=== PATIENT | female | born 1945 | race Caucasian/White ===

== ENCOUNTER → 2020-05-22 10:37 | Outpatient (BNVA) | payer MEDICARE, BC, OTHER, SELFPAY | PROVIDERS: PCP Nurse Practitioner Family; Referring Provider Nurse Practitioner Family; Visit Provider Nurse Practitioner Gerontology | DX: E11.22 Type 2 diabetes mellitus with diabetic chronic kidney disease (principal); E11.40 Type 2 diabetes mellitus with diabetic neuropathy, unspecified; E11.29 Type 2 diabetes mellitus with other diabetic kidney complication; I12.9 Hypertensive chronic kidney disease with stage 1 through stage 4 chronic kidney disease, or unspecified chronic kidney disease; N18.30 Chronic kidney disease, stage 3 unspecified; R80.9 Proteinuria, unspecified; E78.5 Hyperlipidemia, unspecified; Z91.040 Latex allergy status; Z88.2 Allergy status to sulfonamides; Z88.8 Allergy status to other drugs, medicaments and biological substances; Z91.048 Other nonmedicinal substance allergy status; Z79.899 Other long term (current) drug therapy | CPT/HCPCS: 82947; 99212 ==

== ENCOUNTER → 2020-06-05 11:25 | Outpatient (REF) | payer MEDICARE, BC, OTHER, SELFPAY ==
--- NOTE | 2020-06-05 11:37 | CA_ITS ---
Transthoracic Echocardiogram Patient (Last, First, Middle): Wanda Blum M Gender: Female Date of : 1945 Age: 74 Procedure Date: 06/05/2020 Procedure Type: Transthoracic Echocardiogram Location: OP Height: 152.4 cm Weight: 89.81 kg BSA: 1.86 m2 Heart Rate: bpm BP: 128 / 81 mmHg Lapel Baster: LULU Referring MD: Mitul BERMAN Symptoms: systolic murmur Study Quality: Fair ECG Rhythm: Sinus Conclusions: - The left ventricular systolic function is normal. The visually estimated ejection fraction is between 65-70%. - There is mild calcification of the aortic valve. There is no aortic valve stenosis. - No obvious valvular pathology seen on this study. Findings Left Ventricle Normal left ventricular cavity size. There is normal left ventricular wall thickness. The left ventricular systolic function is normal. The visually estimated ejection fraction is between 65-70%. There is no evidence of regional wall motion abnormalities. Diastolic function is normal for age. Right Ventricle Normal right ventricular cavity size and systolic function. Atria The left atrium is normal in size. The right atrium is normal in size. Aortic Valve There is mild calcification of the aortic valve. There is no aortic valve stenosis. There is no aortic valve regurgitation. Mitral Valve There is mild mitral annular calcification. There is trace mitral valve regurgitation. There is no mitral valve stenosis. Pulmonic Valve The pulmonic valve was not well visualized. Tricuspid Valve There is trace tricuspid valve regurgitation. The pulmonary artery systolic pressure is normal. Great Vessels The aortic annulus, sinuses of valsalva, and asc aorta are normal in size. Venous The inferior vena cava is normal in size and collapses greater than 50% with inspiration. Pericardium/Pleural There is no evidence of pericardial effusion. Prior Study Comparison No significant change compared to prior study dated: 10/07/2016. Recommendations, Care & Conclusions No obvious valvular pathology seen on this study. Measurements 2D Linear Measurements IVSd: 0.92 0.6-0.9/0.6-1.0 cm LVIDd: 3.57 3.9-5.3/4.2-5.9 cm LVIDd Index: 1.92 2.4-3.2/2.2-3.1 cm/m2 LVIDs: 2.01 2.0-3.6 cm LVPWd: 0.79 0.7-1.1 cm LA Diam: 3.70 2.7-3.8/3.0-4.0 cm LAIDs Index: 1.99 1.5-2.3 cm/m2 LV Mass: 106.03 67-162/88-224 g LV Mass Index: 57.00 43-95/49-115 g/m2 LVOT Diam: 1.80 3.0+(-)1.3 cm 2D Systolic Function EF 4C: 72.90 >55% EF 2C: 74.40 >55% EF BiP: 75.30 >55% Mitral Valve MV Pk E: 0.71 MV PK A: 1.14 MV Decel Time: 144.00 E/A: 0.60 E'Lateral: 8.22 E'Medial: 9.09 E/E' Med: 7.80 E/E' Lat: 8.60 PHT: 42.00 MVA PHT: 5.24 Decel Atlantic: 4.91 Aortic Valve AoV Pk Felix: 1.79 AoV Pk Grad: 13.00 LVOT LVOT Pk Felix: 1.17 LVOT Mn Felix: 0.82 LVOT VTI: 0.20 LVOT Pk Grad: 5.00 LVOT Mn Grad: 3.00 LVOT Diam: 1.80 LVOT Area: 2.54 Diastolic Function MV Pk E: 0.71 MV Pk A: 1.14 E/A: 0.60 E'Medial: 9.09 E/E' Med: 7.80 E' Laterial: 8.22 E/E' Lat: 8.60 Tricuspid Valve RA Press: 3.00 Great Vessels Aorta Ao Asc: 3.10 2.1-3.4 cm Updated in Other Vendor System with Status of Final Behzad Albright MD electronically signed on 06/06/2020 11:20:37 AM with status of Final
== END ==
LOC: HO.CARD 11:25
PROVIDERS: PCP Nurse Practitioner Family; Visit Provider Nurse Practitioner Family
DX: I10 Essential (primary) hypertension (principal); R06.02 Shortness of breath
CPT/HCPCS: 93306

== ENCOUNTER → 2020-06-19 15:03 | Outpatient (BNVA) | payer MEDICARE, BC, SELFPAY | PROVIDERS: PCP Nurse Practitioner Family; Visit Provider Surgery Vascular Surgery | DX: I73.9 Peripheral vascular disease, unspecified (principal); M81.0 Age-related osteoporosis without current pathological fracture; N18.30 Chronic kidney disease, stage 3 unspecified; Z96.641 Presence of right artificial hip joint; Z96.612 Presence of left artificial shoulder joint | CPT/HCPCS: 99202 ==

== ENCOUNTER 2020-06-26 11:02 | Outpatient (REF) | payer MEDICARE, BC, OTHER, SELFPAY ==
--- NOTE | 2020-06-26 | US_ITS ---
EXAMINATION: US DIAGNOSTIC ULTRASOUND BREAST, LEFT CLINICAL INFORMATION: Left breast pain. COMPARISON: Mammography of same day as well as studies dating back to 06/05/2014. TECHNIQUE: Ultrasound of the breast is performed with real-time tucker scale imaging and color Doppler. FINDINGS: Targeted ultrasound examination in region of pain of the left breast did not demonstrate any abnormal cystic or solid masses. No region of abnormal distal sound shadowing appreciated. US/US breast LT limited IMPRESSION: No suspicious mammographic or ultrasound findings to suggest malignancy. ASSESSMENT: BI-RADS 1: Negative. RECOMMENDATION: Routine annual mammography screening due in 12 months.
--- NOTE | 2020-06-26 | MM_ITS ---
EXAMINATION: MM DIAGNOSTIC DIGITAL BREAST TOMOSYNTHESIS, BILATERAL US BREAST TARGETED, LEFT CLINICAL INFORMATION: Left-sided pain. The lifetime risk of breast cancer based on the Tyrer-Cuzick Model is 2.1%. COMPARISON: Mammography: 03/15/2019 and studies dating back to 06/05/2014. TECHNIQUE: Digital breast tomosynthesis is performed in both the craniocaudal and mediolateral oblique views along with computer-aided detection (CAD). Synthesized 2D images are generated from the tomosynthesis. Bilateral exaggerated craniocaudal views were also performed. FINDINGS: The breasts are almost entirely fatty (ACR BI-RADS breast composition Category a). There are no significant masses, abnormal calcifications, or other abnormalities. Diffuse bilateral secretory calcifications present. Targeted ultrasound examination in region of pain of the left breast did not demonstrate any abnormal cystic or solid masses. No region of abnormal distal sound shadowing appreciated. MM/MM tomosynthesis diagnostic BI IMPRESSION: No suspicious mammographic or ultrasound findings to suggest malignancy. ASSESSMENT: BI-RADS 1: Negative RECOMMENDATION: Routine annual mammography screening due in 12 months. This patient's information was entered into a reminder system with a target due date for their next mammogram.
== END 2020-06-26 11:03 | disposition home or self-care (01) ==
LOC: HO.MAMMO 11:02
PROVIDERS: PCP Nurse Practitioner Family; Visit Provider Nurse Practitioner Family
DX: N64.4 Mastodynia (principal)
CPT/HCPCS: 76642; 77062; 77066

== ENCOUNTER 2020-07-10 14:05 | Outpatient (REF) | payer MEDICARE, BC, OTHER, SELFPAY ==
--- NOTE | 2020-07-10 14:11 | US_ITS ---
EXAMINATION: NONINVASIVE ASSESSMENT OF THE ARTERIES OF BOTH LOWER EXTREMITIES WITH ANKLE PRESSURE MEASUREMENTS, ANKLE BRACHIAL INDICES AND BILATERAL LOWER EXTREMITY DUPLEX CLINICAL INFORMATION: Peripheral vascular disease. TECHNIQUE: Ankle pressure measurements and ankle brachial indices were obtained of the lower extremity arterial system bilaterally. In addition, duplex Doppler techniques with wave form analysis and measurement of velocities in the common femoral, profunda femoral, superficial femoral, popliteal and tibial arteries was performed. The study was performed only at rest. COMPARISON: None FINDINGS: NONINVASIVE ASSESSMENT OF THE ARTERIES OF BOTH LOWER EXTREMITIES WITH ABIs: RIGHT LEG: Right ankle-brachial index: Unable to calculate due to calcified vessels. Right ankle pressures: PT 200 PVR (ankle): Normal LEFT LEG: Ankle-brachial index: Unable to calculate due to calcified vessels. Pressures: PT 200 DP 200 PVR (ankle): Normal LYLE Reference: - >0.97-1.25 = normal - no significant arterial disease - 0.75-0.96 = mild peripheral arterial disease - 0.5-0.74 = moderate peripheral arterial disease - <0.50 = severe peripheral arterial disease BILATERAL LOWER EXTREMITY DUPLEX ULTRASOUND: Right Leg: Common femoral artery: 164 cm/s, Diastolic flow reversal: Yes Profunda femoris artery: 141 cm/s, Diastolic flow reversal: Yes Superficial femoral artery (proximal): 112 cm/s, Diastolic flow reversal: Yes Superficial femoral artery (mid): 140 cm/s, Diastolic flow reversal: Yes Superficial femoral artery (distal): 103 cm/s, Diastolic flow reversal: Yes Popliteal artery: 61.3 cm/s, Diastolic flow reversal: Yes Posterior tibial artery: 38.9 cm/s, Diastolic flow reversal: Yes Left Leg: Common femoral artery: 128 cm/s, Diastolic flow reversal: Yes Profunda femoris artery: 108 cm/s, Diastolic flow reversal: Yes Superficial femoral artery (proximal): 108 cm/s, Diastolic flow reversal: Yes Superficial femoral artery (mid): 145 cm/s, Diastolic flow reversal: Yes Superficial femoral artery (distal): 86.4 cm/s, Diastolic flow reversal: Yes Popliteal artery: 75.6 cm/s, Diastolic flow reversal: Yes Posterior tibial artery: 57.6 cm/s, Diastolic flow reversal: Yes US/US arterial duplex LE BI IMPRESSION: Right Leg: Unable to calculate LYLE due to vessel wall calcification. Duplex evaluation suggests mild common femoral, proximal profunda and mid superficial femoral artery stenosis. Left Leg: Unable to calculate LYLE due to vessel wall calcification. Duplex evaluation suggests mild common femoral and mid superficial femoral artery stenosis.
== END 2020-07-10 14:06 | disposition home or self-care (01) ==
LOC: HO.US 14:05
PROVIDERS: Visit Provider Surgery Vascular Surgery
DX: I70.213 Atherosclerosis of native arteries of extremities with intermittent claudication, bilateral legs (principal)
CPT/HCPCS: 93923; 93925

== ENCOUNTER → 2020-07-24 10:06 | Outpatient (BNVA) | payer MEDICARE, BC, OTHER, SELFPAY | PROVIDERS: PCP Nurse Practitioner Family; Visit Provider Surgery Vascular Surgery | DX: I73.9 Peripheral vascular disease, unspecified (principal) | CPT/HCPCS: 99212 ==

== ENCOUNTER 2020-08-01 06:04 | Day surgery (SDC) | payer MEDICARE, BC, OTHER, SELFPAY ==
[2020-08-01] VITALS (11 sets, daily range): BP systolic 97–148; BP diastolic 30–66; PULSE 62–71; RESP 16–20; TEMP 35.7–36.9; O2SAT 91–99; BMI 38.1
[2020-08-01 06:32] LABS: MANUAL DIFF FLAG NO
[2020-08-01 06:39] LABS: Basophils Percent Auto 0.4 % (0-2); Eosinophils Absolute Auto 0.3 X10*3/uL (0.0-0.4); Eosinophils Percent Auto 3.2 % (0-4); Hematocrit 30.3 % (37-47); Hemoglobin 9.9 g/dl (12.0-16.0); Imm Gran Abs Auto 0.08 X10*3/uL (0.00-0.03); Imm Gran Pct Auto 0.8 % (0.0-0.4); Lymphocytes Absolute Auto 1.4 X10*3/uL (1.2-4.9); Mean Corpuscular HGB Conc 32.7 g/dl (31.0-35.0); Mean Corpuscular Volume 82.8 fL (80-98); Monocytes Absolute Auto 0.7 X10*3/uL (0.1-1.2); Monocytes Percent Auto 6.7 % (2-11); Neutrophils Absolute Auto 8.1 X10*3/uL (2.0-8.3); Neutrophils Percent Auto 75.9 % (45-73); Platelet Count 407 X10*3/uL (160-400); Red Blood Count 3.66 X10*6/uL (4.20-5.50); Red Cell Distribution Width 14.2 % (11.0-16.0); White Blood Count 10.6 X10*3/uL (4.8-10.8)
[2020-08-01 06:43] LABS: Prothrombin Time 12.4 SEC (10.8-13.0)
[2020-08-01 06:46] LABS: Partial Thromboplastin Time 31.3 SEC (24.1-38.0)
[2020-08-01 06:48] LABS: Glucose, Whole Blood 138 mg/dL (60-115)
[2020-08-01 07:12] LABS: Anion Gap 17 (12-20); Blood Urea Nitrogen 32 mg/dL (9-16); Calcium 8.9 mg/dL (8.4-10.2); Carbon Dioxide 22 mmol/L (22-29); Chloride 99 mmol/L (96-108); Creatinine Clr Calc Pharmacy 24.9; Estimated Glomerular Filt Rate 25; Glucose Random 143 mg/dL (60-115); Potassium 4.2 mmol/l (3.3-5.1); Sodium 134 mmol/L (135-145)
[2020-08-01] MEDS: Lidocaine HCl 1 % MPF 5 ML VIAL 10 ML SUBCUT (09:22)
[2020-08-01] MEDS: iohexoL 300 MG/ML 100 ML INFUS..BTL IV (09:23)
--- NOTE | 2020-08-01 12:11 | OP_ITS ---
SURGEON: Troy Cazares MD INDICATIONS: Wanda is a 74-year-old diabetic female with lower extremity pain that has been progressing for sometime now. She underwent noninvasive arterial testing, which was concerning for SFA and common femoral disease. She now presents for endovascular intervention. Risks, benefits, and complications were discussed in detail with the patient. The patient understood and consented. PREOPERATIVE DIAGNOSIS: POSTOPERATIVE DIAGNOSIS: PROCEDURE PERFORMED: ESTIMATED BLOOD LOSS: Minimal. COMPLICATIONS: ANESTHESIA: Local with moderate conscious sedation for a total of 31 minutes. ASSISTANTS: SPECIMENS: None. PREPROCEDURE DIAGNOSIS: Atherosclerosis with activity limiting claudication. POSTPROCEDURE DIAGNOSIS: Atherosclerosis with activity limiting claudication. PROCEDURES PERFORMED: 1. Ultrasound-guided right common femoral access. 2. Aortogram with bilateral lower extremity runoff. DESCRIPTION OF PROCEDURE: The patient was brought to the angiography suite, prior to which a time-out was called for patient identification and site verification. Bilateral groins were prepped and draped in the standard surgical fashion. Under ultrasound guidance, right common femoral was accessed with micropuncture needle, wire, subsequently 4-Anguillan sheath. Flush catheter was brought up to the level of the aorta. Catheter was brought up to the level of the aorta. Aortogram was then undertaken. Catheter was brought up and over into the left SFA and parked in the SFA, through which runoff study was undertaken. No intervention was indicated. Catheter was removed. We subsequently through the 4-Anguillan sheath, did the right lower extremity runoff study. At this point, since no intervention was indicated, sheath was removed. Direct pressure was held for 10 minutes and the patient tolerated the procedure well, returned to Recovery with stable vitals. INTERPRETATION OF FILMS: 1. Aortogram demonstrated normal caliber aorta. Obvious spinal hardware noted. 2. Left lower extremity study demonstrated good flow all the way down to the common femoral, profunda all the way through the SFA, all the way down to 3-vessel runoff. 3. Right lower extremity study demonstrated good flow through the right side down to the common femoral all the way down through the SFA and good 3-vessel runoff, although the vasculature below-knee was somewhat tenuous, but the flow did go on down to the foot. Of note, there was significant hardware noted throughout the right hip and femur. CONCLUSION: Successful diagnostic angiogram. No intervention indicated. DRAINS: None. MD THADDEUS Keen/TRAVIS / [id number]
== END 2020-08-01 13:25 | disposition home or self-care (01) ==
PROVIDERS: PCP Nurse Practitioner Family; Visit Provider Surgery Vascular Surgery
PROC: (CPT 36247; principal; 2020-08-01 07:30)
DX: E11.51 Type 2 diabetes mellitus with diabetic peripheral angiopathy without gangrene (principal); I70.212 Atherosclerosis of native arteries of extremities with intermittent claudication, left leg; Z79.899 Other long term (current) drug therapy; Z96.641 Presence of right artificial hip joint
CPT/HCPCS: 36247; 36245; 36415; 75630; 76942; 80048; 82947; 85025; 85610; 85730; 99152; 99153; C1769; C1887; J2250; J3010; Q9967

== ENCOUNTER → 2020-08-16 11:17 | Outpatient (BNVA) | payer MEDICARE, BC, OTHER, SELFPAY | PROVIDERS: PCP Nurse Practitioner Family; Visit Provider Surgery Vascular Surgery | DX: Z13.89 Encounter for screening for other disorder (principal) | CPT/HCPCS: 99212 ==

== ENCOUNTER → 2020-08-17 10:35 | Outpatient (BNVA) | payer MEDICARE, BC, OTHER, SELFPAY | PROVIDERS: PCP Nurse Practitioner Family; Referring Provider Nurse Practitioner Family; Visit Provider Internal Medicine Endocrinology, Diabetes & Metabolism | DX: Z13.89 Encounter for screening for other disorder (principal) | CPT/HCPCS: Q3014 ==

== ENCOUNTER 2020-09-05 10:23 | Outpatient (REF) | payer MEDICARE, BC, OTHER, SELFPAY ==
[2020-09-05 11:34] LABS: Albumin Level 3.9 g/dL (3.5-5.0); Calcium 9.3 mg/dL (8.4-10.2); Cholesterol 151 mg/dL; HDL Cholesterol 33 mg/dL; LDL Cholesterol Calculated 67 mg/dl; Triglycerides 258 mg/dL
[2020-09-05 11:54] LABS: Vitamin B12 180 pg/mL (200-900)
[2020-09-05 12:08] LABS: Free T4 (Free Thyroxine) 1.12 ng/dL (0.71-1.85); Vitamin D 25-OH Total 49.7 ng/mL (>30)
[2020-09-05 12:18] LABS: Estimated Average Glucose 160 mg/dL; Hemoglobin A1c % 7.2 %
[2020-09-06 04:57] LABS: LDL Cholesterol Direct 94 mg/dL (<100)
== END 2020-09-05 10:24 | disposition home or self-care (01) ==
LOC: HO.LAB 10:23
PROVIDERS: PCP Nurse Practitioner Family; Visit Provider Internal Medicine Endocrinology, Diabetes & Metabolism
DX: E11.29 Type 2 diabetes mellitus with other diabetic kidney complication (principal); M81.0 Age-related osteoporosis without current pathological fracture
CPT/HCPCS: 36415; 80061; 82040; 82306; 82310; 82607; 83036; 83721; 84439; 84443

== ENCOUNTER → 2020-12-04 10:37 | Outpatient (BNVA) | payer MEDICARE, BC, OTHER, SELFPAY | PROVIDERS: PCP Nurse Practitioner Family; Referring Provider Nurse Practitioner Family; Visit Provider Nurse Practitioner Gerontology | DX: E11.29 Type 2 diabetes mellitus with other diabetic kidney complication (principal); E11.22 Type 2 diabetes mellitus with diabetic chronic kidney disease; I12.9 Hypertensive chronic kidney disease with stage 1 through stage 4 chronic kidney disease, or unspecified chronic kidney disease; N18.30 Chronic kidney disease, stage 3 unspecified; E78.5 Hyperlipidemia, unspecified; R80.9 Proteinuria, unspecified | CPT/HCPCS: 82947; 99212 ==

== ENCOUNTER → 2020-12-11 10:20 | Outpatient (BNVA) | payer MEDICARE, BC, OTHER, SELFPAY | PROVIDERS: PCP Nurse Practitioner Family; Visit Provider Internal Medicine | DX: R06.02 Shortness of breath (principal); D64.9 Anemia, unspecified; J44.9 Chronic obstructive pulmonary disease, unspecified; G47.33 Obstructive sleep apnea (adult) (pediatric); Z99.89 Dependence on other enabling machines and devices | CPT/HCPCS: 99202 ==

== ENCOUNTER → 2020-12-18 11:05 | Outpatient (BNVA) | payer MEDICARE, BC, OTHER, SELFPAY | PROVIDERS: PCP Nurse Practitioner Family; Visit Provider Nurse Practitioner Gerontology | DX: E11.22 Type 2 diabetes mellitus with diabetic chronic kidney disease (principal); I12.9 Hypertensive chronic kidney disease with stage 1 through stage 4 chronic kidney disease, or unspecified chronic kidney disease; N18.30 Chronic kidney disease, stage 3 unspecified; E11.29 Type 2 diabetes mellitus with other diabetic kidney complication; R80.9 Proteinuria, unspecified; E78.5 Hyperlipidemia, unspecified | CPT/HCPCS: 82947; 99212 ==

== ENCOUNTER 2020-12-27 12:32 | Outpatient (REF) | payer MEDICARE, BC, OTHER, SELFPAY ==
[2020-12-27 13:43] LABS: Hematocrit 31.1 % (37-47); Mean Corpuscular HGB Conc 32.2 g/dl (31.0-35.0); Mean Corpuscular Hemoglobin 26.8 pg (27.0-33.0); Mean Corpuscular Volume 83.4 fL (80-98); Mean Platelet Volume 11.1 fL (9.4-12.3); Platelet Count 452 X10*3/uL (160-400); Red Blood Count 3.73 X10*6/uL (4.20-5.50); Red Cell Distribution Width 15.1 % (11.0-16.0)
[2020-12-27 13:55] LABS: Estimated Average Glucose 169 mg/dL; Hemoglobin A1c % 7.5 %
[2020-12-27 14:08] LABS: Anion Gap 13 (12-20); Blood Urea Nitrogen 22 mg/dL (9-16); Calcium 8.9 mg/dL (8.4-10.2); Carbon Dioxide 24 mmol/L (22-29); Chloride 103 mmol/L (96-108); Cholesterol 151 mg/dL; Estimated Glomerular Filt Rate 29; Glucose Fasting 122 mg/dL (60-99); HDL Cholesterol 36 mg/dL; Iron 34 mcg/dL (30-160); LDL Cholesterol Calculated 74 mg/dl; Percent Iron Saturation 8 % (15-50); Potassium 4.3 mmol/L (3.3-5.1); Sodium 136 mmol/L (135-145); Total Iron Binding Capacity 405 mcg/dL (228-428); Triglycerides 206 mg/dL; Unsaturated Iron Binding 371 ug/dL
[2020-12-27 14:39] LABS: Folate 4.9 ng/mL (> or = 4.0); Vitamin B12 430 pg/mL (200-900)
[2020-12-28 11:01] LABS: LDL Cholesterol Direct 93 mg/dL (<100)
== END 2020-12-27 12:33 | disposition home or self-care (01) ==
LOC: HO.LAB 12:32
PROVIDERS: Nurse Practitioner Gerontology; PCP Nurse Practitioner Family; Visit Provider Internal Medicine
DX: D64.9 Anemia, unspecified (principal); E11.29 Type 2 diabetes mellitus with other diabetic kidney complication; E11.22 Type 2 diabetes mellitus with diabetic chronic kidney disease; M81.0 Age-related osteoporosis without current pathological fracture
CPT/HCPCS: 36415; 80048; 80061; 82607; 82746; 83036; 83540; 83721; 85027

== ENCOUNTER 2020-12-31 10:51 | Outpatient (REF) | payer MEDICARE, BC, OTHER, SELFPAY ==
--- NOTE | 2020-12-31 17:43 | PFT_ITS ---
INDICATION: Shortness of breath, COPD. SPIROMETRY: The FEV1 to FVC of 83% with an FEV1 of 1.65 L, which is 82% of predicted, and an FVC of 2.0 L, which is 75% predicted. No significant response to bronchodilators noted. Maximum voluntary ventilation 84% predicted. LUNG VOLUMES: Total lung capacity 65% predicted with expiratory reserve volume of 17% predicted. DIFFUSION CAPACITY: DLCO 44% predicted. It does correct to 65% when correcting for the alveolar volume. COMPARISONS: None. INTERPRETATION: No obstructive ventilatory defect. No significant response to bronchodilators noted and normal maximum voluntary ventilation. However, there is a moderate restrictive ventilatory defect of unclear etiology. Considering interstitial lung conditions and/or neuromuscular conditions. The patient also has a significantly decreased expiratory reserve volume secondary to an elevated BMI, which may be playing a role. In addition to that, there is a severe diffusion impairment. Clinical correlation warranted. MD SMITHA Johnson/[facility] / [id number]
== END 2020-12-31 10:52 | disposition home or self-care (01) ==
LOC: HO.RESP 10:51
PROVIDERS: PCP Nurse Practitioner Family; Visit Provider Internal Medicine
DX: J44.9 Chronic obstructive pulmonary disease, unspecified (principal); R06.02 Shortness of breath
CPT/HCPCS: 94060; 94727; 94729

== ENCOUNTER → 2021-01-17 11:03 | Outpatient (BNVA) | payer MEDICARE, BC, OTHER, SELFPAY | PROVIDERS: PCP Nurse Practitioner Family; Visit Provider Internal Medicine | DX: J98.4 Other disorders of lung (principal); R06.02 Shortness of breath; J44.9 Chronic obstructive pulmonary disease, unspecified; G47.33 Obstructive sleep apnea (adult) (pediatric); Z99.89 Dependence on other enabling machines and devices | CPT/HCPCS: 99212 ==

== ENCOUNTER 2021-01-31 11:06 | Outpatient (REF) | payer MEDICARE, BC, OTHER, SELFPAY ==
--- NOTE | ~2021-01-31 | US_ITS ---
EXAMINATION: COLOR-FLOW DUPLEX IMAGING OF THE BILATERAL LOWER EXTREMITY ARTERIAL SYSTEM. VELOCITY MEASUREMENTS THROUGHOUT THE FEMORAL ARTERIES WITH ANKLE-BRACHIAL PERIPHERAL ARTERIAL TESTING. Interventional Radiologist: César Triana M.D., F.S.I.R., F.A.C.R. CLINICAL INFORMATION: This is a 75-year-old female with diabetes. Occlusion and stenosis of unspecified arteries. Peripheral arterial disease. Technique color-flow duplex imaging with spectral waveform analysis was performed. Arterial velocities were measured. The ankle pressures were greater than 200 mmHg. RIGHT FEMORAL RUNOFF VELOCITIES: The right common femoral artery measures 195 cm/s and triphasic. The right profunda femoral artery is 97 cm/s and is triphasic. Right proximal superficial femoral artery measures 134 cm/s and triphasic. Mid superficial femoral artery is 131 cm/s and biphasic. Distal right superficial femoral artery measures 165 cm/s and is triphasic. Right popliteal velocity measures 76 cm/s and is triphasic. The posterior tibial artery velocity measures 75 cm/s and was triphasic. The right ankle-brachial index is 1.28. LEFT FEMORAL RUNOFF VELOCITIES: The left common femoral artery measures 168 cm/s and triphasic. The left profunda femoral artery is 199 cm/s and is triphasic. Left proximal superficial femoral artery measures 118 cm/s and triphasic. Mid superficial femoral artery is 157 cm/s and triphasic. Distal left superficial femoral artery measures 149 cm/s and is triphasic. Left popliteal velocity measures 91 cm/s and is triphasic. The posterior tibial artery velocity measures 118 cm/s and was triphasic. The left ankle brachial index is 1.27. US/US LYLE complete IMPRESSION: 1. Normal bilateral resting peripheral arterial testing without evidence of hemodynamically significant stenosis.
--- NOTE | ~2021-01-31 | US_ITS ---
EXAMINATION: COLOR-FLOW DUPLEX IMAGING OF THE BILATERAL LOWER EXTREMITY ARTERIAL SYSTEM. VELOCITY MEASUREMENTS THROUGHOUT THE FEMORAL ARTERIES WITH ANKLE-BRACHIAL PERIPHERAL ARTERIAL TESTING. Interventional Radiologist: César Triana M.D., F.S.I.R., F.A.C.R. CLINICAL INFORMATION: This is a 75-year-old female with diabetes. Occlusion and stenosis of unspecified arteries. Peripheral arterial disease. Technique color-flow duplex imaging with spectral waveform analysis was performed. Arterial velocities were measured. The ankle pressures were greater than 200 mmHg. RIGHT FEMORAL RUNOFF VELOCITIES: The right common femoral artery measures 195 cm/s and triphasic. The right profunda femoral artery is 97 cm/s and is triphasic. Right proximal superficial femoral artery measures 134 cm/s and triphasic. Mid superficial femoral artery is 131 cm/s and biphasic. Distal right superficial femoral artery measures 165 cm/s and is triphasic. Right popliteal velocity measures 76 cm/s and is triphasic. The posterior tibial artery velocity measures 75 cm/s and was triphasic. The right ankle-brachial index is 1.28. LEFT FEMORAL RUNOFF VELOCITIES: The left common femoral artery measures 168 cm/s and triphasic. The left profunda femoral artery is 199 cm/s and is triphasic. Left proximal superficial femoral artery measures 118 cm/s and triphasic. Mid superficial femoral artery is 157 cm/s and triphasic. Distal left superficial femoral artery measures 149 cm/s and is triphasic. Left popliteal velocity measures 91 cm/s and is triphasic. The posterior tibial artery velocity measures 118 cm/s and was triphasic. The left ankle brachial index is 1.27. US/US arterial duplex LE BI IMPRESSION: 1. Normal bilateral resting peripheral arterial testing without evidence of hemodynamically significant stenosis.
== END 2021-01-31 11:07 | disposition home or self-care (01) ==
LOC: HO.US 11:06
PROVIDERS: Visit Provider Surgery Vascular Surgery
DX: I65.29 Occlusion and stenosis of unspecified carotid artery (principal); I70.213 Atherosclerosis of native arteries of extremities with intermittent claudication, bilateral legs
CPT/HCPCS: 93923; 93925

== ENCOUNTER → 2021-02-14 09:55 | Outpatient (BNVA) | payer MEDICARE, BC, OTHER, SELFPAY | PROVIDERS: PCP Nurse Practitioner Family; Visit Provider Surgery Vascular Surgery | DX: I73.9 Peripheral vascular disease, unspecified (principal) | CPT/HCPCS: 99212 ==

== ENCOUNTER 2021-03-19 14:58 | Outpatient (REF) | payer MEDICARE, BC, OTHER, SELFPAY ==
--- NOTE | ~2021-03-19 | XR_ITS ---
EXAMINATION: XR CHEST CLINICAL INFORMATION: Bibasilar atelectasis. Moderate hiatal hernia. COMPARISON: Most recent chest radiograph dated 03/21/2020 TECHNIQUE: 2 views of the chest were obtained. FINDINGS: Redemonstration of a prominent hiatal hernia, increased when compared to the prior examination. No new airspace consolidation. No pleural effusion or pneumothorax. Stable cardiomediastinal silhouette. XR/XR chest 2V IMPRESSION: Large hiatal hernia, increased in prominence when compared to the prior chest radiographs. No acute cardiopulmonary findings.
== END 2021-03-19 14:59 | disposition home or self-care (01) ==
LOC: HO.XRAY 14:58
PROVIDERS: PCP Nurse Practitioner Family; Visit Provider Internal Medicine
DX: J98.4 Other disorders of lung (principal); R06.02 Shortness of breath
CPT/HCPCS: 71046

== ENCOUNTER → 2021-03-26 11:27 | Outpatient (BNVA) | payer MEDICARE, BC, OTHER, SELFPAY | PROVIDERS: PCP Nurse Practitioner Family; Visit Provider Nurse Practitioner Gerontology | DX: E11.29 Type 2 diabetes mellitus with other diabetic kidney complication (principal); E11.22 Type 2 diabetes mellitus with diabetic chronic kidney disease; I12.9 Hypertensive chronic kidney disease with stage 1 through stage 4 chronic kidney disease, or unspecified chronic kidney disease; N18.30 Chronic kidney disease, stage 3 unspecified; R80.9 Proteinuria, unspecified; E78.5 Hyperlipidemia, unspecified; E66.9 Obesity, unspecified; Z68.30 Body mass index [BMI] 30.0-30.9, adult | CPT/HCPCS: 82947; 99212 ==

== ENCOUNTER → 2021-03-27 11:07 | Outpatient (BNVA) | payer MEDICARE, BC, OTHER, SELFPAY | PROVIDERS: PCP Nurse Practitioner Family; Visit Provider Internal Medicine | DX: J98.4 Other disorders of lung (principal); G47.33 Obstructive sleep apnea (adult) (pediatric); E66.9 Obesity, unspecified; Z99.89 Dependence on other enabling machines and devices; R06.02 Shortness of breath | CPT/HCPCS: 99212 ==

== ENCOUNTER → 2021-04-25 12:30 | Outpatient (BNVA) | payer MEDICARE, BC, OTHER, SELFPAY | PROVIDERS: PCP Nurse Practitioner Family; Visit Provider Dietitian, Registered | DX: E11.22 Type 2 diabetes mellitus with diabetic chronic kidney disease (principal); N18.9 Chronic kidney disease, unspecified | CPT/HCPCS: 97802 ==

== ENCOUNTER → 2021-06-06 12:42 | Outpatient (BNVA) | payer MEDICARE, BC, OTHER, SELFPAY | PROVIDERS: PCP Nurse Practitioner Family; Visit Provider Dietitian, Registered | DX: E11.22 Type 2 diabetes mellitus with diabetic chronic kidney disease (principal); N18.9 Chronic kidney disease, unspecified | CPT/HCPCS: 97803 ==

== ENCOUNTER 2021-06-19 15:00 | Outpatient (RCR) | payer MEDICARE, BC, OTHER, SELFPAY ==
--- NOTE | 2021-05-29 17:08 | MHC.PT.EP ---
[facility] [place] [facility] [place] [facility] [place] [facility] [address] Amandeep Hall [address] [phone] F: [phone] F: [phone] F: [phone] F: [phone] Physical Therapy Plan of Care Date of Evaluation: Date of Surgery: Diagnosis: B LE weakness. Assessment: Pt is a 75 y/o female referred to Pt for eval and treat of B LE weakness who presents with R > L LE dysfunction resulting in decreased tolerance for standing and walking, performing HH chores, as well as getting in and out of vehicles secondary to decreased R hip ROM, decreased B LE strength, gait abnormality, increased body habitus, and sedentary lifestyle. Pt is deemed an appropriate candidate to receive skilled PT in order to address her physical limitations to improve her functional ability. Frequency and Duration: The patient will be seen 1 x/ wk x 6 wks. Short Term Goals: initiate HEP. improve R hip flexion to > 114 degrees; initial 90 degrees PROM. Intermediate Goals: In 6 weeks: I with HEP. Pt will be able to stand for an hour with at most a little bit of difficulty; initial: quite a bit of difficulty. Pt will be able to walk between rooms with at most moderate difficulty; initial: extreme difficulty. Treatment Plan: Modalities to reduce pain, spasms and effusion. Manual therapy to restore motion and function. Therapeutic exercise to improve strength and flexibility. Neuromuscular re-education for posture and balance. Therapeutic activities to return to functional activities of daily living. Electronically signed by: Branden Stokes PT. Please sign and return to therapist. Thank you for your referral.
--- NOTE | 2021-11-25 11:40 | MHC.PT.DC ---
[facility] [place] Office [place] Office [place] [facility] [address] Amandeep Hall [address] [phone] F: [phone] F: [phone] F: [phone] F: [phone] Physical Therapy Discharge Report Diagnosis: B LE weakness. Date of Surgery: Date of Evaluation: 05/29/21 Date of Discharge: 06/19/21 Treatments to Date: 3 Cancellations to Date: No Shows to Date: Discharge Status: Patient Elected to Stop Discharge Summary: Pt has poor ability for R ankle DF likely d/t her neuropathy; Reports she may have an AFO after discussing devices and will look for is as it has been a while since shes seen it. fair ravi for exercises, several rest breaks d/t fatigue; Pt requested early dismissal d/t fatigue. Electronically signed by: Amauri Arce PT Please sign and return to therapist. Thank you for your referral.
== END 2021-11-25 11:41 | disposition home or self-care (01) ==
LOC: HO.PTCHIC 15:00
PROVIDERS: PCP Nurse Practitioner Family; Visit Provider Nurse Practitioner Family
DX: R29.898 Other symptoms and signs involving the musculoskeletal system (principal)
CPT/HCPCS: 97110; 97116; 97140; 97162

== ENCOUNTER 2021-07-02 08:50 | Day surgery (SDC) | payer MEDICARE, BC, OTHER, SELFPAY ==
[2021-06-26 14:47] VITALS: BMI 35.7
--- NOTE | 2021-07-01 09:20 | HO.ANESPROP2 ---
Documented by User: Namita Beth NP 07/01/21 09:23 HPI - Anesthesia Eval Consult details Narrative: 75yo F for Upper Endoscopy PMF Active Problems Active Problems: All Active Problems (Updated 06/26/21 @ 15:06 by Karen Mcfarland RN) Hyperparathyroidism, unspecified (Acute) Acute sinusitis (Acute) SOB (shortness of breath) (Acute) Breast pain, left (Acute) PAD (peripheral artery disease) (Acute) Obesity (BMI 30-39.9) (Acute) Stress (Acute) SOB (shortness of breath) (Acute) COPD (chronic obstructive pulmonary disease) (Acute) Restrictive lung disease (Acute) Weakness of both lower extremities (Acute) Restrictive lung disease (Acute) Obesity (BMI 30-39.9) (Acute) GOPAL on CPAP (Acute) Anemia (Acute) B12 deficiency (Acute) Vitamin D deficiency (Acute) Type 2 diabetes mellitus with chronic kidney disease (Acute) Chronic kidney disease, stage 3 (Acute) Type 2 diabetes mellitus with other diabetic kidney complication (Acute) Proteinuria (Acute) Dyslipidemia (Acute) Essential hypertension (Acute) Adult BMI 30.0-30.9 kg/sq m (Acute) Decreased pedal pulses (Acute) Age-related osteoporosis without current pathological fracture (Acute) Past Medical History Medical History Adult BMI 30.0-30.9 kg/sq m Age-related osteoporosis without current pathological fracture Anemia B12 deficiency Breast pain, left Celiac disease Chronic kidney disease, stage 3 CKD (chronic kidney disease) Decreased pedal pulses Diabetes mellitus with complication Dyslipidemia Essential hypertension GERD (gastroesophageal reflux disease) Gitelman disease Gout Hiatal hernia IBS (irritable bowel syndrome) Neuropathy Obesity (BMI 30-39.9) On beta jody at home GOPAL on CPAP Osteoarthritis Proteinuria Restrictive lung disease Retinopathy Right rotator cuff tear Seizures 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 Mother Cancer Diabetes Surgical History Surgical History History of back surgery History of carpal tunnel surgery of right wrist History of left shoulder replacement History of revision of total replacement of right hip joint History of total left knee replacement Hx of colonoscopy Hx of fracture of fibula Social History Social History Household Members: Spouse Household Members Other:: 2 daughter and their children Housing: House Are you a primary career and technology education teacher to a significant other at home: No Do you presently have visiting nurse or other home services: No Alcohol intake: current Patient Tobacco Use Status: Former Tobacco user Tobacco use type: Cigarette Years Smoked: 1963 e-Cigarette/Vaping Use: Never Used Second Hand Smoke Exposure: Yes Use of substances other than those prescribed or required for medical reasons: No Have you been hit, kicked, punched, or otherwise hurt by someone within the past year? If so, by whom?: No Advance Directives: No Advance Directives Information Provided: No Advance Directives on File: No Recently lost weight without trying: No Eating poorly because of decreased appetite: No Nutrition Risks: No Nutritional Risk Patient : No Current occupational status: retired Meds Allergies Allergy/AdvReac Type Severity Reaction Status Date / Time sulfamethoxazole Allergy Unknown UNKNOWN Verified 07/02/21 09:27 [From BACTRIM] trimethoprim [From BACTRIM] Allergy Unknown UNKNOWN Verified 07/02/21 09:27 PLASTIC TAPE Allergy Intermediate RASH Uncoded 06/26/21 14:44 Adhesive Bandages Allergy Unknown bilsters Uncoded 06/26/21 14:44 From Dilantin Allergy Unknown Hives Uncoded 06/26/21 14:44 Home Medications Medication Instructions Recorded Confirmed Last Taken Type blood sugar diagnostic #10 ea 05/17/20 05/08/21 Unknown History lancets 33 gauge #100 ea 05/17/20 05/08/21 Unknown History magnesium oxide 400 mg (241.3 mg 400 mg PO BID 05/22/20 06/26/21 08/01/20 05:00 History magnesium) tablet tramadol 50 mg tablet 50 mg PO PRN tab 08/17/20 05/08/21 Unknown History mirabegron 50 mg tablet,extended 50 mg PO DAILY 03/26/21 06/26/21 Unknown History release 24 hr (Myrbetriq) duloxetine 20 mg capsule,delayed 20 mg PO DAILY 05/08/21 06/26/21 07/02/21 07:10 History release Exam Exam Date and Time: July 01, 2021 0920 Height,Weight and Vital Signs: Height 5 ft 3 in Weight 91.626 kg Pertinent Lab Results Pertinent Lab Results: Laboratory Tests 12/27/20 12/27/20 12:58 12:58 WBC 10.0 Hgb 10.0 L Hct 31.1 L Plt Count 452 H Sodium 136 Potassium 4.3 Chloride 103 Carbon Dioxide 24 BUN 22 H Creatinine 1.72 H Assessment and Plan Assessment Anesthesia Assessment: Chart Reviewed Documented by User: Tatiana Viramontes MD 07/02/21 10:42 [facility] Past Medical History Medical History Adult BMI 30.0-30.9 kg/sq m Age-related osteoporosis without current pathological fracture Anemia B12 deficiency Breast pain, left Celiac disease Chronic kidney disease, stage 3 CKD (chronic kidney disease) Decreased pedal pulses Diabetes mellitus with complication Dyslipidemia Essential hypertension GERD (gastroesophageal reflux disease) Gitelman disease Gout Hiatal hernia IBS (irritable bowel syndrome) Neuropathy Obesity (BMI 30-39.9) On beta jody at home GOPAL on CPAP Osteoarthritis Proteinuria Restrictive lung disease Retinopathy Right rotator cuff tear Seizures 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 Mother Cancer Diabetes Family history of problems with anesthesia: No Surgical History Surgical History History of back surgery History of carpal tunnel surgery of right wrist History of left shoulder replacement History of revision of total replacement of right hip joint History of total left knee replacement Hx of colonoscopy Hx of fracture of fibula History of Problems with Anesthesia: No Social History Social History Household Members: Spouse Household Members Other:: 2 daughter and their children Housing: House Are you a primary career and technology education teacher to a significant other at home: No Do you presently have visiting nurse or other home services: No Alcohol intake: current Patient Tobacco Use Status: Former Tobacco user Tobacco use type: Cigarette Years Smoked: 1963 e-Cigarette/Vaping Use: Never Used Second Hand Smoke Exposure: Yes Use of substances other than those prescribed or required for medical reasons: No Have you been hit, kicked, punched, or otherwise hurt by someone within the past year? If so, by whom?: No Advance Directives: No Advance Directives Information Provided: No Advance Directives on File: No Recently lost weight without trying: No Eating poorly because of decreased appetite: No Nutrition Risks: No Nutritional Risk Patient : No Current occupational status: retired Meds Allergies Allergy/AdvReac Type Severity Reaction Status Date / Time sulfamethoxazole Allergy Unknown UNKNOWN Verified 07/02/21 09:27 [From BACTRIM] trimethoprim [From BACTRIM] Allergy Unknown UNKNOWN Verified 07/02/21 09:27 PLASTIC TAPE Allergy Intermediate RASH Uncoded 06/26/21 14:44 Adhesive Bandages Allergy Unknown bilsters Uncoded 06/26/21 14:44 From Dilantin Allergy Unknown Hives Uncoded 06/26/21 14:44 Home Medications Medication Instructions Recorded Confirmed Last Taken Type blood sugar diagnostic #10 ea 05/17/20 05/08/21 Unknown History lancets 33 gauge #100 ea 05/17/20 05/08/21 Unknown History magnesium oxide 400 mg (241.3 mg 400 mg PO BID 05/22/20 06/26/21 08/01/20 05:00 History magnesium) tablet tramadol 50 mg tablet 50 mg PO PRN tab 08/17/20 05/08/21 Unknown History mirabegron 50 mg tablet,extended 50 mg PO DAILY 03/26/21 06/26/21 Unknown History release 24 hr (Myrbetriq) duloxetine 20 mg capsule,delayed 20 mg PO DAILY 05/08/21 06/26/21 07/02/21 07:10 History release Exam Height,Weight and Vital Signs: Height 5 ft 3 in Weight 91.626 kg Vital Signs Temp Pulse Resp BP Pulse Ox 07/02/21 09:33 96.9 F 74 20 132/50 L 91 L Pertinent Lab Results Pertinent Lab Results: Laboratory Tests 12/27/20 12/27/20 12:58 12:58 WBC 10.0 Hgb 10.0 L Hct 31.1 L Plt Count 452 H Sodium 136 Potassium 4.3 Chloride 103 Carbon Dioxide 24 BUN 22 H Creatinine 1.72 H Lab Results 07/02/21 Range/Units 09:24 POC Glucose 139 H (60-115) mg/dL Airway Mallampati Class: II TM Dist: >3cm Neck ROM: Full Loose/Missing/Broken Teeth: Yes (Some missing) Heart: RRR Lungs: CTAB Assessment and Plan Assessment Anesthesia Assessment: Anesthesia Plan Discussed Final Anesthetic Review Family History of Problems with Anesthesia: No History of Problems with Anesthesia: No NPO: Yes ASA Class: III Final Preanesthetic Review: No Changes in Pt Med Stat, Meds/Allgs Chart Reviewed and Anes Risks/Benef Reviewed Patient Risk: Intermediate Procedure Risk: Low Assessment/Block/Sedation in SS: Assess/Block/Sedation-SS Anesthetic Plan Anesthetic Plan: MAC: Disposition: Standard PACU
[2021-07-02 09:33] VITALS: BP 132/50; PULSE 74; RESP 20; TEMP 36.1; O2SAT 91
--- NOTE | 2021-07-02 10:03 | MHC.SHP ---
Pre-Procedural Eval Section A Date of Service: 07/02/21 The patient is an INPATIENT: No Changes since office visit: No Cold of Flu in the past 2 weeks, No New Medical Problems, No Changes in Medication and No Patient answered all questions The History & Physical has been completed within 30 days and I have reviewed it.: Yes Section B Chief Complaint: screening Allergies: Allergies Allergy/AdvReac Type Severity Reaction Status Date / Time sulfamethoxazole Allergy Unknown UNKNOWN Verified 07/02/21 09:27 [From BACTRIM] trimethoprim [From BACTRIM] Allergy Unknown UNKNOWN Verified 07/02/21 09:27 PLASTIC TAPE Allergy Intermediate RASH Uncoded 06/26/21 14:44 Adhesive Bandages Allergy Unknown bilsters Uncoded 06/26/21 14:44 From Dilantin Allergy Unknown Hives Uncoded 06/26/21 14:44 Plan I have reviewed the history and physical and performed a pertinent physical examination on my patient. No changes have occurred unless specified.
[2021-07-02] MEDS: Lactated Ringers 1,000 ML 50 ML IVCONT (10:25)
[2021-07-02 10:28] LABS: Glucose, Whole Blood 139 mg/dL (60-115)
[2021-07-02 11:27] VITALS: BP 81/32; PULSE 70; RESP 16; TEMP 36.8; O2SAT 92
--- NOTE | 2021-07-02 11:30 | PM.OP ---
Brief Operative Note Date of Service: 07/02/21 Pre-op diagnosis: gerd Post-op diagnosis: same Procedure: egd Surgeon: Rc Kathleen Anesthesia: MAC Was an Biostatistics Director used for this Procedure?: No Estimated blood loss (mL): 5 Pathology: other (bxs antrum, egj, duodenum) Condition: stable Disposition: PACU
[2021-07-02 11:42] VITALS: BP 128/48; PULSE 67; RESP 16; O2SAT 92
[2021-07-02 11:54] VITALS: BP 120/48; PULSE 66; RESP 16; TEMP 36.8; O2SAT 93
--- NOTE | 2021-07-02 12:16 | OP_ITS ---
SURGEON: Rc Kathleen MD INDICATIONS: Gastroesophageal reflux disease and abnormal celiac antibody panel. PREOPERATIVE DIAGNOSIS: POSTOPERATIVE DIAGNOSIS: PROCEDURE PERFORMED: Upper endoscopy with biopsy. ESTIMATED BLOOD LOSS: COMPLICATIONS: ANESTHESIA: ASSISTANTS: SPECIMENS: MEDICATIONS: Monitored anesthesia care. DESCRIPTION OF PROCEDURE: History and physical performed. The risks and benefits of the procedure were explained to the patient. Informed consent was obtained. The patient was placed in left lateral decubitus position. The Olympus video gastroscope was introduced into the esophagus, stomach, and duodenum. Examination was performed and the scope was removed. She tolerated the procedure well and was taken to recovery area in stable condition. FINDINGS: Esophagus: The esophagus was tortuous and had a sigmoid appearance. The EG junction was normal without any evidence of esophagitis. Biopsies were obtained at the EG junction. Stomach: The stomach showed an 8 cm hiatal hernia with some retained food. In the hiatal hernia, there were linear streaks of erythema in the body consistent with mild gastritis. Biopsies were obtained from the antrum. Duodenum: The bulb and second portion were normal. No evidence of scalloping of the duodenal folds. Biopsies were obtained from the second portion because of her abnormal celiac antibody panel. IMPRESSION: 1. Gastroesophageal reflux disease. 2. Hiatal hernia. 3. Abnormal celiac antibody panel. RECOMMENDATION: Follow up the biopsy results. MD BREN Ma/TRAVIS / [id number]
== END 2021-07-02 12:45 | disposition home or self-care (01) ==
PROVIDERS: PCP Nurse Practitioner Family; Visit Provider Internal Medicine Gastroenterology
PROC: 0DJ08ZZ Inspection of Upper Intestinal Tract, Via Natural or Artificial Opening Endoscopic (ICD-10-PCS; CPT 43235; principal; 2021-07-02 09:50)
DX: R89.4 Abnormal immunological findings in specimens from other organs, systems and tissues (principal); K29.60 Other gastritis without bleeding; K22.89 Other specified disease of esophagus; K21.9 Gastro-esophageal reflux disease without esophagitis; K44.9 Diaphragmatic hernia without obstruction or gangrene; K58.2 Mixed irritable bowel syndrome; E83.42 Hypomagnesemia; G40.909 Epilepsy, unspecified, not intractable, without status epilepticus; Z83.71 Family history of colonic polyps; Z79.899 Other long term (current) drug therapy; Z88.8 Allergy status to other drugs, medicaments and biological substances
CPT/HCPCS: 43239; 82947; 88305; 88342; J3010

== ENCOUNTER 2021-09-16 12:47 | Outpatient (REF) | payer MEDICARE, OTHER, BC, SELFPAY ==
--- NOTE | ~2021-09-16 | MM_ITS ---
EXAMINATION: MM SCREENING DIGITAL BREAST TOMOSYNTHESIS, BILATERAL CLINICAL INFORMATION: Screening. Asymptomatic. The lifetime risk of breast cancer based on the Tyrer-Cuzick Model is 2%. COMPARISON: Mammography: 06/26/2020, 03/15/2019, 02/22/2018 TECHNIQUE: Digital breast tomosynthesis is performed in both the craniocaudal and mediolateral oblique views along with computer-aided detection (CAD). Synthesized 2D images are generated from the tomosynthesis. Additional exaggerated left CC view is provided. FINDINGS: There are scattered areas of fibroglandular density (ACR BI-RADS breast composition Category b). Extensive bilateral scattered benign ductal secretory calcifications are again noted. There is no interval mass or architectural abnormality or developing density. The axilla and skin contours are unremarkable. No significant changes from prior studies. MM/MM tomosynthesis screening BI IMPRESSION: No mammographic evidence of malignancy. ASSESSMENT: BI-RADS 2: Benign RECOMMENDATION: Routine annual mammography screening. This patient's information was entered into a reminder system with a target due date for their next mammogram.
== END 2021-09-16 12:48 | disposition home or self-care (01) ==
LOC: HO.MAMMO 12:47
PROVIDERS: PCP Nurse Practitioner Family; Visit Provider Nurse Practitioner Family
DX: Z12.31 Encounter for screening mammogram for malignant neoplasm of breast (principal)
CPT/HCPCS: 77063; 77067

== ENCOUNTER 2021-09-16 13:30 | Outpatient (REF) | payer MEDICARE, OTHER, BC, SELFPAY ==
--- NOTE | ~2021-09-16 | XR_ITS ---
EXAMINATION: XR RIBS, BILATERAL CLINICAL INFORMATION: Rib pain COMPARISON: Previous chest x-ray February 2021 TECHNIQUE: 3 views of the bilateral ribs and chest were obtained. FINDINGS: The cardiac and mediastinal contours are stable. There is a large air-fluid level behind the heart suggestive of an esophageal hernia. The lungs are clear. There is slight blunting at the bilateral costophrenic angles questionable for small bilateral pleural effusions or pleural thickening. This appears unchanged. There is no pneumothorax. There is arthritis at the right shoulder joint. There is a left humeral prosthesis. There are old left anterior rib fractures. No acute fracture is seen. There are degenerative changes of the spine. Lower thoracic vertebral body compression fracture seen on previous chest x-ray is not well appreciated. XR/XR ribs BI min 4V w CXR1V IMPRESSION: No evidence for acute disease in the chest. Old left anterior rib fractures. No acute rib fracture.
== END 2021-09-16 13:31 | disposition home or self-care (01) ==
LOC: HO.XRAY 13:30
PROVIDERS: PCP Nurse Practitioner Family; Visit Provider Physician Assistant Surgical
DX: Z12.31 Encounter for screening mammogram for malignant neoplasm of breast (principal); R07.81 Pleurodynia
CPT/HCPCS: 71111; 77063; 77067

== ENCOUNTER → 2021-10-29 11:29 | Outpatient (BNVA) | payer MEDICARE, OTHER, BC, SELFPAY | PROVIDERS: PCP Nurse Practitioner Family; Visit Provider Nurse Practitioner Gerontology | DX: E11.22 Type 2 diabetes mellitus with diabetic chronic kidney disease (principal); E11.29 Type 2 diabetes mellitus with other diabetic kidney complication; E11.42 Type 2 diabetes mellitus with diabetic polyneuropathy; E11.319 Type 2 diabetes mellitus with unspecified diabetic retinopathy without macular edema; E11.65 Type 2 diabetes mellitus with hyperglycemia; I12.9 Hypertensive chronic kidney disease with stage 1 through stage 4 chronic kidney disease, or unspecified chronic kidney disease; R80.9 Proteinuria, unspecified; N18.30 Chronic kidney disease, stage 3 unspecified; M81.0 Age-related osteoporosis without current pathological fracture; E55.9 Vitamin D deficiency, unspecified; E53.8 Deficiency of other specified B group vitamins; Z88.2 Allergy status to sulfonamides; Z88.8 Allergy status to other drugs, medicaments and biological substances; Z79.4 Long term (current) use of insulin; Z79.899 Other long term (current) drug therapy | CPT/HCPCS: 82947; 83036; 99212 ==

== ENCOUNTER → 2021-12-05 10:47 | Outpatient (BNVA) | payer MEDICARE, BC, SELFPAY | PROVIDERS: PCP Nurse Practitioner Family; Visit Provider Nurse Practitioner Gerontology | DX: E11.22 Type 2 diabetes mellitus with diabetic chronic kidney disease (principal); E11.29 Type 2 diabetes mellitus with other diabetic kidney complication; E11.42 Type 2 diabetes mellitus with diabetic polyneuropathy; I12.9 Hypertensive chronic kidney disease with stage 1 through stage 4 chronic kidney disease, or unspecified chronic kidney disease; N18.30 Chronic kidney disease, stage 3 unspecified; R80.9 Proteinuria, unspecified; R78.5 Finding of other psychotropic drug in blood | CPT/HCPCS: 82947; 99212 ==

== ENCOUNTER → 2022-01-16 10:56 | Outpatient (BNVA) | payer MEDICARE, BC, OTHER, SELFPAY | PROVIDERS: PCP Nurse Practitioner Family; Visit Provider Internal Medicine Endocrinology, Diabetes & Metabolism | DX: M81.0 Age-related osteoporosis without current pathological fracture (principal) | CPT/HCPCS: 99212 ==

== ENCOUNTER 2022-01-21 10:52 | Outpatient (REF) | payer MEDICARE, OTHER, BC, SELFPAY ==
--- NOTE | ~2022-01-21 | US_ITS ---
EXAMINATION: Noninvasive assessment of the bilateral lower extremities with ARTERIAL DUPLEX and ANKLE BRACHIAL INDICES (ABIs). ? CLINICAL INFORMATION: Peripheral vascular disease ? TECHNIQUE: Duplex Doppler techniques with waveform analysis and measurement of velocities in the bilateral common femoral, profunda femoris, superficial femoral, popliteal and tibial arteries were performed. Additionally, ankle pulse volume recordings, ankle pressure measurements and ankle brachial indices were obtained of the lower extremity arterial system bilaterally. The study was performed only at rest. ? COMPARISON: Noninvasive evaluation from 01/31/2021 ? FINDINGS: ? DIRECT DUPLEX DOPPLER FINDINGS: ? RIGHT LEG: Common femoral artery:?130 cm/s, phasicity: Triphasic Profunda femoris artery:??70.4 cm/s, phasicity: Triphasic Superficial femoral artery (proximal):?109 cm/s, phasicity: Biphasic Superficial femoral artery (mid):?89.7 cm/s, phasicity: Biphasic Superficial femoral artery (distal):?108 cm/s, phasicity: Biphasic Popliteal artery:?80.3 cm/s, phasicity: Triphasic Posterior tibial artery:?87.4 cm/s, phasicity: Biphasic Peroneal artery:?46.8 cm/s, phasicity: Biphasic ? LEFT LEG: Common femoral artery:?116 cm/s, phasicity: Triphasic Profunda femoris artery:?68.6?cm/s, phasicity: Biphasic Superficial femoral artery (proximal):?90.3?cm/s, phasicity: Triphasic Superficial femoral artery (mid):?80.3 cm/s, phasicity: Biphasic Superficial femoral artery (distal):?103?cm/s, phasicity: Triphasic Popliteal artery:?89.7?cm/s, phasicity: Biphasic Posterior tibial artery:?86.2?cm/s, phasicity: Biphasic Peroneal artery:?79.2 cm/s, phasicity: Biphasic ANKLE-BRACHIAL INDEX: ? Right: 1.26? Left: 1.24 ? ANKLE PRESSURES: ? Right: PT 209, DP?201?? Left: PT?205, DP?206?? ? ANKLE PVR WAVEFORMS: ? Right: Normal Left: Normal? ? Right leg:???Normal ankle brachial index. Normal duplex Doppler velocities and waveforms. No significant change compared to the prior exam ? Left leg:??? Normal ankle brachial index. Normal duplex Doppler velocities and waveforms. No significant change compared to the prior exam ? ?? LYLE Reference: - >1.4 = calcified vessels - 0.9 - 1.4 = normal - no significant arterial disease - 0.7 - 0.89 = mild peripheral arterial disease - 0.51 - 0.69 = moderate peripheral arterial disease - ? 0.50 = severe peripheral arterial disease - < .30 = critical arterial disease US/US arterial duplex LE BI IMPRESSION: ?
--- NOTE | ~2022-01-21 | US_ITS ---
Please associate with accession number [id number]
== END 2022-01-21 10:53 | disposition home or self-care (01) ==
LOC: HO.US 10:52
PROVIDERS: PCP Nurse Practitioner Family; Visit Provider Surgery Vascular Surgery
DX: I73.9 Peripheral vascular disease, unspecified (principal)
CPT/HCPCS: 93923; 93925

== ENCOUNTER → 2022-01-28 11:48 | Outpatient (BNVA) | payer MEDICARE, BC, SELFPAY | PROVIDERS: PCP Nurse Practitioner Family; Visit Provider Surgery Vascular Surgery | DX: I73.9 Peripheral vascular disease, unspecified (principal) | CPT/HCPCS: 99212 ==

== ENCOUNTER 2022-03-05 14:23 | Outpatient (REF) | payer MEDICARE, OTHER, BC, SELFPAY ==
--- NOTE | ~2022-03-05 | MM_ITS ---
EXAMINATION: BONE DENSITOMETRY CLINICAL INDICATION: Osteoporosis. COMPARISON: Previous BD dated 01/27/2020 and baseline BD dated 05/11/2008. TECHNIQUE: Using a [employer] DXA System (software version: 13.1) manufactured by [employer], dual-energy x-ray absorptiometry was performed of the lumbar spine and left hip. The images are of good technical quality. Summary results are attached. FINDINGS: AP SPINE L1-L3 (excluding L4): The data of L1-L4 has been changed to exclude the L4 vertebral body, because degenerative at this level may cause overestimation of lumbar spine density. Current: BMD 1.305 g/cm2, Z-score 2.1, T-score 1.1, normal, 3.4% increase from previous, 8.2% increase from baseline (<5% change is not significant). Prior: BMD 1.262 g/cm2. Baseline: BMD 1.206 g/cm2. LEFT FEMUR, NECK: Current: BMD 0.775 g/cm2, Z-score -0.4, T-score -1.9, osteopenia. Prior: BMD 0.807 g/cm2. Baseline: BMD 0.824 g/cm2. LEFT FEMUR, TOTAL: Current: BMD 0.833 g/cm2, Z-score -0.1, T-score -1.4, osteopenia, 2.3% increase from previous, 13.0% decrease from baseline (<5% change is not significant). Prior: BMD 0.814 g/cm2. Baseline: BMD 0.957 g/cm2. IDENTIFIED RISK FACTORS: Menopause, hysterectomy, history of fracture (adult), height loss, glucocorticoids (chronic), osteoporosis, recurrent falls, renal. HISTORY OF FRACTURE: Femur, hip, humerus, pelvis, shoulder, wrist. MEDICATIONS: Calcium or multivitamin. Vitamin D. MM/XR DEXA axial skeleton IMPRESSION: 1. DIAGNOSIS: Osteopenia based on the lowest T-score value of -1.9 in the femoral neck applying World Health Organization criteria. 2. 10-YEAR FRACTURE RISK PREDICTION, FRAX: Major osteoporotic fracture (clinical spine, forearm, hip or shoulder) 18.6%. Hip fracture 4.3%. 3. Treatment Recommendations: NOF guidelines recommend consideration for treatment in postmenopausal women and men age 50 and older presenting with the following: -A hip or vertebral (clinical or morphometric) fracture. -T-score less than or equal to -2.5 at the femoral neck or spine after appropriate evaluation to exclude secondary causes. -Low bone mass at the hip or spine and a 10-year fracture probability by FRAX of greater than or equal to 3% for hip fracture or greater than or equal to 20% for major osteoporotic fracture based on the [place] adapted WHO algorithm. 4. Other Recommendations: All treatment decisions require clinical judgment and consideration of individual patient factors, including patient preferences, comorbidities, previous drug use, risk factors not captured in the FRAX model (e.g. frailty, falls, vitamin D deficiency, increased bone turnover, interval significant decline in bone density) and possible under or overestimation of fracture risk by FRAX. Additional medical evaluation for secondary cause of low bone mineral density may be appropriate. FUTURE SCAN RECOMMENDATION: People with diagnosed cases of osteoporosis or at high risk for fracture should have regular bone mineral density tests. For patients eligible for Medicare, routine testing is allowed once every 2 years. The testing frequency can be increased to one year for patients who have rapidly progressing disease, those who are receiving or discontinuing medical therapy to restore bone mass, or have additional risk factors.
== END 2022-03-05 14:24 | disposition home or self-care (01) ==
LOC: HO.MAMMO 14:23
PROVIDERS: PCP Nurse Practitioner Family; Visit Provider Internal Medicine Endocrinology, Diabetes & Metabolism
DX: M81.0 Age-related osteoporosis without current pathological fracture (principal)
CPT/HCPCS: 77080

== ENCOUNTER 2022-03-19 16:17 | Outpatient (REF) | payer MEDICARE, OTHER, BC, SELFPAY ==
[2022-03-19 16:50] LABS: MANUAL DIFF FLAG NO
[2022-03-19 17:48] LABS: Basophils Absolute Auto 0.1 X10*3/uL (0.0-0.2); Basophils Percent Auto 0.4 % (0-2); Eosinophils Absolute Auto 0.2 X10*3/uL (0.0-0.4); Eosinophils Percent Auto 1.8 % (0-4); Hematocrit 36.4 % (37.0-47.0); Hemoglobin 12.6 g/dl (12.0-16.0); Imm Gran Pct Auto 0.8 % (0.0-0.4); Lymphocytes Absolute Auto 1.1 X10*3/uL (1.2-4.9); Lymphocytes Percent Auto 9.2 % (20-40); Mean Corpuscular HGB Conc 34.6 g/dl (31.0-35.0); Mean Corpuscular Hemoglobin 29.4 pg (27.0-33.0); Mean Corpuscular Volume 84.8 fL (80.0-98.0); Mean Platelet Volume 11.5 fL (9.4-12.3); Monocytes Absolute Auto 0.8 X10*3/uL (0.1-1.2); Monocytes Percent Auto 6.8 % (2-11); Neutrophils Absolute Auto 9.8 x10*3/uL (2.0-8.3); Platelet Count 374 X10*3/uL (160-400); Red Blood Count 4.29 X10*6/uL (4.20-5.50); Red Cell Distribution Width 12.7 % (11.0-16.0); White Blood Count 12.1 X10*3/uL (4.8-10.8)
[2022-03-19 17:53] LABS: Alanine Aminotransferase 17 U/L (0-31); Albumin Level 3.8 g/dL (3.5-5.0); Alkaline Phosphatase 75 U/L (39-117); Anion Gap 18 (12-20); Aspartate Amino Transferase 29 U/L (5-31); Bilirubin Total 0.3 mg/dL (0.0-1.0); Blood Urea Nitrogen 23 mg/dL (9-16); Calcium 10.4 mg/dL (8.4-10.2); Carbon Dioxide 24 mmol/L (22-29); Chloride 94 mmol/L (96-108); Cholesterol 145 mg/dL; Estimated Glomerular Filt Rate 21; Glucose Random 115 mg/dL (60-115); HDL Cholesterol 35 mg/dL; Iron 66 mcg/dL (30-160); LDL Cholesterol Calculated 68 mg/dl; Magnesium 1.7 mg/dL (1.6-2.6); Percent Iron Saturation 17 % (15-50); Phosphorus 3.8 mg/dL (2.7-4.5); Potassium 4.4 mmol/L (3.3-5.1); Sodium 132 mmol/L (135-145); Total Iron Binding Capacity 384 mcg/dL (228-428); Total Protein 7.4 g/dL (6.5-8.0); Triglycerides 210 mg/dL; Unsaturated Iron Binding 318 ug/dL
[2022-03-19 18:15] LABS: Thyroid Stimulating Hormone 2.46 uIU/mL (0.32-4.0)
[2022-03-20 05:37] LABS: Estimated Average Glucose 151 mg/dL; Hemoglobin A1c % 6.9 %
[2022-03-20 12:26] LABS: Calcium (PTHI) 10.7 mg/dL (8.6-10.4); PTHI 7 pg/mL (16-77)
== END 2022-03-19 16:18 | disposition home or self-care (01) ==
LOC: HO.LAB 16:17
PROVIDERS: Internal Medicine Nephrology; Absent Provider Nurse Practitioner Family; PCP Nurse Practitioner Family; Visit Provider Internal Medicine Endocrinology, Diabetes & Metabolism
DX: N25.89 Other disorders resulting from impaired renal tubular function (principal); E83.41 Hypermagnesemia; I12.9 Hypertensive chronic kidney disease with stage 1 through stage 4 chronic kidney disease, or unspecified chronic kidney disease; N18.32 Chronic kidney disease, stage 3b
CPT/HCPCS: 36415; 80053; 80061; 83036; 83540; 83735; 83970; 84100; 84443; 85025

== ENCOUNTER 2022-04-17 15:38 | Outpatient (REF) | payer MEDICARE, OTHER, BC, SELFPAY | END 2022-04-17 15:39 | disposition home or self-care (01) | LOC: HO.LNP 15:38 | PROVIDERS: Visit Provider Internal Medicine Gastroenterology | DX: Z13.89 Encounter for screening for other disorder (principal) | CPT/HCPCS: 87507 ==

== ENCOUNTER 2022-04-18 13:26 | Outpatient (REF) | payer MEDICARE, OTHER, BC, SELFPAY ==
[2022-04-18 13:35] LABS: Appearance Urine Clear; Color Urine Yellow; Glucose Urine UA Negative (Negative); Leukocyte Esterase Urine Large (3+) (Negative); Nitrite Urine Negative (Negative); PH 6.5 (5.0-9.0); Specific Gravity - Urine <= 1.005 (1.005-1.025); UMIC TRIGGER UACC YES; Urine Blood Negative (Negative); Urine Ketones Negative (Negative); Urine Protein Negative (Neg-Trace)
[2022-04-18 13:42] LABS: Bacteria Urine 4+ (None Seen); Hyaline Casts Urine 0-2 /LPF (0-2); RBC Urine 0-2 /HPF (0-2); Squamous Epithelial Cell Urine 0-2 /HPF (0-2); UACC Culture Trigger YES; WBC Urine 21-50 /HPF (0-5)
[2022-04-18 14:13] LABS: Creatinine Urine 35.56 mg/dL; Microalbum/Creatinine Ratio Ur 25.3 ug/mg cr
== END 2022-04-18 13:27 | disposition home or self-care (01) ==
LOC: HO.LNP 13:26
PROVIDERS: Visit Provider Nurse Practitioner Family
DX: E11.42 Type 2 diabetes mellitus with diabetic polyneuropathy (principal)
CPT/HCPCS: 81001; 82043; 87086; 87088; 87186

== ENCOUNTER 2022-04-21 17:15 | Outpatient (REF) | payer MEDICARE, OTHER, BC, SELFPAY ==
[2022-04-22 10:23] LABS: Adenovirus F 40/41 Not Detected (Not Detect.); Astrovirus Not Detected (Not Detect.); Campylobacter Not Detected (Not Detect.); Cryptosporidium Not Detected (Not Detect.); Cyclospora cayetanensis Not Detected (Not Detect.); E. coli EAEC Not Detected (Not Detect.); E. coli EPEC Not Detected (Not Detect.); E. coli ETEC Not Detected (Not Detect.); E. coli STEC Not Detected (Not Detect.); Entamoeba histolytica Not Detected (Not Detect.); Giardia lamblia Not Detected (Not Detect.); Norovirus GI/GII Not Detected (Not Detect.); Plesiomonas shigelloides Not Detected (Not Detect.); Rotavirus A Not Detected (Not Detect.); Salmonella Not Detected (Not Detect.); Sapovirus Not Detected (Not Detect.); Shigella sp./EIEC Not Detected (Not Detect.); Vibrio Not Detected (Not Detect.); Vibrio Cholerae Not Detected (Not Detect.); Yersinia enterocolitica Not Detected (Not Detect.)
== END 2022-04-21 17:16 | disposition home or self-care (01) ==
LOC: HO.LNP 17:15
PROVIDERS: Visit Provider Internal Medicine Gastroenterology
DX: R19.7 Diarrhea, unspecified (principal); K58.2 Mixed irritable bowel syndrome; Z86.19 Personal history of other infectious and parasitic diseases
CPT/HCPCS: 87507

== ENCOUNTER → 2022-05-16 11:35 | Outpatient (BNVA) | payer MEDICARE, BC, SELFPAY | PROVIDERS: PCP Nurse Practitioner Family; Visit Provider Internal Medicine Endocrinology, Diabetes & Metabolism | DX: M81.0 Age-related osteoporosis without current pathological fracture (principal) | CPT/HCPCS: 36415; 80048; 82306; 84100; 84165; 84439; 99212 ==

== ENCOUNTER 2022-05-16 12:41 | Outpatient (REF) | payer MEDICARE, OTHER, BC, SELFPAY ==
[2022-05-16 14:47] LABS: Anion Gap 22 (12-20); Blood Urea Nitrogen 21 mg/dL (9-16); Calcium 10.8 mg/dL (8.4-10.2); Carbon Dioxide 21 mmol/L (22-29); Chloride 95 mmol/L (96-108); Estimated Glomerular Filt Rate 20; Glucose Random 114 mg/dL (60-115); Potassium 4.3 mmol/L (3.3-5.1); Sodium 134 mmol/L (135-145)
[2022-05-16 15:11] LABS: Free T4 (Free Thyroxine) 1.15 ng/dL (0.71-1.85)
[2022-05-19 11:27] LABS: Prot Elec - Albumin 3.7 g/dL (3.8-4.8); Prot Elec - Alpha1 0.4 g/dL (0.2-0.3); Prot Elec - Alpha2 1.2 g/dL (0.5-0.9); Prot Elec - Beta 1 0.5 g/dL (0.4-0.6); Prot Elec - Beta 2 0.6 g/dL (0.2-0.5); Prot Elec - Gamma 1.3 g/dL (0.8-1.7); Prot Elec - Total Protein 7.7 g/dL (6.1-8.1)
== END 2022-05-16 12:42 | disposition home or self-care (01) ==
LOC: HO.10HDL 12:41
PROVIDERS: Visit Provider Internal Medicine Endocrinology, Diabetes & Metabolism
DX: Z13.89 Encounter for screening for other disorder (principal)
CPT/HCPCS: 36415; 80048; 82306; 84100; 84165; 84439

== ENCOUNTER 2022-05-26 10:23 | Outpatient (REF) | payer MEDICARE, BC, OTHER, SELFPAY ==
--- NOTE | ~2022-05-26 | US_ITS ---
EXAMINATION: US ABDOMEN COMPLETE CLINICAL INFORMATION: Unspecified abdominal pain. COMPARISON: Ultrasound abdomen complete 01/10/2015. CT abdomen and pelvis with contrast 05/10/2014. TECHNIQUE: Real-time imaging of the abdominal viscera. Technically limited study secondary to patient's immobility. FINDINGS: PANCREAS: Not well visualized. ABDOMINAL AORTA: The proximal, mid, and distal segments are normal in caliber. INFERIOR VENA CAVA: Visualized portions are normal. LIVER: Liver echotexture is increased. The liver is normal in size and contour. There is a 1.2 x 1 x 0.9 cm slightly complex cyst in the left lobe with single thin septation. There is no intrahepatic biliary duct dilatation seen. GALLBLADDER: The gallbladder is normal in size. No gallstones are seen. The gallbladder wall may be minimally thickened measuring between 0.3 and 0.4 cm. No gallbladder wall edema or pericholecystic fluid. COMMON BILE DUCT: Normal in caliber measuring 0.3 cm in diameter. RIGHT KIDNEY: There is increased renal cortical echogenicity and renal cortical thinning. No hydronephrosis. No renal calculi or focal parenchymal lesions. The kidney measures 9.1 cm in maximum dimension. LEFT KIDNEY: There is increased renal cortical echogenicity and renal cortical thinning. No hydronephrosis. No renal calculi or focal parenchymal lesions. The kidney measures 9.7 cm in maximum dimension. SPLEEN: Normal. The spleen measures 11.7 cm in maximum dimension. FREE FLUID: None. US/US abdomen complete IMPRESSION: Limited exam. Slightly echogenic liver. Small liver cyst in the left lobe. Slightly thickened gallbladder wall. No gallstones seen. Evidence of medical renal disease with bilateral renal cortical thinning and increased echogenicity.
== END 2022-05-26 10:24 | disposition home or self-care (01) ==
LOC: HO.HMGCX 10:23
PROVIDERS: PCP Nurse Practitioner Family; Visit Provider Nurse Practitioner Family
DX: R10.9 Unspecified abdominal pain (principal)
CPT/HCPCS: 76700

== ENCOUNTER 2022-07-30 13:25 | Outpatient (REF) | payer MEDICARE, BC, OTHER, MEDICAID, SELFPAY ==
--- NOTE | 2022-07-31 08:53 | MHC.AU.MED ---
Medical Clearance for Hearing Instrumentation Date: 07/31/22 Patient Name: Wanda Blum Date of : 1945 Referring Provider: Mitul Garcia [facility] We have seen your patient on 07/30/22 and have determined that they are a candidate for amplification (See accompanying report). Specifically, they would benefit from: Hearing aid use in both ears There is a statute that addresses Medical Evaluation Requirements prior to fitting a patient with a hearing aid. According to [place] statute 265 CMR:6.03(1), (a) General. Except as provided in 265 CMR 6.03(1)(b), a llama farmer shall not sell a hearing aid unless the prospective user has presented to the llama farmer a written statement signed by a licensed physician that states that the patient's hearing loss has been medically evaluated and the patient may be considered a candidate for a hearing aid. The medical evaluation must have taken place within the preceding six months. Please note: Due to the [place] Statute referenced above, we cannot accept a signature other than that of a licensed physician. REAL ESTATE PHOTOGRAPHER and PA signatures cannot be accepted. I am in agreement with the above recommendation. There is no medical contraindication for hearing instrumentation. Physician Signature Date Physician Name (Printed)
== END 2022-07-30 13:26 | disposition home or self-care (01) ==
LOC: HO.SH 13:25
PROVIDERS: Visit Provider Nurse Practitioner Family
DX: H91.90 Unspecified hearing loss, unspecified ear (principal)
CPT/HCPCS: 92557; 92567

== ENCOUNTER 2022-08-18 22:49 | Inpatient (IN) | payer MEDICARE, BC, OTHER, MEDICAID, SELFPAY ==
--- NOTE | ~2022-08-18 | XR_ITS ---
EXAMINATION: XR CHEST CLINICAL INFORMATION: Fever COMPARISON: 03/19/2021 TECHNIQUE: Frontal view of the chest was obtained. FINDINGS: Lung volumes are symmetric. Retrocardiac left basilar opacity is suspected to be due to previously identified large hiatal hernia. Right lung is well-aerated. No evidence of pneumothorax or significant pleural effusion. No overt pulmonary edema. Cardiac silhouette appears at the upper limits of normal in size. Partially visualized left shoulder arthroplasty hardware. Chronic appearing degenerative change of the right shoulder. XR/XR chest 1V IMPRESSION: Retrocardiac left basilar opacity, suspected to be due to previously identified large hiatal hernia.
[2022-08-18 23:08] VITALS: BP 134/58; BP 150/80; PULSE 104; PULSE 96; RESP 22; TEMP 39.6; O2SAT 93; BMI 28.0
--- NOTE | 2022-08-18 23:26 | ED_ITS ---
HPI - General Adult General Chief complaint: Altered Mental Status Stated complaint: shivers Time Seen by Provider: 08/18/22 22:56 Source: EMS Mode of arrival: EMS Limitations: altered mental status History of Present Illness HPI narrative: Patient comes to the emergency room via ambulance from home. According to EMS, the family reported that the patient must been shivering all day and more confused than usual. The family reported that the patient is prone to urinary tract infections. Patient took couple of doses of Augmentin prior to a dental procedure which she had yesterday. Patient is alert only to person, unable to give any further history. Patient's is at bedside, states that the patient has gradually become more confused over the last 2 months. The family suspected that the patient may be showing signs of dementia. Related Data Home Medications Medication Instructions Recorded Confirmed blood sugar diagnostic #10 ea 05/17/20 05/27/22 lancets 33 gauge #100 ea 05/17/20 05/27/22 magnesium oxide 400 mg (241.3 mg 400 mg PO BID 05/22/20 05/27/22 magnesium) tablet duloxetine 20 mg capsule,delayed 20 mg PO DAILY 05/08/21 05/27/22 release loperamide 2 mg capsule 4 mg PO BID 01/28/22 05/27/22 Previous Rx's Medication Instructions Recorded albuterol sulfate 90 mcg/actuation 1 puff inhalation Q6H PRN 03/29/21 aerosol inhaler bronchospasm 30 days #8.5 grams tramadol 50 mg tablet 50 mg PO BID PRN pain 7 days #14 08/05/21 tabs afo right foot #1 ea 09/18/21 Diabetic shoes & 3 pair inserts #1 ea 12/05/21 dulaglutide 3 mg/0.5 mL 3 mg (0.5 mL) subcut QWEEK 28 days 12/05/21 subcutaneous [facility]6 [facility] metoprolol succinate 25 mg 25 mg PO BID #180 tabs 02/21/22 tablet,extended release 24 hr pravastatin 20 mg tablet 20 mg PO DAILY #90 tabs 02/21/22 diphenoxylate-atropine 2.5 1 tab PO BID PRN diarrhea 15 days 02/24/22 mg-0.025 mg tablet #30 tabs cholecalciferol (vitamin D3) 50 50 mcg PO DAILY #30 caps 03/20/22 mcg (2,000 unit) capsule paroxetine HCl 40 mg tablet 40 mg PO QAM #90 tabs 03/25/22 fosfomycin tromethamine 3 gram 1 packet PO Q OTHER DAY 3 doses #2 04/23/22 oral packet ea loperamide 2 mg tablet 2 mg PO Q6H PRN loose stool 30 04/28/22 days #120 tabs pregabalin 100 mg capsule 100 mg PO TID 90 days #270 caps 06/15/22 omeprazole 40 mg capsule,delayed 40 mg PO BID #180 caps 06/16/22 release dflobsagpj-pmxecdwkcnqiy-nbkevhej 1 tab PO ONCE PRN headache 15 days 06/25/22 50 mg-325 mg-40 mg tablet #15 tabs blood sugar diagnostic (Accu-Chek #100 ea 06/29/22 Guide test strips) calcium citrate 500 mg PO BID #360 tabs 06/30/22 incontinence pad, liner, disp #125 ea 07/08/22 spironolactone 50 mg tablet 50 mg PO BID #60 tabs 07/16/22 lancets (Accu-Chek Softclix #100 ea 08/04/22 Lancets) diclofenac sodium 1 % topical gel 4 g topical QID #100 grams 08/07/22 (Arthritis Pain (diclofenac)) Allergies Allergy/AdvReac Type Severity Reaction Status Date / Time sulfamethoxazole Allergy Unknown UNKNOWN Verified 06/17/22 11:25 [From BACTRIM] trimethoprim [From BACTRIM] Allergy Unknown UNKNOWN Verified 06/17/22 11:25 PLASTIC TAPE Allergy Intermediate RASH Uncoded 06/17/22 11:25 Adhesive Bandages Allergy Unknown bilsters Uncoded 06/17/22 11:25 From Dilantin Allergy Unknown Hives Uncoded 06/17/22 11:25 Review of Systems Review of Systems: Yes Unobtainable due to mental condition and Unobtainable due to mental status PMFSH Past Medical History Medical History Adult BMI 30.0-30.9 kg/sq m Age-related osteoporosis without current pathological fracture Anemia B12 deficiency Breast pain, left Celiac disease Chronic kidney disease, stage 3 CKD (chronic kidney disease) Decreased pedal pulses Diabetes mellitus with complication Dyslipidemia Essential hypertension GERD (gastroesophageal reflux disease) Gitelman disease Gout Hiatal hernia IBS (irritable bowel syndrome) Neuropathy Obesity (BMI 30-39.9) On beta jody at home GOPAL on CPAP Osteoarthritis Proteinuria Restrictive lung disease Retinopathy Right rotator cuff tear Seizures 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 Mother Cancer Diabetes Daughter Substance use disorder Mental health disorder Social History Social History Household Members: Spouse Household Members Other:: 2 daughter and their children Housing: House Are you a primary career development coordinator to a significant other at home: No Do you presently have visiting nurse or other home services: No Alcohol intake: current Patient Tobacco Use Status: Former Tobacco user Tobacco use type: Cigarette Years Smoked: 1964 e-Cigarette/Vaping Use: Never Used Second Hand Smoke Exposure: Yes Advance Directives: No Current occupational status: retired Cognitive needs: No Hearing needs: No Vision needs: Yes Physical Exam ED Vital Signs: Vital Signs - 24 hr 08/18/22 23:08 08/19/22 00:04 08/19/22 01:50 Temperature 103.3 F H 105.3 F H 103.3 F H Pulse Rate 104 H 82 Respiratory Rate 22 H 15 Blood Pressure 134/58 L 91/40 L Pulse Oximetry 93 92 Oxygen Delivery Method Room Air Room Air 08/19/22 02:01 Temperature 103.1 F H Pulse Rate 79 Respiratory Rate 18 Blood Pressure 135/110 H Pulse Oximetry 91 L Oxygen Delivery Method Room Air BMI result Body Mass Index 28.0 Const Other: Appearance: Alert. Oriented X1. No acute distress. Very confused, talking but not making any sense Eyes: Pupils equal, round and reactive to light. ENT: Pharynx normal. Neck: Normal inspection. Neck supple. No lymph nodes noted. No crepitus CVS: Normal heart rate and rhythm. Pulses normal. Normal S1 and S2 Respiratory: No respiratory distress. Breath sounds normal. No Wheezing. No rales Abdomen: Soft and nontender. No rigidity. No distention. Skin: Warm to touch Extremities: No lower extremity edema. No Lacerations. No Rash Neuro: Oriented X1. No motor deficit. No sensory deficit. Moving all extremities. No slurred speech. CN 2 through 12 grossly intact Psych: calm, cooperative, very confused Course Course Course Narrative: -all of patient's labs and imaging pending. So far we note patient's temperature is 103.3 degrees oral. Oxygen saturation 93% on room air, blood pressure 134/53, heart rate 104. -patient known to have recurrent UTIs per family. Patient is being empirically treated with IV fluids and ceftriaxone IV. -00:15, I was informed by the patient's nurse that the patient has a rectal temperature of 105.3 degrees. Patient is on a cooling blanket at this time. Blood pressure remains stable, still a bit tachycardic, heart rate 104. Patient is being given fluids based on an ideal weight of 68 kg, 2.5 L given, patient has already had the 1st dose of ceftriaxone. Urine and chest x-ray are still pending. -patient is still confused but she seems to be reasoning a little bit better than when she initially came in Troponin is elevated, 1018, EKG does not show any acute abnormalities. We do not have previous troponin for comparison. Patient being started on heparin Medications Administered Discontinued Medications Generic Name Dose Route Start Last Admin Trade Name Freq PRN Reason Stop Dose Admin Acetaminophen 650 mg 08/19/22 00:19 08/19/22 00:36 Acetaminophen Supp 650 Mg Supp.Rect OK 08/19/22 00:20 650 mg ONCE ONE Administration Sodium Chloride 1,000 mls @ 999 mls/hr 08/18/22 23:05 08/19/22 00:16 Ns IVCONT 08/19/22 00:05 999 mls/hr .Q1H1M ONE Administration Ceftriaxone Sodium 1 gm/ 50 mls @ 100 mls/hr 08/18/22 23:30 08/19/22 00:26 Sodium Chloride IV 08/18/22 23:59 100 mls/hr ONCE ONE Administration Medical Decision Making Medical Decision Making MDM Narrative: -chest x-ray shows an opacity, possibly pneumonia. Patient already received ceftriaxone, I am adding azithromycin at this time. -patient urinated in her depends, we were able to get urine. Urine is still pending. Patient is already being covered with ceftriaxone. -patient remains pain-free, no chest pain. Patient has been started on heparin. EKG shows normal sinus rhythm, right bundle-branch block, heart rate 89, no ST segment depressions or elevations -discussed the patient with Dr. Cary, patient being admitted Differential Diagnosis Differential Diagnoses: The differential diagnosis associated with the presentation includes (Pneumonia, UTI, COVID, influenza) Admission/Observation Consideration of admission/observation: Escalation of care including admission/observation considered Lab Data 08/18/22 23:24 08/18/22 23:24 Labs: Lab Results 08/18/22 08/18/22 08/18/22 Range/Units 23:24 23:24 23:24 WBC 9.9 (4.8-10.8) X10*3/uL RBC 4.40 (4.20-5.50) X10*6/uL Hgb 12.4 (12.0-16.0) g/dl Hct 37.1 (37.0-47.0) % MCV 84.3 (80.0-98.0) fL MCH 28.2 (27.0-33.0) pg MCHC 33.4 (31.0-35.0) g/dl RDW 12.8 (11.0-16.0) % Plt Count 305 (160-400) X10*3/uL MPV 9.7 (9.4-12.3) fL Immature Gran % (Auto) 0.4 (0.0-0.4) % Neut % (Auto) 97.4 H (45-73) % Lymph % (Auto) 1.8 L (20-40) % [place] % (Auto) 0.1 L (2-11) % Eos % (Auto) 0.1 (0-4) % Baso % (Auto) 0.2 (0-2) % Lymph # (Auto) 0.2 L (1.2-4.9) X10*3/uL [place] # (Auto) 0.0 L (0.1-1.2) X10*3/uL Eos # (Auto) 0.0 (0.0-0.4) X10*3/uL Baso # (Auto) 0.0 (0.0-0.2) X10*3/uL Abs Immat Gran (auto) 0.04 H (0.00-0.03) X10*3/uL Absolute Neuts (auto) 9.6 H (2.0-8.3) x10*3/uL Absolute Nucleated RBC 0.000 (0.0-0.012) X10*3/uL Nucleated RBC % (auto) 0.0 (0.0-0.2) /100WBC Smear Tech's Comments VERIFIED PT 12.5 (10.0-13.1) SEC INR 1.1 (0.9-1.1) APTT 28.8 (26.0-36.4) SEC aPTT Heparin Protocol VBG pH (7.32-7.43) VBG pCO2 mmHg VBG pO2 mmHg VBG HCO3 (22-26) mmol/L VBG O2 Saturation % VBG Base Excess mmol/L Sodium 135 (135-145) mmol/L Potassium 4.3 (3.3-5.1) mmol/L Chloride 96 (96-108) mmol/L Carbon Dioxide 23 (22-29) mmol/L Anion Gap 20 (12-20) BUN 27 H (9-16) mg/dL Creatinine 2.22 H (0.5-1.4) mg/dL Estim Creat Clear Calc 25.6 Estimated GFR 21 POC Glucose (60-115) mg/dL Random Glucose 114 (60-115) mg/dL Lactic Acid (0.5-2.0) mmol/L Calcium 10.0 D (8.4-10.2) mg/dL Total Bilirubin 0.3 (0.0-1.0) mg/dL Direct Bilirubin < 0.2 (0.0-0.5) mg/dL AST 25 (5-31) U/L ALT 10 (0-31) U/L Alkaline Phosphatase 82 (39-117) U/L Ammonia (13-55) umol/L Troponin I High Sens (<3.5-17.0) ng/L B-Natriuretic Peptide (<100) pg/mL Total Protein 8.4 H (6.5-8.0) g/dL Albumin 3.9 (3.5-5.0) g/dL COVID-19 (SARA) (Negative) COVID-19 Clin Com Influenza Type A (CARLY) (Negative) Influenza Type B (CARLY) (Negative) Influenza A & B Note 08/18/22 08/18/22 08/18/22 Range/Units 23:24 23:24 23:24 WBC (4.8-10.8) X10*3/uL RBC (4.20-5.50) X10*6/uL Hgb (12.0-16.0) g/dl Hct (37.0-47.0) % MCV (80.0-98.0) fL MCH (27.0-33.0) pg MCHC (31.0-35.0) g/dl RDW (11.0-16.0) % Plt Count (160-400) X10*3/uL MPV (9.4-12.3) fL Immature Gran % (Auto) (0.0-0.4) % Neut % (Auto) (45-73) % Lymph % (Auto) (20-40) % [place] % (Auto) (2-11) % Eos % (Auto) (0-4) % Baso % (Auto) (0-2) % Lymph # (Auto) (1.2-4.9) X10*3/uL [place] # (Auto) (0.1-1.2) X10*3/uL Eos # (Auto) (0.0-0.4) X10*3/uL Baso # (Auto) (0.0-0.2) X10*3/uL Abs Immat Gran (auto) (0.00-0.03) X10*3/uL Absolute Neuts (auto) (2.0-8.3) x10*3/uL Absolute Nucleated RBC (0.0-0.012) X10*3/uL Nucleated RBC % (auto) (0.0-0.2) /100WBC Smear Tech's Comments PT (10.0-13.1) SEC INR (0.9-1.1) APTT (26.0-36.4) SEC aPTT Heparin Protocol VBG pH (7.32-7.43) VBG pCO2 mmHg VBG pO2 mmHg VBG HCO3 (22-26) mmol/L VBG O2 Saturation % VBG Base Excess mmol/L Sodium (135-145) mmol/L Potassium (3.3-5.1) mmol/L Chloride (96-108) mmol/L Carbon Dioxide (22-29) mmol/L Anion Gap (12-20) BUN (9-16) mg/dL Creatinine (0.5-1.4) mg/dL Estim Creat Clear Calc Estimated GFR POC Glucose (60-115) mg/dL Random Glucose (60-115) mg/dL Lactic Acid 3.5 H* (0.5-2.0) mmol/L Calcium (8.4-10.2) mg/dL Total Bilirubin (0.0-1.0) mg/dL Direct Bilirubin (0.0-0.5) mg/dL AST (5-31) U/L ALT (0-31) U/L Alkaline Phosphatase (39-117) U/L Ammonia 31 (13-55) umol/L Troponin I High Sens 1018.6 H* (<3.5-17.0) ng/L B-Natriuretic Peptide (<100) pg/mL Total Protein (6.5-8.0) g/dL Albumin (3.5-5.0) g/dL COVID-19 (SARA) (Negative) COVID-19 Clin Com Influenza Type A (CARLY) (Negative) Influenza Type B (CARLY) (Negative) Influenza A & B Note 08/18/22 08/18/22 08/18/22 Range/Units 23:24 23:24 23:24 WBC (4.8-10.8) X10*3/uL RBC (4.20-5.50) X10*6/uL Hgb (12.0-16.0) g/dl Hct (37.0-47.0) % MCV (80.0-98.0) fL MCH (27.0-33.0) pg MCHC (31.0-35.0) g/dl RDW (11.0-16.0) % Plt Count (160-400) X10*3/uL MPV (9.4-12.3) fL Immature Gran % (Auto) (0.0-0.4) % Neut % (Auto) (45-73) % Lymph % (Auto) (20-40) % [place] % (Auto) (2-11) % Eos % (Auto) (0-4) % Baso % (Auto) (0-2) % Lymph # (Auto) (1.2-4.9) X10*3/uL [place] # (Auto) (0.1-1.2) X10*3/uL Eos # (Auto) (0.0-0.4) X10*3/uL Baso # (Auto) (0.0-0.2) X10*3/uL Abs Immat Gran (auto) (0.00-0.03) X10*3/uL Absolute Neuts (auto) (2.0-8.3) x10*3/uL Absolute Nucleated RBC (0.0-0.012) X10*3/uL Nucleated RBC % (auto) (0.0-0.2) /100WBC Smear Tech's Comments PT (10.0-13.1) SEC INR (0.9-1.1) APTT (26.0-36.4) SEC aPTT Heparin Protocol VBG pH (7.32-7.43) VBG pCO2 mmHg VBG pO2 mmHg VBG HCO3 (22-26) mmol/L VBG O2 Saturation % VBG Base Excess mmol/L Sodium (135-145) mmol/L Potassium (3.3-5.1) mmol/L Chloride (96-108) mmol/L Carbon Dioxide (22-29) mmol/L Anion Gap (12-20) BUN (9-16) mg/dL Creatinine (0.5-1.4) mg/dL Estim Creat Clear Calc Estimated GFR POC Glucose (60-115) mg/dL Random Glucose (60-115) mg/dL Lactic Acid (0.5-2.0) mmol/L Calcium (8.4-10.2) mg/dL Total Bilirubin (0.0-1.0) mg/dL Direct Bilirubin (0.0-0.5) mg/dL AST (5-31) U/L ALT (0-31) U/L Alkaline Phosphatase (39-117) U/L Ammonia (13-55) umol/L Troponin I High Sens (<3.5-17.0) ng/L B-Natriuretic Peptide 111 H (<100) pg/mL Total Protein (6.5-8.0) g/dL Albumin (3.5-5.0) g/dL COVID-19 (SARA) Negative (Negative) COVID-19 Clin Com See Note Influenza Type A (CARLY) Negative (Negative) Influenza Type B (CARLY) Negative (Negative) Influenza A & B Note See Note 08/19/22 08/19/22 08/19/22 Range/Units 00:52 00:57 01:52 WBC (4.8-10.8) X10*3/uL RBC (4.20-5.50) X10*6/uL Hgb (12.0-16.0) g/dl Hct (37.0-47.0) % MCV (80.0-98.0) fL MCH (27.0-33.0) pg MCHC (31.0-35.0) g/dl RDW (11.0-16.0) % Plt Count (160-400) X10*3/uL MPV (9.4-12.3) fL Immature Gran % (Auto) (0.0-0.4) % Neut % (Auto) (45-73) % Lymph % (Auto) (20-40) % [place] % (Auto) (2-11) % Eos % (Auto) (0-4) % Baso % (Auto) (0-2) % Lymph # (Auto) (1.2-4.9) X10*3/uL [place] # (Auto) (0.1-1.2) X10*3/uL Eos # (Auto) (0.0-0.4) X10*3/uL Baso # (Auto) (0.0-0.2) X10*3/uL Abs Immat Gran (auto) (0.00-0.03) X10*3/uL Absolute Neuts (auto) (2.0-8.3) x10*3/uL Absolute Nucleated RBC (0.0-0.012) X10*3/uL Nucleated RBC % (auto) (0.0-0.2) /100WBC Smear Tech's Comments PT (10.0-13.1) SEC INR (0.9-1.1) APTT (26.0-36.4) SEC aPTT Heparin Protocol Cancelled VBG pH 7.40 (7.32-7.43) VBG pCO2 38 mmHg VBG pO2 40 mmHg VBG HCO3 24 (22-26) mmol/L VBG O2 Saturation 59.0 % VBG Base Excess -0.3 mmol/L Sodium (135-145) mmol/L Potassium (3.3-5.1) mmol/L Chloride (96-108) mmol/L Carbon Dioxide (22-29) mmol/L Anion Gap (12-20) BUN (9-16) mg/dL Creatinine (0.5-1.4) mg/dL Estim Creat Clear Calc Estimated GFR POC Glucose 121 H (60-115) mg/dL Random Glucose (60-115) mg/dL Lactic Acid (0.5-2.0) mmol/L Calcium (8.4-10.2) mg/dL Total Bilirubin (0.0-1.0) mg/dL Direct Bilirubin (0.0-0.5) mg/dL AST (5-31) U/L ALT (0-31) U/L Alkaline Phosphatase (39-117) U/L Ammonia (13-55) umol/L Troponin I High Sens (<3.5-17.0) ng/L B-Natriuretic Peptide (<100) pg/mL Total Protein (6.5-8.0) g/dL Albumin (3.5-5.0) g/dL COVID-19 (SARA) (Negative) COVID-19 Clin Com Influenza Type A (CARLY) (Negative) Influenza Type B (CARLY) (Negative) Influenza A & B Note Critical Care Time Critical Care Time Critical Care Time: Yes Total Critical Care Time: 90 Attestation: I have personally provided critical care time. Time includes review of lab data, radiology results, discussion with consultants, and monitoring for potential decompensation. Intervention performed as documented. Discharge Plan Discharge Clinical Impression: Pneumonia, Non-ST elevation PR (NSTEMI) Patient Disposition: Admitted As Inpatient Prescriptions: No Action albuterol sulfate 90 mcg/actuation HFA aerosol inhaler 1 puff inhalation Q6H PRN (Reason: bronchospasm) 30 Days Qty: 8.5 4RF tramadol 50 mg tablet 50 mg PO BID PRN (Reason: pain) 7 Days Qty: 14 0RF (DME) afo right foot See Rx Instructions .Route .MEDSUPPLY Qty: 1 0RF Rx Instructions: wear daily metoprolol succinate 25 mg tablet extended release 24 hr 25 mg PO BID Qty: 180 3RF pravastatin 20 mg tablet 20 mg PO DAILY Qty: 90 3RF cholecalciferol (vitamin D3) 50 mcg (2,000 unit) capsule 50 mcg PO DAILY Qty: 30 4RF paroxetine HCl 40 mg tablet 40 mg PO QAM Qty: 90 3RF fosfomycin tromethamine 3 gram packet 1 packet PO Q OTHER DAY Qty: 2 0RF loperamide 2 mg tablet 2 mg PO Q6H PRN (Reason: loose stool) 30 Days Qty: 120 0RF pregabalin 100 mg capsule 100 mg PO TID 90 Days Qty: 270 0RF omeprazole 40 mg capsule,delayed release(DR/EC) 40 mg PO BID Qty: 180 0RF mtzhctyzrg-zwlvdtihimwkw-xifu 50-325-40 mg tablet 1 tab PO ONCE PRN (Reason: headache) 15 Days Qty: 15 0RF Rx Instructions: NOTE: can be addictive and can cause rebound Headaches (DME) Accu-Chek Guide test strips Strip See Rx Instructions .Route Qty: 100 11RF Rx Instructions: As directed three times a day calcium citrate 250 mg calcium tablet 500 mg PO BID Qty: 360 0RF (DME) incontinence pad, liner, disp Pad See Rx Instructions .Route Qty: 125 6RF Rx Instructions: daily use spironolactone 50 mg tablet 50 mg PO BID Qty: 60 2RF (DME) lancets [Accu-Chek Softclix Lancets] Misc See Rx Instructions .ROUTE .MEDSUPPLY Qty: 100 11RF Rx Instructions: As directed three times a day diclofenac sodium [Arthritis Pain (diclofenac)] 1 % gel 4 g topical QID Qty: 100 5RF Rx Instructions: apply to single knee, ankle, foot; for foot includes sole/toes/top of foot (DME) blood sugar diagnostic Strip See Rx Instructions Not Applicable .MEDSUPPLY Qty: 10 Rx Instructions: As directed (DME) lancets 33 gauge misc See Rx Instructions .ROUTE .MEDSUPPLY Qty: 100 Rx Instructions: As directed duloxetine 20 mg capsule,delayed release(DR/EC) 20 mg PO DAILY diphenoxylate-atropine 2.5-0.025 mg tablet 1 tab PO BID PRN (Reason: diarrhea) 15 Days Qty: 30 0RF magnesium oxide 400 mg (241.3 mg magnesium) tablet 400 mg PO BID Trulicity 3 mg/0.5 mL pen injector 3 mg subcut QWEEK 28 Days Qty: 6 1RF (DME) Diabetic shoes & 3 pair inserts Diabetic shoes & 3 pair insert kit See Rx Instructions .ROUTE .MEDSUPPLY Qty: 1 0RF Rx Instructions: as directed loperamide 2 mg capsule 4 mg PO BID
[2022-08-18 23:39] LABS: Basophils Percent Auto 0.2 % (0-2); Eosinophils Percent Auto 0.1 % (0-4); Hematocrit 37.1 % (37.0-47.0); Hemoglobin 12.4 g/dl (12.0-16.0); Imm Gran Abs Auto 0.04 X10*3/uL (0.00-0.03); Imm Gran Pct Auto 0.4 % (0.0-0.4); Lymphocytes Absolute Auto 0.2 X10*3/uL (1.2-4.9); Lymphocytes Percent Auto 1.8 % (20-40); MANUAL DIFF FLAG SCAN; Mean Corpuscular HGB Conc 33.4 g/dl (31.0-35.0); Mean Corpuscular Hemoglobin 28.2 pg (27.0-33.0); Mean Corpuscular Volume 84.3 fL (80.0-98.0); Mean Platelet Volume 9.7 fL (9.4-12.3); Monocytes Percent Auto 0.1 % (2-11); Neutrophils Absolute Auto 9.6 x10*3/uL (2.0-8.3); Neutrophils Percent Auto 97.4 % (45-73); Platelet Count 305 X10*3/uL (160-400); Red Cell Distribution Width 12.8 % (11.0-16.0); SCAN SMEAR FLAG 1; White Blood Count 9.9 X10*3/uL (4.8-10.8)
[2022-08-18 23:46] LABS: INTERNATIONAL NORM RATIO 1.1 (0.9-1.1); Prothrombin Time 12.5 SEC (10.0-13.1)
[2022-08-18 23:47] LABS: Ammonia 31 umol/L (13-55)
[2022-08-18 23:52] LABS: SLIDE REVIEW VERIFIED
[2022-08-18 23:56] LABS: Alanine Aminotransferase 10 U/L (0-31); Albumin Level 3.9 g/dL (3.5-5.0); Alkaline Phosphatase 82 U/L (39-117); Anion Gap 20 (12-20); Aspartate Amino Transferase 25 U/L (5-31); Bilirubin Direct < 0.2 mg/dL (0.0-0.5); Bilirubin Total 0.3 mg/dL (0.0-1.0); Blood Urea Nitrogen 27 mg/dL (9-16); COVID-19 Test Negative (Negative); Carbon Dioxide 23 mmol/L (22-29); Chloride 96 mmol/L (96-108); Creatinine Clr Calc Pharmacy 25.6; Estimated Glomerular Filt Rate 21; Glucose Random 114 mg/dL (60-115); IDNOW Serial# 16C4AD1C; IDNOW Serial# BCCEAD1C; Influenza A Negative (Negative); Influenza B2 Negative (Negative); Potassium 4.3 mmol/L (3.3-5.1); Sodium 135 mmol/L (135-145); Total Protein 8.4 g/dL (6.5-8.0)
[2022-08-18 23:59] LABS: B Type Natriuretic Peptide 111 pg/mL (<100)
[2022-08-19] VITALS (20 sets, daily range): BP systolic 73–144; BP diastolic 26–110; PULSE 63–82; RESP 13–22; TEMP 36.3–40.7; O2SAT 89–99
--- NOTE | 2022-08-19 | ECG_ITS ---
Test Reason : elevated trop Blood Pressure : / mmHG Vent. Rate : 061 BPM Atrial Rate : 061 BPM P-R Int : 226 ms QRS Dur : 134 ms QT Int : 554 ms P-R-T Axes : 041 -77 -72 degrees QTc Int : 557 ms Sinus rhythm with 1st degree A-V block Right bundle branch block Left anterior fascicular block Bifascicular block T wave inversions - anterolateral ischemia Prolonged QTc Abnormal ECG When compared with ECG of 19-AUG-2022 00:25, Significant changes have occurred Referred By: Peyton Harrison Electronically Signed By:Michael Ledesma
[2022-08-19 00:05] LABS: Lactic Acid 3.5 mmol/L (0.5-2.0)
[2022-08-19 00:06] LABS: Troponin-I High Sensitivity 1018.6 ng/L (<3.5-17.0)
--- NOTE | 2022-08-19 00:11 | ECG_ITS ---
Test Reason : CP Blood Pressure : / mmHG Vent. Rate : 089 BPM Atrial Rate : 089 BPM P-R Int : 192 ms QRS Dur : 132 ms QT Int : 376 ms P-R-T Axes : 014 260 002 degrees QTc Int : 457 ms Poor data quality Normal sinus rhythm Right bundle branch block Possible Lateral infarct , age undetermined Abnormal ECG When compared with ECG of 13-NOV-2017 08:01, Left anterior fascicular block is no longer Present Borderline criteria for Lateral infarct are now Present Referred By: Ariella Elaine Electronically Signed By:Michael Ledesma
[2022-08-19] MEDS: 0.9 % Sodium Chloride 1,000 ML 999 ML IVCONT (00:16)
[2022-08-19] MEDS: cefTRIAXone sodium 1 GM in 0.9 % Sodium Chloride 50 ML IV (00:26)
[2022-08-19] MEDS: Acetaminophen Supp 650 MG SUPP.RECT PR (00:36)
--- NOTE | 2022-08-19 00:45 | PC.NURSE ---
Per Dr. Elaine cooling blanket applied and Tylenol rectal administered per NENO
[2022-08-19 01:04] LABS: Venous Blood Gas Refer to POC result
[2022-08-19 01:05] LABS: VBG Base Excess -0.3 mmol/L; VBG HCO3 24 mmol/L (22-26); VBG pCO2 38 mmHg; VBG pO2 40 mmHg
[2022-08-19 01:29] LABS: Partial Thromboplastin Time 28.8 SEC (26.0-36.4)
[2022-08-19 01:34] LABS: Reflex Lactate? Lactic Acid Added
[2022-08-19 01:57] LABS: Glucose, Whole Blood 121 mg/dL (60-115)
--- NOTE | 2022-08-19 01:57 | PC.NURSE ---
Pt alert concious speaking in sentences. Pt is diaphoretic denies chest pain. Pt became hypotensive. Rn attempting to start second IV access. Pt placed on trendelenburg position.
[2022-08-19 02:03] LABS: ~Lactic Acid-LAB USE ONLY 4.2 mmol/L (0.5-2.0)
[2022-08-19] MEDS: 0.9 % Sodium Chloride 1,500 ML 999 ML IVCONT (02:13)
--- NOTE | 2022-08-19 02:24 | PC.NURSE ---
hospitalist aware of pt VS. charge nurse is attempting to start an IV after other nurse unable to start second IV. Pt is a hard stick.
--- OUTSIDE RECORDS SUMMARY | 2022-08-19 02:27 | XMS_ITS ---
:1945 Author Organization [facility] Address [address] [place] [address] Care Team Providers Name Role Phone Hever Rc Unavailable Unavailable PROBLEMS Type Condition ICD9-CM [id number] Onset Condition SNOMED Cod e Code Code Dates Status Problem Hypertension I10 Active 7394280 3 Problem Gastro-esophageal K21.9 Active 26 5076224 reflux disease without esophagitis Problem Colon cancer Z53.20 Active 0298408 5471299 screening declined Problem Gastroesophageal K21.9 Active reflux disease Problem Diarrhea, R19.7 Active 81560447 unspecified type Problem Irritable bowel K58.2 Active 1074 3008 syndrome with both constipation and diarrhea Problem Clostridioides A49.8 Active 54747 1008 difficile infection Problem Abnormal celiac R89.4 Active antibody panel ALLERGIES Substance Reaction Event Type Date Status Bactrim Unknown Drug Allergy Apr, Active plastic tape Unknown Non Drug Allergy Apr, Active Dilantin Unknown Drug Allergy Apr, Active ENCOUNTERS Encounter Location Date Diagnosis [place] [address] Apr, [facility] [address] [place] [address] [place] [address] Mar, Diarrhea , unspecified type [facility] [address] [place] R19.7 [address] [place] [address] Mar, Diarrhea , unspecified type [facility] [address] [place] R19.7 [address] [place] [address] Mar, [facility] [address] [place] [address] [facility] [address] 15 Feb, 2022 [facility] [address] [place] [address] [facility] [address] 16 Jun, 2021 [facility] [address] [place] [address] [facility] [address] [place] [address] 14 Jun, 2021 Gastroesophagea l reflux [place] [id number] disease K2 1.9 and Abnormal celiac antibody panel R89.4 [facility] [address] Jun, [facility] [address] [place] [address] [facility] [address] Jun, Gastro-e sophageal reflux [facility] [address] [place] disease wi thout esophagitis [address] K21.9 ; Abnormal celiac antibody panel R 89.4 and Colon cancer scr eening declined Z53.20 [facility] [address] Jul, Change i n bowel habits R19.4 [facility] [address] [place] ; Colon ca ncer screening [address] Z12.11 and Abnor mal celiac antibody panel R 89.4 [facility] [address] Jul, [facility] [address] [place] [address] [facility] [address] Jul, Diarrhea , unspecified type [facility] [address] [place] R19.7 [address] [facility] [address] Oct, [facility] [address] [place] [address] [facility] [address] Sep, [facility] [address] [place] [address] [facility] [address] Sep, Diarrhea , unspecified type [facility] [address] [place] R19.7 [address] [facility] [address] Sep, [facility] [address] [place] [address] [facility] [address] Sep, [facility] [address] [place] [address] [facility] [address] Sep, Clostrid ioides difficile [facility] [address] [place] infection A49.8 [address] [facility] [address] November, [facility] [address] [place] [address] [facility] [address] Aug, [facility] [address] [place] [address] [facility] [address] Aug, Gastro-e sophageal reflux [facility] [address] [place] disease wi thout esophagitis [address] K21.9 ; Hyperten george I10 and Irritable bowel syndrome with both consti pation and diarrhea K58.2 [facility] [address] Jun, [facility] [address] [place] [address] [facility] [address] May, [facility] [address] [place] [address] [facility] [address] Mar, Gastro-e sophageal reflux [facility] [address] [place] disease wi thout esophagitis [address] K21.9 and Irrita ble bowel syndrome with anisa th constipation and diarrhea K58.2 [facility] [address] Jul, [facility] [address] [place] [address] [facility] [address] Jul, [facility] [address] [place] [address] [facility] [address] November, Gastro-e sophageal reflux [facility] [address] [place] disease wi thout esophagitis [address] K21.9 ; Hyperten george I10 and Diarrhea, unspec ified type R19.7 [facility] [address] November, [facility] [address] [place] [address] [facility] [address] Jun, [facility] [address] [place] [address] [facility] [address] Dec, [facility] [address] [place] [address] [facility] [address] Dec, Esophage al reflux 530.81 and [facility] [address] [place] Change in bowel habits [address] 787.99 [facility] [address] Feb, Esophage al reflux 530.81 [facility] [address] [place] [address] [facility] [address] Oct, [facility] [address] [place] [address] [facility] [address] Oct, [facility] [address] [place] [address] [facility] [address] Oct, [facility] [address] [place] [address] [place] [address] Oct, Esophage al reflux 530.81 and [facility] [address] [place] Diarrhea 7 87.91 [address] [facility] [address] Apr, Coccyody eliza 724.79 and [facility] [address] [place] Rectal anneliese n 569.42 [address] [facility] [address] Mar, [facility] [address] [place] [address] [place] [address] Mar, [facility] [address] [place] [address] [place] [address] Mar, [facility] [address] [place] [address] [facility] [address] Jan, [facility] [address] [place] [address] [place] [address] Jan, Esophage al reflux 530.81 ; [facility] [address] [place] Abdominal distention 787.3 [address] and Coccyodynia 724.79 [facility] [address] Jul, [place] [phone] [facility] [address] Aug, [place] [id number] IMMUNIZATIONS Vaccine Route Administration Date Status Influenza Unknown Mar 20, 2021 Administered Influenza Unknown Apr 25, 2020 Administered Influenza Unknown Apr 19, 2019 Administered Influenza Unknown Mar 30, 2018 Administered Flu vaccine no Preserv 3 and > Unknown Jun 05, 2015 A dministered Flu vaccine no Preserv 3 and > Unknown Apr 04, 2014 A dministered SOCIAL HISTORY Never Assessed REASON FOR REFERRAL FUNCTIONAL STATUS PLAN OF CARE Activity Details Follow Up prn Reason: Future Appointment Provider Name:Rc coronado Jr, 2022-10-09 01:15:00 PM, [address], [address] , [place], [address], Pending Test OVA & PARASITES (O&P) Pending Test STOOL WBC Pending Test C DIFFICILE RFLX PCR Pending Test GI PANEL Pending Test STOOL WBC Pending Test OVA & PARASITES (O&P) Pending Test C DIFFICILE RFLX PCR Pending Test Stool Culture Pending Test CT PELVIS NO CONTRAST Future/Pending Procedure UPPER GI ENDOSCOPY [id number] VITAL SIGNS Weight 192 lbs 2022-04-10 Weight 202 lbs 2021-06-20 Weight 198 lbs 2020-07-30 Weight 200 lbs 2019-10-06 Weight 200 lbs 2018-09-03 Weight 211 lbs 2017-04-16 Weight 197 lbs 2015-11-21 Weight 196 lbs 2014-12-21 Weight 209 lbs 2013-10-19 Weight 196 lbs 2013-04-20 Weight 210 lbs 2013-01-19 Height 63 in 2022-04-10 Height 63 in 2021-06-20 Height 63 in 2020-07-30 Height 63 in 2019-10-06 Height 63 in 2018-09-03 Height 63 in 2017-04-16 Height 63 in 2015-11-21 Height 63 in 2014-12-21 Height N/A in 2013-10-19 Height N/A in 2013-04-20 Height 63 in 2013-01-19 BMI 34.01 kg/m2 2022-04-10 BMI 35.78 kg/m2 2021-06-20 BMI 35.07 kg/m2 2020-07-30 BMI 35.42 kg/m2 2019-10-06 BMI 35.42 kg/m2 2018-09-03 BMI 37.37 kg/m2 2017-04-16 BMI 34.89 kg/m2 2015-11-21 BMI 34.72 kg/m2 2014-12-21 BMI 37.02 kg/m2 2013-10-19 BMI 34.72 kg/m2 2013-04-20 BMI 37.20 kg/m2 2013-01-19 Heart Rate 68 /min 2018-09-03 Heart Rate 66 /min 2013-04-20 Heart Rate 64 /min 2013-01-19 Temperature 97.1 degrees Fahrenheit 2022-04-10 Temperature 97.4 degrees Fahrenheit 2021-06-20 Temperature 97.3 degrees Fahrenheit 2020-07-30 Blood pressure systolic 000 mm Hg 2022-04-10 Blood pressure diastolic 00 mm Hg 2022-04-10 MEDICATIONS Medication Instructions Dosage Frequency Start End Duration Statu s Date Date Trulicity 1.5 Subcutaneous as directed A ctive MG/0.5ML once a week Diphenoxylate-Atro TAKE 1 30 Activ e pine 0 TABLET BY MOUTH EVERY 6 HOURS NEEDED Omeprazole 20 MG Orally Once a 1 capsule 24h Active day Magnesium Oxide Orally daily 4-5 tablet 24h Active 400 MG Metoprolol Orally Once a 1 tablet 24h Active Succinate ER 25 MG day Myrbetriq Active PARoxetine HCl 40 Orally Once a 1 tablet in 24h Active MG day the morning Pregabalin 100 MG 90 Active Tgdncajcgl-DFIJ-Di Activ e ffeine traMADol HCl Active Vitamin D3 Active Calcium Citrate Active Spironolactone 50 Orally Twice a 1 tablet 12h Active MG day Lyrica 50 MG Orally Three 1 capsule 8h Acti ve times a day Pravastatin Sodium Activ e DULoxetine HCl 20 16 Active MG Lomotil 2.5-0.025 Orally q 6hrs 1 po q6hrs Mar, da ys Active MG prn diarrhea prn 2021 diarrhea PROCEDURES Procedure Date Ordered Result Body Site TOBACCO NON-USER December 21, 2014 TOBACCO NON-USER November 21, 2015 DOC MEDS VERIFIED W/PT OR RE October 06, 2019 BP SCR PRFRM RCMDD DEFIND SCR INTVL December 21, 2014 COLORECTAL CA SCREEN DOC REV November 21, 2015 PREHTN/HTN BP DOC FU NOT PT NOT ELG November 21, 2015 DOC MEDS VERIFIED W/PT OR RE Sep 03, 2018 BP SCR PRFRM RCMDD DEFIND SCR INTVL Apr 16, 2017 COLORECTAL CA SCREEN DOC REV Apr 16, 2017 TOBACCO NON-USER Apr 16, 2017 DOC MEDS VERIFIED W/PT OR RE Apr 10, 2022 DOC MEDS VERIFIED W/PT OR RE Jul 30, 2020 PRES/ABSN URINE INCON ASSESS October 06, 2019 DOC RSN FOR NOT SCREEN/REC F/U HBP Jun 20, 2021 PRES/ABSN URINE INCON ASSESS Apr 16, 2017 DOC RSN FOR NOT SCREEN/REC F/U HBP Apr 10, 2022 COLORECTAL CA SCREEN DOC REV December 21, 2014 PRES/ABSN URINE INCON ASSESS December 21, 2014 PRES/ABSN URINE INCON ASSESS Jul 30, 2020 DOC MEDS VERIFIED W/PT OR RE Jun 20, 2021 BMI<30 AND >=22 CALC & DOCU Apr 16, 2017 PRES/ABSN URINE INCON ASSESS November 21, 2015 TOBACCO NON-USER Jul 30, 2020 UPPER GI ENDOSCOPY, BIOPSY Jul 02, 2021 TOBACCO NON-USER Sep 03, 2018 COLORECTAL CA SCREEN DOC REV October 06, 2019 BP NOT ASSESS PATIENT NOT ELIGIBLE Jul 30, 2020 PRES/ABSN URINE INCON ASSESS Sep 03, 2018 BMI >=30 CALCUATE W/FOLLOWUP December 21, 2014 DOC MEDS VERIFIED W/PT OR RE October 19, 2013 TOBACCO NON-USER October 06, 2019 BMI >=30 CALCUATE W/FOLLOWUP November 21, 2015 COLORECTAL CA SCREEN DOC REV Sep 03, 2018 BP SCR PRFRM RCMDD DEFIND SCR INTVL October 06, 2019 FLU IMMUNIZE ORDER/ADMIN December 21, 2014 DOC MEDS VERIFIED W/PT OR RE Apr 16, 2017 COLORECTAL CA SCREEN DOC REV Jul 30, 2020 PREHTN/HTN BP DOC INDCD F/U DOC Sep 03, 2018 FLU IMMUNIZE ORDER/ADMIN November 21, 2015 DOC MEDS VERIFIED W/PT OR RE December 21, 2014 Pt scrn tbco id as non user Jun 20, 2021 FLU IMMUNIZE ORDER/ADMIN Apr 16, 2017 Pt scrn tbco id as non user Apr 10, 2022 DOC MEDS VERIFIED W/PT OR RE November 21, 2015 RESULTS Name Result Date Reference Range GI PANEL 2022-04-21 Campylobacter Not Detected Not Detect. Plesiomonas shigelloides Not Detected Not Det ect. Salmonella Not Detected Not Detect. Vibrio Not Detected Not Detect. Vibrio Cholerae Not Detected Not Detect. Yersinia enterocolitica Not Detected Not Dete ct. E. coli EAEC Not Detected Not Detect. E. coli EPEC Not Detected Not Detect. E. coli ETEC Not Detected Not Detect. E. coli STEC Not Detected Not Detect. E. coli O157 Not applicable Not Detect. Shigella sp./EIEC Not Detected Not Detect. Cryptosporidium Not Detected Not Detect. Cyclospora cayetanensis Not Detected Not Dete ct. Entamoeba histolytica Not Detected Not Detect . Giardia lamblia Not Detected Not Detect. Adenovirus F 40/41 Not Detected Not Detect. Astrovirus Not Detected Not Detect. Norovirus GI/GII Not Detected Not Detect. Rotavirus A Not Detected Not Detect. Sapovirus Not Detected Not Detect. Glucose, Whole Blood 2021-07-02 Glucose, Whole Blood 139 60-115 Pathology 2021-07-02 STOOL WBC 2019-10-21 STOOL WBC NEGATIVE NEGATIVE OVA & PARASITES (O&P) 2019-10-21 OVA & PARASITES SEE NOTE () CULTURE, STOOL 2019-10-21 CULTURE, STOOL STOOL CULTURE RESULT CULTURE, STOOL No Salmonella, Shigella, Campylobacter isolated. CULTURE, STOOL No Sorbitol-neg E. coli isolated. CULTURE, STOOL Contact lab if other pathogens are suspected. CULTURE, STOOL C DIFFICILE RFLX PCR 2019-10-21 C DIFF GDH AG NEGATIVE NEGATIVE CDIFF TOXIN NEGATIVE NEGATIVE C DIFF INTERPRETATION SEE NOTE PELVIS WITHOUT CONTRAST 2013-04-27 REASON FOR VISIT Patient presents today for IBS,gerd, stool tests, speciman over filled . unable to test, patient presents today for diarrhea, Needs RX Lomotil, diarrhea - Dr. Kathleen patient, pathology, gerd, please lock note, Patient presents today for consultation, Patient presents today for COLON SCREENING, diarrhea , patient presents today for diarrhea, COVID Ques. , diarrhea, pt states , needs lomitil, r/f request lamotil, c-diff, Abdominal pain, 1 yr recall ov, Patient presents today for diarrhea, refill, Put on one year OV recall, Patient presents today for screening colonoscopy, patient presents today forfollow up office , Not feeling well, Needs a script for Lomotil , patient presents today for YEARLY C HECK, Wants lomotil refill, needs new script for lomotil, diarrhea, Having trouble with her bowels, refill, Put on one year OV recall, RECALL, REFILL REQUEST, refill, Put on one yr OV follow up, Pt's Ins, 6 mo f/u, rectal pressure, pt called, pressure in rectum, pressure in rectum Insurance Providers [facility] Health Member Patient Patient Patient Patient Patient Subscriber Subscriber Subscriber Group Insurance Plan Plan Plan Plan ID Relationship Address Phone Name Date of ID Name Date of No Type Insurance Insurance Insurance Coverage to Subscriber Address Phone Name Dates MEDICARE [phone] MEDICARE self RANJAN [id number] [place] [address] [place] [address] [facility] [address] MEDICAID [phone] MEDICAID self RANJAN [id number] OF [facility] [id number] OF [facility] PRE[address] [facility] [address] WPS/TRICAR [phone] WPS/TRICAR self RANJAN [id number] [id number] [facility] [address] BLUE [phone] BLUE self RANJAN [id number] [place] [id number] [place] OF [facility] [id number]
[2022-08-19] MEDS: Heparin Sodium,Porcine 5,000 UNIT/ML VIAL 3500 UNIT IVPUSH (02:54)
[2022-08-19] MEDS: Heparin Sodium,Porcine/1/2NS 25,000 UNIT/250 ML IV.SOLN 12.4 UNIT IVCONT (02:58)
[2022-08-19] MEDS: Azithromycin 500 MG in 0.9 % Sodium Chloride 250 ML 125 MG IV (03:01)
--- NOTE | 2022-08-19 03:11 | PC.NURSE ---
Pt complaing of 10/10 neck pain. Rn offered PRN tylenol pt refused.
--- NOTE | 2022-08-19 03:28 | PC.NURSE ---
Pt PÉREZ x3. Pt straight cathed to obtain urine sample. Urine was yellow about 250 cc with mild odor. Urine sample sent to lab.
[2022-08-19 03:42] LABS: Appearance Urine Clear; Color Urine Yellow; Glucose Urine UA Negative (Negative); Leukocyte Esterase Urine Moderate (2+) (Negative); Nitrite Urine Positive (Negative); UMIC TRIGGER UACC YES; Urine Blood Moderate (2+) (Negative); Urine Ketones Negative (Negative); Urine Protein 30 (1+) mg/dL (Neg-Trace)
--- NOTE | 2022-08-19 03:44 | PC.NURSE ---
hospitalist ordered morphine 1 mg IV. Message sent to hospitalist regarding bp 73/46 pulse 75.
[2022-08-19 03:46] LABS: Reflex Lactate? 2 Y
--- NOTE | 2022-08-19 03:48 | PC.NURSE ---
Per Dr. Cary RN instructed to hold morphine.
[2022-08-19 04:33] LABS: Bacteria Urine 4+ (None Seen); Hyaline Casts Urine 0-2 /LPF (0-2); UACC Culture Trigger YES
--- NOTE | 2022-08-19 05:04 | PC.NURSE ---
Spool Cleaner male unable to draw labs from patient x 3 attempts. RN send a message to Dr. Cary regarding permission to obtain labs from foot. Dr. Elaine aware pt continues hypotensive bp currently 96/36 Map 56. Plan pt to finish IVF per Dr. Araujo.
[2022-08-19 05:08] LABS: Anion Gap 17 (12-20); Blood Urea Nitrogen 30 mg/dL (9-16); Calcium 8.4 mg/dL (8.4-10.2); Carbon Dioxide 18 mmol/L (22-29); Chloride 103 mmol/L (96-108); Creatinine Clr Calc Pharmacy 23.3; Estimated Glomerular Filt Rate 19; Glucose Random 152 mg/dL (60-115); Potassium 4.1 mmol/L (3.3-5.1); Sodium 134 mmol/L (135-145)
[2022-08-19 05:38] LABS: Basophils Percent Auto 0.2 % (0-2); Eosinophils Absolute Auto 0.2 X10*3/uL (0.0-0.4); Eosinophils Percent Auto 0.8 % (0-4); Hematocrit 28.3 % (37.0-47.0); Hemoglobin 9.5 g/dl (12.0-16.0); Imm Gran Abs Auto 0.33 X10*3/uL (0.00-0.03); Imm Gran Pct Auto 1.5 % (0.0-0.4); Lymphocytes Absolute Auto 0.4 X10*3/uL (1.2-4.9); Lymphocytes Percent Auto 1.7 % (20-40); MANUAL DIFF FLAG SCAN; Mean Corpuscular HGB Conc 33.6 g/dl (31.0-35.0); Mean Corpuscular Hemoglobin 28.6 pg (27.0-33.0); Mean Corpuscular Volume 85.2 fL (80.0-98.0); Mean Platelet Volume 10.6 fL (9.4-12.3); Monocytes Absolute Auto 0.3 X10*3/uL (0.1-1.2); Monocytes Percent Auto 1.1 % (2-11); Neutrophils Absolute Auto 21.1 x10*3/uL (2.0-8.3); Neutrophils Percent Auto 94.7 % (45-73); Platelet Count 221 X10*3/uL (160-400); Red Blood Count 3.32 X10*6/uL (4.20-5.50); Red Cell Distribution Width 13.1 % (11.0-16.0); SCAN SMEAR FLAG 1; White Blood Count 22.3 X10*3/uL (4.8-10.8)
--- NOTE | 2022-08-19 05:50 | PC.NURSE ---
Pt was sleeping when nurse reassessed VS. Pt opened her eyes continues to speak in full sentences. Pt BETO x3.
--- NOTE | 2022-08-19 05:55 | PC.NURSE ---
Pt noted to have a slurred speech. Pt reports left hand index finger is numb.
--- NOTE | 2022-08-19 05:57 | PC.NURSE ---
Pt able to smile symmetrical, strong hand grasps noted. Pt continues to be alert and speaking in full sentences. Dr. Araujo at pt side.
[2022-08-19 06:00] LABS: ~Lactic Acid-LAB USE ONLY 4.1 mmol/L (0.5-2.0)
--- NOTE | 2022-08-19 06:27 | PM.IMHP ---
History of Present Illness Date of Service: 08/19/22 Chief Complaint: Altered mentation This is a 76-year-old female with pertinent history of essential hypertension, mixed hyperlipidemia, pvd-kxdzeju-gvldjtmyh diabetes mellitus, mood disorder, chronic kidney disease who was brought to the emergency department for evaluation of confusion and shivering. Patient is a poor historian and unable to provide any history. History obtained from chart review and ER provider. Patient was brought by the ambulance as reported that patient wished during all day. She is prone to UTI and has been confused throughout the day. Patient is only oriented to person and unable to provide history or review of systems. No at bedside at the time of my evaluation. in the ER, patient with severe sepsis. Imaging was consistent with pneumonia and urine was consistent with UTI Review of Systems Review of Systems: Yes Unobtainable due to mental condition and Unobtainable due to mental status PMF Medical History Adult BMI 30.0-30.9 kg/sq m Age-related osteoporosis without current pathological fracture Anemia B12 deficiency Breast pain, left Celiac disease Chronic kidney disease, stage 3 CKD (chronic kidney disease) Decreased pedal pulses Diabetes mellitus with complication Dyslipidemia Essential hypertension GERD (gastroesophageal reflux disease) Gitelman disease Gout Hiatal hernia IBS (irritable bowel syndrome) Neuropathy Obesity (BMI 30-39.9) On beta jody at home GOPAL on CPAP Osteoarthritis Proteinuria Restrictive lung disease Retinopathy Right rotator cuff tear Seizures 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 Mother Cancer Diabetes Daughter Substance use disorder Mental health disorder Surgical History History of back surgery History of carpal tunnel surgery of right wrist History of left shoulder replacement History of revision of total replacement of right hip joint History of total left knee replacement Hx of colonoscopy Hx of fracture of fibula Social History Household Members: Spouse Household Members Other:: 2 daughter and their children Housing: House Are you a primary director medicare sales to a significant other at home: No Do you presently have visiting nurse or other home services: No Alcohol intake: current Patient Tobacco Use Status: Former Tobacco user Tobacco use type: Cigarette Years Smoked: 1963 e-Cigarette/Vaping Use: Never Used Second Hand Smoke Exposure: Yes Advance Directives: No Current occupational status: retired Cognitive needs: No Hearing needs: No Vision needs: Yes Meds Allergies Allergy/AdvReac Type Severity Reaction Status Date / Time sulfamethoxazole Allergy Unknown UNKNOWN Verified 06/17/22 11:25 [From BACTRIM] trimethoprim [From BACTRIM] Allergy Unknown UNKNOWN Verified 06/17/22 11:25 PLASTIC TAPE Allergy Intermediate RASH Uncoded 06/17/22 11:25 Adhesive Bandages Allergy Unknown bilsters Uncoded 06/17/22 11:25 From Dilantin Allergy Unknown Hives Uncoded 06/17/22 11:25 Active Medications: Current Medications Acetaminophen (Acetaminophen 325 Mg Tablet) 650 mg PO Q6H PRN PRN Reason: Pain, Mild (Pain Scale 1-3) Heparin Sodium/Sodium Chloride (Heparin Sodium,Porcine/1/2ns) 25,000 unit in 250 mls @ 12.4 mls/hr IVCONT .[id number] [facility]; Protocol Last Admin: 08/19/22 02:58 Dose: 14 units/kg/hr, 12.4 mls/hr Ceftriaxone Sodium 1 gm/ (Sodium Chloride) 50 mls @ 100 mls/hr IV Q24H [facility] Azithromycin 500 mg/ Sodium (Chloride) 250 mls @ 125 mls/hr IV Q24H [facility] Melatonin (Melatonin 3 Mg Tablet) 6 mg PO BEDTIME PRN PRN Reason: Insomnia Ondansetron HCl (Ondansetron Hcl 4 Mg/2 Ml Vial) 4 mg IVPUSH Q8H PRN PRN Reason: Nausea and Vomiting Sodium Chloride (0.9 % Sodium Chloride Flush 3 Ml Syringe) 3 ml IVFLUSH QSHIFT [facility] Home Medications Medication Instructions Recorded Confirmed Last Taken Type blood sugar diagnostic #10 ea 05/17/20 05/27/22 Unknown History lancets 33 gauge #100 ea 05/17/20 05/27/22 Unknown History magnesium oxide 400 mg (241.3 mg 400 mg PO BID 05/22/20 05/27/22 08/01/20 05:00 History magnesium) tablet duloxetine 20 mg capsule,delayed 20 mg PO DAILY 05/08/21 05/27/22 07/02/21 07:10 History release loperamide 2 mg capsule 4 mg PO BID 01/28/22 05/27/22 Unknown History Physical Exam Vital Signs and Narrative: Vital Signs: Last Vital Signs Temp 100.4 F 08/19/22 05:47 Pulse 70 08/19/22 05:47 Resp 18 08/19/22 05:47 BP 92/52 L 08/19/22 05:47 Pulse Ox 95 08/19/22 05:47 O2 Del Method 08/19/22 05:47 BMI result Body Mass Index 28.0 Elderly female lying in bed in mild distress, diaphoretic Neck supple, no JVD, dry mouth Regular rate and rhythm, S1-S2 heard left-sided crackles heard Abdomen soft nontender, no guarding, no rigidity Patient is awake, alert and oriented to self, disoriented to place, time and person ; no focal motor deficit Psych: Normal mood No pedal edema Results Labs 08/19/22 05:22 08/19/22 04:43 Labs: Laboratory Results - last 24 hr 08/18/22 08/18/22 08/18/22 23:24 23:24 23:24 MCV 84.3 MCH 28.2 MCHC 33.4 RDW 12.8 Plt Count 305 MPV 9.7 Immature Gran % (Auto) 0.4 Neut % (Auto) 97.4 H Lymph % (Auto) 1.8 L [place] % (Auto) 0.1 L Eos % (Auto) 0.1 Baso % (Auto) 0.2 Lymph # (Auto) 0.2 L [place] # (Auto) 0.0 L Eos # (Auto) 0.0 Baso # (Auto) 0.0 Abs Immat Gran (auto) 0.04 H Absolute Neuts (auto) 9.6 H Absolute Nucleated RBC 0.000 Nucleated RBC % (auto) 0.0 Smear Tech's Comments VERIFIED PT 12.5 INR 1.1 APTT 28.8 aPTT Heparin Protocol VBG pH VBG pCO2 VBG pO2 VBG HCO3 VBG O2 Saturation VBG Base Excess Anion Gap 20 Estim Creat Clear Calc 25.6 Estimated GFR 21 POC Glucose Random Glucose 114 Lactic Acid Lactic Acid F/U @ 2Hr Lactic Acid F/U @ 4Hr Calcium 10.0 D Total Bilirubin 0.3 Direct Bilirubin < 0.2 AST 25 ALT 10 Alkaline Phosphatase 82 Ammonia Troponin I High Sens B-Natriuretic Peptide Total Protein 8.4 H Albumin 3.9 Urine Color Urine Appearance Urine pH Ur Specific [place] Urine Protein Urine Glucose (UA) Urine Ketones Urine Blood Urine Nitrite Ur Leukocyte Esterase Urine RBC Urine WBC Ur Squamous Epith Cells Urine Bacteria Hyaline Casts COVID-19 ([facility]) COVID-19 Clin Com Influenza Type A (CARLY) Influenza Type B (CARLY) Influenza A & B Note 08/18/22 08/18/22 08/18/22 23:24 23:24 23:24 MCV MCH MCHC RDW Plt Count MPV Immature Gran % (Auto) Neut % (Auto) Lymph % (Auto) [place] % (Auto) Eos % (Auto) Baso % (Auto) Lymph # (Auto) [place] # (Auto) Eos # (Auto) Baso # (Auto) Abs Immat Gran (auto) Absolute Neuts (auto) Absolute Nucleated RBC Nucleated RBC % (auto) Smear Tech's Comments PT INR APTT aPTT Heparin Protocol VBG pH VBG pCO2 VBG pO2 VBG HCO3 VBG O2 Saturation VBG Base Excess Anion Gap Estim Creat Clear Calc Estimated GFR POC Glucose Random Glucose Lactic Acid 3.5 H* Lactic Acid F/U @ 2Hr Lactic Acid F/U @ 4Hr Calcium Total Bilirubin Direct Bilirubin AST ALT Alkaline Phosphatase Ammonia 31 Troponin I High Sens 1018.6 H* B-Natriuretic Peptide Total Protein Albumin Urine Color Urine Appearance Urine pH Ur Specific [place] Urine Protein Urine Glucose (UA) Urine Ketones Urine Blood Urine Nitrite Ur Leukocyte Esterase Urine RBC Urine WBC Ur Squamous Epith Cells Urine Bacteria Hyaline Casts COVID-19 ([facility]ARA) COVID-19 Clin Com Influenza Type A (CARLY) Influenza Type B (CARLY) Influenza A & B Note 08/18/22 08/18/22 08/18/22 23:24 23:24 23:24 MCV MCH MCHC RDW Plt Count MPV Immature Gran % (Auto) Neut % (Auto) Lymph % (Auto) [place] % (Auto) Eos % (Auto) Baso % (Auto) Lymph # (Auto) [place] # (Auto) Eos # (Auto) Baso # (Auto) Abs Immat Gran (auto) Absolute Neuts (auto) Absolute Nucleated RBC Nucleated RBC % (auto) Smear Tech's Comments PT INR APTT aPTT Heparin Protocol VBG pH VBG pCO2 VBG pO2 VBG HCO3 VBG O2 Saturation VBG Base Excess Anion Gap Estim Creat Clear Calc Estimated GFR POC Glucose Random Glucose Lactic Acid Lactic Acid F/U @ 2Hr Lactic Acid F/U @ 4Hr Calcium Total Bilirubin Direct Bilirubin AST ALT Alkaline Phosphatase Ammonia Troponin I High Sens B-Natriuretic Peptide 111 H Total Protein Albumin Urine Color Urine Appearance Urine pH Ur Specific [place] Urine Protein Urine Glucose (UA) Urine Ketones Urine Blood Urine Nitrite Ur Leukocyte Esterase Urine RBC Urine WBC Ur Squamous Epith Cells Urine Bacteria Hyaline Casts COVID-19 ([facility]ARA) Negative COVID-19 Clin Com See Note Influenza Type A (CARLY) Negative Influenza Type B (CARLY) Negative Influenza A & B Note See Note 08/19/22 08/19/22 08/19/22 00:52 00:57 01:44 MCV MCH MCHC RDW Plt Count MPV Immature Gran % (Auto) Neut % (Auto) Lymph % (Auto) [place] % (Auto) Eos % (Auto) Baso % (Auto) Lymph # (Auto) [place] # (Auto) Eos # (Auto) Baso # (Auto) Abs Immat Gran (auto) Absolute Neuts (auto) Absolute Nucleated RBC Nucleated RBC % (auto) Smear Tech's Comments PT INR APTT aPTT Heparin Protocol Cancelled VBG pH 7.40 VBG pCO2 38 VBG pO2 40 VBG HCO3 24 VBG O2 Saturation 59.0 VBG Base Excess -0.3 Anion Gap Estim Creat Clear Calc Estimated GFR POC Glucose Random Glucose Lactic Acid Lactic Acid F/U @ 2Hr 4.2 H* Lactic Acid F/U @ 4Hr Calcium Total Bilirubin Direct Bilirubin AST ALT Alkaline Phosphatase Ammonia Troponin I High Sens B-Natriuretic Peptide Total Protein Albumin Urine Color Urine Appearance Urine pH Ur Specific [place] Urine Protein Urine Glucose (UA) Urine Ketones Urine Blood Urine Nitrite Ur Leukocyte Esterase Urine RBC Urine WBC Ur Squamous Epith Cells Urine Bacteria Hyaline Casts COVID-19 ([facility]) COVID-19 Clin Com Influenza Type A (CARLY) Influenza Type B (CARLY) Influenza A & B Note 08/19/22 08/19/22 08/19/22 01:52 03:27 04:43 MCV MCH MCHC RDW Plt Count MPV Immature Gran % (Auto) Neut % (Auto) Lymph % (Auto) [place] % (Auto) Eos % (Auto) Baso % (Auto) Lymph # (Auto) [place] # (Auto) Eos # (Auto) Baso # (Auto) Abs Immat Gran (auto) Absolute Neuts (auto) Absolute Nucleated RBC Nucleated RBC % (auto) Smear Tech's Comments PT INR APTT aPTT Heparin Protocol VBG pH VBG pCO2 VBG pO2 VBG HCO3 VBG O2 Saturation VBG Base Excess Anion Gap 17 Estim Creat Clear Calc 23.3 Estimated GFR 19 POC Glucose 121 H Random Glucose 152 H Lactic Acid Lactic Acid F/U @ 2Hr Lactic Acid F/U @ 4Hr Calcium 8.4 D Total Bilirubin Direct Bilirubin AST ALT Alkaline Phosphatase Ammonia Troponin I High Sens B-Natriuretic Peptide Total Protein Albumin Urine Color Yellow Urine Appearance Clear Urine pH 7.0 Ur Specific [place] 1.010 Urine Protein 30 (1+) H Urine Glucose (UA) Negative Urine Ketones Negative Urine Blood Moderate (2+) H Urine Nitrite Positive H Ur Leukocyte Esterase Moderate (2+) H Urine RBC 3-5 H Urine WBC 6-10 H Ur Squamous Epith Cells 3-5 Urine Bacteria 4+ Hyaline Casts 0-2 COVID-19 ([facility]ARA) COVID-19 Clin Com Influenza Type A (CARLY) Influenza Type B (CARLY) Influenza A & B Note 08/19/22 08/19/22 05:22 05:22 MCV 85.2 MCH 28.6 MCHC 33.6 RDW 13.1 Plt Count 221 D MPV 10.6 Immature Gran % (Auto) 1.5 H Neut % (Auto) 94.7 H Lymph % (Auto) 1.7 L [place] % (Auto) 1.1 L Eos % (Auto) 0.8 Baso % (Auto) 0.2 Lymph # (Auto) 0.4 L [place] # (Auto) 0.3 Eos # (Auto) 0.2 Baso # (Auto) 0.0 Abs Immat Gran (auto) 0.33 H Absolute Neuts (auto) 21.1 H Absolute Nucleated RBC 0.000 Nucleated RBC % (auto) 0.0 Smear Tech's Comments PT INR APTT aPTT Heparin Protocol VBG pH VBG pCO2 VBG pO2 VBG HCO3 VBG O2 Saturation VBG Base Excess Anion Gap Estim Creat Clear Calc Estimated GFR POC Glucose Random Glucose Lactic Acid Lactic Acid F/U @ 2Hr Lactic Acid F/U @ 4Hr 4.1 H* Calcium Total Bilirubin Direct Bilirubin AST ALT Alkaline Phosphatase Ammonia Troponin I High Sens B-Natriuretic Peptide Total Protein Albumin Urine Color Urine Appearance Urine pH Ur Specific [place] Urine Protein Urine Glucose (UA) Urine Ketones Urine Blood Urine Nitrite Ur Leukocyte Esterase Urine RBC Urine WBC Ur Squamous Epith Cells Urine Bacteria Hyaline Casts COVID-19 ([facility]ARA) COVID-19 Clin Com Influenza Type A (CARLY) Influenza Type B (CARLY) Influenza A & B Note Imaging Radiologist's Impressions: Impressions Chest X-Ray 08/19/22 01:05 IMPRESSION: Retrocardiac left basilar opacity, suspected to be due to previously identified large hiatal hernia. Assessment and Plan (1) Sepsis: Status: Acute (2) Non-ST elevation ID (NSTEMI): Status: Acute (3) Pneumonia: Status: Acute Plan This is a 76-year-old female with pertinent history of essential hypertension, mixed hyperlipidemia, jfd-tpskyjq-indkrxngu diabetes mellitus, mood disorder, chronic kidney disease who was brought to the emergency department for evaluation of confusion and shivering. #. severe sepsis due to left-sided pneumonia and UTI: Patient resuscitated with IV crystalloids. Lactic acid and blood cultures were obtained. Continue empiric IV antibiotics. Follow urine cultures. Low threshold to broaden antibiotics and start pressors. #. acute metabolic encephalopathy in the setting of above #. NSTEMI: Patient initiated on IV heparin in the ER. Will obtain echo and consult Cardiology. Will administer aspirin #. acute type A lactic acidosis due to sepsis #. Elevated creatinine, patient with CKD: Likely at baseline. Continue to monitor urine output and creatinine with fluid resuscitation. Avoid nephrotoxins #. Chronic normocytic anemia: Hemoglobin above transfusion threshold #. essential hypertension: Hold antihypertensives in the setting of sepsis. Restart as appropriate #. who-udzcory-ywgsqnqes diabetes mellitus: Initiate Accu-Cheks with sliding scale insulin every 6 hours med rec pending DVT prophylaxis: On heparin drip code status: Full code. Readdress code status with in am NPO until mentation improves Admit as inpatient and will require two night minimum hospital stay for IV antibiotics Time Spent With Patient Time: Total time managing care of this patient today ____ minutes. Quality Stroke Does the patient have a stroke diagnosis?: No VTE Prior VTE?: No VTE Risk Level:: Medical - moderate - high VTE Device Contraindication: Treatment Not Indicated VTE Drug Contraindication: N/A - Med Ordered
[2022-08-19] MEDS: 0.9 % Sodium Chloride 1,000 ML 999 ML IV (06:32)
--- NOTE | 2022-08-19 06:39 | PC.NURSE ---
Aron Hernandez at pt side visiting patient.
--- NOTE | 2022-08-19 06:49 | PC.NURSE ---
Cooling blanket removed from patient.
--- NOTE | 2022-08-19 07:00 | CA_ITS ---
Transthoracic Echocardiogram Patient (Last, First, Middle): Wanda Blum M Gender: Female Date of : 1945 Age: 76 Procedure Date: 08/19/2022 Procedure Type: Transthoracic Echocardiogram Location: ER Height: 177.8 cm Weight: 88.45 kg BSA: 2.06 m2 Heart Rate: 68 bpm BP: 92 / 40 mmHg Launch Check Out: TWILA Referring MD: Naima Cary MD Symptoms: NSTEMI Study Quality: Adequate/Contrast ECG Rhythm: Sinus Conclusions: - Normal left ventricular size and systolic function. There is mildly increased left ventricular wall thickness. The visually estimated ejection fraction is between 55-60%. - The entire apex is akinetic. - Normal right ventricular cavity size and systolic function. - There is mild aortic valve stenosis. Findings Procedure Information Contrast agent, definity, is being given per protocol without apparent complications. Left Ventricle Normal left ventricular size and systolic function. There is mildly increased left ventricular wall thickness. The visually estimated ejection fraction is between 55-60%. There is evidence of regional wall motion abnormalities. Abnormal diastolic function is noted. Spectral Doppler is indicative of a pseudonormal filling pattern. E/E prime ratio is >15, consistent with elevated filling pressures. Wall Motion Rest Echo Findings The entire apex is akinetic. Right Ventricle Normal right ventricular cavity size and systolic function. Atria The left atrium is mildly dilated. The right atrium is mildly dilated. Aortic Valve There is a normal trileaflet aortic valve. There is mild calcification of the aortic valve. There is mild aortic valve stenosis. There is no aortic valve regurgitation. Pulmonic Valve The pulmonic valve is likely normal. Tricuspid Valve Normal tricuspid valve structure and function. Mildly elevated right atrial pressure. There is no evidence of pulmonary hypertension. Great Vessels All visible segments of the aorta are normal in size. The visualized portions of the pulmonary artery and branches are normal. Venous The inferior vena cava is dilated and collapses greater than 50% with inspiration. Pericardium/Pleural There is no evidence of pericardial effusion. Prior Study Comparison Changes noted compared to prior study dated: 06/05/2020. Apical segments are akinetic. Measurements 2D Linear Measurements IVSd: 1.07 0.6-0.9/0.6-1.0 cm LVIDd: 3.56 3.9-5.3/4.2-5.9 cm LVIDd Index: 1.73 2.4-3.2/2.2-3.1 cm/m2 LVIDs: 1.82 2.0-3.6 cm LVPWd: 1.16 0.7-1.1 cm LA Diam: 3.20 2.7-3.8/3.0-4.0 cm LAIDs Index: 1.55 1.5-2.3 cm/m2 LV Mass: 154.95 67-162/88-224 g LV Mass Index: 75.22 43-95/49-115 g/m2 LVOT Diam: 2.10 3.0+(-)1.3 cm 2D Systolic Function EF 4C: 65.30 >55% EF 2C: 57.60 >55% EF BiP: 62.20 >55% Mitral Valve MV Pk E: 1.18 MV PK A: 0.88 MV Decel Time: 203.00 E/A: 1.30 E'Lateral: 6.96 E'Medial: 6.20 E/E' Med: 19.00 E/E' Lat: 17.00 PHT: 60.00 MVA PHT: 3.67 Decel [place]: 5.78 Aortic Valve AoV Pk Felix: 2.24 AoV Mn Felix: 1.58 AoV VTI: 0.53 AoV Pk Grad: 20.00 Aov Mn Grad: 11.00 SHIREEN Cont.VTI: 1.93 LVOT LVOT Pk Felix: 1.17 LVOT Mn Felix: 0.90 LVOT VTI: 0.30 LVOT Pk Grad: 5.00 LVOT Mn Grad: 3.00 LVOT Diam: 2.10 LVOT Area: 3.46 Diastolic Function MV Pk E: 1.18 MV Pk A: 0.88 E/A: 1.30 E'Medial: 6.20 E/E' Med: 19.00 E' Laterial: 6.96 E/E' Lat: 17.00 Right Ventricle TAPSE (mm): 21.20 TVS' Felix: 10.60 Tricuspid Valve TR Pk Felix: 1.85 TR Pk Grad: 14.00 RA Press: 8.00 RVSP: 22.00 Great Vessels Aorta Sinus of Valsalva: 3.18 2.0-3.5 cm Ao Asc: 3.10 2.1-3.4 cm Updated in Other Vendor System with Status of Final Michael Ledesma MD electronically signed on 08/19/2022 3:54:47 PM with status of Final
[2022-08-19] MEDS: Aspirin 300 MG SUPP.RECT PR (07:46)
[2022-08-19] MEDS: 0.9 % Sodium Chloride Flush 3 ML SYRINGE IVFLUSH ×2 (07:47→16:40)
[2022-08-19 07:53] LABS: Glucose, Whole Blood 115 mg/dL (60-115)
--- NOTE | 2022-08-19 08:10 | PC.NURSE ---
pt is /o x 4 no sob/john noted speaks in full sentences. pt is very pleasant. lungs - diminished. heart sounds - regular. abd soft and non-tender. bs + x 4 quads. no edema noted. heparin infusing at 14u/kg, ns 1l bolus infusing . pt continues to have rectal probe inserted. [place] d/c'd. see vss. hob up. pt aware of plan of care. pt is admitted to hosp.
--- NOTE | 2022-08-19 09:32 | MHC.CM.PN ---
Patient is unavailable; CM spoke with Daughter/HCP/ @ [phone] and addressed IMM with her (original to be mailed certified letter to and a copy to be placed on the chart). Patient lives in a house with her , Daughter, and Son-in-Law and she uses both a walker and a w/c to assist with mobility. believes that Patient is active with [facility] and Patient also has a SH[employer] 2X/week from [facility]. Home/resume said services is the goal and CM has initiated and will follow for dc planning. PCP is Dr. Mitul Garcia and Patient has received [employer] It vax x5.
--- NOTE | 2022-08-19 09:45 | PC.NURSE ---
bedside echocardiogram is being done , dr. tatum at bedside as well
[2022-08-19 10:08] LABS: Cholesterol 109 mg/dL; HDL Cholesterol 28 mg/dL; LDL Cholesterol Calculated 64 mg/dl; Triglycerides 89 mg/dL
[2022-08-19] MEDS: 0.9 % Sodium Chloride 1,000 ML 125 ML IVCONT ×2 (10:24→16:41)
[2022-08-19 11:05] LABS: PTT Heparin Drip 62.8 SEC (53-77.9)
--- NOTE | 2022-08-19 11:20 | PC.NURSE ---
heparin drip resumed at 14u/kg/hr
--- NOTE | 2022-08-19 11:57 | PC.NURSE ---
heparin drip resumed at 10u/kg/hr
--- NOTE | 2022-08-19 12:26 | PC.NURSE ---
PT'S DAUGHTER (JOHN THOMPSON, ) CALLED [facility] AND WAS UPDATED ON PT STATUS.
[2022-08-19 12:44] LABS: Glucose, Whole Blood 214 mg/dL (60-115)
--- NOTE | 2022-08-19 13:35 | PM.EVENT ---
Event Note Date of Service: 08/19/22 Event Note: Patient admitted with acute onset of chills and shivering was chills associated with confusion and significant weakness, in ER patient was noted to be hypotensive with systolic BP of 73/46 , fever of 103.3, tachycardia, tachypnea, lactic acidosis, UA significantly positive, elevated troponin, chest x-ray showed retrocardiac left basilar opacity suspected to be due to large hiatal hernia patient treated in the emergency room with IV fluids, IV antibiotics and IV heparin. At present patient awake alert denies chest pain, no shortness of breath, no palpitation, admits that symptoms acutely started by feeling cold Ensure bring denies urinary symptoms of urgency frequency. General awake alert in no distress Neck no JVD Lungs clear to auscultation Heart regular rate rhythm Abdomen soft nontender bowel sounds audible Extremities no edema a/p Severe sepsis due to UTI continue IV antibiotics, IV fluids, follow double WBC and blood culture. Acute toxic metabolic encephalopathy resolved, resume diabetic diet. Non ST-elevation ND likely secondary due to acute infection, continue IV heparin, aspirin, statins hold beta-blockers due to low blood pressure follow echo and Cardio eval Will follow patient echocardiogram, lipid profile, repeat EKG discuss further management with Cardiology continue current treatment and follow clinical course. Med rec done. Time Spent With Patient Time: Total time managing care of this patient today ____ minutes.
[2022-08-19] MEDS: Insulin Lispro 100 UNIT/ML 3 ML VIAL SUBCUT ×2 (14:30→18:30)
[2022-08-19] MEDS: Butalb/Acetamin/Caff 50/325/40 TABLET 1 TAB PO (14:32)
--- NOTE | 2022-08-19 14:41 | PHA.MEDREC ---
Pharmacy Consult ? Medication Reconciliation Pharmacy has completed the medication reconciliation. Spoke to patient at bedside, patient was a good historian however she did want me to confirm with . Called but no answer. Used pharmacy claims to complete/confirm list. Of Note: when I first interviewed the patient she had told me that pregabalin makes her go crazy . Later in the day she was asking her RN for it. When I interviewed her the second time the patient had explained that she was confused about which one made her feel that way but she did insist that it was actually not the pregabalin. Added pregabalin back to list.
--- NOTE | 2022-08-19 15:00 | HE.PHANOTE ---
SENT PT OWN MAG-TAB SR DOWN TO ER WITH LABEL. BOTTLE WAS BRAND NEW.
--- NOTE | 2022-08-19 15:56 | P.CONCA_ITS ---
History of Present Illness History of Present Illness Date of Service: 08/19/22 Requesting physician: Peyton Harrison Chief complaint: UTI, NSTEMI Narrative: 76-year-old female who has history of diabetes, hypertension, hyperlipidemia and peripheral skin disease who is presenting with urinary tract infection and sepsis. She was noticed to have elevated troponin levels. She denying any chest discomfort or shortness of breath. Echocardiography showing apical khalif esis with differentials of ischemic heart disease versus takotsubo cardiomyopathy. She is denying any symptoms currently. She is saying she was feeling weak and had chills which brought her to the emergency department. It appears she had change in mental status on admission but with antibiotics she is improving. She has chronic kidney disease and creatinine is 2.44. She was started on heparin drip by the medicine team and is currently on heparin. [facility] Past Medical History Medical History Adult BMI 30.0-30.9 kg/sq m Age-related osteoporosis without current pathological fracture Anemia B12 deficiency Breast pain, left Celiac disease Chronic kidney disease, stage 3 CKD (chronic kidney disease) Decreased pedal pulses Diabetes mellitus with complication Dyslipidemia Essential hypertension GERD (gastroesophageal reflux disease) Gitelman disease Gout Hiatal hernia IBS (irritable bowel syndrome) Neuropathy Obesity (BMI 30-39.9) On beta jody at home GOPAL on CPAP Osteoarthritis Proteinuria Restrictive lung disease Retinopathy Right rotator cuff tear Seizures 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 Mother Cancer Diabetes Daughter Substance use disorder Mental health disorder Surgical History Surgical History History of back surgery History of carpal tunnel surgery of right wrist History of left shoulder replacement History of revision of total replacement of right hip joint History of total left knee replacement Hx of colonoscopy Hx of fracture of fibula Social History Social History Household Members: Spouse Household Members Other:: 2 daughter and their children Housing: House Are you a primary day care attendant to a significant other at home: No Do you presently have visiting nurse or other home services: No Alcohol intake: current Patient Tobacco Use Status: Former Tobacco user Tobacco use type: Cigarette Years Smoked: 1963 e-Cigarette/Vaping Use: Never Used Second Hand Smoke Exposure: Yes Advance Directives: No service: No Current occupational status: retired Cognitive needs: No Hearing needs: No Vision needs: Yes Meds Allergies Allergy/AdvReac Type Severity Reaction Status Date / Time sulfamethoxazole Allergy Unknown UNKNOWN Verified 06/17/22 11:25 [From BACTRIM] trimethoprim [From BACTRIM] Allergy Unknown UNKNOWN Verified 06/17/22 11:25 PLASTIC TAPE Allergy Intermediate RASH Uncoded 06/17/22 11:25 Adhesive Bandages Allergy Unknown bilsters Uncoded 06/17/22 11:25 From Dilantin Allergy Unknown Hives Uncoded 06/17/22 11:25 Active Medications: Current Medications Acetaminophen (Acetaminophen 325 Mg Tablet) 650 mg PO Q6H PRN PRN Reason: Pain, Mild (Pain Scale 1-3) Acetaminophen/Butalbital/Caffeine (Butalb/Acetamin/Caff 50/325/40 Tablet) 1 tab PO ONCE PRN PRN Reason: headache Last Admin: 08/19/22 14:32 Dose: 1 tab Albuterol Sulfate (Albuterol Sulfate 90 Mcg 8 Gm Inhaler) 1 puff INHALE Q6H PRN PRN Reason: bronchospasm Dextrose (Dextrose 50 % 25 Gm/50 Ml Syringe) 25 gm IVPUSH Q15M PRN; Protocol PRN Reason: per Hypoglycemia Standing Ord. Duloxetine HCl (Duloxetine Hcl 20 Mg Capsule.Dr) 20 mg PO DAILY [facility] Glucose (Glucose Gel 15 Gm Gel..Gram.) 15 gm PO Q15M PRN; Protocol PRN Reason: per Hypoglycemia Standing Ord. Heparin Sodium/Sodium Chloride (Heparin Sodium,Porcine/1/2ns) 25,000 unit in 250 mls @ 12.4 mls/hr IVCONT .[id number] [facility]; Protocol Last Titration: 08/19/22 11:53 Dose: 10 units/kg/hr, 8.86 mls/hr Ceftriaxone Sodium 1 gm/ (Sodium Chloride) 50 mls @ 100 mls/hr IV Q24H [facility] Azithromycin 500 mg/ Sodium (Chloride) 250 mls @ 125 mls/hr IV Q24H [facility] Sodium Chloride (Ns) 1,000 mls @ 125 mls/hr IVCONT .Q8H [facility] Last Admin: 08/19/22 10:24 Dose: 125 mls/hr Insulin Human Lispro (Insulin Lispro 100 Unit/Ml 3 Ml Vial) 0 unit SUBCUT QIDACHS [facility]; Protocol Last Admin: 08/19/22 14:30 Dose: 4 unit Magnesium Oxide (Magnesium Oxide 400 Mg Tablet) 400 mg PO BID [facility] Melatonin (Melatonin 3 Mg Tablet) 6 mg PO BEDTIME PRN PRN Reason: Insomnia Pt Own (Mag-Tab Sr (Tablet)) 2 tab PO BID [facility] Omeprazole (Omeprazole 40 Mg Capsule.Dr) 40 mg PO BID@0630,1630 [facility] Ondansetron HCl (Ondansetron Hcl 4 Mg/2 Ml Vial) 4 mg IVPUSH Q8H PRN PRN Reason: Nausea and Vomiting Paroxetine HCl (Paroxetine Hcl 40 Mg Tablet) 40 mg PO DAILY [facility] Pharmacy Consult (Consult Rx Perform Med Rec) 1 each MISCELLANE ONCE PRN PRN Reason: Consult order Pravastatin Sodium (Pravastatin Sodium 20 Mg Tablet) 20 mg PO DAILY [facility] Pregabalin (Pregabalin 100 Mg Capsule) 100 mg PO TID [facility] Sodium Chloride (0.9 % Sodium Chloride Flush 3 Ml Syringe) 3 ml IVFLUSH QSHIFT [facility] Last Admin: 08/19/22 07:47 Dose: 3 ml Vitamin D (Cholecalciferol (Vitamin D3) 25 Mcg Tablet) 50 mcg PO DAILY [facility] Home Medications Medication Instructions Recorded Confirmed Last Taken Type blood sugar diagnostic #10 ea 05/17/20 05/27/22 Unknown History lancets 33 gauge #100 ea 05/17/20 05/27/22 Unknown History duloxetine 20 mg capsule,delayed 20 mg PO DAILY 05/08/21 08/19/22 07/02/21 07:10 History release magnesium L-lactate 84 mg 168 mg PO BID 08/19/22 08/19/22 Unknown History tablet,extended release pregabalin 100 mg capsule 1 cap PO TID 08/19/22 08/19/22 Unknown History Physical Exam Vital Signs: Vital Signs: Last Vital Signs Temp 97.3 F 08/19/22 14:15 Pulse 63 08/19/22 14:15 Resp 16 08/19/22 14:15 BP 108/56 L 08/19/22 14:15 Pulse Ox 96 08/19/22 14:15 O2 Del Method 08/19/22 14:15 BMI result Body Mass Index 28.0 GENERAL APPEARANCE: in no acute distress, pleasant. NECK: no carotid bruit, no jugular venous distention. SKIN: no suspicious lesions, warm and dry. HEART: no murmurs, regular rate and rhythm. LUNGS: clear to auscultation bilaterally. ABDOMEN: soft, nontender. EXTREMITIES: no edema. PERIPHERAL PULSES: equal. NEUROLOGIC: No gross deficits, AAO X 3 Objective Labs and Meds 08/19/22 05:22 08/19/22 04:43 Lab results: Laboratory Results - last 24 hr 08/18/22 08/18/22 08/18/22 23:24 23:24 23:24 WBC 9.9 RBC 4.40 Hgb 12.4 Hct 37.1 MCV 84.3 MCH 28.2 MCHC 33.4 RDW 12.8 Plt Count 305 MPV 9.7 Immature Gran % (Auto) 0.4 Neut % (Auto) 97.4 H Lymph % (Auto) 1.8 L [place] % (Auto) 0.1 L Eos % (Auto) 0.1 Baso % (Auto) 0.2 Lymph # (Auto) 0.2 L [place] # (Auto) 0.0 L Eos # (Auto) 0.0 Baso # (Auto) 0.0 Abs Immat Gran (auto) 0.04 H Absolute Neuts (auto) 9.6 H Absolute Nucleated RBC 0.000 Nucleated RBC % (auto) 0.0 Smear Tech's Comments VERIFIED PT 12.5 INR 1.1 APTT 28.8 aPTT Heparin Protocol VBG pH VBG pCO2 VBG pO2 VBG HCO3 VBG O2 Saturation VBG Base Excess Sodium 135 Potassium 4.3 Chloride 96 Carbon Dioxide 23 Anion Gap 20 BUN 27 H Creatinine 2.22 H Estim Creat Clear Calc 25.6 Estimated GFR 21 POC Glucose Random Glucose 114 Lactic Acid Lactic Acid F/U @ 2Hr Lactic Acid F/U @ 4Hr Calcium 10.0 D Total Bilirubin 0.3 Direct Bilirubin < 0.2 AST 25 ALT 10 Alkaline Phosphatase 82 Ammonia Troponin I High Sens B-Natriuretic Peptide Total Protein 8.4 H Albumin 3.9 Triglycerides Cholesterol LDL Cholesterol, Calc HDL Cholesterol Urine Color Urine Appearance Urine pH Ur Specific [place] Urine Protein Urine Glucose (UA) Urine Ketones Urine Blood Urine Nitrite Ur Leukocyte Esterase Urine RBC Urine WBC Ur Squamous Epith Cells Urine Bacteria Hyaline Casts COVID-19 ([facility]) COVID-19 Clin Com Influenza Type A (CARLY) Influenza Type B (CARLY) Influenza A & B Note 08/18/22 08/18/22 08/18/22 23:24 23:24 23:24 WBC RBC Hgb Hct MCV MCH MCHC RDW Plt Count MPV Immature Gran % (Auto) Neut % (Auto) Lymph % (Auto) [place] % (Auto) Eos % (Auto) Baso % (Auto) Lymph # (Auto) [place] # (Auto) Eos # (Auto) Baso # (Auto) Abs Immat Gran (auto) Absolute Neuts (auto) Absolute Nucleated RBC Nucleated RBC % (auto) Smear Tech's Comments PT INR APTT aPTT Heparin Protocol VBG pH VBG pCO2 VBG pO2 VBG HCO3 VBG O2 Saturation VBG Base Excess Sodium Potassium Chloride Carbon Dioxide Anion Gap BUN Creatinine Estim Creat Clear Calc Estimated GFR POC Glucose Random Glucose Lactic Acid 3.5 H* Lactic Acid F/U @ 2Hr Lactic Acid F/U @ 4Hr Calcium Total Bilirubin Direct Bilirubin AST ALT Alkaline Phosphatase Ammonia 31 Troponin I High Sens 1018.6 H* B-Natriuretic Peptide Total Protein Albumin Triglycerides Cholesterol LDL Cholesterol, Calc HDL Cholesterol Urine Color Urine Appearance Urine pH Ur Specific [place] Urine Protein Urine Glucose (UA) Urine Ketones Urine Blood Urine Nitrite Ur Leukocyte Esterase Urine RBC Urine WBC Ur Squamous Epith Cells Urine Bacteria Hyaline Casts COVID-19 ([facility]ARA) COVID-19 Clin Com Influenza Type A (CARLY) Influenza Type B (CARLY) Influenza A & B Note 08/18/22 08/18/22 08/18/22 23:24 23:24 23:24 WBC RBC Hgb Hct MCV MCH MCHC RDW Plt Count MPV Immature Gran % (Auto) Neut % (Auto) Lymph % (Auto) [place] % (Auto) Eos % (Auto) Baso % (Auto) Lymph # (Auto) [place] # (Auto) Eos # (Auto) Baso # (Auto) Abs Immat Gran (auto) Absolute Neuts (auto) Absolute Nucleated RBC Nucleated RBC % (auto) Smear Tech's Comments PT INR APTT aPTT Heparin Protocol VBG pH VBG pCO2 VBG pO2 VBG HCO3 VBG O2 Saturation VBG Base Excess Sodium Potassium Chloride Carbon Dioxide Anion Gap BUN Creatinine Estim Creat Clear Calc Estimated GFR POC Glucose Random Glucose Lactic Acid Lactic Acid F/U @ 2Hr Lactic Acid F/U @ 4Hr Calcium Total Bilirubin Direct Bilirubin AST ALT Alkaline Phosphatase Ammonia Troponin I High Sens B-Natriuretic Peptide 111 H Total Protein Albumin Triglycerides Cholesterol LDL Cholesterol, Calc HDL Cholesterol Urine Color Urine Appearance Urine pH Ur Specific [place] Urine Protein Urine Glucose (UA) Urine Ketones Urine Blood Urine Nitrite Ur Leukocyte Esterase Urine RBC Urine WBC Ur Squamous Epith Cells Urine Bacteria Hyaline Casts COVID-19 ([facility]ARA) Negative COVID-19 Clin Com See Note Influenza Type A (CARLY) Negative Influenza Type B (CARLY) Negative Influenza A & B Note See Note 08/19/22 08/19/22 08/19/22 00:52 00:57 01:44 WBC RBC Hgb Hct MCV MCH MCHC RDW Plt Count MPV Immature Gran % (Auto) Neut % (Auto) Lymph % (Auto) [place] % (Auto) Eos % (Auto) Baso % (Auto) Lymph # (Auto) [place] # (Auto) Eos # (Auto) Baso # (Auto) Abs Immat Gran (auto) Absolute Neuts (auto) Absolute Nucleated RBC Nucleated RBC % (auto) Smear Tech's Comments PT INR APTT aPTT Heparin Protocol Cancelled VBG pH 7.40 VBG pCO2 38 VBG pO2 40 VBG HCO3 24 VBG O2 Saturation 59.0 VBG Base Excess -0.3 Sodium Potassium Chloride Carbon Dioxide Anion Gap BUN Creatinine Estim Creat Clear Calc Estimated GFR POC Glucose Random Glucose Lactic Acid Lactic Acid F/U @ 2Hr 4.2 H* Lactic Acid F/U @ 4Hr Calcium Total Bilirubin Direct Bilirubin AST ALT Alkaline Phosphatase Ammonia Troponin I High Sens B-Natriuretic Peptide Total Protein Albumin Triglycerides Cholesterol LDL Cholesterol, Calc HDL Cholesterol Urine Color Urine Appearance Urine pH Ur Specific [place] Urine Protein Urine Glucose (UA) Urine Ketones Urine Blood Urine Nitrite Ur Leukocyte Esterase Urine RBC Urine WBC Ur Squamous Epith Cells Urine Bacteria Hyaline Casts COVID-19 ([facility]ARA) COVID-19 Clin Com Influenza Type A (CARLY) Influenza Type B (CARLY) Influenza A & B Note 08/19/22 08/19/22 08/19/22 01:52 03:27 04:43 WBC RBC Hgb Hct MCV MCH MCHC RDW Plt Count MPV Immature Gran % (Auto) Neut % (Auto) Lymph % (Auto) [place] % (Auto) Eos % (Auto) Baso % (Auto) Lymph # (Auto) [place] # (Auto) Eos # (Auto) Baso # (Auto) Abs Immat Gran (auto) Absolute Neuts (auto) Absolute Nucleated RBC Nucleated RBC % (auto) Smear Tech's Comments PT INR APTT aPTT Heparin Protocol VBG pH VBG pCO2 VBG pO2 VBG HCO3 VBG O2 Saturation VBG Base Excess Sodium 134 L Potassium 4.1 Chloride 103 Carbon Dioxide 18 L Anion Gap 17 BUN 30 H Creatinine 2.44 H Estim Creat Clear Calc 23.3 Estimated GFR 19 POC Glucose 121 H Random Glucose 152 H Lactic Acid Lactic Acid F/U @ 2Hr Lactic Acid F/U @ 4Hr Calcium 8.4 D Total Bilirubin Direct Bilirubin AST ALT Alkaline Phosphatase Ammonia Troponin I High Sens B-Natriuretic Peptide Total Protein Albumin Triglycerides Cholesterol LDL Cholesterol, Calc HDL Cholesterol Urine Color Yellow Urine Appearance Clear Urine pH 7.0 Ur Specific [place] 1.010 Urine Protein 30 (1+) H Urine Glucose (UA) Negative Urine Ketones Negative Urine Blood Moderate (2+) H Urine Nitrite Positive H Ur Leukocyte Esterase Moderate (2+) H Urine RBC 3-5 H Urine WBC 6-10 H Ur Squamous Epith Cells 3-5 Urine Bacteria 4+ Hyaline Casts 0-2 COVID-19 ([facility]) COVID-19 Clin Com Influenza Type A (CARLY) Influenza Type B (CARLY) Influenza A & B Note 08/19/22 08/19/22 08/19/22 05:22 05:22 07:49 WBC 22.3 H RBC 3.32 L D Hgb 9.5 L D Hct 28.3 L D MCV 85.2 MCH 28.6 MCHC 33.6 RDW 13.1 Plt Count 221 D MPV 10.6 Immature Gran % (Auto) 1.5 H Neut % (Auto) 94.7 H Lymph % (Auto) 1.7 L [place] % (Auto) 1.1 L Eos % (Auto) 0.8 Baso % (Auto) 0.2 Lymph # (Auto) 0.4 L [place] # (Auto) 0.3 Eos # (Auto) 0.2 Baso # (Auto) 0.0 Abs Immat Gran (auto) 0.33 H Absolute Neuts (auto) 21.1 H Absolute Nucleated RBC 0.000 Nucleated RBC % (auto) 0.0 Smear Tech's Comments PT INR APTT aPTT Heparin Protocol VBG pH VBG pCO2 VBG pO2 VBG HCO3 VBG O2 Saturation VBG Base Excess Sodium Potassium Chloride Carbon Dioxide Anion Gap BUN Creatinine Estim Creat Clear Calc Estimated GFR POC Glucose 115 Random Glucose Lactic Acid Lactic Acid F/U @ 2Hr Lactic Acid F/U @ 4Hr 4.1 H* Calcium Total Bilirubin Direct Bilirubin AST ALT Alkaline Phosphatase Ammonia Troponin I High Sens B-Natriuretic Peptide Total Protein Albumin Triglycerides Cholesterol LDL Cholesterol, Calc HDL Cholesterol Urine Color Urine Appearance Urine pH Ur Specific [place] Urine Protein Urine Glucose (UA) Urine Ketones Urine Blood Urine Nitrite Ur Leukocyte Esterase Urine RBC Urine WBC Ur Squamous Epith Cells Urine Bacteria Hyaline Casts COVID-19 ([facility]ARA) COVID-19 Clin Com Influenza Type A (CARLY) Influenza Type B (CARLY) Influenza A & B Note 08/19/22 08/19/22 08/19/22 08:56 08:56 08:56 WBC RBC Hgb Hct MCV MCH MCHC RDW Plt Count MPV Immature Gran % (Auto) Neut % (Auto) Lymph % (Auto) [place] % (Auto) Eos % (Auto) Baso % (Auto) Lymph # (Auto) [place] # (Auto) Eos # (Auto) Baso # (Auto) Abs Immat Gran (auto) Absolute Neuts (auto) Absolute Nucleated RBC Nucleated RBC % (auto) Smear Tech's Comments PT INR APTT aPTT Heparin Protocol 109.0 H* VBG pH VBG pCO2 VBG pO2 VBG HCO3 VBG O2 Saturation VBG Base Excess Sodium Potassium Chloride Carbon Dioxide Anion Gap BUN Creatinine Estim Creat Clear Calc Estimated GFR POC Glucose Random Glucose Lactic Acid Lactic Acid F/U @ 2Hr Lactic Acid F/U @ 4Hr Calcium Total Bilirubin Direct Bilirubin AST ALT Alkaline Phosphatase Ammonia Troponin I High Sens 1757.0 H* D B-Natriuretic Peptide Total Protein Albumin Triglycerides 89 Cholesterol 109 LDL Cholesterol, Calc 64 HDL Cholesterol 28 Urine Color Urine Appearance Urine pH Ur Specific [place] Urine Protein Urine Glucose (UA) Urine Ketones Urine Blood Urine Nitrite Ur Leukocyte Esterase Urine RBC Urine WBC Ur Squamous Epith Cells Urine Bacteria Hyaline Casts COVID-19 ([facility]ARA) COVID-19 Clin Com Influenza Type A (CARLY) Influenza Type B (CARLY) Influenza A & B Note 08/19/22 08/19/22 08/19/22 10:36 12:40 13:56 WBC RBC Hgb Hct MCV MCH MCHC RDW Plt Count MPV Immature Gran % (Auto) Neut % (Auto) Lymph % (Auto) [place] % (Auto) Eos % (Auto) Baso % (Auto) Lymph # (Auto) [place] # (Auto) Eos # (Auto) Baso # (Auto) Abs Immat Gran (auto) Absolute Neuts (auto) Absolute Nucleated RBC Nucleated RBC % (auto) Smear Tech's Comments PT INR APTT aPTT Heparin Protocol 62.8 D VBG pH VBG pCO2 VBG pO2 VBG HCO3 VBG O2 Saturation VBG Base Excess Sodium Potassium Chloride Carbon Dioxide Anion Gap BUN Creatinine Estim Creat Clear Calc Estimated GFR POC Glucose 214 H Random Glucose Lactic Acid Lactic Acid F/U @ 2Hr Lactic Acid F/U @ 4Hr Calcium Total Bilirubin Direct Bilirubin AST ALT Alkaline Phosphatase Ammonia Troponin I High Sens 704.2 H* D B-Natriuretic Peptide Total Protein Albumin Triglycerides Cholesterol LDL Cholesterol, Calc HDL Cholesterol Urine Color Urine Appearance Urine pH Ur Specific [place] Urine Protein Urine Glucose (UA) Urine Ketones Urine Blood Urine Nitrite Ur Leukocyte Esterase Urine RBC Urine WBC Ur Squamous Epith Cells Urine Bacteria Hyaline Casts COVID-19 ([facility]) COVID-19 Clin Com Influenza Type A (CARLY) Influenza Type B (CARLY) Influenza A & B Note Imaging Radiologist's impression: Impressions Chest X-Ray 08/19/22 01:05 IMPRESSION: Retrocardiac left basilar opacity, suspected to be due to previously identified large hiatal hernia. Assessment and Plan (1) Non-ST elevation [place] (NSTEMI): Status: Acute Plan Pleasant 76-year-old female with sepsis due to urinary tract infection and NSTEMI. Echocardiography is consistent with apical akinesis with differentials of LAD territory ischemia versus takotsubo cardiomyopathy. She is denying any symptoms currently. She has significant risk factors for coronary disease and also has kidney disease at this stage. Continue heparin for 48 hours. She should be on baby aspirin. As sepsis improved then we will discuss whether a diagnostic angiography should be performed but I am more concerned about her kidney disease and worsening of her kidney function with contrast exposure. For now continue heparin drip. Treat the urinary tract infection. Clinically not in heart failure. Thank you for allowing me to participate in the care of your patient. Please feel free to contact me if you have any questions. Time Spent With Patient Time: Total time managing care of this patient today ____ minutes. Procedures Date of Service Date of Service: 08/19/22
[2022-08-19] MEDS: Omeprazole 40 MG CAPSULE.DR PO (16:40)
[2022-08-19] MEDS: Pregabalin 100 MG CAPSULE PO ×2 (16:40→23:11)
[2022-08-19 17:58] LABS: PTT Heparin Drip 59.1 SEC (53-77.9)
--- NOTE | 2022-08-19 18:20 | PC.NURSE ---
per protocol no bolus or rate change for PTT of 59
[2022-08-19 18:29] LABS: Glucose, Whole Blood 204 mg/dL (60-115)
[2022-08-19 21:59] LABS: Glucose, Whole Blood 116 mg/dL (60-115)
[2022-08-19] MEDS: Magnesium Oxide 400 MG TABLET PO (22:19)
[2022-08-19] MEDS: cefTRIAXone sodium 2 GM in 0.9 % Sodium Chloride 50 ML IV (23:11)
[2022-08-20] MEDS: 0.9 % Sodium Chloride 1,000 ML 125 ML IVCONT
[2022-08-20] MEDS: Heparin Sodium,Porcine/1/2NS 25,000 UNIT/250 ML IV.SOLN 8.86 UNIT IVCONT (02:21)
[2022-08-20 04:00] VITALS: BP 122/56; PULSE 62; RESP 16; TEMP 36.4; O2SAT 96
[2022-08-20 05:50] LABS: Glucose, Whole Blood 96 mg/dL (60-115)
[2022-08-20] MEDS: Omeprazole 40 MG CAPSULE.DR PO ×2 (06:18→16:58)
[2022-08-20 07:22] VITALS: BP 139/64; PULSE 72; RESP 20; TEMP 36.6; O2SAT 97
[2022-08-20 07:42] LABS: Glucose, Whole Blood 109 mg/dL (60-115)
[2022-08-20 08:20] LABS: Hematocrit 27.5 % (37.0-47.0); Mean Corpuscular HGB Conc 32.7 g/dl (31.0-35.0); Mean Corpuscular Hemoglobin 28.6 pg (27.0-33.0); Mean Corpuscular Volume 87.3 fL (80.0-98.0); Mean Platelet Volume 11.6 fL (9.4-12.3); Platelet Count 253 X10*3/uL (160-400); Red Blood Count 3.15 X10*6/uL (4.20-5.50); Red Cell Distribution Width 13.6 % (11.0-16.0); White Blood Count 20.4 X10*3/uL (4.8-10.8)
[2022-08-20 08:24] LABS: PTT Heparin Drip 44.7 SEC (53-77.9)
[2022-08-20 08:30] LABS: Anion Gap 14 (12-20); Blood Urea Nitrogen 24 mg/dL (9-16); Calcium 7.8 mg/dL (8.4-10.2); Carbon Dioxide 20 mmol/L (22-29); Chloride 112 mmol/L (96-108); Creatinine Clr Calc Pharmacy 34.7; Estimated Glomerular Filt Rate 30; Glucose Random 103 mg/dL (60-115); Potassium 4.5 mmol/L (3.3-5.1); Sodium 141 mmol/L (135-145)
[2022-08-20] MEDS: Heparin Sodium,Porcine 5,000 UNIT/ML VIAL 3500 UNIT IVPUSH ×2 (08:41→15:18)
[2022-08-20] MEDS: DULoxetine HCl 20 MG CAPSULE.DR PO (09:59)
[2022-08-20] MEDS: Pregabalin 100 MG CAPSULE PO ×3 (09:59→21:30)
[2022-08-20] MEDS: Pravastatin Sodium 20 MG TABLET PO (09:59)
[2022-08-20] MEDS: Cholecalciferol (Vitamin D3) 25 MCG TABLET 50 MCG PO (09:59)
[2022-08-20] MEDS: Magnesium Oxide 400 MG TABLET PO ×2 (09:59→23:06)
[2022-08-20] MEDS: Aspirin Enteric Coated 81 MG TABLET.DR PO (09:59)
[2022-08-20] MEDS: PARoxetine HCL 40 MG TABLET PO (09:59)
[2022-08-20 12:04] LABS: Glucose, Whole Blood 127 mg/dL (60-115)
--- NOTE | 2022-08-20 15:00 | P.PNCA_ITS ---
Subjective Subjective Date of Service: 08/20/22 Interval history: Patient seen examined at bedside. No chest discomfort shortness of breath. Appetite is improving and she is feeling much better after treatment for the urinary tract infection. Blood cultures were positive for Gram-negative rods. Physical Exam Vital Signs: Last Vital Signs Temp 97.9 F 08/20/22 07:22 Pulse 72 08/20/22 07:22 Resp 20 08/20/22 07:22 BP 139/64 08/20/22 07:22 Pulse Ox 97 08/20/22 07:22 O2 Del Method 08/20/22 07:22 BMI result Body Mass Index 28.0 GENERAL APPEARANCE: in no acute distress, pleasant. NECK: no carotid bruit, no jugular venous distention. SKIN: no suspicious lesions, warm and dry. HEART: no murmurs, regular rate and rhythm. LUNGS: clear to auscultation bilaterally. ABDOMEN: soft, nontender. EXTREMITIES: no edema. PERIPHERAL PULSES: equal. NEUROLOGIC: No gross deficits, AAO X 3 Objective Labs and Meds 08/20/22 07:46 08/20/22 07:46 Lab results: Laboratory Results - last 24 hr 08/19/22 08/19/22 08/19/22 17:43 18:26 21:52 WBC RBC Hgb Hct MCV MCH MCHC RDW Plt Count MPV Absolute Nucleated RBC Nucleated RBC % (auto) aPTT Heparin Protocol 59.1 Sodium Potassium Chloride Carbon Dioxide Anion Gap BUN Creatinine Estim Creat Clear Calc Estimated GFR POC Glucose 204 H 116 H Random Glucose Calcium 08/20/22 08/20/22 08/20/22 05:37 07:25 07:46 WBC 20.4 H RBC 3.15 L Hgb 9.0 L Hct 27.5 L MCV 87.3 MCH 28.6 MCHC 32.7 RDW 13.6 Plt Count 253 MPV 11.6 Absolute Nucleated RBC 0.000 Nucleated RBC % (auto) 0.0 aPTT Heparin Protocol Sodium Potassium Chloride Carbon Dioxide Anion Gap BUN Creatinine Estim Creat Clear Calc Estimated GFR POC Glucose 96 109 Random Glucose Calcium 08/20/22 08/20/22 08/20/22 07:46 07:46 11:59 WBC RBC Hgb Hct MCV MCH MCHC RDW Plt Count MPV Absolute Nucleated RBC Nucleated RBC % (auto) aPTT Heparin Protocol 44.7 L D Sodium 141 Potassium 4.5 Chloride 112 H Carbon Dioxide 20 L Anion Gap 14 BUN 24 H Creatinine 1.64 H Estim Creat Clear Calc 34.7 Estimated GFR 30 POC Glucose 127 H Random Glucose 103 Calcium 7.8 L D Progress Note: A&P Assessment and plan (1) Non-ST elevation [place] (NSTEMI): Status: Acute (2) Cardiomyopathy: Status: Acute Plan [age] year female presenting with Gram-negative sepsis and NSTEMI. She was noticed to have apical akinesis on the echocardiogram with differentials of LAD ischemia versus takotsubo cardiomyopathy. Her EKG has evolved into anterola teral T-wave inversions with prolonged QT interval. She has no symptoms currently. I think she likely has Takotsubo Cardiomyopathy. I had a detailed discussion with the patient that Takotsubo Cardiomyopathy is diagnosed by angiography where we showed that there is no coronary artery disease present and has the regional wall motion abnormalities are due to a stress-induced event and not to underlying coronary disease. I explained to her that she has chronic kidney disease and there is some risk of developing kidney injury with angiography. Given lack of symptoms and clinical story more consistent with Takotsubo Cardiomyopathy, we have decided to treat her medically. We will continue hepar in for 48 hours. Once she is stable from the urinary tract infection point of view she can be discharged back home. We will repeat a limited echocardiogram in 4 weeks. If ejection fraction improves then I will do ischemic evaluation with stress testing. On the other hand if ejection fraction continues to be low then would consider diagnostic angiography. We agreed after discussion that it would be worth taking the risk at that stage. Thank you for allowing me to participate in the care of your patient. Please feel free to contact me if you have any questions. Time Spent With Patient Time: Total time managing care of this patient today ____ minutes. Progress Note: Quality Stroke Does the patient have a stroke diagnosis?: No Procedures Date of Service Date of Service: 08/20/22
[2022-08-20 15:09] LABS: PTT Heparin Drip 52.9 SEC (53-77.9)
[2022-08-20] MEDS: Heparin Sodium,Porcine/1/2NS 25,000 UNIT/250 ML IV.SOLN 12.4 UNIT IVCONT (15:18)
[2022-08-20] MEDS: 0.9 % Sodium Chloride Flush 3 ML SYRINGE IVFLUSH (15:31)
[2022-08-20 15:32] VITALS: BP 126/61; PULSE 68; RESP 16; TEMP 36.6; O2SAT 95
--- NOTE | 2022-08-20 15:48 | HO.PM.IMPN ---
Subjective Subjective Date of Service: 08/20/22 Interval History: Feeling better since admission awake alert answering questions appropriately denies chest pain, no palpitation, denies urinary symptoms of urgency frequency, provide history of chronic diarrhea and urinary incontinence wear diapers at night, denies fever, no chills no other acute issues overnight. Review of Systems Review of Systems: Yes all other systems are reviewed and are negative Physical Exam Vital Signs: Vital Signs: Last Vital Signs Temp 97.9 F 08/20/22 15:32 Pulse 68 08/20/22 15:32 Resp 16 08/20/22 15:32 BP 126/61 08/20/22 15:32 Pulse Ox 95 08/20/22 15:32 O2 Del Method 08/20/22 15:32 BMI result Body Mass Index 28.0 Const: Other: General awake alert x3 resting comfortably in no acute distress. Neck supple no JVD. CVS regular rate rhythm, Respiratory lungs clear to auscultation, no respiratory distress, no wheeze, no rhonchi. Gastrointestinal abdomen soft, nontender, bowel sounds audible, no guarding , no rigidity. Extremities no pitting edema. Neuro nonfocal . Skin no rash Appropriate affect Objective Data Active Medications Acetaminophen (Acetaminophen 325 Mg Tablet) 650 mg PO Q6H PRN PRN Reason: Pain, Mild (Pain Scale 1-3) Acetaminophen/Butalbital/Caffeine (Butalb/Acetamin/Caff 50/325/40 Tablet) 1 tab PO ONCE PRN PRN Reason: headache Last Admin: 08/19/22 14:32 Dose: 1 tab Documented By: MARGE Albuterol Sulfate (Albuterol Sulfate 90 Mcg 8 Gm Inhaler) 1 puff INHALE Q6H PRN PRN Reason: bronchospasm Aspirin (Aspirin Enteric Coated 81 Mg Tablet.) 81 mg PO DAILY [facility] Last Admin: 08/20/22 09:59 Dose: 81 mg Documented By: JACQUES Dextrose (Dextrose 50 % 25 Gm/50 Ml Syringe) 25 gm IVPUSH Q15M PRN; Protocol PRN Reason: per Hypoglycemia Standing Ord. Duloxetine HCl (Duloxetine Hcl 20 Mg Capsule.) 20 mg PO DAILY [facility] Last Admin: 08/20/22 09:59 Dose: 20 mg Documented By: JACQUES Glucose (Glucose Gel 15 Gm Gel..Gram.) 15 gm PO Q15M PRN; Protocol PRN Reason: per Hypoglycemia Standing Ord. Heparin Sodium (Porcine) (Heparin Sodium,Porcine 5,000 Unit/Ml Vial) 3,500 unit 40 unit/kg (3500 unit) IVPUSH PROTOCOL BOLUS PRN; Protocol PRN Reason: 40 unit/kg - Heparin Protocol Last Admin: 08/20/22 15:18 Dose: 3,500 unit Documented By: JACQUES Heparin Sodium (Porcine) (Heparin Sodium,Porcine 5,000 Unit/Ml Vial) 7,100 unit 80 unit/kg (7100 unit) IVPUSH PROTOCOL BOLUS PRN; Protocol PRN Reason: 80 unit/kg - Heparin Protocol Heparin Sodium/Sodium Chloride (Heparin Sodium,Porcine/1/2ns) 25,000 unit in 250 mls @ 12.4 mls/hr IVCONT .[id number] [facility]; Protocol Last Titration: 08/20/22 15:18 Dose: 14 units/kg/hr, 12.4 mls/hr Documented By: JACQUES Co-signed By: DELBERT Ceftriaxone Sodium 2 gm/ (Sodium Chloride) 50 mls @ 100 mls/hr IV Q24H [facility] Last Infusion: 08/20/22 00:01 Dose: 0 mls/hr Documented By: DAVID Insulin Human Lispro (Insulin Lispro 100 Unit/Ml 3 Ml Vial) 0 unit SUBCUT QIDACHS [facility]; Protocol Last Admin: 08/20/22 12:05 Dose: Not Given Documented By: JACQUES Non-Admin Reason: No Insulin Coverage Magnesium Oxide (Magnesium Oxide 400 Mg Tablet) 400 mg PO BID [facility] Last Admin: 08/20/22 09:59 Dose: 400 mg Documented By: JACQUES Melatonin (Melatonin 3 Mg Tablet) 6 mg PO BEDTIME PRN PRN Reason: Insomnia Pt Own (Mag-Tab Sr (Tablet)) 2 tab PO BID [facility] Last Admin: 08/20/22 11:04 Dose: 2 tab Documented By: JACQUES Omeprazole (Omeprazole 40 Mg Capsule.) 40 mg PO BID@0630,1630 [facility] Last Admin: 08/20/22 06:18 Dose: 40 mg Documented By: DAVID Ondansetron HCl (Ondansetron Hcl 4 Mg/2 Ml Vial) 4 mg IVPUSH Q8H PRN PRN Reason: Nausea and Vomiting Paroxetine HCl (Paroxetine Hcl 40 Mg Tablet) 40 mg PO DAILY [facility] Last Admin: 08/20/22 09:59 Dose: 40 mg Documented By: JACQUES Pharmacy Consult (Consult Rx Perform Med Rec) 1 each MISCELLANE ONCE PRN PRN Reason: Consult order Pravastatin Sodium (Pravastatin Sodium 20 Mg Tablet) 20 mg PO DAILY [facility] Last Admin: 08/20/22 09:59 Dose: 20 mg Documented By: JACQUES Pregabalin (Pregabalin 100 Mg Capsule) 100 mg PO TID [facility] Last Admin: 08/20/22 15:31 Dose: 100 mg Documented By: JACQUES Sodium Chloride (0.9 % Sodium Chloride Flush 3 Ml Syringe) 3 ml IVFLUSH QSHIFT [facility] Last Admin: 08/20/22 15:31 Dose: 3 ml Documented By: JACQUES Vitamin D (Cholecalciferol (Vitamin D3) 25 Mcg Tablet) 50 mcg PO DAILY [facility] Last Admin: 08/20/22 09:59 Dose: 50 mcg Documented By: JACQUES Labs 08/20/22 07:46 08/20/22 07:46 Labs: Laboratory Results - last 24 hr 08/19/22 08/19/22 08/19/22 17:43 18:26 21:52 MCV MCH MCHC RDW Plt Count MPV Absolute Nucleated RBC Nucleated RBC % (auto) aPTT Heparin Protocol 59.1 Anion Gap Estim Creat Clear Calc Estimated GFR POC Glucose 204 H 116 H Random Glucose Calcium 08/20/22 08/20/22 08/20/22 05:37 07:25 07:46 MCV 87.3 MCH 28.6 MCHC 32.7 RDW 13.6 Plt Count 253 MPV 11.6 Absolute Nucleated RBC 0.000 Nucleated RBC % (auto) 0.0 aPTT Heparin Protocol Anion Gap Estim Creat Clear Calc Estimated GFR POC Glucose 96 109 Random Glucose Calcium 08/20/22 08/20/22 08/20/22 07:46 07:46 11:59 MCV MCH MCHC RDW Plt Count MPV Absolute Nucleated RBC Nucleated RBC % (auto) aPTT Heparin Protocol 44.7 L D Anion Gap 14 Estim Creat Clear Calc 34.7 Estimated GFR 30 POC Glucose 127 H Random Glucose 103 Calcium 7.8 L D 08/20/22 14:47 MCV MCH MCHC RDW Plt Count MPV Absolute Nucleated RBC Nucleated RBC % (auto) aPTT Heparin Protocol 52.9 L Anion Gap Estim Creat Clear Calc Estimated GFR POC Glucose Random Glucose Calcium Microbiology Microbiology Results: Microbiology 08/19/22 00:15 Blood Culture - Preliminary Blood - Venous Gram negative ivania 08/19/22 00:15 Blood Culture - Preliminary Blood - Venous Gram negative ivania 08/19/22 Unknown Urine Culture - Preliminary Urine Catheterized - Cole Catheter Gram negative ivania Assessment and Plan (1) Sepsis: Status: Acute (2) Non-ST elevation [place] (NSTEMI): Status: Acute Plan Patient admitted with acute onset of chills and shivering was chills associated with confusion and significant weakness, in ER patient was noted to be hypotensive with systolic BP of 73/46 , fever of 103.3, tachycardia, tachypnea, lactic acidosis, UA significantly positive, elevated troponin, chest x-ray showed retrocardiac left basilar opacity suspected to be due to large hiatal hernia patient treated in the emergency room with IV fluids, IV antibiotics and IV heparin. Severe sepsis due to UTI continue IV ceftriaxone day 2, DC IV fluids, WBC trending down, blood culture and urine culture grew Gram-negative rods. Acute toxic metabolic encephalopathy resolved was likely due to UTI and sepsis Non ST-elevation [place] likely secondary due to acute infection, continue IV heparin x 48h, aspirin, statins , resume beta blockers since blood pressure improved echocardiogram showed EF 55-60%, akinetic apex,LDL 64, repeat EKG showed anterolateral T-wave inversion and prolonged QT Seen by Dr. Ledesma he feels EKG changes and echo is concerning for takotsubo disease he recommend medical management and repeat echocardiogram in 4 weeks Hypertension blood pressure improved resume beta-blockers metoprolol XL 25 mg daily, hold Aldactone Aif-hklokqb-xaoinhhlk diabetes mellitus continue insulin sliding scale, blood sugars stable More disorder continue paroxetine , Cymbalta and Lyrica DVT prophylaxis on heparin Code status full code Patient will need continued inpatient hospitalization for management of Gram-negative bacteremia and non ST-elevation [place] on IV heparin and IV antibiotics. Time Spent With Patient Time: Total time managing care of this patient today ____ minutes. Quality Stroke Does the patient have a stroke diagnosis?: No VTE Prior VTE?: No VTE Risk Level:: Medical - moderate - high VTE Device Contraindication: Treatment Not Indicated VTE Drug Contraindication: N/A - Med Ordered
[2022-08-20 16:32] LABS: Glucose, Whole Blood 117 mg/dL (60-115)
[2022-08-20 20:00] VITALS: BP 142/61; PULSE 82; RESP 18; TEMP 37.1; O2SAT 95
[2022-08-20] MEDS: Insulin Lispro 100 UNIT/ML 3 ML VIAL SUBCUT (21:40)
[2022-08-20 21:41] LABS: Glucose, Whole Blood 197 mg/dL (60-115)
[2022-08-20 22:00] LABS: PTT Heparin Drip 63.4 SEC (53-77.9)
[2022-08-20] MEDS: cefTRIAXone sodium 2 GM in 0.9 % Sodium Chloride 50 ML IV (22:58)
[2022-08-20 23:12] VITALS: BP 129/61; PULSE 74; RESP 20; TEMP 36.7; O2SAT 95
--- NOTE | 2022-08-21 | ECG_ITS ---
Test Reason : t wave abnormalitys Blood Pressure : / mmHG Vent. Rate : 065 BPM Atrial Rate : 065 BPM P-R Int : 196 ms QRS Dur : 128 ms QT Int : 476 ms P-R-T Axes : 032 -85 -61 degrees QTc Int : 495 ms Normal sinus rhythm Right bundle branch block Left anterior fascicular block Bifascicular block T wave inversions - anterolateral ischemia Abnormal ECG When compared with ECG of 19-AUG-2022 14:41, IA interval has decreased QT has shortened Referred By: Peyton Harrison Electronically Signed By:Michael Ledesma
--- NOTE | 2022-08-21 00:20 | PC.NURSE ---
Patient reported that at home she takes magnesium supplement 4 tabs twice a day
[2022-08-21 00:57] LABS: Glucose, Whole Blood 142 mg/dL (60-115)
[2022-08-21] MEDS: 0.9 % Sodium Chloride Flush 3 ML SYRINGE IVFLUSH ×3 (01:03→17:11)
[2022-08-21 03:28] VITALS: BP 139/63; PULSE 70; RESP 18; TEMP 36.2; O2SAT 95
[2022-08-21 03:57] LABS: PTT Heparin Drip 53.5 SEC (53-77.9)
[2022-08-21] MEDS: Omeprazole 40 MG CAPSULE.DR PO ×2 (05:40→17:10)
[2022-08-21 06:43] LABS: PTT Heparin Drip 61.7 SEC (53-77.9)
[2022-08-21 07:01] VITALS: BP 144/65; PULSE 70; RESP 20; TEMP 36.3; O2SAT 95
[2022-08-21 08:06] LABS: Glucose, Whole Blood 118 mg/dL (60-115)
[2022-08-21] MEDS: DULoxetine HCl 20 MG CAPSULE.DR PO (10:55)
[2022-08-21] MEDS: Metoprolol Succinate ER 25 MG TAB.ER.24H PO (10:55)
[2022-08-21] MEDS: Pregabalin 100 MG CAPSULE PO ×3 (10:55→20:53)
[2022-08-21] MEDS: PARoxetine HCL 40 MG TABLET PO (10:56)
[2022-08-21] MEDS: Aspirin Enteric Coated 81 MG TABLET.DR PO (10:56)
[2022-08-21] MEDS: Cholecalciferol (Vitamin D3) 25 MCG TABLET 50 MCG PO (10:56)
[2022-08-21 11:37] LABS: Glucose, Whole Blood 162 mg/dL (60-115)
[2022-08-21] MEDS: Pravastatin Sodium 20 MG TABLET PO (13:48)
[2022-08-21] MEDS: Insulin Lispro 100 UNIT/ML 3 ML VIAL SUBCUT ×2 (13:49→20:51)
--- NOTE | 2022-08-21 14:06 | HO.PM.IMPN ---
Subjective Subjective Date of Service: 08/21/22 Interval History: Being followed for non ST-elevation [place] and Klebsiella pneumonia bacteremia, patient offers no acute complaints of chest pain, no shortness of breath, no nausea, no vomiting, no abdominal pain tolerating diet, no diarrhea no other acute issues overnight Review of Systems Review of Systems: Yes all other systems are reviewed and are negative Physical Exam Vital Signs: Vital Signs: Last Vital Signs Temp 97.4 F 08/21/22 07:01 Pulse 70 08/21/22 07:01 Resp 20 08/21/22 07:01 BP 144/65 H 08/21/22 07:01 Pulse Ox 95 08/21/22 07:01 O2 Del Method 08/21/22 07:01 BMI result Body Mass Index 28.0 Const: Other: General awake alert x3 resting comfortably in no acute distress.? Neck? supple no JVD. CVS? regular rate rhythm, Respiratory lungs clear to auscultation, no respiratory distress, no wheeze, no rhonchi. Gastrointestinal abdomen soft, nontender, bowel sounds audible, no guarding , no rigidity. Extremities no pitting edema. Neuro nonfocal . Skin no rash Appropriate affect Objective Data Active Medications Acetaminophen (Acetaminophen 325 Mg Tablet) 650 mg PO Q6H PRN PRN Reason: Pain, Mild (Pain Scale 1-3) Acetaminophen/Butalbital/Caffeine (Butalb/Acetamin/Caff 50/325/40 Tablet) 1 tab PO ONCE PRN PRN Reason: headache Last Admin: 08/19/22 14:32 Dose: 1 tab Documented By: MARGE Albuterol Sulfate (Albuterol Sulfate 90 Mcg 8 Gm Inhaler) 1 puff INHALE Q6H PRN PRN Reason: bronchospasm Aspirin (Aspirin Enteric Coated 81 Mg Tablet.) 81 mg PO DAILY [facility] Last Admin: 08/21/22 10:56 Dose: 81 mg Documented By: MADISON Dextrose (Dextrose 50 % 25 Gm/50 Ml Syringe) 25 gm IVPUSH Q15M PRN; Protocol PRN Reason: per Hypoglycemia Standing Ord. Duloxetine HCl (Duloxetine Hcl 20 Mg Capsule.) 20 mg PO DAILY [facility] Last Admin: 08/21/22 10:55 Dose: 20 mg Documented By: MADISON Glucose (Glucose Gel 15 Gm Gel..Gram.) 15 gm PO Q15M PRN; Protocol PRN Reason: per Hypoglycemia Standing Ord. Heparin Sodium (Porcine) (Heparin Sodium,Porcine 5,000 Unit/Ml Vial) 3,500 unit 40 unit/kg (3500 unit) IVPUSH PROTOCOL BOLUS PRN; Protocol PRN Reason: 40 unit/kg - Heparin Protocol Last Admin: 08/20/22 15:18 Dose: 3,500 unit Documented By: JACQUES Heparin Sodium (Porcine) (Heparin Sodium,Porcine 5,000 Unit/Ml Vial) 7,100 unit 80 unit/kg (7100 unit) IVPUSH PROTOCOL BOLUS PRN; Protocol PRN Reason: 80 unit/kg - Heparin Protocol Heparin Sodium/Sodium Chloride (Heparin Sodium,Porcine/1/2ns) 25,000 unit in 250 mls @ 12.4 mls/hr IVCONT .[id number] [facility]; Protocol Last Titration: 08/20/22 15:18 Dose: 14 units/kg/hr, 12.4 mls/hr Documented By: JACQUES Co-signed By: DELBERT Ceftriaxone Sodium 2 gm/ (Sodium Chloride) 50 mls @ 100 mls/hr IV Q24H [facility] Last Infusion: 08/20/22 23:37 Dose: 0 mls/hr Documented By: BLAYNE Insulin Human Lispro (Insulin Lispro 100 Unit/Ml 3 Ml Vial) 0 unit SUBCUT QIDACHS [facility]; Protocol Last Admin: 08/21/22 13:49 Dose: 2 unit Documented By: MADISON Magnesium Oxide (Magnesium Oxide 400 Mg Tablet) 400 mg PO BID [facility] Last Admin: 08/21/22 10:57 Dose: Not Given Documented By: MADISON Non-Admin Reason: Patient Refused Melatonin (Melatonin 3 Mg Tablet) 6 mg PO BEDTIME PRN PRN Reason: Insomnia Metoprolol Succinate (Metoprolol Succinate Er 25 Mg Tab.Er.24h) 25 mg PO DAILY [facility]; Protocol Last Admin: 08/21/22 10:55 Dose: 25 mg Documented By: MADISON Pt Own (Mag-Tab Sr (Tablet)) 2 tab PO BID [facility] Last Admin: 08/21/22 11:01 Dose: 2 tab Documented By: MADISON Omeprazole (Omeprazole 40 Mg Capsule.Dr) 40 mg PO BID@0630,1630 [facility] Last Admin: 08/21/22 05:40 Dose: 40 mg Documented By: ЕКАТЕРИНА Ondansetron HCl (Ondansetron Hcl 4 Mg/2 Ml Vial) 4 mg IVPUSH Q8H PRN PRN Reason: Nausea and Vomiting Paroxetine HCl (Paroxetine Hcl 40 Mg Tablet) 40 mg PO DAILY [facility] Last Admin: 08/21/22 10:56 Dose: 40 mg Documented By: MADISON Pharmacy Consult (Consult Rx Perform Med Rec) 1 each MISCELLANE ONCE PRN PRN Reason: Consult order Pravastatin Sodium (Pravastatin Sodium 20 Mg Tablet) 20 mg PO DAILY [facility] Last Admin: 08/21/22 13:48 Dose: 20 mg Documented By: MADISON Pregabalin (Pregabalin 100 Mg Capsule) 100 mg PO TID [facility] Last Admin: 08/21/22 10:55 Dose: 100 mg Documented By: MADISON Sodium Chloride (0.9 % Sodium Chloride Flush 3 Ml Syringe) 3 ml IVFLUSH QSHIFT [facility] Last Admin: 08/21/22 10:56 Dose: 3 ml Documented By: MADISON Vitamin D (Cholecalciferol (Vitamin D3) 25 Mcg Tablet) 50 mcg PO DAILY [facility] Last Admin: 08/21/22 10:56 Dose: 50 mcg Documented By: MADISON Labs 08/20/22 07:46 08/20/22 07:46 Labs: Laboratory Results - last 24 hr 08/20/22 08/20/22 08/20/22 14:47 16:24 21:33 aPTT Heparin Protocol 52.9 L 63.4 POC Glucose 117 H 08/20/22 08/21/22 08/21/22 21:34 00:48 03:32 aPTT Heparin Protocol 53.5 POC Glucose 197 H 142 H 08/21/22 08/21/22 08/21/22 05:48 07:02 11:08 aPTT Heparin Protocol 61.7 POC Glucose 118 H 162 H Microbiology Microbiology Results: Microbiology 08/19/22 00:15 Blood Culture - Preliminary Blood - Venous Klebsiella pneumoniae 08/19/22 00:15 Blood Culture - Preliminary Blood - Venous Klebsiella pneumoniae 08/19/22 Unknown Urine Culture - Final Urine Catheterized - Cole Catheter Klebsiella pneumoniae Assessment and Plan (1) Sepsis: Status: Acute (2) Non-ST elevation [place] (NSTEMI): Status: Acute Plan Patient admitted with acute onset of chills and shivering was chills associated with confusion and significant weakness, in ER patient was noted to be hypotensive with systolic BP of 73/46 , fever of 103.3, tachycardia, tachypnea, lactic acidosis, UA significantly positive, elevated troponin, chest x-ray showed retrocardiac left basilar opacity suspected to be due to large hiatal hernia patient treated in the emergency room with IV fluids, IV antibiotics and IV heparin. Severe sepsis due to UTI resolved,on IV ceftriaxone day 3, WBC trending down, blood culture and urine culture grew Klebsiella pneumoniae ESBL positive, resistant to ceftriaxone sensitive to ertapenem and gentamicin Will DC ceftriaxone and place patient on ertapenem Acute toxic metabolic encephalopathy resolved was likely due to UTI and sepsis Non ST-elevation [place] likely secondary due to acute infection, dc IV heparin x 48h, continue aspirin, statins , beta blockers echocardiogram showed EF 55-60%, akinetic apex,LDL 64, repeat EKG showed anterolateral T-wave inversion and prolonged QT Seen by Dr. Ledesma he feels EKG changes and echo is concerning for takotsubo disease he recommend medical management and repeat echocardiogram in 4 weeks Hypertension blood pressure improved on metoprolol XL 25 mg daily, Aldactone on hold Ozy-jvephlh-stmyueocb diabetes mellitus continue insulin sliding scale, blood sugars stable More disorder continue paroxetine , Cymbalta and Lyrica DVT prophylaxis will place on subQ Lovenox Code status full code Patient will need continued inpatient hospitalization for management of bacteremia and non ST-elevation [place] on IV antibiotics. Time Spent With Patient Time: Total time managing care of this patient today ____ minutes. Quality Stroke Does the patient have a stroke diagnosis?: No VTE Prior VTE?: No VTE Risk Level:: Medical - moderate - high VTE Device Contraindication: Treatment Not Indicated VTE Drug Contraindication: N/A - Med Ordered
[2022-08-21 15:53] VITALS: BP 142/69; PULSE 67; RESP 19; TEMP 36.7; O2SAT 95
[2022-08-21 15:56] LABS: Glucose, Whole Blood 96 mg/dL (60-115)
[2022-08-21] MEDS: Heparin Sodium,Porcine 5,000 UNIT/ML VIAL 5000 UNIT SUBCUT (17:10)
[2022-08-21 19:24] LABS: Glucose, Whole Blood 161 mg/dL (60-115)
[2022-08-21 19:27] VITALS: BP 162/67; PULSE 70; RESP 19; TEMP 36.2; O2SAT 97
[2022-08-21] MEDS: Melatonin 3 MG TABLET 6 MG PO (21:02)
[2022-08-21] MEDS: Acetaminophen 325 MG TABLET 650 MG PO (21:02)
[2022-08-21 23:25] VITALS: BP 144/56; PULSE 63; RESP 18; TEMP 36.2; O2SAT 97
[2022-08-22] MEDS: 0.9 % Sodium Chloride Flush 3 ML SYRINGE IVFLUSH ×3 (00:19→18:03)
[2022-08-22 04:00] VITALS: BP 136/61; PULSE 60; RESP 18; TEMP 36.1; O2SAT 96
[2022-08-22] MEDS: Heparin Sodium,Porcine 5,000 UNIT/ML VIAL 5000 UNIT SUBCUT ×2 (04:55→18:02)
[2022-08-22] MEDS: Omeprazole 40 MG CAPSULE.DR PO ×2 (04:55→18:03)
[2022-08-22 07:17] VITALS: BP 134/71; PULSE 61; RESP 20; TEMP 36.4; O2SAT 93
[2022-08-22 07:29] LABS: Hematocrit 28.2 % (37.0-47.0); Hemoglobin 9.3 g/dl (12.0-16.0); Mean Corpuscular Hemoglobin 28.4 pg (27.0-33.0); Mean Platelet Volume 10.9 fL (9.4-12.3); Platelet Count 301 X10*3/uL (160-400); Red Blood Count 3.28 X10*6/uL (4.20-5.50); Red Cell Distribution Width 13.4 % (11.0-16.0); White Blood Count 7.8 X10*3/uL (4.8-10.8)
[2022-08-22 07:44] LABS: PTT Heparin Drip 31.6 SEC (53-77.9)
[2022-08-22] MEDS: DULoxetine HCl 20 MG CAPSULE.DR PO (07:45)
[2022-08-22] MEDS: Pravastatin Sodium 20 MG TABLET PO (07:46)
[2022-08-22] MEDS: Metoprolol Succinate ER 25 MG TAB.ER.24H PO (07:46)
[2022-08-22] MEDS: Aspirin Enteric Coated 81 MG TABLET.DR PO (07:46)
[2022-08-22] MEDS: PARoxetine HCL 40 MG TABLET PO (07:46)
[2022-08-22] MEDS: Pregabalin 100 MG CAPSULE PO ×3 (07:46→20:56)
[2022-08-22] MEDS: Cholecalciferol (Vitamin D3) 25 MCG TABLET 50 MCG PO (07:47)
[2022-08-22 07:53] LABS: Anion Gap 16 (12-20); Blood Urea Nitrogen 23 mg/dL (9-16); Calcium 8.7 mg/dL (8.4-10.2); Carbon Dioxide 20 mmol/L (22-29); Chloride 110 mmol/L (96-108); Creatinine Clr Calc Pharmacy 38.9; Estimated Glomerular Filt Rate 35; Glucose Random 91 mg/dL (60-115); Potassium 4.9 mmol/L (3.3-5.1); Sodium 141 mmol/L (135-145)
[2022-08-22 07:53] LABS: Glucose, Whole Blood 107 mg/dL (60-115)
[2022-08-22 11:39] LABS: Glucose, Whole Blood 195 mg/dL (60-115)
--- NOTE | 2022-08-22 12:32 | MHC.CM.PN ---
per rounds pt may need iv antibiotic and a picc line no dc date at this time
[2022-08-22] MEDS: Insulin Lispro 100 UNIT/ML 3 ML VIAL SUBCUT (14:09)
--- NOTE | 2022-08-22 14:15 | P.PNIM_ITS ---
Subjective Subjective Date of Service: 08/22/22 Interval History: Offers no acute complaints resting comfortably no overnight events, no fevers, no chills tolerating diet with no nausea, no vomiting, no abdominal pain, no urinary symptoms has history of bowel and bladder incontinence he. Review of Systems Review of Systems: Yes all other systems are reviewed and are negative Physical Exam Vital Signs: Vital Signs: Last Vital Signs Temp 97.5 F 08/22/22 07:17 Pulse 61 08/22/22 07:17 Resp 20 08/22/22 07:17 BP 134/71 08/22/22 07:17 Pulse Ox 93 08/22/22 07:17 O2 Del Method 08/22/22 07:17 BMI result Body Mass Index 28.0 Const: Other: General awake alert x3 resting comfortably in no acute distress.? Neck? supple no JVD. CVS? regular rate rhythm, Respiratory lungs clear to auscultation, no respiratory distress, no wheeze, no rhonchi. Gastrointestinal abdomen soft, nontender, bowel sounds audible, no guarding , no rigidity. Extremities no pitting edema. Neuro nonfocal . Skin no rash Appropriate affect Objective Data Active Medications Acetaminophen (Acetaminophen 325 Mg Tablet) 650 mg PO Q6H PRN PRN Reason: Pain, Mild (Pain Scale 1-3) Last Admin: 08/21/22 21:02 Dose: 650 mg Documented By: TUMASY Acetaminophen/Butalbital/Caffeine (Butalb/Acetamin/Caff 50/325/40 Tablet) 1 tab PO ONCE PRN PRN Reason: headache Last Admin: 08/19/22 14:32 Dose: 1 tab Documented By: MARGE Albuterol Sulfate (Albuterol Sulfate 90 Mcg 8 Gm Inhaler) 1 puff INHALE Q6H PRN PRN Reason: bronchospasm Aspirin (Aspirin Enteric Coated 81 Mg Tablet.) 81 mg PO DAILY [facility] Last Admin: 08/22/22 07:46 Dose: 81 mg Documented By: MADISON Dextrose (Dextrose 50 % 25 Gm/50 Ml Syringe) 25 gm IVPUSH Q15M PRN; Protocol PRN Reason: per Hypoglycemia Standing Ord. Duloxetine HCl (Duloxetine Hcl 20 Mg Capsule.) 20 mg PO DAILY [facility] Last Admin: 08/22/22 07:45 Dose: 20 mg Documented By: MADISON Glucose (Glucose Gel 15 Gm Gel..Gram.) 15 gm PO Q15M PRN; Protocol PRN Reason: per Hypoglycemia Standing Ord. Heparin Sodium (Porcine) (Heparin Sodium,Porcine 5,000 Unit/Ml Vial) 5,000 unit SUBCUT Q12H [facility] Last Admin: 08/22/22 04:55 Dose: 5,000 unit Documented By: CARLYN Meropenem 1 gm/ Sodium (Chloride) 100 mls @ 200 mls/hr IV Q12H [facility] Last Infusion: 08/22/22 05:28 Dose: 200 mls/hr Documented By: CARLYN Insulin Human Lispro (Insulin Lispro 100 Unit/Ml 3 Ml Vial) 0 unit SUBCUT QIDACHS [facility]; Protocol Last Admin: 08/22/22 14:09 Dose: 2 unit Documented By: MADISON Melatonin (Melatonin 3 Mg Tablet) 6 mg PO BEDTIME PRN PRN Reason: Insomnia Last Admin: 08/21/22 21:02 Dose: 6 mg Documented By: OBDULIA Metoprolol Succinate (Metoprolol Succinate Er 25 Mg Tab.Er.24h) 25 mg PO DAILY [facility]; Protocol Last Admin: 08/22/22 07:46 Dose: 25 mg Documented By: MADISON Non-Formulary Medication (Pt Own (Mag-Tab Sr)) 4 tab PO BID [facility] Last Admin: 08/22/22 07:51 Dose: 4 tab Documented By: MADISON Omeprazole (Omeprazole 40 Mg Capsule.Dr) 40 mg PO BID@0630,1630 [facility] Last Admin: 08/22/22 04:55 Dose: 40 mg Documented By: CARLYN Ondansetron HCl (Ondansetron Hcl 4 Mg/2 Ml Vial) 4 mg IVPUSH Q8H PRN PRN Reason: Nausea and Vomiting Paroxetine HCl (Paroxetine Hcl 40 Mg Tablet) 40 mg PO DAILY [facility] Last Admin: 08/22/22 07:46 Dose: 40 mg Documented By: MADISON Pharmacy Consult (Consult Rx Perform Med Rec) 1 each MISCELLANE ONCE PRN PRN Reason: Consult order Pravastatin Sodium (Pravastatin Sodium 20 Mg Tablet) 20 mg PO DAILY [facility] Last Admin: 08/22/22 07:46 Dose: 20 mg Documented By: MADISON Pregabalin (Pregabalin 100 Mg Capsule) 100 mg PO TID [facility] Last Admin: 08/22/22 14:09 Dose: 100 mg Documented By: MADISON Sodium Chloride (0.9 % Sodium Chloride Flush 3 Ml Syringe) 3 ml IVFLUSH QSHIFT [facility] Last Admin: 08/22/22 07:47 Dose: 3 ml Documented By: MADISON Vitamin D (Cholecalciferol (Vitamin D3) 25 Mcg Tablet) 50 mcg PO DAILY [facility] Last Admin: 08/22/22 07:47 Dose: 50 mcg Documented By: MADISON Labs 08/22/22 06:22 08/22/22 06:22 Labs: Laboratory Results - last 24 hr 08/21/22 08/21/22 08/22/22 15:10 19:20 06:22 MCV 86.0 MCH 28.4 MCHC 33.0 RDW 13.4 Plt Count 301 MPV 10.9 Absolute Nucleated RBC 0.000 Nucleated RBC % (auto) 0.0 aPTT Heparin Protocol Anion Gap Estim Creat Clear Calc Estimated GFR POC Glucose 96 161 H Random Glucose Calcium 08/22/22 08/22/22 08/22/22 06:22 06:22 07:20 MCV MCH MCHC RDW Plt Count MPV Absolute Nucleated RBC Nucleated RBC % (auto) aPTT Heparin Protocol 31.6 L D Anion Gap 16 Estim Creat Clear Calc 38.9 Estimated GFR 35 POC Glucose 107 Random Glucose 91 Calcium 8.7 D 08/22/22 11:08 MCV MCH MCHC RDW Plt Count MPV Absolute Nucleated RBC Nucleated RBC % (auto) aPTT Heparin Protocol Anion Gap Estim Creat Clear Calc Estimated GFR POC Glucose 195 H Random Glucose Calcium Microbiology Microbiology Results: Microbiology 08/19/22 00:15 Blood Culture - Final Blood - Venous Klebsiella pneumoniae 08/19/22 00:15 Blood Culture - Preliminary Blood - Venous Klebsiella pneumoniae Assessment and Plan (1) Sepsis: Status: Acute (2) Non-ST elevation [place] (NSTEMI): Status: Acute Plan Patient admitted with acute onset of chills and shivering was chills associated with confusion and significant weakness, in ER patient was noted to be hypotensive with systolic BP of 73/46 , fever of 103.3, tachycardia, tachypnea, lactic acidosis, UA significantly positive, elevated troponin, chest x-ray showed retrocardiac left basilar opacity suspected to be due to large hiatal hernia patient treated in the emergency room with IV fluids, IV antibiotics and IV heparin. Severe sepsis due to UTI resolved No recurrent fevers WBC normalized, blood culture and urine culture grew Klebsiella pneumoniae ESBL positive, resistant to ceftriaxone sensitive to ertapenem and gentamicin Status post IV ceftriaxone time 3 days now on IV meropenem day 2 Case discussed with ID she recommend IV ertapenem times [address] midline, spoke with clinical social worker regarding dispo plan Acute toxic metabolic encephalopathy resolved was likely due to UTI and sepsis. Non ST-elevation [place] likely secondary due to acute infection, s/p IV heparin x 48h, continue aspirin, statins ,and beta blockers echocardiogram showed EF 55-60%, akinetic apex,LDL 64, repeat EKG showed anterolateral T-wave inversion and prolonged QT Seen by Dr. Ledesma he feels EKG changes and echo is concerning for takotsubo disease he recommend medical management and repeat outpatient echocardiogram in 4 weeks Hypertension blood pressure improved on metoprolol XL 25 mg daily, Aldactone on hold Gjf-ptrrirp-ucidkglfe diabetes mellitus continue insulin sliding scale, blood sugars stable More disorder continue paroxetine , Cymbalta and Lyrica DVT prophylaxis on subQ Lovenox Code status full code Patient will need continued inpatient hospitalization for management of skip teremia and non ST-elevation [place] on IV antibiotics./family wishes rehab clinical social worker arranging for rehab facility to finish course of antibiotics. Time Spent With Patient Time: Total time managing care of this patient today ____ minutes. Quality Stroke Does the patient have a stroke diagnosis?: No VTE Prior VTE?: No VTE Risk Level:: Medical - moderate - high VTE Device Contraindication: Treatment Not Indicated VTE Drug Contraindication: N/A - Med Ordered
[2022-08-22] MEDS: Acetaminophen 325 MG TABLET 650 MG PO (14:24)
--- NOTE | 2022-08-22 14:24 | MHC.CM.PN ---
spoke with keily pts dgtyer/hcp explined that pt getting a midline and will need 10 days antibiotics home vs str she is leaning towards snf referrals made they do no want [facility] care
--- NOTE | 2022-08-22 15:00 | MHC.CM.PN ---
family to bring in proxy and has definitely deceied on str
[2022-08-22 15:05] VITALS: BP 134/71; PULSE 61; O2SAT 93
[2022-08-22 15:33] VITALS: BP 111/71; PULSE 67; RESP 19; TEMP 36.4; O2SAT 94
[2022-08-22 15:35] LABS: Glucose, Whole Blood 111 mg/dL (60-115)
--- NOTE | 2022-08-22 15:52 | W.PM.IDCN ---
History of Present Illness Data of Consult Service Date: 08/21/22 Requesting physician: Peyton Harrison Primary Care Provider: Mitul Garcia [facility] HPI Reason for consult: bacteremia,sepsis She presents with confusion and lethargy. She has urinary incontinence and diarrhea. She has Klebsiella pneumonia ESBL blood and urine sensitive to ertapenem only Review of Systems Review of Systems: Yes all other systems are reviewed and are negative [facility] Past Medical History Medical History Adult BMI 30.0-30.9 kg/sq m Age-related osteoporosis without current pathological fracture Anemia B12 deficiency Breast pain, left Celiac disease Chronic kidney disease, stage 3 CKD (chronic kidney disease) Decreased pedal pulses Diabetes mellitus with complication Dyslipidemia Essential hypertension GERD (gastroesophageal reflux disease) Gitelman disease Gout Hiatal hernia IBS (irritable bowel syndrome) Neuropathy Obesity (BMI 30-39.9) On beta jody at home GOPAL on CPAP Osteoarthritis Proteinuria Restrictive lung disease Retinopathy Right rotator cuff tear Seizures 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 Mother Cancer Diabetes Daughter Substance use disorder Mental health disorder Family history: reviewed and not pertinent Surgical History Surgical History History of back surgery History of carpal tunnel surgery of right wrist History of left shoulder replacement History of revision of total replacement of right hip joint History of total left knee replacement Hx of colonoscopy Hx of fracture of fibula Social History Social History Household Members: Spouse and Children Household Members Other:: 2 daughter and their children Housing: House Are you a primary day care director to a significant other at home: No Do you presently have visiting nurse or other home services: Yes (PT/OT) Alcohol intake: unknown Patient Tobacco Use Status: Former Tobacco user Tobacco use type: Cigarette Years Smoked: 1963 e-Cigarette/Vaping Use: Never Used Second Hand Smoke Exposure: Yes service: No Current occupational status: retired Cognitive needs: No Hearing needs: No Vision needs: Yes Meds Allergies Allergy/AdvReac Type Severity Reaction Status Date / Time sulfamethoxazole Allergy Unknown UNKNOWN Verified 06/17/22 11:25 [From BACTRIM] trimethoprim [From BACTRIM] Allergy Unknown UNKNOWN Verified 06/17/22 11:25 adhesive tape Allergy Blister Verified 08/21/22 09:02 from adhesive bandages and rash from plastic tape phenytoin [From Dilantin] Allergy Unknown Verified 08/21/22 09:00 Active Medications: Current Medications Acetaminophen (Acetaminophen 325 Mg Tablet) 650 mg PO Q6H PRN PRN Reason: Pain, Mild (Pain Scale 1-3) Last Admin: 08/22/22 14:24 Dose: 650 mg Acetaminophen/Butalbital/Caffeine (Butalb/Acetamin/Caff 50/325/40 Tablet) 1 tab PO ONCE PRN PRN Reason: headache Last Admin: 08/19/22 14:32 Dose: 1 tab Albuterol Sulfate (Albuterol Sulfate 90 Mcg 8 Gm Inhaler) 1 puff INHALE Q6H PRN PRN Reason: bronchospasm Aspirin (Aspirin Enteric Coated 81 Mg Tablet.) 81 mg PO DAILY [facility] Last Admin: 08/22/22 07:46 Dose: 81 mg Dextrose (Dextrose 50 % 25 Gm/50 Ml Syringe) 25 gm IVPUSH Q15M PRN; Protocol PRN Reason: per Hypoglycemia Standing Ord. Duloxetine HCl (Duloxetine Hcl 20 Mg Capsule.) 20 mg PO DAILY [facility] Last Admin: 08/22/22 07:45 Dose: 20 mg Glucose (Glucose Gel 15 Gm Gel..Gram.) 15 gm PO Q15M PRN; Protocol PRN Reason: per Hypoglycemia Standing Ord. Heparin Sodium (Porcine) (Heparin Sodium,Porcine 5,000 Unit/Ml Vial) 5,000 unit SUBCUT Q12H [facility] Last Admin: 08/22/22 04:55 Dose: 5,000 unit Meropenem 1 gm/ Sodium (Chloride) 100 mls @ 200 mls/hr IV Q12H [facility] Last Infusion: 08/22/22 05:28 Dose: Infused Insulin Human Lispro (Insulin Lispro 100 Unit/Ml 3 Ml Vial) 0 unit SUBCUT QIDACHS [facility]; Protocol Last Admin: 08/22/22 14:09 Dose: 2 unit Melatonin (Melatonin 3 Mg Tablet) 6 mg PO BEDTIME PRN PRN Reason: Insomnia Last Admin: 08/21/22 21:02 Dose: 6 mg Metoprolol Succinate (Metoprolol Succinate Er 25 Mg Tab.Er.24h) 25 mg PO DAILY [facility]; Protocol Last Admin: 08/22/22 07:46 Dose: 25 mg Non-Formulary Medication (Pt Own (Mag-Tab Sr)) 4 tab PO BID [facility] Last Admin: 08/22/22 07:51 Dose: 4 tab Omeprazole (Omeprazole 40 Mg Capsule.Dr) 40 mg PO BID@0630,1630 [facility] Last Admin: 08/22/22 04:55 Dose: 40 mg Ondansetron HCl (Ondansetron Hcl 4 Mg/2 Ml Vial) 4 mg IVPUSH Q8H PRN PRN Reason: Nausea and Vomiting Paroxetine HCl (Paroxetine Hcl 40 Mg Tablet) 40 mg PO DAILY [facility] Last Admin: 08/22/22 07:46 Dose: 40 mg Pharmacy Consult (Consult Rx Perform Med Rec) 1 each MISCELLANE ONCE PRN PRN Reason: Consult order Pravastatin Sodium (Pravastatin Sodium 20 Mg Tablet) 20 mg PO DAILY [facility] Last Admin: 08/22/22 07:46 Dose: 20 mg Pregabalin (Pregabalin 100 Mg Capsule) 100 mg PO TID [facility] Last Admin: 08/22/22 14:09 Dose: 100 mg Sodium Chloride (0.9 % Sodium Chloride Flush 3 Ml Syringe) 3 ml IVFLUSH QSHIFT [facility] Last Admin: 08/22/22 07:47 Dose: 3 ml Vitamin D (Cholecalciferol (Vitamin D3) 25 Mcg Tablet) 50 mcg PO DAILY [facility] Last Admin: 08/22/22 07:47 Dose: 50 mcg Home Medications Medication Instructions Recorded Confirmed Last Taken Type blood sugar diagnostic #10 ea 05/17/20 05/27/22 Unknown History lancets 33 gauge #100 ea 05/17/20 05/27/22 Unknown History duloxetine 20 mg capsule,delayed 20 mg PO DAILY 05/08/21 08/19/22 07/02/21 07:10 History release magnesium L-lactate 84 mg 336 mg PO BID 08/19/22 08/20/22 Unknown History tablet,extended release pregabalin 100 mg capsule 1 cap PO TID 08/19/22 08/19/22 Unknown History Physical Exam Vital Signs: Vital Signs: Last Vital Signs Temp 97.5 F 08/22/22 15:33 Pulse 67 08/22/22 15:33 Resp 19 08/22/22 15:33 BP 111/71 08/22/22 15:33 Pulse Ox 94 08/22/22 15:33 O2 Del Method 08/22/22 15:33 BMI result Body Mass Index 28.0 Const: General: cooperative HEENT: Head: Yes normal to inspection Face and sinus: Yes normal facial exam Mouth: Normal oral and palatal mucosa present Teeth and gingiva: dentition normal Eyes: General: appearance normal, both eyes and all related structures Pupils: Equal, round and reactive pupils present Resp: Effort & Inspection: normal respiratory effort Cardio: Rate: regular rate Rhythm: regular rhythm GI: Palpation (GI): Soft to palpation and nontender : General: Yes no CVA tenderness Back/Spine/Pelvis: Back: no CVA tenderness Skin: General skin exam: no rashes or lesions noted Neuro: General: moves all extremities Cranial nerves: Yes Equal, round and reactive pupils present Extrem: General: Yes normal to inspection Psych: Appearance: grossly normal Results Labs 08/22/22 06:22 08/22/22 06:22 Labs: Short CBC 08/22/22 Range/Units 06:22 WBC 7.8 (4.8-10.8) X10*3/uL Hgb 9.3 L (12.0-16.0) g/dl Hct 28.2 L (37.0-47.0) % Plt Count 301 (160-400) X10*3/uL BMP 08/22/22 06:22 Sodium 141 Potassium 4.9 Chloride 110 H Carbon Dioxide 20 L BUN 23 H Creatinine 1.46 H Calcium 8.7 D Microbiology Microbiology Results: Microbiology 08/19/22 00:15 Blood - Venous Blood Culture - Final Klebsiella pneumoniae 08/19/22 00:15 Blood - Venous Blood Culture - Preliminary Klebsiella pneumoniae 08/19/22 Unknown Urine Catheterized - Cole Catheter Urine Culture - Final Klebsiella pneumoniae Assessment and Plan (1) Sepsis: Status: Acute She has sepsis from urinary source related to incontinence and mechanical problems with bladder. There is no obstruction seen on imaging. Plan Ertapenem for 10 days Urology follow up help with bladder concerns. Time Spent With Patient Time: Total time managing care of this patient today ____ minutes.
[2022-08-22 19:40] VITALS: BP 136/65; PULSE 66; RESP 18; TEMP 36.1; O2SAT 95
[2022-08-22 20:44] LABS: Glucose, Whole Blood 128 mg/dL (60-115)
[2022-08-22] MEDS: Melatonin 3 MG TABLET 6 MG PO (21:41)
[2022-08-23] MEDS: 0.9 % Sodium Chloride Flush 3 ML SYRINGE IVFLUSH ×4 (01:06→21:16)
[2022-08-23 04:00] VITALS: BP 145/57; PULSE 62; RESP 17; TEMP 36.1; O2SAT 97
[2022-08-23] MEDS: Heparin Sodium,Porcine 5,000 UNIT/ML VIAL 5000 UNIT SUBCUT ×2 (04:33→17:32)
[2022-08-23] MEDS: Omeprazole 40 MG CAPSULE.DR PO ×2 (06:50→17:32)
[2022-08-23 07:41] LABS: Glucose, Whole Blood 108 mg/dL (60-115)
[2022-08-23 08:00] VITALS: BP 130/62; PULSE 68; RESP 18; TEMP 36.3; O2SAT 96
[2022-08-23] MEDS: Aspirin Enteric Coated 81 MG TABLET.DR PO (09:24)
[2022-08-23] MEDS: Pregabalin 100 MG CAPSULE PO ×3 (09:24→21:14)
[2022-08-23] MEDS: Pravastatin Sodium 20 MG TABLET PO (09:24)
[2022-08-23] MEDS: DULoxetine HCl 20 MG CAPSULE.DR PO (09:24)
[2022-08-23] MEDS: PARoxetine HCL 40 MG TABLET PO (09:24)
[2022-08-23] MEDS: Cholecalciferol (Vitamin D3) 25 MCG TABLET 50 MCG PO (09:25)
[2022-08-23] MEDS: Metoprolol Succinate ER 25 MG TAB.ER.24H PO (09:25)
[2022-08-23 11:25] LABS: Glucose, Whole Blood 128 mg/dL (60-115)
--- NOTE | 2022-08-23 11:30 | P.CONNP_ITS ---
History of Present Illness Reason for Consult Consult date: 08/23/22 Reason for consult: CKD management Requesting physician: Latoya Valencia Chief Complaint Chief complaint: UTI, NSTEMI History of Present Illness Narrative: Ms. Wanda Blum is a 76-year-old female with past medical history of CKD stage IIIa (BL Cr 1.6mg/dL), HTN, T2DM, recurrent hyperkalemia (for some reason prescribed aldactone) who presented to [facility] with SIRS. She was found to be hypotensive, febrile, tachycardic, with high lactic acidosis in the backdrop of urosepsis. She ws started on CTX and now on Meropenem with expectation for a 10 day course. The patient then had Non ST-elevation SD likely secondary due to acute infection, s/p IV heparin x 48h, continue aspirin, statins ,and beta blockers. Echocardiogram showed EF 55-60%, akinetic apex, concerning for Tako. Cardiology following. Review of Systems Review of Systems Yes all other systems are reviewed and are negative PMFSH Past Medical History Medical History Adult BMI 30.0-30.9 kg/sq m Age-related osteoporosis without current pathological fracture Anemia B12 deficiency Breast pain, left Celiac disease Chronic kidney disease, stage 3 CKD (chronic kidney disease) Decreased pedal pulses Diabetes mellitus with complication Dyslipidemia Essential hypertension GERD (gastroesophageal reflux disease) Gitelman disease Gout Hiatal hernia IBS (irritable bowel syndrome) Neuropathy Obesity (BMI 30-39.9) On beta jody at home GOPAL on CPAP Osteoarthritis Proteinuria Restrictive lung disease Retinopathy Right rotator cuff tear Seizures 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 Mother Cancer Diabetes Daughter Substance use disorder Mental health disorder Family history: reviewed and not pertinent Surgical History Surgical History History of back surgery History of carpal tunnel surgery of right wrist History of left shoulder replacement History of revision of total replacement of right hip joint History of total left knee replacement Hx of colonoscopy Hx of fracture of fibula Social History Social History Household Members: Spouse and Children Household Members Other:: 2 daughter and their children Housing: House Are you a primary specialist wound care to a significant other at home: No Do you presently have visiting nurse or other home services: Yes (PT/OT) Alcohol intake: unknown Patient Tobacco Use Status: Former Tobacco user Tobacco use type: Cigarette Years Smoked: 1963 e-Cigarette/Vaping Use: Never Used Second Hand Smoke Exposure: Yes service: No Current occupational status: retired Cognitive needs: No Hearing needs: No Vision needs: Yes Meds Allergies Allergy/AdvReac Type Severity Reaction Status Date / Time sulfamethoxazole Allergy Unknown UNKNOWN Verified 06/17/22 11:25 [From BACTRIM] trimethoprim [From BACTRIM] Allergy Unknown UNKNOWN Verified 06/17/22 11:25 adhesive tape Allergy Blister Verified 08/21/22 09:02 from adhesive bandages and rash from plastic tape phenytoin [From Dilantin] Allergy Unknown Verified 08/21/22 09:00 Active Medications: Current Medications Acetaminophen (Acetaminophen 325 Mg Tablet) 650 mg PO Q6H PRN PRN Reason: Pain, Mild (Pain Scale 1-3) Last Admin: 08/22/22 14:24 Dose: 650 mg Acetaminophen/Butalbital/Caffeine (Butalb/Acetamin/Caff 50/325/40 Tablet) 1 tab PO ONCE PRN PRN Reason: headache Last Admin: 08/19/22 14:32 Dose: 1 tab Albuterol Sulfate (Albuterol Sulfate 90 Mcg 8 Gm Inhaler) 1 puff INHALE Q6H PRN PRN Reason: bronchospasm Aspirin (Aspirin Enteric Coated 81 Mg Tablet.) 81 mg PO DAILY [facility] Last Admin: 08/23/22 09:24 Dose: 81 mg Dextrose (Dextrose 50 % 25 Gm/50 Ml Syringe) 25 gm IVPUSH Q15M PRN; Protocol PRN Reason: per Hypoglycemia Standing Ord. Duloxetine HCl (Duloxetine Hcl 20 Mg Capsule.) 20 mg PO DAILY [facility] Last Admin: 08/23/22 09:24 Dose: 20 mg Glucose (Glucose Gel 15 Gm Gel..Gram.) 15 gm PO Q15M PRN; Protocol PRN Reason: per Hypoglycemia Standing Ord. Heparin Sodium (Porcine) (Heparin Sodium,Porcine 5,000 Unit/Ml Vial) 5,000 unit SUBCUT Q12H [facility] Last Admin: 08/23/22 04:33 Dose: 5,000 unit Meropenem 1 gm/ Sodium (Chloride) 100 mls @ 200 mls/hr IV Q12H [facility] Last Infusion: 08/23/22 05:03 Dose: Infused Insulin Human Lispro (Insulin Lispro 100 Unit/Ml 3 Ml Vial) 0 unit SUBCUT QIDACHS [facility]; Protocol Last Admin: 08/23/22 07:58 Dose: Not Given Melatonin (Melatonin 3 Mg Tablet) 6 mg PO BEDTIME PRN PRN Reason: Insomnia Last Admin: 08/22/22 21:41 Dose: 6 mg Metoprolol Succinate (Metoprolol Succinate Er 25 Mg Tab.Er.24h) 25 mg PO DAILY [facility]; Protocol Last Admin: 08/23/22 09:25 Dose: 25 mg Non-Formulary Medication (Pt Own (Mag-Tab Sr)) 4 tab PO BID [facility] Last Admin: 08/23/22 09:29 Dose: 4 tab Omeprazole (Omeprazole 40 Mg Capsule.Dr) 40 mg PO BID@0630,1630 [facility] Last Admin: 08/23/22 06:50 Dose: 40 mg Ondansetron HCl (Ondansetron Hcl 4 Mg/2 Ml Vial) 4 mg IVPUSH Q8H PRN PRN Reason: Nausea and Vomiting Paroxetine HCl (Paroxetine Hcl 40 Mg Tablet) 40 mg PO DAILY [facility] Last Admin: 08/23/22 09:24 Dose: 40 mg Pharmacy Consult (Consult Rx Perform Med Rec) 1 each MISCELLANE ONCE PRN PRN Reason: Consult order Pravastatin Sodium (Pravastatin Sodium 20 Mg Tablet) 20 mg PO DAILY [facility] Last Admin: 08/23/22 09:24 Dose: 20 mg Pregabalin (Pregabalin 100 Mg Capsule) 100 mg PO TID [facility] Last Admin: 08/23/22 09:24 Dose: 100 mg Sodium Chloride (0.9 % Sodium Chloride Flush 3 Ml Syringe) 3 ml IVFLUSH QSHIFT [facility] Last Admin: 08/23/22 09:25 Dose: 3 ml Vitamin D (Cholecalciferol (Vitamin D3) 25 Mcg Tablet) 50 mcg PO DAILY [facility] Last Admin: 08/23/22 09:25 Dose: 50 mcg Home Medications Medication Instructions Recorded Confirmed Last Taken Type blood sugar diagnostic #10 ea 05/17/20 05/27/22 Unknown History lancets 33 gauge #100 ea 05/17/20 05/27/22 Unknown History duloxetine 20 mg capsule,delayed 20 mg PO DAILY 05/08/21 08/19/22 07/02/21 07:10 History release magnesium L-lactate 84 mg 336 mg PO BID 08/19/22 08/20/22 Unknown History tablet,extended release pregabalin 100 mg capsule 1 cap PO TID 08/19/22 08/19/22 Unknown History Physical Exam Vital Signs: Last Vital Signs Temp 97.4 F 08/23/22 08:00 Pulse 68 08/23/22 08:00 Resp 18 08/23/22 08:00 BP 130/62 08/23/22 08:00 Pulse Ox 96 08/23/22 08:00 O2 Del Method 08/23/22 08:00 BMI result Body Mass Index 28.0 Const Other: General awake alert x3 resting comfortably in no acute distress.? Neck? supple no JVD. CVS? regular rate rhythm, Respiratory lungs clear to auscultation, no respiratory distress, no wheeze, no rhonchi. Gastrointestinal abdomen soft, nontender, bowel sounds audible, no guarding , no rigidity. Extremities no pitting edema. Neuro nonfocal . Skin no rash Appropriate affect Results Lab Results 08/22/22 06:22 08/22/22 06:22 Lab results: Chemistry 08/22/22 06:22 Sodium 141 Potassium 4.9 Carbon Dioxide 20 L BUN 23 H Creatinine 1.46 H Calcium 8.7 D Hematology 08/22/22 06:22 WBC 7.8 Hgb 9.3 L Plt Count 301 Assessment and Plan (1) Sepsis: Status: Acute She has sepsis from urinary source related to incontinence and mechanical problems with bladder. There is no obstruction seen on imaging. (2) Cardiomyopathy: Status: Acute (3) Non-ST elevation SD (NSTEMI): Status: Acute (4) Type 2 diabetes mellitus with diabetic polyneuropathy: Status: Acute (5) Chronic kidney disease, stage 3: Status: Acute (6) Proteinuria: Status: Acute (7) Essential hypertension: Status: Acute Plan Ms. Wanda Blum is a 76-year-old female with past medical history of CKD stage IIIa (BL Cr 1.6mg/dL), HTN, T2DM, recurrent hyperkalemia (for some reason prescribed aldactone) who presented to [facility] with SIRS. She was found to be hypotensive, febrile, tachycardic, with high lactic acidosis in the backdrop of urosepsis. She ws started on CTX and now on Meropenem with expectation for a 10 day course. 1. CKD Stage IIIa BL Cr 1.6mg/dL Likely proteinuric CKD due to diabetic nephropathy. 2. Hypertension Managed on Spironolactone, however patient has a history of recurrent hyperkalemia 3. 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 Reported history of Gitlemans Doubtful since patient usually is runing on high normal serum potassium trends. Also has hsitory of hypermag She is on mag supplement none the less. Plan: - permanently stop aldactone. - ok to c/w mag supplement for now but please check a serum mag - check serum calcium - OK for midline / piCC - will set up f/u for patient with [facility] [place] office per her preference to further elucidate her med history and CKD history. Time Spent With Patient Time: Total time managing care of this patient today ____ minutes. Procedures Date of Service Date of Service: 08/23/22
--- NOTE | 2022-08-23 15:04 | P.PNIM_ITS ---
Subjective Subjective Date of Service: 08/23/22 Interval History: No acute issues overnight. Tolerating therapies Review of Systems Denies chest pain Denies shortness of breath Denies nausea vomiting diarrhea Denies fever chills Physical Exam Vital Signs: Vital Signs: Last Vital Signs Temp 97.4 F 08/23/22 08:00 Pulse 68 08/23/22 08:00 Resp 18 08/23/22 08:00 BP 130/62 08/23/22 08:00 Pulse Ox 96 08/23/22 08:00 O2 Del Method 08/23/22 08:00 BMI result Body Mass Index 28.0 Const: Other: Awake alert oriented x3 no acute distress Resp: Other: Clear to auscultation bilaterally no rales rhonchi or wheezes Cardio: Other: No S4; positive S1-S2; no S3 murmurs rubs or gallops GI: Other: Soft nontender nondistended normoactive bowel sounds Extrem: Other: No edema bilaterally Objective Data Active Medications Acetaminophen (Acetaminophen 325 Mg Tablet) 650 mg PO Q6H PRN PRN Reason: Pain, Mild (Pain Scale 1-3) Last Admin: 08/22/22 14:24 Dose: 650 mg Documented By: M[place] Acetaminophen/Butalbital/Caffeine (Butalb/Acetamin/Caff 50/325/40 Tablet) 1 tab PO ONCE PRN PRN Reason: headache Last Admin: 08/19/22 14:32 Dose: 1 tab Documented By: MARGE Albuterol Sulfate (Albuterol Sulfate 90 Mcg 8 Gm Inhaler) 1 puff INHALE Q6H PRN PRN Reason: bronchospasm Aspirin (Aspirin Enteric Coated 81 Mg Tablet.) 81 mg PO DAILY [facility] Last Admin: 08/23/22 09:24 Dose: 81 mg Documented By: HAKEEM Dextrose (Dextrose 50 % 25 Gm/50 Ml Syringe) 25 gm IVPUSH Q15M PRN; Protocol PRN Reason: per Hypoglycemia Standing Ord. Duloxetine HCl (Duloxetine Hcl 20 Mg Capsule.) 20 mg PO DAILY [facility] Last Admin: 08/23/22 09:24 Dose: 20 mg Documented By: HAKEEM Glucose (Glucose Gel 15 Gm Gel..Gram.) 15 gm PO Q15M PRN; Protocol PRN Reason: per Hypoglycemia Standing Ord. Heparin Sodium (Porcine) (Heparin Sodium,Porcine 5,000 Unit/Ml Vial) 5,000 unit SUBCUT Q12H [facility] Last Admin: 08/23/22 04:33 Dose: 5,000 unit Documented By: ЕКАТЕРИНА Meropenem 1 gm/ Sodium (Chloride) 100 mls @ 200 mls/hr IV Q12H [facility] Last Infusion: 08/23/22 05:03 Dose: 0 mls/hr Documented By: ЕКАТЕРИНА Insulin Human Lispro (Insulin Lispro 100 Unit/Ml 3 Ml Vial) 0 unit SUBCUT QIDACHS [facility]; Protocol Last Admin: 08/23/22 11:39 Dose: Not Given Documented By: HAKEEM Non-Admin Reason: No Insulin Coverage Melatonin (Melatonin 3 Mg Tablet) 6 mg PO BEDTIME PRN PRN Reason: Insomnia Last Admin: 08/22/22 21:41 Dose: 6 mg Documented By: ЕКАТЕРИНА Metoprolol Succinate (Metoprolol Succinate Er 25 Mg Tab.Er.24h) 25 mg PO DAILY [facility]; Protocol Last Admin: 08/23/22 09:25 Dose: 25 mg Documented By: HAKEEM Non-Formulary Medication (Pt Own (Mag-Tab Sr)) 4 tab PO BID [facility] Last Admin: 08/23/22 09:29 Dose: 4 tab Documented By: HAKEEM Omeprazole (Omeprazole 40 Mg Capsule.) 40 mg PO BID@0630,1630 [facility] Last Admin: 08/23/22 06:50 Dose: 40 mg Documented By: ЕКАТЕРИНА Ondansetron HCl (Ondansetron Hcl 4 Mg/2 Ml Vial) 4 mg IVPUSH Q8H PRN PRN Reason: Nausea and Vomiting Paroxetine HCl (Paroxetine Hcl 40 Mg Tablet) 40 mg PO DAILY [facility] Last Admin: 08/23/22 09:24 Dose: 40 mg Documented By: HAKEEM Pharmacy Consult (Consult Rx Perform Med Rec) 1 each MISCELLANE ONCE PRN PRN Reason: Consult order Pravastatin Sodium (Pravastatin Sodium 20 Mg Tablet) 20 mg PO DAILY [facility] Last Admin: 08/23/22 09:24 Dose: 20 mg Documented By: HAKEEM Pregabalin (Pregabalin 100 Mg Capsule) 100 mg PO TID [facility] Last Admin: 08/23/22 09:24 Dose: 100 mg Documented By: HAKEEM Sodium Chloride (0.9 % Sodium Chloride Flush 3 Ml Syringe) 3 ml IVFLUSH QSHIFT [facility] Last Admin: 08/23/22 09:25 Dose: 3 ml Documented By: HAKEEM Vitamin D (Cholecalciferol (Vitamin D3) 25 Mcg Tablet) 50 mcg PO DAILY [facility] Last Admin: 08/23/22 09:25 Dose: 50 mcg Documented By: HAKEEM Labs 08/22/22 06:22 08/22/22 06:22 Labs: Laboratory Results - last 24 hr 08/22/22 08/22/22 08/23/22 15:20 20:26 07:12 POC Glucose 111 128 H 108 08/23/22 11:20 POC Glucose 128 H Assessment and Plan (1) Sepsis: Status: Acute (2) UTI (urinary tract infection): Status: Acute (3) Non-ST elevation DE (NSTEMI): Status: Acute (4) Type 2 diabetes mellitus with diabetic polyneuropathy: Status: Acute (5) Essential hypertension: Status: Acute Plan Patient admitted with acute onset of chills and shivering was chills associated with confusion and significant weakness, in ER patient was noted to be hypotensive with systolic BP of 73/46 , fever of 103.3, tachycardia, tachypnea, lactic acidosis, UA significantly positive, elevated troponin, chest x-ray amy wed retrocardiac left basilar opacity suspected to be due to large hiatal hernia patient treated in the emergency room with IV fluids, IV antibiotics and IV heparin. 1.Severe sepsis due to UTI/bacteremia (resolved) -blood culture/ urine culture( Klebsiella pneumoniae ESBL positive) - meropenem (2) - ID; IV ertapenem times 10 days; midline 2/[address]-elevation [place] (acute infection) -s/p IV heparin x 48h -ASA/Statin/BB -echocardiogram showed EF 55-60%, akinetic apex,LDL 64, repeat EKG showed anterolateral T-wave inversion and prolonged QT -cardiology questions Takotsubo; outpatient follow-up 3.Hypertension -acceptable control on current therapies -adjust as indicated 4.Diabetes mellitus -acceptable control on sliding scale -at therapies as indicated Lovenox Full code Patient will need continued inpatient hospitalization for management of bacteremia which requires IV antibiotics. Midline 2/6 Time Spent With Patient Time: Total time managing care of this patient today ____ minutes. Quality Stroke Does the patient have a stroke diagnosis?: No VTE Prior VTE?: No VTE Risk Level:: Medical - moderate - high VTE Device Contraindication: Treatment Not Indicated VTE Drug Contraindication: N/A - Med Ordered
[2022-08-23 16:00] VITALS: BP 120/76; PULSE 65; RESP 16; TEMP 36.2; O2SAT 93
[2022-08-23 16:44] LABS: Glucose, Whole Blood 106 mg/dL (60-115)
[2022-08-23 19:51] VITALS: BP 132/71; PULSE 69; RESP 15; TEMP 36.3; O2SAT 94
[2022-08-23 21:25] LABS: Glucose, Whole Blood 149 mg/dL (60-115)
[2022-08-23] MEDS: Butalb/Acetamin/Caff 50/325/40 TABLET 1 TAB PO (22:49)
[2022-08-24] VITALS (7 sets, daily range): BP systolic 118–153; BP diastolic 58–65; PULSE 66–76; RESP 15–18; TEMP 36.1–36.7; O2SAT 93–95
[2022-08-24] MEDS: Heparin Sodium,Porcine 5,000 UNIT/ML VIAL 5000 UNIT SUBCUT ×2 (04:52→16:23)
[2022-08-24] MEDS: Omeprazole 40 MG CAPSULE.DR PO ×2 (05:59→16:24)
[2022-08-24 07:54] LABS: Glucose, Whole Blood 112 mg/dL (60-115)
--- NOTE | 2022-08-24 09:39 | PM.PNNEP ---
Subjective Subjective Date of Service: 08/24/22 Interval history: No acute issues overnight. Tolerating therapies Physical Exam Vital Signs: Vital Signs: Last Vital Signs Temp 97.6 F 08/24/22 07:32 Pulse 66 08/24/22 07:32 Resp 18 08/24/22 07:32 BP 144/63 H 08/24/22 07:32 Pulse Ox 95 08/24/22 07:32 O2 Del Method 08/24/22 07:32 BMI result Body Mass Index 28.0 Const: Other: General awake alert x3 resting comfortably in no acute distress.? Neck? supple no JVD. CVS? regular rate rhythm, Respiratory lungs clear to auscultation, no respiratory distress, no wheeze, no rhonchi. Gastrointestinal abdomen soft, nontender, bowel sounds audible, no guarding , no rigidity. Extremities no pitting edema. Neuro nonfocal . Skin no rash Appropriate affect Objective Data Labs 08/22/22 06:22 08/22/22 06:22 Labs: Laboratory Results - last 24 hr 08/23/22 08/23/22 08/23/22 11:20 16:32 21:04 POC Glucose 128 H 106 149 H 08/24/22 07:30 POC Glucose 112 Microbiology Microbiology Results: Microbiology 08/19/22 00:15 Blood - Venous Blood Culture - Final Klebsiella pneumoniae 08/19/22 00:15 Blood - Venous Blood Culture - Preliminary Klebsiella pneumoniae 08/19/22 Unknown Urine Catheterized - Cole Catheter Urine Culture - Final Klebsiella pneumoniae Procedures Date of Service Date of Service: 08/24/22 Assessment & Plan Assessment and plan (1) Sepsis: Status: Acute Assessment and Plan: She has sepsis from urinary source related to incontinence and mechanical problems with bladder. There is no obstruction seen on imaging. (2) Cardiomyopathy: Status: Acute (3) Non-ST elevation [place] (NSTEMI): Status: Acute (4) Type 2 diabetes mellitus with diabetic polyneuropathy: Status: Acute (5) Chronic kidney disease, stage 3: Status: Acute (6) Proteinuria: Status: Acute (7) Essential hypertension: Status: Acute Plan Ms. Wanda Blum is a 76-year-old female with past medical history of CKD stage IIIa (BL Cr 1.6mg/dL), HTN, T2DM, recurrent hyperkalemia (for some reason prescribed aldactone) who [place] [facility] [place] She was found to be hypotensive, febrile, tachycardic, with high lactic acidosis in the backdrop of urosepsis. She ws started on CTX and now on Meropenem with expectation for a 10 day course. 1. CKD Stage IIIa BL Cr 1.6mg/dL Likely proteinuric CKD due to diabetic nephropathy. 2. Hypertension Managed on Spironolactone, however patient has a history of recurrent hyperkalemia 3. 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 Reported history of Gitlemans Doubtful since patient usually is runing on high normal serum potassium trends. Also has hsitory of hypermag She is on mag supplement none the less. Plan: - permanently stop aldactone. - ok to c/w mag supplement for now but please check a serum mag - check serum calcium - OK for midline / piCC - I have spoken with patient and her daughter who is a physician. They would like to set up Nephrology care closer to home, [place]. Also they request second opinion and review of her medications. Will provide referral for [address] [place] [address] Drive office. Time Spent With Patient Time: Total time managing care of this patient today ____ minutes. Progress Note: Quality Stroke Does the patient have a stroke diagnosis?: No
[2022-08-24] MEDS: Metoprolol Succinate ER 25 MG TAB.ER.24H PO (10:27)
[2022-08-24] MEDS: Pravastatin Sodium 20 MG TABLET PO (10:27)
[2022-08-24] MEDS: Aspirin Enteric Coated 81 MG TABLET.DR PO (10:27)
[2022-08-24] MEDS: DULoxetine HCl 20 MG CAPSULE.DR PO (10:27)
[2022-08-24] MEDS: Cholecalciferol (Vitamin D3) 25 MCG TABLET 50 MCG PO (10:27)
[2022-08-24] MEDS: Pregabalin 100 MG CAPSULE PO ×3 (10:28→21:00)
[2022-08-24] MEDS: 0.9 % Sodium Chloride Flush 3 ML SYRINGE IVFLUSH ×2 (10:28→16:26)
[2022-08-24] MEDS: PARoxetine HCL 40 MG TABLET PO (10:28)
[2022-08-24 10:36] LABS: Magnesium 1.5 mg/dL (1.6-2.6)
--- NOTE | 2022-08-24 11:08 | P.PNIM_ITS ---
Subjective Subjective Date of Service: 08/24/22 Interval History: No acute issues overnight. Awaiting midline in a.m. Review of Systems Denies chest pain Denies shortness of breath Denies nausea vomiting diarrhea Denies fever chills Physical Exam Vital Signs: Vital Signs: Last Vital Signs Temp 98.0 F 08/24/22 10:50 Pulse 76 08/24/22 10:50 Resp 18 08/24/22 10:50 BP 136/65 08/24/22 10:50 Pulse Ox 93 08/24/22 10:50 O2 Del Method 08/24/22 10:50 BMI result Body Mass Index 28.0 Const: Other: Awake alert oriented x3 no acute distress Resp: Other: Clear to auscultation bilaterally no rales rhonchi or wheezes Cardio: Other: No S4; positive S1-S2; no S3 murmurs rubs or gallops GI: Other: Soft nontender nondistended normoactive bowel sounds Extrem: Other: No edema bilaterally Objective Data Active Medications Acetaminophen (Acetaminophen 325 Mg Tablet) 650 mg PO Q6H PRN PRN Reason: Pain, Mild (Pain Scale 1-3) Last Admin: 08/22/22 14:24 Dose: 650 mg Documented By: MADISON Acetaminophen/Butalbital/Caffeine (Butalb/Acetamin/Caff 50/325/40 Tablet) 1 tab PO ONCE PRN PRN Reason: headache Last Admin: 08/19/22 14:32 Dose: 1 tab Documented By: MARGE Albuterol Sulfate (Albuterol Sulfate 90 Mcg 8 Gm Inhaler) 1 puff INHALE Q6H PRN PRN Reason: bronchospasm Aspirin (Aspirin Enteric Coated 81 Mg Tablet.) 81 mg PO DAILY [facility] Last Admin: 08/24/22 10:27 Dose: 81 mg Documented By: HAKEEM Dextrose (Dextrose 50 % 25 Gm/50 Ml Syringe) 25 gm IVPUSH Q15M PRN; Protocol PRN Reason: per Hypoglycemia Standing Ord. Duloxetine HCl (Duloxetine Hcl 20 Mg Capsule.) 20 mg PO DAILY [facility] Last Admin: 08/24/22 10:27 Dose: 20 mg Documented By: HAKEEM Glucose (Glucose Gel 15 Gm Gel..Gram.) 15 gm PO Q15M PRN; Protocol PRN Reason: per Hypoglycemia Standing Ord. Heparin Sodium (Porcine) (Heparin Sodium,Porcine 5,000 Unit/Ml Vial) 5,000 unit SUBCUT Q12H [facility] Last Admin: 08/24/22 04:52 Dose: 5,000 unit Documented By: GAETANO Meropenem 1 gm/ Sodium (Chloride) 100 mls @ 200 mls/hr IV Q12H [facility] Last Infusion: 08/24/22 06:00 Dose: 0 mls/hr Documented By: GAETANO Insulin Human Lispro (Insulin Lispro 100 Unit/Ml 3 Ml Vial) 0 unit SUBCUT QIDACHS [facility]; Protocol Last Admin: 08/24/22 07:58 Dose: Not Given Documented By: HAKEEM Non-Admin Reason: No Insulin Coverage Melatonin (Melatonin 3 Mg Tablet) 6 mg PO BEDTIME PRN PRN Reason: Insomnia Last Admin: 08/22/22 21:41 Dose: 6 mg Documented By: ЕКАТЕРИНА Metoprolol Succinate (Metoprolol Succinate Er 25 Mg Tab.Er.24h) 25 mg PO DAILY [facility]; Protocol Last Admin: 08/24/22 10:27 Dose: 25 mg Documented By: HAKEEM Non-Formulary Medication (Pt Own (Mag-Tab Sr)) 4 tab PO BID [facility] Last Admin: 08/24/22 10:28 Dose: 4 tab Documented By: HAKEEM Omeprazole (Omeprazole 40 Mg Capsule.Dr) 40 mg PO BID@0630,1630 [facility] Last Admin: 08/24/22 05:59 Dose: 40 mg Documented By: GAETANO Ondansetron HCl (Ondansetron Hcl 4 Mg/2 Ml Vial) 4 mg IVPUSH Q8H PRN PRN Reason: Nausea and Vomiting Paroxetine HCl (Paroxetine Hcl 40 Mg Tablet) 40 mg PO DAILY [facility] Last Admin: 08/24/22 10:28 Dose: 40 mg Documented By: HAKEEM Pharmacy Consult (Consult Rx Perform Med Rec) 1 each MISCELLANE ONCE PRN PRN Reason: Consult order Pravastatin Sodium (Pravastatin Sodium 20 Mg Tablet) 20 mg PO DAILY [facility] Last Admin: 08/24/22 10:27 Dose: 20 mg Documented By: HAKEEM Pregabalin (Pregabalin 100 Mg Capsule) 100 mg PO TID [facility] Last Admin: 08/24/22 10:28 Dose: 100 mg Documented By: HAKEEM Sodium Chloride (0.9 % Sodium Chloride Flush 3 Ml Syringe) 3 ml IVFLUSH QSHIFT [facility] Last Admin: 08/24/22 10:28 Dose: 3 ml Documented By: HAKEEM Vitamin D (Cholecalciferol (Vitamin D3) 25 Mcg Tablet) 50 mcg PO DAILY [facility] Last Admin: 08/24/22 10:27 Dose: 50 mcg Documented By: HAKEEM Labs 08/22/22 06:22 08/22/22 06:22 Labs: Laboratory Results - last 24 hr 08/23/22 08/23/22 08/23/22 11:20 16:32 21:04 POC Glucose 128 H 106 149 H Magnesium 08/24/22 08/24/22 07:30 10:04 POC Glucose 112 Magnesium 1.5 L Assessment and Plan (1) Sepsis: Status: Acute (2) UTI (urinary tract infection): Status: Acute (3) Non-ST elevation [place] (NSTEMI): Status: Acute Plan Patient admitted with acute onset of chills and shivering was chills associated with confusion and significant weakness, in ER patient was noted to be hypo tensive with systolic BP of 73/46 , fever of 103.3, tachycardia, tachypnea, lactic acidosis, UA significantly positive, elevated troponin, chest x-ray showed retrocardiac left basilar opacity suspected to be due to large hiatal hernia patient treated in the emergency room with IV fluids, IV antibiotics and IV heparin. 1.Severe sepsis due to UTI/bacteremia (resolved) -blood culture/ urine culture( Klebsiella pneumoniae ESBL positive) - meropenem (2) - ID; IV ertapenem times 10 days; midline 2/[address]-elevation [place] (acute infection) -s/p IV heparin x 48h -ASA/Statin/BB -cardiology questions Takotsubo; outpatient follow-up 3.Hypertension -acceptable control on current therapies -adjust as indicated 4.Diabetes mellitus -acceptable control on sliding scale -at therapies as indicated Lovenox Full code Patient will need continued inpatient hospitalization for management of bacteremia which requires IV antibiotics. Midline 2/6 Time Spent With Patient Time: Total time managing care of this patient today ____ minutes. Quality Stroke Does the patient have a stroke diagnosis?: No VTE Prior VTE?: No VTE Risk Level:: Medical - moderate - high VTE Device Contraindication: Treatment Not Indicated VTE Drug Contraindication: N/A - Med Ordered
[2022-08-24 11:29] LABS: Glucose, Whole Blood 177 mg/dL (60-115)
[2022-08-24] MEDS: Insulin Lispro 100 UNIT/ML 3 ML VIAL SUBCUT (12:25)
[2022-08-24 16:27] LABS: Glucose, Whole Blood 109 mg/dL (60-115)
[2022-08-24 20:40] LABS: Glucose, Whole Blood 118 mg/dL (60-115)
[2022-08-24] MEDS: Butalb/Acetamin/Caff 50/325/40 TABLET 1 TAB PO (21:12)
[2022-08-25 03:50] VITALS: BP 136/63; PULSE 65; RESP 16; TEMP 36.3; O2SAT 96
[2022-08-25] MEDS: Heparin Sodium,Porcine 5,000 UNIT/ML VIAL 5000 UNIT SUBCUT ×2 (03:53→15:46)
[2022-08-25] MEDS: Omeprazole 40 MG CAPSULE.DR PO ×2 (04:51→15:45)
[2022-08-25 07:57] VITALS: BP 146/59; PULSE 69; RESP 20; TEMP 36.3; O2SAT 94
[2022-08-25 08:07] LABS: Anion Gap 16 (12-20); Blood Urea Nitrogen 29 mg/dL (9-16); Calcium 9.7 mg/dL (8.4-10.2); Carbon Dioxide 23 mmol/L (22-29); Chloride 102 mmol/L (96-108); Creatinine Clr Calc Pharmacy 34.4; Estimated Glomerular Filt Rate 30; Glucose Random 102 mg/dL (60-115); Potassium 4.3 mmol/L (3.3-5.1); Sodium 137 mmol/L (135-145)
[2022-08-25 08:11] LABS: Glucose, Whole Blood 125 mg/dL (60-115)
[2022-08-25] MEDS: Aspirin Enteric Coated 81 MG TABLET.DR PO (09:16)
[2022-08-25] MEDS: Pravastatin Sodium 20 MG TABLET PO (09:16)
[2022-08-25] MEDS: Pregabalin 100 MG CAPSULE PO ×2 (09:16→15:45)
[2022-08-25] MEDS: PARoxetine HCL 40 MG TABLET PO (09:16)
[2022-08-25] MEDS: Metoprolol Succinate ER 25 MG TAB.ER.24H PO (09:16)
[2022-08-25] MEDS: DULoxetine HCl 20 MG CAPSULE.DR PO (09:16)
[2022-08-25] MEDS: Cholecalciferol (Vitamin D3) 25 MCG TABLET 50 MCG PO (09:17)
--- NOTE | 2022-08-25 10:29 | PM.PNNEP ---
Subjective Subjective Date of Service: 08/26/22 Interval history: No acute issues overnight. Awaiting midline in a.m. Physical Exam Vital Signs: Vital Signs: Last Vital Signs Temp 97.4 F 08/25/22 07:57 Pulse 69 08/25/22 07:57 Resp 20 08/25/22 07:57 BP 146/59 H 08/25/22 07:57 Pulse Ox 94 08/25/22 07:57 O2 Del Method 08/25/22 07:57 BMI result Body Mass Index 28.0 Const: Other: General awake alert x3 resting comfortably in no acute distress.? Neck? supple no JVD. CVS? regular rate rhythm, Respiratory lungs clear to auscultation, no respiratory distress, no wheeze, no rhonchi. Gastrointestinal abdomen soft, nontender, bowel sounds audible, no guarding , no rigidity. Extremities no pitting edema. Neuro nonfocal . Skin no rash Appropriate affect Objective Data Labs 08/22/22 06:22 08/25/22 06:47 Labs: Laboratory Results - last 24 hr 08/24/22 08/24/22 08/24/22 10:04 10:48 16:18 Sodium Potassium Chloride Carbon Dioxide Anion Gap BUN Creatinine Estim Creat Clear Calc Estimated GFR POC Glucose 177 H 109 Random Glucose Calcium Magnesium 1.5 L 08/24/22 08/25/22 08/25/22 20:30 06:47 07:58 Sodium 137 Potassium 4.3 Chloride 102 Carbon Dioxide 23 Anion Gap 16 BUN 29 H Creatinine 1.65 H Estim Creat Clear Calc 34.4 Estimated GFR 30 POC Glucose 118 H 125 H Random Glucose 102 Calcium 9.7 D Magnesium Microbiology Microbiology Results: Microbiology 08/19/22 00:15 Blood - Venous Blood Culture - Final Klebsiella pneumoniae 08/19/22 00:15 Blood - Venous Blood Culture - Final Klebsiella pneumoniae 08/19/22 Unknown Urine Catheterized - Cole Catheter Urine Culture - Final Klebsiella pneumoniae Procedures Date of Service Date of Service: 08/25/22 Assessment & Plan Assessment and plan (1) Sepsis: Status: Acute Assessment and Plan: She has sepsis from urinary source related to incontinence and mechanical problems with bladder. There is no obstruction seen on imaging. (2) Cardiomyopathy: Status: Acute (3) Non-ST elevation [place] (NSTEMI): Status: Acute (4) Type 2 diabetes mellitus with diabetic polyneuropathy: Status: Acute (5) Chronic kidney disease, stage 3: Status: Acute (6) Proteinuria: Status: Acute (7) Essential hypertension: Status: Acute Plan Ms. Wanda Blum is a 76-year-old female with past medical history of CKD stage IIIa (BL Cr 1.6mg/dL), HTN, T2DM, recurrent hyperkalemia (for some reason prescribed aldactone) who presented [place] [facility] [place]. She was found to be hypotensive, febrile, tachycardic, with high lactic acidosis in the backdrop of urosepsis. She ws started on CTX and now on Meropenem with expectation for a 10 day course. 1. CKD Stage IIIa BL Cr 1.6mg/dL Likely proteinuric CKD due to diabetic nephropathy. 2. Hypertension Managed on Spironolactone, however patient has a history of recurrent hyperkalemia 3. 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 Reported history of Gitlemans Doubtful since patient usually is runing on high normal serum potassium trends. Also has hsitory of hypermag She is on mag supplement none the less. Plan: - permanently stop aldactone. - ok to c/w mag supplement for now but please check a serum mag - check serum calcium - OK for midline / piCC - I have spoken with patient and her daughter who is a physician. They would like to set up Nephrology care closer to home, [place]. Also they request second opinion and review of her medications. Will provide referral for [address] [place] [address] Drive office. Time Spent With Patient Time: Total time managing care of this patient today ____ minutes. Progress Note: Quality Stroke Does the patient have a stroke diagnosis?: No
--- NOTE | 2022-08-25 11:51 | HO.MIDLINE_ITS ---
Midline Insertion MIDLINE INSERTION Diagnosis: SEPSIS/UTI Indication: senior care antibiotics needed Pertinent Labs: reviewed Technique: Using sterile technique including cap and mask, glove and drape, the right arm was prepped and draped in the usual sterile fashion of full barrier technique with CHG. Using ultrasound guidance, right Cephalic vein access was obtained twice, but unable to advance guidewire. Right basilic vein access was then obtained. A 20G X 10CM Non PASV Midline was positioned. The procedure was performed in [S272]. Ultrasound was used to document vein patency and for needle entry. A formal ultrasound picture was recorded. Vascular [employer] Officer has released the line for use and it is currently dressed with a StatLock, Tegaderm, and CHG disc. Verification has been performed for blood return and line patency. Arm Circumference: 25CM Equipment: BARD PowerGlide ST midline Catheter Type: [id number] Non-PASV Midline Lot #: [id number]
[2022-08-25] MEDS: 0.9 % Sodium Chloride Flush 3 ML SYRINGE IVFLUSH (12:36)
--- NOTE | 2022-08-25 12:55 | MHC.CM.PN ---
pt to be dcd today at [address] [facility] pt is aware that there will be covid pts on the floor where she is going
--- NOTE | 2022-08-25 13:10 | PM.DS ---
DS: Providers Provider Date of Service: 08/25/22 Date of admission: 08/19/22 01:59 Date of discharge: 08/25/22 Primary care physician: BENOIT Ballesteros Consults: 08/19/22 06:36 Consult to Cardiology Routine Consulting Provider: Michael Ledesma Reason for consultation: NSTEMI 08/21/22 14:11 Consult to Infectious Diseases Routine Consulting Provider: Devi Parsons Reason for consultation: esbl positive Klebsiella pneumonia Has provider been notified: No 08/21/22 14:25 Consult to Infectious Diseases Routine Consulting Provider: Devi Parsons Reason for consultation: restricted antibiotic 08/22/22 16:58 Consult to Nephrology Routine Consulting Provider: Wilton Buchanan Reason for consultation: if midline can be placed Has provider been notified: No DS: Diagnosis Discharge Diagnosis (1) Sepsis: Status: Acute (2) UTI (urinary tract infection): Status: Acute (3) Non-ST elevation [place] (NSTEMI): Status: Acute DS: Summary Hospital Course Hospital Course: 76-year-old female with pertinent history of essential hypertension, mixed hyperlipidemia, pli-uiursij-yhatzwvue diabetes mellitus, mood disorder,? chronic kidney disease who was brought to the emergency department for evaluation of confusion and shivering. ER workup consistent with pneumonia and UTI Hospital Course Subsequent blood and urine cultures grew Klebsiella pneumoniae ESBL sensitive to ertapenem only. Patient was started on ertapenem and switched to meropenem (formulary). She completed 5 days of mid IV meropenem; on the day of discharge a midline was placed and she will be discharged to complete 5 additional days of meropenem. Also noted on admission was a an NSTEMI; patient was seen by Cardiology and receive 48 hours of heparin. Will need outpatient workup upon discharge. Patient was seen by Renal for acute kidney failure in backdrop of chronic kidney disease 3. Meds adjusted and patient will follow-up as outpatient. At this time she is medically acceptable for discharge Time Spent with Patient Time attestation: Total time managing care of this patient today ____ minutes. Discharge coordination time: Greater than 30 minutes Quality: Safe Use of Opioids Does Pt have an Active Cancer Diagnosis on the Problem List?: No Quality: Stroke Does the patient have a stroke diagnosis?: No Physical Exam Vital Signs: Vital Signs: Last Vital Signs Temp 97.4 F 08/25/22 07:57 Pulse 69 08/25/22 07:57 Resp 20 08/25/22 07:57 BP 146/59 H 08/25/22 07:57 Pulse Ox 94 08/25/22 07:57 O2 Del Method 08/25/22 07:57 BMI result Body Mass Index 28.0 Const: Other: Awake alert oriented x3 no acute distress Resp: Other: Clear to auscultation bilaterally no rales rhonchi or wheezes Cardio: Other: No S4; positive S1-S2; no S3 murmurs rubs or gallops GI: Other: Soft nontender nondistended normoactive bowel sounds Extrem: Other: No edema bilaterally DS: Data Data Completed and Pending Labs on day of discharge: Laboratory Results - last 24 hr 08/24/22 08/24/22 08/25/22 16:18 20:30 06:47 Sodium 137 Potassium 4.3 Chloride 102 Carbon Dioxide 23 Anion Gap 16 BUN 29 H Creatinine 1.65 H Estim Creat Clear Calc 34.4 Estimated GFR 30 POC Glucose 109 118 H Random Glucose 102 Calcium 9.7 D 08/25/22 07:58 Sodium Potassium Chloride Carbon Dioxide Anion Gap BUN Creatinine Estim Creat Clear Calc Estimated GFR POC Glucose 125 H Random Glucose Calcium Discharge Plan Discharge Anticipated Discharge Date/Time: 08/25/22 12:49 Patient Disposition: Xfer Inpatient Rehab Fac Discharge Diagnosis: Klebsiella bacteremia (urinary source) [facility]errals: [facility] [Other] - 1 Week Mitul Garcia FNP-BREN [Primary Care Provider] - 1 Week Discharge Medications: New meropenem 1 gram Recon Soln 1 g IV Q12H Qty: 5 0RF metoprolol succinate 25 mg Tablet Extended Release 24 Hr 25 mg PO DAILY Qty: 30 0RF Protocol: Hold for SBP/HR < HOLD for SBP < : 90 HOLD for HR < : 60 aspirin 81 mg Tablet,Delayed Release (Dr/Ec) 81 mg PO DAILY Qty: 30 0RF Continued albuterol sulfate 90 mcg/actuation HFA aerosol inhaler 1 puff inhalation Q6H PRN (Reason: bronchospasm) 30 Days Qty: 8.5 4RF tramadol 50 mg tablet 50 mg PO BID PRN (Reason: pain) 7 Days Qty: 14 0RF (DME) afo right foot See Rx Instructions .Route .MEDSUPPLY Qty: 1 0RF Rx Instructions: wear daily metoprolol succinate 25 mg tablet extended release 24 hr 25 mg PO BID Qty: 180 3RF pravastatin 20 mg tablet 20 mg PO DAILY Qty: 90 3RF cholecalciferol (vitamin D3) 50 mcg (2,000 unit) capsule 50 mcg PO DAILY Qty: 30 4RF paroxetine HCl 40 mg tablet 40 mg PO QAM Qty: 90 3RF omeprazole 40 mg capsule,delayed release(DR/EC) 40 mg PO BID Qty: 180 0RF mrfsuechie-yywyhpzdiveqp-nlaw 50-325-40 mg tablet 1 tab PO ONCE PRN (Reason: headache) 15 Days Qty: 15 0RF Rx Instructions: NOTE: can be addictive and can cause rebound Headaches (DME) Accu-Chek Guide test strips Strip See Rx Instructions .Route Qty: 100 11RF Rx Instructions: As directed three times a day calcium citrate 250 mg calcium tablet 500 mg PO BID Qty: 360 0RF (DME) incontinence pad, liner, disp Pad See Rx Instructions .Route Qty: 125 6RF Rx Instructions: daily use spironolactone 50 mg tablet 50 mg PO BID Qty: 60 2RF (DME) lancets [Accu-Chek Softclix Lancets] Misc See Rx Instructions .ROUTE .MEDSUPPLY Qty: 100 11RF Rx Instructions: As directed three times a day diclofenac sodium [Arthritis Pain (diclofenac)] 1 % gel 4 g topical QID Qty: 100 5RF Rx Instructions: apply to single knee, ankle, foot; for foot includes sole/toes/top of foot pregabalin 100 mg capsule 1 cap PO TID magnesium L-lactate 84 mg Tablet Extended Release 336 mg PO BID (DME) blood sugar diagnostic Strip See Rx Instructions Not Applicable .MEDSUPPLY Qty: 10 Rx Instructions: As directed (DME) lancets 33 gauge misc See Rx Instructions .ROUTE .MEDSUPPLY Qty: 100 Rx Instructions: As directed duloxetine 20 mg capsule,delayed release(DR/EC) 20 mg PO DAILY diphenoxylate-atropine 2.5-0.025 mg tablet 1 tab PO BID PRN (Reason: diarrhea) 15 Days Qty: 30 0RF Trulicity 3 mg/0.5 mL pen injector 3 mg subcut QWEEK 28 Days Qty: 6 1RF (DME) Diabetic shoes & 3 pair inserts Diabetic shoes & 3 pair insert kit See Rx Instructions .ROUTE .MEDSUPPLY Qty: 1 0RF Rx Instructions: as directed Discharge Orders: Discharge Order (Routine); Ordered 08/25/22 Ordered By: Alan Richardson Diet: Advance to usual diet Activity on Discharge: As tolerated Stand Alone Forms: Patient Portal Discharge page Care Plan Goals: Complete 5 additional doses of meropenem 1 g IV daily. Last dose 08/30/2022 Health Concerns: Continue all meds as per discharge summary Plan of Treatment: Further plans as per receiving facility Assessment: See discharge summary
[2022-08-25 13:16] LABS: Glucose, Whole Blood 165 mg/dL (60-115)
[2022-08-25 14:16] LABS: COVID-19 Test Negative (Negative); IDNOW Serial# 16C4AD1C
[2022-08-25 15:13] LABS: Glucose, Whole Blood 172 mg/dL (60-115)
[2022-08-25] MEDS: Insulin Lispro 100 UNIT/ML 3 ML VIAL SUBCUT (15:46)
[2022-08-26 12:33] LABS: Calcium, Ionized 4.5 mg/dL (4.8-5.6)
== END 2022-08-25 16:00 | DRG 871 ==
LOC: HO.ED 08-19 02:13 → HO.EDOVER 08-19 02:25 → HO.IMC 08-19 19:53
PROVIDERS: Hospitalist; Internal Medicine Nephrology; Admitting Provider Student in an Organized Health Care Education/Training Program; Emergency Provider Emergency Medicine; PCP Nurse Practitioner Family; Visit Provider Hospitalist
DX: A41.9 Sepsis, unspecified organism (principal); G92.8 Other toxic encephalopathy; I21.4 Non-ST elevation (NSTEMI) myocardial infarction; J18.9 Pneumonia, unspecified organism; N39.0 Urinary tract infection, site not specified; E87.21 Acute metabolic acidosis; I51.81 Takotsubo syndrome; Z16.12 Extended spectrum beta lactamase (ESBL) resistance; I12.9 Hypertensive chronic kidney disease with stage 1 through stage 4 chronic kidney disease, or unspecified chronic kidney disease; N18.31 Chronic kidney disease, stage 3a; E11.22 Type 2 diabetes mellitus with diabetic chronic kidney disease; D63.1 Anemia in chronic kidney disease; K90.0 Celiac disease; K21.9 Gastro-esophageal reflux disease without esophagitis; E78.2 Mixed hyperlipidemia; R65.20 Severe sepsis without septic shock; B96.1 Klebsiella pneumoniae [K. pneumoniae] as the cause of diseases classified elsewhere; G47.33 Obstructive sleep apnea (adult) (pediatric); E87.5 Hyperkalemia; E11.42 Type 2 diabetes mellitus with diabetic polyneuropathy; R32 Unspecified urinary incontinence; Z20.822 Contact with and (suspected) exposure to COVID-19; Z87.440 Personal history of urinary (tract) infections; Z87.891 Personal history of nicotine dependence; Z88.2 Allergy status to sulfonamides; Z88.8 Allergy status to other drugs, medicaments and biological substances; Z79.82 Long term (current) use of aspirin; Z79.899 Other long term (current) drug therapy
CPT/HCPCS: 36410; 36415; 71045; 80048; 80061; 80076; 81001; 82140; 82330; 82803; 82947; 83605; 83735; 83880; 84484; 85025; 85027; 85610; 85730; 87040; 87077; 87086; 87088; 87186; 87205; 87502; 87635; 93005; 93306; 97162; 99285; C1751; J0456; J0696; J1643; J2185; J2270; Q9957

== ENCOUNTER 2022-09-25 14:16 | Emergency (ER) | payer MEDICARE, BC, OTHER, SELFPAY ==
--- NOTE | ~2022-09-25 | XR_ITS ---
EXAMINATION: XR SHOULDER, LEFT CLINICAL INFORMATION: Left shoulder pain status post fall. COMPARISON: 04/06/2018 left shoulder radiographs. TECHNIQUE: AP external rotation, Grashey, scapular Y, and axillary views of the left shoulder. FINDINGS: The patient is status post left shoulder arthroplasty showing good anatomic alignment and no evidence for hardware malfunction. There is no acute fracture. The soft tissues are unremarkable. XR/XR shoulder LT min 2V IMPRESSION: No hardware abnormality. No acute fracture. No significant change.
--- NOTE | ~2022-09-25 | XR_ITS ---
EXAMINATION: XR THORACOLUMBAR SPINE CLINICAL INFORMATION: Back pain status post fall. COMPARISON: Chest radiographs dated 03/19/2021, dorsal spine radiographs dated 05/15/2014. TECHNIQUE: 2 views of the thoracic spine were obtained. FINDINGS: There is generalized osteopenia. Mild to moderate multilevel degenerative changes are seen. Chronic vertebral body compression deformities without significant change. There is associated increased kyphosis. The visualized ribs are intact with the soft tissues are unremarkable. XR/XR thoracic spine 2V IMPRESSION: Chronic compression deformities with associated increased kyphosis multiple level degenerative changes. No definitive acute abnormality.
--- NOTE | ~2022-09-25 | XR_ITS ---
EXAMINATION: XR SHOULDER, RIGHT CLINICAL INFORMATION: Right shoulder pain status post fall. COMPARISON: None TECHNIQUE: AP external rotation, Grashey, scapular Y, and axillary views of the right shoulder. FINDINGS: Severe right glenohumeral degenerative joint changes are seen. Moderate right acromioclavicular degenerative joint changes. Deformity seen in the proximal right humeral diaphysis. The visualized right ribs are intact. The soft tissues are unremarkable. XR/XR shoulder RT min 2V IMPRESSION: 1. Severe right glenohumeral and moderate right acromioclavicular degenerative joint changes. 2. Deformity in the proximal right humeral diaphysis does not appear acute and could represent an old healed fracture. Correlate with physical exam and patient history.
[2022-09-25 14:26] VITALS: BP 141/49; BP 147/84; PULSE 71; PULSE 80; RESP 16; TEMP 36.8; O2SAT 95; O2SAT 96; BMI 34.0
[2022-09-25 15:06] VITALS: BP 155/93; PULSE 93; RESP 14; TEMP 36.9; O2SAT 96
--- NOTE | 2022-09-25 16:11 | ED_ITS ---
HPI - Fall General Chief Complaint: Fall Stated Complaint: Fall/back pain Time Seen by Provider: 09/25/22 16:10 Source: patient Mode of arrival: ambulatory Limitations: no limitations History of Present Illness HPI Narrative: Patient is 76 years old female with history of hypertension mixed hyperlipidemia diabetes mellitus mood disorder CKD history of Gram-negative ESBL bacteremia 09/11 came for the fall which happened 2 days ago at doctor's office slightly her right side to the wall was seen by the PCP at that time but no imaging done. No vision complaining of pain in upper back bilateral shoulder patient does have chronic rotator cuff tendinitis on pain management taking tramadol which she had an O2 nasal no loss of consciousness no shortness of breath no other injuries Related Data Home Medications Medication Instructions Recorded Confirmed blood sugar diagnostic #10 ea 05/17/20 05/27/22 lancets 33 gauge #100 ea 05/17/20 05/27/22 duloxetine 20 mg capsule,delayed 20 mg PO DAILY 05/08/21 08/19/22 release magnesium L-lactate 84 mg 336 mg PO BID 08/19/22 08/20/22 tablet,extended release pregabalin 100 mg capsule 1 cap PO TID 08/19/22 08/19/22 Previous Rx's Medication Instructions Recorded albuterol sulfate 90 mcg/actuation 1 puff inhalation Q6H PRN 03/29/21 aerosol inhaler bronchospasm 30 days #8.5 grams tramadol 50 mg tablet 50 mg PO BID PRN pain 7 days #14 08/05/21 tabs afo right foot #1 ea 09/18/21 Diabetic shoes & 3 pair inserts #1 ea 12/05/21 metoprolol succinate 25 mg 25 mg PO BID #180 tabs 02/21/22 tablet,extended release 24 hr pravastatin 20 mg tablet 20 mg PO DAILY #90 tabs 02/21/22 diphenoxylate-atropine 2.5 1 tab PO BID PRN diarrhea 15 days 02/24/22 mg-0.025 mg tablet #30 tabs paroxetine HCl 40 mg tablet 40 mg PO QAM #90 tabs 03/25/22 dfhidzpwjk-theqykbvgeugt-zwrmlcrf 1 tab PO ONCE PRN headache 15 days 06/25/22 50 mg-325 mg-40 mg tablet #15 tabs blood sugar diagnostic (Accu-Chek #100 ea 06/29/22 Guide test strips) calcium citrate 500 mg PO BID #360 tabs 06/30/22 incontinence pad, liner, disp #125 ea 07/08/22 spironolactone 50 mg tablet 50 mg PO BID #60 tabs 07/16/22 lancets (Accu-Chek Softclix #100 ea 08/04/22 Lancets) diclofenac sodium 1 % topical gel 4 g topical QID #100 grams 08/07/22 (Arthritis Pain (diclofenac)) aspirin 81 mg tablet,delayed 81 mg PO DAILY #30 tabs 08/25/22 release meropenem 1 gram intravenous 1 g IV Q12H #5 ea 08/25/22 solution metoprolol succinate 25 mg 25 mg PO DAILY #30 tabs 08/25/22 tablet,extended release 24 hr dulaglutide 3 mg/0.5 mL 3 mg (0.5 mL) subcut QWEEK 90 days 08/28/22 subcutaneous pen injector #6.5 mL (Trulicity) dulaglutide 1.5 mg/0.5 mL 3 mg subcut QWEEK 28 days #4 mL 09/11/22 subcutaneous pen injector cholecalciferol (vitamin D3) 50 50 mcg PO DAILY #30 caps 09/15/22 mcg (2,000 unit) capsule omeprazole 40 mg capsule,delayed 40 mg PO BID #180 caps 09/15/22 release Allergies Allergy/AdvReac Type Severity Reaction Status Date / Time sulfamethoxazole Allergy Unknown UNKNOWN Verified 06/17/22 11:25 [From BACTRIM] trimethoprim [From BACTRIM] Allergy Unknown UNKNOWN Verified 06/17/22 11:25 adhesive tape Allergy Blister Verified 08/21/22 09:02 from adhesive bandages and rash from plastic tape phenytoin [From Dilantin] Allergy Unknown Verified 08/21/22 09:00 Review of Systems Review of Systems: Yes all other systems are reviewed and are negative FOR[facility]LY [facility] Past Medical History Medical History Adult BMI 30.0-30.9 kg/sq m Age-related osteoporosis without current pathological fracture Anemia B12 deficiency Breast pain, left Celiac disease Chronic kidney disease, stage 3 CKD (chronic kidney disease) Decreased pedal pulses Diabetes mellitus with complication Dyslipidemia Essential hypertension GERD (gastroesophageal reflux disease) Gitelman disease Gout Hiatal hernia IBS (irritable bowel syndrome) Neuropathy Obesity (BMI 30-39.9) On beta jody at home GOPAL on CPAP Osteoarthritis Proteinuria Restrictive lung disease Retinopathy Right rotator cuff tear Seizures 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 Mother Cancer Diabetes Daughter Substance use disorder Mental health disorder Social History Social History Household Members: Spouse and Children Household Members Other:: 2 daughter and their children Housing: House Are you a primary physician assistant primary care to a significant other at home: No Do you presently have visiting nurse or other home services: Yes (PT/OT) Alcohol intake: unknown Patient Tobacco Use Status: Former Tobacco user Tobacco use type: Cigarette Years Smoked: 1964 Smoked in Last 30 Days: No e-Cigarette/Vaping Use: Never Used Second Hand Smoke Exposure: Yes Advance Directives: No Advance Directives Information Provided: Yes service: No Current occupational status: retired Cognitive needs: No Hearing needs: No Vision needs: Yes Physical Exam Vital Signs: Vital Signs: Last Vital Signs Temp 98.5 F 09/25/22 15:06 Pulse 93 09/25/22 15:06 Resp 14 09/25/22 15:06 BP 155/93 H 09/25/22 15:06 Pulse Ox 96 09/25/22 15:06 O2 Del Method 09/25/22 15:06 BMI result Body Mass Index 34.0 Appearance: Alert. Oriented X3. No acute distress. Eyes: PERRLA, No Nystagmus HEENT: Pharynx normal. Oral Mucosa moist ATNC Neck: Normal inspection. Neck supple. CVS: Normal heart rate and rhythm. Pulses normal. Respiratory: No respiratory distress. Equal air entry bilateral, no wheezing/rales/rhonchi Abdomen: Soft and nontender. Bowel sounds are present, Skin: Skin warm and dry. Normal skin color. Normal skin turgor. Extremities: No lower extremity edema. No calf tenderness bilateral diffuse shoulder tenderness with limited abduction no deformity. Neurovascular intact back: Diffuse tenderness upper thoracic vertebral no deformity Neuro: Oriented X 3. No motor deficit. No sensory deficit.No cerebellar signs , cranial nerves II-XII intact Medications Administered Discontinued Medications Generic Name Dose Route Start Last Admin Trade Name Freq PRN Reason Stop Dose Admin Oxycodone HCl 5 mg 09/25/22 16:27 09/25/22 17:20 Oxycodone Hcl Immed Release 5 Mg Tablet PO 09/25/22 16:28 5 mg ONCE ONE Administration Medical Decision Making Medical Decision Making MDM Narrative: Patient with chronic pain on tramadol 180 tablets a month patient years got it 2 days ago. X-ray negative for any acute will discharge patient home advised to continue taking medication as prescribed by PCP Discharge Plan Discharge Clinical Impression: Musculoskeletal back pain, Tendonitis of both rotator cuffs Patient Disposition: Home, Self-Care Instructions: Rotator Cuff Tendinitis (ED), Chronic Back Pain (DC) Additional Instructions: Take your pain medication as prescribed by PCP X-rays negative for any fracture Prescriptions: No Action albuterol sulfate 90 mcg/actuation HFA aerosol inhaler 1 puff inhalation Q6H PRN (Reason: bronchospasm) 30 Days Qty: 8.5 4RF tramadol 50 mg tablet 50 mg PO BID PRN (Reason: pain) 7 Days Qty: 14 0RF (DME) afo right foot See Rx Instructions .Route .MEDSUPPLY Qty: 1 0RF Rx Instructions: wear daily metoprolol succinate 25 mg tablet extended release 24 hr 25 mg PO BID Qty: 180 3RF pravastatin 20 mg tablet 20 mg PO DAILY Qty: 90 3RF paroxetine HCl 40 mg tablet 40 mg PO QAM Qty: 90 3RF bcykfxccdn-qxpljptkcmlow-fuux 50-325-40 mg tablet 1 tab PO ONCE PRN (Reason: headache) 15 Days Qty: 15 0RF Rx Instructions: NOTE: can be addictive and can cause rebound Headaches (DME) Accu-Chek Guide test strips Strip See Rx Instructions .Route Qty: 100 11RF Rx Instructions: As directed three times a day calcium citrate 250 mg calcium tablet 500 mg PO BID Qty: 360 0RF (DME) incontinence pad, liner, disp Pad See Rx Instructions .Route Qty: 125 6RF Rx Instructions: daily use spironolactone 50 mg tablet 50 mg PO BID Qty: 60 2RF (DME) lancets [Accu-Chek Softclix Lancets] Misc See Rx Instructions .ROUTE .MEDSUPPLY Qty: 100 11RF Rx Instructions: As directed three times a day diclofenac sodium [Arthritis Pain (diclofenac)] 1 % gel 4 g topical QID Qty: 100 5RF Rx Instructions: apply to single knee, ankle, foot; for foot includes sole/toes/top of foot Trulicity 3 mg/0.5 mL pen injector 3 mg subcut QWEEK 90 Days Qty: 6.5 3RF dulaglutide 1.5 mg/0.5 mL pen injector 3 mg subcut QWEEK 28 Days Qty: 4 6RF cholecalciferol (vitamin D3) 50 mcg (2,000 unit) capsule 50 mcg PO DAILY Qty: 30 4RF omeprazole 40 mg capsule,delayed release(DR/EC) 40 mg PO BID Qty: 180 0RF pregabalin 100 mg capsule 1 cap PO TID magnesium L-lactate 84 mg Tablet Extended Release 336 mg PO BID meropenem 1 gram Recon Soln 1 g IV Q12H Qty: 5 0RF metoprolol succinate 25 mg Tablet Extended Release 24 Hr 25 mg PO DAILY Qty: 30 0RF Protocol: Hold for SBP/HR < HOLD for SBP < : 90 HOLD for HR < : 60 aspirin 81 mg Tablet,Delayed Release (Dr/Ec) 81 mg PO DAILY Qty: 30 0RF (DME) blood sugar diagnostic Strip See Rx Instructions Not Applicable .MEDSUPPLY Qty: 10 Rx Instructions: As directed (DME) lancets 33 gauge misc See Rx Instructions .ROUTE .MEDSUPPLY Qty: 100 Rx Instructions: As directed duloxetine 20 mg capsule,delayed release(DR/EC) 20 mg PO DAILY diphenoxylate-atropine 2.5-0.025 mg tablet 1 tab PO BID PRN (Reason: diarrhea) 15 Days Qty: 30 0RF (DME) Diabetic shoes & 3 pair inserts Diabetic shoes & 3 pair insert kit See Rx Instructions .ROUTE .MEDSUPPLY Qty: 1 0RF Rx Instructions: as directed
[2022-09-25] MEDS: oxyCODONE HCl Immed Release 5 MG TABLET PO (17:20)
== END 2022-09-25 19:00 | disposition home or self-care (01) ==
PROVIDERS: Emergency Provider Internal Medicine; PCP Nurse Practitioner Family
DX: M54.50 Low back pain, unspecified (principal); M54.6 Pain in thoracic spine; M75.32 Calcific tendinitis of left shoulder; M75.31 Calcific tendinitis of right shoulder
CPT/HCPCS: 72070; 73030; 99283; 99284

== ENCOUNTER 2022-10-08 11:42 | Outpatient (REF) | payer MEDICARE, BC, OTHER, SELFPAY ==
[2022-10-08 11:52] LABS: MANUAL DIFF FLAG NO
[2022-10-08 11:56] LABS: Basophils Percent Auto 0.4 % (0-2); Eosinophils Absolute Auto 0.2 X10*3/uL (0.0-0.4); Hematocrit 31.9 % (37.0-47.0); Hemoglobin 10.4 g/dl (12.0-16.0); Imm Gran Abs Auto 0.09 X10*3/uL (0.00-0.03); Imm Gran Pct Auto 0.9 % (0.0-0.4); Lymphocytes Absolute Auto 0.9 X10*3/uL (1.2-4.9); Lymphocytes Percent Auto 8.6 % (20-40); Mean Corpuscular HGB Conc 32.6 g/dl (31.0-35.0); Mean Corpuscular Hemoglobin 27.4 pg (27.0-33.0); Mean Corpuscular Volume 83.9 fL (80.0-98.0); Mean Platelet Volume 10.4 fL (9.4-12.3); Monocytes Absolute Auto 0.5 X10*3/uL (0.1-1.2); Monocytes Percent Auto 4.6 % (2-11); Neutrophils Absolute Auto 8.2 x10*3/uL (2.0-8.3); Neutrophils Percent Auto 83.5 % (45-73); Platelet Count 537 X10*3/uL (160-400); Red Cell Distribution Width 13.5 % (11.0-16.0); White Blood Count 9.9 X10*3/uL (4.8-10.8)
[2022-10-08 13:52] LABS: Alanine Aminotransferase 9 U/L (0-31); Albumin Level 3.6 g/dL (3.5-5.0); Alkaline Phosphatase 71 U/L (39-117); Anion Gap 17 (12-20); Aspartate Amino Transferase 19 U/L (5-31); Bilirubin Total 0.4 mg/dL (0.0-1.0); Blood Urea Nitrogen 26 mg/dL (9-16); Calcium 9.9 mg/dL (8.4-10.2); Carbon Dioxide 24 mmol/L (22-29); Chloride 103 mmol/L (96-108); Cholesterol 117 mg/dL; Estimated Glomerular Filt Rate 23; Glucose Random 127 mg/dL (60-115); HDL Cholesterol 38 mg/dL; LDL Cholesterol Calculated 63 mg/dl; Potassium 4.3 mmol/L (3.3-5.1); Sodium 140 mmol/L (135-145); Total Protein 7.1 g/dL (6.5-8.0); Triglycerides 83 mg/dL
[2022-10-08 14:08] LABS: TSH reflex Free T4 1.25 uIU/mL (0.32-4.0)
== END 2022-10-08 11:43 | disposition home or self-care (01) ==
LOC: HO.LNP 11:42
PROVIDERS: Visit Provider Nurse Practitioner Family
DX: D64.9 Anemia, unspecified (principal); N39.0 Urinary tract infection, site not specified; E78.5 Hyperlipidemia, unspecified; E11.9 Type 2 diabetes mellitus without complications
CPT/HCPCS: 80053; 80061; 84443; 85025

== ENCOUNTER 2022-10-13 15:35 | Outpatient (REF) | payer MEDICARE, BC, OTHER, SELFPAY ==
[2022-10-13 17:16] LABS: Appearance Urine Clear; Color Urine Yellow; Glucose Urine UA Negative (Negative); Leukocyte Esterase Urine Negative (Negative); Nitrite Urine Negative (Negative); Specific Gravity - Urine <= 1.005 (1.005-1.025); Urine Blood Negative (Negative); Urine Ketones Negative (Negative); Urine Protein Negative (Neg-Trace)
== END 2022-10-13 15:36 | disposition home or self-care (01) ==
LOC: HO.LNP 15:35
PROVIDERS: Visit Provider Nurse Practitioner Family
DX: N18.30 Chronic kidney disease, stage 3 unspecified (principal); R53.1 Weakness
CPT/HCPCS: 81003

== ENCOUNTER 2022-10-14 11:10 | Outpatient (REF) | payer MEDICARE, BC, OTHER, MEDICAID, SELFPAY ==
--- NOTE | 2022-10-14 14:04 | MHC.AU.HA2 ---
Hearing Instrument Fitting- Adult- Binaural Date of Visit: 10/14/22 Hearing Instruments Dispensed: Right Ear: Make, Model, Color, Serial Number: Sabra TONG 1600 ITC R SN: [id number] Color: [place] [employer]ter Repair Warranty: 09/16/2025 Translator And Interpreter Loss and Damage Warranty: 09/16/2025 [facility] Service Plan: 10/15/2023 Battery Size: Rechargeable Type of Wax Guard: HearClear Left Ear: Make, Model, Color, Serial Number: Sabra TONG 1600 ITC R SN: [id number] Color: [place] [employer]ator [employer]ter Repair Warranty: 09/16/2025 Translator And Interpreter Loss and Damage Warranty: 09/16/2025 [facility] Service Plan: 10/15/2023 Battery Size: Rechargeable Type of Wax Guard: HearClear Summary of Fitting: Performed feedback analyzer and real ear measurements. Decreased to experience level 2 due to perceived loudness. Discussed care, use, and rechargeability including manually turning on/off, volume control use, and changing wax guards. Practice insertion and removal. Some difficulty inserting, particularly left hearing aid, due to issues with her rotator cuffs. The left hearing aid also needs to be pushed around a bend to fit securely. Wanda noticed that the left hearing aid did not fit as tightly as the right hearing aid. She will monitor the fit over the next couple of weeks and discuss at follow up. Explained the importance of daily, consistent use and the acclimatization period. Did not pair to cell phone at this time. Recommendations: A hearing instrument follow-up was scheduled. Diagnosis Code(s): Primary Diagnosis: H90.6 Mixed Hearing Loss, Bilateral Signature: Provider: Yamilet Larkin, [facility]
== END 2022-10-14 11:11 | disposition home or self-care (01) ==
LOC: HO.HAP 11:10
PROVIDERS: Visit Provider Nurse Practitioner Family
DX: Z46.1 Encounter for fitting and adjustment of hearing aid (principal); H90.6 Mixed conductive and sensorineural hearing loss, bilateral
CPT/HCPCS: V5011; V5020; V5160; V5259

== ENCOUNTER 2022-11-07 12:26 | Outpatient (REF) | payer MEDICARE, BC, OTHER, MEDICAID, SELFPAY | END 2022-11-07 12:27 | disposition home or self-care (01) | LOC: HO.HAP 12:26 | PROVIDERS: Visit Provider Nurse Practitioner Family | DX: Z13.89 Encounter for screening for other disorder (principal) ==

== ENCOUNTER → 2022-11-27 10:53 | Outpatient (REF) | payer MEDICARE, BC, OTHER, MEDICAID, SELFPAY ==
--- NOTE | 2022-11-27 11:00 | CA_ITS ---
Transthoracic Echocardiogram Patient (Last, First, Middle): Wanda Blum M Gender: Female Date of : 1945 Age: 77 Procedure Date: 11/27/2022 Procedure Type: Transthoracic Echocardiogram Location: OP Height: 157.48 cm Weight: 81.19 kg BSA: 1.82 m2 Heart Rate: bpm BP: 120 / 70 mmHg Lean Specialist: TO Muffler Installer: Michael Ledesma MD Symptoms: I42.9 - Cardiomyopathy, unspecified Study Quality: Fair/Contrast ECG Rhythm: Sinus Conclusions: - The left ventricular systolic function is normal. The calculated ejection fraction is 68% by biplane method. - There is no evidence of regional wall motion abnormalities. Findings Procedure Information Contrast agent, definity, is being given per protocol without apparent complications. Left Ventricle Normal left ventricular cavity size. The left ventricular systolic function is normal. The calculated ejection fraction is 68% by biplane method. There is no evidence of regional wall motion abnormalities. Prior Study Comparison Changes noted compared to prior study dated: 08/19/2022. Improved apical wall motion. Measurements 2D Linear Measurements IVSd: 1.17 0.6-0.9/0.6-1.0 cm LVIDd: 3.51 3.9-5.3/4.2-5.9 cm LVIDd Index: 1.93 2.4-3.2/2.2-3.1 cm/m2 LVIDs: 2.12 2.0-3.6 cm LVPWd: 0.98 0.7-1.1 cm LV Mass: 143.10 67-162/88-224 g LV Mass Index: 78.63 43-95/49-115 g/m2 LVOT Diam: 2.00 3.0+(-)1.3 cm 2D Systolic Function EF 4C: 69.50 >55% EF 2C: 68.60 >55% EF BiP: 67.50 >55% LVOT LVOT Pk Felix: 1.00 LVOT Mn Felix: 0.68 LVOT VTI: 0.20 LVOT Pk Grad: 4.00 LVOT Mn Grad: 2.00 LVOT Diam: 2.00 LVOT Area: 3.14 Updated in Other Vendor System with Status of Final Behzad Albright MD electronically signed on 11/29/2022 12:03:54 PM with status of Final
== END ==
LOC: HO.CARD 10:53
PROVIDERS: PCP Nurse Practitioner Family; Visit Provider Internal Medicine Cardiovascular Disease
DX: I42.9 Cardiomyopathy, unspecified (principal)
CPT/HCPCS: 93308; Q9957

== ENCOUNTER → 2022-12-01 16:03 | Outpatient (BNVA) | payer MEDICARE, BC, OTHER, MEDICAID, SELFPAY | PROVIDERS: PCP Nurse Practitioner Family; Referring Provider Nurse Practitioner Family; Visit Provider Nurse Practitioner Family | DX: Z01.810 Encounter for preprocedural cardiovascular examination (principal); I21.4 Non-ST elevation (NSTEMI) myocardial infarction; I42.9 Cardiomyopathy, unspecified; I10 Essential (primary) hypertension; Z09 Encounter for follow-up examination after completed treatment for conditions other than malignant neoplasm; R06.02 Shortness of breath | CPT/HCPCS: 93005; 99212 ==

== ENCOUNTER 2022-12-17 10:21 | Outpatient (REF) | payer MEDICARE, BC, OTHER, MEDICAID, SELFPAY ==
--- NOTE | ~2022-12-17 | MM_ITS ---
EXAMINATION: MM SCREENING DIGITAL BREAST TOMOSYNTHESIS, BILATERAL CLINICAL INFORMATION: Screening. Asymptomatic. The lifetime risk of breast cancer based on the Tyrer-Cuzick Model is 3%. COMPARISON: Mammography: 09/16/2021, 06/26/2020, 03/15/2019 TECHNIQUE: Digital breast tomosynthesis is performed in both the craniocaudal and mediolateral oblique views along with computer-aided detection (CAD). Synthesized 2D images are generated from the tomosynthesis. Additional left exaggerated CC view is provided. FINDINGS: There are scattered areas of fibroglandular density (ACR BI-RADS breast composition Category b). Breast tissue composition borders on predominantly fatty. Background stromal and fibroglandular densities are stable. There are extensive bilateral benign ductal secretory calcifications and some scattered benign round calcifications again noted. No developing density or architectural abnormality or abnormal calcifications. The axilla are unremarkable. Skin contours are smooth. No significant changes. MM/MM tomosynthesis screening BI IMPRESSION: No mammographic evidence of malignancy. ASSESSMENT: BI-RADS 2: Benign RECOMMENDATION: Routine annual mammography screening. This patient's information was entered into a reminder system with a target due date for their next mammogram.
== END 2022-12-17 10:22 | disposition home or self-care (01) ==
LOC: HO.MAMMO 10:21
PROVIDERS: PCP Nurse Practitioner Family; Visit Provider Nurse Practitioner Family
DX: Z12.31 Encounter for screening mammogram for malignant neoplasm of breast (principal)
CPT/HCPCS: 77063; 77067

== ENCOUNTER → 2022-12-19 10:01 | Outpatient (REF) | payer MEDICARE, BC, OTHER, MEDICAID, SELFPAY ==
--- NOTE | ~2022-12-19 | NM_ITS ---
Myocardial perfusion study Indication: NSTEMI To evaluate for myocardial ischemia Technique: The patient was brought in for a Lexiscan perfusion study on 12/19/2022. Patient performed low-level exercise and was injected 0.4 mg of Lexiscan intravenously. Within a minute of injection, 25 mCi of sestamibi was given intravenously. Images were obtained using the SPECT gamma camera interlaced with the gating device. Images were obtained in supine position. Resting perfusion study was performed on 12/22/2022. Patient was administered 25 mCi of sestamibi intravenously at rest. Images were then obtained in supine position. Images obtained with and without CT attenuation. Total DLP 194 mGy-cm. Images were processed with the software and compared side to side in short axis, horizontal long axis and vertical long axis views. Findings: The stress perfusion study showed non attenuated images show severely reduced uptake in the apex and adjacent apical lateral and apical inferior wall of the LV myocardium. There is also mildly to moderately reduced uptake in the distal septum as well as mildly reduced uptake in the inferior wall of the LV myocardium. Is also mildly reduced uptake in the inferolateral wall of the LV myocardium. Attenuation corrected images show moderately reduced uptake in the distal septum and apex of the LV myocardium as well as mildly reduced uptake in the inferolateral wall of the LV myocardium. There appears to be over correction inferior wall.. The gated study shows normal LV systolic function with calculated LVEF of 72%. LV cavity is normal in size. The gated study shows normal systolic wall thickening and contraction of segments. Resting study shows on non attenuated images there is partial reversibility of the apex as well as the inferoapical and distal lateral wall of the LV myocardium. There is improvement in uptake in the inferolateral and mid inferior of the LV myocardium. Gating at rest reveals normal systolic wall motion with ejection fraction at 60%. The findings are consistent with partially reversible defect of the apex of the lateral and distal inferior wall of the myocardium suggest ischemia with ischemia in inferolateral and mid inferior wall.. NM/NM cardiolite stress test Impression: 1. Myocardial perfusion imaging study shows mixed ischemia and infarction of the apical and adjacent lateral and inferior wall with mild intensity ischemia of the inferolateral and mid inferior wall 2. Gated LVEF is 72% 3. Transient ischemic dilatation not present EKG nondiagnostic for ischemia
--- NOTE | 2022-12-19 10:04 | CA_ITS ---
Acquisition Time: 2022-12-19 10:37:50 Total Exercise Time: 00:02:00 Test Indications: Dyspnea PA Medications: SEE H Protocol: LEXISCAN Max HR: 077 BPM 54% of Pred: 142 BPM Max BP: 134/062 mmHG Max Work Load: 1.0 METS Pharmacological stress test with Lexiscan injection, while sitting and kicking her legs, without anginal symptoms, without arrythmia, with normotensive response to injection, with nondiagnostic EKG for ischemia. Nuclear images pending. Test reviewed with Dr Dao Referred By: Radha Carranza Overread By: RADHA CARRANZA
== END ==
LOC: HO.CARD 10:01
PROVIDERS: PCP Nurse Practitioner Family; Visit Provider Nurse Practitioner Family
DX: I21.4 Non-ST elevation (NSTEMI) myocardial infarction (principal); I42.9 Cardiomyopathy, unspecified
CPT/HCPCS: 78452; 93017; A9500; J0280; J2785

== ENCOUNTER 2022-12-26 14:49 | Outpatient (REF) | payer MEDICARE, BC, OTHER, SELFPAY ==
[2022-12-26 16:23] LABS: Prothrombin Time 11.2 SEC (10.0-13.1)
[2022-12-26 16:25] LABS: Estimated Average Glucose 137 mg/dL; Hemoglobin A1c % 6.4 %
[2022-12-26 16:31] LABS: Magnesium 1.8 mg/dL (1.6-2.6)
== END 2022-12-26 14:50 | disposition home or self-care (01) ==
LOC: HO.HMGCLDS 14:49
PROVIDERS: Nurse Practitioner Family; PCP Nurse Practitioner Family; Visit Provider Nurse Practitioner Family
DX: Z01.810 Encounter for preprocedural cardiovascular examination (principal); R94.39 Abnormal result of other cardiovascular function study; E11.42 Type 2 diabetes mellitus with diabetic polyneuropathy; N18.9 Chronic kidney disease, unspecified; K52.9 Noninfective gastroenteritis and colitis, unspecified; Z79.82 Long term (current) use of aspirin; Z79.899 Other long term (current) drug therapy
CPT/HCPCS: 36415; 83036; 83735; 85610

== ENCOUNTER 2023-01-21 15:59 | Outpatient (REF) | payer MEDICARE, BC, OTHER, SELFPAY ==
[2023-01-21 16:31] LABS: MANUAL DIFF FLAG NO
[2023-01-21 17:54] LABS: Basophils Absolute Auto 0.1 X10*3/uL (0.0-0.2); Basophils Percent Auto 0.5 % (0-2); Eosinophils Absolute Auto 0.5 X10*3/uL (0.0-0.4); Eosinophils Percent Auto 4.8 % (0-4); Hematocrit 32.9 % (37.0-47.0); Hemoglobin 11.1 g/dl (12.0-16.0); Imm Gran Abs Auto 0.04 X10*3/uL (0.00-0.03); Imm Gran Pct Auto 0.4 % (0.0-0.4); Mean Corpuscular HGB Conc 33.7 g/dl (31.0-35.0); Mean Corpuscular Hemoglobin 27.2 pg (27.0-33.0); Mean Corpuscular Volume 80.6 fL (80.0-98.0); Mean Platelet Volume 10.2 fL (9.4-12.3); Monocytes Absolute Auto 0.7 X10*3/uL (0.1-1.2); Monocytes Percent Auto 7.1 % (2-11); Neutrophils Absolute Auto 7.1 x10*3/uL (2.0-8.3); Neutrophils Percent Auto 76.2 % (45-73); Platelet Count 425 X10*3/uL (160-400); Red Blood Count 4.08 X10*6/uL (4.20-5.50); Red Cell Distribution Width 14.9 % (11.0-16.0); White Blood Count 9.3 X10*3/uL (4.8-10.8)
== END 2023-01-21 16:00 | disposition home or self-care (01) ==
LOC: HO.LAB 15:59
PROVIDERS: Visit Provider Internal Medicine Cardiovascular Disease
DX: Z01.810 Encounter for preprocedural cardiovascular examination (principal); I42.9 Cardiomyopathy, unspecified; R93.1 Abnormal findings on diagnostic imaging of heart and coronary circulation
CPT/HCPCS: 36415; 80048; 85025; 85610

== ENCOUNTER → 2023-01-27 23:59 | Outpatient (BNV) | payer MEDICARE, BC, OTHER, SELFPAY | PROVIDERS: PCP Nurse Practitioner Family; Visit Provider Internal Medicine Cardiovascular Disease | DX: R93.1 Abnormal findings on diagnostic imaging of heart and coronary circulation (principal) | CPT/HCPCS: 93458; 99152 ==

== ENCOUNTER 2023-02-19 14:01 | Outpatient (AMB) | payer MEDICARE, BC, OTHER, MEDICAID, SELFPAY ==
[2023-02-19 14:03] VITALS: BP 140/60; PULSE 75; BMI 32.9
--- NOTE | 2023-02-19 14:03 | A.OFFVIS_ITS ---
Intake Vital Signs 02/19/23 14:03 Height 5 ft 2 in Weight 180 lb BMI 32.9 BP 140/60 H Blood Pressure Location Lt brachial Position Sitting Pulse 75 Pulse Source Pulse Oximeter Intake Visit Reasons: Follow up post cardiac cath Intake Note: f/u cardiac cath patient felling some s/b Casket Trimmer Required: No Allergies sulfamethoxazole [From BACTRIM] Allergy (Unknown, Verified 02/19/23 14:12) UNKNOWN trimethoprim [From BACTRIM] Allergy (Unknown, Verified 02/19/23 14:12) UNKNOWN adhesive tape Allergy (Verified 02/19/23 14:12) Blister from adhesive bandages and rash from plastic tape phenytoin [From Dilantin] Allergy (Verified 02/19/23 14:12) Unknown Medication List - Last Reconciled 02/19/23 by ERICA Shay [afo right foot wear daily] albuterol sulfate 90 mcg/actuation 1 puff inhalation Q6H PRN 30 days aspirin 81 mg PO DAILY blood sugar diagnostic As directed blood sugar diagnostic (Accu-Chek Guide test strips) As directed three times a day fvkakzngkd-uszkqmtriobzh-wdds 50-325-40 mg 1 tab PO ONCE PRN 15 days calcium citrate 500 mg (2 x 250 mg calcium) PO BID cholecalciferol (vitamin D3) 50 mcg PO DAILY [Diabetic shoes & 3 pair inserts as directed] diclofenac sodium 1% (Arthritis Pain (diclofenac)) 4 grams topical QID dulaglutide (Trulicity) 3 mg (0.5 mL) subcut QWEEK 90 days duloxetine 20 mg PO DAILY incontinence pad, liner, disp daily use lancets As directed lancets (Accu-Chek Softclix Lancets) As directed three times a day loperamide (Imodium A-D) 2 mg PO Q6H PRN 30 days magnesium L-lactate ER 336 mg PO BID metoprolol succinate ER 25 mg See Protocol PO BID mirabegron ER (Myrbetriq) 50 mg PO DAILY omeprazole 40 mg PO BID paroxetine HCl 40 mg PO QAM pravastatin 20 mg PO DAILY pregabalin 100 mg PO TID 30 days spironolactone 50 mg PO BID tramadol 50 mg PO BID PRN walker front with wheels only HPI Follow up post cardiac cath HPI Details Wanda is a 77-year-old female past medical history hypertension, hyperlipidemia, diabetes, chronic kidney disease, obstructive sleep apnea with CPAP use, obesity, Gitelmans syndrome with chronically low magnesium who was admitted to [facility] in July 2022 with UTI, pneumonia, sepsis and found to have elevated troponins and abnormal echocardiogram with apical akinesis.? She was treated for NSTEMI with heparin for 48 hours.? Her discharge meds including aspirin, pravastatin, metoprolol. As outpatient a repeat echo showed normalization of wall motion. She was preop for colonoscopy so she underwent cardiac stress test which was abnormal and led to cardiac catheterization showing normal coronary arteries. Today she reports that she is angry that she had to go through all this testing and her heart is fine. She denies any chest discomfort at rest or with activity. She has some shortness of breath with activity but is mostly sedentary. She tells me she does not walk due to neuropathy. No PND, orthopnea, no edema at present. No palpitations, dizziness, presyncope, syncope. Right radial catheterization site feels good. Taking meds as directed. is present. [facility] Medical History Adult BMI 30.0-30.9 kg/sq m Age-related osteoporosis without current pathological fracture Anemia AVN (avascular necrosis of bone) B12 deficiency Breast pain, left Celiac disease Chronic kidney disease, stage 3 CKD (chronic kidney disease) Decreased pedal pulses Diabetes mellitus with complication Dyslipidemia Essential hypertension GERD (gastroesophageal reflux disease) Gitelman disease Gout Hiatal hernia IBS (irritable bowel syndrome) Neuropathy Obesity (BMI 30-39.9) On beta jody at home GOPAL on CPAP Osteoarthritis Proteinuria Restrictive lung disease Retinopathy Right rotator cuff tear Seizures 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 Mother Cancer Diabetes Daughter Substance use disorder Mental health disorder Social History Household Members: Spouse and Children Household Members Other:: 2 daughter and their children Housing: House Are you a primary healthcare insurance sales agent to a significant other at home: No Do you presently have visiting nurse or other home services: Yes (PT/OT) Alcohol intake: unknown Patient Tobacco Use Status: Former Tobacco user Tobacco use type: Cigarette Years Smoked: 1963 e-Cigarette/Vaping Use: Never Used Second Hand Smoke Exposure: Yes service: No Current occupational status: retired Cognitive needs: No Hearing needs: No Vision needs: Yes Review of Systems Const All systems reviewed & are unremarkable except as noted in HPI and below ENT Reports dizziness Card Denies chest pain, Denies chest pain at rest, Denies chest pain with activity, Denies rapid heart rate, Denies pedal edema, Denies edema, Denies leg edema, Denies lightheadedness, Denies palpitations, Denies dyspnea, Reports dyspnea on exertion and Denies orthopnea Resp Denies cough, Denies dyspnea and Reports dyspnea on exertion GI Denies hematochezia and Denies change in stool character Musc Details: Reported neuropathy, uses wheelchair Reports abnormal gait, Reports limited range of motion, Reports muscle cramps, Denies muscle weakness, Denies numbness, Denies radiating pain into limb, Denies stiffness and Denies tingling Neuro Reports abnormal gait, Reports dizziness, Denies numbness and Denies tingling Endo Denies palpitations Physical Exam Vital Signs: Last Vital Signs Pulse 75 02/19/23 14:03 BP 140/60 H 02/19/23 14:03 BMI result Body Mass Index 32.9 Const Other: Ambulates with walker. General: cooperative and no acute distress Orientation/consciousness: patient oriented x3 Neck Neck: Yes normal visual inspection and Yes no JVD Carotids: normal carotid upstroke Chest Chest palpation & inspection: normal inspection of the chest Resp Other: Fine rales noted in each lower lobe Effort & Inspection: normal respiratory effort Auscultation: clear to auscultation bilaterally, no rhonchi and no wheezes Cardio Jugular venous distension: no JVD Rate: regular rate Rhythm: regular rhythm Heart sounds: S1 normal heart sound present, S2 normal heart sound present, no murmurs and no rubs GI Inspection: Yes normal to inspection Neuro General: patient oriented x3 Extrem Other: Right radial catheterization site well healed with easily palpable radial pulse, right hand assessment normal General: Yes normal to inspection and No no pedal edema Psych Appearance: grossly normal Mental Status: mental status grossly normal Speech and movement: Normal speech and movement present Assessment & Plan Assessment & Plan (1) NSTEMI (non-ST elevated myocardial infarction): Code(s): I21.4 - Non-ST elevation (NSTEMI) myocardial infarction Plan: [facility] [place] 2022 with UTI, pneumonia, sepsis. Troponins elevated up to 1757. Echocardiogram showed EF 55-60%, entire apex is akinetic, RV normal size and function, mild aortic stenosis. She was treated for NSTEMI with heparin drip for 48 hours. She was put on aspirin, beta-jody, and continued on statin. Ischemic workup not appropriate at that time. Thought to have Takotsubo cardiomyopathy versus possible LAD territory ischemia. Echocardiogram done on 11/27/2022 showed EF 68% with no regional wall motion abnormalities. She was preop for colonoscopy and underwent cardiac stress test on 12/22/2022 showing mixed ischemia and infarct in the apical and adjacent lateral and inferior wall with mild intensity ischemia of the inferior lateral and mid inferior wall. She then underwent a cardiac catheterization on 01/27/2023 showing completely normal coronary arteries. Reviewed all the above with her and she expresses frustration that she needed to go through all the above testing. Offered reassurance that sequence of cardiac testing was appropriate based on our findings. Described takotsubo cardiomyopathy and potential chance of recurrence at some point. Will have her continue on metoprolol XL which she takes 25 mg b.i.d.. She does not need daily aspirin. She has chronic shortness of breath with activity which is likely related to her COPD, obesity, sedentary lifestyle. She is not on Kemal/Arb due to chronic kidney disease. Signs and symptoms of heart failure reviewed with her. Cardiology follow-up in 6 months, sooner if n eeded (2) Cardiomyopathy: Code(s): I42.9 - Cardiomyopathy, unspecified Plan: As above (3) SOB (shortness of breath): Comment: DYSPNEA ON EXERTION IS DUE TO COMBINATION OF, OBESITY, RESTRICTIVE LUNG DISEASE, ANEMIA (HB. 10 GM ) AND SOME DECONDITIONING IT IS HOLDING STABLE. Code(s): R06.02 - Shortness of breath Plan: As above (4) Essential hypertension: Code(s): I10 - Essential (primary) hypertension Plan: Well controlled at present time. No med changes made (5) Preop cardiovascular exam: Code(s): Z01.810 - Encounter for preprocedural cardiovascular examination Plan: Preop for colonoscopy. Recent abnormal echocardiogram most suggestive of Takotsubo cardiomyopathy. Cardiac catheterization showing normal coronaries. T- wave that abnormalities that had been seen on EKG have resolved. She has no reports of chest discomfort and no clinical signs of heart failure. She has chronic shortness of breath for noncardiac reasons. She is low cardiac risk to proceed with colonoscopy however she tells me that she will need to have cataract surgery 1st. (6) S/P cardiac catheterization: Comment: 01/27/2023, normal coronary arteries Code(s): Z98.890 - Other specified postprocedural states Coding Level of Care Code Est Pt Level 4 (47353) Diagnoses NSTEMI (non-ST elevated myocardial infarction) I21.4 Cardiomyopathy I42.9 SOB (shortness of breath) R06.02 Essential hypertension I10 Preop cardiovascular exam Z01.810 S/P cardiac catheterization Z98.890 Time Spent (min) 28 Comment Chart review, documentation, interview, assessment, education
== END 2023-02-19 14:45 | disposition home or self-care (01) ==
PROVIDERS: PCP Nurse Practitioner Family; Referring Provider Nurse Practitioner Family; Visit Provider Nurse Practitioner Family
DX: I21.4 Non-ST elevation (NSTEMI) myocardial infarction (principal); I42.9 Cardiomyopathy, unspecified; R06.02 Shortness of breath; I10 Essential (primary) hypertension; Z01.810 Encounter for preprocedural cardiovascular examination; Z98.890 Other specified postprocedural states
CPT/HCPCS: 99214

== ENCOUNTER → 2023-02-19 14:01 | Outpatient (BNVA) | payer MEDICARE, BC, OTHER, MEDICAID, SELFPAY | PROVIDERS: PCP Nurse Practitioner Family; Referring Provider Nurse Practitioner Family; Visit Provider Nurse Practitioner Family | DX: Z01.810 Encounter for preprocedural cardiovascular examination (principal); I21.4 Non-ST elevation (NSTEMI) myocardial infarction; I42.9 Cardiomyopathy, unspecified; I10 Essential (primary) hypertension; R06.02 Shortness of breath; Z98.890 Other specified postprocedural states | CPT/HCPCS: 99212 ==

== ENCOUNTER 2023-04-01 14:12 | Outpatient (REF) | payer MEDICARE, BC, OTHER, SELFPAY ==
[2023-04-01 16:37] LABS: MANUAL DIFF FLAG NO
[2023-04-01 16:49] LABS: Basophils Absolute Auto 0.1 X10*3/uL (0.0-0.2); Basophils Percent Auto 0.4 % (0-2); Eosinophils Absolute Auto 0.3 X10*3/uL (0.0-0.4); Eosinophils Percent Auto 2.4 % (0-4); Hematocrit 33.7 % (37.0-47.0); Imm Gran Abs Auto 0.12 X10*3/uL (0.00-0.03); Imm Gran Pct Auto 1.1 % (0.0-0.4); Lymphocytes Absolute Auto 1.1 X10*3/uL (1.2-4.9); Lymphocytes Percent Auto 9.4 % (20-40); Mean Corpuscular HGB Conc 32.6 g/dl (31.0-35.0); Mean Corpuscular Hemoglobin 26.3 pg (27.0-33.0); Mean Corpuscular Volume 80.6 fL (80.0-98.0); Mean Platelet Volume 11.1 fL (9.4-12.3); Monocytes Absolute Auto 0.7 X10*3/uL (0.1-1.2); Monocytes Percent Auto 6.3 % (2-11); Neutrophils Absolute Auto 9.1 x10*3/uL (2.0-8.3); Neutrophils Percent Auto 80.4 % (45-73); Platelet Count 508 X10*3/uL (160-400); Red Blood Count 4.18 X10*6/uL (4.20-5.50); White Blood Count 11.3 X10*3/uL (4.8-10.8)
[2023-04-01 16:52] LABS: Estimated Average Glucose 126 mg/dL
[2023-04-01 17:01] LABS: Alanine Aminotransferase 8 U/L (0-31); Albumin Level 3.8 g/dL (3.5-5.0); Alkaline Phosphatase 68 U/L (39-117); Anion Gap 14 (12-20); Aspartate Amino Transferase 21 U/L (5-31); Bilirubin Total 0.4 mg/dL (0.0-1.0); Blood Urea Nitrogen 24 mg/dL (9-16); Calcium 10.4 mg/dL (8.4-10.2); Carbon Dioxide 24 mmol/L (22-29); Chloride 100 mmol/L (96-108); Cholesterol 152 mg/dL (<200); Estimated Glomerular Filt Rate 24; Glucose Fasting 110 mg/dL (60-99); Glucose Random 111 mg/dL (60-115); HDL Cholesterol 38 mg/dL (>40); LDL Cholesterol Calculated 75 mg/dL (<100); Potassium 4.8 mmol/L (3.3-5.1); Sodium 133 mmol/L (135-145); Total Protein 7.8 g/dL (6.5-8.0); Triglycerides 198 mg/dL (<150)
[2023-04-01 17:02] LABS: Partial Thromboplastin Time 32.4 SEC (26.0-36.4)
[2023-04-01 17:18] LABS: TSH reflex Free T4 1.38 uIU/mL (0.32-4.0)
[2023-04-01 17:29] LABS: Folate 4.9 ng/mL (> or = 4.0); Vitamin B12 285 pg/mL (200-900)
== END 2023-04-01 14:13 | disposition home or self-care (01) ==
LOC: HO.HMGCLDS 14:12
PROVIDERS: PCP Nurse Practitioner Family; Visit Provider Nurse Practitioner Family
DX: Z01.818 Encounter for other preprocedural examination (principal); D64.9 Anemia, unspecified; E53.8 Deficiency of other specified B group vitamins; E11.29 Type 2 diabetes mellitus with other diabetic kidney complication; E78.5 Hyperlipidemia, unspecified
CPT/HCPCS: 36415; 80053; 80061; 82607; 82746; 83036; 84443; 85025; 85610; 85730

== ENCOUNTER 2023-04-02 14:01 | Outpatient (AMB) | payer MEDICARE, BC, OTHER, SELFPAY ==
--- NOTE | 2023-04-02 14:02 | A.OFFPC_ITS ---
Vital Signs 04/02/23 14:06 Height 5 ft 2 in Weight 180 lb BMI 32.9 BP 130/80 Blood Pressure Location Rt brachial Position Sitting Pulse 72 Pulse Source Pulse Oximeter Pulse Oximetry (%) 93 Oxygen Delivery Method Room Air Intake Visit Reasons: Cataract Surgery, eval for home PT Allergies adhesive tape Allergy (Severe, Verified 04/02/23 14:06) Blister from adhesive bandages and rash from plastic tape phenytoin [From Dilantin] Allergy (Severe, Verified 04/02/23 14:06) Rash sulfamethoxazole [From BACTRIM] Allergy (Unknown, Verified 04/02/23 14:06) UNKNOWN trimethoprim [From BACTRIM] Allergy (Unknown, Verified 04/02/23 14:06) UNKNOWN Tobacco use date assessed: 12/29/22 Fall risk assessment: No Falls in past year Last assessed Fall Risk: 04/02/23 HPI Cataract Surgery, eval for home PT HPI Details Pt is here for a pre-op evaluation. She is scheduled to undergo right cataract surgery on 04/06. Pt c/o dizziness. She is requesting a referral for home PT (vestibular rehab), will refer. Pt c/o right calf discomfort. It feels like when I had a clot. She denies any warmth, redness, or swelling. Will order US to r/t DVT. recent leukocytosis, ordering chest XR and UA/culture. pt denies any fevers or chills, SOB reported with exertion (though most likely from deconditioning) [facility] Medical History (Updated 04/02/23 @ 14:57 by Mitul Garcia, [facility]) AVN (avascular necrosis of bone) Type 2 diabetes mellitus with diabetic polyneuropathy Hiatal hernia IBS (irritable bowel syndrome) GERD (gastroesophageal reflux disease) On beta jody at home Restrictive lung disease Obesity (BMI 30-39.9) GOPAL on CPAP Anemia B12 deficiency Vitamin D deficiency Breast pain, left Chronic kidney disease, stage 3 Decreased pedal pulses Diabetes mellitus with complication Retinopathy Celiac disease Right rotator cuff tear Osteoarthritis Seizures Gout CKD (chronic kidney disease) Neuropathy Gitelman disease Essential hypertension Age-related osteoporosis without current pathological fracture Type 2 diabetes mellitus with other diabetic kidney complication Proteinuria Dyslipidemia Type 2 diabetes mellitus with chronic kidney disease Adult BMI 30.0-30.9 kg/sq m Surgical History S/P cardiac catheterization History of carpal tunnel surgery of right wrist History of back surgery Hx of colonoscopy History of total left knee replacement History of left shoulder replacement History of revision of total replacement of right hip joint Hx of fracture of fibula Family History Father No problems noted. Mother Cancer Diabetes Daughter Substance use disorder Mental health disorder Social History Household Members: Spouse and Children Household Members Other:: 2 daughter and their children Housing: House Are you a primary care clinician to a significant other at home: No Do you presently have visiting nurse or other home services: Yes (PHARMACEUTICAL LABORATORY TECHNICIAN 1 x week) Alcohol intake: unknown Patient Tobacco Use Status: Former Tobacco user Quit Date: 1963 Tobacco use type: Cigarette Years Smoked: 1963 e-Cigarette/Vaping Use: Never Used Second Hand Smoke Exposure: Yes service: No Current occupational status: retired Cognitive needs: No Hearing needs: No Vision needs: Yes Questionnaire Thrive Questionnaire Date Thrive assessed: 05/08/21 Review of Systems Const Denies chills and Denies fever(s) Eyes Denies blurry vision ENT Reports dizziness and Denies sore throat Card Denies chest pain at rest, Denies chest pain with activity, Denies diaphoresis, Denies dyspnea and Denies dyspnea on exertion Resp Denies cough, Denies dyspnea, Denies dyspnea on exertion and Denies wheezing GI Denies abdominal pain, Denies melena, Denies hematochezia, Denies constipation, Denies diarrhea and Denies loose stools Denies hematuria Musc Denies numbness and Denies tingling Skin/Breast Denies lesions Neuro Reports dizziness, Denies numbness and Denies tingling Psych Denies anxiety, Denies depression, Denies homicidal ideation, Denies suicidal ideation and Denies other (substance abuse) Aller/Immun Denies wheezing Physical exam (Primary Care) Vital Signs: Last Vital Signs Pulse 72 04/02/23 14:06 BP 130/80 04/02/23 14:06 Pulse Ox 93 04/02/23 14:06 Oxygen Delivery Method Room Air 04/02/23 14:06 BMI result Body Mass Index 32.9 Tobacco/Smoking Status: Tobacco use Status Tobacco use date assessed 12/29/22 04/02/23 14:03 Patient Tobacco Use Status Former Tobacco user 04/02/23 14:03 Tobacco use type Cigarette 04/02/23 14:03 e-Cigarette/Vaping Use Never Used 04/02/23 14:03 Thrive Assessment: Date of Thrive Assessment Date Thrive assessed 05/08/21 04/02/23 14:03 Const General: cooperative Nutritional Appearance: obese Orientation/consciousness: patient oriented x3 Limitations: wheelchair Neck Neck: Yes no lymphadenopathy Resp Other: faint scattered crackles to bilat bases Effort & Inspection: normal respiratory effort Cardio Rate: regular rate Rhythm: regular rhythm Heart sounds: S1 normal heart sound present, S2 normal heart sound present and no murmurs Neuro General: patient oriented x3 and moves all extremities Extrem Other: right calf not TTP Psych Appearance: grossly normal Mental Status: mental status grossly normal Speech and movement: Normal speech and movement present Affect: normal affect Attitude: cooperative Thought process: Normal thought process present Thought content: Normal thought content present Insight: Good insight present (Psych) Judgement: Good judgement present (Psych) Assessment and Plan Assessment & Plan (1) Type 2 diabetes mellitus with chronic kidney disease: Code(s): E11.22 - Type 2 diabetes mellitus with diabetic chronic kidney disease (2) Right calf pain: Code(s): M79.661 - Pain in right lower leg Plan: US ordered (3) Dizziness: Code(s): R42 - Dizziness and giddiness (4) Pre-op evaluation: Code(s): Z01.818 - Encounter for other preprocedural examination Plan The patient agreed to the use of a registered medical assistant for this encounter. Scribed for SHARON Morin-BC by Mercy Kwan registered medical assistant, on 04/02/2023 at 14:30 EST. Orders: Orders AMB EKG-In Office Today Z01.818 - Encounter for other preprocedural examination PT Evaluation and Treatment Today R42 - Dizziness and giddiness US venous duplex LE RT Today M79.661 - Pain in right lower leg Coding Level of Care Code Est Pt Prev Care >65y(54199) Diagnoses Type 2 diabetes mellitus with chronic kidney disease E11.22 Right calf pain M79.661 Dizziness R42 Pre-op evaluation Z01.819
[2023-04-02 14:06] VITALS: BP 130/80; PULSE 72; O2SAT 93; BMI 32.9
== END 2023-04-02 16:13 | disposition home or self-care (01) ==
PROVIDERS: PCP Nurse Practitioner Family; Visit Provider Nurse Practitioner Family
DX: Z01.818 Encounter for other preprocedural examination (principal); H26.9 Unspecified cataract; E11.22 Type 2 diabetes mellitus with diabetic chronic kidney disease; N18.30 Chronic kidney disease, stage 3 unspecified; M79.661 Pain in right lower leg; R42 Dizziness and giddiness
CPT/HCPCS: 99213

== ENCOUNTER 2023-04-02 15:07 | Outpatient (REF) | payer MEDICARE, BC, OTHER, SELFPAY ==
--- NOTE | ~2023-04-02 | XR_ITS ---
EXAMINATION: XR CHEST CLINICAL INFORMATION: Elevated white blood cell count. COMPARISON: Chest x-ray 08/19/2022 TECHNIQUE: Frontal view of the chest was obtained. FINDINGS: There is a mild cardiomegaly with normal pulmonary vascularity. The lungs are expanded with left basilar atelectasis. There is blunting of left CP angle likely small pleural effusion. There is air-fluid level seen in the retrocardiac area likely from hiatal hernia. XR/XR chest 1V IMPRESSION: Small left pleural effusion with underlying left lung base atelectasis. Cardiomegaly. Suspect moderate size hiatal hernia.
[2023-04-02 16:38] LABS: Appearance Urine Clear; Color Urine Yellow; Glucose Urine UA Negative (Negative); Leukocyte Esterase Urine Small (1+) (Negative); Nitrite Urine Negative (Negative); UMIC TRIGGER UACC YES; Urine Blood Negative (Negative); Urine Ketones Negative (Negative); Urine Protein Trace mg/dL (Neg-Trace)
[2023-04-02 16:58] LABS: Bacteria Urine None Seen (None Seen); Hyaline Casts Urine 0-2 /LPF (0-2); RBC Urine 0-2 /HPF (0-2); Squamous Epithelial Cell Urine 0-2 /HPF (0-2); UACC Culture Trigger YES
== END 2023-04-02 15:08 | disposition home or self-care (01) ==
LOC: HO.HMGCX 15:07
PROVIDERS: PCP Nurse Practitioner Family; Visit Provider Nurse Practitioner Family
DX: Z13.89 Encounter for screening for other disorder (principal)
CPT/HCPCS: 71045; 81001; 87086

== ENCOUNTER 2023-04-02 16:10 | Outpatient (REF) | payer MEDICARE, BC, OTHER, SELFPAY ==
--- NOTE | ~2023-04-02 | US_ITS ---
EXAMINATION: US VENOUS ULTRASOUND WITH DOPPLER LOWER EXTREMITY, RIGHT CLINICAL INFORMATION: Pain in right leg, rule out DVT COMPARISON: 11/04/2016 TECHNIQUE: Ultrasound of the deep veins is performed from the hip to the calf with compression sonography and color and pulse Doppler assessment. Spectral analysis with color-flow imaging is performed. FINDINGS: There is normal venous compression and respiratory variation and augmented flow. The visualized common femoral vein, superficial femoral vein, profunda femoral vein, popliteal vein, and the trifurcation region shows no evidence of deep venous thrombosis. There is no significant popliteal fossa cyst. US/US venous duplex LE RT IMPRESSION: No DVT demonstrated in the right lower extremity.
== END 2023-04-02 16:11 | disposition home or self-care (01) ==
LOC: HO.US 16:10
PROVIDERS: Visit Provider Nurse Practitioner Family
DX: M79.661 Pain in right lower leg (principal); R42 Dizziness and giddiness; E11.22 Type 2 diabetes mellitus with diabetic chronic kidney disease; N18.9 Chronic kidney disease, unspecified; R82.90 Unspecified abnormal findings in urine
CPT/HCPCS: 71045; 81001; 87086; 93971

== ENCOUNTER 2023-04-20 14:08 | Outpatient (REF) | payer MEDICARE, BC, OTHER, SELFPAY ==
--- NOTE | ~2023-04-20 | XR_ITS ---
EXAMINATION: XR CHEST CLINICAL INFORMATION: Elevated white blood cell count COMPARISON: Previous chest x-ray most recent March 2023 TECHNIQUE: Frontal view of the chest was obtained. FINDINGS: The cardiac and mediastinal contours are stable. There is an air-fluid level projecting over the heart probably representing an esophageal hernia similar to previous exams. The lungs are clear. There is blunting at the costophrenic angles questionable for small bilateral pleural effusions. No pneumothorax. Degenerative changes to the spine and right shoulder. Left shoulder arthroplasty. XR/XR chest 1V IMPRESSION: No evidence for acute disease in the chest. Air-fluid level projecting over the heart probably representing an esophageal hernia.
[2023-04-20 15:57] LABS: MANUAL DIFF FLAG NO
[2023-04-20 16:05] LABS: Basophils Absolute Auto 0.1 X10*3/uL (0.0-0.2); Basophils Percent Auto 0.5 % (0-2); Eosinophils Absolute Auto 0.2 X10*3/uL (0.0-0.4); Eosinophils Percent Auto 1.7 % (0-4); Hematocrit 32.3 % (37.0-47.0); Hemoglobin 10.5 g/dl (12.0-16.0); Imm Gran Abs Auto 0.08 X10*3/uL (0.00-0.03); Imm Gran Pct Auto 0.8 % (0.0-0.4); Lymphocytes Absolute Auto 1.1 X10*3/uL (1.2-4.9); Mean Corpuscular HGB Conc 32.5 g/dl (31.0-35.0); Mean Corpuscular Hemoglobin 26.4 pg (27.0-33.0); Mean Corpuscular Volume 81.2 fL (80.0-98.0); Mean Platelet Volume 11.8 fL (9.4-12.3); Monocytes Absolute Auto 0.4 X10*3/uL (0.1-1.2); Monocytes Percent Auto 4.4 % (2-11); Neutrophils Absolute Auto 7.7 x10*3/uL (2.0-8.3); Neutrophils Percent Auto 80.6 % (45-73); Platelet Count 441 X10*3/uL (160-400); Red Blood Count 3.98 X10*6/uL (4.20-5.50); Red Cell Distribution Width 15.3 % (11.0-16.0); White Blood Count 9.5 X10*3/uL (4.8-10.8)
== END 2023-04-20 14:09 | disposition home or self-care (01) ==
LOC: HO.HMGCX 14:08
PROVIDERS: PCP Nurse Practitioner Family; Visit Provider Nurse Practitioner Family
DX: D64.9 Anemia, unspecified (principal); D72.829 Elevated white blood cell count, unspecified
CPT/HCPCS: 36415; 71045; 85025

== ENCOUNTER 2023-04-21 10:30 | Outpatient (REF) | payer MEDICARE, BC, OTHER, SELFPAY ==
[2023-04-21 13:39] LABS: Appearance Urine Clear; Color Urine Yellow; Glucose Urine UA Negative (Negative); Leukocyte Esterase Urine Moderate (2+) (Negative); Nitrite Urine Negative (Negative); PH 6.5 (5.0-9.0); Specific Gravity - Urine <= 1.005 (1.005-1.025); UMIC TRIGGER UACC YES; Urine Blood Negative (Negative); Urine Ketones Negative (Negative); Urine Protein Negative (Neg-Trace)
[2023-04-21 13:46] LABS: Bacteria Urine None Seen (None Seen); Hyaline Casts Urine 0-2 /LPF (0-2); RBC Urine 0-2 /HPF (0-2); Squamous Epithelial Cell Urine 0-2 /HPF (0-2); UACC Culture Trigger YES
== END 2023-04-21 10:31 | disposition home or self-care (01) ==
LOC: HO.HMGCLNP 10:30
PROVIDERS: PCP Nurse Practitioner Family; Visit Provider Nurse Practitioner Family
DX: D72.819 Decreased white blood cell count, unspecified (principal); R30.0 Dysuria
CPT/HCPCS: 81001; 87086

== ENCOUNTER 2023-07-14 14:42 | Outpatient (REF) | payer MEDICARE, BC, OTHER, SELFPAY ==
[2023-07-14 16:22] LABS: MANUAL DIFF FLAG NO
[2023-07-14 16:30] LABS: Basophils Percent Auto 0.2 % (0-2); Eosinophils Absolute Auto 0.3 X10*3/uL (0.0-0.4); Eosinophils Percent Auto 2.1 % (0-4); Hematocrit 31.2 % (37.0-47.0); Hemoglobin 10.3 g/dl (12.0-16.0); Imm Gran Abs Auto 0.05 X10*3/uL (0.00-0.03); Imm Gran Pct Auto 0.4 % (0.0-0.4); Mean Corpuscular Hemoglobin 27.2 pg (27.0-33.0); Mean Corpuscular Volume 82.3 fL (80.0-98.0); Mean Platelet Volume 11.2 fL (9.4-12.3); Monocytes Absolute Auto 0.5 X10*3/uL (0.1-1.2); Monocytes Percent Auto 3.7 % (2-11); Neutrophils Absolute Auto 10.6 x10*3/uL (2.0-8.3); Neutrophils Percent Auto 85.6 % (45-73); Platelet Count 440 X10*3/uL (160-400); Red Blood Count 3.79 X10*6/uL (4.20-5.50); Red Cell Distribution Width 15.9 % (11.0-16.0); White Blood Count 12.4 X10*3/uL (4.8-10.8)
[2023-07-14 16:44] LABS: Estimated Average Glucose 128 mg/dL; Hemoglobin A1c % 6.1 % (<6.0)
== END 2023-07-14 14:43 | disposition home or self-care (01) ==
LOC: HO.HMGCLDS 14:42
PROVIDERS: PCP Nurse Practitioner Family; Visit Provider Nurse Practitioner Family
DX: D72.829 Elevated white blood cell count, unspecified (principal); E11.9 Type 2 diabetes mellitus without complications
CPT/HCPCS: 36415; 83036; 85025

== ENCOUNTER 2023-07-15 14:37 | Outpatient (REF) | payer MEDICARE, BC, OTHER, SELFPAY ==
--- NOTE | ~2023-07-15 | XR_ITS ---
EXAMINATION: XR CHEST CLINICAL INFORMATION: Elevated white blood cell count COMPARISON: 04/20/2023 TECHNIQUE: 2 views of the chest were obtained. FINDINGS: Large hiatal hernia. There is infiltrate at the left base and small left effusion but this appears chronic. There is very mild fibrotic change in the peripheral right mid to upper lung which is chronic. Heart size normal with normal caliber pulmonary vessels. There is end-stage degenerative change in the right shoulder. There is a left humeral prosthesis. XR/XR chest 2V IMPRESSION: Chronic changes. Large hiatal hernia.
[2023-07-15 16:10] LABS: MANUAL DIFF FLAG NO
[2023-07-15 16:17] LABS: Urine Cytology See Pathology rpt
[2023-07-15 16:21] LABS: Appearance Urine Clear; Color Urine Yellow; Glucose Urine UA Negative (Negative); Leukocyte Esterase Urine Negative (Negative); Nitrite Urine Negative (Negative); PH 7.5 (5.0-9.0); Urine Blood Negative (Negative); Urine Ketones Negative (Negative); Urine Protein Trace mg/dL (Neg-Trace)
[2023-07-15 16:22] LABS: Basophils Percent Auto 0.3 % (0-2); Eosinophils Absolute Auto 0.3 X10*3/uL (0.0-0.4); Eosinophils Percent Auto 3.4 % (0-4); Hematocrit 30.5 % (37.0-47.0); Hemoglobin 10.1 g/dl (12.0-16.0); Imm Gran Abs Auto 0.06 X10*3/uL (0.00-0.03); Imm Gran Pct Auto 0.7 % (0.0-0.4); Lymphocytes Absolute Auto 1.4 X10*3/uL (1.2-4.9); Lymphocytes Percent Auto 16.3 % (20-40); Mean Corpuscular HGB Conc 33.1 g/dl (31.0-35.0); Mean Corpuscular Hemoglobin 27.1 pg (27.0-33.0); Mean Corpuscular Volume 81.8 fL (80.0-98.0); Mean Platelet Volume 11.1 fL (9.4-12.3); Monocytes Absolute Auto 0.5 X10*3/uL (0.1-1.2); Monocytes Percent Auto 5.6 % (2-11); Neutrophils Absolute Auto 6.5 x10*3/uL (2.0-8.3); Neutrophils Percent Auto 73.7 % (45-73); Platelet Count 443 X10*3/uL (160-400); Red Blood Count 3.73 X10*6/uL (4.20-5.50); Red Cell Distribution Width 15.9 % (11.0-16.0); White Blood Count 8.8 X10*3/uL (4.8-10.8)
[2023-07-15 17:20] LABS: Alanine Aminotransferase 9 U/L (0-31); Albumin Level 3.6 g/dL (3.5-5.0); Alkaline Phosphatase 53 U/L (39-117); Anion Gap 15 (12-20); Aspartate Amino Transferase 18 U/L (5-31); Bilirubin Total 0.3 mg/dL (0.0-1.0); Blood Urea Nitrogen 24 mg/dL (9-16); Calcium 9.6 mg/dL (8.4-10.2); Carbon Dioxide 24 mmol/L (22-29); Chloride 99 mmol/L (96-108); Cholesterol 137 mg/dL (<200); Estimated Glomerular Filt Rate 24; Glucose Fasting 131 mg/dL (60-99); HDL Cholesterol 32 mg/dL (>40); LDL Cholesterol Calculated 59 mg/dL (<100); Sodium 134 mmol/L (135-145); TSH reflex Free T4 1.53 uIU/mL (0.32-4.0); Total Protein 7.3 g/dL (6.5-8.0); Triglycerides 233 mg/dL (<150)
== END 2023-07-15 14:38 | disposition home or self-care (01) ==
LOC: HO.HMGCLDS 14:37
PROVIDERS: PCP Nurse Practitioner Family; Visit Provider Nurse Practitioner Family
DX: D72.829 Elevated white blood cell count, unspecified (principal); R31.9 Hematuria, unspecified; N18.30 Chronic kidney disease, stage 3 unspecified; R53.1 Weakness
CPT/HCPCS: 36415; 71046; 80053; 80061; 81003; 84443; 85025; 87086; 88112

== ENCOUNTER 2023-07-15 15:19 | Outpatient (AMB) | payer MEDICARE, BC, OTHER, SELFPAY ==
--- NOTE | 2023-07-15 15:24 | A.OFFPC_ITS ---
Vital Signs 07/15/23 15:28 Weight 185 lb BP 132/88 Blood Pressure Location Lt brachial Position Sitting Pulse 58 Pulse Source Pulse Oximeter Pulse Oximetry (%) 94 Oxygen Delivery Method Room Air Intake Visit Reasons: pre-op cataract surgery Dr mendoza Allergies adhesive tape Allergy (Severe, Verified 07/15/23 15:30) Blister from adhesive bandages and rash from plastic tape phenytoin [From Dilantin] Allergy (Severe, Verified 07/15/23 15:30) Rash sulfamethoxazole [From BACTRIM] Allergy (Unknown, Verified 07/15/23 15:30) UNKNOWN trimethoprim [From BACTRIM] Allergy (Unknown, Verified 07/15/23 15:30) UNKNOWN Medication List - Last Reconciled 07/15/23 by BENOIT Sweeney [afo right foot wear daily] albuterol sulfate 90 mcg/actuation 1 puff inhalation Q6H PRN 30 days aspirin 81 mg PO DAILY blood sugar diagnostic As directed blood sugar diagnostic (Accu-Chek Guide test strips) As directed three times a day reetwtgwzl-lrkzwgzclcvnp-zqvh 50-325-40 mg 1 tab PO ONCE PRN 15 days calcium citrate 500 mg (2 x 250 mg calcium) PO BID cefuroxime axetil 250 mg PO BID 7 days cholecalciferol (vitamin D3) 50 mcg PO DAILY ciprofloxacin HCl 500 mg PO Q24H 3 days [Diabetic shoes & 3 pair inserts as directed] diclofenac sodium 1% (Arthritis Pain (diclofenac)) 4 grams topical QID dulaglutide (Trulicity) 3 mg (0.5 mL) subcut QWEEK 90 days duloxetine 20 mg PO DAILY incontinence pad, liner, disp daily use lancets As directed lancets (Accu-Chek Softclix Lancets) As directed three times a day loperamide (Imodium A-D) 2 mg PO Q6H PRN 30 days magnesium L-lactate ER 336 mg PO BID metoprolol succinate ER 25 mg See Protocol PO BID 90 days mirabegron ER (Myrbetriq) 50 mg PO DAILY nitrofurantoin macrocrystal 100 mg PO BID 7 days omeprazole 40 mg PO BID paroxetine HCl 40 mg PO QAM pravastatin 20 mg PO DAILY pregabalin 100 mg PO TID 30 days spironolactone 50 mg PO BID tramadol 50 mg PO BID PRN walker front with wheels only Tobacco use date assessed: 12/29/22 HPI pre-op cataract surgery Dr mendoza HPI Details Pt is here for a pre-op evaluation. She is scheduled to undergo cataract surgery of her right eye on 07/27 and left eye on 08/10. Leukocytosis noted on yesterday's labs. Pt is currently being treated for UTI. Awaiting chest XR, labs, and repeat urine studies. Pt is also supposed to have a colonoscopy on 07/21, will make pt's GI aware. [facility] Medical History AVN (avascular necrosis of bone) Type 2 diabetes mellitus with diabetic polyneuropathy Hiatal hernia IBS (irritable bowel syndrome) GERD (gastroesophageal reflux disease) On beta jody at home Restrictive lung disease Obesity (BMI 30-39.9) GOPAL on CPAP Anemia B12 deficiency Vitamin D deficiency Breast pain, left Chronic kidney disease, stage 3 Decreased pedal pulses Diabetes mellitus with complication Retinopathy Celiac disease Right rotator cuff tear Osteoarthritis Seizures Gout Neuropathy Gitelman disease Essential hypertension Age-related osteoporosis without current pathological fracture Type 2 diabetes mellitus with other diabetic kidney complication Proteinuria Dyslipidemia Type 2 diabetes mellitus with chronic kidney disease Adult BMI 30.0-30.9 kg/sq m Surgical History History of esophagogastroduodenoscopy (EGD) S/P cardiac catheterization History of carpal tunnel surgery of right wrist History of back surgery Hx of colonoscopy History of total left knee replacement History of left shoulder replacement History of revision of total replacement of right hip joint Hx of fracture of fibula Family History Father No problems noted. Mother Cancer Diabetes Daughter Substance use disorder Mental health disorder Social History Household Members: Spouse and Children Household Members Other:: 2 daughter and their children Housing: House Are you a primary rn homecare to a significant other at home: No Do you presently have visiting nurse or other home services: Yes (PT/OT) Alcohol intake: unknown Patient Tobacco Use Status: Former Tobacco user Quit Date: 1963 Tobacco use type: Cigarette Years Smoked: 1963 e-Cigarette/Vaping Use: Never Used Second Hand Smoke Exposure: Yes service: No Current occupational status: retired Cognitive needs: No Hearing needs: No Vision needs: Yes Questionnaire Thrive Questionnaire Date Thrive assessed: 05/08/21 Review of Systems Const Denies chills and Denies fever(s) Eyes Denies blurry vision ENT Denies vertigo, Denies dizziness and Denies sore throat Card Denies chest pain at rest, Denies chest pain with activity, Denies diaphoresis, Denies dyspnea and Reports dyspnea on exertion Resp Reports change in phlegm color, Denies cough, Denies dyspnea, Reports dyspnea on exertion and Denies wheezing GI Denies abdominal pain, Denies melena, Denies hematochezia, Denies constipation, Denies diarrhea and Denies loose stools Denies hematuria Musc Denies numbness and Denies tingling Skin/Breast Denies lesions Neuro Denies vertigo, Denies dizziness, Denies numbness and Denies tingling Psych Denies anxiety, Denies depression, Denies homicidal ideation, Denies suicidal ideation and Denies other (substance abuse) Aller/Immun Denies wheezing Physical exam (Primary Care) Vital Signs: Last Vital Signs Pulse 58 07/15/23 15:28 BP 132/88 07/15/23 15:28 Pulse Ox 94 07/15/23 15:28 Oxygen Delivery Method Room Air 07/15/23 15:28 Tobacco/Smoking Status: Tobacco use Status Tobacco use date assessed 12/29/22 07/15/23 15:24 Patient Tobacco Use Status Former Tobacco user 07/15/23 15:24 Tobacco use type Cigarette 07/15/23 15:24 e-Cigarette/Vaping Use Never Used 07/15/23 15:24 Thrive Assessment: Date of Thrive Assessment Date Thrive assessed 05/08/21 07/15/23 15:24 Const Other: in wheelchair General: cooperative Nutritional Appearance: well nourished Orientation/consciousness: patient oriented x3 HENMT Mouth: Normal oral and palatal mucosa present Neck Neck: Yes normal visual inspection and Yes no lymphadenopathy Resp Other: faint crackles to bases Effort & Inspection: normal respiratory effort Cardio Rate: regular rate Rhythm: regular rhythm Heart sounds: S1 normal heart sound present, S2 normal heart sound present and no murmurs Neuro General: patient oriented x3 and moves all extremities Psych Appearance: grossly normal Mental Status: mental status grossly normal Speech and movement: Normal speech and movement present Affect: normal affect Attitude: cooperative Thought process: Normal thought process present Thought content: Normal thought content present Insight: Good insight present (Psych) Judgement: Good judgement present (Psych) Assessment and Plan Assessment & Plan (1) Leukocytosis: Code(s): D72.829 - Elevated white blood cell count, unspecified (2) Pre-op evaluation: Code(s): Z01.818 - Encounter for other preprocedural examination Plan The patient agreed to the use of a medical director/head team physician for this encounter. Scribed for BENOIT Morin by Mercy Kwan medical director/head team physician, on 07/15/2023 at 16:05 EST. Orders: Orders XR chest 2V Today D72.829 - Elevated white blood cell count, unspecified Coding Level of Care Code Est Pt Prev Care >65y(79967) Diagnoses Leukocytosis D72.829 Pre-op evaluation Z01.818
[2023-07-15 15:28] VITALS: BP 132/88; PULSE 58; O2SAT 94
== END 2023-07-15 16:32 | disposition home or self-care (01) ==
PROVIDERS: PCP Nurse Practitioner Family; Visit Provider Nurse Practitioner Family
DX: D72.829 Elevated white blood cell count, unspecified (principal); Z01.818 Encounter for other preprocedural examination
CPT/HCPCS: 99213

== ENCOUNTER 2023-07-24 11:16 | Day surgery (SDC) | payer MEDICARE, BC, OTHER, SELFPAY ==
--- NOTE | 2023-07-23 09:45 | HO.ANESPROP2 ---
Documented by User: Namita Beth NP 07/23/23 09:53 HPI - Anesthesia Eval Consult details Narrative: 77yo F for Colonoscopy Follows [facility] cardiology. Hx of NSTEMI, Takatsubo. Last office visit 02/2023. Cleared for colonoscopy. [facility] Active Problems Active Problems: All Active Problems (Updated 07/22/23 @ 07:38 by Mitul aGrcia, [facility]) Abnormal urine cytology (Acute) Diabetes (Acute) Hematuria (Acute) Dizziness (Acute) Right calf pain (Acute) Leukocytosis (Acute) Pre-op evaluation (Acute) Abnormal nuclear cardiac imaging test (Acute) Hospital discharge follow-up (Acute) Preop cardiovascular exam (Acute) NSTEMI (non-ST elevated myocardial infarction) (Acute) UTI (urinary tract infection) (Acute) Cardiomyopathy (Acute) Upper extremity weakness (Acute) Weakness (Acute) Abscess (Acute) Encounter for annual wellness visit (AWV) in Medicare patient (Acute) Loss of hearing (Acute) Abdominal discomfort (Acute) Major depressive disorder, recurrent, moderate (Acute) Parotiditis (Acute) Weakness of both lower extremities (Acute) Restrictive lung disease (Acute) COPD (chronic obstructive pulmonary disease) (Acute) SOB (shortness of breath) (Acute) Stress (Acute) Obesity (BMI 30-39.9) (Acute) PAD (peripheral artery disease) (Acute) Breast pain, left (Acute) SOB (shortness of breath) (Acute) Acute sinusitis (Acute) Hyperparathyroidism, unspecified (Acute) S/P cardiac catheterization (Acute) Type 2 diabetes mellitus with diabetic polyneuropathy (Acute) Restrictive lung disease (Acute) Obesity (BMI 30-39.9) (Acute) GOPAL on CPAP (Acute) Anemia (Acute) B12 deficiency (Acute) Vitamin D deficiency (Acute) Type 2 diabetes mellitus with chronic kidney disease (Acute) Chronic kidney disease, stage 3 (Acute) Type 2 diabetes mellitus with other diabetic kidney complication (Acute) Proteinuria (Acute) Dyslipidemia (Acute) Essential hypertension (Acute) Adult BMI 30.0-30.9 kg/sq m (Acute) Decreased pedal pulses (Acute) Age-related osteoporosis without current pathological fracture (Acute) Past Medical History Medical History Cataract AVN (avascular necrosis of bone) Type 2 diabetes mellitus with diabetic polyneuropathy Hiatal hernia IBS (irritable bowel syndrome) GERD (gastroesophageal reflux disease) On beta jody at home Restrictive lung disease Obesity (BMI 30-39.9) GOPAL on CPAP Anemia B12 deficiency Vitamin D deficiency Breast pain, left Chronic kidney disease, stage 3 Decreased pedal pulses Diabetes mellitus with complication Retinopathy Celiac disease Right rotator cuff tear Osteoarthritis Seizures Gout Neuropathy Gitelman disease Essential hypertension Age-related osteoporosis without current pathological fracture Type 2 diabetes mellitus with other diabetic kidney complication Proteinuria Dyslipidemia Type 2 diabetes mellitus with chronic kidney disease Adult BMI 30.0-30.9 kg/sq m Family History Family History Father No problems noted. Mother Cancer Diabetes Daughter Substance use disorder Mental health disorder Family history of problems with anesthesia: No Surgical History Surgical History History of esophagogastroduodenoscopy (EGD) S/P cardiac catheterization History of carpal tunnel surgery of right wrist History of back surgery Hx of colonoscopy History of total left knee replacement History of left shoulder replacement History of revision of total replacement of right hip joint Hx of fracture of fibula History of Problems with Anesthesia: No Social History Social History Household Members: Spouse and Children Household Members Other:: 2 daughter and their children Housing: House Are you a primary care manager cna to a significant other at home: No Do you presently have visiting nurse or other home services: Yes (1 x week [employer]) Alcohol intake: unknown Patient Tobacco Use Status: Former Tobacco user Quit Date: 1963 Tobacco use type: Cigarette Years Smoked: 1963 e-Cigarette/Vaping Use: Never Used Second Hand Smoke Exposure: Yes Use of substances other than those prescribed or required for medical reasons: No Are you DNR?: No Advance Directives: No Advance Directives Information Provided: Yes Advance Directives Date on File: 08/26/22 service: No Current occupational status: retired Cognitive needs: No Hearing needs: No Vision needs: Yes Meds Allergies Allergy/AdvReac Type Severity Reaction Status Date / Time adhesive tape Allergy Severe Blister Verified 07/24/23 11:42 from adhesive bandages and rash from plastic tape phenytoin [From Dilantin] Allergy Severe Rash Verified 07/24/23 11:42 sulfamethoxazole Allergy Unknown UNKNOWN Verified 07/24/23 11:42 [From BACTRIM] trimethoprim [From BACTRIM] Allergy Unknown UNKNOWN Verified 07/24/23 11:42 Home Medications Medication Instructions Recorded Confirmed Last Taken Type blood sugar diagnostic #10 ea 05/17/20 07/15/23 Unknown History lancets 33 gauge #100 ea 05/17/20 07/15/23 Unknown History duloxetine 20 mg capsule,delayed 20 mg PO DAILY 05/08/21 07/23/23 07/02/21 07:10 History release magnesium L-lactate 84 mg 336 mg PO BID 08/19/22 07/23/23 07/24/23 09:45 History tablet,extended release mirabegron 50 mg tablet,extended 50 mg PO DAILY 11/18/22 07/23/23 Unknown History release 24 hr (Myrbetriq) tramadol 50 mg tablet 50 mg PO BID PRN Pain 11/18/22 07/23/23 Unknown History diclofenac sodium 1 % topical gel 4 g topical QID PRN Pain 07/23/23 07/23/23 Unknown History (Arthritis Pain (diclofenac)) Exam Pertinent Lab Results Pertinent Lab Results: Laboratory Tests 07/15/23 14:47 WBC 8.8 Hgb 10.1 L Hct 30.5 L Plt Count 443 H Sodium 134 L Potassium 4.0 Chloride 99 Carbon Dioxide 24 BUN 24 H Creatinine 2.04 H Narrative Narrative: EKG 06/2023 NSR 1st deg AV block RBBB Cardiac cath 01/2023 [facility] coronary arteries ECHO 07/2022 Conclusions: - Normal left ventricular size and systolic function. There is mildly increased left ventricular wall thickness. The visually estimated ejection fraction is between 55-60%. - The entire apex is akinetic. - Normal right ventricular cavity size and systolic function. - There is mild aortic valve stenosis. Assessment and Plan Assessment Anesthesia Assessment: Chart Reviewed Final Anesthetic Review Family History of Problems with Anesthesia: No History of Problems with Anesthesia: No Documented by User: Tammy Wagner MD 07/24/23 12:27 [facility] Past Medical History Medical History Cataract AVN (avascular necrosis of bone) Type 2 diabetes mellitus with diabetic polyneuropathy Hiatal hernia IBS (irritable bowel syndrome) GERD (gastroesophageal reflux disease) On beta jody at home Restrictive lung disease Obesity (BMI 30-39.9) GOPAL on CPAP Anemia B12 deficiency Vitamin D deficiency Breast pain, left Chronic kidney disease, stage 3 Decreased pedal pulses Diabetes mellitus with complication Retinopathy Celiac disease Right rotator cuff tear Osteoarthritis Seizures Gout Neuropathy Gitelman disease Essential hypertension Age-related osteoporosis without current pathological fracture Type 2 diabetes mellitus with other diabetic kidney complication Proteinuria Dyslipidemia Type 2 diabetes mellitus with chronic kidney disease Adult BMI 30.0-30.9 kg/sq m Family History Family History Father No problems noted. Mother Cancer Diabetes Daughter Substance use disorder Mental health disorder Surgical History Surgical History History of esophagogastroduodenoscopy (EGD) S/P cardiac catheterization History of carpal tunnel surgery of right wrist History of back surgery Hx of colonoscopy History of total left knee replacement History of left shoulder replacement History of revision of total replacement of right hip joint Hx of fracture of fibula Social History Social History Household Members: Spouse and Children Household Members Other:: 2 daughter and their children Housing: House Are you a primary care manager cna to a significant other at home: No Do you presently have visiting nurse or other home services: Yes (1 x week [employer]) Alcohol intake: unknown Patient Tobacco Use Status: Former Tobacco user Quit Date: 1963 Tobacco use type: Cigarette Years Smoked: 1963 e-Cigarette/Vaping Use: Never Used Second Hand Smoke Exposure: Yes Use of substances other than those prescribed or required for medical reasons: No Are you DNR?: No Advance Directives: No Advance Directives Information Provided: Yes Advance Directives Date on File: 08/26/22 service: No Current occupational status: retired Cognitive needs: No Hearing needs: No Vision needs: Yes Meds Allergies Allergy/AdvReac Type Severity Reaction Status Date / Time adhesive tape Allergy Severe Blister Verified 07/24/23 11:42 from adhesive bandages and rash from plastic tape phenytoin [From Dilantin] Allergy Severe Rash Verified 07/24/23 11:42 sulfamethoxazole Allergy Unknown UNKNOWN Verified 07/24/23 11:42 [From BACTRIM] trimethoprim [From BACTRIM] Allergy Unknown UNKNOWN Verified 07/24/23 11:42 Home Medications Medication Instructions Recorded Confirmed Last Taken Type blood sugar diagnostic #10 ea 05/17/20 07/15/23 Unknown History lancets 33 gauge #100 ea 05/17/20 07/15/23 Unknown History duloxetine 20 mg capsule,delayed 20 mg PO DAILY 05/08/21 07/23/23 07/02/21 07:10 History release magnesium L-lactate 84 mg 336 mg PO BID 08/19/22 07/23/23 07/24/23 09:45 History tablet,extended release mirabegron 50 mg tablet,extended 50 mg PO DAILY 11/18/22 07/23/23 Unknown History release 24 hr (Myrbetriq) tramadol 50 mg tablet 50 mg PO BID PRN Pain 11/18/22 07/23/23 Unknown History diclofenac sodium 1 % topical gel 4 g topical QID PRN Pain 07/23/23 07/23/23 Unknown History (Arthritis Pain (diclofenac)) Exam Airway Mallampati Class: III TM Dist: >3cm Neck ROM: Limited Loose/Missing/Broken Teeth: No Heart: RRR Lungs: CTA Assessment and Plan Assessment Anesthesia Assessment: Anesthesia Plan Discussed Final Anesthetic Review NPO: Yes ASA Class: III Final Preanesthetic Review: Meds/Allgs Chart Reviewed, Consent Obtained/Reviewed and Anes Risks/Benef Reviewed Patient Risk: Intermediate Procedure Risk: Low Anesthetic Plan Anesthetic Plan: MAC: Disposition: Standard PACU
[2023-07-24 11:33] VITALS: BMI 30.3
[2023-07-24 11:45] VITALS: BP 142/75; PULSE 76; RESP 17; TEMP 36.4; O2SAT 95
--- NOTE | 2023-07-24 12:46 | MHC.SHP ---
Pre-Procedural Eval Section A Date of Service: 07/24/23 Section B Chief Complaint: Diarrhea, unspecified Details of Present Illness: see H&P Relevant Family History (Specify if Yes): No Relevant Social History: None Present Medications: see Short Stay Collaborative assessment Medical History: No relevant PMH History of Previous Operations: No relevant previous surgery Allergies: Allergies Allergy/AdvReac Type Severity Reaction Status Date / Time adhesive tape Allergy Severe Blister Verified 07/24/23 11:42 from adhesive bandages and rash from plastic tape phenytoin [From Dilantin] Allergy Severe Rash Verified 07/24/23 11:42 sulfamethoxazole Allergy Unknown UNKNOWN Verified 07/24/23 11:42 [From BACTRIM] trimethoprim [From BACTRIM] Allergy Unknown UNKNOWN Verified 07/24/23 11:42 Review of Systems Sugical H&P ROS: Negative: Constitution, Cardiovascular, Respiratory, Neurological, Psychiatric, Hem-Onc, Allergic/Immunologic, Gastrointestinal, Genitourinary, Musculoskeletal, Integumentary, Endocrine and Eyes/Ears/Nose/Throat Exam Surgical H&P Exam: Normal: HEENT, Normal: Heart, Normal: Lungs, Normal: Extremities, Normal: Abdomen, Normal: Skin and Normal: Neurological Plan Diagnosis/Plan: Unchanged I have reviewed the history and physical and performed a pertinent physical examination on my patient. No changes have occurred unless specified. Time Spent With Patient Time: Total time managing care of this patient today ____ minutes.
[2023-07-24 13:25] VITALS: BP 102/43; PULSE 69; RESP 16; TEMP 36.3; O2SAT 100
[2023-07-24 13:40] VITALS: BP 111/34; PULSE 67; RESP 20; TEMP 36.6; O2SAT 97
--- NOTE | 2023-07-25 00:27 | OP_ITS ---
DATE OF SERVICE: 07/24/2023 SURGEON: Rc Kathleen MD INDICATIONS: Colon cancer screening and diarrhea. PREOPERATIVE DIAGNOSIS: POSTOPERATIVE DIAGNOSIS: PROCEDURE PERFORMED: Colonoscopy to the cecum with biopsy. ESTIMATED BLOOD LOSS: COMPLICATIONS: ANESTHESIA: Monitored anesthesia care. ASSISTANTS: SPECIMENS: DESCRIPTION OF PROCEDURE: A history and physical was performed. The risks and benefits of the procedure were explained to the patient and informed consent was obtained. The patient was placed in the left lateral decubitus position. A digital rectal exam was performed and showed decreased sphincter tone. The Olympus pediatric video colonoscope was introduced into the rectum and advanced to the cecum. The cecum was identified by transillumination, palpation, and identification of ileocecal valve. Examination was performed. The scope was removed. She tolerated the procedure well and was returned to the recovery area in stable condition. FINDINGS: The terminal ileum was not examined. The visualized colonic mucosa was normal. The quality of prep was good. The colon was quite tortuous. No polyps were identified. There was moderate sigmoid diverticulosis with scattered diverticulitis throughout the remainder of the colon. Retroflexed examination showed internal hemorrhoids. Random sigmoid biopsies were obtained because of the patient's chronic diarrheal symptoms. IMPRESSION: Normal colonoscopy. RECOMMENDATION: 1. Follow up the biopsy results. 2. No repeat screening colonoscopy based on age. MD BREN Ma/TRAVIS / [id number] MTDD
== END 2023-07-24 14:31 | disposition home or self-care (01) ==
PROVIDERS: PCP Nurse Practitioner Family; Visit Provider Internal Medicine Gastroenterology
PROC: 0DJD8ZZ Inspection of Lower Intestinal Tract, Via Natural or Artificial Opening Endoscopic (ICD-10-PCS; CPT 45378; principal; 2023-07-24 13:00)
DX: Z12.11 Encounter for screening for malignant neoplasm of colon (principal); K57.92 Diverticulitis of intestine, part unspecified, without perforation or abscess without bleeding; K57.30 Diverticulosis of large intestine without perforation or abscess without bleeding; K58.0 Irritable bowel syndrome with diarrhea; Z86.19 Personal history of other infectious and parasitic diseases; K55.20 Angiodysplasia of colon without hemorrhage; K21.9 Gastro-esophageal reflux disease without esophagitis; K44.9 Diaphragmatic hernia without obstruction or gangrene; E11.22 Type 2 diabetes mellitus with diabetic chronic kidney disease; I12.9 Hypertensive chronic kidney disease with stage 1 through stage 4 chronic kidney disease, or unspecified chronic kidney disease; N18.32 Chronic kidney disease, stage 3b; Z79.85 Long-term (current) use of injectable non-insulin antidiabetic drugs; E83.42 Hypomagnesemia; J44.9 Chronic obstructive pulmonary disease, unspecified; G40.909 Epilepsy, unspecified, not intractable, without status epilepticus; G47.33 Obstructive sleep apnea (adult) (pediatric); M81.0 Age-related osteoporosis without current pathological fracture; I25.2 Old myocardial infarction; E78.5 Hyperlipidemia, unspecified; Z79.899 Other long term (current) drug therapy; Z88.1 Allergy status to other antibiotic agents; Z88.8 Allergy status to other drugs, medicaments and biological substances; L23.1 Allergic contact dermatitis due to adhesives; Z98.890 Other specified postprocedural states; Z87.891 Personal history of nicotine dependence
CPT/HCPCS: 45380; 82947; 88305; J2704

== ENCOUNTER 2023-07-27 07:19 | Day surgery (SDC) | payer MEDICARE, BC, OTHER, SELFPAY ==
[2023-04-01 14:54] VITALS: BMI 32.9
[2023-04-01 16:46] VITALS: BMI 33.2
--- NOTE | 2023-04-03 08:20 | MHC.SHP ---
Pre-Procedural Eval Section A Date of Service: 04/03/23 The patient is an INPATIENT: No Changes since office visit: No Cold of Flu in the past 2 weeks, No New Medical Problems, No Changes in Medication and No Patient answered all questions The History & Physical has been completed within 30 days and I have reviewed it.: Yes Section B Chief Complaint: Age-related nuclear cataract, right eye Allergies: Allergies Allergy/AdvReac Type Severity Reaction Status Date / Time adhesive tape Allergy Severe Blister Verified 04/02/23 14:06 from adhesive bandages and rash from plastic tape phenytoin [From Dilantin] Allergy Severe Rash Verified 04/02/23 14:06 sulfamethoxazole Allergy Unknown UNKNOWN Verified 04/02/23 14:06 [From BACTRIM] trimethoprim [From BACTRIM] Allergy Unknown UNKNOWN Verified 04/02/23 14:06 Plan Diagnosis/Plan: Unchanged I have reviewed the history and physical and performed a pertinent physical examination on my patient. No changes have occurred unless specified. Time Spent With Patient Time: Total time managing care of this patient today ____ minutes.
[2023-07-23 15:30] VITALS: BMI 34.1
--- NOTE | 2023-07-24 07:59 | MHC.SHP ---
Pre-Procedural Eval Section A Date of Service: 07/24/23 The patient is an INPATIENT: No Changes since office visit: No Cold of Flu in the past 2 weeks, No New Medical Problems, No Changes in Medication and No Patient answered all questions The History & Physical has been completed within 30 days and I have reviewed it.: Yes Section B Chief Complaint: Age-related nuclear cataract, right eye Allergies: Allergies Allergy/AdvReac Type Severity Reaction Status Date / Time adhesive tape Allergy Severe Blister Verified 07/15/23 15:30 from adhesive bandages and rash from plastic tape phenytoin [From Dilantin] Allergy Severe Rash Verified 07/23/23 15:13 sulfamethoxazole Allergy Unknown UNKNOWN Verified 07/15/23 15:30 [From BACTRIM] trimethoprim [From BACTRIM] Allergy Unknown UNKNOWN Verified 07/15/23 15:30 Plan Diagnosis/Plan: Unchanged I have reviewed the history and physical and performed a pertinent physical examination on my patient. No changes have occurred unless specified. Time Spent With Patient Time: Total time managing care of this patient today ____ minutes.
--- NOTE | 2023-07-24 09:19 | HO.ANESPROP2 ---
HPI - Anesthesia Eval Consult details Narrative: 77yo F for Right Cataract Multifocal with IOL Insertion Medically cleared No previous cataract on record s/p colo 07/24/22 - cardiac cleared prior Follows [facility] [place] cardiology. Hx of NSTEMI, [place]. Last office visit 02/2023. [facility] Active Problems Active Problems: All Active Problems (Updated 07/23/23 @ 15:33 by Michelle Davies, RN) Abnormal urine cytology (Acute) Diabetes (Acute) Hematuria (Acute) Dizziness (Acute) Right calf pain (Acute) Leukocytosis (Acute) Pre-op evaluation (Acute) Abnormal nuclear cardiac imaging test (Acute) Hospital discharge follow-up (Acute) Preop cardiovascular exam (Acute) NSTEMI (non-ST elevated myocardial infarction) (Acute) UTI (urinary tract infection) (Acute) Cardiomyopathy (Acute) Upper extremity weakness (Acute) Weakness (Acute) Abscess (Acute) Encounter for annual wellness visit (AWV) in Medicare patient (Acute) Loss of hearing (Acute) Abdominal discomfort (Acute) Major depressive disorder, recurrent, moderate (Acute) Parotiditis (Acute) Weakness of both lower extremities (Acute) Restrictive lung disease (Acute) COPD (chronic obstructive pulmonary disease) (Acute) SOB (shortness of breath) (Acute) Stress (Acute) Obesity (BMI 30-39.9) (Acute) PAD (peripheral artery disease) (Acute) Breast pain, left (Acute) SOB (shortness of breath) (Acute) Acute sinusitis (Acute) Hyperparathyroidism, unspecified (Acute) S/P cardiac catheterization (Acute) Type 2 diabetes mellitus with diabetic polyneuropathy (Acute) Restrictive lung disease (Acute) Obesity (BMI 30-39.9) (Acute) GOPAL on CPAP (Acute) Anemia (Acute) B12 deficiency (Acute) Vitamin D deficiency (Acute) Type 2 diabetes mellitus with chronic kidney disease (Acute) Chronic kidney disease, stage 3 (Acute) Type 2 diabetes mellitus with other diabetic kidney complication (Acute) Proteinuria (Acute) Dyslipidemia (Acute) Essential hypertension (Acute) Adult BMI 30.0-30.9 kg/sq m (Acute) Decreased pedal pulses (Acute) Age-related osteoporosis without current pathological fracture (Acute) Past Medical History Medical History Cataract AVN (avascular necrosis of bone) Type 2 diabetes mellitus with diabetic polyneuropathy Hiatal hernia IBS (irritable bowel syndrome) GERD (gastroesophageal reflux disease) On beta jody at home Restrictive lung disease Obesity (BMI 30-39.9) GOPAL on CPAP Anemia B12 deficiency Vitamin D deficiency Breast pain, left Chronic kidney disease, stage 3 Decreased pedal pulses Diabetes mellitus with complication Retinopathy Celiac disease Right rotator cuff tear Osteoarthritis Seizures Gout Neuropathy Gitelman disease Essential hypertension Age-related osteoporosis without current pathological fracture Type 2 diabetes mellitus with other diabetic kidney complication Proteinuria Dyslipidemia Type 2 diabetes mellitus with chronic kidney disease Adult BMI 30.0-30.9 kg/sq m Family History Family History Father No problems noted. Mother Cancer Diabetes Daughter Substance use disorder Mental health disorder Family history of problems with anesthesia: No Surgical History Surgical History History of esophagogastroduodenoscopy (EGD) S/P cardiac catheterization History of carpal tunnel surgery of right wrist History of back surgery Hx of colonoscopy History of total left knee replacement History of left shoulder replacement History of revision of total replacement of right hip joint Hx of fracture of fibula History of Problems with Anesthesia: No Social History Social History Household Members: Spouse and Children Household Members Other:: 2 daughter and their children Housing: House Are you a primary health care consultant to a significant other at home: No Do you presently have visiting nurse or other home services: Yes (1 x week [employer]) Alcohol intake: unknown Patient Tobacco Use Status: Former Tobacco user Quit Date: 1963 Tobacco use type: Cigarette Years Smoked: 1963 e-Cigarette/Vaping Use: Never Used Second Hand Smoke Exposure: Yes Use of substances other than those prescribed or required for medical reasons: No Have you been hit, kicked, punched, or otherwise hurt by someone within the past year? If so, by whom?: No Are you DNR?: No Advance Directives: No Advance Directives Information Provided: Yes Advance Directives on File: No Advance Directives Date on File: 08/26/22 Recently lost weight without trying: No Nutrition Risks: Surgical patient >75years service: No Current occupational status: retired Cognitive needs: No Hearing needs: No Vision needs: Yes Meds Allergies Allergy/AdvReac Type Severity Reaction Status Date / Time adhesive tape Allergy Severe Blister Verified 07/24/23 11:42 from adhesive bandages and rash from plastic tape phenytoin [From Dilantin] Allergy Severe Rash Verified 07/24/23 11:42 sulfamethoxazole Allergy Unknown UNKNOWN Verified 07/24/23 11:42 [From BACTRIM] trimethoprim [From BACTRIM] Allergy Unknown UNKNOWN Verified 07/24/23 11:42 Home Medications Medication Instructions Recorded Confirmed Last Taken Type blood sugar diagnostic #10 ea 05/17/20 07/15/23 Unknown History lancets 33 gauge #100 ea 05/17/20 07/15/23 Unknown History duloxetine 20 mg capsule,delayed 20 mg PO DAILY 05/08/21 07/23/23 07/02/21 07:10 History release magnesium L-lactate 84 mg 336 mg PO BID 08/19/22 07/23/23 07/24/23 09:45 History tablet,extended release mirabegron 50 mg tablet,extended 50 mg PO DAILY 11/18/22 07/23/23 Unknown History release 24 hr (Myrbetriq) tramadol 50 mg tablet 50 mg PO BID PRN Pain 11/18/22 07/23/23 Unknown History diclofenac sodium 1 % topical gel 4 g topical QID PRN Pain 07/23/23 07/23/23 Unknown History (Arthritis Pain (diclofenac)) Exam Height,Weight and Vital Signs: Height 5 ft 1.75 in Weight 83.915 kg Pertinent Lab Results Pertinent Lab Results: Laboratory Tests 07/15/23 14:47 WBC 8.8 Hgb 10.1 L Hct 30.5 L Plt Count 443 H Sodium 134 L Potassium 4.0 Chloride 99 Carbon Dioxide 24 BUN 24 H Creatinine 2.04 H Narrative Narrative: EKG 06/2023 NSR 1st deg AV block RBBB Cardiac cath 01/2023 Nml coronary arteries ECHO 07/2022 Conclusions: - Normal left ventricular size and systolic function. There is mildly increased left ventricular wall thickness. The visually estimated ejection fraction is between 55-60%. - The entire apex is akinetic. - Normal right ventricular cavity size and systolic function. - There is mild aortic valve stenosis. Assessment and Plan Assessment Anesthesia Assessment: Chart Reviewed Final Anesthetic Review Family History of Problems with Anesthesia: No History of Problems with Anesthesia: No
--- NOTE | 2023-07-27 08:21 | HO.ANESPROP2 ---
HPI - Anesthesia Eval Consult details Narrative: right eye cataract PMFSH Active Problems Active Problems: All Active Problems (Updated 07/24/23 @ 11:40 by Nadine Chou RN) Abnormal urine cytology (Acute) Diabetes (Acute) Hematuria (Acute) Dizziness (Acute) Right calf pain (Acute) Leukocytosis (Acute) Pre-op evaluation (Acute) Abnormal nuclear cardiac imaging test (Acute) Hospital discharge follow-up (Acute) Preop cardiovascular exam (Acute) NSTEMI (non-ST elevated myocardial infarction) (Acute) UTI (urinary tract infection) (Acute) Cardiomyopathy (Acute) Upper extremity weakness (Acute) Weakness (Acute) Abscess (Acute) Encounter for annual wellness visit (AWV) in Medicare patient (Acute) Loss of hearing (Acute) Abdominal discomfort (Acute) Major depressive disorder, recurrent, moderate (Acute) Parotiditis (Acute) Weakness of both lower extremities (Acute) Restrictive lung disease (Acute) COPD (chronic obstructive pulmonary disease) (Acute) SOB (shortness of breath) (Acute) Stress (Acute) Obesity (BMI 30-39.9) (Acute) PAD (peripheral artery disease) (Acute) Breast pain, left (Acute) SOB (shortness of breath) (Acute) Acute sinusitis (Acute) Hyperparathyroidism, unspecified (Acute) S/P cardiac catheterization (Acute) Type 2 diabetes mellitus with diabetic polyneuropathy (Acute) Restrictive lung disease (Acute) Obesity (BMI 30-39.9) (Acute) GOPAL on CPAP (Acute) Anemia (Acute) B12 deficiency (Acute) Vitamin D deficiency (Acute) Type 2 diabetes mellitus with chronic kidney disease (Acute) Chronic kidney disease, stage 3 (Acute) Type 2 diabetes mellitus with other diabetic kidney complication (Acute) Proteinuria (Acute) Dyslipidemia (Acute) Essential hypertension (Acute) Adult BMI 30.0-30.9 kg/sq m (Acute) Decreased pedal pulses (Acute) Age-related osteoporosis without current pathological fracture (Acute) Past Medical History Medical History Cataract AVN (avascular necrosis of bone) Type 2 diabetes mellitus with diabetic polyneuropathy Hiatal hernia IBS (irritable bowel syndrome) GERD (gastroesophageal reflux disease) On beta jody at home Restrictive lung disease Obesity (BMI 30-39.9) GOPAL on CPAP Anemia B12 deficiency Vitamin D deficiency Breast pain, left Chronic kidney disease, stage 3 Decreased pedal pulses Diabetes mellitus with complication Retinopathy Celiac disease Right rotator cuff tear Osteoarthritis Seizures Gout Neuropathy Gitelman disease Essential hypertension Age-related osteoporosis without current pathological fracture Type 2 diabetes mellitus with other diabetic kidney complication Proteinuria Dyslipidemia Type 2 diabetes mellitus with chronic kidney disease Adult BMI 30.0-30.9 kg/sq m Family History Family History Father No problems noted. Mother Cancer Diabetes Daughter Substance use disorder Mental health disorder Family history of problems with anesthesia: No Surgical History Surgical History History of esophagogastroduodenoscopy (EGD) S/P cardiac catheterization History of carpal tunnel surgery of right wrist History of back surgery Hx of colonoscopy History of total left knee replacement History of left shoulder replacement History of revision of total replacement of right hip joint Hx of fracture of fibula History of Problems with Anesthesia: No Social History Social History Household Members: Spouse and Children Household Members Other:: 2 daughter and their children Housing: House Are you a primary healthcare insurance sales agent to a significant other at home: No Do you presently have visiting nurse or other home services: Yes (1 x week [employer]) Alcohol intake: unknown Patient Tobacco Use Status: Former Tobacco user Quit Date: 1963 Tobacco use type: Cigarette Years Smoked: 1963 e-Cigarette/Vaping Use: Never Used Second Hand Smoke Exposure: Yes Use of substances other than those prescribed or required for medical reasons: No Have you been hit, kicked, punched, or otherwise hurt by someone within the past year? If so, by whom?: No Are you DNR?: No Advance Directives: No Advance Directives Information Provided: Yes Advance Directives on File: No Advance Directives Date on File: 08/26/22 Recently lost weight without trying: No Nutrition Risks: Surgical patient >75years service: No Current occupational status: retired Cognitive needs: No Hearing needs: No Vision needs: Yes Meds Allergies Allergy/AdvReac Type Severity Reaction Status Date / Time adhesive tape Allergy Severe Blister Verified 07/24/23 11:42 from adhesive bandages and rash from plastic tape phenytoin [From Dilantin] Allergy Severe Rash Verified 07/24/23 11:42 sulfamethoxazole Allergy Unknown UNKNOWN Verified 07/24/23 11:42 [From BACTRIM] trimethoprim [From BACTRIM] Allergy Unknown UNKNOWN Verified 07/24/23 11:42 Active Medications: Current Medications Albuterol Sulfate (Albuterol Sulfate (0.083%) 2.5 Mg/3 Ml Vial.Neb) 2.5 mg INHALE ONCE PRN PRN Reason: Shortness of Breath/Wheezing Lactated Ringer's (Lr) 500 mls @ 50 mls/hr IV .Q10H TAYLOR Stop: 07/27/23 17:29 Povidone Iodine (Povidone Iodine 5 % Ophth Soln 30 Ml Bottle) 1 appl EYE-RIGHT PREOP PRN PRN Reason: Pre-Op Surgical Implant Prophy Home Medications Medication Instructions Recorded Confirmed Last Taken Type blood sugar diagnostic #10 ea 05/17/20 07/15/23 Unknown History lancets 33 gauge #100 ea 05/17/20 07/15/23 Unknown History duloxetine 20 mg capsule,delayed 20 mg PO DAILY 05/08/21 07/23/23 07/02/21 07:10 History release magnesium L-lactate 84 mg 336 mg PO BID 08/19/22 07/23/23 07/24/23 09:45 History tablet,extended release mirabegron 50 mg tablet,extended 50 mg PO DAILY 11/18/22 07/23/23 Unknown History release 24 hr (Myrbetriq) tramadol 50 mg tablet 50 mg PO BID PRN Pain 11/18/22 07/23/23 Unknown History diclofenac sodium 1 % topical gel 4 g topical QID PRN Pain 07/23/23 07/23/23 Unknown History (Arthritis Pain (diclofenac)) Exam Height,Weight and Vital Signs: Height 5 ft 1.75 in Weight 83.915 kg Airway Mallampati Class: III TM Dist: <=3cm Neck ROM: Limited Heart: rrr Lungs: cta Assessment and Plan Assessment Anesthesia Assessment: Anesthesia Plan Discussed and Chart Reviewed Final Anesthetic Review Family History of Problems with Anesthesia: No History of Problems with Anesthesia: No NPO: Yes ASA Class: III Final Preanesthetic Review: No Changes in Pt Med Stat, Meds/Allgs Chart Reviewed, Consent Obtained/Reviewed and Anes Risks/Benef Reviewed Patient Risk: Intermediate Procedure Risk: Low Anesthetic Plan Anesthetic Plan: MAC: Disposition: Standard PACU
[2023-07-27 08:41] VITALS: BP 140/58; PULSE 68; RESP 16; TEMP 36.3; O2SAT 96
--- NOTE | 2023-07-27 09:27 | HO.PNOPHT ---
Ophthalmology Procedure Procedure Date of Service: 07/27/23 Ophthalmology Viscoelastic: Jasmeet Adairt Dual Pack Pro Ophthalmology Lenses: TECCLIFF [id number] (22) Procedure Notes: PREOPERATIVE DIAGNOSIS: Decreased visual acuity right eye secondary to cataract POSTOPERATIVE DIAGNOSIS: Same PROCEDURE: Right cataract extraction with intraocular lens insertion SURGEON: Alan Gaston M.D. ANESTHESIA: Topical/MAC ESTIMATED BLOOD LOSS: None COMPLICATIONS: None After obtaining informed consent, the patient was brought to the operating room suite and placed in the supine position. After adequate sedation per anesthesia, topical drops of Tetracaine were given to the right eye. The eye was then prepped and draped in the usual sterile fashion. The operating room microscope was then positioned over the operative eye and a lid speculum placed. A paracentesis was created. Viscoelastic was then instilled into the anterior chamber. A three plane incision was then created temporally, utilizing a 2.85 mm keratome. Capsulotomy forceps were then utilized to create a circular tear capsulotomy. Hydrodissection and hydrodelineation were carried out until adequate mobilization of the nucleus occurred. Phacoemulsification was then utilized to remove the dense central nucleus followed by removal of the cortical material utilizing the automated aspiration irrigation unit. Viscoelastic was instilled into the posterior capsular bag followed by placement of a posterior chamber intraocular lens without difficulty. The residual Viscoelastic was then removed utilizing the automated IA machine. The wound was checked and found to be watertight. The patient tolerated the procedure well and the lid speculum was removed. Intracameral injection of Vigamox 0.1 mL followed by a subtenon injection of Kenalog-40 0.2 mL were administered. The patient will be seen in the a.m.
[2023-07-27 10:01] VITALS: BP 135/45; PULSE 65; RESP 16; TEMP 36.6; O2SAT 95
== END 2023-07-27 10:12 | disposition home or self-care (01) ==
PROVIDERS: PCP Nurse Practitioner Family; Visit Provider Ophthalmology
PROC: (CPT 66985; principal; 2023-07-27 09:10)
DX: H25.11 Age-related nuclear cataract, right eye (principal); H54.7 Unspecified visual loss; H40.033 Anatomical narrow angle, bilateral; H35.00 Unspecified background retinopathy; E78.00 Pure hypercholesterolemia, unspecified; E11.42 Type 2 diabetes mellitus with diabetic polyneuropathy; E11.22 Type 2 diabetes mellitus with diabetic chronic kidney disease; I12.9 Hypertensive chronic kidney disease with stage 1 through stage 4 chronic kidney disease, or unspecified chronic kidney disease; N18.30 Chronic kidney disease, stage 3 unspecified; G47.33 Obstructive sleep apnea (adult) (pediatric); J44.9 Chronic obstructive pulmonary disease, unspecified; J98.4 Other disorders of lung; F33.1 Major depressive disorder, recurrent, moderate; Q27.30 Arteriovenous malformation, site unspecified; M81.0 Age-related osteoporosis without current pathological fracture; Z79.85 Long-term (current) use of injectable non-insulin antidiabetic drugs; Z79.899 Other long term (current) drug therapy; Z99.89 Dependence on other enabling machines and devices; L23.1 Allergic contact dermatitis due to adhesives; Z88.1 Allergy status to other antibiotic agents; Z87.891 Personal history of nicotine dependence; Z98.890 Other specified postprocedural states
CPT/HCPCS: 66984; 82947; J2250; J3010; J3301; V2632

== ENCOUNTER 2023-08-10 07:20 | Day surgery (SDC) | payer MEDICARE, BC, OTHER, SELFPAY ==
[2023-07-23 15:39] VITALS: BMI 34.4
--- NOTE | 2023-08-06 11:54 | HO.ANESPROP2 ---
Documented by User: Namita Beth NP 08/06/23 11:55 HPI - Anesthesia Eval Consult details Narrative: 77yo F for Left Cataract Extraction IOL Insertion Medically cleared Right eye 07/27/23: Fent 50, Midaz 2 Anesthesia Pre-Procedure Meds Is the patient on any of the following meds?: Dulaglutide (Trulicity) PMFSH Active Problems Active Problems: All Active Problems (Updated 07/24/23 @ 11:40 by Nadine Chou RN) Abnormal urine cytology (Acute) Diabetes (Acute) Hematuria (Acute) Dizziness (Acute) Right calf pain (Acute) Leukocytosis (Acute) Pre-op evaluation (Acute) Abnormal nuclear cardiac imaging test (Acute) Hospital discharge follow-up (Acute) Preop cardiovascular exam (Acute) NSTEMI (non-ST elevated myocardial infarction) (Acute) UTI (urinary tract infection) (Acute) Cardiomyopathy (Acute) Upper extremity weakness (Acute) Weakness (Acute) Abscess (Acute) Encounter for annual wellness visit (AWV) in Medicare patient (Acute) Loss of hearing (Acute) Abdominal discomfort (Acute) Major depressive disorder, recurrent, moderate (Acute) Parotiditis (Acute) Weakness of both lower extremities (Acute) Restrictive lung disease (Acute) COPD (chronic obstructive pulmonary disease) (Acute) SOB (shortness of breath) (Acute) Stress (Acute) Obesity (BMI 30-39.9) (Acute) PAD (peripheral artery disease) (Acute) Breast pain, left (Acute) SOB (shortness of breath) (Acute) Acute sinusitis (Acute) Hyperparathyroidism, unspecified (Acute) S/P cardiac catheterization (Acute) Type 2 diabetes mellitus with diabetic polyneuropathy (Acute) Restrictive lung disease (Acute) Obesity (BMI 30-39.9) (Acute) GOPAL on CPAP (Acute) Anemia (Acute) B12 deficiency (Acute) Vitamin D deficiency (Acute) Type 2 diabetes mellitus with chronic kidney disease (Acute) Chronic kidney disease, stage 3 (Acute) Type 2 diabetes mellitus with other diabetic kidney complication (Acute) Proteinuria (Acute) Dyslipidemia (Acute) Essential hypertension (Acute) Adult BMI 30.0-30.9 kg/sq m (Acute) Decreased pedal pulses (Acute) Age-related osteoporosis without current pathological fracture (Acute) Past Medical History Medical History Cataract AVN (avascular necrosis of bone) Type 2 diabetes mellitus with diabetic polyneuropathy Hiatal hernia IBS (irritable bowel syndrome) GERD (gastroesophageal reflux disease) On beta jody at home Restrictive lung disease Obesity (BMI 30-39.9) GOPAL on CPAP Anemia B12 deficiency Vitamin D deficiency Breast pain, left Chronic kidney disease, stage 3 Decreased pedal pulses Diabetes mellitus with complication Retinopathy Celiac disease Right rotator cuff tear Osteoarthritis Seizures Gout Neuropathy Gitelman disease Essential hypertension Age-related osteoporosis without current pathological fracture Type 2 diabetes mellitus with other diabetic kidney complication Proteinuria Dyslipidemia Type 2 diabetes mellitus with chronic kidney disease Adult BMI 30.0-30.9 kg/sq m Family History Family History Father No problems noted. Mother Cancer Diabetes Daughter Substance use disorder Mental health disorder Family history of problems with anesthesia: No Surgical History Surgical History History of esophagogastroduodenoscopy (EGD) S/P cardiac catheterization History of carpal tunnel surgery of right wrist History of back surgery Hx of colonoscopy History of total left knee replacement History of left shoulder replacement History of revision of total replacement of right hip joint Hx of fracture of fibula History of Problems with Anesthesia: No Social History Social History Household Members: Spouse and Children Household Members Other:: 2 daughter and their children Housing: House Are you a primary child care assistant to a significant other at home: No Do you presently have visiting nurse or other home services: 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 If so, by whom?: No Are you DNR?: No Advance Directives: No Advance Directives Information Provided: Yes Advance Directives on File: Yes Advance Directives Date on File: 08/26/22 Nutrition Risks: Surgical patient >75years service: No Current occupational status: retired Cognitive needs: No Hearing needs: No Vision needs: Yes Meds Allergies Allergy/AdvReac Type Severity Reaction Status Date / Time adhesive tape Allergy Severe Blister Verified 07/27/23 08:47 from adhesive bandages and rash from plastic tape phenytoin [From Dilantin] Allergy Severe Rash Verified 07/27/23 08:47 sulfamethoxazole Allergy Unknown UNKNOWN Verified 07/27/23 08:47 [From BACTRIM] trimethoprim [From BACTRIM] Allergy Unknown UNKNOWN Verified 07/27/23 08:47 Home Medications Medication Instructions Recorded Confirmed Last Taken Type blood sugar diagnostic #10 ea 05/17/20 07/15/23 Unknown History lancets 33 gauge #100 ea 05/17/20 07/15/23 Unknown History duloxetine 20 mg capsule,delayed 20 mg PO DAILY 05/08/21 07/23/23 07/02/21 07:10 History release magnesium L-lactate 84 mg 336 mg PO BID 08/19/22 07/23/23 08/10/23 06:20 History tablet,extended release mirabegron 50 mg tablet,extended 50 mg PO DAILY 11/18/22 07/23/23 Unknown History release 24 hr (Myrbetriq) tramadol 50 mg tablet 50 mg PO BID PRN Pain 11/18/22 07/23/23 Unknown History diclofenac sodium 1 % topical gel 4 g topical QID PRN Pain 07/23/23 07/23/23 Unknown History (Arthritis Pain (diclofenac)) Exam Height,Weight and Vital Signs: Height 5 ft 1.5 in Weight 83.915 kg Assessment and Plan Assessment Anesthesia Assessment: Chart Reviewed Final Anesthetic Review Family History of Problems with Anesthesia: No History of Problems with Anesthesia: No Documented by User: Tatiana Viramontes MD 08/10/23 08:58 HPI - Anesthesia Eval Anesthesia Pre-Procedure Meds Is the patient on any of the following meds?: Dulaglutide (Trulicity) (Last dose 07/15/23) If Yes to any meds - educate patient: Pt education - increased risk of aspiration PMFSH Active Problems Active Problems: All Active Problems (Updated 08/10/23 @ 08:47 by Tatiana Viramontes MD) Abnormal urine cytology (Acute) Diabetes (Acute) Hematuria (Acute) Dizziness (Acute) Right calf pain (Acute) Leukocytosis (Acute) Pre-op evaluation (Acute) Abnormal nuclear cardiac imaging test (Acute) Hospital discharge follow-up (Acute) Preop cardiovascular exam (Acute) NSTEMI (non-ST elevated myocardial infarction) (Acute) UTI (urinary tract infection) (Acute) Cardiomyopathy (Acute) Upper extremity weakness (Acute) Weakness (Acute) Abscess (Acute) Encounter for annual wellness visit (AWV) in Medicare patient (Acute) Loss of hearing (Acute) Abdominal discomfort (Acute) Major depressive disorder, recurrent, moderate (Acute) Parotiditis (Acute) Weakness of both lower extremities (Acute) Restrictive lung disease (Acute) COPD (chronic obstructive pulmonary disease) (Acute) SOB (shortness of breath) (Acute) Stress (Acute) Obesity (BMI 30-39.9) (Acute) PAD (peripheral artery disease) (Acute) Breast pain, left (Acute) SOB (shortness of breath) (Acute) Acute sinusitis (Acute) Hyperparathyroidism, unspecified (Acute) S/P cardiac catheterization (Acute) Type 2 diabetes mellitus with diabetic polyneuropathy (Acute) Restrictive lung disease (Acute) Obesity (BMI 30-39.9) (Acute) GOPAL on CPAP (Acute) Anemia (Acute) B12 deficiency (Acute) Vitamin D deficiency (Acute) Type 2 diabetes mellitus with chronic kidney disease (Acute) Chronic kidney disease, stage 3 (Acute) Type 2 diabetes mellitus with other diabetic kidney complication (Acute) Proteinuria (Acute) Dyslipidemia (Acute) Essential hypertension (Acute) Adult BMI 30.0-30.9 kg/sq m (Acute) Decreased pedal pulses (Acute) Age-related osteoporosis without current pathological fracture (Acute) Past Medical History Medical History Cataract AVN (avascular necrosis of bone) Type 2 diabetes mellitus with diabetic polyneuropathy Hiatal hernia IBS (irritable bowel syndrome) GERD (gastroesophageal reflux disease) On beta jody at home Restrictive lung disease Obesity (BMI 30-39.9) GOPAL on CPAP Anemia B12 deficiency Vitamin D deficiency Breast pain, left Chronic kidney disease, stage 3 Decreased pedal pulses Diabetes mellitus with complication Retinopathy Celiac disease Right rotator cuff tear Osteoarthritis Seizures Gout Neuropathy Gitelman disease Essential hypertension Age-related osteoporosis without current pathological fracture Type 2 diabetes mellitus with other diabetic kidney complication Proteinuria Dyslipidemia Type 2 diabetes mellitus with chronic kidney disease Adult BMI 30.0-30.9 kg/sq m Family History Family History Father No problems noted. Mother Cancer Diabetes Daughter Substance use disorder Mental health disorder Family history of problems with anesthesia: No Surgical History Surgical History History of esophagogastroduodenoscopy (EGD) S/P cardiac catheterization History of carpal tunnel surgery of right wrist History of back surgery Hx of colonoscopy History of total left knee replacement History of left shoulder replacement History of revision of total replacement of right hip joint Hx of fracture of fibula History of Problems with Anesthesia: No Social History Social History Household Members: Spouse and Children Household Members Other:: 2 daughter and their children Housing: House Are you a primary child care assistant to a significant other at home: No Do you presently have visiting nurse or other home services: 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 If so, by whom?: No Are you DNR?: No Advance Directives: No Advance Directives Information Provided: Yes Advance Directives on File: Yes Advance Directives Date on File: 08/26/22 Nutrition Risks: Surgical patient >75years service: No Current occupational status: retired Cognitive needs: No Hearing needs: No Vision needs: Yes Meds Allergies Allergy/AdvReac Type Severity Reaction Status Date / Time adhesive tape Allergy Severe Blister Verified 07/27/23 08:47 from adhesive bandages and rash from plastic tape phenytoin [From Dilantin] Allergy Severe Rash Verified 07/27/23 08:47 sulfamethoxazole Allergy Unknown UNKNOWN Verified 07/27/23 08:47 [From BACTRIM] trimethoprim [From BACTRIM] Allergy Unknown UNKNOWN Verified 07/27/23 08:47 Home Medications Medication Instructions Recorded Confirmed Last Taken Type blood sugar diagnostic #10 ea 05/17/20 07/15/23 Unknown History lancets 33 gauge #100 ea 05/17/20 07/15/23 Unknown History duloxetine 20 mg capsule,delayed 20 mg PO DAILY 05/08/21 07/23/23 07/02/21 07:10 History release magnesium L-lactate 84 mg 336 mg PO BID 08/19/22 07/23/23 08/10/23 06:20 History tablet,extended release mirabegron 50 mg tablet,extended 50 mg PO DAILY 11/18/22 07/23/23 Unknown History release 24 hr (Myrbetriq) tramadol 50 mg tablet 50 mg PO BID PRN Pain 11/18/22 07/23/23 Unknown History diclofenac sodium 1 % topical gel 4 g topical QID PRN Pain 07/23/23 07/23/23 Unknown History (Arthritis Pain (diclofenac)) Exam Height,Weight and Vital Signs: Height 5 ft 1.5 in Weight 83.915 kg Vital Signs Temp Pulse Resp BP Pulse Ox O2 Del Method 08/10/23 08:27 98.1 F 59 16 128/52 L 96 Room Air Pertinent Lab Results Pertinent Lab Results: Lab Results 08/10/23 Range/Units 08:44 POC Glucose 95 (60-115) mg/dL Airway Mallampati Class: II TM Dist: >3cm Neck ROM: Full Loose/Missing/Broken Teeth: No (Denies broken, loose, missing teeth) Heart: RRR Lungs: CTAB Assessment and Plan Assessment Anesthesia Assessment: Anesthesia Plan Discussed Final Anesthetic Review Family History of Problems with Anesthesia: No History of Problems with Anesthesia: No NPO: Yes ASA Class: III Final Preanesthetic Review: No Changes in Pt Med Stat, Meds/Allgs Chart Reviewed, Consent Obtained/Reviewed and Anes Risks/Benef Reviewed Patient Risk: Intermediate Procedure Risk: Low Assessment/Block/Sedation in SS: Assess/Block/Sedation-SS Anesthetic Plan Anesthetic Plan: MAC: Disposition: Standard PACU
--- NOTE | 2023-08-07 08:06 | MHC.SHP ---
Pre-Procedural Eval Section A Date of Service: 08/07/23 The patient is an INPATIENT: No Changes since office visit: No Cold of Flu in the past 2 weeks, No New Medical Problems, No Changes in Medication and No Patient answered all questions The History & Physical has been completed within 30 days and I have reviewed it.: Yes Section B Chief Complaint: Age-related nuclear cataract, left eye Allergies: Allergies Allergy/AdvReac Type Severity Reaction Status Date / Time adhesive tape Allergy Severe Blister Verified 07/27/23 08:47 from adhesive bandages and rash from plastic tape phenytoin [From Dilantin] Allergy Severe Rash Verified 07/27/23 08:47 sulfamethoxazole Allergy Unknown UNKNOWN Verified 07/27/23 08:47 [From BACTRIM] trimethoprim [From BACTRIM] Allergy Unknown UNKNOWN Verified 07/27/23 08:47 Plan Diagnosis/Plan: Unchanged I have reviewed the history and physical and performed a pertinent physical examination on my patient. No changes have occurred unless specified. Time Spent With Patient Time: Total time managing care of this patient today ____ minutes.
--- OUTSIDE RECORDS SUMMARY | 2023-08-10 07:25 | XMS_ITS | Patient Health Record ---
Author Name Unknown Organization [facility] Address [address] [place] [address] Care Team Providers Care Electrical Sign Servicer Name Role Phone LYNN NICOLE Primary Care Provider Rc Galindo Jr ALLERGIES Allergen (clinical drug ingredient) Drug/Non Drug Allergy documented on EMR Reaction Allergy Type Onset Date Status phenytoin Dilantin Unknown Drug Allergy Active sulfamethoxazole / trimethoprim Bactrim Unknown Drug Allergy Active plastic tape (uncoded) Unknown Allergy Active RESULTS Component Value Reference Range Notes Glucose, Whole Blood Reviewed date:07/24/2023 02:30:59 PM Interpretation: Performing Lab:[facility], [address] [place] [id number] Notes/Report: Glucose, Whole Blood 123 60-115 mg/dL METER # : [id number] Pathology Reviewed date:08/03/2023 02:27:57 PM Interpretation: Performing Lab:[facility], [address] [place] [id number] Notes/Report: REASON FOR REFERRAL No Information MEDICATIONS Medication SIG (Take, Route, Frequency, Duration) Notes Start Date End Date Status Myrbetriq Active Pravastatin Sodium A ctive Diphenoxylate-Atropine 2.5-0.025 MG TAKE 1 TABLET BY MOUTH EVERY 6 HOURS NEEDED for 30 days 07/21/2023 Active Spironolactone 50 MG 1 tablet Orally Twi ce a day Active Vitamin D3 Active PARoxetine HCl 40 MG 1 tablet in the mor maria luisa Orally Once a day Active Calcium Citrate Acti ve Magnesium Oxide 400 MG 4-5 tablet Orally daily Active traMADol HCl Active Lyrica 50 MG 1 capsule Orally Thr ee times a day Active DULoxetine HCl 20 MG Oral for 16 Active Omeprazole 20 MG 1 capsule Orally Onc e a day Active MiraLax (colon prep) 17 GM/SCOOP mixed with Gatorade or Crystal Light Orally begin at 5:00 p.m. the day before the procedure for 1 day 10/29/2022 Active Pregabalin 100 MG Oral for 90 Active Metoprolol Succinate ER 25 MG 1 tablet Orally Once a day Active Colyte with Flavor Packs 240 GM As directed Orally Over the specified time. for 1 day(s) 05/13/2023 Active Trulicity 1.5 MG/0.5ML as directed Subcu taneous once a week Active Wsvsjpjcvs-CSWF-Uvubhcly Active IMMUNIZATIONS Vaccine Route Administration Date Status Comme nts Flu vaccine no Preserv 3 and > Unknown 04/04/2014 Admin istered Flu vaccine no Preserv 3 and > Unknown 06/05/2015 Admin istered Influenza Unknown 03/30/2018 Administered Influenza Unknown 04/19/2019 Administered Influenza Unknown 04/25/2020 Administered Influenza Unknown 03/20/2021 Administered Influenza Unknown 04/01/2022 Administered SOCIAL HISTORY Sex Assigned At : Social History Observation Description Sex Assigned At Unknown PROBLEMS Problem Type ICD Code Onset Dates Problem Status W/U Status Risk SNOMED Code Notes Problem Gastro-esophageal reflux disease without esophagitis (K21.9) Active confirmed 954485849 Problem Hypertension (I10) Active confirmed 383 77821 Problem Gastroesophageal reflux disease (K21.9) Active confirmed Gastroesophagea l reflux disease (848498958) Problem Abnormal celiac antibody panel (R89.4) Active confirmed 799960699 Problem Diarrhea, unspecified type (R19.7) Active confirmed 35677944 Problem Irritable bowel syndrome with both constipation and diarrhea (K58.2) Active confirmed 51851723 Problem Colon cancer screening declined (Z53.20) Active confirmed 04121824855523 Problem 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 462789181 Problem Gastroesophageal reflux disease, unspecified whether esophagitis present (K21.9) Active confirmed 565211579 Encounters Encounter Location Date Provider Diagnosis [facility] Outpatient [address] [place] [id number] 11/19/2022 Rc Kathleen [facility] Outpatient [address] [place] [id number] 07/21/2023 Rc Kathleen Jr [facility] Outpatient [address] [facility] [place] [phone] 07/24/2023 Rc Kathleen Jr Encounter for screening colonoscopy Z12.11 and Diarrhea R19.7 [facility] [address] [place] [address] 10/09/2022 Rc Kathleen Jr [facility] [address] [place] [address] 10/29/2022 Rc Kathleen Jr Diarrhea, unspecified type R19.7 and Gastroesophageal reflux disease, unspecified whether esophagitis present K21.9 [facility] [address] [place] [address] 10/09/2022 Rc Kathleen Jr [facility] [address] [place] [address] 11/10/2022 Rc Kathleen Jr [facility] [address] [place] [address] 11/17/2022 Rc Kathleen Jr [facility] [address] [place] [address] 11/18/2022 Rc Kathleen Jr [facility] [address] [place] [address] 11/18/2022 Rc Kathleen Jr [facility] [address] [place] [address] 12/23/2022 Rc Kathleen Jr [facility] [address] [place] [address] 12/24/2022 Rc Kathleen Jr [facility] [address] [place] [address] 12/24/2022 Rc Kathleen Jr [facility] [address] [place] [address] 12/24/2022 Rc Kathleen Jr [facility] [address] [place] [address] 02/12/2023 Rc Kathleen Jr [facility] [address] [place] [address] 04/20/2023 Rc Kathleen Jr [facility] [address] [place] [address] 05/13/2023 Rc Kathleen Jr [facility] [address] [place] [address] 07/15/2023 Rc Kathleen Jr [facility] [address] [place] [address] 07/21/2023 Rc Kathleen Jr [facility] [address] [place] [address] 07/21/2023 Rc Kathleen Jr [facility] [address] [place] [address] 08/03/2023 Rc Kathleen Jr ASSESSMENTS Encounter Date Diagnosis Assessment Notes Treatment Notes Treatment Clinical Notes 10/29/2022 Diarrhea, unspecifie d type (ICD-10 - R19.7) 07/24/2023 Encounter for screen ing colonoscopy (ICD-10 - Z12.11) 07/24/2023 Diarrhea (ICD-10 - R19.7) 10/29/2022 Gastroesophageal ref lux disease, unspecified whether esophagitis present (ICD-10 - K21.9) PLAN OF TREATMENT Pending Test Test Name Order Date STOOL WBC 07/23/2020 OVA & PARASITES (O&P) 04/10/2022 OVA & PARASITES (O&P) 07/23/2020 CT PELVIS NO CONTRAST 04/20/2013 STOOL WBC 04/10/2022 C DIFFICILE RFLX PCR 04/10/2022 C DIFFICILE RFLX PCR 07/23/2020 Stool Culture 07/23/2020 GI PANEL 04/10/2022 Future Test Test Name Order Date UPPER GI ENDOSCOPY 06/20/2021 COLONOSCOPY 10/29/2022 Next Appt Details Provider Name:Rc coronado Jr, 08/11/2024 01:15:00 PM, [address], [address], [place], [address], Insurance Providers Payer Name Payer Address Payer Phone Subscriber Number Group Number Insured Name Patient Relationship to Insured Coverage Start Date Coverage End Date MEDICARE OF [place] [address] [place] [address] [phone] [id number] PRECHTL, RANJAN Self - patient is the insured [facility] [address] [place], [place] [id number] PRECHTL, RANJAN Self - patient is the insured [employer] [address] [place] [address] [phone] [id number] PRECHTL, RANJAN Self - patient is the insured MEDICAL (GENERAL) HISTORY Medical History History ICD Code Gastroesophageal reflux dise ase, EGD 07/02/21, hiatal hernia, biopsies negative for celiac, H. pylori, and Montgomery's. Colonoscopy 08/07/10, cecal A VMs, diverticulosis, further screening optional based on age hiatal hernia seizure disorder hypomagnesemia (? Gitelman's syndrome) History of C. difficile infection Urosepsis Hypertension Diabetes mellitus Chronic kidney disease stage IIIB Osteoporosis Irritable bowel syndrome Surgical History Surgery Date(Month/Year) right hip replacement X4 shoulder surgery left knee replacement 03/17/2013 carpal tunnel release-both hands finger surgery femur right side Spinal surgery Hospitalization History Reason Date(Month/Year) uti and pneumonia with sepsis 08/18/22
[2023-08-10 08:27] VITALS: BP 128/52; PULSE 59; RESP 16; TEMP 36.7; O2SAT 96
[2023-08-10] MEDS: Cyclopentolate 1 % Ophth Sol 2 ML DRPBTL 1 DROP EYE-LEFT ×3 (08:43→08:56)
[2023-08-10] MEDS: Tropicamide 1 % Ophth Sol 3 ML BTL 1 DROP EYE-LEFT ×3 (08:45→08:57)
[2023-08-10] MEDS: Ketorolac Tromethamine 0.5% Op 5 ML DROPS 1 DROP EYE-LEFT ×3 (08:47→08:58)
[2023-08-10] MEDS: Lactated Ringers 500 ML 50 ML IV (08:49)
[2023-08-10] MEDS: Phenylephrine HCL 2.5% Oph SoL 2 ML BOTTLE 1 DROP EYE-LEFT ×3 (08:49→08:59)
[2023-08-10 08:51] LABS: Glucose, Whole Blood 95 mg/dL (60-115)
--- NOTE | 2023-08-10 09:49 | MHC.SHP ---
Pre-Procedural Eval Section A Date of Service: 08/10/23 The patient is an INPATIENT: No Changes since office visit: No Cold of Flu in the past 2 weeks, No New Medical Problems, No Changes in Medication and No Patient answered all questions The History & Physical has been completed within 30 days and I have reviewed it.: Yes Section B Chief Complaint: Age-related nuclear cataract, left eye Allergies: Allergies Allergy/AdvReac Type Severity Reaction Status Date / Time adhesive tape Allergy Severe Blister Verified 07/27/23 08:47 from adhesive bandages and rash from plastic tape phenytoin [From Dilantin] Allergy Severe Rash Verified 07/27/23 08:47 sulfamethoxazole Allergy Unknown UNKNOWN Verified 07/27/23 08:47 [From BACTRIM] trimethoprim [From BACTRIM] Allergy Unknown UNKNOWN Verified 07/27/23 08:47 Plan Diagnosis/Plan: Unchanged I have reviewed the history and physical and performed a pertinent physical examination on my patient. No changes have occurred unless specified. Time Spent With Patient Time: Total time managing care of this patient today ____ minutes.
--- NOTE | 2023-08-10 09:49 | HO.PNOPHT ---
Ophthalmology Procedure Procedure Date of Service: 08/10/23 Ophthalmology Viscoelastic: Healnika Adairt Dual Pack Pro Ophthalmology Lenses: TECCLIFF [id number] (22) Procedure Notes: PREOPERATIVE DIAGNOSIS: Decreased visual acuity left eye secondary to cataract POSTOPERATIVE DIAGNOSIS: Same PROCEDURE: Left cataract extraction with intraocular lens insertion SURGEON: Alan Gaston M.D. ANESTHESIA: Topical/MAC ESTIMATED BLOOD LOSS: None COMPLICATIONS: None After obtaining informed consent, the patient was brought to the operation room suite and placed in the supine position. After adequate sedation per anesthesia, topical drops of Tetracaine were given to the left eye. The eye was then prepped and draped in the usual sterile fashion. The operating room microscope was then positioned over the operative eye and a lid speculum placed. A paracentesis was created. Viscoelastic was then instilled into the anterior chamber. A three plane incision was then created temporally, utilizing a 2.85 mm keratome. Capsulotomy forceps were then utilized to create a circular tear capsulotomy. Hydrodissection and hydrodelineation were carried out until adequate mobilization of the nucleus occurred. Phacoemulsification was then utilized to remove the dense central nucleus followed by removal of the cortical material utilizing the automated aspiration irrigation unit. Viscoat elastic was instilled into the posterior capsular bag followed by placement of a posterior chamber intraocular lens without difficulty. The residual Viscoat elastic was then removed utilizing the automated IA machine. The wound was check and found to be watertight. The patient tolerated the procedure well and the lid speculum was removed. Intracameral injection of Vigamox 0.1 mL followed by a subtenon injection of Kenalog-40 0.2 mL were administered. The patient will be seen in the a.m.
[2023-08-10 10:17] VITALS: BP 110/43; PULSE 60; RESP 16; TEMP 36.6; O2SAT 96
[2023-08-10 10:19] VITALS: BP 111/36; PULSE 59; RESP 16; TEMP 36.4; O2SAT 97
== END 2023-08-10 10:40 | disposition home or self-care (01) ==
PROVIDERS: PCP Nurse Practitioner Family; Visit Provider Ophthalmology
PROC: (CPT 66985; principal; 2023-08-10 09:10)
DX: H25.12 Age-related nuclear cataract, left eye (principal); H54.7 Unspecified visual loss; H40.033 Anatomical narrow angle, bilateral; H35.00 Unspecified background retinopathy; I10 Essential (primary) hypertension; E78.00 Pure hypercholesterolemia, unspecified; E11.9 Type 2 diabetes mellitus without complications; G47.33 Obstructive sleep apnea (adult) (pediatric); L23.1 Allergic contact dermatitis due to adhesives; Z79.85 Long-term (current) use of injectable non-insulin antidiabetic drugs; Z79.899 Other long term (current) drug therapy; Z88.1 Allergy status to other antibiotic agents; Z87.891 Personal history of nicotine dependence
CPT/HCPCS: 66984; 82947; J2250; J3010; J3301; V2632

== ENCOUNTER 2023-08-14 12:49 | Outpatient (REF) | payer MEDICARE, BC, OTHER, MEDICAID, SELFPAY ==
--- NOTE | ~2023-08-14 | XR_ITS ---
EXAMINATION: XR CHEST CLINICAL INFORMATION: Shortness of breath. COMPARISON: 07/16/2023 TECHNIQUE: 2 views of the chest were obtained. FINDINGS: The lung volumes are low. There is no gross pneumothorax. Redemonstration of severe degenerative changes right shoulder. Incompletely imaged right shoulder prosthesis redemonstrated. Multilevel degenerative changes in the thoracic spine. Loss of height of several adjacent lower thoracic vertebral bodies is redemonstrated. Large retrocardiac air-fluid level redemonstrated, possibly corresponding to previously characterized as a hiatal hernia. Redemonstration of mild left basilar opacities likely related to atelectasis in the left pleural effusion, although pneumonia could also contribute to this appearance. XR/XR chest 2V IMPRESSION: Large retrocardiac air-fluid level redemonstrated, possibly corresponding to previously characterized as a hiatal hernia. Redemonstration of mild left basilar opacities likely related to atelectasis in the left pleural effusion, although pneumonia could also contribute to this appearance. Correlation with clinical exam recommended to determine further management. CT scan should be considered for further evaluation of previously reported hiatal hernia.
== END 2023-08-14 12:50 | disposition home or self-care (01) ==
LOC: HO.XRAY 12:49
PROVIDERS: PCP Nurse Practitioner Family; Visit Provider Nurse Practitioner Family
DX: R06.02 Shortness of breath (principal)
CPT/HCPCS: 71046

== ENCOUNTER 2023-08-18 13:15 | Outpatient (AMB) | payer MEDICARE, BC, OTHER, SELFPAY ==
--- NOTE | 2023-08-18 13:21 | A.OFFVIS_ITS ---
Intake Vital Signs 08/18/23 13:32 Height 5 ft 2 in Weight 179 lb BMI 32.7 BP 130/86 Blood Pressure Location Lt brachial Position Sitting Pulse 64 Pulse Source Pulse Oximeter Pulse Oximetry (%) 96 Oxygen Delivery Method Room Air Intake Visit Reasons: SWV G0439 Allergies adhesive tape Allergy (Severe, Verified 08/18/23 13:42) Blister from adhesive bandages and rash from plastic tape phenytoin [From Dilantin] Allergy (Severe, Verified 08/18/23 13:42) Rash sulfamethoxazole [From BACTRIM] Allergy (Unknown, Verified 08/18/23 13:42) UNKNOWN trimethoprim [From BACTRIM] Allergy (Unknown, Verified 08/18/23 13:42) UNKNOWN HPI SWV G0439 HPI Details Pt is here for an SWV. Denies fever, chills, and dizziness. [place] of care in scan pile. PPP will be scanned in chart and copy will be given to pt. [facility] Medical History Cataract AVN (avascular necrosis of bone) Type 2 diabetes mellitus with diabetic polyneuropathy Hiatal hernia IBS (irritable bowel syndrome) GERD (gastroesophageal reflux disease) On beta jody at home Restrictive lung disease Obesity (BMI 30-39.9) GOPAL on CPAP Anemia B12 deficiency Vitamin D deficiency Breast pain, left Chronic kidney disease, stage 3 Decreased pedal pulses Diabetes mellitus with complication Retinopathy Celiac disease Right rotator cuff tear Osteoarthritis Seizures Gout Neuropathy Gitelman disease Essential hypertension Age-related osteoporosis without current pathological fracture Type 2 diabetes mellitus with other diabetic kidney complication Proteinuria Dyslipidemia Type 2 diabetes mellitus with chronic kidney disease Adult BMI 30.0-30.9 kg/sq m Surgical History History of esophagogastroduodenoscopy (EGD) S/P cardiac catheterization History of carpal tunnel surgery of right wrist History of back surgery Hx of colonoscopy History of total left knee replacement History of left shoulder replacement History of revision of total replacement of right hip joint Hx of fracture of fibula Family History Father No problems noted. Mother Cancer Diabetes Daughter Substance use disorder Mental health disorder Social History Household Members: Spouse and Children Household Members Other:: 2 daughter and their children Housing: House Are you a primary geriatric personal care aide to a significant other at home: No Do you presently have visiting nurse or other home services: Yes (1 x week [employer]) Alcohol intake: unknown Patient Tobacco Use Status: Former Tobacco user Quit Date: 1963 Tobacco use type: Cigarette Years Smoked: 1963 e-Cigarette/Vaping Use: Never Used Second Hand Smoke Exposure: Yes Advance Directives Date on File: 08/26/22 service: No Current occupational status: retired Cognitive needs: No Hearing needs: No Vision needs: Yes Questionnaire Medicare Wellness Checkup [age] What gender do you identify with?: female During the past 4 weeks, how much have you been bothered by emotional problems such as feeling anxious, depressed, irritable, sad or downhearted, and blue?: quite a bit During the past 4 weeks, has your physical & emotional health limited your social activities with family, friends, neighbors, or groups?: not at all During the past 4 weeks, how much bodily pain have you generally had?: moderate pain During the past 4 weeks, was someone available to help you if you needed & wanted help?: yes, as much as I wanted During the past 4 weeks, what was the hardest physical activity you could do for at least 2 minutes?: moderate Can you get to places out of walking distance without help? (For eg., can you travel alone on buses, taxis or drive your car?): No Can you go shopping for groceries or clothes without someone's help?: No Can you prepare your own meals?: Yes Can you do your housework without help?: No Because of any health problems, do you need the help of another person with your personal care needs such as eating, bathing, dressing or getting around the house?: Yes Can you handle your own money without help?: Yes During the past 4 weeks, how would you rate your health in general?: fair During the past 4 weeks how have things been going for you?: good & bad parts about equal Are you having difficulties driving your car?: not applicable, I don't use a car Do you always fasten your seat belt when you are in a car?: yes, usually During past 4 weeks, have you been bothered by the following: never: Falling or dizzy when standing up, Sexual problems?, Trouble eating well?, Teeth or denture problems? and Problems using the telephone? and sometimes: Tiredness or fatigue? Have you fallen 2 or more times in the past year?: Yes Are you afraid of falling?: Yes Are you a smoker?: no During the past 4 weeks, how many drinks of wine, beer, or other alcoholic beverages did you have?: no alcohol at all Do you exercise for about 20 minutes 3 or more times a week?: yes, some of the time Have you been given information to help with the following?: yes: Hazards in your house that might hurt you? and no: Keeping track of your medications? How often do you have trouble taking medicines the way you have been told to take them?: I always take medicine as prescribed How confident are you that you can control & manage most of your health problems?: somewhat confident What is your race?: White Mini Mental State Exam (MMSE) Orientation What is the (year) (season) (date) (day) (month)?: year (2023) Where are we (state) (county) (town or city) (hospital) (floor)?: state (dc) Registration Name of 3 unrelated objects clearly and slowly, then ask patient to repeat all 3 of them. (1st repeat determines score. Make sure they can repeat all three): object 1, object 2 and object 3 Attention & Calculation (CHOOSE ONE) Spell WORLD backwards (DLROW): 5 letters Recall Ask patient to repeat the 3 items from question #3.: object 1, object 2 and object 3 Language Show patient a wristwatch & ask what it is. Repeat for pencil.: watch and pencil Ask the patient to repeat the phrase 'No ifs, ands, or buts' after you.: correct Ask the patient to 'take a piece of paper with their right hand' 'fold paper in half' 'place paper on floor': take paper in right hand, fold paper in half and place paper on floor Print the sentence 'CLOSE YOUR EYES' on a piece. If patient actually closes eyes then score.: followed written direction Give patient a blank piece of paper & ask to write a sentence. Score if it contains a noun & verb.: sentence contains subject and verb Ask patient to copy figure of intersecting pentagons exactly. Score if all 10 angles & 2 intersects are included.: all 10 angles present & 2 are intersected Score Score: 22 Activity of Daily Living Bathing - sponge bath, tub bath or shower: receives help in bathing only one body part (such as back or leg) (3 times a week) Dressing - getting clothes from closets & drawers, including inner/outer garments & fasteners.: gets clothes & gets completely dressed without help Toileting - going to the 'toilet room' for urine/bowel elimination & cleaning self/arranging clothes: goes to toilet room, cleans self, arranges clothes without help Transfer: moves in & out of bed and chair without help (may use support object) Continence: has occasional 'accidents' (at night only) Feeding: feeds self without help Total Score: 0 Information obtained from: patient Using telephone: independent Traveling: dependent Shopping: needs assistance Preparing meals: needs assistance Housework: needs assistance Taking medicine: independent Managing money: independent PHQ-9 Over the last 2 weeks, how often have you been bothered by any of the following problems? 1. Little interest or pleasure in doing things: more than half the days 2. Feeling down, depressed, or hopeless: not at all 3. Trouble falling or staying asleep, or sleeping too much: nearly every day 4. Feeling tired or having little energy: not at all 5. Poor appetite or overeating: more than half the days 6. Feeling bad about yourself - or that you are a failure or have let yourself or your family down: more than half the days 7. Trouble concentrating on things, such as reading the newspaper or watching television: not at all 8. Moving or speaking so slowly that other people could have noticed. Or the opposite - being so fidgety or restless that you have been moving around a lot more than usual: not at all 9. Thoughts that you would be better off or of hurting yourself in some way: more than half the days Total score: 11 Depression Screening Interpretation: Positive Depression Screening Follow-up: Existing condition and Declines treatment Depression Screening Done: Yes 09033 - PHQ-9 Billing: Yes Source: Developed by Drs. Stephen Porter, Susi Franco, Fredi Hewitt and colleagues, with an educational salina from [employer]. Review of Systems Const Reports as per HPI Physical Exam Vital Signs: Last Vital Signs Pulse 64 08/18/23 13:32 BP 130/86 08/18/23 13:32 Pulse Ox 96 08/18/23 13:32 Oxygen Delivery Method Room Air 08/18/23 13:32 BMI result Body Mass Index 32.7 Const General: cooperative Nutritional Appearance: obese Orientation/consciousness: patient oriented x3 Neuro Other: pt in wheelchair, cannot tandem walk, cannot walk and turn (in wheelchair), can rise from sitting to standing, passed whisper test General: patient oriented x3 Psych Appearance: grossly normal Mental Status: mental status grossly normal Speech and movement: Normal speech and movement present Affect: normal affect Attitude: cooperative Thought process: Normal thought process present Thought content: Normal thought content present Insight: Good insight present (Psych) Judgement: Good judgement present (Psych) Assessment & Plan Assessment & Plan (1) Encounter for subsequent annual wellness visit (AWV) in Medicare patient: Code(s): Z00.00 - Encounter for general adult medical examination without abnormal fi ndings Plan: Went over forms with pt Plan The patient agreed to the use of a medical imaging technologist for this encounter. Scribed for BENOIT Morin by Mercy Kwan medical imaging technologist, on 08/18/2023 at 14:00 EST. Medications: New ciprofloxacin HCl (Cipro) 500 mg PO Q24H 3 tabs 0RF 3 days Quality Reporting (2019) Depression/Bipolar (159/160/161/177) PHQ-9: Total score: 11 Coding Level of Care Code Medicare Subsequent (G0439) Diagnoses Encounter for subsequent annual wellness visit (AWV) in Medicare patient Z00.00 Advance Care Planning Forms completed: Health Care Proxy (explained to pt, will get filled out), MOLST (went over, will fill out at home) and Living will (not done yet, encouraged)
[2023-08-18 13:32] VITALS: BP 130/86; PULSE 64; O2SAT 96; BMI 32.7
== END 2023-08-18 16:26 | disposition home or self-care (01) ==
PROVIDERS: PCP Nurse Practitioner Family; Visit Provider Nurse Practitioner Family
DX: Z00.00 Encounter for general adult medical examination without abnormal findings (principal)
CPT/HCPCS: G0439

== ENCOUNTER 2023-08-25 13:36 | Outpatient (AMB) | payer MEDICARE, BC, OTHER, MEDICAID, SELFPAY ==
[2023-08-25 13:39] VITALS: BP 120/74; PULSE 71
--- NOTE | 2023-08-25 13:39 | A.OFFVIS_ITS ---
Intake Vital Signs 08/25/23 13:39 Height 5 ft 2 in BP 120/74 Blood Pressure Location Lt brachial Position Sitting Pulse 71 Pulse Source Pulse Oximeter Intake Visit Reasons: 6 mth f/up Fulfillment Coordinator Required: No Allergies adhesive tape Allergy (Severe, Verified 08/25/23 13:42) Blister from adhesive bandages and rash from plastic tape phenytoin [From Dilantin] Allergy (Severe, Verified 08/25/23 13:42) Rash sulfamethoxazole [From BACTRIM] Allergy (Unknown, Verified 08/25/23 13:42) UNKNOWN trimethoprim [From BACTRIM] Allergy (Unknown, Verified 08/25/23 13:42) UNKNOWN Medication List - Last Reconciled 08/25/23 by FLACO ShayC [afo right foot wear daily] albuterol sulfate 90 mcg/actuation 1 puff inhalation Q6H PRN 30 days aspirin 81 mg PO DAILY blood sugar diagnostic As directed blood sugar diagnostic (Accu-Chek Guide test strips) As directed three times a day edlahxjlox-xvkpofyzkyuyb-ermq 50-325-40 mg 1 tab PO ONCE PRN 30 days calcium citrate 500 mg (2 x 250 mg calcium) PO BID cholecalciferol (vitamin D3) 50 mcg PO DAILY ciprofloxacin HCl (Cipro) 500 mg PO Q24H 3 days [Diabetic shoes & 3 pair inserts as directed] diclofenac sodium 1% (Arthritis Pain (diclofenac)) 4 grams topical QID PRN dulaglutide (Trulicity) 3 mg (0.5 mL) subcut QWEEK 90 days duloxetine 20 mg PO DAILY incontinence pad, liner, disp daily use lancets As directed lancets (Accu-Chek Softclix Lancets) As directed three times a day loperamide (Imodium A-D) 2 mg PO Q6H PRN 30 days magnesium L-lactate ER 336 mg PO BID metoprolol succinate ER 25 mg PO BID 90 days mirabegron ER (Myrbetriq) 50 mg PO DAILY omeprazole 40 mg PO BID paroxetine HCl 40 mg PO QAM pravastatin 20 mg PO DAILY pregabalin 100 mg PO TID 30 days spironolactone 50 mg PO BID tramadol 50 mg PO BID PRN walker front with wheels only HPI 6 mth f/up HPI Details Wanda is a 77-year-old female past medical history hypertension, hyperlipidemia, diabetes, chronic kidney disease, obstructive sleep apnea with CPAP use, obesity, Gitelmans syndrome with chronically low magnesium who was admitted to [facility] in July 2022 with UTI, pneumonia, sepsis and found to have elevated troponins and abnormal echocardiogram with apical akinesis.? She was treated for NSTEMI with heparin for 48 hours.? Her discharge meds including aspirin, pravastatin, metoprolol. As outpatient a repeat echo showed normalization of wall motion. She was preop for colonoscopy so she underwent cardiac stress test which was abnormal and led to cardiac catheterization showing normal coronary arteries. Today she reports she has been doing very well since her last visit. She does have some shortness of breath with exertion which is not new. She denies any chest discomfort at rest or with activity. No heart palpitations, lightheadedness, presyncope, syncope, PND, orthopnea or edema. She has had 2 mechanical falls. She ambulates with a walker. She reports unsteadiness on her feet and is mostly sedentary. [facility] Medical History Cataract AVN (avascular necrosis of bone) Type 2 diabetes mellitus with diabetic polyneuropathy Hiatal hernia IBS (irritable bowel syndrome) GERD (gastroesophageal reflux disease) On beta jody at home Restrictive lung disease Obesity (BMI 30-39.9) GOPAL on CPAP Anemia B12 deficiency Vitamin D deficiency Breast pain, left Chronic kidney disease, stage 3 Decreased pedal pulses Diabetes mellitus with complication Retinopathy Celiac disease Right rotator cuff tear Osteoarthritis Seizures Gout Neuropathy Gitelman disease Essential hypertension Age-related osteoporosis without current pathological fracture Type 2 diabetes mellitus with other diabetic kidney complication Proteinuria Dyslipidemia Type 2 diabetes mellitus with chronic kidney disease Adult BMI 30.0-30.9 kg/sq m Surgical History History of esophagogastroduodenoscopy (EGD) S/P cardiac catheterization History of carpal tunnel surgery of right wrist History of back surgery Hx of colonoscopy History of total left knee replacement History of left shoulder replacement History of revision of total replacement of right hip joint Hx of fracture of fibula Family History Father No problems noted. Mother Cancer Diabetes Daughter Substance use disorder Mental health disorder Social History Household Members: Spouse and Children Household Members Other:: 2 daughter and their children Housing: House Are you a primary health care marketing specialist to a significant other at home: No Do you presently have visiting nurse or other home services: Yes (1 x week VIDEO JOURNALIST) Alcohol intake: unknown Patient Tobacco Use Status: Former Tobacco user Quit Date: 1963 Tobacco use type: Cigarette Years Smoked: 1963 e-Cigarette/Vaping Use: Never Used Second Hand Smoke Exposure: Yes Advance Directives Date on File: 08/26/22 service: No Current occupational status: retired Cognitive needs: No Hearing needs: No Vision needs: Yes Review of Systems Const All systems reviewed & are unremarkable except as noted in HPI and below ENT Denies dizziness Card Denies chest pain, Denies chest pain at rest, Denies chest pain with activity, Denies rapid heart rate, Denies pedal edema, Denies edema, Denies leg edema, Denies lightheadedness, Denies palpitations, Reports dyspnea, Reports dyspnea on exertion and Denies orthopnea Resp Denies cough, Reports dyspnea and Reports dyspnea on exertion GI Denies hematochezia and Denies change in stool character Musc Reports abnormal gait, Reports limited range of motion, Denies muscle cramps, Reports muscle weakness, Denies numbness, Denies radiating pain into limb, Denies stiffness and Denies tingling Neuro Reports abnormal gait, Denies dizziness, Denies numbness and Denies tingling Endo Denies palpitations Physical Exam Vital Signs: Last Vital Signs Pulse 71 08/25/23 13:39 BP 120/74 08/25/23 13:39 Const General: cooperative, healthy appearing, comfortable and no acute distress Orientation/consciousness: patient oriented x3 Neck Neck: Yes normal visual inspection Resp Effort & Inspection: normal respiratory effort Auscultation: clear to auscultation bilaterally, no rales, no rhonchi and no wheezes Cardio Jugular venous distension: no JVD Rate: regular rate Rhythm: regular rhythm Heart sounds: S1 normal heart sound present, S2 normal heart sound present, no murmurs and no rubs Neuro General: patient oriented x3 Extrem General: Yes normal to inspection, No no pedal edema and No calf tenderness Psych Appearance: grossly normal Mental Status: mental status grossly normal Speech and movement: Normal speech and movement present Assessment & Plan Assessment & Plan (1) NSTEMI (non-ST elevated myocardial infarction): Code(s): I21.4 - Non-ST elevation (NSTEMI) myocardial infarction Plan[place] [facility] [place] [facility] [place] UTI, pneumonia, sepsis. Troponins elevated up to 1757. Echocardiogram showed EF 55-60%, entire apex is akinetic, RV normal size and function, mild aortic stenosis. She was treated for NSTEMI with heparin drip for 48 hours. She was put on aspirin, beta-jody, and continued on statin. Ischemic workup not appropriate at that time. Thought to have Takotsubo cardiomyopathy versus possible LAD territory ischemia. Echocardiogram done on 11/27/2022 showed EF 68% with no regional wall motion abnormalities. She was preop for colonoscopy and underwent cardiac stress test on 12/22/2022 showing mixed ischemia and infarct in the apical and adjacent lateral and inferior wall with mild intensity ischemia of the inferior lateral and mid inferior wall. She then underwent a cardiac catheterization on 01/27/2023 showing completely normal coronary arteries. Diagnosis of takotsubo cardiomyopathy confirmed. Today she reports feeling well with no concerning symptoms. She has no decompensated heart failure on examination. Vital signs in the normal range. Will have her continue metoprolol XL for neurohormonal modulation. Signs and symptoms of heart failure reviewed. Cardiology follow-up in 6 months, sooner if needed. (2) Cardiomyopathy: Comment: Takotsubo cardiomyopathy 07/2022 Code(s): I42.9 - Cardiomyopathy, unspecified Qualifiers: Cardiomyopathy type: stress-induced Qualified Code(s): I51.81 - Takotsubo syndrome Plan: As above (3) SOB (shortness of breath): Comment: DYSPNEA ON EXERTION IS DUE TO COMBINATION OF, OBESITY, RESTRICTIVE LUNG DISEASE, ANEMIA (HB. 10 GM ) AND SOME DECONDITIONING IT IS HOLDING STABLE. Code(s): R06.02 - Shortness of breath Plan: As above. Multifactorial (4) Essential hypertension: Code(s): I10 - Essential (primary) hypertension Plan: Well controlled at present time. No med changes made (5) S/P cardiac catheterization: Comment: 01/27/2023, normal coronary arteries Code(s): Z98.890 - Other specified postprocedural states Plan: As above Plan Time spent on chart review, documentation, interview assess Coding Level of Care Code Est Pt Level 4 (25417) Diagnoses NSTEMI (non-ST elevated myocardial infarction) I21.4 Stress-induced cardiomyopathy I51.81 Cardiomyopathy type: stress-induced SOB (shortness of breath) R06.02 Essential hypertension I10 S/P cardiac catheterization Z98.890 Time Spent (min) 28
== END 2023-08-25 14:07 | disposition home or self-care (01) ==
PROVIDERS: PCP Nurse Practitioner Family; Visit Provider Nurse Practitioner Family
DX: I21.4 Non-ST elevation (NSTEMI) myocardial infarction (principal); I51.81 Takotsubo syndrome; R06.02 Shortness of breath; I10 Essential (primary) hypertension; Z98.890 Other specified postprocedural states
CPT/HCPCS: 99214

== ENCOUNTER 2023-08-25 15:14 | Outpatient (REF) | payer MEDICARE, BC, OTHER, MEDICAID, SELFPAY ==
--- NOTE | ~2023-08-25 | CT_ITS ---
EXAMINATION: CT ABDOMEN AND PELVIS WITHOUT CONTRAST CLINICAL INFORMATION: Hematuria COMPARISON: Abdominal ultrasound 05/26/2022 TECHNIQUE: Multidetector volumetric imaging was performed from the superior aspect of the liver through the pubic symphysis. Sagittal and coronal reformatted images were obtained on the technologist's workstation. This CT examination was performed using dose optimization techniques as appropriate, variously including the following: *Automated exposure control *Adjustment of mA and/or kV according to patient size (this includes techniques or standardized protocols for targeted exams where dose is matched to indication/reason for exam; i.e. extremities or head) *Use of iterative reconstruction technique DLP: 717 mGy-cm FINDINGS: Visualized lung bases demonstrate emphysematous changes. There is dependent atelectasis bilaterally. The liver is normal in size but demonstrates diffusely decreased attenuation. 1 cm left hepatic cyst. A few small calcifications are scattered throughout the liver. The gallbladder is normal in appearance. The pancreas, spleen and adrenal glands are unremarkable. Small posterior splenule. Both kidneys are mildly atrophic. No renal calculi or hydronephrosis of either kidney. 1 cm cyst of the left kidney. A large hiatal hernia is only partially visualized. Normal caliber loops of small and large bowel. Mild colonic diverticulosis without CT evidence to suggest active diverticulitis. Normal appendix. Normal caliber abdominal aorta demonstrating moderate to severe atherosclerotic disease. No retroperitoneal lymphadenopathy. Evaluation of pelvis is limited secondary to streak artifact from right hip prosthesis. The bladder is unremarkable. There is some coarse calcifications of the peripheral urethra. The uterus is surgically absent. There is a moderate right-sided inguinal hernia containing fat. No gross free pelvic fluid identified. Diffuse osteopenia. Partially visualized right hip prosthesis. There are degenerative and postsurgical changes of the spine. Mild compression deformities of the T10, T11, L3 and L4 vertebral bodies appear chronic in nature. CT/CT abdomen pelvis wo IV con IMPRESSION: 1. No renal calculi or hydronephrosis of either kidney. 2. Diffusely decreased liver attenuation suggesting hepatic steatosis. Correlation with liver enzymes recommended. 3. Mild colonic diverticulosis without CT evidence to suggest active diverticulitis. 4. Large hiatal hernia. Fleischner guidelines were followed.
[2023-08-26 08:39] LABS: GFR POC 57
== END 2023-08-25 15:15 | disposition home or self-care (01) ==
LOC: HO.CT 15:14
PROVIDERS: PCP Nurse Practitioner Family; Visit Provider Nurse Practitioner Family
DX: R31.9 Hematuria, unspecified (principal)
CPT/HCPCS: 74176; 82565; 99212

== ENCOUNTER 2023-08-31 12:56 | Outpatient (REF) | payer MEDICARE, BC, OTHER, MEDICAID, SELFPAY ==
--- NOTE | ~2023-08-31 | US_ITS ---
EXAMINATION: US NONINVASIVE ASSESSMENT OF THE ARTERIES OF BOTH LOWER EXTREMITIES INCLUDING PVR EXAM AND BILATERAL LOWER EXTREMITY DUPLEX. CLINICAL INFORMATION: Peripheral vascular disease COMPARISON: Lower extremity arterial duplex and LYLE 01/31/2021 TECHNIQUE: Ankle pulse volume recordings, ankle pressure measurements and ankle brachial indices were obtained of the lower extremity arterial system bilaterally in addition to duplex Doppler techniques with wave form analysis and measurement of velocities in the common femoral, profunda femoral, superficial femoral, popliteal, tibial and peroneal arteries. The study was performed only at rest. FINDINGS: RIGHT LE. THE RIGHT ANKLE-BRACHIAL INDEX IS: 1.4 >0.97-1.25 = normal - no significant arterial disease 0.75-0.96 = mild peripheral arterial disease 0.5-0.74 = moderate peripheral arterial disease <0.50 = severe peripheral arterial disease <0.30 = critical arterial disease 2. SEGMENTAL PRESSURES (mmHg): Ankle: PT 206 3. PVR WAVEFORMS: Ankle: Dampened 4. DIRECT DUPLEX: Common femoral artery: 105 cm/s, Multiphasic Profunda femoris artery: 149 cm/s, Multiphasic Superficial femoral artery (proximal): 79 cm/s, Multiphasic Superficial femoral artery (mid): 96 cm/s, Multiphasic Superficial femoral artery (distal): 60 cm/s, Multiphasic Proximal Popliteal artery: 48 cm/s, Multiphasic Mid posterior tibial artery: 32 cm/s, Multiphasic Peroneal artery: 43 cm/s, Multiphasic LEFT LE. THE LEFT ANKLE-BRACHIAL INDEX IS: 1.4 >0.97-1.25 = normal - no significant arterial disease 0.75-0.96 = mild peripheral arterial disease 0.5-0.74 = moderate peripheral arterial disease <0.50 = severe peripheral arterial disease <0.30 = critical arterial disease 2. SEGMENTAL PRESSURES: Ankle: PT 206 3. PVR WAVEFORMS: Ankle: Dampened 4. DIRECT DUPLEX: Common femoral artery: 114 cm/s, Multiphasic Profunda femoris artery: 66 cm/s, Multiphasic Superficial femoral artery (proximal): 113 cm/s, Multiphasic Superficial femoral artery (mid): 108 cm/s, Multiphasic Superficial femoral artery (distal): 130 cm/s, Multiphasic Proximal Popliteal artery: 62 cm/s, Multiphasic Mid posterior tibial artery: 35 cm/s, Multiphasic US/US arterial duplex LE BI IMPRESSION: 1. Bilateral LYLE 1.4 (previously 1.28) suggestive of vessel calcification. 2. No significant lower extremity peripheral vascular disease based off velocity criteria.
--- NOTE | ~2023-08-31 | US_ITS ---
EXAMINATION: US NONINVASIVE ASSESSMENT OF THE ARTERIES OF BOTH LOWER EXTREMITIES INCLUDING PVR EXAM AND BILATERAL LOWER EXTREMITY DUPLEX. CLINICAL INFORMATION: Peripheral vascular disease COMPARISON: Lower extremity arterial duplex and LYLE 01/31/2021 TECHNIQUE: Ankle pulse volume recordings, ankle pressure measurements and ankle brachial indices were obtained of the lower extremity arterial system bilaterally in addition to duplex Doppler techniques with wave form analysis and measurement of velocities in the common femoral, profunda femoral, superficial femoral, popliteal, tibial and peroneal arteries. The study was performed only at rest. FINDINGS: RIGHT LE. THE RIGHT ANKLE-BRACHIAL INDEX IS: 1.4 >0.97-1.25 = normal - no significant arterial disease 0.75-0.96 = mild peripheral arterial disease 0.5-0.74 = moderate peripheral arterial disease <0.50 = severe peripheral arterial disease <0.30 = critical arterial disease 2. SEGMENTAL PRESSURES (mmHg): Ankle: PT 206 3. PVR WAVEFORMS: Ankle: Dampened 4. DIRECT DUPLEX: Common femoral artery: 105 cm/s, Multiphasic Profunda femoris artery: 149 cm/s, Multiphasic Superficial femoral artery (proximal): 79 cm/s, Multiphasic Superficial femoral artery (mid): 96 cm/s, Multiphasic Superficial femoral artery (distal): 60 cm/s, Multiphasic Proximal Popliteal artery: 48 cm/s, Multiphasic Mid posterior tibial artery: 32 cm/s, Multiphasic Peroneal artery: 43 cm/s, Multiphasic LEFT LE. THE LEFT ANKLE-BRACHIAL INDEX IS: 1.4 >0.97-1.25 = normal - no significant arterial disease 0.75-0.96 = mild peripheral arterial disease 0.5-0.74 = moderate peripheral arterial disease <0.50 = severe peripheral arterial disease <0.30 = critical arterial disease 2. SEGMENTAL PRESSURES: Ankle: PT 206 3. PVR WAVEFORMS: Ankle: Dampened 4. DIRECT DUPLEX: Common femoral artery: 114 cm/s, Multiphasic Profunda femoris artery: 66 cm/s, Multiphasic Superficial femoral artery (proximal): 113 cm/s, Multiphasic Superficial femoral artery (mid): 108 cm/s, Multiphasic Superficial femoral artery (distal): 130 cm/s, Multiphasic Proximal Popliteal artery: 62 cm/s, Multiphasic Mid posterior tibial artery: 35 cm/s, Multiphasic US/US LYLE complete IMPRESSION: 1. Bilateral LYLE 1.4 (previously 1.28) suggestive of vessel calcification. 2. No significant lower extremity peripheral vascular disease based off velocity criteria.
== END 2023-08-31 12:57 | disposition home or self-care (01) ==
LOC: HO.US 12:56
PROVIDERS: PCP Nurse Practitioner Family; Visit Provider Surgery Vascular Surgery
DX: I70.213 Atherosclerosis of native arteries of extremities with intermittent claudication, bilateral legs (principal)
CPT/HCPCS: 93923; 93925

== ENCOUNTER 2023-09-15 12:56 | Outpatient (REF) | payer MEDICARE, OTHER, BC, MEDICAID, SELFPAY ==
[2023-09-15 14:27] LABS: Anion Gap 15 (12-20); Blood Urea Nitrogen 24 mg/dL (9-16); Calcium 10.1 mg/dL (8.4-10.2); Carbon Dioxide 24 mmol/L (22-29); Chloride 98 mmol/L (96-108); Estimated Glomerular Filt Rate 26; Glucose Random 106 mg/dL (60-115); Potassium 3.9 mmol/L (3.3-5.1); Sodium 133 mmol/L (135-145)
[2023-09-15 16:21] LABS: Estimated Average Glucose 131 mg/dL; Hemoglobin A1c % 6.2 % (<6.0)
[2023-09-16 14:38] LABS: Vitamin B12 232 pg/mL (200-900)
[2023-09-19 15:58] LABS: Intrinsic Factor Antibodies Negative (Negative)
[2023-09-22 13:48] LABS: Parietal Cell Antibody <=20.0 Unit (<=20.0)
== END 2023-09-15 12:57 | disposition home or self-care (01) ==
LOC: HO.LAB 12:56
PROVIDERS: Absent Provider Internal Medicine Nephrology; PCP Nurse Practitioner Family; Visit Provider Nurse Practitioner Family
DX: E53.8 Deficiency of other specified B group vitamins (principal); N25.89 Other disorders resulting from impaired renal tubular function; E11.3293 Type 2 diabetes mellitus with mild nonproliferative diabetic retinopathy without macular edema, bilateral
CPT/HCPCS: 36415; 80048; 82607; 83036; 83516; 83735; 86340

== ENCOUNTER 2023-10-01 10:50 | Outpatient (AMB) | payer MEDICARE, BC, OTHER, MEDICAID, SELFPAY ==
[2023-10-01 10:53] VITALS: BP 120/70; PULSE 71; O2SAT 95
--- NOTE | 2023-10-01 10:53 | A.OFFVIS_ITS ---
Intake Vital Signs 10/01/23 10:53 Height 5 ft 2 in BP 120/70 Blood Pressure Location Lt brachial Position Sitting Pulse 71 Pulse Source Pulse Oximeter Pulse Oximetry (%) 95 Oxygen Delivery Method Room Air Intake Visit Reasons: copd Intake Note: pt is here to get re-established for GOPAL care and needs a new cpap machine,she states both studies were done at [facility] Required: No Allergies adhesive tape Allergy (Severe, Verified 10/01/23 11:06) Blister from adhesive bandages and rash from plastic tape phenytoin [From Dilantin] Allergy (Severe, Verified 10/01/23 11:06) Rash sulfamethoxazole [From BACTRIM] Allergy (Unknown, Verified 10/01/23 11:06) UNKNOWN trimethoprim [From BACTRIM] Allergy (Unknown, Verified 10/01/23 11:06) UNKNOWN Medication List - Last Reconciled 10/01/23 by Unruly Siu MD [afo right foot wear daily] albuterol sulfate 90 mcg/actuation 1 puff inhalation Q6H PRN 30 days aspirin 81 mg PO DAILY blood sugar diagnostic As directed blood sugar diagnostic (Accu-Chek Guide test strips) As directed three times a day xxpimajala-hjbvjxruzyfxz-jeyd 50-325-40 mg 1 tab PO ONCE PRN 30 days calcium citrate 500 mg (2 x 250 mg calcium) PO BID cholecalciferol (vitamin D3) 50 mcg PO DAILY [Diabetic shoes & 3 pair inserts as directed] diaper,brief,adult,disposable (Briefs, Adult-Extra Large) Overnight pull up briefs (extra absorbant), size XL, uses 3 per day diclofenac sodium 1% (Arthritis Pain (diclofenac)) 4 grams topical QID PRN dulaglutide (Trulicity) 3 mg (0.5 mL) subcut QWEEK 90 days duloxetine 20 mg PO DAILY incontinence pad, liner, disp large, superabsorbant, uses 4 per day incontinence pad, liner, disp daily use lancets As directed lancets (Accu-Chek Softclix Lancets) As directed three times a day loperamide (Imodium A-D) 2 mg PO Q6H PRN 30 days magnesium L-lactate ER 336 mg PO BID mecobalamin (vitamin B12) 1,000 mcg sublingual DAILY metoprolol succinate ER 25 mg PO BID 90 days mirabegron ER (Myrbetriq) 50 mg PO DAILY omeprazole 40 mg PO BID paroxetine HCl 40 mg PO QAM pravastatin 20 mg PO DAILY pregabalin 100 mg PO TID 30 days spironolactone 50 mg PO BID tramadol 50 mg PO BID PRN walker front with wheels only Do you need a note to return to daycare/school/sports/work: No HPI copd HPI Details THIS 77 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 SHE HAD SYMPTOMS OF SL EEP APNEA AND CONF IRMED BY POLYSOMNO GRAM STUDY IN THE SLEEP LAB IN NOVEMBER 18. THAT STUDY SH OWED THAT SHE HAD RATHER VERY SEVERE OBSTRUCTIVE SLEEP APNEA WITH TOTAL SLEEP TIME RDI 116 . SHE RESPONDED VE RY WELL TO CPAP TI TRATION. THERE AFT ER SHE WAS STARTED ON CPAP THERAPY W ITH A FULLFACE ARMANDO Tanner OF SMALL SIZE, A ND SHE HAS BEEN US ING THE CPAP SINCE THEN EVERY NIGHT, WITH VERY GOOD RE SPONSE. SHE HAS BE EN GETTING HER SUP PLIES REGULARLY. SHE HAS BEEN USING IT FOR AT LEAST. 6-7 HOURS EVERY N IGHT SHE CLAIMS TH AT IN FACT SHE JUS T CAN NOT SLEEP WI THOUT PUTTING ON T HE CPAP. SHE WAS T OLD BY DME SUPPLIE R THAT HER MACHINE IS QUITE OLD AND SHE NEED TO HAVE A NEW REPLACEMENT. THAT IS WHY SHE ROE S COME BACK FOR FO LLOW-UP. IN THE OR ANTIME SHE HAS BEC OME MORE DISABLED AND HAS HARD TIME TO WALK AROUND EXC EPT WITH THE [facility] R. SHE GOES OUTDO ORS IN A [facility]. SHE HAS HISTORY OF GROSS OBESITY AND RESTRICTIVE ZANA NG DISEASE SECONDA RY TO THAT. SHE H BEEN DOING DEEP BREATHING EXERCIS ES AND USES PROAIR ONLY ONCE IN A WH ILE IF SHE FEELS C ONGESTED. SHE IS P ACOSTA TO HAVE RECUR RENT RESPIRATORY I NFECTIONS BUT MOST LY TREATED AT HOME WITH COURSES OF A NTIBIOTICS. SHE KN OWS VERY WELL THAT BECAUSE OF HER RE STRICTIVE LUNG DIS EASE SHE IS NOT AB LE TO CLEAR AIRWAY S EFFECTIVELY. SHE DOES DO DEEP KADE THING EXERCISES BU T NOT REGULARLY. FAR CPAP IS CONCERNED SHE USES EVERY NIGHT AND S LEEPS AT LEAST 6-7 HOURS PER NIGHT. SHE DENIES DAYTIME SLEEPINESS. [facility] Medical History Cataract AVN (avascular necrosis of bone) Type 2 diabetes mellitus with diabetic polyneuropathy Hiatal hernia IBS (irritable bowel syndrome) GERD (gastroesophageal reflux disease) On beta jody at home Restrictive lung disease Obesity (BMI 30-39.9) GOPAL on CPAP Anemia B12 deficiency Vitamin D deficiency Breast pain, left Chronic kidney disease, stage 3 Decreased pedal pulses Diabetes mellitus with complication Retinopathy Celiac disease Right rotator cuff tear Osteoarthritis Seizures Gout Neuropathy Gitelman disease Essential hypertension Age-related osteoporosis without current pathological fracture Type 2 diabetes mellitus with other diabetic kidney complication Proteinuria Dyslipidemia Type 2 diabetes mellitus with chronic kidney disease Adult BMI 30.0-30.9 kg/sq m Surgical History History of esophagogastroduodenoscopy (EGD) S/P cardiac catheterization History of carpal tunnel surgery of right wrist History of back surgery Hx of colonoscopy History of total left knee replacement History of left shoulder replacement History of revision of total replacement of right hip joint Hx of fracture of fibula Family History Father No problems noted. Mother Cancer Diabetes Daughter Substance use disorder Mental health disorder Social History Household Members: Spouse and Children Household Members Other:: 2 daughter and their children Housing: House Are you a primary dialysis patient care technician to a significant other at home: No Do you presently have visiting nurse or other home services: Yes (1 x week MASTER YACHT) Alcohol intake: unknown Patient Tobacco Use Status: Former Tobacco user Quit Date: 1963 Tobacco use type: Cigarette Years Smoked: 1963 e-Cigarette/Vaping Use: Never Used Second Hand Smoke Exposure: Yes Advance Directives Date on File: 08/26/22 service: No Current occupational status: retired Cognitive needs: No Hearing needs: No Vision needs: Yes Physical Exam Vital Signs: Last Vital Signs Pulse 71 10/01/23 10:53 BP 120/70 10/01/23 10:53 Pulse Ox 95 10/01/23 10:53 Oxygen Delivery Method Room Air 10/01/23 10:53 COULD NOT BE WEIGHED, SHE WAS IN THE WHEELCHAIR. Const General: comfortable, no acute distress, alert and awake Orientation/consciousness: patient oriented x3 HEENT Head: Yes normal to inspection General nose exam: No nasal polyps present and No nasal discharge present Face and sinus: Yes sinuses nontender Mouth: oropharynx normal Throat: Yes posterior oropharynx normal Eyes General: appearance normal, both eyes and all related structures Neck Neck: Yes normal visual inspection, Yes no lymphadenopathy, Yes trachea midline and Yes no JVD Thyroid: Thyroid normal Chest Chest palpation & inspection: normal inspection of the chest, normal palpation of entire chest wall and no tenderness Resp Other: PERCUSSION NOTE IS RESONANT. BREATH SOUNDS ARE SOMEWHAT DECREASED OVER THE BASILAR AREAS BUT REST OF THE LUNG HOLLEY ARE CLEAR WITHOUT ANY WHEEZES OR RHONCHI. Cardio Palpation: normal PMI Rate: regular rate Rhythm: regular rhythm Heart sounds: no gallops and no murmurs GI Palpation (GI): Soft to palpation, nontender, No hepatosplenomegaly present and no masses Auscultation: normal bowel sounds Back/Spine/Pelvis Thoracic/Lumbar Spine: thoracic and lumbar spine normal to inspection and thoraco-lumbar ROM limited Skin General skin exam: no rashes or lesions noted Neuro General: patient oriented x3, No gait normal (BEEN SHUNT IS NON AMBULATORY, AT HOME CAN WALK WITH A WALKER ) and no focal motor deficits Cranial nerves: Yes CN's II-XII intact bilaterally Extrem General: Yes normal to inspection, Yes no clubbing, cyanosis or edema and Yes no calf tenderness Psych Appearance: grossly normal Speech and movement: Normal speech and movement present Results Reviewed Results Reviewed: I REVIEWED THE RESULTS OF SLEEP STUDY IN NOVEMBER 2017. SHE HAD EVIDENCE OF VERY SEVERE OBSTRUCTIVE SLEEP APNEA WITH TOTAL SLEEP TIME RDI 116. SHE HAD RESPONDED WELL TO THE CPAP TITRATION AND A FULLFACE MASK OF SMALL SIZE WITH PRESSURE OF 15 CM HAD BEEN RECOMMENDED. ACCORDING TO THE PATIENT SHE HAS BEEN USING THE CPAP VERY REGULARLY Assessment & Plan Assessment & Plan (1) Obesity (BMI 30-39.9): Comment: PATIENT HAS CHRONIC, GROSS OBESITY, WITH ASSOCIATED DIABETES MELLITUS. SHE HAS BEEN WATCHING HER DIET AND HAS SUCCESSFULLY LOST SOME WEIGHT. Code(s): E66.9 - Obesity, unspecified Plan: ENCOURAGED TO KEEP ON LOSING MORE WEIGHT, BY WATCHING HER DIET (2) Restrictive lung disease: Comment: HER PREVIOUS PULMONARY FUNCTION TESTING HAS SHOWN THAT SHE DOES NOT HAVE ANY OBSTRUCTIVE AIRWAY DISORDER. SHE DOES HAVE RESTRICTIVE LUNG DISEASE MAINLY DUE TO GROSS OBESITY. SHE DOES HAVE DIFFICULTY IN EXPECTORATING THE MUCUS SOMETIMES, AND MAY BE DUE TO BASILAR HYPOVENTILATION. Code(s): J98.4 - Other disorders of lung Plan: PATIENT ADVISED TO DO DEEP BREATHING EXERCISES WITH INCENTIVE SPIROMETER AT HOME. SHE MAY USE PROAIR 1 OR 2 PUFFS Q 6 HOURS ONLY P.R.N. IF SHE FEELS CONGESTED HAS DIFFICULTY IN EXPECTORATING THE MUCUS. (3) GOPAL on CPAP: Comment: SHE IS A CONFIRMED CASE OF SEVERE OBSTRUCTIVE SLEEP APNEA PER STUDY IN 2018. SHE HAS BEEN TREATED VERY WELL WITH THE USE OF CPAP, FULLFACE MASK OF SMALL SIZE AND PRESSURE. OF 15 CM. SHE LOVES HER CPAP AND IN FACT WITHOUT IT CAN NOT SLEEP. HER CPAP DEVICE IS ALMOST 6 YEARS OLD SHE NEEDS A NEW REPLACEMENT, FOR WHICH I HAVE WILL SEND THE ORDERS. Code(s): G47.33 - Obstructive sleep apnea (adult) (pediatric); Z99.89 - Dependence on other enabling machines and devices Plan: COMMENDED FOR USING HER CPAP VERY REGULARLY. ORDERS FOR A NEW CPAP. DEVICE ARE BEING SENT Coding Level of Care Code Est Pt Level 4 (76453) Diagnoses Obesity (BMI 30-39.9) E66.9 Restrictive lung disease J98.4 GOPAL on CPAP G47.33; Z99.89
== END 2023-10-01 11:21 | disposition home or self-care (01) ==
PROVIDERS: PCP Nurse Practitioner Family; Visit Provider Internal Medicine
DX: E66.9 Obesity, unspecified (principal); J98.4 Other disorders of lung; G47.33 Obstructive sleep apnea (adult) (pediatric); Z99.89 Dependence on other enabling machines and devices
CPT/HCPCS: 99214

== ENCOUNTER → 2023-10-01 10:50 | Outpatient (BNVA) | payer MEDICARE, BC, OTHER, MEDICAID, SELFPAY | PROVIDERS: PCP Nurse Practitioner Family; Visit Provider Internal Medicine | DX: J98.4 Other disorders of lung (principal); G47.33 Obstructive sleep apnea (adult) (pediatric); E66.9 Obesity, unspecified; Z99.89 Dependence on other enabling machines and devices | CPT/HCPCS: 99212 ==

== ENCOUNTER 2023-10-20 09:41 | Outpatient (AMB) | payer MEDICARE, OTHER, BC, MEDICAID, SELFPAY ==
--- NOTE | 2023-10-20 09:43 | MHC.OFFVIS ---
Intake Vital Signs 10/20/23 09:43 Height 5 ft 2 in Intake Visit Reasons: F/U PAD US 08/31/23 Intake Note: Arterial US follow up 08/31/23, last visit 01/28/22. Bilateral LE pain, has neuropathy in her feet so she uses a wheelchair. Pt states bilateral LE cramping in the calf. States she has had hip surgery multiple times as well so she has multiple sources of pain. Accompanied by: Self / Same As Patient Allergies adhesive tape Allergy (Severe, Verified 10/20/23 09:50) Blister from adhesive bandages and rash from plastic tape phenytoin [From Dilantin] Allergy (Severe, Verified 10/20/23 09:50) Rash sulfamethoxazole [From BACTRIM] Allergy (Unknown, Verified 10/20/23 09:50) UNKNOWN trimethoprim [From BACTRIM] Allergy (Unknown, Verified 10/20/23 09:50) UNKNOWN HPI F/U PAD US 08/31/23 HPI Details Very complex 69-year-old female presents for follow-up regarding peripheral vascular disease. She now presents for surveillance follow-up. She reports she has had no significant interval issues. She notes that her right leg is shorter than her left leg. She has no significant issues or discomfort associated with ambulating at the current time. She now presents for follow-up with noninvasive testing. [facility] Medical History Cataract AVN (avascular necrosis of bone) Type 2 diabetes mellitus with diabetic polyneuropathy Hiatal hernia IBS (irritable bowel syndrome) GERD (gastroesophageal reflux disease) On beta jody at home Restrictive lung disease Obesity (BMI 30-39.9) GOPAL on CPAP Anemia B12 deficiency Vitamin D deficiency Breast pain, left Chronic kidney disease, stage 3 Decreased pedal pulses Diabetes mellitus with complication Retinopathy Celiac disease Right rotator cuff tear Osteoarthritis Seizures Gout Neuropathy Gitelman disease Essential hypertension Age-related osteoporosis without current pathological fracture Type 2 diabetes mellitus with other diabetic kidney complication Proteinuria Dyslipidemia Type 2 diabetes mellitus with chronic kidney disease Adult BMI 30.0-30.9 kg/sq m Surgical History History of esophagogastroduodenoscopy (EGD) S/P cardiac catheterization History of carpal tunnel surgery of right wrist History of back surgery Hx of colonoscopy History of total left knee replacement History of left shoulder replacement History of revision of total replacement of right hip joint Hx of fracture of fibula Family History Father No problems noted. Mother Cancer Diabetes Daughter Substance use disorder Mental health disorder Social History Household Members: Spouse and Children Household Members Other:: 2 daughter and their children Housing: House Are you a primary home care rn to a significant other at home: No Do you presently have visiting nurse or other home services: Yes (1 x week PRIMARY CARE COORDINATOR) Alcohol intake: unknown Patient Tobacco Use Status: Former Tobacco user Quit Date: 1963 Tobacco use type: Cigarette Years Smoked: 1963 e-Cigarette/Vaping Use: Never Used Second Hand Smoke Exposure: Yes Advance Directives Date on File: 08/26/22 service: No Current occupational status: retired Cognitive needs: No Hearing needs: No Vision needs: Yes Review of Systems Const All systems reviewed & are unremarkable except as noted in HPI and below Reports no additional complaints ENT Reports Normal hearing present Card Denies chest pain, Denies chest pain at rest, Denies chest pain with activity and Denies pedal edema Resp Denies cough GI Denies abdominal pain Musc Denies abnormal gait, Denies muscle cramps and Denies radiating pain into limb Skin/Breast Denies skin ulcer and Denies wounds Neuro Reports Normal hearing present and Denies abnormal gait Psych Reports no additional complaints Physical Exam Const General: cooperative, healthy appearing and comfortable Orientation/consciousness: oriented to person, oriented to place and oriented to time HEENT Head: Yes normal to inspection Neck Neck: Yes normal visual inspection Carotids: no bruits Chest Chest palpation & inspection: normal inspection of the chest Resp Effort & Inspection: normal respiratory effort and able to speak in complete sentences Auscultation: clear to auscultation bilaterally, no crackles, no rales, no rhonchi and no wheezes Cardio Rate: regular rate Rhythm: regular rhythm Heart sounds: S1 normal heart sound present and S2 normal heart sound present Bruits: no carotid bruits Peripheral pulses: Peripheral pulses 2+ throughout GI Inspection: Yes normal to inspection Skin Wounds: no wounds Hair: normal Neuro General: oriented to person, oriented to place and oriented to time Cranial nerves: Yes CN's II-XII intact bilaterally and Yes Normal hearing present Cognition (Neuro): normal cognition Motor exam (neuro): 5/5 motor strength present throughout Extrem Other: venous exam: No significant superficial varicosities or spider telangiectasias, minimal edema General: No clubbing, No cyanosis and No edema Psych Appearance: grossly normal Mental Status: mental status grossly normal Speech and movement: Normal speech and movement present Results Reviewed Results Reviewed: Noninvasive arterial testing dated 08/31/2023 demonstrates LYLE on the right of 1.4 and on the left of 1.4. Both have multi phasic flow down. Written report and images were reviewed Assessment & Plan Assessment & Plan (1) PAD (peripheral artery disease): Code(s): I73.9 - Peripheral vascular disease, unspecified Plan: In short patient has no evidence of significant peripheral vascular disease. At the current time it does appear to be stable. It has been stable on 2 consecutive studies. She will follow up with us on an as-needed basis. She may benefit from a podiatric evaluation. She once again she will follow up with us on an as-needed basis. Thank you for allowing us to assist in her care. If there are any questions or concerns please do not hesitate to contact us. Coding Level of Care Code Est Pt Level 4 (01388) Diagnoses PAD (peripheral artery disease) I73.9
== END 2023-10-20 10:09 | disposition home or self-care (01) ==
PROVIDERS: PCP Nurse Practitioner Family; Visit Provider Surgery Vascular Surgery
DX: I73.9 Peripheral vascular disease, unspecified (principal)
CPT/HCPCS: 99213

== ENCOUNTER → 2023-10-20 09:41 | Outpatient (BNVA) | payer MEDICARE, OTHER, BC, MEDICAID, SELFPAY | PROVIDERS: PCP Nurse Practitioner Family; Visit Provider Surgery Vascular Surgery | DX: I73.9 Peripheral vascular disease, unspecified (principal) | CPT/HCPCS: 99212 ==

== ENCOUNTER 2023-11-04 11:42 | Outpatient (AMB) | payer MEDICARE, BC, OTHER, MEDICAID, SELFPAY ==
--- NOTE | 2023-11-04 11:46 | A.OFFPC_ITS ---
Vital Signs 11/04/23 11:52 Weight 179 lb BP 120/82 Blood Pressure Location Lt brachial Position Sitting Pulse 66 Pulse Source Pulse Oximeter Pulse Oximetry (%) 94 Oxygen Delivery Method Room Air Intake Visit Reasons: 3 Month follow up per JG for DM Intake Note: Patient here for f/u and would like to talk about rib pain. Allergies adhesive tape Allergy (Severe, Verified 11/04/23 11:52) Blister from adhesive bandages and rash from plastic tape phenytoin [From Dilantin] Allergy (Severe, Verified 11/04/23 11:52) Rash sulfamethoxazole [From BACTRIM] Allergy (Unknown, Verified 11/04/23 11:52) UNKNOWN trimethoprim [From BACTRIM] Allergy (Unknown, Verified 11/04/23 11:52) UNKNOWN Medication List - Last Reconciled 11/04/23 by SHARON Sweeney-BC [afo right foot wear daily] albuterol sulfate 90 mcg/actuation 1 puff inhalation Q6H PRN 30 days aspirin 81 mg PO DAILY blood sugar diagnostic As directed blood sugar diagnostic (Accu-Chek Guide test strips) As directed three times a day owzhouiytb-hrkklzfkeyovo-zdyq 50-325-40 mg 1 tab PO ONCE PRN 30 days calcium citrate 500 mg (2 x 250 mg calcium) PO BID cholecalciferol (vitamin D3) 50 mcg PO DAILY [Diabetic shoes & 3 pair inserts as directed] diaper,brief,adult,disposable (Briefs, Adult-Extra Large) Overnight pull up briefs (extra absorbant), size XL, uses 3 per day diclofenac sodium 1% (Arthritis Pain (diclofenac)) 4 grams topical QID PRN dulaglutide (Trulicity) 3 mg (0.5 mL) subcut QWEEK 90 days duloxetine 20 mg PO DAILY incontinence pad, liner, disp large, superabsorbant, uses 4 per day incontinence pad, liner, disp daily use lancets As directed lancets (Accu-Chek Softclix Lancets) As directed three times a day loperamide (Imodium A-D) 2 mg PO Q6H PRN 30 days magnesium L-lactate ER 336 mg PO BID mecobalamin (vitamin B12) 1,000 mcg sublingual DAILY metoprolol succinate ER 25 mg PO BID 90 days mirabegron ER (Myrbetriq) 50 mg PO DAILY omeprazole 40 mg PO BID paroxetine HCl 40 mg PO QAM pravastatin 20 mg PO DAILY pregabalin 100 mg PO TID 30 days spironolactone 50 mg PO BID tramadol 50 mg PO BID PRN walker front with wheels only Tobacco use date assessed: 11/04/23 Fall risk assessment: No Falls in past year Last assessed Fall Risk: 11/04/23 HPI 3 Month follow up per JG for DM HPI Details Pt has a hx of B12 deficiency. B12 was 232 at the end of August. Pt is on oral B12, though she reports missing multiples doses. Encouraged compliance with this med. Denies fever, chills, and dizziness. [facility] Medical History Cataract AVN (avascular necrosis of bone) Type 2 diabetes mellitus with diabetic polyneuropathy Hiatal hernia IBS (irritable bowel syndrome) GERD (gastroesophageal reflux disease) On beta jody at home Restrictive lung disease Obesity (BMI 30-39.9) GOPAL on CPAP Anemia B12 deficiency Vitamin D deficiency Breast pain, left Chronic kidney disease, stage 3 Decreased pedal pulses Diabetes mellitus with complication Retinopathy Celiac disease Right rotator cuff tear Osteoarthritis Seizures Gout Neuropathy Gitelman disease Essential hypertension Age-related osteoporosis without current pathological fracture Type 2 diabetes mellitus with other diabetic kidney complication Proteinuria Dyslipidemia Type 2 diabetes mellitus with chronic kidney disease Adult BMI 30.0-30.9 kg/sq m Surgical History History of esophagogastroduodenoscopy (EGD) S/P cardiac catheterization History of carpal tunnel surgery of right wrist History of back surgery Hx of colonoscopy History of total left knee replacement History of left shoulder replacement History of revision of total replacement of right hip joint Hx of fracture of fibula Family History Father No problems noted. 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) Alcohol intake: unknown Patient Tobacco Use Status: Former Tobacco user Quit Date: 1963 Tobacco use type: Cigarette Years Smoked: 1963 e-Cigarette/Vaping Use: Never Used Second Hand Smoke Exposure: Yes Advance Directives Date on File: 08/26/22 service: No Current occupational status: retired Cognitive needs: No Hearing needs: No Vision needs: Yes Questionnaire Thrive Questionnaire Date Thrive assessed: 05/08/21 Review of Systems Const Reports as per HPI Physical exam (Primary Care) Vital Signs: Last Vital Signs Pulse 66 11/04/23 11:52 BP 120/82 11/04/23 11:52 Pulse Ox 94 11/04/23 11:52 Oxygen Delivery Method Room Air 11/04/23 11:52 Tobacco/Smoking Status: Tobacco use Status Tobacco use date assessed 11/04/23 11/04/23 11:55 Patient Tobacco Use Status Former Tobacco user 11/04/23 11:47 Tobacco use type Cigarette 11/04/23 11:47 e-Cigarette/Vaping Use Never Used 11/04/23 11:47 Thrive Assessment: Date of Thrive Assessment Date Thrive assessed 05/08/21 11/04/23 11:47 Const General: cooperative Orientation/consciousness: patient oriented x3 Resp Auscultation: clear to auscultation bilaterally Cardio Rate: regular rate Rhythm: regular rhythm Heart sounds: S1 normal heart sound present and S2 normal heart sound present Neuro General: patient oriented x3 Psych Appearance: grossly normal Mental Status: mental status grossly normal Speech and movement: Normal speech and movement present Affect: normal affect Attitude: cooperative Thought process: Normal thought process present Thought content: Normal thought content present Insight: Good insight present (Psych) Judgement: Good judgement present (Psych) Assessment and Plan Assessment & Plan (1) B12 deficiency: Code(s): E53.8 - Deficiency of other specified B group vitamins Plan: encouraged pt to set alarms or a reminder to take her b12. Plan The patient agreed to the use of a medical research tech for this encounter. Scribed for BENOIT Morin by Mercy Kwan medical research tech, on 11/04/2023 at 11:55 EST. Orders: Orders UA CC w/rflx Micro + Cult Today E53.8 - Deficiency of other specified B group vitamins Complete Blood Count Auto Diff Today E53.8 - Deficiency of other specified B group vitamins Comprehensive Met. Panel Today E53.8 - Deficiency of other specified B group vitamins Vitamin B12 and Folate Today E53.8 - Deficiency of other specified B group vitamins Lipid Panel Today E78.5 - Hyperlipidemia, unspecified Coding Level of Care Code Est Pt Level 3 (70955) Diagnoses B12 deficiency E53.8
[2023-11-04 11:52] VITALS: BP 120/82; PULSE 66; O2SAT 94
== END 2023-11-04 12:12 | disposition home or self-care (01) ==
PROVIDERS: PCP Nurse Practitioner Family; Visit Provider Nurse Practitioner Family
DX: E53.8 Deficiency of other specified B group vitamins (principal)
CPT/HCPCS: 99213

== ENCOUNTER 2023-11-11 13:51 | Outpatient (AMB) | payer MEDICARE, BC, SELFPAY ==
--- NOTE | 2023-11-11 13:54 | A.OFFVIS_ITS ---
Intake Visit Reasons: abnormal findings on ctyology Intake Note: NEW Patient presents today to established treatment for Abnormal Finding on Cytology: Meds- Myrbetriq Allergies to Antibiotic- No Known Allergies Blood Thinner- Aspirin Audio Visual Project Manager Required: No Accompanied by: Self / Same As Patient Allergies adhesive tape Allergy (Severe, Verified 11/11/23 13:56) Blister from adhesive bandages and rash from plastic tape phenytoin [From Dilantin] Allergy (Severe, Verified 11/11/23 13:56) Rash sulfamethoxazole [From BACTRIM] Allergy (Unknown, Verified 11/11/23 13:56) UNKNOWN trimethoprim [From BACTRIM] Allergy (Unknown, Verified 11/11/23 13:56) UNKNOWN HPI Comments Details: 11/11/23--Wanda is here for evaluation due to microscopic hematuria and atypical cytology. She has LUTS of urinary frequency and urinary incontinence. She wears pads, she has been prescribed myrbetriq. I reviewed chart. urine cytology on 07/15/23 - noted rare atypical cells, scattered acute inflammatory cells, her PCP ordered CT imaging. CTAP - 08/25/23--Both kidneys are mildly atrophic. No renal calculi or hydronephrosis of either kidney. 1 cm cyst of the left kidney. Discussed fu office cystoscopy [facility] Medical History Cataract AVN (avascular necrosis of bone) Type 2 diabetes mellitus with diabetic polyneuropathy Hiatal hernia IBS (irritable bowel syndrome) GERD (gastroesophageal reflux disease) On beta jody at home Restrictive lung disease Obesity (BMI 30-39.9) GOPAL on CPAP Anemia B12 deficiency Vitamin D deficiency Breast pain, left Chronic kidney disease, stage 3 Decreased pedal pulses Diabetes mellitus with complication Retinopathy Celiac disease Right rotator cuff tear Osteoarthritis Seizures Gout Neuropathy Gitelman disease Essential hypertension Age-related osteoporosis without current pathological fracture Type 2 diabetes mellitus with other diabetic kidney complication Proteinuria Dyslipidemia Type 2 diabetes mellitus with chronic kidney disease Adult BMI 30.0-30.9 kg/sq m Surgical History History of esophagogastroduodenoscopy (EGD) S/P cardiac catheterization History of carpal tunnel surgery of right wrist History of back surgery Hx of colonoscopy History of total left knee replacement History of left shoulder replacement History of revision of total replacement of right hip joint Hx of fracture of fibula Family History Father No problems noted. 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) Alcohol intake: unknown Patient Tobacco Use Status: Former Tobacco user Quit Date: 1963 Tobacco use type: Cigarette Years Smoked: 1963 e-Cigarette/Vaping Use: Never Used Second Hand Smoke Exposure: Yes Advance Directives Date on File: 08/26/22 service: No Current occupational status: retired Cognitive needs: No Hearing needs: No Vision needs: Yes Review of Systems Const All systems reviewed & are unremarkable except as noted in HPI and below Reports no additional complaints Eyes Reports no additional complaints ENT Reports no additional complaints Card Reports no additional complaints Resp Reports no additional complaints GI Reports no additional complaints Reports as per HPI Musc Reports no additional complaints Skin/Breast Reports system reviewed and no additional complaints, except as documented Neuro Reports no additional complaints Psych Reports no additional complaints Endo Reports no additional complaints Hilton/Lymph Reports no additional complaints Aller/Immun Reports no additional complaints Physical Exam Const General: cooperative, healthy appearing and no acute distress Orientation/consciousness: patient oriented x3 HEENT Head: Yes normal to inspection, Yes normocephalic and Yes atraumatic Eyes Conjunctivae: conjunctivae normal Neck Neck: Yes normal visual inspection and Yes trachea midline Chest Chest palpation & inspection: normal inspection of the chest Resp Effort & Inspection: normal respiratory effort Cardio Rate: regular rate GI Inspection: Yes normal to inspection Skin General skin exam: no rashes or lesions noted Neuro General: patient oriented x3 Psych Appearance: grossly normal Results Reviewed Results Reviewed: Date of Service: 08/25/23 CT ABDOMEN AND PELVIS WITHOUT CONTRAST CLINICAL INFORMATION: Hematuria COMPARISON: Abdominal ultrasound 05/26/2022 TECHNIQUE: Multidetector volumetric imaging was performed from the superior aspect of the liver through the pubic symphysis. Sagittal and coronal reformatted images were obtained on the technologist's workstation. This CT examination was performed using dose optimization techniques as appropriate, variously including the following: *Automated exposure control *Adjustment of mA and/or kV according to patient size (this includes techniques or standardized protocols for targeted exams where dose is matched to indication/reason for exam; i.e. extremities or head) *Use of iterative reconstruction technique DLP: 717 mGy-cm FINDINGS: Visualized lung bases demonstrate emphysematous changes. There is dependent atelectasis bilaterally. The liver is normal in size but demonstrates diffusely decreased attenuation. 1 cm left hepatic cyst. A few small calcifications are scattered throughout the liver. The gallbladder is normal in appearance. The pancreas, spleen and adrenal glands are unremarkable. Small posterior splenule. Both kidneys are mildly atrophic. No renal calculi or hydronephrosis of either kidney. 1 cm cyst of the left kidney. A large hiatal hernia is only partially visualized. Normal caliber loops of small and large bowel. Mild colonic diverticulosis without CT evidence to suggest active diverticulitis. Normal appendix. Normal caliber abdominal aorta demonstrating moderate to severe atherosclerotic disease. No retroperitoneal lymphadenopathy. Evaluation of pelvis is limited secondary to streak artifact from right hip prosthesis. The bladder is unremarkable. There is some coarse calcifications of the peripheral urethra. The uterus is surgically absent. There is a moderate right-sided inguinal hernia containing fat. No gross free pelvic fluid identified. Diffuse osteopenia. Partially visualized right hip prosthesis. There are degenerative and postsurgical changes of the spine. Mild compression deformities of the T10, T11, L3 and L4 vertebral bodies appear chronic in nature. IMPRESSION: 1. No renal calculi or hydronephrosis of either kidney. 2. Diffusely decreased liver attenuation suggesting hepatic steatosis. Correlation with liver enzymes recommended. 3. Mild colonic diverticulosis without CT evidence to suggest active diverticulitis. 4. Large hiatal hernia. Collected: 07/15/23 Location: [facility] Received: 07/16/23 Diagnosis Urine: Rare atypical urothelial cells. COMMENT: Examination of a monolayer preparation slide shows benign urothelial cells, benign squamous cells, and rare hyperchromatic atypical urothelial cells with increased nuclear:cytoplasmic ratios. There are scattered acute inflammatory cells and few red blood cells noted. Clinical History Hematuria. Chronic kidney disease. Material Received Urine Gross Description 11 ml of yellow fluid received. Collected: 07/15/23-1430 Status: COMP q#: [id number] Received: 07/15/23-161 Source: [facility] Sp Desc: Subm Dr: Mitul Garcia STEMMING MACHINE OPERATOR- Ordered: Urine Culture Procedure Result Verified Urine Culture Final 07/17/23-1108 Report Result 50,000 to 100,000 cfu/ml Mixed bacterial yanet characteristic of urogenital contamination. Assessment & Plan Assessment & Plan (1) Microscopic hematuria: Code(s): R31.29 - Other microscopic hematuria Category: Medical (2) Abnormal urine cytology: Code(s): R82.89 - Other abnormal findings on cytological and histological examination of urine Category: Medical (3) Urinary frequency: Code(s): R35.0 - Frequency of micturition Category: Medical (4) Urinary incontinence: Code(s): R32 - Unspecified urinary incontinence Category: Medical Plan office cystoscopy in 6 weeks Medications: New cranberry administer with meals 400 mg PO BID 60 caps 5RF Patient Instructions: The patient had an opportunity to ask questions regarding treatment plan. The patient expressed understanding and agreement with the above treatment plan. The patient is aware they should contact our office by phone for worsening of their current condition or the appearance of new symptoms. Compliance is encouraged with any medications and followup testing that is ordered. It is a privilege to be allowed the opportunity to participate in the urologic care of your patient. If you have any questions or concerns regarding treatment for the above conditions please do not hesitate to contact me. The office telephone contact is [phone]. This note is constructed in part using voice recognition software. While every effort has been made to ensure accuracy apprenticeship representative errors may have been included. Yours sincerely, Allyson Martínez MD Coding Level of Care Code New Pt Level 4 (05253) Diagnoses Microscopic hematuria R31.29 Abnormal urine cytology R82.89 Urinary frequency R35.0 Urinary incontinence R32
== END 2023-11-11 14:46 | disposition home or self-care (01) ==
PROVIDERS: PCP Nurse Practitioner Family; Visit Provider Urology
DX: R31.29 Other microscopic hematuria (principal); R82.89 Other abnormal findings on cytological and histological examination of urine; R35.0 Frequency of micturition; R32 Unspecified urinary incontinence
CPT/HCPCS: 99204

== ENCOUNTER → 2023-11-11 13:51 | Outpatient (BNVA) | payer MEDICARE, BC, SELFPAY | PROVIDERS: PCP Nurse Practitioner Family; Visit Provider Urology | DX: R31.29 Other microscopic hematuria (principal); R32 Unspecified urinary incontinence; R35.0 Frequency of micturition; Z79.899 Other long term (current) drug therapy | CPT/HCPCS: 99202 ==

== ENCOUNTER 2023-12-04 14:13 | Outpatient (AMB) | payer MEDICARE, BC, SELFPAY ==
--- NOTE | 2023-12-04 14:58 | A.OFFVIS_ITS ---
Intake Visit Reasons: cysto Intake Note: Patient presents today for a CYSTOSCOPY Procedure: Meds- Myrbetriq Allergies to Antibiotic- No Known Allergies Blood Thinner- Aspirin Urinalysis test clear for Cysto? Unable rto void Disposable Uro-G HD Cystoscope Cannula: Lot: [id number] Exp: 07/21/2026 Television Service Engineer Required: No Nozzle Cement Sprayer Helper: Nozzle Cement Sprayer Helper Present Accompanied by: Self / Same As Patient Allergies adhesive tape Allergy (Severe, Verified 12/29/23 15:05) Blister from adhesive bandages and rash from plastic tape phenytoin [From Dilantin] Allergy (Severe, Verified 12/29/23 15:05) Rash sulfamethoxazole [From BACTRIM] Allergy (Unknown, Verified 12/29/23 15:05) UNKNOWN trimethoprim [From BACTRIM] Allergy (Unknown, Verified 12/29/23 15:05) UNKNOWN HPI Comments Details: Wanda is a pleasant female. She is seen by Dr. Rosado. 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 [facility] Medical History Cataract AVN (avascular necrosis of bone) Type 2 diabetes mellitus with diabetic polyneuropathy Hiatal hernia IBS (irritable bowel syndrome) GERD (gastroesophageal reflux disease) On beta jody at home Restrictive lung disease Obesity (BMI 30-39.9) GOPAL on CPAP Anemia B12 deficiency Vitamin D deficiency Breast pain, left Chronic kidney disease, stage 3 Decreased pedal pulses Diabetes mellitus with complication Retinopathy Celiac disease Right rotator cuff tear Osteoarthritis Seizures Gout Neuropathy Gitelman disease Essential hypertension Age-related osteoporosis without current pathological fracture Type 2 diabetes mellitus with other diabetic kidney complication Proteinuria Dyslipidemia Type 2 diabetes mellitus with chronic kidney disease Adult BMI 30.0-30.9 kg/sq m Surgical History History of esophagogastroduodenoscopy (EGD) S/P cardiac catheterization History of carpal tunnel surgery of right wrist History of back surgery Hx of colonoscopy History of total left knee replacement History of left shoulder replacement History of revision of total replacement of right hip joint Hx of fracture of fibula Family History Father No problems noted. 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) Alcohol intake: unknown Patient Tobacco Use Status: Former Tobacco user Tobacco use type: Cigarette Years Smoked: 1963 e-Cigarette/Vaping Use: Never Used Second Hand Smoke Exposure: Yes Advance Directives Date on File: 08/26/22 service: No Current occupational status: retired Cognitive needs: No Hearing needs: No Vision needs: Yes Review of Systems Const Denies chills and Denies fever(s) Card Reports no additional complaints and Denies syncope Resp Denies cough GI Denies abdominal pain and Denies heartburn Reports as per HPI and Denies change in libido Neuro Denies syncope Psych Denies change in libido Endo Denies change in libido Physical Exam Const General: cooperative, healthy appearing, comfortable and no acute distress Orientation/consciousness: patient oriented x3 HEENT Face and sinus: Yes normal facial exam Mouth: moist mucous membranes Neck Neck: Yes normal visual inspection, Yes full ROM and Yes trachea midline Chest Chest palpation & inspection: normal inspection of the chest Resp Effort & Inspection: normal respiratory effort, able to speak in complete sentences and no respiratory distress GI Inspection: Yes normal to inspection Back/Spine/Pelvis Cervical Spine: normal cervical lordosis Thoracic/Lumbar Spine: thoracic and lumbar spine normal to inspection Skin General skin exam: no rashes or lesions noted Neuro General: patient oriented x3, gait normal, tone normal and moves all extremities Extrem General: Yes normal to inspection and Yes capillary refill normal Office Procedures Cystoscopy Consent Discussed risk and benefit or proposed procedure with the patient. Information consent for procedure given to the patient. Discussed technical aspects, risks, benefits and alternatives in full. Addressed all of the patient's questions and concerns regarding the procedure. The patient demonstrated knowledge and understanding. They wish to proceed with this procedure. Preparation The patient was prepped in the usual manner. A ruby rails developer was present and in the room. Genitalia was prepped with betadine solution in a sterile manner. Lidocaine Jelly 2% was placed into the urethra and 16Fr flexible Olympus cystosc ope was inserted into the meatus after adequate lubrication. Procedure Meatus normal position Urethra normal Bladder examination with retroflexion of cystoscope Bladder Orifices normal shape and position Trigone inflamed Bladder Capacity normal Trabeculations grade 2 Cellule Formation - Diverticulum Formation - Mucosal Erythema cystitis cystica Bladder Tumor - [id number] DISPOSABLE SCOPE URO-G FLEXIBLE SCOPE Procedure code (CPT) selection complete Office Meds lidocaine HCl 2 % mucosal jelly in applicator Performing Provider: Kashif Bolanos MD Performing Location: [facility] Administered by: Ishan Berry LPN on 12/04/23 14:58 Dose Route Admin Location Dispensed Lot Number Expiration Date [employer] Audiovisual Technician 10 mL intra-urethral 10 mL nitrofurantoin monohydrate/macrocrystals 100 mg capsule Performing Provider: Kashif Bolanos MD Performing Location: [facility] Administered by: Ishan Berry LPN on 12/04/23 14:58 Dose Route Admin Location Dispensed Lot Number Expiration Date [employer] Audiovisual Technician 100 mg PO 1 cap naproxen 500 mg tablet Performing Provider: Kashif Bolanos MD Performing Location: [facility] Administered by: Ishan Berry LPN on 12/04/23 14:58 Dose Route Admin Location Dispensed Lot Number Expiration Date [employer] Audiovisual Technician 500 mg PO 1 tab Assessment & Plan Assessment & Plan (1) Cystitis cystica: Code(s): N30.80 - Other cystitis without hematuria Category: Medical Plan Try vitamin-C and methenamine Orders: Orders AMB Cystoscopy 12/04/23 R82.89 - Other abnormal findings on cytological and histological examination of urine, R31.9 - Hematuria, unspecified, N39.0 - Urinary tract infection, site not specified Medications: New ascorbic acid (vitamin C) 1 g PO DAILY 90 tabs 1RF 90 days N30.80 - Other cystitis without hematuria, N39.0 - Urinary tract infection, site not specified methenamine hippurate 1 g PO DAILY 90 tabs 1RF 90 days N30.80 - Other cystitis without hematuria, N39.0 - Urinary tract infection, site not specified Patient Instructions: Imaging studies, laboratory and physical exam results were discussed and reviewed in detail. No major barriers to patient understanding were identified. An opportunity to ask questions regarding the treatment plan was provided. All questions were answered. The patient expressed understanding and agreement with the above treatment plan. The patient is aware they should contact our office by phone for worsening of their current condition or the appearance of new urologic symptoms. Compliance is encouraged with any medications and followup testing that is ordered. It is a privilege to participate in the urologic care of your patient. If you have any questions or concerns regarding treatment for the above conditions, or other urologic issues, please do not hesitate to contact me. The office telephone contact is [phone]. This note is constructed using voice recognition software. While every effort has been made to ensure accuracy head doffer errors may have been included. Yours sincerely, Dr Kashif Bolanos MD, [facility] - Urology Providers of Expert, Compassionate Care for the Genitourinary System Coding Level of Care Code Est Pt Level 4 (18794) Diagnoses Cystitis cystica N30.80 CPT Codes Cystoscopy - CPT: 43586-[id number] ([id number])
== END 2023-12-04 16:08 | disposition home or self-care (01) ==
PROVIDERS: PCP Nurse Practitioner Family; Visit Provider Urology
DX: R82.89 Other abnormal findings on cytological and histological examination of urine (principal); R31.9 Hematuria, unspecified; N39.0 Urinary tract infection, site not specified
CPT/HCPCS: 52000; 99214

== ENCOUNTER → 2023-12-04 14:13 | Outpatient (BNVA) | payer MEDICARE, BC, SELFPAY | PROVIDERS: PCP Nurse Practitioner Family; Visit Provider Urology | DX: N30.81 Other cystitis with hematuria (principal); N32.81 Overactive bladder | CPT/HCPCS: 52000; 99212 ==

== ENCOUNTER → 2023-12-23 10:45 | Outpatient (BNV) | payer MEDICARE, BC, SELFPAY | PROVIDERS: PCP Nurse Practitioner Family; Visit Provider Radiology Diagnostic Radiology | DX: Z12.31 Encounter for screening mammogram for malignant neoplasm of breast (principal) | CPT/HCPCS: 77063; 77067 ==

== ENCOUNTER 2023-12-23 10:50 | Outpatient (REF) | payer MEDICARE, BC, SELFPAY ==
--- NOTE | ~2023-12-23 | MM_ITS ---
EXAMINATION: MM SCREENING DIGITAL BREAST TOMOSYNTHESIS, BILATERAL CLINICAL INFORMATION: Screening. Asymptomatic. COMPARISON: Mammography: This study is compared with prior exams dating back to 2019. TECHNIQUE: Digital breast tomosynthesis is performed in both the craniocaudal and mediolateral oblique views along with computer-aided detection (CAD). Synthesized 2D images are generated from the tomosynthesis. FINDINGS: The breasts are almost entirely fatty (ACR BI-RADS breast composition Category a). There are no significant masses, abnormal calcifications, or other abnormalities. There are chronic, bilateral, diffuse, benign secretory calcifications. MM/MM tomosynthesis screening BI IMPRESSION: No mammographic evidence of malignancy. ASSESSMENT: BI-RADS BI-RADS 2 - Benign Findings RECOMMENDATION: Routine annual mammography screening. 1 year F/U This examination should not preclude the clinical evaluation of a suspicious palpable abnormality. This patient's information was entered into a reminder system with a target due date for their next mammogram.
== END 2023-12-23 10:51 | disposition home or self-care (01) ==
LOC: HO.MAMMO 10:50
PROVIDERS: PCP Nurse Practitioner Family; Visit Provider Nurse Practitioner Family
DX: Z12.31 Encounter for screening mammogram for malignant neoplasm of breast (principal)
CPT/HCPCS: 77063; 77067

== ENCOUNTER 2023-12-29 08:35 | Outpatient (AMB) | payer MEDICARE, BC, SELFPAY ==
--- NOTE | 2023-12-29 08:41 | A.OFFVIS_ITS ---
Intake Visit Reasons: follow up Intake Note: Patient is Present for Follow Up Urology Medication: Methenamine, Vitamin C, Myrbetriq Antibiotic Allergies: Sulfa Antibiotics Blood Thinners: Aspirin Patient states that all medications has been working well , no recent UTI symptoms. She states the Myrbetriq has done some improvement. Unable to provide a urine sample today but states no symptoms of an UTI Allergies adhesive tape Allergy (Severe, Verified 12/29/23 08:51) Blister from adhesive bandages and rash from plastic tape phenytoin [From Dilantin] Allergy (Severe, Verified 12/29/23 08:51) Rash sulfamethoxazole [From BACTRIM] Allergy (Unknown, Verified 12/29/23 08:51) UNKNOWN trimethoprim [From BACTRIM] Allergy (Unknown, Verified 12/29/23 08:51) UNKNOWN Medication List - Last Reconciled 12/29/23 by Kashif Bolanos MD [afo right foot wear daily] albuterol sulfate 90 mcg/actuation 1 puff inhalation Q6H PRN 30 days ascorbic acid (vitamin C) 1 g PO DAILY 90 days aspirin 81 mg PO DAILY blood sugar diagnostic As directed blood sugar diagnostic (Accu-Chek Guide test strips) As directed three times a day [id number]-qfmefeqrtjyid-yigm 50-325-40 mg 1 tab PO ONCE PRN 30 days calcium citrate 500 mg (2 x 250 mg calcium) PO BID cholecalciferol (vitamin D3) 50 mcg PO DAILY cranberry 400 mg PO BID 90 days [Diabetic shoes & 3 pair inserts as directed] diaper,brief,adult,disposable (Briefs, Adult-Extra Large) Overnight pull up briefs (extra absorbant), size XL, uses 3 per day diclofenac sodium 1% (Arthritis Pain (diclofenac)) 4 grams topical QID PRN dulaglutide 0.75 mg (0.5 mL) subcut QWEEK 90 days duloxetine 20 mg PO DAILY 90 days incontinence pad, liner, disp large, superabsorbant, uses 4 per day incontinence pad, liner, disp daily use lancets As directed lancets (Accu-Chek Softclix Lancets) As directed three times a day loperamide (Imodium A-D) 2 mg PO Q6H PRN 30 days magnesium L-lactate ER 336 mg PO BID mecobalamin (vitamin B12) 1,000 mcg sublingual DAILY methenamine hippurate 1 g PO DAILY 90 days metoprolol succinate ER 25 mg PO BID 90 days mirabegron ER (Myrbetriq) 50 mg PO DAILY 90 days omeprazole 40 mg PO BID paroxetine HCl 40 mg PO QAM pravastatin 20 mg PO DAILY pregabalin 100 mg PO TID 30 days spironolactone 50 mg PO BID tramadol 50 mg PO BID PRN walker front with wheels only HPI Comments Details: Wanda is a pleasant female. She is seen by Dr. Rosado. She is seen for the following urologic conditions - recurrent UTI - overactive bladder - microscopic hematuria Good response to combination therapy Has cystitis cystica on prior cystoscopy Has been maintained on methenamine, vitamin-C Overactive bladder response to Myrbetriq 50 mg daily Microscopic hematuria evaluation Imaging - 09/12 mildly atrophic kidneys, no calculi. [facility] Medical History Cataract AVN (avascular necrosis of bone) Type 2 diabetes mellitus with diabetic polyneuropathy Hiatal hernia IBS (irritable bowel syndrome) GERD (gastroesophageal reflux disease) On beta jody at home Restrictive lung disease Obesity (BMI 30-39.9) GOPAL on CPAP Anemia B12 deficiency Vitamin D deficiency Breast pain, left Chronic kidney disease, stage 3 Decreased pedal pulses Diabetes mellitus with complication Retinopathy Celiac disease Right rotator cuff tear Osteoarthritis Seizures Gout Neuropathy Gitelman disease Essential hypertension Age-related osteoporosis without current pathological fracture Type 2 diabetes mellitus with other diabetic kidney complication Proteinuria Dyslipidemia Type 2 diabetes mellitus with chronic kidney disease Adult BMI 30.0-30.9 kg/sq m Surgical History History of esophagogastroduodenoscopy (EGD) S/P cardiac catheterization History of carpal tunnel surgery of right wrist History of back surgery Hx of colonoscopy History of total left knee replacement History of left shoulder replacement History of revision of total replacement of right hip joint Hx of fracture of fibula Family History Father No problems noted. 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) Alcohol intake: unknown Patient Tobacco Use Status: Former Tobacco user Tobacco use type: Cigarette Years Smoked: 1963 e-Cigarette/Vaping Use: Never Used Second Hand Smoke Exposure: Yes Advance Directives Date on File: 08/26/22 service: No Current occupational status: retired Cognitive needs: No Hearing needs: No Vision needs: Yes Review of Systems Const Denies chills and Denies fever(s) Card Reports no additional complaints and Denies syncope Resp Denies cough GI Denies abdominal pain and Denies heartburn Reports as per HPI and Denies change in libido Neuro Denies syncope Psych Denies change in libido Endo Denies change in libido Physical Exam Const General: cooperative, healthy appearing, comfortable and no acute distress Orientation/consciousness: patient oriented x3 HEENT Face and sinus: Yes normal facial exam Mouth: moist mucous membranes Neck Neck: Yes normal visual inspection, Yes full ROM and Yes trachea midline Chest Chest palpation & inspection: normal inspection of the chest Resp Effort & Inspection: normal respiratory effort, able to speak in complete sentences and no respiratory distress GI Inspection: Yes normal to inspection Back/Spine/Pelvis Cervical Spine: normal cervical lordosis Thoracic/Lumbar Spine: thoracic and lumbar spine normal to inspection Skin General skin exam: no rashes or lesions noted Neuro General: patient oriented x3, gait normal, tone normal and moves all extremities Extrem General: Yes normal to inspection and Yes capillary refill normal Assessment & Plan Assessment & Plan (1) Urinary incontinence: Code(s): R32 - Unspecified urinary incontinence Category: Medical (2) Microscopic hematuria: Code(s): R31.29 - Other microscopic hematuria Category: Medical (3) Cystitis cystica: Code(s): N30.80 - Other cystitis without hematuria Category: Medical Plan One year Medications: Changed From cranberry administer with meals 400 mg PO BID 60 caps 5RF To cranberry administer with meals 400 mg PO BID 90 days 180 caps 3RF From mirabegron ER (Myrbetriq) 50 mg PO DAILY To mirabegron ER (Myrbetriq) 50 mg PO DAILY 90 days 90 tabs 3RF Refilled ascorbic acid (vitamin C) 1 g PO DAILY 90 days 90 tabs 3RF N30.80 - Other cystitis without hematuria, N39.0 - Urinary tract infection, site not specified methenamine hippurate 1 g PO DAILY 90 days 90 tabs 3RF N30.80 - Other cystitis without hematuria, N39.0 - Urinary tract infection, site not specified Patient Instructions: Imaging studies, laboratory and physical exam results were discussed and reviewed in detail. No major barriers to patient understanding were identified. An opportunity to ask questions regarding the treatment plan was provided. All questions were answered. The patient expressed understanding and agreement with the above treatment plan. The patient is aware they should contact our office by phone for worsening of their current condition or the appearance of new urologic symptoms. Compliance is encouraged with any medications and followup testing that is ordered. It is a privilege to participate in the urologic care of your patient. If you have any questions or concerns regarding treatment for the above conditions, or other urologic issues, please do not hesitate to contact me. The office telephone contact is [phone]. This note is constructed using voice recognition software. While every effort has been made to ensure accuracy harvest supervisor errors may have been included. Yours sincerely, Dr Kashif Bolanos MD, [facility] - Urology Providers of Expert, Compassionate Care for the Genitourinary System Coding Level of Care Code Est Pt Level 3 (82179) Diagnoses Urinary incontinence R32 Microscopic hematuria R31.29 Cystitis cystica N30.80
== END 2023-12-29 09:11 | disposition home or self-care (01) ==
PROVIDERS: PCP Nurse Practitioner Family; Visit Provider Urology
DX: R32 Unspecified urinary incontinence (principal); R31.29 Other microscopic hematuria; N30.80 Other cystitis without hematuria
CPT/HCPCS: 99213

== ENCOUNTER → 2023-12-29 08:35 | Outpatient (BNVA) | payer MEDICARE, BC, SELFPAY | PROVIDERS: PCP Nurse Practitioner Family; Visit Provider Urology | DX: J98.4 Other disorders of lung (principal); R06.02 Shortness of breath; G47.33 Obstructive sleep apnea (adult) (pediatric); E66.9 Obesity, unspecified; R31.29 Other microscopic hematuria; R32 Unspecified urinary incontinence; N30.80 Other cystitis without hematuria; Z79.82 Long term (current) use of aspirin; Z99.89 Dependence on other enabling machines and devices | CPT/HCPCS: 99212 ==

== ENCOUNTER 2023-12-29 14:27 | Outpatient (AMB) | payer MEDICARE, BC, SELFPAY ==
--- NOTE | 2023-12-29 14:39 | MHC.OFFVIS ---
Vital Signs 12/29/23 14:40 Height 5 ft 2 in BP 110/52 L Blood Pressure Location Lt brachial Position Sitting Pulse 77 Pulse Source Pulse Oximeter Pulse Oximetry (%) 93 Oxygen Delivery Method Room Air Intake Visit Reasons: COPD Intake Note: pt is here for follow up and states she is feeling a little woozy today, pt is using new cpap and doing well. some coughing and wheezing at night and a lot of phlegm, which she cannot get it out. Lan Engineer Required: No Allergies adhesive tape Allergy (Severe, Verified 12/29/23 15:05) Blister from adhesive bandages and rash from plastic tape phenytoin [From Dilantin] Allergy (Severe, Verified 12/29/23 15:05) Rash sulfamethoxazole [From BACTRIM] Allergy (Unknown, Verified 12/29/23 15:05) UNKNOWN trimethoprim [From BACTRIM] Allergy (Unknown, Verified 12/29/23 15:05) UNKNOWN Medication List - Last Reconciled 12/29/23 by Unruly Siu MD [afo right foot wear daily] albuterol sulfate 90 mcg/actuation 1 puff inhalation Q6H PRN 30 days ascorbic acid (vitamin C) 1 g PO DAILY 90 days aspirin 81 mg PO DAILY blood sugar diagnostic As directed blood sugar diagnostic (Accu-Chek Guide test strips) As directed three times a day rrzmuowxhc-zxqciswbdolit-gnpr 50-325-40 mg 1 tab PO ONCE PRN 30 days calcium citrate 500 mg (2 x 250 mg calcium) PO BID cholecalciferol (vitamin D3) 50 mcg PO DAILY cranberry 400 mg PO BID 90 days [Diabetic shoes & 3 pair inserts as directed] diaper,brief,adult,disposable (Briefs, Adult-Extra Large) Overnight pull up briefs (extra absorbant), size XL, uses 3 per day diclofenac sodium 1% (Arthritis Pain (diclofenac)) 4 grams topical QID PRN dulaglutide 0.75 mg (0.5 mL) subcut QWEEK 90 days duloxetine 20 mg PO DAILY 90 days incontinence pad, liner, disp large, superabsorbant, uses 4 per day incontinence pad, liner, disp daily use lancets As directed lancets (Accu-Chek Softclix Lancets) As directed three times a day loperamide (Imodium A-D) 2 mg PO Q6H PRN 30 days magnesium L-lactate ER 336 mg PO BID mecobalamin (vitamin B12) 1,000 mcg sublingual DAILY methenamine hippurate 1 g PO DAILY 90 days metoprolol succinate ER 25 mg PO BID 90 days mirabegron ER (Myrbetriq) 50 mg PO DAILY 90 days omeprazole 40 mg PO BID paroxetine HCl 40 mg PO QAM pravastatin 20 mg PO DAILY pregabalin 100 mg PO TID 30 days spironolactone 50 mg PO BID tramadol 50 mg PO BID PRN walker front with wheels only Do you need a note to return to daycare/school/sports/work: No HPI HPI COPD: Details: RANJAN IS 78 YEARS OLD FEMALE A LONG-TIME PATIENT WITH OBSTRUCTIVE SLEEP APNEA AND USES CPAP VERY REGULARLY. IN FACT SHE IS FULLY DEPENDENT ON THE CPAP FOR SLEEPING AT NIGHT. SHE HAS THE NEW CPAP DEVICE SINCE LAST YEAR WHICH IS WORKING FINE. THE ONLY PROBLEM SHE HAS IS , THAT SHE DOES NOT FIND THE FULLFACE MASK WITH THE RIGHT FIT. SHE IS USED TO THE OLD FASHIONED ELONGATED FULL FACE MASK AND IS WILLING TO BUY THIS EVEN ONLINE. ANYWAY SHE IS USING HER CPAP EVERY NIGHT. I TOLD HER ABOUT THE COMPLIANCE WHICH INDICATES THAT SHE HAS NOT BEEN USING REGULARLY. SHE MENTIONED THAT NO SHE IS USING REGULARLY AND CAN NOT SLEEP WITHOUT THE MASK. FAR BREATHING IS CONCERNED SHE HAS MILD DEGREE OF OBSTRUCTIVE AIRWAY DISORDER, SHE DOES GET INTERMITTENT COUGH AND SHORTNESS OF BREATH ON EXERTION. HOWEVER HER LOCOMOTION IS SLOW, AND NOT ENOUGH TO CAUSE SHORTNESS OF BREATH. SHE DOES USE ALBUTEROL HFA P.R.N. BUT NOT ON A REGULAR BASIS. [facility] Medical History Cataract AVN (avascular necrosis of bone) Type 2 diabetes mellitus with diabetic polyneuropathy Hiatal hernia IBS (irritable bowel syndrome) GERD (gastroesophageal reflux disease) On beta jody at home Restrictive lung disease Obesity (BMI 30-39.9) GOPAL on CPAP Anemia B12 deficiency Vitamin D deficiency Breast pain, left Chronic kidney disease, stage 3 Decreased pedal pulses Diabetes mellitus with complication Retinopathy Celiac disease Right rotator cuff tear Osteoarthritis Seizures Gout Neuropathy Gitelman disease Essential hypertension Age-related osteoporosis without current pathological fracture Type 2 diabetes mellitus with other diabetic kidney complication Proteinuria Dyslipidemia Type 2 diabetes mellitus with chronic kidney disease Adult BMI 30.0-30.9 kg/sq m Surgical History History of esophagogastroduodenoscopy (EGD) S/P cardiac catheterization History of carpal tunnel surgery of right wrist History of back surgery Hx of colonoscopy History of total left knee replacement History of left shoulder replacement History of revision of total replacement of right hip joint Hx of fracture of fibula Family History Father No problems noted. 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[employer]) Alcohol intake: unknown Patient Tobacco Use Status: Former Tobacco user Tobacco use type: Cigarette Years Smoked: 1963 e-Cigarette/Vaping Use: Never Used Second Hand Smoke Exposure: Yes Advance Directives Date on File: 08/26/22 service: No Current occupational status: retired Cognitive needs: No Hearing needs: No Vision needs: Yes Review of Systems Const All systems reviewed & are unremarkable except as noted in HPI and below Reports fatigue and Reports weight gain Eyes Reports no additional complaints ENT Reports no additional complaints Card Denies chest pain, Reports leg edema (MILD ) and Reports dyspnea on exertion Resp Reports as per HPI and Reports dyspnea on exertion GI Reports heartburn (CONTROLLED WITH MED) Musc Reports abnormal gait (PATIENT USING WHEELCHAIR FOR OUTDOORS), Reports back pain and Reports arthralgias Skin/Breast Reports system reviewed and no additional complaints, except as documented Neuro Reports abnormal gait (PATIENT USING WHEELCHAIR FOR OUTDOORS) Psych Reports no additional complaints Endo Reports fatigue Physical Exam Vital Signs: Last Vital Signs Pulse 77 12/29/23 14:40 BP 110/52 L 12/29/23 14:40 Pulse Ox 93 12/29/23 14:40 Oxygen Delivery Method Room Air 12/29/23 14:40 COULD NOT BE WEIGHED, SHE WAS IN THE WHEELCHAIR. Const General: comfortable, no acute distress, alert and awake Orientation/consciousness: patient oriented x3 HEENT Head: Yes normal to inspection General nose exam: No nasal polyps present and No nasal discharge present Face and sinus: Yes sinuses nontender Mouth: oropharynx normal Throat: Yes posterior oropharynx normal Eyes General: appearance normal, both eyes and all related structures Neck Neck: Yes normal visual inspection, Yes no lymphadenopathy, Yes trachea midline and Yes no JVD Thyroid: Thyroid normal Chest Chest palpation & inspection: normal inspection of the chest, normal palpation of entire chest wall and no tenderness Resp Other: PERCUSSION NOTE IS RESONANT. BREATH SOUNDS ARE SOMEWHAT DECREASED OVER THE BASILAR AREAS BUT REST OF THE LUNG HOLLEY ARE CLEAR WITHOUT ANY WHEEZES OR RHONCHI. Cardio Palpation: normal PMI Rate: regular rate Rhythm: regular rhythm Heart sounds: no gallops and no murmurs GI Palpation (GI): Soft to palpation, nontender, No hepatosplenomegaly present and no masses Auscultation: normal bowel sounds Back/Spine/Pelvis Thoracic/Lumbar Spine: thoracic and lumbar spine normal to inspection and thoraco-lumbar ROM limited Skin General skin exam: no rashes or lesions noted Neuro General: patient oriented x3, No gait normal (BEEN SHUNT IS NON AMBULATORY, AT HOME CAN WALK WITH A WALKER ) and no focal motor deficits Cranial nerves: Yes CN's II-XII intact bilaterally Extrem General: Yes normal to inspection, Yes no clubbing, cyanosis or edema and Yes no calf tenderness Psych Appearance: grossly normal Speech and movement: Normal speech and movement present Results Reviewed Results Reviewed: COMPLIANCE REPORT FOR THE LAST 30 NIGHTS SHOWS THAT SHE HAS USED ONLY 2 NIGHTS IN WHOLE MONTH. THIS DOES NOT COINCIDE WITH THE WHAT SHE IS SAYING, BUT SHE DOES PROBLEM IS THAT SHE WILL START USING IT EVERY NIGHT Assessment & Plan Assessment & Plan (1) Obesity (BMI 30-39.9): Comment: PATIENT HAS CHRONIC, GROSS OBESITY, WITH ASSOCIATED DIABETES MELLITUS. SHE HAS BEEN WATCHING HER DIET AND HAS SUCCESSFULLY LOST SOME WEIGHT. Code(s): E66.9 - Obesity, unspecified Category: Medical Plan: MADE AWARE OF HER BEING OVERWEIGHT AND ITS RELATIONSHIP TO SLEEP APNEA WELL CAUSING MORE SHORTNESS OF BREATH. UNFORTUNATELY SHE IS USING MOSTLY THE WALKER OR WHEELCHAIR AND NOT ABLE TO DO MUCH EXERCISE. (2) Restrictive lung disease: Comment: HER PREVIOUS PULMONARY FUNCTION TESTING HAS SHOWN THAT SHE DOES NOT HAVE ANY OBSTRUCTIVE AIRWAY DISORDER. SHE DOES HAVE RESTRICTIVE LUNG DISEASE MAINLY DUE TO GROSS OBESITY. SHE DOES HAVE DIFFICULTY IN EXPECTORATING THE MUCUS SOMETIMES, AND MAY BE DUE TO BASILAR HYPOVENTILATION. Code(s): J98.4 - Other disorders of lung Category: Medical Plan: SHE CAN USE ALBUTEROL HFA 2 PUFFS Q 4-6 HOURS P.R.N. IF THERE IS ANY WHEEZING OR TIGHT FEELING IN THE CHEST. (3) GOPAL on CPAP: Comment: SHE IS A CONFIRMED CASE OF SEVERE OBSTRUCTIVE SLEEP APNEA PER STUDY IN 2018. SHE HAS BEEN TREATED VERY WELL WITH THE USE OF CPAP, FULLFACE MASK OF SMALL SIZE AND PRESSURE. OF 15 CM. SHE LOVES HER CPAP AND IN FACT WITHOUT IT CAN NOT SLEEP. HER CPAP DEVICE WAS ALMOST 6 YEARS OLD ,SHE HAS REPLACED IT WITH A NEW CPAP DEVICE. SHE HAS DIFFICULTY IN USING THE FULLFACE MASK (DREAMWEAR THAT WAS PROVIDED TO HER. SHE HAS LOOKING FOR THE OLD STYLE OF FULLFACE MASK TO GO OVER HER NOSE. I HAVE GIVEN HER A SAMPLE OF FULLFACE MASK FROM THE OFFICE . Code(s): G47.33 - Obstructive sleep apnea (adult) (pediatric); Z99.89 - Dependence on other enabling machines and devices Category: Medical Plan: ADVISED HER TO USE CPAP EVERY NIGHT, REGULARLY. (4) SOB (shortness of breath): Comment: MOST LIKELY DUE TO COMBINATION OF , GENERAL DECONDITIONING , AND RESTRICTIVE PULMONARY DISORDER. Code(s): R06.02 - Shortness of breath Category: Medical Plan: ADVISED TO DO DEEP BREATHING EXERCISES. ALSO MAY USE ALBUTEROL HFA 2 PUFFS Q 6 HOURS P.R.N.. Medications: Changed From albuterol sulfate 90 mcg/actuation 1 puff inhalation Q6H 30 days PRN 8.5 grams 4RF bronchospasm To albuterol sulfate 90 mcg/actuation 2 puffs inhalation Q6H 30 days PRN 8.5 grams 4RF bronchospasm/ sob Coding Level of Care Code Est Pt Level 3 (05583) Diagnoses Obesity (BMI 30-39.9) E66.9 Restrictive lung disease J98.4 GOPAL on CPAP G47.33; Z99.89 SOB (shortness of breath) R06.02
[2023-12-29 14:40] VITALS: BP 110/52; PULSE 77; O2SAT 93
== END 2023-12-29 15:03 | disposition home or self-care (01) ==
PROVIDERS: PCP Nurse Practitioner Family; Visit Provider Internal Medicine
DX: E66.9 Obesity, unspecified (principal); J98.4 Other disorders of lung; G47.33 Obstructive sleep apnea (adult) (pediatric); Z99.89 Dependence on other enabling machines and devices; R06.02 Shortness of breath
CPT/HCPCS: 99213

== ENCOUNTER 2024-01-05 15:01 | Outpatient (REF) | payer MEDICARE, BC, SELFPAY ==
[2024-01-05 15:55] LABS: MANUAL DIFF FLAG NO
[2024-01-05 16:12] LABS: Basophils Percent Auto 0.4 % (0-2); Eosinophils Absolute Auto 0.1 X10*3/uL (0.0-0.4); Eosinophils Percent Auto 1.3 % (0-4); Hematocrit 32.3 % (37.0-47.0); Hemoglobin 11.3 g/dl (12.0-16.0); Imm Gran Abs Auto 0.11 X10*3/uL (0.00-0.03); Lymphocytes Absolute Auto 1.1 X10*3/uL (1.2-4.9); Lymphocytes Percent Auto 10.1 % (20-40); Mean Corpuscular Hemoglobin 29.2 pg (27.0-33.0); Mean Corpuscular Volume 83.5 fL (80.0-98.0); Mean Platelet Volume 11.3 fL (9.4-12.3); Monocytes Absolute Auto 0.8 X10*3/uL (0.1-1.2); Monocytes Percent Auto 7.3 % (2-11); Neutrophils Absolute Auto 8.8 x10*3/uL (2.0-8.3); Neutrophils Percent Auto 79.9 % (45-73); Platelet Count 396 X10*3/uL (160-400); Red Blood Count 3.87 X10*6/uL (4.20-5.50); Red Cell Distribution Width 14.1 % (11.0-16.0)
[2024-01-05 16:46] LABS: Alanine Aminotransferase 12 U/L (0-31); Albumin Level 3.8 g/dL (3.5-5.0); Alkaline Phosphatase 63 U/L (39-117); Anion Gap 12 (12-20); Aspartate Amino Transferase 23 U/L (5-31); Bilirubin Total 0.3 mg/dL (0.0-1.0); Blood Urea Nitrogen 24 mg/dL (9-16); Calcium 10.6 mg/dL (8.4-10.2); Carbon Dioxide 30 mmol/L (22-29); Chloride 93 mmol/L (96-108); Cholesterol 136 mg/dL (<200); Estimated Glomerular Filt Rate 24; Glucose Random 98 mg/dL (60-115); HDL Cholesterol 32 mg/dL (>40); LDL Cholesterol Calculated 60 mg/dL (<100); Potassium 4.4 mmol/L (3.3-5.1); Sodium 131 mmol/L (135-145); Total Protein 7.7 g/dL (6.5-8.0); Triglycerides 224 mg/dL (<150)
[2024-01-05 16:48] LABS: Phosphorus 3.2 mg/dL (2.7-4.5); Uric Acid 6.8 mg/dL (2.4-5.7)
[2024-01-05 16:56] LABS: Vitamin D 25-OH Total 43.7 ng/mL (>30)
[2024-01-05 17:11] LABS: Folate 10.3 ng/mL (> or = 4.0); Vitamin B12 912 pg/mL (200-900)
[2024-01-06 05:31] LABS: Parathyroid Hormone Intact 8.8 pg/mL (8.7-77.1)
== END 2024-01-05 15:02 | disposition home or self-care (01) ==
LOC: HO.LAB 15:01
PROVIDERS: Absent Provider Internal Medicine Nephrology; PCP Nurse Practitioner Family; Visit Provider Nurse Practitioner Family
DX: E53.8 Deficiency of other specified B group vitamins (principal); E78.5 Hyperlipidemia, unspecified; N18.32 Chronic kidney disease, stage 3b
CPT/HCPCS: 36415; 80053; 80061; 82306; 82607; 82746; 83735; 83970; 84100; 84550; 85025

== ENCOUNTER 2024-01-19 13:43 | Outpatient (REF) | payer MEDICARE, BC, SELFPAY ==
[2024-01-19 16:28] LABS: Appearance Urine Clear; Color Urine Yellow; Glucose Urine UA Negative (Negative); Leukocyte Esterase Urine Small (1+) (Negative); Nitrite Urine Negative (Negative); PH 7.5 (5.0-9.0); UMIC TRIGGER UACC YES; Urine Blood Negative (Negative); Urine Ketones Negative (Negative); Urine Protein Negative (Neg-Trace)
[2024-01-19 16:36] LABS: Bacteria Urine None Seen (None Seen); Hyaline Casts Urine 0-2 /LPF (0-2); RBC Urine 0-2 /HPF (0-2); Squamous Epithelial Cell Urine 0-2 /HPF (0-2); UACC Culture Trigger YES
== END 2024-01-19 13:44 | disposition home or self-care (01) ==
LOC: HO.HMGCLNP 13:43
PROVIDERS: PCP Nurse Practitioner Family; Visit Provider Nurse Practitioner Family
DX: D72.829 Elevated white blood cell count, unspecified (principal)
CPT/HCPCS: 81001; 87086

== ENCOUNTER 2024-01-22 10:33 | Outpatient (REF) | payer MEDICARE, BC, SELFPAY ==
--- NOTE | ~2024-01-22 | XR_ITS ---
EXAMINATION: XR CHEST CLINICAL INFORMATION: Elevated white blood cells COMPARISON: 08/14/2023 TECHNIQUE: 2 views of the chest were obtained. FINDINGS: Lungs are clear without infiltrates nodules or pleural effusion. There is large hiatal hernia. Patient is status post left shoulder arthroplasty. XR/XR chest 2V IMPRESSION: Large hiatal hernia.
[2024-01-22 13:21] LABS: MANUAL DIFF FLAG NO
[2024-01-22 13:46] LABS: Basophils Absolute Auto 0.1 X10*3/uL (0.0-0.2); Basophils Percent Auto 0.4 % (0-2); Eosinophils Absolute Auto 0.3 X10*3/uL (0.0-0.4); Eosinophils Percent Auto 1.7 % (0-4); Hematocrit 36.8 % (37.0-47.0); Hemoglobin 12.3 g/dl (12.0-16.0); Imm Gran Abs Auto 0.13 X10*3/uL (0.00-0.03); Imm Gran Pct Auto 0.8 % (0.0-0.4); Lymphocytes Absolute Auto 0.9 X10*3/uL (1.2-4.9); Lymphocytes Percent Auto 5.4 % (20-40); Mean Corpuscular HGB Conc 33.4 g/dl (31.0-35.0); Mean Corpuscular Hemoglobin 29.6 pg (27.0-33.0); Mean Corpuscular Volume 88.5 fL (80.0-98.0); Mean Platelet Volume 11.4 fL (9.4-12.3); Monocytes Absolute Auto 0.6 X10*3/uL (0.1-1.2); Monocytes Percent Auto 3.2 % (2-11); Neutrophils Absolute Auto 15.1 x10*3/uL (2.0-8.3); Neutrophils Percent Auto 88.5 % (45-73); Platelet Count 458 X10*3/uL (160-400); Red Blood Count 4.16 X10*6/uL (4.20-5.50); Red Cell Distribution Width 14.8 % (11.0-16.0)
== END 2024-01-22 10:34 | disposition home or self-care (01) ==
LOC: HO.HMGCX 10:33
PROVIDERS: PCP Nurse Practitioner Family; Visit Provider Nurse Practitioner Family
DX: D72.829 Elevated white blood cell count, unspecified (principal)
CPT/HCPCS: 36415; 71046; 85025

== ENCOUNTER 2024-02-02 14:14 | Outpatient (AMB) | payer MEDICARE, BC, SELFPAY ==
--- NOTE | 2024-02-02 14:22 | MHC.PC.OV ---
Vital Signs 02/02/24 14:25 Height 5 ft 2 in Weight 194 lb BMI 35.5 BP 118/72 Blood Pressure Location Lt brachial Position Sitting Pulse 71 Pulse Source Pulse Oximeter Pulse Oximetry (%) 97 Oxygen Delivery Method Room Air Intake Visit Reasons: 3 Month follow up per JG for DM Intake Note: Patient here for DM f/u. Allergies adhesive tape Allergy (Severe, Verified 02/02/24 17:25) Blister from adhesive bandages and rash from plastic tape phenytoin [From Dilantin] Allergy (Severe, Verified 02/02/24 17:25) Rash sulfamethoxazole [From BACTRIM] Allergy (Unknown, Verified 02/02/24 17:25) UNKNOWN trimethoprim [From BACTRIM] Allergy (Unknown, Verified 02/02/24 17:25) UNKNOWN Medication List - Last Reconciled 02/02/24 by SHARON Sweeney-BC [afo right foot wear daily] albuterol sulfate 90 mcg/actuation 2 puffs inhalation Q6H PRN 30 days ascorbic acid (vitamin C) 1 g PO DAILY 90 days aspirin 81 mg PO DAILY blood sugar diagnostic As directed blood sugar diagnostic (Accu-Chek Guide test strips) As directed three times a day vylwlksmpf-aqnvxraseccru-ffmr 50-325-40 mg 1 tab PO ONCE PRN 30 days calcium citrate 500 mg (2 x 250 mg calcium) PO BID cephalexin 500 mg PO BID 4 days cholecalciferol (vitamin D3) 50 mcg PO DAILY cranberry 400 mg PO BID 90 days [Diabetic shoes & 3 pair inserts as directed] diaper,brief,adult,disposable (Briefs, Adult-Extra Large) Overnight pull up briefs (extra absorbant), size XL, uses 3 per day diclofenac sodium 1% (Arthritis Pain (diclofenac)) 4 grams topical QID PRN diclofenac sodium 1% (Voltaren Arthritis Pain) 4 grams topical QID PRN dulaglutide 0.75 mg (0.5 mL) subcut QWEEK 90 days duloxetine 20 mg PO DAILY 90 days incontinence pad, liner, disp large, superabsorbant, uses 4 per day incontinence pad, liner, disp daily use lancets As directed lancets (Accu-Chek Softclix Lancets) As directed three times a day loperamide (Imodium A-D) 2 mg PO Q6H PRN 30 days magnesium L-lactate ER 336 mg PO BID mecobalamin (vitamin B12) 1,000 mcg sublingual DAILY methenamine hippurate 1 g PO DAILY 90 days metoprolol succinate ER 25 mg PO BID 90 days Myrbetriq ER (mirabegron) 50 mg PO DAILY 90 days NS omeprazole 40 mg PO BID paroxetine HCl 40 mg PO QAM pravastatin 20 mg PO DAILY pregabalin 100 mg PO TID 30 days spironolactone 50 mg PO BID tramadol 50 mg PO BID PRN walker front with wheels only Tobacco use date assessed: 11/04/23 Dental Screening Was dental information given to patient?: Patient declined HPI 3 Month follow up per JG for DM HPI Details diabetes: 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 Pt is on a statin. A1c was 6.6. eye exam is up to date. pt does get intermittent neuropathy, uses a wheelchair often. Pt reports checking her sugars regularly. #2 leukocytosis noted. repeat UA (frequent UTIs) and chest XR ordered. Denies any current illness, fevers, chills, sob, cp, cason, blurred vision. Pt is on cephalexin regularly for chronic UTIs PFSH Medical History Cataract AVN (avascular necrosis of bone) Type 2 diabetes mellitus with diabetic polyneuropathy Hiatal hernia IBS (irritable bowel syndrome) GERD (gastroesophageal reflux disease) On beta jody at home Restrictive lung disease Obesity (BMI 30-39.9) GOPAL on CPAP Anemia B12 deficiency Vitamin D deficiency Breast pain, left Chronic kidney disease, stage 3 Decreased pedal pulses Diabetes mellitus with complication Retinopathy Celiac disease Right rotator cuff tear Osteoarthritis Seizures Gout Neuropathy Gitelman disease Essential hypertension Age-related osteoporosis without current pathological fracture Type 2 diabetes mellitus with other diabetic kidney complication Proteinuria Dyslipidemia Type 2 diabetes mellitus with chronic kidney disease Adult BMI 30.0-30.9 kg/sq m Surgical History History of esophagogastroduodenoscopy (EGD) S/P cardiac catheterization History of carpal tunnel surgery of right wrist History of back surgery Hx of colonoscopy History of total left knee replacement History of left shoulder replacement History of revision of total replacement of right hip joint Hx of fracture of fibula Family History Father No problems noted. 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 67100 - PHQ-9 Billing: Patient declined-do not bill Source: Developed by Drs. Stephen Porter, Susi Franco, Fredi Hewitt and colleagues, with an educational salina from [employer]. Thrive Questionnaire Date Thrive assessed: 02/02/24 I am a: Patient What is your living situation today?: I choose not to answer this question Within the past 12 months, did the food you bought not last and you didn't have the money to get more?: I choose not to answer this question Within the past 12 months, did you worry whether your food would run out before you got money to buy more?: I choose not to answer this question Do you have trouble paying for medicines?: I choose not to answer this question Do you have trouble getting transportation to medical appointments?: I choose not to answer this question Do you have trouble paying your heating and electricity bill?: I choose not to answer this question Do you have trouble taking care of your child, family member or friend?: I choose not to answer this question Do you have trouble with day-to-day activities such as bathing, preparing meals, shopping, managing finances, etc.?: I choose not to answer this question Are you currently unemployed and looking for a job?: I choose not to answer this question Are you interested in more education?: I choose not to answer this question Currently or been in a relationship where the following occur: I choose not to answer THRIVE Score: 0 GUY-7 AMB Questionnaire GUY-7 Date GUY - 7 assessed: 02/02/24 Source: Developed by Drs. Stephen Porter, Susi Franco, Fredi Hewitt and colleagues, with an educational salina from [employer]. GUY-7 Assessment Billing GUY-7 Assessment Tool: pt declined-do not bill Physical exam (Primary Care) Vital Signs: Last Vital Signs Pulse 71 02/02/24 14:25 BP 118/72 02/02/24 14:25 Pulse Ox 97 02/02/24 14:25 Oxygen Delivery Method Room Air 02/02/24 14:25 BMI result Body Mass Index 35.5 Tobacco/Smoking Status: Tobacco use Status Tobacco use date assessed 11/04/23 02/02/24 14:23 Patient Tobacco Use Status Former Tobacco user 02/02/24 14:23 Tobacco use type Cigarette 02/02/24 14:23 e-Cigarette/Vaping Use Never Used 02/02/24 14:23 Thrive Assessment: Date of Thrive Assessment Date Thrive assessed 02/02/24 02/02/24 16:23 Currently or been in a relationship where the following occur: I choose not to answer Const Other: in wheelchair General: cooperative, healthy appearing, comfortable and no acute distress Neck Neck: No lymphadenopathy Resp Other: faint crackles noted to bilat bases Cardio Rate: regular rate Rhythm: regular rhythm Heart sounds: S1 normal heart sound present and S2 normal heart sound present Skin Other: left 4th toe, dorsal aspect with small scab. blueish hew to second toe. minimal sensation to left plantar aspect. + sensation to right foot with use of monofilament. Extrem Right lower extremity: edema (trace) Left lower extremity: edema (trace) Results AMB Hemoglobin A1c AMB Hemoglobin A1c 6.6 % Last Edit by ANN Maguire on 02/02/24 14:51 Results Reviewed Results Reviewed: Laboratory Last Values Hgb A1c (Clinic) 6.6 % (4.0-6.0) H 02/02/24 14:50 Assessment and Plan Assessment & Plan (1) Respiratory crackles at both lung bases: Code(s): R09.89 - Other specified symptoms and signs involving the circulatory and respiratory systems Plan: chest XR ordered (2) Urinary frequency: Code(s): R35.0 - Frequency of micturition Plan: on antibiotic, recheck UA and culture (3) Type 2 diabetes mellitus with chronic kidney disease: Code(s): E11.22 - Type 2 diabetes mellitus with diabetic chronic kidney disease Plan: controlled currently (4) Leukocytosis: Code(s): D72.829 - Elevated white blood cell count, unspecified Plan: repeat cbc, UA, ordered a chest XR. pt denies any acute illness. Orders: Orders AMB Hemoglobin A1c Today E11.9 - Type 2 diabetes mellitus without complications Urine Culture Today R35.0 - Frequency of micturition XR chest 2V Today R09.89 - Other specified symptoms and signs involving the circulatory and respiratory systems Complete Blood Count Auto Diff Today R09.89 - Other specified symptoms and signs involving the circulatory and respiratory systems, R35.0 - Frequency of micturition UA CC w/rflx Micro + Cult Today R35.0 - Frequency of micturition Medications: New diclofenac sodium 1% (Voltaren Arthritis Pain) apply to single knee, ankle, foot; for foot includes sole/toes/top of foot 4 grams topical QID PRN 100 grams 0RF pain Coding Level of Care Code Est Pt Level 3 (69876) Diagnoses Respiratory crackles at both lung bases R09.89 Urinary frequency R35.0 Type 2 diabetes mellitus with chronic kidney disease E11.22 Leukocytosis D72.829
[2024-02-02 14:25] VITALS: BP 118/72; PULSE 71; O2SAT 97; BMI 35.5
== END 2024-02-02 15:08 | disposition home or self-care (01) ==
PROVIDERS: PCP Nurse Practitioner Family; Visit Provider Nurse Practitioner Family
DX: R09.89 Other specified symptoms and signs involving the circulatory and respiratory systems (principal); R35.0 Frequency of micturition; E11.22 Type 2 diabetes mellitus with diabetic chronic kidney disease; N18.30 Chronic kidney disease, stage 3 unspecified; D72.829 Elevated white blood cell count, unspecified
CPT/HCPCS: 83036; 99213

== ENCOUNTER 2024-02-12 14:30 | Outpatient (REF) | payer MEDICARE, BC, SELFPAY ==
[2024-02-12 16:08] LABS: Appearance Urine Clear; Color Urine Yellow; Glucose Urine UA Negative (Negative); Leukocyte Esterase Urine Small (1+) (Negative); Nitrite Urine Negative (Negative); PH 6.5 (5.0-9.0); Specific Gravity - Urine <= 1.005 (1.005-1.025); UMIC TRIGGER UACC YES; Urine Blood Negative (Negative); Urine Ketones Negative (Negative); Urine Protein Negative (Neg-Trace)
[2024-02-12 16:31] LABS: Bacteria Urine None Seen (None Seen); Hyaline Casts Urine 0-2 /LPF (0-2); RBC Urine 0-2 /HPF (0-2); UACC Culture Trigger YES; WBC Urine 0-5 /HPF (0-5)
== END 2024-02-12 14:31 | disposition home or self-care (01) ==
LOC: HO.HMGCLNP 14:30
PROVIDERS: PCP Nurse Practitioner Family; Visit Provider Nurse Practitioner Family
DX: R35.0 Frequency of micturition (principal)
CPT/HCPCS: 81001; 81003; 87086

== ENCOUNTER 2024-02-16 10:36 | Outpatient (REF) | payer MEDICARE, BC, OTHER, SELFPAY ==
--- NOTE | ~2024-02-16 | XR_ITS ---
EXAMINATION: XR CHEST CLINICAL INFORMATION: Circulatory system. COMPARISON: January 22, 2024 TECHNIQUE: 2 views of the chest were obtained. FINDINGS: Redemonstration of advanced degenerative changes in the thoracic spine with severe kyphosis centered at the lower thoracic spine. Redemonstration of marked compression deformities of lower thoracic vertebral bodies. Redemonstration of large left air-fluid level characteristic of previously identified large hiatal hernia, better characterized on CT abdomen and pelvis of 08/25/2023. Persistent bibasilar opacities and small bilateral pleural effusions, left greater than right. Lung volumes are low. There is no gross pneumothorax. Stable cardiomediastinal silhouette. Redemonstration of left shoulder prosthesis and severe degenerative changes right shoulder. XR/XR chest 2V IMPRESSION: 1. Persistent bibasilar opacities, left greater than right, characteristic of atelectasis, although an infectious/inflammatory process should also be considered in the appropriate clinical setting. 2. Similar small bilateral pleural effusions, left greater than right. This study was presented today February 16, 2024 for interpretation. Stat results provided at this time as requested by referring provider.
[2024-02-16 13:33] LABS: MANUAL DIFF FLAG NO
[2024-02-16 13:37] LABS: Appearance Urine Clear; Color Urine Yellow; Glucose Urine UA Negative (Negative); Leukocyte Esterase Urine Negative (Negative); Nitrite Urine Negative (Negative); PH 6.5 (5.0-9.0); Specific Gravity - Urine <= 1.005 (1.005-1.025); Urine Blood Negative (Negative); Urine Ketones Negative (Negative); Urine Protein Negative (Neg-Trace)
[2024-02-16 14:10] LABS: Basophils Absolute Auto 0.1 X10*3/uL (0.0-0.2); Basophils Percent Auto 0.6 % (0-2); Eosinophils Absolute Auto 0.4 X10*3/uL (0.0-0.4); Eosinophils Percent Auto 3.4 % (0-4); Hematocrit 31.9 % (37.0-47.0); Hemoglobin 10.6 g/dl (12.0-16.0); Imm Gran Abs Auto 0.16 X10*3/uL (0.00-0.03); Imm Gran Pct Auto 1.5 % (0.0-0.4); Lymphocytes Absolute Auto 1.4 X10*3/uL (1.2-4.9); Mean Corpuscular HGB Conc 33.2 g/dl (31.0-35.0); Mean Corpuscular Hemoglobin 29.4 pg (27.0-33.0); Mean Corpuscular Volume 88.6 fL (80.0-98.0); Mean Platelet Volume 11.4 fL (9.4-12.3); Monocytes Absolute Auto 0.6 X10*3/uL (0.1-1.2); Monocytes Percent Auto 5.2 % (2-11); Neutrophils Absolute Auto 8.2 x10*3/uL (2.0-8.3); Neutrophils Percent Auto 76.3 % (45-73); Platelet Count 468 X10*3/uL (160-400); White Blood Count 10.8 X10*3/uL (4.8-10.8)
== END 2024-02-16 10:37 | disposition home or self-care (01) ==
LOC: HO.HMGCX 10:36
PROVIDERS: PCP Nurse Practitioner Family; Visit Provider Nurse Practitioner Family
DX: R35.0 Frequency of micturition (principal); R09.89 Other specified symptoms and signs involving the circulatory and respiratory systems
CPT/HCPCS: 36415; 71046; 81003; 85025

== ENCOUNTER 2024-02-25 13:29 | Outpatient (AMB) | payer MEDICARE, BC, OTHER, MEDICAID, SELFPAY ==
[2024-02-25 13:31] VITALS: BP 108/62; PULSE 65
--- NOTE | 2024-02-25 13:31 | A.OFFVIS_ITS ---
Vital Signs 02/25/24 13:31 Height 5 ft 2 in BP 108/62 Blood Pressure Location Lt brachial Position Sitting Pulse 65 Pulse Source Pulse Oximeter Intake Visit Reasons: 6 mth f/up [employer] Secretary Required: No Allergies adhesive tape Allergy (Severe, Verified 02/25/24 13:34) Blister from adhesive bandages and rash from plastic tape phenytoin [From Dilantin] Allergy (Severe, Verified 02/25/24 13:34) Rash sulfamethoxazole [From BACTRIM] Allergy (Unknown, Verified 02/25/24 13:34) UNKNOWN trimethoprim [From BACTRIM] Allergy (Unknown, Verified 02/25/24 13:34) UNKNOWN Medication List - Last Reconciled 02/25/24 by ERICA Shay [afo right foot wear daily] albuterol sulfate 90 mcg/actuation 2 puffs inhalation Q6H PRN 30 days ascorbic acid (vitamin C) 1 g PO DAILY 90 days aspirin 81 mg PO DAILY azithromycin For 250 mg dose pack: take 500 mg today (day 1), then 250 mg for 4 days (days 2-5) PO blood sugar diagnostic As directed blood sugar diagnostic (Accu-Chek Guide test strips) As directed three times a day qcttjosheo-xlmhclaoyjmlm-mjaj 50-325-40 mg 1 tab PO ONCE PRN 30 days calcium citrate 500 mg (2 x 250 mg calcium) PO BID cholecalciferol (vitamin D3) 50 mcg PO DAILY cranberry 400 mg PO BID 90 days [Diabetic shoes & 3 pair inserts as directed] diaper,brief,adult,disposable (Briefs, Adult-Extra Large) Overnight pull up briefs (extra absorbant), size XL, uses 3 per day diclofenac sodium 1% (Arthritis Pain (diclofenac)) 4 grams topical QID PRN diclofenac sodium 1% (Voltaren Arthritis Pain) 4 grams topical QID PRN diphenoxylate-atropine 2.5-0.025 mg 1 tab PO QID doxycycline hyclate 100 mg PO BID 10 days dulaglutide 0.75 mg (0.5 mL) subcut QWEEK 90 days duloxetine 20 mg PO DAILY 90 days fluconazole 150 mg PO Q3D 3 doses incontinence pad, liner, disp large, superabsorbant, uses 4 per day incontinence pad, liner, disp daily use lancets As directed lancets (Accu-Chek Softclix Lancets) As directed three times a day loperamide (Imodium A-D) 2 mg PO Q6H PRN 30 days magnesium L-lactate ER 336 mg PO BID mecobalamin (vitamin B12) 1,000 mcg sublingual DAILY methenamine hippurate 1 g PO DAILY 90 days metoprolol succinate ER 25 mg PO BID 90 days Myrbetriq ER (mirabegron) 50 mg PO DAILY 90 days NS omeprazole 40 mg PO BID paroxetine HCl 40 mg PO QAM pravastatin 20 mg PO DAILY pregabalin 100 mg PO TID 30 days spironolactone 50 mg PO BID tramadol 50 mg PO BID PRN walker front with wheels only HPI HPI 6 mth f/up: Details: Wanda is a 78-year-old female past medical history hypertension, hyperlipidemia, diabetes, chronic kidney disease, obstructive sleep apnea with CPAP use, obesity, Gitelmans syndrome with chronically low magnesium who was admitted to [facility] in July 2022 with UTI, pneumonia, sepsis and found to have elevated troponins and abnormal echocardiogram with apical akinesis.? She was treated for NSTEMI and put on appropriate med management. As repeat echocardiogram done as outpatient showed normalization of wall motion. She underwent cardiac stress test which was abnormal and led to cardiac catheterization showing normal coronary arteries. She was then confirmed to have had takotsubo cardiomyopathy. Today she reports she has been doing very well since her last visit in August. She does have some shortness of breath with exertion which is not new. She does not feel this symptom is worsening over time. She denies any chest discomfort at rest or with activity. No heart palpitations, lightheadedness, presyncope, syncope, PND, orthopnea or edema. She uses a wheelchair when she is out. She ambulates only short distances using a. No falls since last visit. Taking all meds as directed. Granddaughter is present. [facility] Medical History Cataract AVN (avascular necrosis of bone) Type 2 diabetes mellitus with diabetic polyneuropathy Hiatal hernia IBS (irritable bowel syndrome) GERD (gastroesophageal reflux disease) On beta jody at home Restrictive lung disease Obesity (BMI 30-39.9) GOPAL on CPAP Anemia B12 deficiency Vitamin D deficiency Breast pain, left Chronic kidney disease, stage 3 Decreased pedal pulses Diabetes mellitus with complication Retinopathy Celiac disease Right rotator cuff tear Osteoarthritis Seizures Gout Neuropathy Gitelman disease Essential hypertension Age-related osteoporosis without current pathological fracture Type 2 diabetes mellitus with other diabetic kidney complication Proteinuria Dyslipidemia Type 2 diabetes mellitus with chronic kidney disease Adult BMI 30.0-30.9 kg/sq m Surgical History History of esophagogastroduodenoscopy (EGD) S/P cardiac catheterization History of carpal tunnel surgery of right wrist History of back surgery Hx of colonoscopy History of total left knee replacement History of left shoulder replacement History of revision of total replacement of right hip joint Hx of fracture of fibula Family History Father No problems noted. 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) Alcohol intake: unknown Patient Tobacco Use Status: Former Tobacco user Tobacco use type: Cigarette Years Smoked: 1963 e-Cigarette/Vaping Use: Never Used Second Hand Smoke Exposure: Yes Advance Directives Date on File: 08/26/22 service: No Current occupational status: retired Cognitive needs: No Hearing needs: No Vision needs: Yes Review of Systems Const All systems reviewed & are unremarkable except as noted in HPI and below ENT Denies dizziness Card Denies chest pain, Denies chest pain at rest, Denies chest pain with activity, Denies rapid heart rate, Denies pedal edema, Denies edema, Denies leg edema, Denies lightheadedness, Denies palpitations, Denies dyspnea, Denies dyspnea on exertion and Denies orthopnea Resp Denies cough, Denies dyspnea and Denies dyspnea on exertion GI Denies hematochezia and Denies change in stool character Musc Details: In a wheelchair Reports abnormal gait, Denies limited range of motion, Denies muscle cramps, Denies muscle weakness, Denies numbness, Denies radiating pain into limb, Denies stiffness and Denies tingling Neuro Reports abnormal gait, Denies dizziness, Denies numbness and Denies tingling Endo Denies palpitations Physical Exam Vital Signs: Last Vital Signs Pulse 65 02/25/24 13:31 BP 108/62 02/25/24 13:31 Const Other: Obese, sitting in wheelchair General: cooperative, comfortable and no acute distress Orientation/consciousness: patient oriented x3 Neck Neck: Yes normal visual inspection Resp Effort & Inspection: normal respiratory effort Auscultation: clear to auscultation bilaterally, no rales, no rhonchi and no wheezes Cardio Jugular venous distension: no JVD Rate: regular rate Rhythm: regular rhythm Heart sounds: S1 normal heart sound present, S2 normal heart sound present, no murmurs and no rubs Neuro General: patient oriented x3 Extrem General: Yes normal to inspection, No no pedal edema and No calf tenderness Psych Appearance: grossly normal Mental Status: mental status grossly normal Speech and movement: Normal speech and movement present Assessment & Plan Assessment & Plan (1) NSTEMI (non-ST elevated myocardial infarction): Code(s): I21.4 - Non-ST elevation (NSTEMI) myocardial infarction Category: Medical Plan: [facility] admission July 2022 with UTI, pneumonia, sepsis. Troponins elevated up to 1757. Echocardiogram showed EF 55-60%, entire apex is akinetic, RV normal size and function, mild aortic stenosis. She was treated for NSTEMI with heparin drip for 48 hours. She was put on aspirin, beta-jody, and continued on statin. Ischemic workup not appropriate at that time. Thought to have Takot subo cardiomyopathy versus possible LAD territory ischemia. Echocardiogram done on 11/27/2022 showed EF 68% with no regional wall motion abnormalities. She was preop for colonoscopy and underwent cardiac stress test on 12/22/2022 showing mixed ischemia and infarct in the apical and adjacent lateral and inferior wall with mild intensity ischemia of the inferior lateral and mid inferior wall. She then underwent a cardiac catheterization on 01/27/2023 showing completely normal coronary arteries. Diagnosis of previously having takotsubo cardiomyopathy confirmed. She has done well since that time. Today she reports no concerning symptoms. She does have chronic shortness of breath with physical activity. She has no signs of decompensated heart failure on examination. Vital signs in the normal range. Will have her continue metoprolol XL for neurohormonal modulation. She is reporting easy bruising. Informed she may stop aspirin if taking it for cardiac reason. Signs and symptoms of heart failure reviewed. Cardiology follow-up in 1 year, sooner if needed. (2) Cardiomyopathy: Comment: Takotsubo cardiomyopathy 07/2022 Code(s): I42.9 - Cardiomyopathy, unspecified Category: Medical Qualifiers: Cardiomyopathy type: stress-induced Qualified Code(s): I51.81 - Takotsubo syndrome Plan: As above (3) SOB (shortness of breath): Comment: DYSPNEA ON EXERTION IS DUE TO COMBINATION OF, OBESITY, RESTRICTIVE LUNG DISEASE, ANEMIA (HB. 10 GM ) AND SOME DECONDITIONING IT IS HOLDING STABLE. Code(s): R06.02 - Shortness of breath Category: Medical Plan: As above. Multifactorial (4) Essential hypertension: Code(s): I10 - Essential (primary) hypertension Category: Medical Plan: Well controlled at present time. No med changes made (5) S/P cardiac catheterization: Comment: 01/27/2023, normal coronary arteries Code(s): Z98.890 - Other specified postprocedural states Category: Surgical Plan: As above Plan Time spent on chart review, documentation, interview assess Orders: Orders CA echo transthoracic complete Today I51.81 - Takotsubo syndrome Coding Level of Care Code Est Pt Level 3 (77404) Diagnoses NSTEMI (non-ST elevated myocardial infarction) I21.4 Stress-induced cardiomyopathy I51.81 Cardiomyopathy type: stress-induced SOB (shortness of breath) R06.02 Essential hypertension I10 S/P cardiac catheterization Z98.890 Time Spent (min) 24
== END 2024-02-25 14:03 | disposition home or self-care (01) ==
PROVIDERS: PCP Nurse Practitioner Family; Visit Provider Nurse Practitioner Family
DX: I21.4 Non-ST elevation (NSTEMI) myocardial infarction (principal); I51.81 Takotsubo syndrome; R06.02 Shortness of breath; I10 Essential (primary) hypertension; Z98.890 Other specified postprocedural states
CPT/HCPCS: 99213

== ENCOUNTER 2024-02-25 13:29 | Outpatient (REF) | payer MEDICARE, BC, OTHER, MEDICAID, SELFPAY ==
[2024-03-03 20:24] LABS: Fecal Fat Qualitative ABNORMAL (NORMAL)
[2024-03-05 00:44] LABS: Pancreatic Elastase-1 124 mcg/g
== END 2024-02-25 13:30 | disposition home or self-care (01) ==
LOC: HO.LNP 13:29
PROVIDERS: PCP Nurse Practitioner Family; Visit Provider Internal Medicine Gastroenterology
DX: R19.7 Diarrhea, unspecified (principal); I25.2 Old myocardial infarction; I42.9 Cardiomyopathy, unspecified; I51.81 Takotsubo syndrome; R06.02 Shortness of breath; I10 Essential (primary) hypertension; Z98.890 Other specified postprocedural states
CPT/HCPCS: 82656; 82705; 99212

== ENCOUNTER → 2024-03-30 10:42 | Outpatient (REF) | payer MEDICARE, BC, OTHER, MEDICAID, SELFPAY ==
--- NOTE | 2024-03-30 10:48 | CA_ITS ---
Transthoracic Echocardiogram Patient (Last, First, Middle): Wanda Blum M Gender: Female Date of : 1945 Age: 78 Procedure Date: 03/30/2024 Procedure Type: Transthoracic Echocardiogram Location: OP Height: 154.94 cm Weight: 81.65 kg BSA: 1.81 m2 Heart Rate: bpm BP: 122 / 80 mmHg Microfilmer: CHACHA Referring MD: Radha Carranza STRIKE WARFARE/MISSILE SYSTEMS OFFICER-C Exhibit Carpenter: Song Dao MD Symptoms: I51.81 - Takotsubo syndrome Study Quality: Technically Difficult ECG Rhythm: Sinus Conclusions: - 1. Technically limited study 2. Normal LV ejection fraction 55-60% with impaired relaxation filling pattern 3. Poorly visualized cardiac valves with normal cardiac valvular Doppler 4. Normal RV systolic pressure Findings Left Ventricle Normal left ventricular cavity size. The left ventricular systolic function is normal. The visually estimated ejection fraction is between 55-60%. Regional wall motion abnormalities can not be excluded due to suboptimal endocardial definition. Spectral Doppler is indicative of an impaired relaxation filling pattern. Right Ventricle The right ventricle was not well visualized. There is normal right ventricular systolic function. Atria The left atrium is normal in size. Interatrial shunt cannot be excluded. The right atrium was not well visualized. Aortic Valve The aortic valve was not well visualized. There is no aortic valve stenosis. There is no aortic valve regurgitation. Mitral Valve The mitral valve was not well visualized. There is no mitral valve regurgitation. There is no mitral valve stenosis. Pulmonic Valve The pulmonic valve was not well visualized. Tricuspid Valve Likely normal tricuspid valve structure and function. There is trace tricuspid valve regurgitation. The right ventricular systolic pressure is normal. The right ventricular systolic pressure is 16 mmHg. Normal right atrial pressure. There is no evidence of pulmonary hypertension. Great Vessels The pulmonary artery was not well visualized. There is no dilatation of the ascending aorta measuring 3.10 cm. Venous The inferior vena cava collapses greater than 50% with inspiration. Inferior vena cava flow is normal. Pericardium/Pleural The pericardium was not well visualized. Prior Study Comparison No significant change compared to prior study dated: 11/27/2022. Measurements 2D Linear Measurements Ao Root: 3.20 2.1-3.5 cm LVOT Diam: 2.10 3.0+(-)1.3 cm 2D Systolic Function EF 4C: 62.00 >55% EF 2C: 58.10 >55% EF BiP: 58.40 >55% Mitral Valve MV VTI: 0.42 MV Pk Felix: 1.18 MV Mn Felix: 0.76 MV Pk Grad: 6.00 MV Mn Grad: 3.00 MV Pk E: 0.87 MV PK A: 1.22 MV Decel Time: 216.00 E/A: 0.70 E'Lateral: 6.20 E'Medial: 5.22 E/E' Med: 16.70 E/E' Lat: 14.10 PHT: 63.00 MVA PHT: 3.49 MVA Continuity: 1.87 Decel Patrick: 4.05 Aortic Valve AoV Pk Felix: 2.17 AoV Mn Felix: 1.36 AoV VTI: 0.44 AoV Pk Grad: 19.00 Aov Mn Grad: 9.00 SHIREEN Cont.VTI: 1.81 LVOT LVOT Pk Felix: 0.97 LVOT Mn Felix: 0.71 LVOT VTI: 0.23 LVOT Pk Grad: 4.00 LVOT Mn Grad: 3.00 LVOT Diam: 2.10 LVOT Area: 3.46 Diastolic Function MV Pk E: 0.87 MV Pk A: 1.22 E/A: 0.70 E'Medial: 5.22 E/E' Med: 16.70 E' Laterial: 6.20 E/E' Lat: 14.10 Right Ventricle TAPSE (mm): 21.00 Tricuspid Valve TR Pk Felix: 1.79 TR Pk Grad: 13.00 RA Press: 3.00 RVSP: 16.00 Great Vessels Aorta Ao Root-2D: 3.20 2.0-3.7 cm Ao Asc: 3.10 2.1-3.4 cm Pulmonary Valve PV Pk Felix: 1.78 Peak PV Grad: 13.00 Updated in Other Vendor System with Status of Final Song Dao MD electronically signed on 03/30/2024 2:05:05 PM with status of Final
== END ==
LOC: HO.CARD 10:42
PROVIDERS: PCP Nurse Practitioner Family; Visit Provider Nurse Practitioner Family
DX: I51.81 Takotsubo syndrome (principal)
CPT/HCPCS: 93306

== ENCOUNTER → 2024-03-30 10:48 | Outpatient (BNV) | payer MEDICARE, BC, OTHER, MEDICAID, SELFPAY | PROVIDERS: PCP Nurse Practitioner Family; Visit Provider Internal Medicine Cardiovascular Disease | DX: I51.81 Takotsubo syndrome (principal); R93.1 Abnormal findings on diagnostic imaging of heart and coronary circulation | CPT/HCPCS: 93306 ==

== ENCOUNTER 2024-06-07 13:39 | Outpatient (AMB) | payer MEDICARE, BC, OTHER, MEDICAID, SELFPAY ==
[2024-06-07 13:47] VITALS: BP 110/72; PULSE 66; O2SAT 98; BMI 35.5
--- NOTE | 2024-06-07 13:47 | A.OFFPC_ITS ---
Vital Signs 06/07/24 13:47 Height 5 ft 2 in Weight 194 lb BMI 35.5 BP 110/72 Blood Pressure Location Lt brachial Position Sitting Pulse 66 Pulse Source Pulse Oximeter Pulse Oximetry (%) 98 Intake Visit Reasons: 4 Month follow up per JIshaan for DM - see comments Allergies adhesive tape Allergy (Severe, Verified 06/07/24 13:56) Blister from adhesive bandages and rash from plastic tape phenytoin [From Dilantin] Allergy (Severe, Verified 06/07/24 13:56) Rash sulfamethoxazole [From BACTRIM] Allergy (Unknown, Verified 06/07/24 13:56) UNKNOWN trimethoprim [From BACTRIM] Allergy (Unknown, Verified 06/07/24 13:56) UNKNOWN Medication List - Last Reconciled 06/07/24 by BENOIT Sweeney [afo right foot wear daily] albuterol sulfate 90 mcg/actuation 2 puffs inhalation Q6H PRN 30 days ascorbic acid (vitamin C) 1 g PO DAILY 90 days aspirin 81 mg PO DAILY baclofen 5 mg PO DAILY PRN 12 days blood sugar diagnostic As directed blood sugar diagnostic (Accu-Chek Guide test strips) As directed three times a day fifnukakpm-jzwoypphxpadt-dzbl 50-325-40 mg 1 tab PO ONCE PRN 30 days calcium citrate 500 mg (2 x 250 mg calcium) PO BID cefuroxime axetil 500 mg PO DAILY 5 days cholecalciferol (vitamin D3) 50 mcg PO DAILY cranberry 400 mg PO BID 90 days [Diabetic shoes & 3 pair inserts as directed] diaper,brief,adult,disposable (Briefs, Adult-Extra Large) Overnight pull up briefs (extra absorbant), size XL, uses 3 per day diclofenac sodium 1% (Voltaren Arthritis Pain) 4 grams topical QID PRN diphenoxylate-atropine 2.5-0.025 mg 1 tab PO QID dulaglutide 0.75 mg (0.5 mL) subcut QWEEK 90 days duloxetine 20 mg PO DAILY 90 days incontinence pad, liner, disp large, superabsorbant, uses 4 per day lancets (Unistik 2 Normal Lancet) Test blood sugar twice a day oadwcp-finylaqv-sqynlfo 24,000-76,000 -120,000 unit (Creon) 2 caps PO TID loperamide (Imodium A-D) 2 mg PO Q6H PRN 30 days magnesium L-lactate ER 336 mg PO BID mecobalamin (vitamin B12) 1,000 mcg sublingual DAILY methenamine hippurate 1 g PO DAILY 90 days metoprolol succinate ER 25 mg PO BID 90 days Myrbetriq ER (mirabegron) 50 mg PO DAILY 90 days NS omeprazole 40 mg PO BID paroxetine HCl 40 mg PO QAM pravastatin 20 mg PO DAILY pregabalin 100 mg PO TID 30 days spironolactone 50 mg PO BID tramadol 50 mg PO BID PRN walker front with wheels only Tobacco use date assessed: 11/04/23 Fall risk assessment: No Falls in past year Last assessed Fall Risk: 06/07/24 Dental Screening Dental Screen Date: 06/07/24 Did you have a dental visit in the last 12 months?: Yes Did you have a dental problem in the last 6 months where you did not have access to dental care?: No Was dental information given to patient?: Patient has dentist HPI 4 Month follow up per J for DM - see comments HPI Details pt is here for diabetes. A1c was 6.5 today. Pt sees a optical worker and a network developer. Pt is taking a statin. lab orders entered. Pt does have neuropathy to BLE, uses a wheelchair (weakness to BLE). Pt understands the s/s of hypoglycemia and how to correct it. eye exam is up to date according to pt [facility] Medical History Cataract AVN (avascular necrosis of bone) Type 2 diabetes mellitus with diabetic polyneuropathy Hiatal hernia IBS (irritable bowel syndrome) GERD (gastroesophageal reflux disease) On beta jody at home Restrictive lung disease Obesity (BMI 30-39.9) GOPAL on CPAP Anemia B12 deficiency Vitamin D deficiency Breast pain, left Chronic kidney disease, stage 3 Decreased pedal pulses Diabetes mellitus with complication Retinopathy Celiac disease Right rotator cuff tear Osteoarthritis Seizures Gout Neuropathy Gitelman disease Essential hypertension Age-related osteoporosis without current pathological fracture Type 2 diabetes mellitus with other diabetic kidney complication Proteinuria Dyslipidemia Type 2 diabetes mellitus with chronic kidney disease Adult BMI 30.0-30.9 kg/sq m Surgical History History of esophagogastroduodenoscopy (EGD) S/P cardiac catheterization History of carpal tunnel surgery of right wrist History of back surgery Hx of colonoscopy History of total left knee replacement History of left shoulder replacement History of revision of total replacement of right hip joint Hx of fracture of fibula Family History Father No problems noted. 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 Stephen Porter, Susi Franco, Fredi Hewitt and colleagues, with an educational salina from [employer] Physical exam (Primary Care) Vital Signs: Last Vital Signs Pulse 66 06/07/24 13:47 BP 110/72 06/07/24 13:47 Pulse Ox 98 06/07/24 13:47 BMI result Body Mass Index 35.5 Tobacco/Smoking Status: Tobacco use Status Tobacco use date assessed 11/04/23 06/07/24 13:47 Patient Tobacco Use Status Former Tobacco user 06/07/24 13:47 Tobacco use type Cigarette 06/07/24 13:47 e-Cigarette/Vaping Use Never Used 06/07/24 13:47 Thrive Assessment: Date of Thrive Assessment Date Thrive assessed 02/02/24 06/07/24 13:47 Const General: cooperative, healthy appearing, comfortable, no acute distress and well developed Resp Effort & Inspection: normal respiratory effort Auscultation: clear to auscultation bilaterally (faint crackles to bases) Cardio Rate: regular rate Rhythm: regular rhythm Heart sounds: S1 normal heart sound present and S2 normal heart sound present Extrem Other: minimal sensation to right plantar foot with monofilament. small scabbed lesion to right third toe (dorsal aspect), without signs of infection . left foot no sensation with use of monofilament, left lateral foot (mid aspect) with bandaid covered small circular abrasion, no signs of infection Right lower extremity: no edema Left lower extremity: no edema Psych Appearance: grossly normal Mental Status: mental status grossly normal Speech and movement: Normal speech and movement present Affect: normal affect Attitude: cooperative Thought content: Normal thought content present Insight: Good insight present (Psych) Judgement: Good judgement present (Psych) Results AMB Hemoglobin A1c AMB Hemoglobin A1c 6.5 % Last Edit by Anderson Sweeney CMA on 06/07/24 14: 08 Results Reviewed Results Reviewed: Laboratory Last Values Hgb A1c (Clinic) 6.5 % (4.0-6.0) H 06/07/24 14:08 Coding Level of Care Code Est Pt Level 3 (31121) Diagnoses Type 2 diabetes mellitus with chronic kidney disease . B12 deficiency E53.8 Assessment & Plan Assessment & Plan (1) Type 2 diabetes mellitus with chronic kidney disease: Code(s): E11. - Type 2 diabetes mellitus with diabetic chronic kidney disease Category: Medical Plan: currently controlled (2) B12 deficiency: Code(s): E53.8 - Deficiency of other specified B group vitamins Category: Medical Plan: will recheck levels Orders: Orders AMB Hemoglobin A1c Today Z13.9 - Encounter for screening, unspecified Comprehensive [place]osta. Panel Fast Today E11. - Type 2 diabetes mellitus with diabetic chronic kidney disease TSH reflex Free T4 Today E11. - Type 2 diabetes mellitus with diabetic chronic kidney disease Lipid Panel Today E11. - Type 2 diabetes mellitus with diabetic chronic kidney disease Microalbumin, Random (w Creat) Today E11. - Type 2 diabetes mellitus with d iabetic chronic kidney disease Complete Blood Count Auto Diff Today E11. - Type 2 diabetes mellitus with diabetic chronic kidney disease UA CC w/rflx Micro + Cult Today E11. - Type 2 diabetes mellitus with diabetic chronic kidney disease Vitamin B12 and Folate Today E53.8 - Deficiency of other specified B group vi tamins Medications: New cefuroxime axetil do not take concurrently with omeprazole 500 mg PO DAILY 5 days 5 tabs 0RF cefuroxime axetil 500 mg PO DAILY 5 days 5 tabs 0RF cefuroxime axetil do not take concurrently with omeprazole 500 mg PO DAILY 5 tabs 0RF 5 days
== END 2024-06-07 15:12 | disposition home or self-care (01) ==
PROVIDERS: PCP Nurse Practitioner Family; Visit Provider Nurse Practitioner Family
DX: E11.22 Type 2 diabetes mellitus with diabetic chronic kidney disease (principal); E53.8 Deficiency of other specified B group vitamins; Z13.9 Encounter for screening, unspecified

== ENCOUNTER → 2024-06-07 13:39 | Outpatient (BNVA) | payer MEDICARE, BC, OTHER, MEDICAID, SELFPAY | PROVIDERS: PCP Nurse Practitioner Family; Visit Provider Nurse Practitioner Family | DX: E11.22 Type 2 diabetes mellitus with diabetic chronic kidney disease (principal); N18.9 Chronic kidney disease, unspecified; E53.8 Deficiency of other specified B group vitamins | CPT/HCPCS: 83036; 99212 ==

== ENCOUNTER 2024-08-16 13:26 | Outpatient (REF) | payer MEDICARE, BC, OTHER, MEDICAID, SELFPAY ==
--- OUTSIDE RECORDS SUMMARY | 2024-08-16 14:26 | XMS_ITS | Encounter Summary ---
Author Organization [facility] Address [address] [place] [address] Phone Care Team Providers Care Rn Hospice Name Role Phone CharlesdemetriusMitul NP Primary Care Provider [phone] Reason for Visit * Reason Comments Med Refill Encounter Details Date Type Department Care Team (Late Contact Info) Description 06/24/2022 Refill [facility] [address] [place] [address] Balaji Nascimento MD [address] [place] [address] [address] [place] [place] [address] Social History Tobacco Use Types Packs/Day Years Used Date Smoking Tobacco: Former Cigarettes Q uit: 07/20/1963 Comments Unknown Sex and Gender Information Value Date Recorded Sex Assigned at Not on file Legal Sex Female 4:34 PM EST Gender Identity Not on file Sexual Orientation Not on file documented as of this encounter Plan of Treatment Upcoming Encounters Date Type Department Care Team ([facility] Contact Info) Description 10/11/2024 9:50 AM EDT Office Visit [facility] [address] [place] [address] Sarbjit Palumbo MD [address] [place] [place] [address] documented as of this encounter Visit Diagnoses Not on filedocumented in this encounter Care Teams Rn Hospice Relationship Specialty Start Date End Date Mitul Garcia NP [address] [place] [address] PCP - General 05/24/19 documented as of this encounter
--- OUTSIDE RECORDS SUMMARY | 2024-08-16 14:26 | XMS_ITS | Encounter Summary ---
Author Organization [facility] Address [address] [place] [address] Phone Care Team Providers Care Gwot Ia/Ilo Intelligence Support Name Role Phone CharlesdemetriusMitul NP Primary Care Provider [phone] Reason for Visit * Reason Comments Med Refill Encounter Details Date Type Department Care Team (Late Contact Info) Description 07/01/2022 Refill [facility] [address] [place] [address] Balaji Nascimento MD [address] [place] [address] [place] [place] [place] [address] Social History Tobacco Use Types [...] Upcoming Encounters Date Type Department Care Team (Late Contact Info) Description 10/11/2024 9:50 AM EDT Office Visit [facility] [address] [place] [address] Sarbjit Palumbo MD [address] [facility] [address] [place] [place] [address] documented as of this encounter Visit Diagnoses Not on filedocumented in this encounter Care Teams Gwot Ia/Ilo Intelligence Support Relationship Specialty Start Date End Date Mitul Garcia NP [address] [place] [address] PCP - General 05/24/19 documented as of this encounter
--- OUTSIDE RECORDS SUMMARY | 2024-08-16 14:26 | XMS_ITS | Encounter Summary ---
Author Organization [facility] Address [address] [place] [address] Phone Care Team Providers Care Raw Stock Dyeing Machine Tender Name Role Phone Mitul Garcia WOOD CARVING MACHINE OPERATOR Primary Care Provider [phone] Reason for Visit * Reason Comments Med Refill Encounter Details Date Type Department Care Team (Late Contact Info) Description 11/02/2019 Refill [facility] [address] [place] [phone] Balaji Nascimento MD [address] [place] [place] [address] Social History Tobacco Use Types [...] Upcoming Encounters Date Type Department Care Team ([facility] Contact Info) Description 10/11/2024 9:50 AM EDT Office Visit [facility], [address] [place] [address] Sarbjit Palumbo MD [address] [place] [address] documented as of this encounter Visit Diagnoses Not on filedocumented in this encounter Care Teams Raw Stock Dyeing Machine Tender Relationship Specialty Start Date End Date Mitul Garcia NP [address] [place] [address] PCP - General 05/24/19 documented as of this encounter
--- OUTSIDE RECORDS SUMMARY | 2024-08-16 14:26 | XMS_ITS | Patient Health Record ---
Author Organization [facility] Address [address] [place] [address] Care Team Providers Care Optical Glass Inspector Name Role Phone MODESTAEDUARDO LYNN Primary Care Provider Giorgio Kathleen Jr Rc Unavailable ALLERGIES Allergen (clinical drug ingredient) Drug/Non Drug Allergy documented on EMR Reaction Allergy Type Onset Date Status phenytoin Dilantin Unknown Drug Allergy Active sulfamethoxazole / trimethoprim Bactrim Unknown Drug Allergy Active plastic tape (uncoded) Unknown Allergy Active RESULTS Component Value Reference Range Notes Pancreatic Elastase-1 Reviewed date:03/17/2024 08:54:42 AM Interpretation: Performing Lab:[facility], [address] [place] [phone] Notes/Report: Pancreatic Elastase-1 124 Adult and Pediatric Reference Ranges for Pancreatic Elastase-1: Normal: >200 mcg/g Moderate Pancreatic Insufficiency: 100-200 mcg/g Severe Pancreatic Insufficiency: <100 mcg/g Elastase-1 (E-1) assay results are expressed in mcg/g, which represent mcg E1/g feces. It is not necessary to interrupt enzyme substitution therapy. THIS TEST WAS PERFORMED AT: [employer] [facility] [place] [address] [place] [address] RUSLAN GRAY MD,PHD,CELSA Fecal Fat Qualitative Reviewed date:03/17/2024 08:54:34 AM Interpretation: Performing Lab:[facility], [address] [place] [address] Notes/Report: Fecal Fat Qualitative ABNORMAL NORMAL THIS TEST WAS PERFORMED AT: [employer] [facility] [place] [address] [place] [address] RUSLAN GRAY MD,PHD,CELSA REASON FOR REFERRAL No Information MEDICATIONS Medication SIG (Take, Route, Frequency, Duration) Notes Start Date End Date Status Spironolactone 50 MG 1 tablet Orally Twi ce a day Active Calcium Citrate Acti ve PARoxetine HCl 40 MG 1 tablet in the mor maria luisa Orally Once a day Active traMADol HCl Active Pravastatin Sodium A ctive Vitamin D3 Active Colyte with Flavor Packs 240 GM As directed Orally Over the specified time. for 1 day(s) 05/13/2023 Active Diphenoxylate-Atropine 2.5-0.025 MG TAKE 1 TABLET BY MOUTH EVERY 6 HOURS NEEDED for 30 days 02/18/2024 Active Magnesium Oxide 400 MG 4-5 tablet Orally daily Active DULoxetine HCl 20 MG Oral for 16 Active Pregabalin 100 MG Oral for 90 Active Lyrica 50 MG 1 capsule Orally Thr ee times a day Active Omeprazole 20 MG 1 capsule Orally Onc e a day Active Fgvcvztzba-IITP-Uvdabzvq Active Myrbetriq Active Metoprolol Succinate ER 25 MG 1 tablet Orally Once a day Active Trulicity 1.5 MG/0.5ML as directed Subcu taneous once a week Active Creon 15[address] UNIT 2 capsules with m eals and 1 capsule with snacks Orally for 30 days 03/17/2024 Active IMMUNIZATIONS Vaccine Route Administration Date Status [...] W/U Status Risk SNOMED Code Notes Problem Hypertension (I10) Active confirmed 383 11720 Problem Gastroesophageal reflux disease (K21.9) Active confirmed Gastroesophagea l reflux disease (708268713) Problem Abnormal celiac antibody panel (R89.4) Active confirmed 813479586 Problem Diarrhea, unspecified type (R19.7) Active confirmed 52212227 Problem Irritable bowel syndrome, unspecified type (K58.9) Active confirmed 87123742 Problem Exocrine pancreatic insufficiency (K86.81) Active confirmed 73925867 Problem Irritable bowel syndrome with both constipation and diarrhea (K58.2) Active confirmed 16840287 Problem Colon cancer screening declined (Z53.20) Active confirmed 41652048645431 Problem 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 398049381 Problem Gastroesophageal reflux disease, unspecified whether esophagitis present (K21.9) Active confirmed 117338751 VITAL SIGNS Blood pressure diastolic 000 mm Hg 08/11/2024 Height 63 in 08/11/2024 Blood pressure systolic 00 mm Hg 08/11/2024 Weight 192 lbs 08/11/2024 BMI 34.01 kg/m2 08/11/2024 Encounters Encounter Location Date Provider Diagnosis [facility] [address] [place] [address] 08/11/2024 Rc Kathleen Jr Gastroesophageal reflux disease K21.9 ; Exocrine pancreatic insufficiency K86.81 and Irritable bowel syndrome, unspecified type K58.9 [facility] [address] [place] [address] 02/18/2024 Rc Kathleen Jr [facility] [address] [place] [address] 02/18/2024 Rc Kathleen Jr Diarrhea, unspecified type R19.7 [facility] [address] [place] [address] 03/17/2024 Rc Kathleen Jr ASSESSMENTS Encounter Date Diagnosis Assessment Notes Treatment Notes Treatment Clinical Notes 08/11/2024 Gastroesophageal ref lux disease (ICD-10 - K21.9) 08/11/2024 Exocrine pancreatic insufficiency (ICD-10 - K86.81) Irritable bowel syndrome material was printed 02/18/2024 Diarrhea, unspecifie d type (ICD-10 - R19.7) 08/11/2024 Irritable bowel syndrome, unspecified type (ICD-10 - K58.9) PLAN OF TREATMENT Pending Test Test Name Order Date STOOL WBC 07/23/2020 OVA & PARASITES (O&P) 04/10/2022 OVA & PARASITES (O&P) 07/23/2020 PANCREATIC ELASTASE 02/18/2024 FECAL FAT QUAL 02/18/2024 CT PELVIS NO CONTRAST 04/20/2013 STOOL WBC 04/10/2022 C DIFFICILE RFLX PCR 04/10/2022 C DIFFICILE RFLX PCR 07/23/2020 Stool Culture 07/23/2020 GI PANEL 04/10/2022 Future Test Test Name Order Date UPPER GI ENDOSCOPY 06/20/2021 COLONOSCOPY 10/29/2022 Next Appt Details Provider Name:Rcjohn coronado Jr, 11/16/2024 11:00:00 AM, [address] [facility], [address], [place], [address], Insurance Providers Payer Name Payer Address Payer Phone Subscriber Number Group Number Insured Name Patient Relationship to Insured Coverage Start Date Coverage End Date MEDICARE OF [place] [address] [place] [address] [id number] PRECHTL, RANJAN Self - patient is the insured [facility] [address] [place], [place] [id number] PRECHTL, RANJAN Self - patient is the insured [employer] [address] [place] [id number] PRECHTL, RANJAN Self - patient is the [...]
--- OUTSIDE RECORDS SUMMARY | 2024-08-16 14:27 | XMS_ITS | Clinical Summary ---
Author Organization [facility], Address [address] [place] [address] [place] [address] Phone Care Team Providers Care Critical Care Registered Nurse Name Role Phone Lynn Garcia NP Primary Care Provider [phone] Allergies Active Allergy Reactions Criticality Noted Date Comments Adhesive Tape 10/27/2019 Sulfamethoxazole-Trimethoprim 2019 Latex 10/27/2019 Phenytoin 10/27/2019 Medications TRULICITY 0.75 MG/0.5ML solution pen-injector INJECT 1 PEN EVERY WEEK 6 mL 1 0 Active Dulaglutide 0.75 MG/0.5ML solution pen-injector Inject 1 pen under the skin per week Active spironolactone (ALDACTONE) 50 MG tablet Take 50 mg by mouth 2 (two) times a day Active senna (SENOKOT) 8.6 MG tablet Take 1 tablet by mouth 1 (one) time each day Active pravastatin (PRAVACHOL) 20 MG tablet Take 20 mg by mouth 1 (one) time each day Active PARoxetine (PAXIL) 40 MG tablet Take 40 mg by mouth 1 (one) time each day Active omeprazole (PriLOSEC) [address] capsule Take 40 mg by mouth 2 (two) times a day Active metoprolol succinate XL (TOPROL-XL) 25 MG 24 hr tablet Take 25 mg by mouth 2 (two) times a day Active magnesium (MAGTAB) 84 MG (7MEQ) CR tablet Take 336 mg by mouth 2 (two) times a day Active pregabalin (LYRICA) 100 MG capsule Take 100 mg by mouth 3 (three) times a day Active butalbital-acet aminophen-caffe ine (FIORICET, ESGIC) 50-325-40 MG per tablet Take 1 tablet by mouth every 6 (six) hours Active amoxicillin (AMOXIL) 500 MG capsule Take FOUR capsules one hour prior to dental procedures Active Mirabegron ER (Myrbetriq) 25 MG tablet sustained-relea se 24 hour Take 25 mg by mouth 2 (two) times a day 180 tablet 3 1 Active DULoxetine (CYMBALTA) [address] capsule TAKE 1 CAPSULE(20 MG) BY MOUTH EVERY DAY. 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 300 mg IV Once in dialysis 05/13/2023 Active Active Problems Problem Noted Date Diagnosed Date Stage 3b chronic kidney disease 02/21/2021 Anemia Type 2 diabetes mellitus Recurrent urinary tract infection Osteoporosis Osteoarthritis Hypertensive nephrosclerosis Hypermagnesemia Hyperlipidemia Hyperkalemia Gitelman syndrome Essential hypertension Encounters Date Type Department Care Team Description 08/05/2024 Orders Only [facility] [address] [place] [address] Sarbjit Palumbo MD Gitelman syndrome 07/05/2024 10:50 AM EST Office Visit [facility] [address] [place] [address] Sarbjit Palumbo MD Stage 3b chronic kidney disease (HCC) (Primary Dx) from Last 3 Months Immunizations Name Administration Dates Next Due Influenza Split High Dose Preservative Free IM 1 ,03/20/2017 Influenza, Unspecified 07/04/2018 Pneumococcal Conjugate 13-Valent 07/04/2018 Pneumococcal Polysaccharide 04/05/2014 Family History Medical History Relation Comments Coronary artery disease Father Heart disease Father coronary heart d isease Diabetes Mother Hypertension Mother Stroke Mother Relation Status Comments Father Mother Social History Tobacco Use Types Packs/Day Years Used Date Smoking Tobacco: Former Cigarettes Q uit: 07/20/1963 Comments Unknown Sex and Gender Information Value Date Recorded Sex Assigned at Not on file Legal Sex Female 4:34 PM EST Gender Identity Not on file Sexual Orientation Not on file Last Filed Vital Signs Vital Sign Reading Time Taken Comments Blood Pressure 140/70 02/06/2020 1:37 PM EDT Pulse - - Temperature - - Respiratory Rate - - Oxygen Saturation - - Inhaled Oxygen Concentration - - Weight 77.1 kg (170 lb) 03/14/2019 12:00 PM EDT Height 157.5 cm (5' 2 ) 03/14/2019 12:00 PM EDT Body Mass Index 31.09 03/14/2019 12:00 PM EDT Plan of Treatment Upcoming Encounters Date Type Department Care Team (Late st Contact Info) Description 10/11/2024 9:50 AM EDT Office Visit [facility] [address] [place] [phone] Sarbjit Palumbo MD [address] [place] [phone] Health Maintenance Due Date Last Done Comments Diabetes: Ophthalmology Exam 10/10/2019 Diabetes: Pedal Pulse Checked 10/10/2019 Diabetes: Sensory Foot Exam 10/10/2019 Diabetes: Visual Foot Exam 10/10/2019 Diabetes: Hemoglobin A1C 08/12/2023 023, 12/23/2022, 06/17/2022, Additional history exists Influenza Vaccine (#1) 2024 2, 04/23/2019, 07/04/2018, Additional history exists Pneumococcal Vaccine: 65+ Years Completed 05/19/2020, 07/04/2018, 05/19/2016, Additional history exists Hepatitis B Vaccine Aged Out No longe r eligible based on patient's age to complete this topic Procedures Procedure Name Priority Date/Time Associated Diagnosis Comments PTH, INTACT Routine 06/07/2024 4:10 PM EST MAGNESIUM Routine 06/07/2024 4:10 PM EST ALBUMIN Routine 06/07/2024 4:10 PM EST PHOSPHATE ( PHOSPHORUS) Routine 06/07/2024 4:10 PM EST URIC ACID Routine 06/07/2024 4:10 PM EST VITAMIN D 25 HYDROXY Routine 06/07/2024 4:10 PM EST BASIC METABOLIC PANEL Routine 06/07/2024 4:10 PM EST CBC Routine 06/07/2024 4:10 PM EST HEMOGLOBIN A1C Routine 05/12/2023 12:23 PM EDT Stage 3b chronic kidney disease (HCC) Gitelman syndrome Hypermagnesemia Hypertensive nephrosclerosis 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 Comment: Vitamin D deficiency has been defined by the [place] of Medicine and an Endocrine Society practice guideline as a level of serum 25-OH vitamin D less than 20 ng/mL (1,2). The Endocrine Society went on to further define vitamin D insufficiency as a level between 21 and 29 ng/mL (2). 1. IOM ([place] of Medicine). 2010. Dietary reference ?? intakes for calcium and D. [place]: The ?? National Glanse Press. 2. Enriqueta MF, Devin NC, Pricilla ROE, et al. ?? Evaluation, treatment, and prevention of vitamin D ?? deficiency: an Endocrine Society clinical practice ?? guideline. JCEM. 2011 Jan; 96(7):1911-30. 06/07/2024 4:10 PM EST 06/07/2024 Sarbjit Palumbo MD LAB BLOOD ORDERABLES Final Re sult Performing Organization Address City/[facility]/ZIP Co de Phone Number [facility] [address] [place] [address] * (ABNORMAL) CBC (06/07/2024 4:10 PM EST) WBC 18.2(H) 3.4 - 10.8 x10E3/uL [facility] Comment: Effective June 20, 2024 profile [id number] WBC will be made ??non-orderable as a stand-alone order code. RBC 3.93 3.77 - 5.28 x10E6/uL [facility] Hemoglobin 11.6 11.1 - 15.9 g/dL [facility] Hematocrit 35.5 34.0 - 46.6 % [facility] MCV 90 79 - 97 fL [facility] MCH 29.5 26.6 - 33.0 pg [facility] MCHC 32.7 31.5 - 35.7 g/dL [facility] RDW 13.1 11.7 - 15.4 % [facility] Platelets 409 150 - 450 x10E3/uL [facility] 06/07/2024 4:10 PM EST 06/07/2024 Sarbjit Palumbo MD LAB BLOOD ORDERABLES Final Re sult Performing Organization Address City/[facility]/ZIP Co de Phone Number [facility] [address] [place] [address] * Uric Acid (06/07/2024 4:10 PM EST) Uric Acid 5.9 3.1 - 7.9 mg/dL [facility] Comment:Therapeutic target f or gout patients: <6.0 06/07/2024 4:10 PM EST 06/07/2024 us Sarbjit Palumbo MD LAB BLOOD ORDERABLES Final Re sult Performing Organization Address [facility]/ZIP Co de Phone Number [facility] [address] [place] [address] * (ABNORMAL) Phosphorus (06/07/2024 4:10 PM EST) Phosphorus 4.5(H) 3.0 - 4.3 mg/dL [facility] 06/07/2024 4:10 PM EST 06/07/2024 us Sarbjit Palumbo MD LAB BLOOD ORDERABLES Final Re sult Performing Organization Address City/[facility]/ZIP Co de Phone Number [facility] [address] [place] [address] * (ABNORMAL) PTH, Intact (06/07/2024 4:10 PM EST) PTH 6(L) 15 - 65 pg/mL [facility] 06/07/2024 4:10 PM EST 06/07/2024 us Sarbjit Palumbo MD LAB BLOOD ORDERABLES Final Re sult [facility] [address] [place] [address] * Magnesium (06/07/2024 4:10 PM EST) Pathologist [facility] Magnesium 1.6 1.6 - 2.3 mg/dL [facility] 06/07/2024 4:10 PM EST 06/07/2024 Sarbjit Palumbo MD LAB BLOOD ORDERABLES Final Re sult [facility] [address] [place] [address] * Albumin (06/07/2024 4:10 PM EST) Pathologist [facility] Albumin 4.0 3.8 - 4.8 g/dL [facility] 06/07/2024 4:10 PM EST 06/07/2024 Sarbjit Palumbo MD LAB BLOOD ORDERABLES Final Re sult [facility] [address] [place] [address] * (ABNORMAL) Basic Metabolic Panel (06/07/2024 4:10 PM EST) Pathologist [facility] Glucose 75 70 - 99 mg/dL [facility] BUN 33(H) 8 - 27 mg/dL [facility] Creatinine 1.83(H) 0.57 - 1.00 mg/dL [facility] eGFR CKD-EPI CR 2020 28(L) >59 mL/min/1.7 3 [facility] BUN/Creatinine Ratio 18 12 - 28 [facility] Sodium 131(L) 134 - 144 mmol/L [facility] Potassium 4.4 3.5 - 5.2 mmol/L [facility] Chloride 91(L) 96 - 106 mmol/L [facility] Bicarbonate (CO2) 22 20 - 29 mmol/L [facility] Calcium 11.0(H) 8.7 - 10.3 mg/dL [facility] Comment:Verified by repeat analysis 06/07/2024 4:10 PM EST 06/07/2024 us Sarbjit Palumbo MD LAB BLOOD ORDERABLES Final Re sult [facility] [address] [place] [address] * (ABNORMAL) Hemoglobin A1c (05/12/2023 12:23 PM EDT) Hemoglobin A1C 6.3(H) (4.0-5.6) % [facility] Comment: MONITORING: In known diabetic patients, hemoglobin A1c targets should be discussed with health care provider. DIAGNOSTIC USE: ??The [place] Diabetes Association (ADA) and the World Health Organization (WHO) recommend the use of HbA1c to diagnose diabetes using a threshold of 6.5%. Patients who have an HbA1c between 5.7% and 6.4% are considered at increased risk for developing diabetes in the future. CAUTION: Falsely low HbA1c results may be observed in patients with hemolytic anemia, homozygous forms of abnormal hemoglobin (e.g. SS, CC, SC), , recent blood loss or hemoglobin F greater than 7%. Fructosamine may be used as an alternate test in these cases. REFERENCE: ADA: Standards of Medical Care in Diabetes 2020, The Journal of Clinical and Applied Research and Education Volume 43, Supplement 1 Testing performed or reported by [facility], a Service of [facility], [address] [place] [address] Zach Engle MD, Warehouse Delivery Driver [facility]# [id number] Blood (Blood, Venous) 05/12/2023 12:23 PM EDT 05/12/2023 12:26 PM EDT us Balaji Nascimento MD LAB BLOOD ORDERABLES Final Res ult [facility] from Last 3 Months or Most Recently Relevant to Health Maintenance Insurance MEDICARE [facility] MEDICARE [facility] [place] Care Teams Critical Care Registered Nurse Relationship Specialty Start Date End Date Lynn Garcia NP [address] [place] [address] PCP - General 05/24/19
--- OUTSIDE RECORDS SUMMARY | 2024-08-16 14:27 | XMS_ITS | Encounter Summary ---
Author Organization [facility] [place], Address [address] [place] [address] Phone Care Team Providers Care Shear Setter Name Role Phone Mitul Garcia NP Primary Care Provider [phone] Encounter Details Date Type Department Care Team (Late Contact Info) Description 01/08/2024 Documentation Only [facility] [address] [place] [address] [place], [place] [address] [place] [address] Social History Tobacco Use Types Packs/Day Years Used Date Smoking Tobacco: Former Cigarettes Q uit: 07/20/1963 Comments Unknown Sex and Gender Information Value Date Recorded Sex Assigned at Not on file Legal Sex Female 4:34 PM EST Gender Identity Not on file Sexual Orientation Not on file documented as of this encounter Plan of Treatment Upcoming Encounters Date Type Department Care Team ([facility] Contact Info) Description 10/11/2024 9:50 AM EDT Office Visit [facility] [address] [place] [address] Sarbjit Palumbo MD [address] [place] [phone] documented as of this encounter Visit Diagnoses Not on filedocumented in this encounter Care Teams Shear Setter Relationship Specialty Start Date End Date Mitul Garcia NP [address] [place] [address] PCP - General 05/24/19 documented as of this encounter
--- OUTSIDE RECORDS SUMMARY | 2024-08-16 14:27 | XMS_ITS ---
Author Organization [facility] Address Unknown Allergies, Adverse Reactions, Alerts Substance Reaction Status Noted Date Resolved Date Trimethoprim active 08/25/2022 Sulfamethoxazole active 08/25/2022 Phenytoin active 08/25/2022 Bactrim active 08/25/2022 Adhesive Tape active 08/25/2022 Problems Problem Status Start Date End Date OTHER LACK OF COORDINATION (Primary) (R27.8 - ICD-10-C M) ACTIVE 08/25/2022 SEPSIS, UNSPECIFIED ORGANISM (A41.9 - ICD-10-CM) ACTIV E 08/25/2022 EXTENDED SPECTRUM BETA LACTA FAUSTINA (ESBL) RESISTANCE (Z16.12 - ICD-10-CM) ACTIVE 08/25/2022 URINARY TRACT INFECTION, SIT E NOT SPECIFIED (N39.0 - ICD-10-CM) ACTIVE 08/25/2022 NON-ST ELEVATION (NSTEMI) MY OCARDIAL INFARCTION (I21.4 - ICD-10-CM) ACTIVE 08/25/2022 TYPE 2 DIABETES MELLITUS WIT HOUT COMPLICATIONS (E11.9 - ICD-10-CM) ACTIVE 08/25/2022 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) ACTIVE 08/25/2022 HYPERLIPIDEMIA, UNSPECIFIED (E78.5 - ICD-10-CM) ACTIVE 08/25/2022 GASTRO-ESOPHAGEAL REFLUX DIS EASE WITHOUT ESOPHAGITIS (K21.9 - ICD-10-CM) ACTIVE 08/25/2022 OTHER DISORDERS OF LUNG (J98.4 - ICD-10-CM) ACTIVE 08/25/2022 IRRITABLE BOWEL SYNDROME WITH DIARRHEA (K58.0 - ICD-10 -CM) ACTIVE 08/25/2022 UNSPECIFIED CONVULSIONS (R56.9 - ICD-10-CM) ACTIVE 08/25/2022 TYPE 2 DIABETES MELLITUS WIT H UNSPECIFIED DIABETIC RETINOPATHY WITH MACULAR EDEMA (E11.311 - ICD-10-CM) ACTIVE 023 OTHER ABNORMAL FINDINGS IN URINE (R82.998 - ICD-10-CM) ACTIVE 08/25/2022 ESSENTIAL (PRIMARY) HYPERTENSION (I10 - ICD-10-CM) ACT COTY 08/25/2022 Encounters Encounter Performer Performer Role Encounter Diagnoses Location Date Discharge - Discharged to home or self care - [facility] - Private home/apt. with home health services [facility] 3 04:40 pm EST - 3 01:30 pm EST Immunizations Vaccine Date TB 1 Step Mantoux (PPD) 09/05/2022 12:00 am EST PCV13 (Pneumococcal Conjugate)Vaccine 12:00 am EDT PPSV23 (Previous Pneumococcal Polysaccha ride)Vaccine 05/19/2020 12:00 am EDT Influenza Vaccine 06/03/2022 12:00 am EST SARS-COV-2 (COVID-19) 09/11/2020 12:00 a m EST SARS-COV-2 (COVID-19) 08/21/2020 12:00 a m EST Pfizer Covid-19 Booster (SARS-COV-2) vac cine 05/06/2021 12:00 am EDT Pfizer-BioNtech Covid-19 Bi-valent Solut ion 06/03/2022 12:00 am EST Social History
--- OUTSIDE RECORDS SUMMARY | 2024-08-16 14:27 | XMS_ITS | Encounter Summary ---
Author Organization [facility] [place], Address [address] [place] [address] Phone Care Team Providers Care Shale Miner Blasting Name Role Phone Mitul Garcia FINANCIAL INTERN Primary Care Provider [phone] Reason for Visit * Reason Comments Med Refill Encounter Details Date Type Department Care Team (Late Contact Info) Description 10/20/2019 Refill [facility] [address] [place] [phone] Balaji Nascimento MD [address] [place] [address] Social History Tobacco Use Types [...] Visit [facility] [place], [address] [place] [address] Sarbjit Palumbo MD [address] [place] [address] documented as of this encounter Visit Diagnoses Not on filedocumented in this encounter Care Teams Shale Miner Blasting Relationship Specialty Start Date End Date Mitul Garcia NP [address] [place] [address] PCP - General 05/24/19 documented as of this encounter
--- OUTSIDE RECORDS SUMMARY | 2024-08-16 14:27 | XMS_ITS | Encounter Summary ---
Author Organization [facility] [place], Address [address] [place] [address] Phone Care Team Providers Care Energy Conservation Specialist Name Role Phone Mitul Garcia HARD CANDY BATCH MIXER Primary Care Provider [phone] Encounter Details Date Type Department Care Team ([facility] Contact Info) Description 08/05/2024 Orders Only [facility] [address] [place] [address] Sarbjit Palumbo MD [address] [place] [address] [place] [place] [address] Gitelman syndrome Social History Tobacco Use Types Packs/Day Years Used Date Smoking Tobacco: Former Cigarettes Q uit: 07/20/1964 Comments Unknown Sex and Gender Information Value Date Recorded Sex Assigned at Not on file Legal Sex Female 4:34 PM EST Gender Identity Not on file Sexual Orientation Not on file documented as of this encounter Plan of Treatment Upcoming Encounters Date Type Department Care Team ([facility] Contact Info) Description 10/11/2024 9:50 AM EDT Office Visit [facility] [address] [place] [address] Sarbjit Palumbo MD [address] [place] [address] [place] [address] documented as of this encounter Visit Diagnoses Diagnosis Gitelman syndrome documented in this encounter Care Teams Energy Conservation Specialist Relationship Specialty Start Date End Date Mitul Garcia NP [address] [place] [address] PCP - General 05/24/19 documented as of this encounter
--- OUTSIDE RECORDS SUMMARY | 2024-08-16 14:27 | XMS_ITS ---
Author Organization [facility] Address [address] [place] [address] Care Team Providers Care Manager Of Production Name Role Phone LYNN NICOLE Primary Care Provider Giorgio Kathleen Jr, Rc Michael REASON FOR VISIT labs MEDICATIONS Medication SIG (Take, Route, Fr equency, Duration) Notes Start Date End Date Status Creon [id number] UNIT 2 capsules with m eals and 1 capsule with snacks Orally for 30 days 03/17/2024 Active Encounters Encounter Location Date Provider Diagnosis [facility] [address] [place] [address] 03/17/2024 Rc Kathleen Jr PLAN OF TREATMENT Medication Medication Name Sig Start Date Stop Date Notes Creon [id number] UNIT 2 capsules with m eals and 1 capsule with snacks Orally for 30 days 03/17/2024 Next Appt Details Provider Name:Rc coronado Jr, 11/16/2024 11:00:00 AM, [address] [place] [address], [address], [place], [address],
--- OUTSIDE RECORDS SUMMARY | 2024-08-16 14:27 | XMS_ITS | Encounter Summary ---
Author Organization [facility] [place], Address [address] [place] [address] Phone Care Team Providers Care [place] Paint Name Role Phone Mitul Garcia MAIL DELIVERER Primary Care Provider [phone] Encounter Details Date Type Department Care Team ([facility] Contact Info) Description 02/19/2024 Orders Only [facility] [address] [place] [address] Sarbjit Palumbo MD [address] [place] [address] [place] [place] [address] Gitelman syndrome Social History Tobacco [...] Upcoming Encounters Date Type Department Care Team ([facility] Contact Info) Description 10/11/2024 9:50 AM EDT Office Visit [facility] [address] [place] [address] Sarbjit Palumbo MD [address] [place] [address] [place] [place] [address] documented as of this encounter Visit Diagnoses Diagnosis Gitelman syndrome documented in this encounter Care Teams Baker Paint Relationship Specialty Start Date End Date Mitul Garcia NP [address] [place] [address] PCP - General 05/24/19 documented as of this encounter
--- OUTSIDE RECORDS SUMMARY | 2024-08-16 14:27 | XMS_ITS ---
Author Organization [facility] Address [address] [place] [address] Care Team Providers Care Derrick Hand Name Role Phone Mitul Mccrary Primary Care Provider Quyen Moreno Unavailable [phone] REASON FOR VISIT Lidocaine (5 % Ointment) Medications Medication SIG (Take, Route, Frequency, Duration) Notes Start Date End Date Status Lidocaine 5 % 1 application as nee ded Externally Three times a day for 30 days 06/13/2024 Ac tive Encounters Encounter Location Date Provider Diagnosis [facility] [address] [place] [address] 06/22/2024 Quyen De Leon Ingrown nail L60.0 Assessments Encounter Date Diagnosis (ICD Code) Assessment Notes Treatment Notes Treatment Clinical Notes Section Notes 06/22/2024 Ingrown nail (ICD-10 - L60.0) Plan Of Treatment Medication Medication Name Sig Start Date Stop Date Notes Lidocaine 5 % 1 application as nee ded Externally Three times a day for 30 days 06/13/2024 Next Appt Details Provider Name:Quyen levy, 11/28/2024 03:30:00 PM, [address] [place], [address], Progress Notes * Wanda THOMPSON MDOB: (78 yo F)Acc No.[id number]:06/22/2024 Patient:?Wanda THOMPSON :1945???Age:78 Y???Sex:Female Address:[address] [place] [address], [address] * Refills? Refill Lidocaine Ointment, 5 %, Externally, 60 Gram, 1 application as needed, Three times a day, 30 days, Refills=0 * true * Date:? Generated for Wilfredo serrato/Taj/Yoelitting on:?08/16/2024 02:27 PM EST
--- OUTSIDE RECORDS SUMMARY | 2024-08-16 14:27 | XMS_ITS | Encounter Summary ---
Author Organization [facility] [place], Address [address] [place] [address] Phone Care Team Providers Care Containers Sales Representative Name Role Phone Mitul Garcia NURSE PRACTITIONER PER DIEM Primary Care Provider [phone] Reason for Visit * Reason Comments Med Refill Encounter Details Date Type Department Care Team (Late Contact Info) Description 10/17/2019 Refill [facility] [address] [place] [phone] Balaji Nascimento MD [address] [place] [address] Social History Tobacco Use Types [...] Upcoming Encounters Date Type Department Care Team ([facility] Contact Info) Description 10/11/2024 9:50 AM EDT Office Visit [facility] [place], [address] [place] [address] Sarbjit Palumbo MD [address] [place] [place] [address] documented as of this encounter Visit Diagnoses Not on filedocumented in this encounter Care Teams Containers Sales Representative Relationship Specialty Start Date End Date Mitul Garcia NP [address] [place] [address] PCP - General 05/24/19 documented as of this encounter
--- OUTSIDE RECORDS SUMMARY | 2024-08-16 14:28 | XMS_ITS | Encounter Summary ---
Author Organization [facility] [place], Address [address] [place] [address] Phone Care Team Providers Care Hold Worker Name Role Phone Mitul Garcia SIGNAL TECHNICIAN Primary Care Provider [phone] Encounter Details Date Type Department Care Team ([facility] Contact Info) Description 07/29/2021 Documentation Only [facility] [address] [place] [address] Italia Rivers [address] [place] [phone] Social History Tobacco Use Types Packs/Day Years Used Date Smoking Tobacco: Former Cigarettes Q uit: 07/20/1963 Comments Unknown Sex and Gender Information Value Date Recorded Sex Assigned at Not on file Legal Sex Female 4:34 PM EST Gender Identity Not on file Sexual Orientation Not on file documented as of this encounter Plan of Treatment Upcoming Encounters Date Type Department Care Team ([facility] Contact Info) Description 10/11/2024 9:50 AM EDT Office Visit [facility] [address] [place] [address] Sarbjit Palumbo MD [address] [place] [address] Dr[address] [place]ías [place] [id number] documented as of this encounter Visit Diagnoses Not on filedocumented in this encounter Care Teams Hold Worker Relationship Specialty Start Date End Date Mitul Garcia NP [address] [place] [address] PCP - General 05/24/19 documented as of this encounter
--- OUTSIDE RECORDS SUMMARY | 2024-08-16 14:28 | XMS_ITS | Encounter Summary ---
Author Organization [facility] [place], Address [address] [place] [address] Phone Care Team Providers Care Filter Tank Operator Name Role Phone Mitul Garcia AUTO INSPECTOR Primary Care Provider [phone] Encounter Details Date Type Department Care Team ([facility] Contact Info) Description 11/27/2023 Orders Only [facility] [address] [address] Sarbjit Palumbo MD [address] [place] [address] [address] [place] [place] [address] Gitelman syndrome Social History Tobacco [...] Upcoming Encounters Date Type Department Care Team ([facility] Contact Info) Description 10/11/2024 9:50 AM EDT Office Visit [facility] [address] [address] Sarbjit Palumbo MD [address] [place] [address] [place] [address] documented as of this encounter Visit Diagnoses Diagnosis Gitelman syndrome documented in this encounter Care Teams Filter Tank Operator Relationship Specialty Start Date End Date Mitul Garcia NP [address] [place] [address] PCP - General 05/24/19 documented as of this encounter
--- OUTSIDE RECORDS SUMMARY | 2024-08-16 14:28 | XMS_ITS | Encounter Summary ---
Author Organization [facility] [place], Address [address] [place] [address] Phone Care Team Providers Care Tire Room Supervisor Name Role Phone Mitul Garcia NP Primary Care Provider [phone] Encounter Details Date Type Department Care Team (Late Contact Info) Description 09/16/2023 Documentation Only [facility] [address] [place] [address] [place], [place] [address] [place] [address] Social History Tobacco Use Types [...] Upcoming Encounters Date Type Department Care Team ([facility] Contact Info) Description 10/11/2024 9:50 AM EDT Office Visit [facility] [place], [address] [place] [address] Sarbjit Palumbo MD [address] [place] [phone] documented as of this encounter Visit Diagnoses Not on filedocumented in this encounter Care Teams Tire Room Supervisor Relationship Specialty Start Date End Date Mitul Garcia NP [address] [place] [address] PCP - General 05/24/19 documented as of this encounter
--- OUTSIDE RECORDS SUMMARY | 2024-08-16 14:28 | XMS_ITS | Encounter Summary ---
Author Organization [facility] Address [address] [place] [address] Phone Care Team Providers Care Speech Professor Name Role Phone Mitul Garcia ROOF SERVICE TECHNICIAN Primary Care Provider [phone] Encounter Details Date Type Department Care Team ([facility] Contact Info) Description 12/25/2022 Documentation Only [facility] [address] [place] [address] Italia Rivers [address] [place] [phone] Social History Tobacco Use Types Packs/Day Years Used Date Smoking Tobacco: Former Cigarettes Q uit: 07/20/1963 Comments Unknown Sex and Gender Information Value Date Recorded Sex Assigned at Not on file Legal Sex Female 4:34 PM EST Gender Identity Not on file Sexual Orientation Not on file documented as of this encounter Plan of Treatment Upcoming Encounters Date Type Department Care Team ([facility] Contact Info) Description 10/11/2024 9:50 AM EDT Office Visit [facility] [address] [place] [address] Sarbjit Palumbo MD [address] [place] [address] [address] [place] [place] [phone] documented as of this encounter Visit Diagnoses Not on filedocumented in this encounter Care Teams Speech Professor Relationship Specialty Start Date End Date Mitul Garcia NP [address] [place] [address] PCP - General 05/24/19 documented as of this encounter
--- OUTSIDE RECORDS SUMMARY | 2024-08-16 14:28 | XMS_ITS | Encounter Summary ---
Author Organization [facility] Address [address] [place] [address] Phone Care Team Providers Care Fraud Investigator Name Role Phone Mitul Garcia FUR TINTER Primary Care Provider [phone] Encounter Details Date Type Department Care Team ([facility] [address] Contact Info) Description 12/25/2022 Documentation Only [facility] [address] [place] [address] Italia Rivers [address] [place] [phone] Social History Tobacco Use Types Packs/Day Years Used Date Smoking Tobacco: Former Cigarettes Q uit: 07/20/1964 Comments Unknown Sex and Gender Information Value Date Recorded Sex Assigned at Not on file Legal Sex Female 4:34 PM EST Gender Identity Not on file Sexual Orientation Not on file documented as of this encounter Plan of Treatment Upcoming Encounters Date Type Department Care Team ([facility] [address] Contact Info) Description 10/11/2024 9:50 AM EDT Office Visit [facility] [address] [place] [address] Sarbjit Palumbo MD [address] [place] [address] [place] [place]ías [place] [phone] documented as of this encounter Visit Diagnoses Not on filedocumented in this encounter Care Teams Fraud Investigator Relationship Specialty Start Date End Date Mitul Garcia NP [address] [place] [address] PCP - General 05/24/19 documented as of this encounter
--- OUTSIDE RECORDS SUMMARY | 2024-08-16 14:28 | XMS_ITS ---
Author Organization [facility] Address [address] [facility] [place] [address] Care Team Providers Care Cork Insulator Name Role Phone Mitul Mccrary Primary Care Provider Rob Quyen Hayden Unavailable [phone] REASON FOR VISIT Ankle pain Medications Medication SIG (Take, Route, Frequency, Duration) Notes Start Date End Date Status Lidocaine 5 % 1 application as nee ded Externally Three times a day for 30 days 06/13/2024 Active Gabapentin 300 MG TK 1 C PO BID Oral f or 90 Not-Taking Ammonium Lactate 12 % ASHUTOSH QAM AND QPM TO DRY SKIN ON FEET AND LEGS External for 30 Not-Taking Dicyclomine HCl 20 MG TK 1 T PO QID Oral for 30 Not-Taking Lidocaine 5 % 1 application as nee ded Externally Three times a day 06/15/2024 Active Diphenoxylate-Atropine 2.5-0.025 MG (Schedule V Drug) Oral for 30 Not-Taking Amoxicillin 500 MG TK 4 CS PO 1 HOUR BEFORE DENTAL APPOINTMENT Oral for 3 Not-Takin g Azithromycin 250 MG TK 2 TS PO FOR 1 DAY THEN TK 1 T PO D FOR 4 DAYS Oral for 5 Not-Taking Estrogel 0.75 MG/1.25 GM (0.06%) ASHUTOSH 1 PUMP AA UTD Transdermal for 69 Not-Taking Ibandronate Sodium 150 MG TK 1 T PO ONCE A MONTH Oral for 90 Not-Taking Calcitonin ([place]) 200 UNIT/ACT USE 1 SPRAY NASALLY QD. ALTERNATE NOSTRILS EACH DAY Nasal for 90 Not-Taking Magnesium Oxide 400 MG 1 capsule as need ed Orally Once a day Not-Taking Vitamin D (Ergocalciferol) 22322 UNIT TK 1 C PO ONCE A WEEK Oral for 90 Not-Taking Kzjryaahyk-IEFU-Lrhenrfa 50-325-40 MG 1 capsule as needed Orally every 4 hrs Not-Taking Lotrimin AF 1 % 1 application to affected area Externally Twice a day Not-Takin g Tradjenta Not-Taking Loperamide HCl 2 MG 1 tablet Orally 8 time(s) a day Not-Taking Colcrys 0.6 MG 1 tablet Orally Once a day for 10 days 08/30/2018 Not-Taking Ibuprofen 800 MG 1 tablet with food o r milk as needed Orally Three times a day for 10 days 08/30/2018 Not-Taking vitamin D Not-Taking Extra Depth Orthopedic Shoes (1 Pair) with Customized Heat Molded Multidensity Innersoles (3 Pair) as directed Dx: NIDDM/Polyneuropathy (E11.42), Hammertoe Foot Deformity (M20.41,M20.42), Preulcerative Skin Lesion(s) (L85.1 10/15/2021 Active AFO-fixed . 1 . Wear daily for . 10/15/2021 Active Doxycycline Hyclate 100 MG 1 capsule Orally Twice a day for 10 day(s) 01/18/2019 Not-Taking Extra Depth Orthopedic Shoes (1 Pair) with Customized Heat Molded Multidensity Innersoles (3 Pair) as directed Dx: NIDDM/Polyneuropathy (E11.42), Hammertoe Foot Deformity (M20.41,M20.42), Preulcerative Skin Lesion(s) (L85.1 06/27/2020 Active Voltaren 1 % as directed External ly 4 times a day 08/05/2024 Active Walking Boot/Pneumatic As directed Wear Daily for Until further notice 02/27/2020 Active AFO-fixed . 1 . Wear daily for . 05/11/2020 Active Mupirocin 2 % 1 application Externally Once a day for 30 days Active Trulicity 1.5 MG/0.5ML as directed Subcutaneous Active Extra Depth Diabetic Shoes with 3 Pair Custom heat-molded multi-density innersoles for 1 year Dx: Active Magnesium Active tiZANidine HCl Activ e Metoprolol Succinate Active oxyBUTYnin Chloride ER 15 MG TK 1 T PO BID Oral for 90 Active Celecoxib 100 MG TAKE 1 CAPSULE TWICE DAILY Oral for 30 Active Omeprazole 40 MG TK 1 C PO BID Oral f or 30 Active Spironolactone 50 MG TK 1 T PO BID Oral for 90 Active traMADol HCl 50 MG (Schedule IV Drug) T K 2 TS PO TID Oral for 30 Active Walking Boot/Pneumatic As directed Wear Daily for Until further notice 10/14/2016 Active PARoxetine HCl 40 MG TK 1 T PO QD Oral f or 30 Active Lyrica 50 MG Orally Active Problems Problem Type SNOMED Code ICD Code Onset Dates Problem Status W/U Status Risk Notes Problem [id number] Arthritis of left ankle (M19.072) Active confirmed Encounters Encounter Location Date Provider Diagnosis [facility] [place] [address] [place] [address] 08/04/2024 Quyen De Leon Arthritis of left ankle M19.072 and Lower extremity edema R60.0 Assessments Encounter Date Diagnosis (ICD Code) Assessment Notes Treatment Notes Treatment Clinical Notes Section Notes 08/04/2024 Arthritis of left ankle (ICD-10 - M19.072) 08/04/2024 Lower extremity edema (ICD-10 - R60.0) Plan Of Treatment Medication Medication Name Sig Start Date Stop Date Notes Voltaren 1 % as directed Externally 4 times a day 08/05/19 25 Next Appt Details Follow Up: 3 Months, Reason: Provider Name:Quyen levy, 11/28/2024 03:30:00 PM, [address] [place] [address], [phone], Progress Notes * Wanda THOMPSON MDOB: 5 (78 yo F)Acc No.[id number]:08/04/2024 Progress Notes Patient:?Wanda THOMPSON Provider:?Quyen De Leon DPM :1945???Age:78 Y???Sex:Female D ate:08/04/2024 Address:[address] [place], [place] [phone] Pcp:MARQUISE Morin Subjective: * Chief Complaints: * ???Ankle pain * HPI: ???Ankle Pain:?Nature:?swelling, left ankle no associated injury mild tenderness with ambulation.?Location:?Outside aspect of the Left ankle.?Duration: ?several weeks.?Onset/Cause:?gradual.?Course:?worse.?Aggravated by:?any pressure, standing, walking.?Treatments:?rest/alter normal daily activity, ice.? * Medical History:? * Surgical History:? * Hospitalization/Major Diagno stic Procedure:? * Medications:?TakingLyrica 50 MG Capsule Orally PARoxetine HCl 40 MG Tablet TK 1 T PO QD Oral Omeprazole 40 MG Capsule Delayed Release TK 1 C PO BID Oral Spironolactone 50 MG Tablet TK 1 T PO BID Oral traMADol HCl 50 MG Tablet (Schedule IV Drug) TK 2 TS PO TID Oral Walking Boot/Pneumatic As directed Wear Daily Magnesium tiZANidine HCl Metoprolol Succinate oxyBUTYnin Chloride ER 15 MG Tablet Extended Release 24 Hour TK 1 T PO BID Oral Celecoxib 100 MG Capsule TAKE 1 CAPSULE TWICE DAILY Oral Extra Depth Diabetic Shoes with 3 Pair Custom heat-molded multi-density innersoles for 1 year Dx: Trulicity 1.5 MG/0.5ML Solution Pen-injector as directed Subcutaneous Walking Boot/Pneumatic As directed Wear Daily AFO-fixed . Ankle-Foot Orthotic 1 . Wear daily Mupirocin 2 % Ointment 1 application Externally Once a day Extra Depth Orthopedic Shoes (1 Pair) with Customized Heat Molded Multidensity Innersoles (3 Pair) as directed Dx: NIDDM/Polyneuropathy (E11.42), Hammertoe Foot Deformity (M20.41,M20.42), Preulcerative Skin Lesion(s) (L85.1 Extra Depth Orthopedic Shoes (1 Pair) with Customized Heat Molded Multidensity Innersoles (3 Pair) as directed Dx: NIDDM/Polyneuropathy (E11.42), Hammertoe Foot Deformity (M20.41,M20.42), Preulcerative Skin Lesion(s) (L85.1 AFO-fixed . Ankle-Foot Orthotic 1 . Wear daily Lidocaine 5 % Ointment 1 application as needed Externally Three times a day Lidocaine 5 % Ointment 1 application as needed Externally Three times a day Taking Lyrica 50 MG Capsule Orally Taking PARoxetine HCl 40 MG Tablet TK 1 T PO QD Oral Taking Omeprazole 40 MG Capsule Delayed Release TK 1 C PO BID Oral Taking Spironolactone 50 MG Tablet TK 1 T PO BID Oral Taking traMADol HCl 50 MG Tablet (Schedule IV Drug) TK 2 TS PO TID Oral Taking Walking Boot/Pneumatic As directed Wear Daily Taking Magnesium Taking tiZANidine HCl Taking Metoprolol Succinate Taking oxyBUTYnin Chloride ER 15 MG Tablet Extended Release 24 Hour TK 1 T PO BID Oral Taking Celecoxib 100 MG Capsule TAKE 1 CAPSULE TWICE DAILY Oral Taking Extra Depth Diabetic Shoes with 3 Pair Custom heat-molded multi-density innersoles for 1 year Dx: Taking Trulicity 1.5 MG/0.5ML Solution Pen-injector as directed Subcutaneous Taking Walking Boot/Pneumatic As directed Wear Daily Taking AFO-fixed . Ankle-Foot Orthotic 1 . Wear daily Taking Mupirocin 2 % Ointment 1 application Externally Once a day Taking Extra Depth Orthopedic Shoes (1 Pair) with Customized Heat Molded Multidensity Innersoles (3 Pair) as directed Dx: NIDDM/Polyneuropathy (E11.42), Hammertoe Foot Deformity (M20.41,M20.42), Preulcerative Skin Lesion(s) (L85.1 Taking Extra Depth Orthopedic Shoes (1 Pair) with Customized Heat Molded Multidensity Innersoles (3 Pair) as directed Dx: NIDDM/Polyneuropathy (E11.42), Hammertoe Foot Deformity (M20.41,M20.42), Preulcerative Skin Lesion(s) (L85.1 Taking AFO-fixed . Ankle-Foot Orthotic 1 . Wear daily Taking Lidocaine 5 % Ointment 1 application as needed Externally Three times a day Taking Lidocaine 5 % Ointment 1 application as needed Externally Three times a day Not-Taking/PRNDoxycycline Hyclate 100 MG Capsule 1 capsule Orally Twice a day Tradjenta vitamin D Colcrys 0.6 MG Tablet 1 tablet Orally Once a day Ibuprofen 800 MG Tablet 1 tablet with food or milk as needed Orally Three times a day Loperamide HCl 2 MG Tablet 1 tablet Orally 8 time(s) a day Vitamin D (Ergocalciferol) 39883 UNIT Capsule TK 1 C PO ONCE A WEEK Oral Kzaljvqoyh-RZLH-Aowgerzh 50-325-40 MG Capsule 1 capsule as needed Orally every 4 hrs Lotrimin AF 1 % Cream 1 application to affected area Externally Twice a day Calcitonin ([place]) 200 UNIT/ACT Solution USE 1 SPRAY NASALLY QD. ALTERNATE NOSTRILS EACH DAY Nasal Magnesium Oxide 400 MG Capsule 1 capsule as needed Orally Once a day Diphenoxylate-Atropine 2.5-0.025 MG Tablet (Schedule V Drug) Oral Amoxicillin 500 MG Capsule TK 4 CS PO 1 HOUR BEFORE DENTAL APPOINTMENT Oral Azithromycin 250 MG Tablet TK 2 TS PO FOR 1 DAY THEN TK 1 T PO D FOR 4 DAYS Oral Estrogel 0.75 MG/1.25 GM (0.06%) Gel ASHUTOSH 1 PUMP AA UTD Transdermal Ibandronate Sodium 150 MG Tablet TK 1 T PO ONCE A MONTH Oral Gabapentin 300 MG Capsule TK 1 C PO BID Oral Ammonium Lactate 12 % Cream ASHUTOSH QAM AND QPM TO DRY SKIN ON FEET AND LEGS External Dicyclomine HCl 20 MG Tablet TK 1 T PO QID Oral Not- Taking/PRN Doxycycline Hyclate 100 MG Capsule 1 capsule Orally Twice a day Not-Taking/PRN Tradjenta Not-Taking/PRN vitamin D Not-Taking/PRN Colcrys 0.6 MG Tablet 1 tablet Orally Once a day Not-Taking/PRN Ibuprofen 800 MG Tablet 1 tablet with food or milk as needed Orally Three times a day Not-Taking/PRN Loperamide HCl 2 MG Tablet 1 tablet Orally 8 time(s) a day Not-Taking/PRN Vitamin D (Ergocalciferol) 92400 UNIT Capsule TK 1 C PO ONCE A WEEK Oral Not-Taking/PRN Lsfapcxssa-HRLV-Eeihzxdn 50-325-40 MG Capsule 1 capsule as needed Orally every 4 hrs Not-Taking/PRN Lotrimin AF 1 % Cream 1 application to affected area Externally Twice a day Not-Taking/PRN Calcitonin ([place]) 200 UNIT/ACT Solution USE 1 SPRAY NASALLY QD. ALTERNATE NOSTRILS EACH DAY Nasal Not-Taking/PRN Magnesium Oxide 400 MG Capsule 1 capsule as needed Orally Once a day Not-Taking/PRN Diphenoxylate-Atropine 2.5-0.025 MG Tablet (Schedule V Drug) Oral Not-Taking/PRN Amoxicillin 500 MG Capsule TK 4 CS PO 1 HOUR BEFORE DENTAL APPOINTMENT Oral Not-Taking/PRN Azithromycin 250 MG Tablet TK 2 TS PO FOR 1 DAY THEN TK 1 T PO D FOR 4 DAYS Oral Not-Taking/PRN Estrogel 0.75 MG/1.25 GM (0.06%) Gel ASHUTOSH 1 PUMP AA UTD Transdermal Not-Taking/PRN Ibandronate Sodium 150 MG Tablet TK 1 T PO ONCE A MONTH Oral Not-Taking/PRN Gabapentin 300 MG Capsule TK 1 C PO BID Oral Not-Taking/PRN Ammonium Lactate 12 % Cream ASHUTOSH QAM AND QPM TO DRY SKIN ON FEET AND LEGS External Not-Taking/PRN Dicyclomine HCl 20 MG Tablet TK 1 T PO QID Oral Objective: * Vitals:? * Examination: ???Orthopedic: ?MUSCLE STRENGTH:? Dropfoot, Right, Generalized decrease in strength.?DIGITAL DEFORMITIES:?Digital contracture, PIPJ, 2-5 B/L, incompl-reducable to push-up test, no over, nor underlapping , Digital contracture, PIPJ, 2-5 B/L, incompl-reducable to push-up test, no over, nor underlapping.?ANKLE PAIN LOCATED:?LEFT, Lateral ankle, mild swelling, no tendernss with palpation of ATFL, CFL, PTFL, deltoid ligament, distal fibula or medial malleolus.?FOOTWEAR:?worn, nonsupportive?.?General Examination: ?FOOT EXAM:?Footwear Evaluation?Neurological: ?SENSORY:? Neurological exam demonstrates, reduced light touch sensation, reduced sharp/dull pin prick discrimination , reduced vibration sensation, reduced proprioception sensation, in a stocking fashion, plantar aspects, 5.07 monofilament test performed at plantar aspects of 5 varied sites per foot shows sensation, reduced , at Forefoot, at Midfoot, B/L.?Vascular: ?DP PULSES (B):?0/4, B/L.?PT PULSES (B):? 0/4, B/L.?CAPILLARY FILL TIME:? 6 secs. per digit.?TROPHIC CONDITION-TEXTURE/ELASTICITY/TURGOR/HAIR GROWTH (B):? sparce hair growth, dystrophic (thin,shiny).?TEMPERTURE GRADIENT (C):? decreased, cool to cool, proximal to distal, B/L.?PIGMENTATION:? pale, B/L.?EDEMA (C):? absent, B/L.? Assessment: * Assessment: 1.?Arthritis of left ankle - M19.072 (Primary)???2.?Lower extremity edema - R60.0??? Plan: * Treatment: * Procedure Codes:? * Preventive Medicine:? ??Counseling:?Discussion:?-13: Office or other outpatient visit for the evaluation and management of an established patient, which required a medically appropriate history and/or examination and LOW level of DECISION MAKING for: 1 STABLE ACUTE UNCOMPLICATED PROBLEM, 2 OR MORE MINOR PROBLEMS, OR 1 STABLE CHRONIC PROBLEM, THAT POSE(S) A LOW RISK FOR MORBIDITY/MORTALITY. The visit on the day of the encounter encompassed interpreting the data and educating the patient as to the nature of their condition, treatment options available according to their individual PMH, meds, allergies, and overall health/living conditions, as well as any potential risks or complications that may occur from a failure to adhere to, and participate in, the recommended course of therapy. The discussion included a complete verbal, and/or written explanation of the examination results, any x-rays taken, the proposed diagnosis, and outline of the treatment plan. A schedule for future care needs was also explained. The patient verbalized an understanding of the instructions at this time and agreed to be an active participant in their treatment. If the patient should think of any questions or concerns after the visit, I have encouraged the patient to call the office.?Ankle Pain:?I explained to the patient the possible etiologies of their Ankle Pain, including foot type/shoegear/activity level/exercise routine and the risks/benefits of all the different treatment options for pain including: No treatment at all, Rest, Ice, NSAIDs(only if well tolerated after meals), New/supportive Shoegear, Strappings and Tapings, Foot/Ankle AFO Bracing, Stretching exercises, Deep Tissue Massage, Heel cups/cushions, Arch support/shoe inserts, Custom orthoses, Topical analgesics including Aspercream/Voltaren gel, Night splints for am stiffness, Physical Therapy, EPAT/ESWT, Interfil injection therapy. Advantages and disadvantages of each option were discussed and the patients questions re: shoegear, custom vs prefabricated inserts, activity level, PO vs Topical medications (and their respective potential complications/drug interactions/side effects), and consistency in home treatment regimens for optimal success were answered to their verbally confirmed satisfaction.?Orthotics:?AFO - I explained to the patient the benefits of AFO use. Recomm AFO Lower Extrmity Bracing to accomidate the patients deformity and result in pain relief without surgery, Patient signed confirmation form indicating receipt of DME device.?P.R.I.C.E.:?The patient was counseled on the use of P.R.I.C.E. and NSAIDS (if well tolerated) to aid in the recovery from their painful condition, Recommended Topical analgesics including Aspercream/Biofreeze/Voltaren gel as directed.? ??Screening/Special Tests:?Fall Risk?Assessment:?Performed ?Plan of Care:?Documented ?Type of fall plan of care:?Balance, strength and gait training or instruction provided ?Screening:?One fall with injury in the past year ?FALLS: Screening for Future Fall Risk?Have you had two or more falls in the past year??No ?Have you had any falls with injury in the past year??Yes * Follow Up:?3 Months * Images: * Sign off status: Completed true * Provider:?Quyen De Leon DPM Date:?0 08/04/2024 Generated for Wilfredo serrato/Taj/Daphnie on:?08/16/2024 02:28 PM EST History and Physical Notes * HPI (History of Present Illness) Category Sub-Category Detail Notes Category Not es Ankle Pain Duration: several weeks Nature: swelling, left ankle no associated injury mild tenderness with ambulation Treatments: rest/alter normal da willian activity, ice Course: worse Location: Outside aspect of th e Left ankle Onset/Cause: gradual Aggravated by: any pressure, standi ng, walking Examination Category Sub-Category Detail Notes Category Not es Neurological SENSORY: Neurological exa m demonstrates, reduced light touch sensation, reduced sharp/dull pin prick discrimination , reduced vibration sensation, reduced proprioception sensation, in a stocking fashion, plantar aspects, 5.07 monofilament test performed at plantar aspects of 5 varied sites per foot shows sensation, reduced , at Forefoot, at Midfoot, B/L Orthopedic ANKLE PAIN LOCATED: LEFT, Latera l ankle, mild swelling, no tendernss with palpation of ATFL, CFL, PTFL, deltoid ligament, distal fibula or medial malleolus FOOTWEAR: worn, nonsupportive DIGITAL DEFORMITIES: Digital contracture , PIPJ, 2-5 B/L, incompl-reducable to push-up test, no over, nor underlapping , Digital contracture, PIPJ, 2-5 B/L, incompl-reducable to push-up test, no over, nor underlapping TENDONITIS: MUSCLE STRENGTH: Dropfoot, Right, Gen eralized decrease in strength General Examination FOOT EXAM: Lower Extrem ity Neurological Exam performed:: Yes Footwear Evaluation Footwear Evaluation performe d:: Yes Vascular DP PULSES (B): 0/4, B/L PT PULSES (B): 0/4, B/L CAPILLARY FILL TIME: 6 secs. per digit TEMPERTURE GRADIENT (C): decreased, cool to cool, proximal to distal, B/L TROPHIC CONDITION-TEXTURE/ELASTICITY/TURGOR/HAIR GROWTH (B): sparce hair growth, dystrophic (thin,xochitl ny) EDEMA (C): absent, B/L PIGMENTATION: pale, B/L
--- OUTSIDE RECORDS SUMMARY | 2024-08-16 14:28 | XMS_ITS | Encounter Summary ---
Author Organization [facility], Address [address] [place] [address] Phone Care Team Providers Care Supervisor Hide House Name Role Phone Mitul Garcia PROTECTION ENGINEER Primary Care Provider [phone] Encounter Details Date Type Department Care Team ([facility] Contact Info) Description 05/13/2024 Orders Only [facility] [address] [place] [address] Sarbjit Palumbo MD [address] [place] [address] [address] [place] [address] Gitelman syndrome Social History Tobacco [...] Upcoming Encounters Date Type Department Care Team ([facility] Contact Info) Description 10/11/2024 9:50 AM EDT Office Visit [facility] [address] [place] [address] Sarbjit Palumbo MD [address] [place] [address] [place] [place] [address] documented as of this encounter Visit Diagnoses Diagnosis Gitelman syndrome documented in this encounter Care Teams Supervisor Hide House Relationship Specialty Start Date End Date Mitul Garcia NP [address] [place] [address] PCP - General 05/24/19 documented as of this encounter
--- OUTSIDE RECORDS SUMMARY | 2024-08-16 14:28 | XMS_ITS ---
Author Organization [facility] Address [address] [place] [address] Care Team Providers Care Cattle Tester Name Role Phone Mitul Mccrary Primary Care Provider Unav Quyen Hayden [phone] REASON FOR VISIT Voltaren RX Encounters Encounter Location Date Provider Diagnosis [address] [address] 08/15/2024 Quyen De Leon Plan Of Treatment Next Appt Details Provider Name:Quyen levy, 11/28/2024 03:30:00 PM, [address] [place], [address], Progress Notes * Wanda THOMPSON MDOB: (78 yo F)Acc No.[id number]:08/15/2024 Patient:?Wanda THOMPSON :1945???Age:78 Y???Sex:Female Address:[address] [place] [address], [phone] * true * Date:? Generated for Printi rojelio/Taj/eTransmitting on:?08/16/2024 02:27 PM EST
--- OUTSIDE RECORDS SUMMARY | 2024-08-16 14:28 | XMS_ITS | Encounter Summary ---
Author Organization [facility] Address [address] [place] [address] Phone Care Team Providers Care Senior Operator Name Role Phone Mitul Garcia SENIOR BILLING CONSULTANT Primary Care Provider [phone] Encounter Details Date Type Department Care Team ([facility] Contact Info) Description 11/27/2022 Documentation Only [facility] [address] [place] [address] Italia Rivers [address] [place] [phone] Social History Tobacco Use Types Packs/Day Years Used Date Smoking Tobacco: Former Cigarettes Q uit: 07/20/1963 Comments Unknown Sex and Gender Information Value Date Recorded Sex Assigned at Not on file Legal Sex Female 4:34 PM EST Gender Identity Not on file Sexual Orientation Not on file documented as of this encounter Plan of Treatment Upcoming Encounters Date Type Department Care Team ([facility] Contact Info) Description 10/11/2024 9:50 AM EDT Office Visit [facility] [address] [place] [address] Sarbjit Palumbo MD [address] [place] [address] [address] [place]ías [place] [id number] documented as of this encounter Visit Diagnoses Not on filedocumented in this encounter Care Teams Senior Operator Relationship Specialty Start Date End Date Mitul Garcia NP [address] [place] [address] PCP - General 05/24/19 documented as of this encounter
--- OUTSIDE RECORDS SUMMARY | 2024-08-16 14:28 | XMS_ITS ---
Author Organization [facility] Address [address] [place] [address] Care Team Providers Care Addiction Counselor Name Role Phone LYNN NICOLE Primary Care Provider Rc Galindo Jr REASON FOR VISIT diarrhea Encounters Encounter Location Date Provider Diagnosis [facility] [address] [place] [phone] 02/18/2024 Rc Kathleen Jr Diarrhea, unspecified type R19.7 ASSESSMENTS Encounter Date Diagnosis Assessment Notes Treatment Notes Treatment Clinical Notes 02/18/2024 Diarrhea, unspecified type (ICD-10 - R19.7) PLAN OF TREATMENT Pending Test Test Name Order Date PANCREATIC ELASTASE 02/18/2024 FECAL FAT QUAL 02/18/2024 Next Appt Details Provider Name:Rc coronado Jr, 11/16/2024 11:00:00 AM, [address], [address], [place], [address],
--- OUTSIDE RECORDS SUMMARY | 2024-08-16 14:28 | XMS_ITS | Patient Health Record ---
[facility] [place] Address [address] [place] [address] Care Team Providers Care Auditing Clerk Name Role Phone Mitul Mccrary Primary Care Provider Rob jimmyluz Quyen De Leon Unavailable [phone] Allergies Allergen (clinical drug ingredient) Drug/Non Drug Allergy documented on EMR Reaction Allergy Type Onset Date Status sulfamethoxazole / trimethoprim Bactrim Unknown Drug Allergy Active phenytoin Dilantin Unknown Drug Allergy Active Adhesive Tape Unknown Drug Allergy Act alberta Reason For Referral No Information Medications Medication SIG (Take, Route, Frequency, Duration) Notes Start Date End Date Status Celecoxib 100 MG TAKE 1 CAPSULE TWICE DAILY Oral for 30 Active Extra Depth Diabetic Shoes with 3 Pair Custom heat-molded multi-density innersoles for 1 year Dx: Active Voltaren 1 % as directed External ly 4 times a day 08/05/2024 Active Extra Depth Orthopedic Shoes (1 Pair) with Customized Heat Molded Multidensity Innersoles (3 Pair) as directed Dx: NIDDM/Polyneuropathy (E11.42), Hammertoe Foot Deformity (M20.41,M20.42), Preulcerative Skin Lesion(s) (L85.1 10/15/2021 Active Lidocaine 5 % 1 application as nee ded Externally Three times a day for 30 days 06/13/2024 Active AFO-fixed . 1 . Wear daily for . 10/15/2021 Active Doxycycline Hyclate 100 MG 1 capsule Orally Twice a day for 10 day(s) 01/18/2019 Not-Taking Tradjenta Not-Taking Walking Boot/Pneumatic As directed Wear Daily for Until further notice 02/27/2020 Active Gabapentin 300 MG TK 1 C PO BID Oral f or 90 Not-Taking AFO-fixed . 1 . Wear daily for . 05/11/2020 Active Ammonium Lactate 12 % ASHUTOSH QAM AND QPM TO DRY SKIN ON FEET AND LEGS External for 30 Not-Taking Mupirocin 2 % 1 application Externally Once a day for 30 days Active Dicyclomine HCl 20 MG TK 1 T PO QID Oral for 30 Not-Taking Extra Depth Orthopedic Shoes (1 Pair) with Customized Heat Molded Multidensity Innersoles (3 Pair) as directed Dx: NIDDM/Polyneuropathy (E11.42), Hammertoe Foot Deformity (M20.41,M20.42), Preulcerative Skin Lesion(s) (L85.1 06/27/2020 Active Lidocaine 5 % 1 application as nee ded Externally Three times a day 06/15/2024 Active Azithromycin 250 MG TK 2 TS PO FOR 1 DAY THEN TK 1 T PO D FOR 4 DAYS Oral for 5 Not-Taking Estrogel 0.75 MG/1.25 GM (0.06%) ASHUTOSH 1 PUMP AA UTD Transdermal for 69 Not-Taking Trulicity 1.5 MG/0.5ML as directed Subcutaneous Active Ibandronate Sodium 150 MG TK 1 T PO ONCE A MONTH Oral for 90 Not-Taking vitamin D Not-Taking Lyrica 50 MG Orally Active PARoxetine HCl 40 MG TK 1 T PO QD Oral f or 30 Active Magnesium Active Calcitonin ([place]) 200 UNIT/ACT USE 1 SPRAY NASALLY QD. ALTERNATE NOSTRILS EACH DAY Nasal for 90 Not-Taking tiZANidine HCl Activ e Magnesium Oxide 400 MG 1 capsule as need ed Orally Once a day Not-Taking Metoprolol Succinate Active Diphenoxylate-Atropine 2.5-0.025 MG (Schedule V Drug) Oral for 30 Not-Taking oxyBUTYnin Chloride ER 15 MG TK 1 T PO BID Oral for 90 Active Amoxicillin 500 MG TK 4 CS PO 1 HOUR BEFORE DENTAL APPOINTMENT Oral for 3 Not-Takin g Omeprazole 40 MG TK 1 C PO BID Oral f or 30 Active Loperamide HCl 2 MG 1 tablet Orally 8 time(s) a day Not-Taking Spironolactone 50 MG TK 1 T PO BID Oral for 90 Active Vitamin D (Ergocalciferol) 73661 UNIT TK 1 C PO ONCE A WEEK Oral for 90 Not-Taking traMADol HCl 50 MG (Schedule IV Drug) T K 2 TS PO TID Oral for 30 Active Kvjyptvwbl-ADFH-Uwcadlrc 50-325-40 MG 1 capsule as needed Orally every 4 hrs Not-Taking Walking Boot/Pneumatic As directed Wear Daily for Until further notice 10/14/2016 Active Lotrimin AF 1 % 1 application to affected area Externally Twice a day Not-Takin g Colcrys 0.6 MG 1 tablet Orally Once a day for 10 days 08/30/2018 Not-Taking Ibuprofen 800 MG 1 tablet with food o r milk as needed Orally Three times a day for 10 days 08/30/2018 Not-Taking Immunizations Vaccine Route Administration Date Status Comme nts Influenza Unknown 04/06/2018 Administered Influenza Unknown 04/06/2019 Administered Influenza Unknown 05/11/2020 Administered Social History Tobacco Use: Social History Observation Description Date Details (start date - stop date) Former Smoker NA - NA Tobacco Use/Smoking Question Answer Notes Are you a: former smoker Additional Findings: Tobacco Non-User Current no n-smoker Alcohol Screen Question Answer Notes Did you have a drink containing alcohol in the p ast year? No Points 0 Interpretation Negative Tobacco use other than smoking: Question Answer Notes Are you an other tobacco user? 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) Active confirmed Problem Polyneuropathy due to type 2 diabetes mellitus (790996287) Type 2 diabetes mellitus with diabetic polyneuropathy (E11.42) Active confirmed Problem Primary gout (93443149) Idiopathic gout, right ankle and foot (M10.071) Active confirmed Problem 902843789 Type 2 diabetes mellitus with foot ulcer (E11.621) Active confirmed Problem 832839622 Hammertoe of lef t foot (M20.42) Active confirmed Problem 146243090 Hammertoe of right foot (M20.41) Active confirmed Problem 82137879260027737 Atherosclerosi s of artery of both lower extremities (I70.203) Active confirmed Problem 614376482 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) Active confirmed Problem 1314976068840047 Gouty arthritis of left foot (M10.9) Active confirmed Problem 5695721213324321 Arthritis of le ft ankle (M19.072) Active confirmed Problem Neuropathic ulce r of left heel, limited to breakdown of skin (L97.421) Active confirmed Response to treatment Vital Signs Blood pressure diastolic 75 mm Hg 06/13/2024 Height 5 ft 3 in in 06/13/2024 Blood pressure systolic 130 mm Hg 06/13/2024 Weight 198 lbs 06/13/2024 BMI 35.07 kg/m2 06/13/2024 Encounters Encounter Location Date Provider Diagnosis [address] [address] 05/25/2024 Quyen De Leon Non-pressure chronic ulcer of left heel and midfoot with fat layer exposed L97.422 ; Type 2 diabetes mellitus with foot ulcer E11.621 and Atherosclerosis of artery of both lower extremities I70.[address] [address] 06/13/2024 Quyen Haley Non-pressure chronic ulcer of left heel and midfoot with fat layer exposed L97.422 ; Atherosclerosis of artery of both lower extremities I70.203 and Ingrown nail L60.[address] [address] 08/04/2024 Quyen De Leon Arthritis of left ankle M19.072 and Lower extremity edema R60.[address] [address] 06/09/2024 Quyen De Leon [address] [address] 06/15/2024 Quyen De Leon [address] [address] 06/22/2024 Quyen De Leon Ingrown nail L60.[address] [place] [address] 08/15/2024 Quyen Haley Assessments Encounter Date Diagnosis (ICD Code) Assessment Notes Treatment Notes Treatment Clinical Notes Section Notes 05/25/2024 Non-pressure chronic ulcer of left heel and midfoot with fat layer exposed (ICD-10 - L97.422) 05/25/2024 Type 2 diabetes mellitus with foot ulcer (ICD-10 - E11.621) 06/13/2024 Atherosclerosis of artery of both lower extremities (ICD-10 - I70.203) 06/22/2024 Ingrown nail (ICD-10 - L60.0) 08/04/2024 Arthritis of left ankle (ICD-10 - M19.072) 08/04/2024 Lower extremity edema (ICD-10 - R60.0) 06/13/2024 Non-pressure chronic ulcer of left heel and midfoot with fat layer exposed (ICD-10 - L97.422) 06/13/2024 Ingrown nail (ICD-10 - L60.0) 05/25/2024 Atherosclerosis of artery of both lower extremities (ICD-10 - I70.203) 05/25/2024 Other Patient Educated with: WOUND CARE INSTRUCTIONS. pdf (WOUND CARE INSTRUCTIONS. pdf) 06/13/2024 Other Plan Of Treatment Pending Test Test Name Order Date Ultrasound : Legs, bilateral 11/04/2016 *Uric Acid, Serum 08/30/2018 *Uric Acid, Serum 01/18/2019 *CBC With Differential/Platelet 01/19/20 19 *Sedimentation Rate-Westergren 9 C-Reactive Protein, Quant 08/30/2018 C-Reactive Protein, Quant 01/18/2019 ESR 01/18/2019 X ray : Foot, left 3V 01/18/2019 X ray : Foot, left 3V 04/13/2020 X ray : Foot, left 3V 05/11/2020 X ray : Foot, right 3V 05/11/2020 X ray : Foot, right 3V 04/13/2018 X ray : Foot, right 3V 04/13/2020 X ray : Foot, right 3V 02/27/2020 X ray : Foot, right 3V 03/23/2020 X ray : Foot, right 3V 08/30/2018 19938- Removal of Foreign Body, Subcut 0 11/25/2016 X ray : Ankle, right 3V 02/27/2020 Next Appt Details Provider Name:Quyen levy, 11/28/2024 03:30:00 PM, [address] [facility], [place], [address], Insurance Providers Payer Name Payer Address Payer Phone Subscriber Number Group Number Insured Name Patient Relationship to Insured Coverage Start Date Coverage End Date Medicare National Govt [facility] [address] [place] [address] [id number] PrechtlWanda Self - patient is the insured [facility] [address] [place] [address] [id number] PrecMitul kyle Spouse - patient is the spouse of the insured [employer] [address] [place] [address] [id number] PrecWanda kyle Self - patient is the insured Medical (General) History Medical History History ICD Code Anemia Anxiety Arthritis Back,Hip,and Knee pain Broken bones Headaches Migraines Hiatal hernia High blood pressure Kidney disease Poor circulation Reflux Scarlet fever Vascular phlebitis (clots) Measles Mumps Chicken pox Joint implants/screws Transfusions Diabetes mellitus Surgical History Surgery Date(Month/Year) hip surgery 2002, 2003, 2004 knee surgery 2008 Leg sx (RT) 2000s Back sx 03/10/2016 Hospitalization History Reason Date(Month/Year) [facility] [place] Bladder infection medication 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
--- OUTSIDE RECORDS SUMMARY | 2024-08-16 14:28 | XMS_ITS | Encounter Summary ---
Author Organization [facility] Address [address] [place] [address] Phone Care Team Providers Care Panel Machine Operator Name Role Phone Mitul Garcia POLITICAL REPORTER Primary Care Provider [phone] Encounter Details Date Type Department Care Team ([facility] Contact Info) Description 01/08/2023 Documentation Only [facility] [address] [place] [address] Italia Rivers [address] [place] [address] Social History Tobacco Use Types Packs/Day Years Used Date Smoking Tobacco: Former Cigarettes Q uit: 07/20/1963 Comments Unknown Sex and Gender Information Value Date Recorded Sex Assigned at Not on file Legal Sex Female 4:34 PM EST Gender Identity Not on file Sexual Orientation Not on file documented as of this encounter Plan of Treatment Upcoming Encounters Date Type Department Care Team ([facility] Contact Info) Description 10/11/2024 9:50 AM EDT Office Visit [facility] [address] [place] [address] Sarbjit Palumbo MD [address] [place] [address] [address] [place]ías [place] [phone] documented as of this encounter Visit Diagnoses Not on filedocumented in this encounter Care Teams Panel Machine Operator Relationship Specialty Start Date End Date Mitul Garcia NP [address] [place] [address] PCP - General 05/24/19 documented as of this encounter
--- OUTSIDE RECORDS SUMMARY | 2024-08-16 14:28 | XMS_ITS ---
Author Organization [facility] Address [address] [place] [address] Care Team Providers Care Revenue Stamp Cutter Name Role Phone LYNN NICOLE Primary Care Provider Rc Galindo Jr Unavailable ALLERGIES Allergen (clinical drug ingredient) Drug/Non Drug Allergy documented on EMR Reaction Allergy Type Onset Date Status phenytoin Dilantin Unknown Drug Allergy Active sulfamethoxazole / trimethoprim Bactrim Unknown Drug Allergy Active plastic tape (uncoded) Unknown Allergy Active REASON FOR VISIT Patient presents today for diarrhea MEDICATIONS Medication SIG (Take, Route, Frequency, Duration) Notes Start Date End Date Status Colyte with Flavor Packs 240 GM As directed Orally Over the specified time. for 1 day(s) 05/13/2023 Active Diphenoxylate-Atropine 2.5-0.025 MG TAKE 1 TABLET BY MOUTH EVERY 6 HOURS NEEDED for 30 days 02/18/2024 Active DULoxetine HCl 20 MG Oral for 16 Active Pregabalin 100 MG Oral for 90 Active Creon [address]51 UNIT 2 capsules with m eals and 1 capsule with snacks Orally for 30 days 03/17/2024 Active Calcium Citrate Acti ve traMADol HCl Active Pravastatin Sodium A ctive Vitamin D3 Active Myrbetriq Active Lyrica 50 MG 1 capsule Orally Thr ee times a day Active Omeprazole 20 MG 1 capsule Orally Onc e a day Active Qgaeziepss-QKPX-Ayidrpdh Active Metoprolol Succinate ER 25 MG 1 tablet Orally Once a day Active Trulicity 1.5 MG/0.5ML as directed Subcu taneous once a week Active Spironolactone 50 MG 1 tablet Orally Twi ce a day Active PARoxetine HCl 40 MG 1 tablet in the mor maria luisa Orally Once a day Active Magnesium Oxide 400 MG 4-5 tablet Orally daily Active PROBLEMS Problem Type ICD Code Onset Dates Problem Status W/U Status Risk SNOMED Code Notes Problem Exocrine pancreatic insufficiency (K86.81) Active confirmed 11616370 Problem Irritable bowel syndrome, unspecified type (K58.9) Active confirmed 89310093 VITAL SIGNS BMI 34.01 kg/m2 08/11/2024 Blood pressure systolic 00 mm Hg 08/11/19 25 Blood pressure diastolic 000 mm Hg 025 Height 63 in 08/11/2024 Weight 192 lbs 08/11/2024 Encounters Encounter Location Date Provider Diagnosis [facility] [address] [place] [address] 08/11/2024 Rc Kathleen Jr Gastroesophageal reflux disease K21.9 ; Exocrine pancreatic insufficiency K86.81 and Irritable bowel syndrome, unspecified type K58.9 ASSESSMENTS Encounter Date Diagnosis Assessment Notes Treatment Notes Treatment Clinical Notes 08/11/2024 Gastroesophageal ref lux disease (ICD-10 - K21.9) 08/11/2024 Exocrine pancreatic insufficiency (ICD-10 - K86.81) Irritable bowel syndrome material was printed 08/11/2024 Irritable bowel syndrome, unspecified type (ICD-10 - K58.9) PLAN OF TREATMENT Treatment Notes Assessment Notes Exocrine pancreatic insufficiency Irrita ble bowel syndrome material was printed Next Appt Details Follow Up: 1 Year, Reason: Provider Name:Rc coronado Jr, 11/16/2024 11:00:00 AM, [address], [address], [place], [address],
[2024-08-16 16:17] LABS: Appearance Urine Clear; Color Urine Yellow; Glucose Urine UA Negative (Negative); Leukocyte Esterase Urine Moderate (2+) (Negative); Nitrite Urine Negative (Negative); Specific Gravity - Urine <= 1.005 (1.005-1.025); UMIC TRIGGER UACC YES; Urine Blood Negative (Negative); Urine Ketones Negative (Negative); Urine Protein Negative (Neg-Trace)
[2024-08-16 16:24] LABS: MANUAL DIFF FLAG NO
[2024-08-16 16:30] LABS: Basophils Absolute Auto 0.1 X10*3/uL (0.0-0.2); Basophils Percent Auto 0.5 % (0-2); Eosinophils Absolute Auto 0.2 X10*3/uL (0.0-0.4); Eosinophils Percent Auto 2.1 % (0-4); Lymphocytes Absolute Auto 1.3 X10*3/uL (1.2-4.9); Lymphocytes Percent Auto 13.2 % (20-40); Mean Corpuscular HGB Conc 33.3 g/dl (31.0-35.0); Mean Corpuscular Hemoglobin 29.1 pg (27.0-33.0); Mean Corpuscular Volume 87.3 fL (80.0-98.0); Mean Platelet Volume 11.1 fL (9.4-12.3); Monocytes Absolute Auto 0.7 X10*3/uL (0.1-1.2); Monocytes Percent Auto 6.8 % (2-11); Neutrophils Absolute Auto 7.7 x10*3/uL (2.0-8.3); Neutrophils Percent Auto 76.4 % (45-73); Platelet Count 452 X10*3/uL (160-400); Red Blood Count 3.78 X10*6/uL (4.20-5.50); Red Cell Distribution Width 13.1 % (11.0-16.0); White Blood Count 10.1 X10*3/uL (4.8-10.8)
[2024-08-16 16:33] LABS: Bacteria Urine Trace (None Seen); Hyaline Casts Urine 0-2 /LPF (0-2); Squamous Epithelial Cell Urine 0-2 /HPF (0-2); UACC Culture Trigger YES
[2024-08-16 16:34] LABS: RBC Urine 0-2 /HPF (0-2)
[2024-08-16 17:00] LABS: Creatinine Urine 27.76 mg/dL; Microalbum/Creatinine Ratio Ur 50.4 ug/mg cr (<30)
[2024-08-16 17:00] LABS: Alanine Aminotransferase 7 U/L (0-31); Albumin Level 3.6 g/dL (3.5-5.0); Alkaline Phosphatase 65 U/L (39-117); Anion Gap 14 (12-20); Aspartate Amino Transferase 24 U/L (5-31); Bilirubin Total 0.2 mg/dL (0.0-1.0); Blood Urea Nitrogen 19 mg/dL (9-16); Calcium 8.9 mg/dL (8.4-10.2); Carbon Dioxide 26 mmol/L (22-29); Chloride 99 mmol/L (96-108); Cholesterol 140 mg/dL (<200); Estimated Glomerular Filt Rate 38; Glucose Fasting 78 mg/dL (60-99); HDL Cholesterol 38 mg/dL (>40); LDL Cholesterol Calculated 66 mg/dL (<100); Potassium 4.3 mmol/L (3.3-5.1); Sodium 135 mmol/L (135-145); Total Protein 7.3 g/dL (6.5-8.0); Triglycerides 183 mg/dL (<150)
[2024-08-16 17:14] LABS: Folate 4.8 ng/mL (> or = 4.0); Vitamin B12 989 pg/mL (200-900)
== END 2024-08-16 13:27 | disposition home or self-care (01) ==
LOC: HO.HMGCLDS 13:26
PROVIDERS: PCP Nurse Practitioner Family; Visit Provider Nurse Practitioner Family
DX: E11.22 Type 2 diabetes mellitus with diabetic chronic kidney disease (principal); E53.8 Deficiency of other specified B group vitamins
CPT/HCPCS: 36415; 80053; 80061; 81001; 82043; 82570; 82607; 82746; 84443; 85025; 87086

== ENCOUNTER 2024-10-04 15:17 | Outpatient (AMB) | payer MEDICARE, BC, OTHER, MEDICAID, SELFPAY ==
[2024-10-04 15:28] VITALS: BP 112/74; PULSE 67; TEMP 37.2; O2SAT 95
--- NOTE | 2024-10-04 15:28 | A.OFFPC_ITS ---
Vital Signs 10/04/24 15:28 Height 5 ft 2 in BMI Reason not done Patient refused/unable BP 112/74 Blood Pressure Location Lt brachial Position Sitting Pulse 67 Pulse Source Pulse Oximeter Temp 99.0 F Temp Source Oral Pulse Oximetry (%) 95 Intake Visit Reasons: 4m follow up DM Intake Note: pt is here 4 month DM follow up Safety Fire Boss Required: No Accompanied by: Self / Same As Patient Allergies adhesive tape Allergy (Severe, Verified 10/04/24 16:12) Blister from adhesive bandages and rash from plastic tape phenytoin [From Dilantin] Allergy (Severe, Verified 10/04/24 16:12) Rash sulfamethoxazole [From BACTRIM] Allergy (Unknown, Verified 10/04/24 16:12) UNKNOWN trimethoprim [From BACTRIM] Allergy (Unknown, Verified 10/04/24 16:12) UNKNOWN Medication List - Last Reconciled 10/04/24 by Mitul Garcia, STEWARD DISHWASHER-BC [afo right foot wear daily] albuterol sulfate 90 mcg/actuation 2 puffs inhalation Q6H PRN 30 days ammonium lactate 12% 1 appl topical BID ascorbic acid (vitamin C) 1 g PO DAILY 90 days aspirin 81 mg PO DAILY baclofen 5 mg PO DAILY PRN 12 days blood sugar diagnostic As directed blood sugar diagnostic (Accu-Chek Guide test strips) three times a day blood-glucose meter (Accu-Chek Guide Glucose Meter) check blood sugar three times daily krqmyrovsw-mwyikysnxgjwn-dtpk 50-325-40 mg 1 tab PO ONCE PRN 30 days calcium citrate 500 mg (2 x 250 mg calcium) PO BID cholecalciferol (vitamin D3) 50 mcg PO DAILY cranberry fruit 400 mg PO BID 90 days [Diabetic shoes & 3 pair inserts as directed] diaper,brief,adult,disposable (Briefs, Adult-Extra Large) Overnight pull up briefs (extra absorbant), size XL, uses 3 per day diclofenac sodium 1% (Voltaren Arthritis Pain) 4 grams topical QID PRN diphenoxylate-atropine 2.5-0.025 mg 1 tab PO QID [disposable bedpads Uses 2 daily] dulaglutide 3 mg (0.5 mL) subcut QWEEK 90 days duloxetine 20 mg PO DAILY 90 days incontinence pad, liner, disp large, superabsorbant, uses 4 per day lancets (Unistik 2 Normal Lancet) Test blood sugar twice a day lancets (Safety Lancets) Test blood sugar twice a day-requires safety lancets rzkplo-phfxlush-toqoenu 24,000-76,000 -120,000 unit (Creon) 2 caps PO TID loperamide (Imodium A-D) 2 mg PO Q6H PRN 30 days magnesium L-lactate ER 336 mg PO BID mecobalamin (vitamin B12) 1,000 mcg sublingual DAILY methenamine hippurate 1 g PO DAILY 90 days metoprolol succinate ER 25 mg PO BID 90 days Myrbetriq ER (mirabegron) 50 mg PO DAILY 90 days NS omeprazole 40 mg PO BID paroxetine HCl 40 mg PO QAM pravastatin 20 mg PO DAILY pregabalin 100 mg PO TID 30 days spironolactone 50 mg PO BID tramadol 50 mg PO BID PRN walker front with wheels only Tobacco use date assessed: 10/04/24 Dental Screening Dental Screen Date: 06/07/24 HPI 4m follow up DM HPI Details Chief Complaint Follow-up for management of diabetes and associated conditions. History of Present Illness The patient is a 78-year-old female presenting with a follow-up for diabetes management. Her diabetes is currently monitored with an A1c level of 6.1. She maintains regular eye exams, as well as follow-ups with a speed belt sander tender and a urologist as part of her routine care. The patient experiences chronic bilateral extremity weakness and faces challenges related to peripheral neuropathy. She uses a walker and wheelchair . Through the use of monofilament testing, she has demonstrated stability in her neuropathy condition over the years. Pt does see a vascular specialist. Dusky toes noted bilat, though + sensation with cap refill She does not report any acute respiratory or systemic symptoms. Her general condition and pulmonary findings remain consistent with her established baseline. Social History - The patient uses a wheelchair for [facility] due to bilateral extremity weakness. Health Maintenance - Regular ophthalmological exams for fareed betic retinopathy monitoring. - Routine consultations with a nephrolog ist for chronic kidney disease management. - Ongoing follow-up with a urologist. - Annual evaluations by a vascular speci joseph. Review of Systems - Respiratory: Denies increased shortnes s of breath. - Cardiovascular: Denies chest pain. - Gastrointestinal: Denies abdominal anneliese n. - Constitutional: Denies fevers and chil ls. Physical Exam General: Cooperative, healthy appearing, comfortable, no acute distress and well developed, morbidly obese Orientation: Patient oriented x3 Limitations: Patient is usually in a wheelchair, weakness to bilateral extremities Head: Normal to inspection Ears: Hearing grossly normal bilaterally Nose: Normal external nose present Face and sinus: Normal facial exam Eyes: Appearance normal, both eyes and all related structures Neck: Normal visual inspection and Yes full ROM Respiratory: Normal respiratory effort and able to speak in complete sentences. Clear to auscultation bilaterally with very faint crackles at bilateral bases Cardiovascular: Regular rate and rhythm. Normal S1 and S2 GI: Normal to inspection. Soft to palpation and nontender Skin: Dusky colored distal feet, toes mostly, capillary refill present Neuro: Patient oriented x3, history of neuropathy to bilateral extremities Extremities: Weak DP noted, dusky colored distal feet, toes mostly, capillary refill present, trace edema to BLE Results - Labs: A1c level of 6.1. Plan The patient's diabetes will be managed with continued monitoring of her A1c levels. Collaborative care with her speed belt sander tender and urologist is maintained to address her chronic kidney disease. Neuropathy will be monitored, with the occasional use of monofilament testing. Her vascular health will continue under the care of her specialist to monitor potential ischemic changes. Routine labs have been ordered for follow-up. Discussion Notes I reviewed with the patient the importance of continuous monitoring of her diabetes, emphasizing the role of her current A1c levels in guiding treatment. We discussed her speed belt sander tender's involvement and the need for ongoing urological assessments as part of her comorbid condition management. The potential implications of her vascular condition were also reviewed, ensuring she understands the need for ongoing specialist assessments to prevent complications. Follow-up labs and consultations were addressed as part of her routine care package. Patient Instructions - Continue monitoring blood sugar levels as advised. - Attend regular appointments with your speed belt sander tender and urologist. - Maintain a schedule for routine eye ex ams. - Follow up with your vascular specialis t as recommended. - Report any new symptoms such as increa sed weakness or discoloration changes. [facility] Medical History Hyperhidrosis Cataract AVN (avascular necrosis of bone) Type 2 diabetes mellitus with diabetic polyneuropathy Hiatal hernia IBS (irritable bowel syndrome) GERD (gastroesophageal reflux disease) On beta jody at home Restrictive lung disease Obesity (BMI 30-39.9) GOPAL on CPAP Anemia B12 deficiency Vitamin D deficiency Breast pain, left Chronic kidney disease, stage 3 Decreased pedal pulses Diabetes mellitus with complication Retinopathy Celiac disease Right rotator cuff tear Osteoarthritis Seizures Gout Neuropathy Gitelman disease Essential hypertension Age-related osteoporosis without current pathological fracture Type 2 diabetes mellitus with other diabetic kidney complication Proteinuria Dyslipidemia Type 2 diabetes mellitus with chronic kidney disease Adult BMI 30.0-30.9 kg/sq m Surgical History History of esophagogastroduodenoscopy (EGD) S/P cardiac catheterization History of carpal tunnel surgery of right wrist History of back surgery Hx of colonoscopy History of total left knee replacement History of left shoulder replacement History of revision of total replacement of right hip joint Hx of fracture of fibula Family History Father No problems noted. Mother Cancer Diabetes Daughter Substance use disorder Mental health disorder Social History Household Members: Spouse and Children Household Members Other:: 2 daughter and their children Housing: House Are you a primary direct care provider to a significant other at home: No Do you presently have visiting nurse or other home services: Yes (1 x week [employer]HRO[employer]) Alcohol intake: unknown Patient Tobacco Use Status: Former Tobacco user Tobacco use type: Cigarette Years Smoked: 1964 e-Cigarette/Vaping Use: Never Used Second Hand Smoke Exposure: Yes Advance Directives Date on File: 08/26/22 service: No Current occupational status: retired Cognitive needs: No Hearing needs: No Vision needs: Yes Questionnaire Thrive Questionnaire Date Thrive assessed: 02/02/24 GUY-7 AMB Questionnaire GUY-7 Date GUY - 7 assessed: 02/02/24 Source: Developed by Drs. Stephen Porter, Susi Franco, Fredi Hewitt and colleagues, with an educational salina from [employer]. Physical exam (Primary Care) Vital Signs: Last Vital Signs Temp 99.0 F 10/04/24 15:28 Pulse 67 10/04/24 15:28 BP 112/74 10/04/24 15:28 Pulse Ox 95 10/04/24 15:28 Tobacco/Smoking Status: Tobacco use Status Tobacco use date assessed 10/04/24 10/04/24 15:36 Patient Tobacco Use Status Former Tobacco user 10/04/24 15:36 Tobacco use type Cigarette 10/04/24 15:36 e-Cigarette/Vaping Use Never Used 10/04/24 15:36 Thrive Assessment: Date of Thrive Assessment Date Thrive assessed 02/02/24 10/04/24 15:36 Coding Level of Care Code Est Pt Level 3 (55285) Diagnoses Diabetes E11.9 Assessment & Plan Assessment & Plan (1) Diabetes: Code(s): E11.9 - Type 2 diabetes mellitus without complications Category: Medical Plan . Orders: Orders [facility]. Panel Fast Today E11.9 - Type 2 diabetes mellitus without complications Lipid Panel Today E11.9 - Type 2 diabetes mellitus without complications Complete Blood Count Auto Diff Today E11.9 - Type 2 diabetes mellitus without complications TSH reflex Free T4 Today E11.9 - Type 2 diabetes mellitus without complications UA CC w/rflx Micro + Cult Today E11.9 - Type 2 diabetes mellitus without complications Medications: New ammonium lactate 12% 1 appl topical BID 140 grams 1RF
--- OUTSIDE RECORDS SUMMARY | 2024-10-04 18:11 | XMS_ITS | Encounter Summary ---
Author Organization [facility] Address [address] [place] [address] Phone Care Team Providers Care Emu Farmer Name Role Phone CharlesdemetriusMitul NP Primary Care Provider [phone] Reason for Visit * Reason Comments Med Refill Encounter Details Date Type Department Care Team (Late Contact Info) Description 06/24/2022 Refill [facility] [address] [place] [address] Balaji Nascimento MD [address] [place] [address] [place] [place] [place] [address] Social History Tobacco Use Types [...] Upcoming Encounters Date Type Department Care Team ([facility] Contact Info) Description 10/11/2024 9:50 AM EDT Office Visit [facility] [address] [place] [address] Sarbjit Palumbo MD [address] [place] [address] documented as of this encounter Visit Diagnoses Not on filedocumented in this encounter Care Teams Emu Farmer Relationship Specialty Start Date End Date Mitul Garcia NP [address] [place] [address] PCP - General 05/24/19 documented as of this encounter
--- OUTSIDE RECORDS SUMMARY | 2024-10-04 18:11 | XMS_ITS | Encounter Summary ---
Author Organization [facility] Address [address] [place] [address] Phone Care Team Providers Care Filtration Plant Mechanic Name Role Phone CharlesdemetriusMitul NP Primary Care Provider [phone] Reason for Visit * Reason Comments Med Refill Encounter Details Date Type Department Care Team (Late Contact Info) Description 07/01/2022 Refill [facility] [address] [place] [address] Balaji Nascimento MD [address] [place] [address] [place] [place] [address] Social History Tobacco Use Types [...] Office Visit [facility] [address] [place] [address] Sarbjit Palumbo MD [address] [place] [address] documented as of this encounter Visit Diagnoses Not on filedocumented in this encounter Care Teams Filtration Plant Mechanic Relationship Specialty Start Date End Date Mitul Garcia NP [address] [place] [address] PCP - General 05/24/19 documented as of this encounter
--- OUTSIDE RECORDS SUMMARY | 2024-10-04 18:11 | XMS_ITS ---
Author Organization [facility] Address [address] [place] [address] Care Team Providers Care Recreational Counselor Name Role Phone Mitul Mccrary Primary Care Provider Quyen Moreno Unavailable [phone] REASON FOR VISIT Lidocaine (5 % Ointment) Medications Medication SIG (Take, Route, Frequency, Duration) Notes Start Date End Date Status Lidocaine 5 % 1 application as nee ded Externally Three times a day for 30 days 06/13/2024 Ac tive Encounters Encounter Location Date Provider Diagnosis [facility] [address] [place] [address] 06/22/2024 Quyen De Leon Ingrown nail L60.0 [...] Provider Name:Quyen levy, 11/28/2024 03:30:00 PM, [address] [place], [address], Progress Notes * Wanda THOMPSON MDOB: (78 yo F)Acc No.[id number]:06/22/2024 Patient:?Wanda THOMPSON :1945???Age:78 Y???Sex:Female Address:[address] [place] [address], [address] * Refills? Refill Lidocaine Ointment, 5 %, Externally, 60 Gram, 1 application as needed, Three times a day, 30 days, Refills=0 * true * Date:? Generated for Wilfredo serrato/Taj/Yoelitting on:?10/04/2024 06:11 PM EDT
--- OUTSIDE RECORDS SUMMARY | 2024-10-04 18:12 | XMS_ITS | Encounter Summary ---
Author Organization [facility] [place], Address [address] [place] [address] Phone Care Team Providers Care Shrink Pit Operator Name Role Phone Mitul Garcia NP Primary Care Provider [phone] Encounter Details Date Type Department Care Team (Late Contact Info) Description 01/08/2024 Documentation Only [facility] [address] [place] [address] [place], [place] [address] [place] [address] Social History Tobacco Use Types [...] Upcoming Encounters Date Type Department Care Team ([facility] Contact Info) Description 10/11/2024 9:50 AM EDT Office Visit [facility] [address] [place] [address] Sarbjit Palumbo MD [address] [place] [place] [phone] documented as of this encounter Visit Diagnoses Not on filedocumented in this encounter Care Teams Shrink Pit Operator Relationship Specialty Start Date End Date Mitul Garcia NP [address] [place] [address] PCP - General 05/24/19 documented as of this encounter
--- OUTSIDE RECORDS SUMMARY | 2024-10-04 18:12 | XMS_ITS | Encounter Summary ---
Author Organization [facility] [place], Address [address] [place] [address] Phone Care Team Providers Care Primary School Teacher Librarian Name Role Phone Mitul Garcia APPAREL TRIMMINGS SALES REPRESENTATIVE Primary Care Provider [phone] Encounter Details Date Type Department Care Team ([facility] Contact Info) Description 02/19/2024 Orders Only [facility] [address] [place] [address] Sarbjit Palumbo MD [address] [place] [address] [place] [place] [address] Gitelman syndrome Social History Tobacco [...] Care Team ([facility] Contact Info) Description 10/11/2024 9:50 AM EDT Office Visit [facility] [address] [place] [address] Sarbjit Palumbo MD [address] [place] [address] [place] [address] documented as of this encounter Visit Diagnoses Diagnosis Gitelman syndrome documented in this encounter Care Teams Primary School Teacher Librarian Relationship Specialty Start Date End Date Mitul Garcia NP [address] [place] [address] PCP - General 05/24/19 documented as of this encounter
--- OUTSIDE RECORDS SUMMARY | 2024-10-04 18:12 | XMS_ITS | Encounter Summary ---
Author Organization [facility] [place], Address [address] [place] [address] Phone Care Team Providers Care Electrical Power Station Technician Name Role Phone Mitul Garcia AREA SECRETARY Primary Care Provider [phone] Encounter Details Date Type Department Care Team ([facility] Contact Info) Description 05/13/2024 Orders Only [facility] [address] [place] [address] Sarbjit Palumbo MD [address] [place] [address] [place] [address] Gitelman syndrome Social History Tobacco [...] Upcoming Encounters Date Type Department Care Team ([facility] Contact Info) Description 10/11/2024 9:50 AM EDT Office Visit [facility] [address] [place] [address] Sarbjit Palumbo MD [address] [place] [address] [place] [address] documented as of this encounter Visit Diagnoses Diagnosis Gitelman syndrome documented in this encounter Care Teams Electrical Power Station Technician Relationship Specialty Start Date End Date Mitul Garcia NP [address] [place] [address] PCP - General 05/24/19 documented as of this encounter
--- OUTSIDE RECORDS SUMMARY | 2024-10-04 18:12 | XMS_ITS | Encounter Summary ---
Author Organization [facility] Address [address] [place] [address] Phone Care Team Providers Care Miner Pick Name Role Phone Mitul Garcia PAEDIATRIC THORACIC PHYSICIAN Primary Care Provider [phone] Encounter Details Date Type Department Care Team ([facility] Contact Info) Description 07/29/2021 Documentation Only [facility] [address] [place] [address] Italia Rivers [address] [place] [address] Social History Tobacco Use Types Packs/Day Years Used Date Smoking Tobacco: Former Cigarettes Q uit: 07/20/1963 Comments Unknown Sex and Gender Information Value Date Recorded Sex Assigned at Not on file Legal Sex Female 4:34 PM EST Gender Identity Not on file Sexual Orientation Not on file documented as of this encounter Plan of Treatment Upcoming Encounters Date Type Department Care Team ([facility] Contact Info) Description 10/11/2024 9:50 AM EDT Office Visit [facility] [address] [place] [address] Sarbjit Palumbo MD [address] [place] [address] [place] [place]ías [place] [phone] documented as of this encounter Visit Diagnoses Not on filedocumented in this encounter Care Teams Miner Pick Relationship Specialty Start Date End Date Mitul Garcia NP [address] [place] [address] PCP - General 05/24/19 documented as of this encounter
--- OUTSIDE RECORDS SUMMARY | 2024-10-04 18:12 | XMS_ITS | Patient Health Record ---
Author Organization [facility] Address [address] [place] [address] Care Team Providers Care Green Jobs Trainer Name Role Phone MODESTAEDUARDO LYNN Primary Care Provider Giorgoi Kathleen Jr Rc Unavailable Allergies Allergen (clinical drug ingredient) Drug/Non Drug Allergy documented on EMR Reaction Allergy Type Onset Date Status phenytoin Dilantin Unknown Drug Allergy Active Bactrim Unknown Drug Allergy Active plastic tape (uncoded) Unknown Allergy Active Results Component Value Reference Range Notes Pancreatic Elastase-1 Reviewed date:03/17/2024 08:54:42 AM Interpretation: Performing Lab:[address] [address] Notes/Report: Pancreatic Elastase-1 124 Adult and Pediatric Reference Ranges for Pancreatic Elastase-1: Normal: >200 mcg/g Moderate Pancreatic Insufficiency: 100-200 mcg/g Severe Pancreatic Insufficiency: <100 mcg/g Elastase-1 (E-1) assay results are expressed in mcg/g, which represent mcg E1/g feces. It is not necessary to interrupt enzyme substitution therapy. THIS TEST WAS PERFORMED AT: [facility] [facility] [address] [place] [address] RUSLAN GRYA MD,PHD,CELSA Fecal Fat Qualitative Reviewed date:03/17/2024 08:54:34 AM Interpretation: Performing Lab:[facility], [address] [place] [id number] Notes/Report: Fecal Fat Qualitative ABNORMAL NORMAL THIS TEST WAS PERFORMED AT: [facility] [facility] [place] [address] [place] [address] RUSLAN GRAY MD,PHD,CELSA Reason For Referral No Information Medications Medication [...] capsule Orally Onc e a day Active Nbbhzaqwht-HSCU-Mzpwihiz Active Myrbetriq Active Metoprolol Succinate ER 25 MG 1 tablet Orally Once a day Active Trulicity 1.5 MG/0.5ML as directed Subcu taneous once a week Active Creon 71393-17909 UNIT 2 capsules with m eals and 1 capsule with snacks Orally for 30 days 03/17/2024 Active Immunizations Vaccine Route Administration Date Status Comme nts Flu vaccine no Preserv 3 and > Unknown 04/04/2014 Admin istered Flu vaccine no Preserv 3 and > Unknown 06/05/2015 Admin istered Influenza Unknown 03/30/2018 Administered Influenza Unknown 04/19/2019 Administered Influenza Unknown 04/25/2020 Administered Influenza Unknown 03/20/2021 Administered Influenza Unknown 04/01/2022 Administered Problems Problem Type SNOMED Code ICD Code Onset Dates Problem Status W/U Status Risk Notes Problem 66233263 Hypertension (I10) Active confirmed Problem Gastroesophageal reflux disease (144427316) Gastroesophageal reflux disease (K21.9) Active confirmed Problem 846424900 Abnormal celiac antibody panel (R89.4) Active confirmed Problem 91267661 Diarrhea, unspecified type (R19.7) Active confirmed Problem 70755284 Irritable bowel syndrome, unspecified type (K58.9) Active confirmed Problem 13455815 Exocrine pancreatic insufficiency (K86.81) Active confirmed Problem 41942833 Irritable bowel syndrome with both constipation and diarrhea (K58.2) Active confirmed Problem 41738653724312 Colon cancer screening declined (Z53.20) Active confirmed Problem 423584667 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 Problem 747470145 Gastroesophageal reflux disease, unspecified whether esophagitis present (K21.9) Active confirmed Vital Signs Blood pressure diastolic 000 mm Hg 08/11/2024 Height 63 in 08/11/2024 Blood pressure systolic 00 mm Hg 08/11/2024 Weight 192 lbs 08/11/2024 BMI 34.01 kg/m2 08/11/2024 Encounters Encounter Location Date Provider Diagnosis [facility] [address] [place] [phone] 08/11/2024 Rc Kathleen Jr Gastroesophageal reflux disease K21.9 ; Exocrine pancreatic insufficiency K86.81 and Irritable bowel syndrome, unspecified type K58.9 [facility] [address] [place] [phone] 02/18/2024 Rc Kathleen Jr [facility] [address] [place] [phone] 02/18/2024 Rc Kathleen Jr Diarrhea, unspecified type R19.7 [facility] [address] [place] [phone] 03/17/2024 Rc Kathleen Jr Assessments Encounter Date Diagnosis (ICD Code) Assessment Notes Treatment Notes Treatment Clinical Notes Section Notes 08/11/2024 Gastroesophageal reflux disease (ICD-10 - K21.9) She appears sta ble at this time. We discussed her issues in detail today including exocrine pancreas insufficiency, gastroesophageal reflux disease, and year-old bowel syndrome. She will continue her present regimen. She will followup in 2025 later in the year to avoid coming out in sub zero temperatures. Today's visit was 35 minutes. 08/11/2024 Exocrine pancreatic insufficiency (ICD-10 - K86.81) Irritable bowel syndrome material was printed She appears stable at this time. We discussed her issues in detail today including exocrine pancreas insufficiency, gastroesophageal reflux disease, and year-old bowel syndrome. She will continue her present regimen. She will followup in 2025 later in the year to avoid coming out in sub zero temperatures. Today's visit was 35 minutes. 02/18/2024 Diarrhea, unspecified type (ICD-10 - R19.7) 08/11/2024 Irritable bowel syndrome, unspecified type (ICD-10 - K58.9) She appears sta ble at this time. We discussed her issues in detail today including exocrine pancreas insufficiency, gastroesophageal reflux disease, and year-old bowel syndrome. She will continue her present regimen. She will followup in 2025 later in the year to avoid coming out in sub zero temperatures. Today's visit was 35 minutes. Plan Of Treatment Pending Test Test Name Order Date STOOL WBC 07/23/2020 OVA & PARASITES (O&P) 04/10/2022 OVA & PARASITES (O&P) 07/23/2020 PANCREATIC ELASTASE 02/18/2024 FECAL FAT QUAL 02/18/2024 CT PELVIS NO CONTRAST 04/20/2013 STOOL WBC 04/10/2022 C DIFFICILE RFLX PCR 07/23/2020 C DIFFICILE RFLX PCR 04/10/2022 Stool Culture 07/23/2020 GI PANEL 04/10/2022 Future Test Test Name Order Date UPPER GI ENDOSCOPY 06/20/2021 COLONOSCOPY 10/29/2022 Next Appt Details Provider Name:Rc coronado Jr, 11/16/2024 11:00:00 AM, [address] [facility], [address], [place], [address], Insurance Providers Payer Name Payer Address Payer Phone Subscriber Number Group Number Insured Name Patient Relationship to Insured Coverage Start Date Coverage End Date MEDICARE OF [place] [address] [place] [address] [phone] [id number] PRECHTL, RANJAN Self - patient is the insured [facility] [address] [place], [place] [phone] [id number] PRECHTL, RANJAN Self - patient is the insured [employer] [address] [place] [address] [id number] PRECHTL, RANJAN Self - patient is the insured Medical (General) History Medical History History ICD Code Gastroesophageal reflux [...]
--- OUTSIDE RECORDS SUMMARY | 2024-10-04 18:12 | XMS_ITS | Encounter Summary ---
Author Organization [facility], Address [address] [place] [address] Phone Care Team Providers Care Solid Waste Engineer Name Role Phone Mitul Garcia MINIBUS DRIVER Primary Care Provider [phone] Reason for Visit * Reason Comments Med Refill Encounter Details Date Type Department Care Team (Late Contact Info) Description 10/17/2019 Refill [facility] [address] [place] [phone] Balaji Nascimento MD [address] [place] [place] [address] Social History Tobacco Use Types [...] Encounters Date Type Department Care Team ([facility] Contact Info) Description 10/11/2024 9:50 AM EDT Office Visit [facility], [address] [place] [address] Sarbjit Palumbo MD [address] [facility] [address] [place] [address] documented as of this encounter Visit Diagnoses Not on filedocumented in this encounter Care Teams Solid Waste Engineer Relationship Specialty Start Date End Date Mitul Garcia NP [address] [place] [address] PCP - General 05/24/19 documented as of this encounter
--- OUTSIDE RECORDS SUMMARY | 2024-10-04 18:12 | XMS_ITS | Encounter Summary ---
Author Organization [facility], Address [address] [place] [address] Phone Care Team Providers Care Teaching Dietitian Name Role Phone Mitul Garcia REGULATORY AFFAIRS INTERN Primary Care Provider [phone] Reason for Visit * Reason Comments Med Refill Encounter Details Date Type Department Care Team (Late Contact Info) Description 10/20/2019 Refill [facility] [address] [place] [phone] Balaji Nascimento MD [address] [place] [address] Social History Tobacco Use Types [...] Visit [facility], [address] [place] [address] Sarbjit Palumbo MD [address] [place] [address] documented as of this encounter Visit Diagnoses Not on filedocumented in this encounter Care Teams Teaching Dietitian Relationship Specialty Start Date End Date Mitul Garcia NP [address] [place] [address] PCP - General 05/24/19 documented as of this encounter
--- OUTSIDE RECORDS SUMMARY | 2024-10-04 18:12 | XMS_ITS | Encounter Summary ---
Author Organization [facility], Address [address] [place] [address] Phone Care Team Providers Care Open Hearth Door Liner Name Role Phone Mitul Garcia STRATEGIC PARTNERSHIP REPRESENTATIVE Primary Care Provider [phone] Encounter Details Date Type Department Care Team ([facility] Contact Info) Description 08/05/2024 Orders Only [facility] [address] [place] [address] Sarbjit Palumbo MD [address] [place] [address] [place] [place] [place] [address] Gitelman syndrome Social History Tobacco [...] Upcoming Encounters Date Type Department Care Team ([facility] Contact Info) Description 10/11/2024 9:50 AM EDT Office Visit [facility] [address] [place] [address] Sarbjit Palumbo MD [address] [place] [address] [place] [place] [address] documented as of this encounter Visit Diagnoses Diagnosis Gitelman syndrome documented in this encounter Care Teams Open Hearth Door Liner Relationship Specialty Start Date End Date Mitul Garcia NP [address] [place] [address] PCP - General 05/24/19 documented as of this encounter
--- OUTSIDE RECORDS SUMMARY | 2024-10-04 18:12 | XMS_ITS ---
Author Organization [facility] Address [address] [place] [address] Care Team Providers Care Lozenge Maker Helper Name Role Phone LYNN NICOLE Primary Care Provider Rc Galindo Jr Unavailable [phone] Allergies Allergen (clinical drug ingredient) Drug/Non Drug Allergy documented on EMR Reaction Allergy Type Onset Date Status phenytoin Dilantin Unknown Drug Allergy Active Bactrim Unknown Drug Allergy Active plastic tape (uncoded) Unknown Allergy Active REASON FOR VISIT Patient presents today for diarrhea Medications Medication SIG (Take, Route, Frequency, Duration) [...] 100 MG Oral for 90 Active Creon 17064-97448 UNIT 2 capsules with m eals and 1 capsule with snacks Orally for 30 days 03/17/2024 Active Calcium Citrate Acti ve traMADol HCl Active Pravastatin Sodium A ctive Vitamin D3 Active Myrbetriq Active Lyrica 50 MG 1 capsule Orally Thr ee times a day Active Omeprazole 20 MG 1 capsule Orally Onc e a day Active Rfioikswde-KBTW-Onnzgvie Active Metoprolol Succinate ER 25 MG 1 tablet Orally Once a day Active Trulicity 1.5 MG/0.5ML as directed Subcu taneous once a week Active Spironolactone 50 MG 1 tablet Orally Twi ce a day Active PARoxetine HCl 40 MG 1 tablet in the mor maria luisa Orally Once a day Active Magnesium Oxide 400 MG 4-5 tablet Orally daily Active Problems Problem Type SNOMED Code ICD Code Onset Dates Problem Status W/U Status Risk Notes Problem 52708022 Exocrine pancreatic insufficiency (K86.81) Active confirmed Problem 34875560 Irritable bowel syndrome, unspecified type (K58.9) Active confirmed Vital Signs Blood pressure systolic 00 mm Hg 08/11/19 25 Blood pressure diastolic 000 mm Hg 025 Height 63 in 08/11/2024 Weight 192 lbs 08/11/2024 BMI 34.01 kg/m2 08/11/2024 Encounters Encounter Location Date Provider Diagnosis [facility] [address] [place] [address] 08/11/2024 Rc Kathleen Jr Gastroesophageal reflux disease K21.9 ; Exocrine pancreatic insufficiency K86.81 and Irritable bowel syndrome, unspecified type K58.9 Assessments Encounter Date Diagnosis (ICD Code) Assessment [...] temperatures. Today's visit was 35 minutes. 08/11/2024 Irritable bowel syndrome, unspecified type (ICD-10 [...] visit was 35 minutes. Plan Of Treatment Treatment Notes Assessment Notes Exocrine pancreatic insufficiency Irrita ble bowel syndrome material was printed Next Appt Details Follow Up: 1 Year, Reason: Provider Name:Rc coronado , 11/16/2024 11:00:00 AM, [address], [address], [place], [address], Progress Notes * RANJAN THOMPSON MDOB: [birth year] (78 yo F)Acc No.[id number]:08/11/2024 Progress Notes Patient:?JAY RANJAN Junior Provider:?Rc Kathleen MD :1945???Age:78 Y???Sex:Female D ate:08/11/2024 Address:[address] [place], [place] [id number] Pcp:LYNN NICOLE Subjective: * Chief Complaints: * ???1. Patient presents today for diarrhea. * HPI: ???New symptom(s):? The patient is a [facility] 78-year-old woman seen today in followup. ?Since we saw her last, she has been diagnosed with exocrine pancreatic insufficiency. This was on the basis of stool testing for pancreatic elastase and fecal fat. She's currently taking pancreatic enzyme supplementation with Creon 24,000 2 tablets with meals and one with snacks. We reviewed this today. She's had marked improvement in her diarrheal symptoms and has absolutely decreased her intake of antidiarrheals. She reports weight and appetite have been stable. ?Colonoscopy in July 2023 showed diverticulosis, and biopsies show no colitis. We reviewed this today. ?Reflux symptoms appear well-controlled on her current regimen of omeprazole 20 mg daily. She has no complaints of dysphagia, hematemesis, or melena. Weight and appetite have been stable. * Medical History:?Gastroesoph ageal reflux disease, EGD 07/02/21, hiatal hernia, biopsies negative for celiac, H. pylori, and Montgomery's., Colonoscopy 08/07/10, cecal AVMs, diverticulosis, further screening optional based on age, Hiatal hernia, Seizure disorder, hypomagnesemia (? Gitelman's syndrome), History of C. difficile infection, Urosepsis, Hypertension, Diabetes mellitus, Chronic kidney disease stage IIIB, Osteoporosis, Irritable bowel syndrome. * Surgical History:?right hip replacement X4 , shoulder surgery , left knee replacement 03/17/2013, carpal tunnel release-both hands , finger surgery , femur right side , Spinal surgery . * Hospitalization/Major Diagno stic Procedure:?uti and pneumonia with sepsis 08/18/22. * Family History:?Father: dece ased, diagnosed with Heart disease.?Mother: .?Siblings: She has a brother with Celiac Disease..?Children: alive, diagnosed with Colon polyps.?8 sister(s) . .? Brothers had polyps Denies family hx of colon cancer or liver ds. * Social History:?Tobacco Use:?Tobacco Use/Smoking?Are you a: nonsmoker.?Drugs/Alcohol:?Alcohol Screen?Points: 1, Interpretation: Negative.?Miscellaneous:?Marital status: . Occupation: retired. * Medications:?Taking Spironol actone 50 MG Tablet 1 tablet Orally Twice a day, Taking PARoxetine HCl 40 MG Tablet 1 tablet in the morning Orally Once a day, Taking Magnesium Oxide 400 MG Tablet 4-5 tablet Orally daily, Taking Lyrica 50 MG Capsule 1 capsule Orally Three times a day, Taking Omeprazole 20 MG Capsule Delayed Release 1 capsule Orally Once a day, Taking Metoprolol Succinate ER 25 MG Tablet Extended Release 24 Hour 1 tablet Orally Once a day, Taking Trulicity 1.5 MG/0.5ML Solution Pen-injector as directed Subcutaneous once a week, Taking Uqoknaxocu-FCEE-Ykponatm , Taking Myrbetriq , Taking Pravastatin Sodium , Taking Vitamin D3 , Taking Calcium Citrate , Taking traMADol HCl , Taking DULoxetine HCl 20 MG Capsule Delayed Release Particles Oral , Taking Pregabalin 100 MG Capsule Oral , Taking Colyte with Flavor Packs 240 GM Solution Reconstituted As directed Orally Over the specified time., Taking Diphenoxylate-Atropine 2.5-0.025 MG Tablet TAKE 1 TABLET BY MOUTH EVERY 6 HOURS NEEDED , Taking Creon 52362-45428 UNIT Capsule Delayed Release Particles 2 capsules with meals and 1 capsule with snacks Orally , Discontinued MiraLax (colon prep) 17 GM/SCOOP Powder mixed with Gatorade or Crystal Light Orally begin at 5:00 p.m. the day before the procedure, Medication List reviewed and reconciled with the patient * Allergies:?Dilantin, plastic tape, Bactrim. Objective: * Vitals:?Wt: 192 lbs, Ht: 63 in, BMI:34.01 Index, BP: 00/000 mm Hg. * Examination: ???General Examination: ???On examination today, she appears well. Skin is anicteric. Lungs are clear. Heart shows regular rate and rhythm. Abdomen is soft without focal masses or tenderness. Extremities are without edema. Assessment: * Assessment: 1.?Exocrine pancreatic insuf ficiency - K86.81 (Primary)?2.?Gastroesophageal reflux disease - K21.9?3.?Irritable bowel syndrome, unspecified type - K58.9? She appears stable at this t marium. We discussed her issues in detail today including exocrine pancreas insufficiency, gastroesophageal reflux disease, and year-old bowel syndrome. She will continue her present regimen. She will followup in 2025 later in the year to avoid coming out in sub zero temperatures. Today's visit was 35 minutes. Plan: * Treatment: * Preventive Medicine:? ??Counseling:?Care goal follow-up plan:?Above Normal BMI Follow-up?Giving encouragement to exercise,?BMI management provided?Yes.? ??Urinary Incontinence:?Urinary Incontinence?Assessment:?Present,?Plan of care documented:?Yes,?Type of plan of care:?Lifestyle interventions.? * Follow Up:?1 Year * * Sign off status: Completed true * Provider:?Rc Kathleen MD Date:?0 08/11/2024 Generated for Wilfredo serrato/Taj/Noésmitting on:?10/04/2024 06:11 PM EDT History and Physical Notes * HPI (History of Present Illness) Category Sub-Category Detail Notes Category Not es New symptom(s) The patient is a pleasant 78-year-old woman seen today in followup. Since we saw her last, she has been diagnosed with exocrine pancreatic insufficiency. This was on the basis of stool testing for pancreatic elastase and fecal fat. She's currently taking pancreatic enzyme supplementation with Creon 24,000 2 tablets with meals and one with snacks. We reviewed this today. She's had marked improvement in her diarrheal symptoms and has absolutely decreased her intake of antidiarrheals. She reports weight and appetite have been stable. Colonoscopy in July 2023 showed diverticulosis, and biopsies show no colitis. We reviewed this today. Reflux symptoms appear well-controlled on her current regimen of omeprazole 20 mg daily. She has no complaints of dysphagia, hematemesis, or melena. Weight and appetite have been stable. Examination Category Sub-Category Detail Notes Category Not es General Examination On exami nation today, she appears well. Skin is anicteric. Lungs are clear. Heart shows regular rate and rhythm. Abdomen is soft without focal masses or tenderness. Extremities are without edema.
--- OUTSIDE RECORDS SUMMARY | 2024-10-04 18:12 | XMS_ITS | Encounter Summary ---
Author Organization [facility], Address [address] [place] [address] Phone Care Team Providers Care Cement Patcher Name Role Phone Mitul Garcia NP Primary Care Provider [phone] Encounter Details Date Type Department Care Team (Late Contact Info) Description 09/16/2023 Documentation Only [facility] [address] [place] [address] [place], [place] [address] [place] [address] Social History Tobacco Use Types [...] Visit [facility] [address] [place] [address] Sarbjit Palumbo MD [address] [place] [address] documented as of this encounter Visit Diagnoses Not on filedocumented in this encounter Care Teams Cement Patcher Relationship Specialty Start Date End Date Mitul Garcia NP [address] [place] [address] PCP - General 05/24/19 documented as of this encounter
--- OUTSIDE RECORDS SUMMARY | 2024-10-04 18:12 | XMS_ITS | Encounter Summary ---
Author Organization [facility], Address [address] [place] [address] Phone Care Team Providers Care Seaming Machine Operator Name Role Phone Mitul Garcia CUSTOMER SUPPORT REPRESENTATIVE Primary Care Provider [phone] Reason for Visit * Reason Comments Med Refill Encounter Details Date Type Department Care Team (Late Contact Info) Description 11/02/2019 Refill [facility] [address] [place] [phone] Balaji Nascimento MD [address] [place] [address] Social History Tobacco Use Types [...] Date Type Department Care Team ([facility] Contact Info) Description 10/11/2024 9:50 AM EDT Office Visit [facility], [address] [place] [address] Sarbjit Palumbo MD [address] [place] [address] documented as of this encounter Visit Diagnoses Not on filedocumented in this encounter Care Teams Seaming Machine Operator Relationship Specialty Start Date End Date Mitul Garcia NP [address] [place] [address] PCP - General 05/24/19 documented as of this encounter
--- OUTSIDE RECORDS SUMMARY | 2024-10-04 18:12 | XMS_ITS | Encounter Summary ---
Author Organization [facility], Address [address] [place] [address] Phone Care Team Providers Care Sorting And Folding Supervisor Name Role Phone Mitul Garcia STORE ADMINISTRATIVE ASSISTANT Primary Care Provider [phone] Encounter Details Date Type Department Care Team ([facility] Contact Info) Description 11/27/2023 Orders Only [facility] [address] [place] [address] Sarbjit Palumbo MD [address] [place] [address] [place] [address] Gitelman syndrome Social History Tobacco [...] Upcoming Encounters Date Type Department Care Team ([facility] Contact Info) Description 10/11/2024 9:50 AM EDT Office Visit [facility] [address] [place] [address] Sarbjit Palumbo MD [address] [place] [address] [place] [address] documented as of this encounter Visit Diagnoses Diagnosis Gitelman syndrome documented in this encounter Care Teams Sorting And Folding Supervisor Relationship Specialty Start Date End Date Mitul Garcia NP [address] [place] [address] PCP - General 05/24/19 documented as of this encounter
--- OUTSIDE RECORDS SUMMARY | 2024-10-04 18:12 | XMS_ITS | Clinical Summary ---
Author Organization [facility], Address [address] [place] [address] [place] [address] Phone Care Team Providers Care Study Hall Supervisor Name Role Phone Lynn Garcia NP Primary Care Provider [phone] Allergies Active Allergy Reactions Criticality Noted Date [...] hours 180 tablet 3 4 Active Creon 78236-54548 units capsule 2 capsules with meals and [...] Only [facility] [address] [place] [address] Sarbjit Palumbo MD Gitelman syndrome from Last 3 Months Immunizations Name Administration [...] Visit [facility], [address] [place] [phone] Sarbjit Palumbo MD [address] 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 DIAGNOSTIC USE: ??The [place] Diabetes Association (ADA) and the World Health [...] Supplement 1 Testing performed or reported by [facility], a Service of [facility], [address] [place] [address] Zach Engle MD, Drop Hammer Set Up Operator [facility]# [id number] Blood (Blood, Venous) 05/12/2023 12:23 PM EDT 05/12/2023 12:26 PM EDT us Balaji Nascimento MD LAB BLOOD ORDERABLES Final Res ult [facility] from Last 3 Months or Most Recently Relevant to Health Maintenance Insurance MEDICARE [facility] MEDICARE [facility] [place]ID [place] Care Teams Study Hall Supervisor Relationship Specialty Start Date End Date Lynn Garcia NP [address] [place], [place] [phone] PCP - General 05/24/19
--- OUTSIDE RECORDS SUMMARY | 2024-10-04 18:12 | XMS_ITS | Encounter Summary ---
Author Organization [facility] Address [address] [place] [address] Phone Care Team Providers Care Monitoring Coordinator Name Role Phone Mitul Garcia ORDNANCE HANDLER Primary Care Provider [phone] Encounter Details Date Type Department Care Team ([facility] Contact Info) Description 12/25/2022 Documentation Only [facility] [address] [place] [address] Italia Rivers [address] [place] [address] Social History Tobacco Use Types Packs/Day Years Used Date Smoking Tobacco: Former Cigarettes Q uit: 07/20/1963 Comments Unknown Sex and Gender Information Value Date Recorded Sex Assigned at Not on file Legal Sex Female 4:34 PM EST Gender Identity Not on file Sexual Orientation Not on file documented as of this encounter Plan of Treatment Upcoming Encounters Date Type Department Care Team ([facility] Contact Info) Description 10/11/2024 9:50 AM EDT Office Visit [facility] [address] [place] [address] Sarbjit Palumbo MD [address] [place] [address] [place] [place]ías [place] [phone] documented as of this encounter Visit Diagnoses Not on filedocumented in this encounter Care Teams Monitoring Coordinator Relationship Specialty Start Date End Date Mitul Garcia NP [address] [place] [address] PCP - General 05/24/19 documented as of this encounter
--- OUTSIDE RECORDS SUMMARY | 2024-10-04 18:12 | XMS_ITS ---
Author Organization [facility] Address [address] [place] [address] Care Team Providers Care Slate Worker Name Role Phone Mitul Mccrary Primary Care Provider Unav Quyen Hayden [phone] REASON FOR VISIT Voltaren RX Encounters Encounter Location Date Provider Diagnosis [address] [address] 08/15/2024 Quyen De Loen Plan Of Treatment Next Appt Details Provider Name:Quyen levy, 11/28/2024 03:30:00 PM, [address] [place], [address], Progress Notes * Wanda THOMPSON MDOB: (78 yo F)Acc No.[id number]:08/15/2024 Patient:?Wanda THOMPSON :1945???Age:78 Y???Sex:Female Address:[address] [place] [address], [address] * true * Date:? Generated for Printi ng/Fasilviag/eTransmitting on:?10/04/2024 06:11 PM EDT
--- OUTSIDE RECORDS SUMMARY | 2024-10-04 18:12 | XMS_ITS ---
Author Organization [facility] Address [address] [place] [address] Care Team Providers Care Project Program Manager Name Role Phone BONNIE LYNN Primary Care Provider Rc Galindo Jr REASON FOR VISIT diarrhea Encounters Encounter Location Date Provider Diagnosis [facility] [address] [facility] [address] [place] [address] 02/18/2024 Rc Kathleen Jr Diarrhea, unspecified type R19.7 Assessments Encounter Date Diagnosis (ICD Code) Assessment Notes Treatment Notes Treatment Clinical Notes Section Notes 02/18/2024 Diarrhea, unspecified type (ICD-10 - R19.7) Plan Of Treatment Pending Test Test Name Order Date PANCREATIC ELASTASE 02/18/2024 FECAL FAT QUAL 02/18/2024 Next Appt Details Provider Name:Rc coronado Jr, 11/16/2024 11:00:00 AM, [address], [address], [place], [address], Progress Notes * RANJAN THOMPSON MDOB: 5 (78 yo F)Acc No.[id number]:02/18/2024 Patient:?RANJAN THOMPSON :1945???Age:78 Y???Sex:Female Address:[address] [place] [address] Subjective: * Chief Complaints: * ???Diarrhea * Medical History:? * Surgical History:? * Hospitalization/Major Diagno stic Procedure:? * Medications:? Objective: Assessment: * Assessment: 1.?Diarrhea, unspecified typ e - R19.7? Plan: * Treatment: * Procedure Codes:? * true * Date:? Generated for Wilfredo serrato/Taj/Daphnie on:?10/04/2024 06:12 PM EDT
--- OUTSIDE RECORDS SUMMARY | 2024-10-04 18:12 | XMS_ITS ---
Author Organization [facility] Address [address] [facility] [address] [place] [address] Care Team Providers Care Manager Icu Name Role Phone JAVIERDARLENE LYNN Primary Care Provider Giorgio Kathleen Jr, Rc Michael REASON FOR VISIT labs Medications Medication SIG (Take, Route, Fr equency, Duration) Notes Start Date End Date Status Creon 92967-69442 UNIT 2 capsules with m eals and 1 capsule with snacks Orally for 30 days 03/17/2024 Active Encounters Encounter Location Date Provider Diagnosis [facility] [address] [place] [address] [place] [address] 03/17/2024 Rc Kathleen Jr Plan Of Treatment Medication Medication Name Sig Start Date Stop Date Notes Creon 04351-[address]889 UNIT 2 capsules with m eals and 1 capsule with snacks Orally for 30 days 03/17/2024 Next Appt Details Provider Name:Rc coronado Jr, 11/16/2024 11:00:00 AM, [address] [place] [address], [address], [place], [address], Progress Notes * RANJAN THOMPSON MDOB: 5 (78 yo F)Acc No.[id number]:03/17/2024 Patient:?RANJAN THOMPSON :1945???Age:78 Y???Sex:Female Address:[address] [place] [address] * Refills? Start Creon Capsule Delayed Release Particles, [address] UNIT, Orally, 300, 2 capsules with meals and 1 capsule with snacks, 30 days, Refills=6 * true * Date:? Generated for Wilfredo serrato/Taj/Daphnie on:?10/04/2024 06:11 PM EDT
--- OUTSIDE RECORDS SUMMARY | 2024-10-04 18:12 | XMS_ITS ---
Author Organization [facility] Care Team Providers Care Change Management Facilitator Name Role Phone Pk Clemente Unavailable Ashley Voss Unavailable Unavailable Mackenzie Valverde Unavailable Unavailable Allergies and adverse reactions Code CodeSystem Substance Reaction Severity StartDate Concern Status 08352 RXNORM Trimethoprim Unknown 08/25/2022 active 46436 RXNORM Sulfamethoxazole Unknown 08/25/2022 acti ve 8183 RXNORM Phenytoin Unknown 08/25/2022 active Bactrim Unknown 08/25/2022 active Adhesive Tape Unknown 08/25/2022 active Care Team Name Role Address Phone Organization Dates Pk Clemente PCP [address], [address], [place] (Office): : [facility] 08/25/2022 - 09/10/2022 Ashley Valdez Attending Physician [address], [address], [facility] (Office): : [facility] 08/25/2022 - 09/10/2022 Mackenzie Valverde Attending Physician [address], [address], [place] (Office): [facility] 08/25/2022 - 09/10/2022 Goals Section Description Status Target Date I will be free from s/s/x of fluid deficit by/through the review date. Active 09/13/2022 I will be free of fall relat ed injury through the next review date. Active 09/13/2022 I will have no indications o f acute eye problems through next review date. Active 09/13/2022 I will maintain adequate nut ritional status as evidenced by maintaining weight within +/- 5% of CBW, no s/sx of malnutrition, and consuming at least 75% of at least 2-3 meals daily through review date. Active 09/13/2022 I will not have skin breakdo wn due to incontinence through the review date. Active 09/13/2022 Immunizations Immunization Status Vaccine Details Vaccine Code CodeSystem Date Notes TB 1 Step Mantoux (PPD) completed tuberculin skin test; unspecified formulation expiry: 01/01/2023 Mfg: SANOF 1-PASTEUR Given 0.1 mg Right Forearm intradermally 98 CVX created date: 09/05/2022 consent date: 09/05/2022 administer ed date: 09/05/2022 Educated by on 09/05/2022 resident had PPD instilled in fore RT. handon 09/05/22 at 5 pm.results to be read after 48 hrs. PCV13 (Pneumococcal Conjugate)Vacci ne completed pneumococcal conjugate vaccine, 13 valent 133 CVX created date: 08/26/2022 administer ed date: 05/19/2016 PPSV23 (Previous Pneumococcal Polysaccharide) Vaccine completed pneumococcal polysaccharide vaccine, 23 valent 33 CVX created date: 08/26/2022 administer ed date: 05/19/2020 Influenza Vaccine completed Influenza, split virus, quadrivalent, injectable, contains preservative 158 CVX created date: 08/26/2022 administer ed date: 06/03/2022 SARS-COV-2 (COVID-19) completed SARS-COV-2 (COVID-19) vaccine, mRNA, spike protein, LNP, preservative free, 30 mcg/0.3mL dose Mfg: Scifiniti Step 2 of Multi-step with next step required 208 CVX created date: 08/26/2022 administer ed date: 09/11/2020 SARS-COV-2 (COVID-19) completed SARS-COV-2 (COVID-19) vaccine, mRNA, spike protein, LNP, preservative free, 30 mcg/0.3mL dose Mfg: Scifiniti Step 1 of Multi-step with next step required 208 CVX created date: 08/26/2022 administer ed date: 08/21/2020 Corous360 Covid-19 Booster (SARS-COV-2) vaccine completed SARS-COV-2 (COVID-19) vaccine, mRNA, spike protein, LNP, preservative free, 30 mcg/0.3mL dose Mfg: Scifiniti 208 CVX created date: 08/26/2022 administer ed date: [facility] completed SARS-COV-2 (COVID-19) vaccine, mRNA, spike protein, LNP, bivalent, preservative free, 30 mcg/0.3 mL dose, shawn-sucrose formulation Mfg: Scifiniti 300 CVX created date: 08/26/2022 administer ed date: 06/03/2022 Mental Status Section Date Assessment Total Score Description 09/10/2022 BIMS 14 cognitively int act CAM 0 No delirium ind icated PHQ-9 00 08/29/2022 BIMS 14 cognitively int act CAM 0 No delirium ind icated PHQ-9 00 Problems Problem # Description Date of onset Resolved Date Code CodeSystem Concern Status 1 ESSENTIAL (PRIMARY) HYPERTENSION [email or web address] active 2 EXTENDED SPECTRUM BETA LACTAMASE (ESBL) RESISTANCE [email or web address] active 3 GASTRO-ESOPHAGEAL REFLUX DISEASE WITHOUT ESOPHAGITIS [address] active 4 HYPERLIPIDEMIA, UNSPECIFIED [email or web address] active 5 IRRITABLE BOWEL SYNDROME WITH DIARRHEA [address] active 6 NON-ST ELEVATION (NSTEMI) MYOCARDIAL INFARCTION [email or web address] active 7 OTHER ABNORMAL FINDINGS IN URINE [email or web address] active 8 OTHER DISORDERS OF LUNG [email or web address] active 9 OTHER LACK OF COORDINATION [address] active 10 SEPSIS, UNSPECIFIED ORGANISM [address] active 11 TYPE 2 DIABETES MELLITUS WITH UNSPECIFIED DIABETIC RETINOPATHY WITH MACULAR EDEMA [address] active 12 TYPE 2 DIABETES MELLITUS WITHOUT COMPLICATIONS [address] active 13 UNSPECIFIED CONVULSIONS [address] active 14 UNSPECIFIED PROTEIN-CALORIE MALNUTRITION [address] active 15 URINARY TRACT INFECTION, SITE NOT SPECIFIED [address] active Reason for Referral No Reasons for Referral Entered Social History Social History Observation Description Start Date End Date Code Code System Current Smoking Status Tobacco smoking consumption unknown 398533703 SNOMED CT Sex Assigned At Female 1945 [address]-4 [facility] Vital Signs Code Code System Vitals Name Values and Units Timing Information 24759-4 [facility] Pain Level Value=4.0 09/10/2022 9279-1 [facility] Respiratory Rate Value=18.0 Units=/m in 09/10/2022 8462-4 [facility] Blood Pressure-Diastolic Value=50 Un its=mmHg 09/10/2022 8480-6 [facility] Blood Pressure-Systolic Dpatr=042 Un its=mmHg 09/10/2022 8310-5 [facility] Body Temperature Value=98.4 Units=?? F 09/10/2022 8867-4 [facility] Heart rate Value=69.0 Units=/min 47519-0 [facility] O2 % BldC Oximetry Value=96.0 Units= % 09/10/2022 2339-0 [facility] Blood Sugar Bielx=130.0 Units=mg/dL 09/10/2022 82127-0 [facility] Weight Tsxzq=738.0 Units=Lbs 8302-2 [facility] Height Value=70.1 Units=Inches 08/26/2022
--- OUTSIDE RECORDS SUMMARY | 2024-10-04 18:13 | XMS_ITS | Encounter Summary ---
Author Organization [facility] Address [address] [place] [address] Phone Care Team Providers Care Pipe Fitter Name Role Phone Mitul Garcia FINISHING DEPARTMENT SUPERVISOR Primary Care Provider [phone] Encounter Details Date Type Department Care Team ([facility] Contact Info) Description 11/27/2022 Documentation Only [facility] [address] [place] [address] Italia Rivers [address] [place] [address] Social History Tobacco Use Types Packs/Day [...] Encounters Date Type Department Care Team ([facility] Contact Info) Description 10/11/2024 9:50 AM EDT Office Visit [facility] [address] [place] [address] Sarbjit Palumbo MD [address] [place] [address] [address] [place] [address] documented as of this encounter Visit Diagnoses Not on filedocumented in this encounter Care Teams Pipe Fitter Relationship Specialty Start Date End Date Mtiul Garcia NP [address] [place] [address] PCP - General 05/24/19 documented as of this encounter
--- OUTSIDE RECORDS SUMMARY | 2024-10-04 18:13 | XMS_ITS | Encounter Summary ---
Author Organization [facility] Address [address] [place] [address] Phone Care Team Providers Care Load Blocker Name Role Phone Mitul Garcia QA MANAGER Primary Care Provider [phone] Encounter Details Date Type Department Care Team ([facility] Contact Info) Description 01/08/2023 Documentation Only [facility] [address] [place] [address] Italia Rivers [address] [place] [address] Social History Tobacco Use Types Packs/Day Years Used Date Smoking Tobacco: Former Cigarettes Q uit: 07/20/1963 Comments Unknown Sex and Gender Information Value Date Recorded Sex Assigned at Not on file Legal Sex Female 4:34 PM EST Gender Identity Not on file Sexual Orientation Not on file documented as of this encounter Plan of Treatment Upcoming Encounters Date Type Department Care Team ([facility] Contact Info) Description 10/11/2024 9:50 AM EDT Office Visit [facility] [address] [place] [address] Sarbjit Palumbo MD [address] [place] [address] [address] [place] [phone] documented as of this encounter Visit Diagnoses Not on filedocumented in this encounter Care Teams Load Blocker Relationship Specialty Start Date End Date Mitul Garcia NP [address] [place] [address] PCP - General 05/24/19 documented as of this encounter
--- OUTSIDE RECORDS SUMMARY | 2024-10-04 18:13 | XMS_ITS | Encounter Summary ---
Author Organization [facility] Address [address] [place] [address] Phone Care Team Providers Care Victorian Literature Professor Name Role Phone Mitul Garcia DIRECT SUPPORT PROFESSIONAL CAREGIVER Primary Care Provider [phone] Encounter Details Date Type Department Care Team ([facility] Contact Info) Description 12/25/2022 Documentation Only [facility] [address] [place] [address] Italia Rivers [address] [place] [address] Social History Tobacco Use Types Packs/Day Years Used Date Smoking Tobacco: Former Cigarettes Q uit: 07/20/1963 Comments Unknown Sex and Gender Information Value Date Recorded Sex Assigned at Not on file Legal Sex Female 4:34 PM EST Gender Identity Not on file Sexual Orientation Not on file documented as of this encounter Plan of Treatment Upcoming Encounters Date Type Department Care Team ([facility] Contact Info) Description 10/11/2024 9:50 AM EDT Office Visit [facility] [address] [place] [address] Sarbjit Palumbo MD [address] [place] [address] [place] [place]ías [place] [address] documented as of this encounter Visit Diagnoses Not on filedocumented in this encounter Care Teams Victorian Literature Professor Relationship Specialty Start Date End Date Mitul Garcia NP [address] [place] [address] PCP - General 05/24/19 documented as of this encounter
--- OUTSIDE RECORDS SUMMARY | 2024-10-04 18:13 | XMS_ITS ---
Author Organization [facility] Address [address] [facility] [place] [address] Care Team Providers Care Airfield Services Officer Name Role Phone Mitul Mccrary Primary Care Provider Rob Quyen Hayden Unavailable [phone] REASON FOR VISIT Ankle pain Medications Medication [...] A MONTH Oral for 90 Not-Taking Calcitonin ([place]) 200 UNIT/ACT USE 1 SPRAY NASALLY QD. ALTERNATE NOSTRILS EACH DAY Nasal for 90 Not-Taking Magnesium Oxide 400 MG 1 capsule as need ed Orally Once a day Not-Taking Vitamin D (Ergocalciferol) 11356 UNIT TK 1 C PO ONCE A WEEK Oral for 90 Not-Taking Olhkescdae-NJJQ-Yvzrrwws 50-325-40 MG 1 capsule as needed Orally [...] Problem Status W/U Status Risk Notes Problem [id number] Arthritis of left ankle (M19.072) Active confirmed Encounters Encounter Location Date Provider Diagnosis [facility] [place] [address] [place] [address] 08/04/2024 Quyen De Leon Arthritis of left [...] Follow Up: 3 Months, Reason: Provider Name:Quyen elvy, 11/28/2024 03:30:00 PM, [address] [place] [address], [address], Progress Notes * Wanda THOMPSON MDOB: 5 (78 yo F)Acc No.[id number]:08/04/2024 Progress Notes Patient:?Wanda THOMPSON Provider:?Quyen De Leon DPM :1945???Age:78 Y???Sex:Female D ate:08/04/2024 Address:[address] [place], [place] [address] Pcp:MARQUISE Morin Subjective: * Chief Complaints: * [...] 8 time(s) a day Vitamin D (Ergocalciferol) 70335 UNIT Capsule TK 1 C PO ONCE A WEEK Oral Lqvdkbpfla-FGCT-Mywlcqsh 50-325-40 MG Capsule 1 capsule as needed Orally every 4 hrs Lotrimin AF 1 % Cream 1 application to affected area Externally Twice a day Calcitonin ([place]) 200 UNIT/ACT Solution USE 1 SPRAY NASALLY [...] time(s) a day Not-Taking/PRN Vitamin D (Ergocalciferol) 12904 UNIT Capsule TK 1 C PO ONCE A WEEK Oral Not-Taking/PRN Ccbsviukdt-HDMN-Wdwevjan 50-325-40 MG Capsule 1 capsule as needed Orally every 4 hrs Not-Taking/PRN Lotrimin AF 1 % Cream 1 application to affected area Externally Twice a day Not-Taking/PRN Calcitonin ([place]) 200 UNIT/ACT Solution USE 1 SPRAY NASALLY [...] fibula or medial malleolus.?FOOTWEAR:?worn, nonsupportive?.?General Examination: ?FOOT EXAM:?Lower Extremity Neurological Exam performed:?Yes ?Footwear Evaluation?Footwear Evaluation performed:?Yes?Neurological: ?SENSORY:? Neurological exam demonstrates, reduced light touch [...] Leon DPM Date:?0 08/04/2024 Generated for Wilfredo serrato/Fasilviag/eTransmitting on:?10/04/2024 06:12 PM EDT History and Physical Notes * [...]
== END 2024-10-04 16:41 | disposition home or self-care (01) ==
LOC: HO.HMCC 15:18
PROVIDERS: PCP Nurse Practitioner Family; Visit Provider Nurse Practitioner Family
DX: E11.9 Type 2 diabetes mellitus without complications (principal)

== ENCOUNTER → 2024-10-04 15:17 | Outpatient (BNVA) | payer MEDICARE, BC, OTHER, MEDICAID, SELFPAY | PROVIDERS: PCP Nurse Practitioner Family; Visit Provider Nurse Practitioner Family | DX: E11.9 Type 2 diabetes mellitus without complications (principal) | CPT/HCPCS: 83036; 99212 ==

== ENCOUNTER 2025-01-06 07:43 | Outpatient (REF) | payer MEDICARE, BC, OTHER, MEDICAID, SELFPAY ==
--- NOTE | ~2025-01-06 | FL_ITS ---
EXAMINATION: XR FLUOROSCOPY UPPER GI WITH AIR CLINICAL INFORMATION: Hiatal hernia, GERD COMPARISON: None available. TECHNIQUE: Upper GI air single contrast study was performed however limited as patient is unable to balance and move on her own. FINDINGS: Following oral administration of thin barium there is normal propagation bolus from the oral cavity through the pharynx, esophagus into a large hiatal hernia. There is no esophageal obstruction or narrowing seen. Delayed 15 minute KUB obtained reveals contrast within the remaining stomach duodenal bulb and the proximal jejunum. No obstruction seen. Incidental finding of L4-L5 posterior hardware for fusion and a right hip prosthesis. FLUOROSCOPY TIME: 1 minute 27 seconds DOSE AREA PRODUCT: 1928 uGy-m2 (microgray-meter squared) FL/FL upper GI w air IMPRESSION: Large nonreducible hiatal hernia. No obstruction, narrowing or mucosal abnormality seen, however limited.. Electronically signed by: John Romo MD 01/06/2025 10:02 AM EDT
--- NOTE | ~2025-01-06 | XR_ITS ---
EXAMINATION: XR ABDOMEN KUB CLINICAL INDICATION: GERD, HIATAL HERNIA COMPARISON: Upper GI, same day, and CT abdomen and pelvis August 25, 2023 TECHNIQUE: AP view of the abdomen. FINDINGS: Again seen is a moderate-sized sliding hiatal hernia involving stomach fundus and a portion of the body. Residual contrast is visible in the duodenum and proximal jejunum. Bowel gas pattern is unremarkable. Posterior pedicle screws and rods are noted fusing L4-5. Total hip replacement is incompletely imaged on the right. There is protrusio of the acetabular component medially into the pelvis. There is moderate medial joint space narrowing of the left hip joint. XR/XR abdomen 1V IMPRESSION: Moderate-sized sliding hiatal hernia involving stomach fundus and a portion of the body. Protrusio of the acetabular component of total hip replacement on the right. Mild to moderate degenerative changes with medial joint space narrowing of the left hip. Electronically signed by: Amando Morales MD 01/06/2025 10:24 AM EDT
--- OUTSIDE RECORDS SUMMARY | 2025-01-06 07:45 | XMS_ITS | Encounter Summary ---
Author Organization [facility] Address [address] [place] [address] Phone Care Team Providers Care Asphalt Distributor Tender Name Role Phone Mitul Garcia INTERACTIVE MEDIA DESIGNER Primary Care Provider [phone] Reason for Visit * Reason Comments Med Refill Encounter Details Date Type Department Care Team (Late st Contact Info) Description 07/01/2022 Refill [facility] [address] [place] [phone] Balaji Nascimento MD Social History Tobacco Use Types Packs/Day Years Used Date Smoking Tobacco: Former Cigarettes Q uit: 07/20/1963 Comments Unknown Sex and Gender Information Value Date Recorded Sex Assigned at Not on file Legal Sex Female 4:34 PM EST Gender Identity Not on file Sexual Orientation Not on file documented as of this encounter Plan of Treatment Upcoming Encounters Date Type Department Care Team ([facility] Contact Info) Description 01/17/2025 3:00 PM EDT Office Visit [facility] [address] [place] [address] Sarbjit Palumbo MD [address] [place] [address] [address] [place] [place] [address] documented as of this encounter Visit Diagnoses Not on filedocumented in this encounter Care Teams Asphalt Distributor Tender Relationship Specialty Start Date End Date Mitul Garcia NP [address] [place] [address] PCP - General 05/24/19 documented as of this encounter
== END 2025-01-06 07:44 | disposition home or self-care (01) ==
LOC: HO.XRAY 07:43
PROVIDERS: PCP Nurse Practitioner Family; Visit Provider Internal Medicine Gastroenterology
DX: K44.9 Diaphragmatic hernia without obstruction or gangrene (principal); K21.9 Gastro-esophageal reflux disease without esophagitis
CPT/HCPCS: 74018; 74246

== ENCOUNTER → 2025-01-06 07:45 | Outpatient (BNV) | payer MEDICARE, BC, OTHER, MEDICAID, SELFPAY | PROVIDERS: PCP Nurse Practitioner Family; Visit Provider Radiology Diagnostic Radiology | DX: K21.9 Gastro-esophageal reflux disease without esophagitis (principal) | CPT/HCPCS: 74246 ==

== ENCOUNTER 2025-01-09 14:24 | Outpatient (REF) | payer MEDICARE, BC, OTHER, MEDICAID, SELFPAY ==
--- OUTSIDE RECORDS SUMMARY | 2025-01-09 15:56 | XMS_ITS | Encounter Summary ---
Author Organization [facility] Address [address] [place] [address] Phone Care Team Providers Care Third Hand Name Role Phone Mitul Garcia PER ASSESSMENT NURSE Primary Care Provider [phone] Reason for Visit * Reason Comments Med Refill Encounter Details Date Type Department Care Team (Late st Contact Info) Description 07/01/2022 Refill [facility] [address] [place] [phone] Balaji Nascimento MD Social History Tobacco Use [...] Upcoming Encounters Date Type Department Care Team ([facility] Contact Info) Description 01/17/2025 3:00 PM EDT Office Visit [facility] [address] [place] [address] Sarbjit Palumbo MD [address] [place] [address] [place] [place] [address] documented as of this encounter Visit Diagnoses Not on filedocumented in this encounter Care Teams Third Hand Relationship Specialty Start Date End Date Mitul Garcia NP [address] [place] [address] PCP - General 05/24/19 documented as of this encounter
[2025-01-09 16:04] LABS: MANUAL DIFF FLAG NO
[2025-01-09 16:12] LABS: Basophils Absolute Auto 0.1 X10*3/uL (0.0-0.2); Basophils Percent Auto 0.4 % (0-2); Eosinophils Absolute Auto 0.4 X10*3/uL (0.0-0.4); Eosinophils Percent Auto 3.2 % (0-4); Hematocrit 32.4 % (37.0-47.0); Hemoglobin 10.8 g/dl (12.0-16.0); Imm Gran Pct Auto 0.9 % (0.0-0.4); Lymphocytes Absolute Auto 1.3 X10*3/uL (1.2-4.9); Lymphocytes Percent Auto 11.2 % (20-40); Mean Corpuscular HGB Conc 33.3 g/dl (31.0-35.0); Mean Corpuscular Hemoglobin 28.9 pg (27.0-33.0); Mean Corpuscular Volume 86.6 fL (80.0-98.0); Mean Platelet Volume 11.5 fL (9.4-12.3); Monocytes Absolute Auto 0.6 X10*3/uL (0.1-1.2); Monocytes Percent Auto 5.6 % (2-11); Neutrophils Percent Auto 78.7 % (45-73); Platelet Count 376 X10*3/uL (160-400); Red Blood Count 3.74 X10*6/uL (4.20-5.50); Red Cell Distribution Width 13.6 % (11.0-16.0); White Blood Count 11.4 X10*3/uL (4.8-10.8)
[2025-01-09 16:34] LABS: Alanine Aminotransferase 8 U/L (0-31); Albumin Level 3.8 g/dL (3.5-5.0); Alkaline Phosphatase 46 U/L (39-117); Anion Gap 14 (12-20); Aspartate Amino Transferase 26 U/L (5-31); Bilirubin Total 0.2 mg/dL (0.0-1.0); Blood Urea Nitrogen 33 mg/dL (9-16); Calcium 11.9 mg/dL (8.4-10.2); Carbon Dioxide 24 mmol/L (22-29); Chloride 102 mmol/L (96-108); Cholesterol 129 mg/dL (<200); Estimated Glomerular Filt Rate 27; Glucose Fasting 145 mg/dL (60-99); HDL Cholesterol 29 mg/dL (>40); LDL Cholesterol Calculated 59 mg/dL (<100); Potassium 3.9 mmol/L (3.3-5.1); Sodium 136 mmol/L (135-145); Total Protein 7.1 g/dL (6.5-8.0); Triglycerides 207 mg/dL (<150)
[2025-01-09 16:41] LABS: TSH reflex Free T4 1.93 uIU/mL (0.32-4.0)
[2025-01-09 16:41] LABS: Appearance Urine Turbid; Color Urine Yellow; Glucose Urine UA Negative (Negative); Leukocyte Esterase Urine Large (3+) (Negative); Nitrite Urine Negative (Negative); PH 5.5 (5.0-9.0); Specific Gravity - Urine <= 1.005 (1.005-1.025); UMIC TRIGGER UACC YES; Urine Blood Moderate (2+) (Negative); Urine Ketones Negative (Negative); Urine Protein 30 (1+) mg/dL (Neg-Trace)
[2025-01-09 16:56] LABS: Bacteria Urine 4+ (None Seen); Squamous Epithelial Cell Urine 0-2 /HPF (0-2); UACC Culture Trigger YES; WBC Urine >50 /HPF (0-5)
== END 2025-01-09 14:25 | disposition home or self-care (01) ==
LOC: HO.HMGCLDS 14:24
PROVIDERS: PCP Nurse Practitioner Family; Visit Provider Nurse Practitioner Family
DX: E11.9 Type 2 diabetes mellitus without complications (principal); R82.79 Other abnormal findings on microbiological examination of urine
CPT/HCPCS: 36415; 80053; 80061; 81001; 84443; 85025; 87086; 87088

== ENCOUNTER 2025-01-12 13:28 | Outpatient (REF) | payer MEDICARE, BC, OTHER, MEDICAID, SELFPAY ==
--- OUTSIDE RECORDS SUMMARY | 2025-01-12 16:15 | XMS_ITS | Encounter Summary ---
Author Organization [facility] Address [address] [place] [address] Phone Care Team Providers Care Irrigation Engineer Name Role Phone Mitul Garcia ACCOUNT SUPPORT ANALYST Primary Care Provider [phone] Reason for Visit * Reason Comments Med Refill Encounter Details Date Type Department Care Team (Late st Contact Info) Description 07/01/2022 Refill [facility] [address] [place] [phone] Balaji Nascimento MD Social History Tobacco Use [...] Upcoming Encounters Date Type Department Care Team ([facility] Contact Info) Description 01/17/2025 3:00 PM EDT Office Visit [facility] [address] [place] [address] Sarbjit Palumbo MD [address] [place] [address] [place] [address] documented as of this encounter Visit Diagnoses Not on filedocumented in this encounter Care Teams Irrigation Engineer Relationship Specialty Start Date End Date Mitul Garcia NP [address] [place] [address] PCP - General 05/24/19 documented as of this encounter
[2025-01-12 17:04] LABS: Parathyroid Hormone Intact 4.7 pg/mL (8.7-77.1)
== END 2025-01-12 13:29 | disposition home or self-care (01) ==
LOC: HO.HMGCLDS 13:28
PROVIDERS: PCP Nurse Practitioner Family; Visit Provider Nurse Practitioner Family
DX: E83.52 Hypercalcemia (principal)
CPT/HCPCS: 36415; 82330; 83970

== ENCOUNTER 2025-01-23 23:27 | Inpatient (IN) | payer MEDICARE, BC, OTHER, MEDICAID, SELFPAY ==
--- OUTSIDE RECORDS SUMMARY | 2024-11-28 11:30 | XMS_ITS ---
Author Organization [facility] Address [address] [place] [address] Care Team Providers Care Contracts Representative Name Role Phone Mitul Mccrary Primary Care Provider Unav Quyen Hayden [phone] Encounters Encounter Location Date Provider Diagnosis [address] [address] 11/28/2024 Quyen De Leon Plan Of Treatment No Information Progress Notes * Wanda THOMPSON MDOB: (79 yo F)Acc No.[id number]:11/28/2024 Progress Note Patient: Ashwin CAROLYNDARWIN Wanda Pacheco Provider: Tito De Leon DPM :1945 A ge:79 Y S ex:Female Date:11/28/2024 Address:[address] [place], [place] [id number] Pcp:MARQUISE Morin Subjective: * Chief Complaints: * [...] Date: 11/28/2024 Generated for Danyi ng/Fasilviag/eTransmitting on: 01/24/2025 12:49 AM EDT
--- NOTE | ~2025-01-23 | XR_ITS ---
CLINICAL HISTORY: sob 1 view chest x-ray Comparison: CR/SR - XR CHEST 2V - 02/16/24 10:51 EDT Findings: Central vascular prominence with diffuse interstitial opacities. No pneumothorax. Dense left lower lobe opacity with trace bilateral effusions. Severe right shoulder osteoarthritis likely AVN changes. Similar prominent/enlarged cardiac silhouette. No acute fracture. Left shoulder arthroplasty. IMPRESSION: 1. Possible pulmonary edema. 2. Dense left lower lobe opacity with trace bilateral effusions. This document has been electronically signed by: Aidan Aiken MD on 01/24/2025 01:06:54
[2025-01-23 23:30] VITALS: O2SAT 89
[2025-01-23 23:32] VITALS: BP 128/64; PULSE 70; PULSE 74; RESP 18; TEMP 37.7; O2SAT 93; BMI 31.2
[2025-01-24] VITALS (14 sets, daily range): BP systolic 113–134; BP diastolic 31–63; PULSE 54–65; RESP 13–19; TEMP 36.4–38; O2SAT 95–99
[2025-01-24 00:30] LABS: MANUAL DIFF FLAG NO
[2025-01-24 00:31] LABS: Hematocrit 30.8 % (37.0-47.0); Hemoglobin 11.2 g/dl (12.0-16.0); Imm Gran Abs Auto 0.17 X10*3/uL (0.00-0.03); Imm Gran Pct Auto 1.1 % (0.0-0.4); Lymphocytes Absolute Auto 1.4 X10*3/uL (1.2-4.9); Mean Corpuscular HGB Conc 36.4 g/dl (31.0-35.0); Mean Corpuscular Hemoglobin 29.3 pg (27.0-33.0); Mean Corpuscular Volume 80.6 fL (80.0-98.0); NRBC Abs Auto 0.000 X10*3/uL (0.0-0.012); NRBC Pct Auto 0.0 /100WBC (0.0-0.2); Platelet Count 413 X10*3/uL (160-400); Red Blood Count 3.82 X10*6/uL (4.20-5.50); White Blood Count 15.9 X10*3/uL (4.8-10.8)
--- OUTSIDE RECORDS SUMMARY | 2025-01-24 00:49 | XMS_ITS | Encounter Summary ---
Author Organization [facility] Address [address] [place] [address] Phone Care Team Providers Care Roofing Contractor Name Role Phone Mitul Garcia CASE ASSISTANT Primary Care Provider [phone] Reason for Visit * Reason Comments Med Refill Encounter Details Date Type Department Care Team (Late st Contact Info) Description 07/01/2022 Refill [facility] [address] [place] [phone] Balaji Nascimento MD Social History Tobacco Use [...] Upcoming Encounters Date Type Department Care Team ([facility] Contact Info) Description 01/24/2025 11:10 AM EDT Office Visit [facility] [address] [place] [address] Sarbjit Palumbo MD [address] [place] [address] [place] [place] [place] [address] documented as of this encounter Visit Diagnoses Not on filedocumented in this encounter Care Teams Roofing Contractor Relationship Specialty Start Date End Date Mitul Garcia NP [address] [place] [address] PCP - General 05/24/19 documented as of this encounter
[2025-01-24] MEDS: SODIUM CHLORIDE 2247 ML IV (00:50)
[2025-01-24 00:58] LABS: Alanine Aminotransferase 6 U/L (0-31); Albumin Level 3.9 g/dL (3.5-5.0); Alkaline Phosphatase 48 U/L (39-117); Anion Gap 19 (12-20); Aspartate Amino Transferase 26 U/L (5-31); Blood Urea Nitrogen 53 mg/dL (9-16); Calcium 12.1 mg/dL (8.4-10.2); Carbon Dioxide 25 mmol/L (22-29); Chloride 84 mmol/L (96-108); Creatinine Clr Calc Pharmacy 14.7; Estimated Glomerular Filt Rate 16; Magnesium 1.7 mg/dL (1.6-2.6); Potassium 3.5 mmol/L (3.3-5.1); Sodium 124 mmol/L (135-145); Total Protein 7.3 g/dL (6.5-8.0)
[2025-01-24 01:03] LABS: B Type Natriuretic Peptide 65 pg/mL (<100)
[2025-01-24 01:04] LABS: Troponin-I High Sensitivity 20.5 ng/L (<3.5-17.0)
[2025-01-24 01:07] LABS: Resp Syncy Virus RNA Qual PCR NEGATIVE (Negative); SARS COV2 PCR INHOUSE NEGATIVE (Negative)
--- NOTE | 2025-01-24 01:17 | PC.NURSE ---
Per YEMI ponce normal saline discontinued. 250 ml infused.
[2025-01-24 01:22] LABS: Appearance Urine Clear; Glucose Urine UA Negative (Negative); PH 6.0 (5.0-9.0); Specific Gravity - Urine 1.010 (1.005-1.025); UMIC TRIGGER UACC YES
--- NOTE | 2025-01-24 02:11 | ED.GENADULT ---
HPI - General Adult General Chief complaint: Weakness Stated complaint: SOB, Nerves ambulating, HTN O2 93RA Time Seen by Provider: 01/23/25 23:40 Source: patient Limitations: no limitations History of Present Illness ED Provider: Emily Cole PA-C HPI narrative: 79-year-old female with a history of obesity, apnea, COPD, peripheral arterial disease, diabetes, hypertension, hyperlipidemia, chronic kidney disease, coronary artery disease, prior NSTEMI, cardiomyopathy, who presents with cough cold symptoms and weakness x1 week. Associated productive cough with dyspnea on exertion. Patient was found to be 89% on room air. Denies unintentional weight gain, orthopnea, new pedal edema. Denies known fever. Denies sick contacts with similar symptoms. The patient states she was recently treated for urinary tract infection. Related Data Home Medications ?Medication ?Instructions ?Recorded ?Confirmed blood sugar diagnostic #10 ea 05/17/20 10/04/24 magnesium L-lactate 84 mg 336 mg PO BID 08/19/22 10/04/24 tablet,extended release tramadol 50 mg tablet 50 mg PO BID PRN Pain 11/18/22 10/04/24 diphenoxylate-atropine 2.5 1 tab PO QID 02/25/24 10/04/24 mg-0.025 mg tablet jqudck-bnvmkggv-ljwrvol 2 cap PO TID 03/23/24 10/04/24 24,000-76,000-120,000 unit capsule,delayed rel (Creon) Previous Rx's ?Medication ?Instructions ?Recorded afo right foot #1 ea 09/18/21 Diabetic shoes & 3 pair inserts #1 ea 12/05/21 aspirin 81 mg tablet,delayed 81 mg PO DAILY #30 tabs 08/25/22 release walker #1 ea 12/03/22 duloxetine 20 mg capsule,delayed 20 mg PO DAILY 90 days #270 caps 11/19/23 release albuterol sulfate 90 mcg/actuation 2 puff inhalation Q6H PRN 12/29/23 aerosol inhaler bronchospasm/ sob 30 days #8.5 grams ascorbic acid (vitamin C) 1,000 mg 1 g PO DAILY 90 days #90 tabs 12/29/23 tablet cranberry fruit 400 mg capsule 400 mg PO BID 90 days #180 caps 12/29/23 methenamine hippurate 1 gram tablet 1 g PO DAILY 90 days #90 tabs 12/29/23 Myrbetriq 50 mg tablet,extended 50 mg PO DAILY 90 days #90 tabs 01/01/24 release (mirabegron) diclofenac sodium 1 % topical gel 4 g topical QID PRN pain #100 grams 02/02/24 (Voltaren Arthritis Pain) diaper,brief,adult,disposable #100 ea 03/11/24 (Briefs, Adult-Extra Large) baclofen 5 mg tablet 5 mg PO DAILY PRN muscle spasm 12 04/13/24 days #12 tabs paroxetine HCl 40 mg tablet 40 mg PO QAM #90 tabs 04/27/24 incontinence pad, liner, disp #120 ea 05/31/24 blood-glucose meter (Accu-Chek #1 ea 06/13/24 Guide Glucose Meter) disposable bedpads #60 ea 06/22/24 blood sugar diagnostic (Accu-Chek #100 ea 07/28/24 Guide test strips) lancets 21 gauge (Unistik 2 Normal #200 ea 08/09/24 Lancet) cholecalciferol (vitamin D3) 50 50 mcg PO DAILY #90 caps 08/10/24 mcg (2,000 unit) capsule metoprolol succinate 25 mg 25 mg PO BID 90 days #180 tabs 08/10/24 tablet,extended release 24 hr lancets 28 gauge (Safety Lancets) #200 ea 08/15/24 dulaglutide 3 mg/0.5 mL 3 mg (0.5 mL) subcut QWEEK 90 days 09/14/24 subcutaneous pen injector #6.5 mL mecobalamin (vitamin B12) 1,000 1,000 mcg sublingual DAILY #90 tabs 10/02/24 mcg disintegrating tablet,sublingual ammonium lactate 12 % topical cream 1 appl topical BID #140 grams 10/04/24 amoxicillin 875 mg-potassium 1 tab PO BID 10 days #20 tabs 10/13/24 clavulanate 125 mg tablet omeprazole 40 mg capsule,delayed 40 mg PO BID #180 caps 10/20/24 release pravastatin 20 mg tablet 20 mg PO DAILY #90 tabs 10/20/24 calcium citrate 500 mg (2 x 250 mg calcium) PO BID 10/26/24 #360 tabs diaper,brief,adult,disposable #100 ea 10/28/24 pregabalin 100 mg capsule 100 mg PO TID 30 days #90 caps 11/09/24 spironolactone 50 mg tablet 50 mg PO BID #60 tabs 11/15/24 loperamide 2 mg capsule (Imodium 2 mg PO Q6H PRN loose stool 30 01/04/25 A-D) days #120 caps flwloyzfgr-nkyqzopkaadic-glxmxfva 1 tab PO ONCE PRN headache 30 days 01/16/25 50 mg-325 mg-40 mg tablet #30 tabs cefuroxime axetil 500 mg tablet 500 mg PO DAILY 5 days #5 tabs 01/16/25 Allergies Allergy/AdvReac Type Severity Reaction Status Date / Time adhesive tape Allergy Severe Blister Verified 01/23/25 23:42 from adhesive bandages and rash from plastic tape phenytoin (From Dilantin) Allergy Severe Rash Verified 01/23/25 23:42 sulfamethoxazole (From Allergy Unknown UNKNOWN Verified 01/23/25 23:42 BACTRIM) trimethoprim (From BACTRIM) Allergy Unknown UNKNOWN Verified 01/23/25 23:42 Review of Systems Review of Systems: Yes all other systems are reviewed and are negative Constitutional: Constitutional: Reports fatigue, Denies fever(s), Reports malaise, Reports weakness and Denies weight gain Cardiovascular: Cardiovascular: Denies chest pain and Reports dyspnea Respiratory: Respiratory: Reports chest congestion, Reports cough, Reports dyspnea and Denies wheezing Gastrointestinal: Gastrointestinal: Denies abdominal pain, Denies diarrhea, Denies nausea and Denies vomiting Genitourinary: Genitourinary: Denies dysuria Neurologic: Reports weakness Endocrine: Endocrine: Reports fatigue Allergic/Immunologic: Allergic/Immunologic: Denies wheezing PMF Past Medical History Attestation statement: The following information was validated with the patient. Medical History Hyperhidrosis Cataract AVN (avascular necrosis of bone) Type 2 diabetes mellitus with diabetic polyneuropathy Hiatal hernia IBS (irritable bowel syndrome) GERD (gastroesophageal reflux disease) On beta jody at home Restrictive lung disease Obesity (BMI 30-39.9) GOPAL on CPAP Anemia B12 deficiency Vitamin D deficiency Breast pain, left Chronic kidney disease, stage 3 Decreased pedal pulses Diabetes mellitus with complication Retinopathy Celiac disease Right rotator cuff tear Osteoarthritis Seizures Gout Neuropathy Gitelman disease Essential hypertension Age-related osteoporosis without current pathological fracture Type 2 diabetes mellitus with other diabetic kidney complication Proteinuria Dyslipidemia Type 2 diabetes mellitus with chronic kidney disease Adult BMI 30.0-30.9 kg/sq m Surgical History History of esophagogastroduodenoscopy (EGD) S/P cardiac catheterization History of carpal tunnel surgery of right wrist History of back surgery Hx of colonoscopy History of total left knee replacement History of left shoulder replacement History of revision of total replacement of right hip joint Hx of fracture of fibula Family History Family History Father No problems noted. Mother Cancer Diabetes Daughter Substance use disorder Mental health disorder Social History Social History Household Members: Spouse and Children Household Members Other:: 2 daughter and their children Housing: House Are you a primary day care provider to a significant other at home: No Do you presently have visiting nurse or other home services: Yes (1 x week [employer]) Alcohol intake: unknown Patient Tobacco Use Status: Former Tobacco user Tobacco use type: Cigarette Years Smoked: 1963 e-Cigarette/Vaping Use: Never Used Second Hand Smoke Exposure: Yes Advance Directives: No Advance Directives Information Provided: Yes Advance Directives Date on File: 08/26/22 service: No Current occupational status: retired Cognitive needs: No Hearing needs: No Vision needs: Yes Physical Exam ED Vital Signs: Vital Signs - 24 hr 01/23/25 23:30 01/23/25 23:32 01/24/25 00:44 Temperature 99.8 F 100.4 F Pulse Rate 70 Respiratory Rate 18 Blood Pressure 128/64 Pulse Oximetry 89 L 93 Oxygen Delivery Method Room Air Nasal Cannula Oxygen Flow Rate 01/24/25 01:29 01/24/25 01:58 Temperature 98.6 F Pulse Rate 62 64 Respiratory Rate 15 17 Blood Pressure 113/31 L 125/43 L Pulse Oximetry 96 96 Oxygen Delivery Method Nasal Cannula Nasal Cannula Oxygen Flow Rate 2 2 BMI result Body Mass Index 31.2 Const Other: Alert Orientation/consciousness: patient oriented x3 Resp Other: Nonlabored respirations, bibasilar crackles noted, wet productive cough Cardio Other: Normal peripheral perfusion no pedal edema Skin Other: Warm dry no rash Neuro General: patient oriented x3, no focal motor deficits and CN's II-XI intact bilaterally Psych Other: Cooperative Course Reevaluation(s) Reevaluation #1: At 12:42 a.m. on January 24 a sepsis focused exam was performed, in addition to screening labs blood cultures lactic were obtained, we will order IV fluid therapy, start empiric ceftriaxone, Time: 00:42 Reevaluation #2: Lactic 1.7, she does not require weight based IV fluid therapy given her pressures have been stable. I had initially ordered weight based IV fluid therapy, the patient got a total of 250 mL. Medications Administered Generic Name Dose Route Start Last Admin Trade Name Freq PRN Reason Stop Dose Admin Azithromycin 500 mg/ Sodium 250 mls @ 125 mls/hr 01/24/25 01:14 01/24/25 01:29 Chloride IV 01/24/25 03:13 125 mls/hr ONCE ONE Administration Discontinued Medications Generic Name Dose Route Start Last Admin Trade Name Freq PRN Reason Stop Dose Admin Acetaminophen 975 mg 01/24/25 00:42 01/24/25 00:48 Acetaminophen 325 Mg Tablet PO 01/24/25 00:43 975 mg ONCE ONE Administration Ceftriaxone Sodium 2 gm 01/24/25 00:42 01/24/25 00:49 Ceftriaxone Sodium 2 Gm Vial IVPUSH 01/24/25 00:43 2 gm ONCE ONE Administration Sodium Chloride 2,247 mls @ 2,247 mls/hr 01/24/25 00:42 01/24/25 01:16 Ns 30 ml/kg infuse over 1 hr (2247 ml) 01/24/25 01:41 Infused IV Infusion .Q1H STA Procedures Procedure Narrative Procedure Narrative: Ultrasound-guided IV 18 gauge 1-3/4 inch IV placed in left upper extremity, adequate blood return, flushes well, secured with Tegaderm Medical Decision Making Medical Decision Making MDM Narrative: 79-year-old female with a history of obesity, apnea, COPD, peripheral arterial disease, diabetes, hypertension, hyperlipidemia, chronic kidney disease, coronary artery disease, prior NSTEMI, cardiomyopathy, who presents with cough cold symptoms and weakness x1 week. Associated productive cough with dyspnea on exertion. Patient was found to be 89% on room air. Denies unintentional weight gain, orthopnea, new pedal edema. Denies known fever. Denies sick contacts with similar symptoms. The patient states she was recently treated for urinary tract infection. Problem: Age, COPD, diabetes, hypertension, chronic kidney disease, vascular disease History history: Per patient I have considered the following differential diagnoses: Sepsis, pneumonia, COPD exacerbation, heart failure exacerbation, ACS , UTI Plan: Patient ruled in for sepsis, she has a rectal temp of 100.4?, in addition to screening labs adding blood cultures, lactic, UA, viral panel chest x-ray to determine a source. She has no wheezing on exam to suggest COPD exacerbation. She does have bibasilar crackles, I am considering pneumonia. Thought about new heart failure, however she is not overtly hypertensive, she is not volume overloaded on exam, she had an echo less than a year ago, she has normal function. We will add on a BNP. Thought about ACS, her dyspnea on exertion could be a cardiac equivalent, adding on a troponin and EKG, she does have known coronary artery disease, however she does deny chest pain. I have independently reviewed the following tests: Labs: Leukocytosis of 16 with left shift, not anemic, hyponatremic, MAGALY of 2.82, 1st troponin 20.5, BNP 65, EKG: Sinus rhythm first-degree AV block, right bundle noted, no ischemic changes, QTC 476, improved from prior study Chest x-ray:Findings: Central vascular prominence with diffuse interstitial opacities. No pneumothorax. Dense left lower lobe opacity with trace bilateral effusions. Severe right shoulder osteoarthritis likely AVN changes. Similar prominent/enlarged cardiac silhouette. No acute fracture. Left shoulder arthroplasty. IMPRESSION: 1. Possible pulmonary edema. 2. Dense left lower lobe opacity with trace bilateral effusions. Lab Data 01/24/25 00:15 01/24/25 00:23 Labs: Lab Results 01/24/25 01/24/25 01/24/25 Range/Units 00:14 00:15 00:23 WBC 15.9 H (4.8-10.8) X10*3/uL RBC 3.82 L (4.20-5.50) X10*6/uL Hgb 11.2 L (12.0-16.0) g/dl Hct 30.8 L (37.0-47.0) % MCV 80.6 (80.0-98.0) fL MCH 29.3 (27.0-33.0) pg MCHC 36.4 H (31.0-35.0) g/dl RDW 12.8 (11.0-16.0) % Plt Count 413 H (160-400) X10*3/uL MPV 10.8 (9.4-12.3) fL Immature Gran % (Auto) 1.1 H (0.0-0.4) % Neut % (Auto) 79.0 H (45-73) % Lymph % (Auto) 9.1 L (20-40) % [place] % (Auto) 8.6 (2-11) % Eos % (Auto) 1.8 (0-4) % Baso % (Auto) 0.4 (0-2) % Lymph # (Auto) 1.4 (1.2-4.9) X10*3/uL [place] # (Auto) 1.4 H (0.1-1.2) X10*3/uL Eos # (Auto) 0.3 (0.0-0.4) X10*3/uL Baso # (Auto) 0.1 (0.0-0.2) X10*3/uL Abs Immat Gran (auto) 0.17 H (0.00-0.03) X10*3/uL Absolute Neuts (auto) 12.5 H (2.0-8.3) x10*3/uL Absolute Nucleated RBC 0.000 (0.0-0.012) X10*3/uL Nucleated RBC % (auto) 0.0 (0.0-0.2) /100WBC Sodium 124 L (135-145) mmol/L Potassium 3.5 (3.3-5.1) mmol/L Chloride 84 L (96-108) mmol/L Carbon Dioxide 25 (22-29) mmol/L Anion Gap 19 (12-20) BUN 53 H (9-16) mg/dL Creatinine 2.82 H (0.5-1.4) mg/dL Estim Creat Clear Calc 14.7 Estimated GFR 16 Random Glucose 153 H (60-115) mg/dL Lactic Acid 2.0 (0.5-2.0) mmol/L Calcium 12.1 H (8.4-10.2) mg/dL Magnesium 1.7 (1.6-2.6) mg/dL Total Bilirubin 0.2 (0.0-1.0) mg/dL AST 26 (5-31) U/L ALT 6 (0-31) U/L Alkaline Phosphatase 48 (39-117) U/L Troponin I High Sens 20.5 H D (<3.5-17.0) ng/L B-Natriuretic Peptide 65 (<100) pg/mL Total Protein 7.3 (6.5-8.0) g/dL Albumin 3.9 (3.5-5.0) g/dL Urine Color Urine Appearance Urine pH (5.0-9.0) Ur Specific [place] (1.005-1.025) Urine Protein (Neg-Trace) mg/dL Urine Glucose (UA) (Negative) mg/dL Urine Ketones (Negative) mg/dL Urine Blood (Negative) Urine Nitrite (Negative) Ur Leukocyte Esterase (Negative) Urine RBC (0-2) /HPF Urine WBC (0-5) /HPF Ur Squamous Epith Cells (0-2) /HPF Urine Bacteria (None Seen) Hyaline Casts (0-2) /LPF Influenza Type A (PCR) NEGATIVE (Negative) Influenza Type B (PCR) NEGATIVE (Negative) RSV RNA Qual (PCR) NEGATIVE (Negative) SARS-CoV-2 RNA (RT-PCR) NEGATIVE (Negative) 01/24/25 Range/Units 01:04 WBC (4.8-10.8) X10*3/uL RBC (4.20-5.50) X10*6/uL Hgb (12.0-16.0) g/dl Hct (37.0-47.0) % MCV (80.0-98.0) fL MCH (27.0-33.0) pg MCHC (31.0-35.0) g/dl RDW (11.0-16.0) % Plt Count (160-400) X10*3/uL MPV (9.4-12.3) fL Immature Gran % (Auto) (0.0-0.4) % Neut % (Auto) (45-73) % Lymph % (Auto) (20-40) % [place] % (Auto) (2-11) % Eos % (Auto) (0-4) % Baso % (Auto) (0-2) % Lymph # (Auto) (1.2-4.9) X10*3/uL [place] # (Auto) (0.1-1.2) X10*3/uL Eos # (Auto) (0.0-0.4) X10*3/uL Baso # (Auto) (0.0-0.2) X10*3/uL Abs Immat Gran (auto) (0.00-0.03) X10*3/uL Absolute Neuts (auto) (2.0-8.3) x10*3/uL Absolute Nucleated RBC (0.0-0.012) X10*3/uL Nucleated RBC % (auto) (0.0-0.2) /100WBC Sodium (135-145) mmol/L Potassium (3.3-5.1) mmol/L Chloride (96-108) mmol/L Carbon Dioxide (22-29) mmol/L Anion Gap (12-20) BUN (9-16) mg/dL Creatinine (0.5-1.4) mg/dL Estim Creat Clear Calc Estimated GFR Random Glucose (60-115) mg/dL Lactic Acid (0.5-2.0) mmol/L Calcium (8.4-10.2) mg/dL Magnesium (1.6-2.6) mg/dL Total Bilirubin (0.0-1.0) mg/dL AST (5-31) U/L ALT (0-31) U/L Alkaline Phosphatase (39-117) U/L Troponin I High Sens (<3.5-17.0) ng/L B-Natriuretic Peptide (<100) pg/mL Total Protein (6.5-8.0) g/dL Albumin (3.5-5.0) g/dL Urine Color Yellow Urine Appearance Clear Urine pH 6.0 (5.0-9.0) Ur Specific [place] 1.010 (1.005-1.025) Urine Protein 30 (1+) H (Neg-Trace) mg/dL Urine Glucose (UA) Negative (Negative) mg/dL Urine Ketones Negative (Negative) mg/dL Urine Blood Negative (Negative) Urine Nitrite Negative (Negative) Ur Leukocyte Esterase Negative (Negative) Urine RBC 0-2 (0-2) /HPF Urine WBC 0-5 (0-5) /HPF Ur Squamous Epith Cells 0-2 (0-2) /HPF Urine Bacteria None Seen (None Seen) Hyaline Casts 0-2 (0-2) /LPF Influenza Type A (PCR) (Negative) Influenza Type B (PCR) (Negative) RSV RNA Qual (PCR) (Negative) SARS-CoV-2 RNA (RT-PCR) (Negative) Critical Care Time Critical Care Time Critical Care Time: Yes Total Critical Care Time: 30 Attestation: Evin Cole PA-C have personally performed 30 minutes of critical care time not including lines and procedures; sepsis Discharge Plan Discharge Clinical Impression: Sepsis, Acute kidney injury, Pneumonia, Hypoxia, Acute hyponatremia Patient Disposition: Admitted As Inpatient Print Language: Greenlandic
--- NOTE | 2025-01-24 02:29 | ECG_ITS ---
Test Reason : HYPOXIA Blood Pressure : */* mmHG Vent. Rate : 63 BPM Atrial Rate : 63 BPM P-R Int : 232 ms QRS Dur : 162 ms QT Int : 466 ms P-R-T Axes : 72 266 17 degrees QTcB Int : 476 ms Sinus rhythm with 1st degree A-V block Right bundle branch block Abnormal ECG When compared with ECG of 21-Aug-2022 15:21, MO interval has increased QRS duration has increased T wave inversion no longer evident in Inferior leads T wave inversion no longer evident in Anterolateral leads Referred By: Emily Cole Electronically Signed By: Michael Ledesma
--- NOTE | 2025-01-24 03:21 | PC.NURSE ---
Pt c/o of headache. Offered PRN medication, per patient request,stating she will prefer to take tylenol for headache. Understanding pain level is higher than orders offer, gave Tylenol by request of patient.
--- NOTE | 2025-01-24 03:24 | PM.IMHP ---
History of Present Illness Date of Service: 01/24/25 Attending physician on admission: Enrique Sheldon Chief Complaint: weakness Pt is an 79 yo female with PMH diabetes, GOPAL on CPAP, anemia, GERD, IBS, peripheral neuropathy, chronic kidney disease stage 3, gout, , Gitelman syndrome, hypertension, large hiatal hernia, diverticulosis, dyslipidemia and UTI presents to ED via EMS with complaints of progressive weakness and then today new onset shortness of breath. Patient does not use oxygen at home. Patient states she she was recently started on antibiotics for UTI and also was started on a diuretic this past Thursday and after starting the diuretic felt weaker. Patient states due to her Gitelman's syndrome, per volcanologist has told her not to start a diuretic as this will impair her magnesium levels even further. Magnesium level currently pending. Patient does have chronic kidney disease but there is evidence of MAGALY on admission. UA negative for UTI. Patient currently has a leukocytosis of 15.9 and is afebrile. Lactic acid is 2.0. Patient currently denies any abdominal pain, chest pain or shortness of breath at rest. Incidentally patient has murmur on exam and patient states she has never been told she had a murmur. Last echo was in 2023, and this was a limited technical study with EF of 55-60% but cardiac valves at the time were poorly visualized. Echo has been ordered. BNP is normal limits. Patient does have history of cardiac catheterization and was told her arteries were clear. Sodium 124, chloride 84 and this may be 2 to recent use of diuretic. Patient believes she was prescribed furosemide this past Thursday and patient has stopped the medication on her own after few days of use due to concerns over her magnesium level and renal function.. Calcium elevated at 12.1. Patient states she may have a problem with her parathyroid hormone. She has gone through recent testing and is waiting results. Patient also has evidence of MAGALY noting chronic kidney disease history. Blood pressure currently stable and patient will avoid nephrotoxic medications. Nephrology has been consulted. Review of Systems Review of Systems: Patient denies any chest pain, shortness of breath at rest or with exertion. Patient denies any abdominal pain, nausea or vomiting. Patient does describe generalized weakness but is generally using a wheelchair at this time due to her progressive peripheral neuropathy. Patient denies any flank pain or burning or pain with urination. Yes all other systems are reviewed and are negative FORMERLY [facility], [facility] Medical History Hyperhidrosis Cataract AVN (avascular necrosis of bone) Type 2 diabetes mellitus with diabetic polyneuropathy Hiatal hernia IBS (irritable bowel syndrome) GERD (gastroesophageal reflux disease) On beta jody at home Restrictive lung disease Obesity (BMI 30-39.9) GOPAL on CPAP Anemia B12 deficiency Vitamin D deficiency Breast pain, left Chronic kidney disease, stage 3 Decreased pedal pulses Diabetes mellitus with complication Retinopathy Celiac disease Right rotator cuff tear Osteoarthritis Seizures Gout Neuropathy Gitelman disease Essential hypertension Age-related osteoporosis without current pathological fracture Type 2 diabetes mellitus with other diabetic kidney complication Proteinuria Dyslipidemia Type 2 diabetes mellitus with chronic kidney disease Adult BMI 30.0-30.9 kg/sq m Functional capacity: wheelchair bound Patient : No Family History Father No problems noted. Mother Cancer Diabetes Daughter Substance use disorder Mental health disorder Surgical History History of esophagogastroduodenoscopy (EGD) S/P cardiac catheterization History of carpal tunnel surgery of right wrist History of back surgery Hx of colonoscopy History of total left knee replacement History of left shoulder replacement History of revision of total replacement of right hip joint Hx of fracture of fibula Social History Household Members: Spouse and Children Household Members Other:: 2 daughter and their children Housing: House Are you a primary health care coordinator to a significant other at home: No Do you presently have visiting nurse or other home services: Yes (1 x week [employer]) Alcohol intake: unknown Patient Tobacco Use Status: Former Tobacco user Tobacco use type: Cigarette Years Smoked: 1964 e-Cigarette/Vaping Use: Never Used Second Hand Smoke Exposure: Yes Advance Directives: No Advance Directives Information Provided: Yes Advance Directives Date on File: 08/26/22 Patient : No service: No Current occupational status: retired Cognitive needs: No Hearing needs: No Vision needs: Yes Ebola Risk: Travel/Contact With Anyone From Affected Area/s: No Has Patient Experienced Ebola Symptoms: No Meds Allergies Allergy/AdvReac Type Severity Reaction Status Date / Time adhesive tape Allergy Severe Blister Verified 01/23/25 23:42 from adhesive bandages and rash from plastic tape phenytoin (From Dilantin) Allergy Severe Rash Verified 01/23/25 23:42 sulfamethoxazole (From Allergy Unknown UNKNOWN Verified 01/23/25 23:42 BACTRIM) trimethoprim (From BACTRIM) Allergy Unknown UNKNOWN Verified 01/23/25 23:42 Home Medications ?Medication ?Instructions ?Recorded ?Confirmed ?Last Taken ?Type blood sugar diagnostic #10 ea 05/17/20 10/04/24 Unknown History magnesium L-lactate 84 mg 336 mg PO BID 08/19/22 10/04/24 08/10/23 06:20 History tablet,extended release tramadol 50 mg tablet 50 mg PO BID PRN Pain 11/18/22 10/04/24 Unknown History diphenoxylate-atropine 2.5 1 tab PO QID 02/25/24 10/04/24 Unknown History mg-0.025 mg tablet ookfuz-tyrclzvx-huvddyu 2 cap PO TID 03/23/24 10/04/24 Unknown History 24,000-76,000-120,000 unit capsule,delayed rel (Creon) Physical Exam Vital Signs and Narrative: Vital Signs: Last Vital Signs Temp 98.6 F 01/24/25 01:58 Pulse 64 01/24/25 01:58 Resp 17 01/24/25 01:58 BP 125/43 L 01/24/25 01:58 Pulse Ox 96 01/24/25 01:58 O2 Del Method Nasal Cannula 01/24/25 01:58 O2 Flow Rate 2 01/24/25 01:58 Oxygen Flow Rate 2 01/23/25 23:32 BMI result Body Mass Index 31.2 Alert and orientated X3, able to give good history. Neuro: CN II-X11 intact, no deficits, visual acuity intact EYES: PERRLA, EOM intact, sclerae nonicteric, ,conjunctiva pink glasses on ENT: hearing intact, no issues with swallowing, uvula midline, lips moist, nares patent no epistaxis Cardiac: S1 S2 RRR, holosystolic murmur, no JVD, mild edema in Lower ext Pulmonary: lungs diminished bilaterally Abdominal: BS active in all 4 quadrants, no guarding, tenderness, rebounding MSK: strength 4/5 upper and 3/5 in lower extremities : no CVA tenderness no bladder distension Extremities: Mild edema in lower extremities, PT and DP pulses palpable +2 Psych: mood stable, judgement and insight good Skin: Intact, no report of open wounds Results Labs 01/24/25 00:15 01/24/25 00:23 Labs: Laboratory Results - last 24 hr 01/24/25 01/24/25 01/24/25 00:14 00:15 00:23 MCV 80.6 MCH 29.3 MCHC 36.4 H RDW 12.8 Plt Count 413 H MPV 10.8 Immature Gran % (Auto) 1.1 H Neut % (Auto) 79.0 H Lymph % (Auto) 9.1 L [place] % (Auto) 8.6 Eos % (Auto) 1.8 Baso % (Auto) 0.4 Lymph # (Auto) 1.4 [place] # (Auto) 1.4 H Eos # (Auto) 0.3 Baso # (Auto) 0.1 Abs Immat Gran (auto) 0.17 H Absolute Neuts (auto) 12.5 H Absolute Nucleated RBC 0.000 Nucleated RBC % (auto) 0.0 Anion Gap 19 Estim Creat Clear Calc 14.7 Estimated GFR 16 Random Glucose 153 H Lactic Acid 2.0 Calcium 12.1 H Magnesium 1.7 Total Bilirubin 0.2 AST 26 ALT 6 Alkaline Phosphatase 48 B-Natriuretic Peptide 65 Total Protein 7.3 Albumin 3.9 Urine Color Urine Appearance Urine pH Ur Specific [place] Urine Protein Urine Glucose (UA) Urine Ketones Urine Blood Urine Nitrite Ur Leukocyte Esterase Urine RBC Urine WBC Ur Squamous Epith Cells Urine Bacteria Hyaline Casts Influenza Type A (PCR) NEGATIVE Influenza Type B (PCR) NEGATIVE RSV RNA Qual (PCR) NEGATIVE SARS-CoV-2 RNA (RT-PCR) NEGATIVE 01/24/25 01:04 MCV MCH MCHC RDW Plt Count MPV Immature Gran % (Auto) Neut % (Auto) Lymph % (Auto) [place] % (Auto) Eos % (Auto) Baso % (Auto) Lymph # (Auto) [place] # (Auto) Eos # (Auto) Baso # (Auto) Abs Immat Gran (auto) Absolute Neuts (auto) Absolute Nucleated RBC Nucleated RBC % (auto) Anion Gap Estim Creat Clear Calc Estimated GFR Random Glucose Lactic Acid Calcium Magnesium Total Bilirubin AST ALT Alkaline Phosphatase B-Natriuretic Peptide Total Protein Albumin Urine Color Yellow Urine Appearance Clear Urine pH 6.0 Ur Specific [place] 1.010 Urine Protein 30 (1+) H Urine Glucose (UA) Negative Urine Ketones Negative Urine Blood Negative Urine Nitrite Negative Ur Leukocyte Esterase Negative Urine RBC 0-2 Urine WBC 0-5 Ur Squamous Epith Cells 0-2 Urine Bacteria None Seen Hyaline Casts 0-2 Influenza Type A (PCR) Influenza Type B (PCR) RSV RNA Qual (PCR) SARS-CoV-2 RNA (RT-PCR) ECG Attestation: I personally reviewed and interpreted this ECG as follows: (Sinus rhythm first-degree AV block [place] 232 QTC 476) Prior ECG tracings: available for review Imaging Radiologist's Impressions: CXR Findings: Central vascular prominence with diffuse interstitial opacities. No pneumothorax. Dense left lower lobe opacity with trace bilateral effusions. Severe right shoulder osteoarthritis likely AVN changes. Similar prominent/enlarged cardiac silhouette. No acute fracture. Left shoulder arthroplasty. IMPRESSION: 1. Possible pulmonary edema. 2. Dense left lower lobe opacity with trace bilateral effusions Assessment and Plan (1) Pneumonia: Qualifiers: Pneumonia type: due to unspecified organism Laterality: left Lung location: lower lobe of lung Qualified Code(s): J18.9 - Pneumonia, unspecified organism Status: Acute Plan Pt is an 79 yo female with PMH diabetes, GOPAL on CPAP, anemia, GERD, IBS, peripheral neuropathy, chronic kidney disease stage 3, gout, , Gitelman syndrome, NSTEMI, hypertension, dyslipidemia, large hiatal hernia, diverticulosis, fatty liver and UTI being admitted for pneumonia. Patient has had issues with recent UTI and was also started on diuretic this past Thursday. Acute hypoxic respiratory failure -Pulse ox 89% on room air on arrival to the ED -With oxygen, improved 96% -Patient does not use home O2 -Evidence of pneumonia with bilateral pleural effusions and pulmonary edema -Patient is started on antibiotics -Duo nebs p.r.n. -Incentive spirometry -Supportive care Pneumonia left lower lobe -Patient currently on ceftriaxone and azithromycin -Aspiration precautions in place -Patient has very large hiatal hernia, we will have speech therapy assess swallowing ability -O2 nasal cannula wean as tolerated -Incentive spirometry Bilateral pleural effusions -holding use of diuretics at this time noting electrolytes and history of magnesium deficiency, some labs are still pending -consider CT scan if no improvement in patient's oxygenation Pulmonary edema -Echo has been ordered noting evidence of holosystolic murmur, patient feels this may be new -Previous echo was a limited study Sinus rhythm first-degree AV block ([place] 232), right bundle-branch block, holosysolic murmur on exam -RBBB is not new -Cardiology consulted -Holding beta-jody at this time -Magnesium pending, pt has Gitelman syndrome -Telemetry MAGALY on chronic kidney disease stage 3 -Nephrology consulted -Avoid hypotension -Avoid nephrotoxic meds -Monitor BMP -Measure I/Os Q8H Hyponatremia -Nephrology consulted -Urine studies ordered -Unable to provide normal saline IV fluids due to pulmonary edema and bilateral pleural effusions -pt recently on short term diuretic with furosemide, but stopped medication due to concerns about her MG and kidneys Hypercalcemia -Albumin level is normal -Add ionized calcium level -Recent workup for parathyroid issues, recent labs pending -Hold calcium citrate -Patient does not take any thiazides at this time Insulin-dependent diabetes -Sliding scale insulin -Diabetic diet DVT prophylaxis: Heparin subQ PPI prophylaxis: Omeprazole Med rec pending Full code status Quality Stroke Does the patient have a stroke diagnosis?: No Reason for No Anti-thrombotic by Day Two: N/A - Med Ordered VTE Prior VTE?: No VTE Risk Level:: Medical - moderate - high VTE Device Contraindication: N/A - Device Ordered VTE Drug Contraindication: N/A - Med Ordered
[2025-01-24] MEDS: Magnesium Sulfate/H2O 2 GM/50 ML PIGGYBACK IV (04:53)
[2025-01-24 06:49] LABS: MANUAL DIFF FLAG NO
[2025-01-24 06:52] LABS: Hematocrit 27.6 % (37.0-47.0); Hemoglobin 9.9 g/dl (12.0-16.0); Imm Gran Abs Auto 0.15 X10*3/uL (0.00-0.03); Imm Gran Pct Auto 1.2 % (0.0-0.4); Lymphocytes Absolute Auto 1.7 X10*3/uL (1.2-4.9); Mean Corpuscular HGB Conc 35.9 g/dl (31.0-35.0); Mean Corpuscular Hemoglobin 29.3 pg (27.0-33.0); Mean Corpuscular Volume 81.7 fL (80.0-98.0); NRBC Abs Auto 0.000 X10*3/uL (0.0-0.012); NRBC Pct Auto 0.0 /100WBC (0.0-0.2); Platelet Count 391 X10*3/uL (160-400); Red Blood Count 3.38 X10*6/uL (4.20-5.50); White Blood Count 12.2 X10*3/uL (4.8-10.8)
--- NOTE | 2025-01-24 07:07 | PC.NURSE ---
pt medicated per SEP. Brief changed.
[2025-01-24 07:20] LABS: Troponin-I High Sensitivity 19.8 ng/L (<3.5-17.0)
[2025-01-24 07:36] LABS: Alanine Aminotransferase < 6 U/L (0-31); Albumin Level 3.5 g/dL (3.5-5.0); Alkaline Phosphatase 44 U/L (39-117); Anion Gap 16 (12-20); Aspartate Amino Transferase 22 U/L (5-31); Blood Urea Nitrogen 50 mg/dL (9-16); Calcium 11.1 mg/dL (8.4-10.2); Carbon Dioxide 27 mmol/L (22-29); Chloride 88 mmol/L (96-108); Creatinine Clr Calc Pharmacy 16.9; Estimated Glomerular Filt Rate 19; Magnesium 2.5 mg/dL (1.6-2.6); Potassium 3.0 mmol/L (3.3-5.1); Sodium 128 mmol/L (135-145); Total Protein 6.5 g/dL (6.5-8.0)
[2025-01-24 07:50] LABS: Glucose, Whole Blood 146 mg/dL (60-115)
[2025-01-24 07:54] LABS: Osmolality, Serum 281 mosm/kg (281-305)
--- NOTE | 2025-01-24 08:05 | PC.NURSE ---
Pt is calm, cooperative, resting and watching TV. Pt sts she feels less SOB since arrival. RR even and unlabored. Pt denies any pain at this time.
--- NOTE | 2025-01-24 08:19 | PC.NURSE ---
Potassium noted to be 3.0, MD Hale made aware.
[2025-01-24] MEDS: 0.9 % Sodium Chloride Flush 3 ML SYRINGE IVFLUSH ×2 (08:44→16:29)
--- NOTE | 2025-01-24 09:28 | PHA.MEDREC ---
Pharmacy Consult ? Medication Reconciliation Pharmacy has completed the medication reconciliation. Spoke with patient at bedside, she was able to tell me her meds with some prompting. States she no longer takes aspirin or baclofen, doesn't take cranberry capsules, and finished her Augmentin and Cefuroxime.
[2025-01-24] MEDS: Potassium Chloride ER 20 MEQ TAB.ER.PRT 40 MEQ PO (09:47)
[2025-01-24 10:38] LABS: Anion Gap 12 (12-20); Blood Urea Nitrogen 49 mg/dL (9-16); Calcium 11.3 mg/dL (8.4-10.2); Carbon Dioxide 30 mmol/L (22-29); Chloride 87 mmol/L (96-108); Creatinine Clr Calc Pharmacy 17.3; Estimated Glomerular Filt Rate 20; Potassium 3.2 mmol/L (3.3-5.1); Sodium 126 mmol/L (135-145)
--- NOTE | 2025-01-24 11:00 | P.CONNP_ITS ---
History of Present Illness Reason for Consult Consult date: 01/24/25 Chief Complaint Chief complaint: Hypoxic respiratory failure, hyponatremia History of Present Illness Narrative: 79 y/o female with diabetes, GOPAL on CPAP, anemia, GERD, IBS, peripheral neuropathy, chronic kidney disease stage 3, Gitelman syndrome, hypertension, gout, large hiatal hernia, diverticulosis, dyslipidemia and UTI presented 01/24 with complaints of progressive weakness and new onset shortness of breath. Nephrology consulted for hyponatremia, MAGALY. Patient reports started lasix 80mg daily a few days prior to presentation. 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 States she felt progressively worse after this, though was feeling unwell prior to starting the diuretic. she states she takes magnesium daily and has for a few decades now for management of her gitelman syndrome. she states she normally hydrates well but PO intake was poor a few days prior to presentation due to feeling unwell. she is being treated with antibiotics for pneumonia. bedside echo per Dr Berg- IVC collapsed upon inspiration Review of Systems Constitutional: Reports fatigue and Reports weakness Cardiovascular: Denies chest pain, Denies leg edema, Denies lightheadedness and Reports dyspnea Respiratory: Denies cough and Reports dyspnea Gastrointestinal: Denies abdominal pain, Denies constipation, Denies diarrhea, Denies nausea and Denies vomiting Genitourinary: Denies hematuria, Denies difficulty voiding, Denies dysuria and Denies flank pain Musculoskeletal: Denies arthralgias, Denies muscle cramps and Reports muscle weakness Skin/Breast: Denies rash Reports weakness Endocrine: Reports fatigue PMFSH Past Medical History Medical History Hyperhidrosis Cataract AVN (avascular necrosis of bone) Type 2 diabetes mellitus with diabetic polyneuropathy Hiatal hernia IBS (irritable bowel syndrome) GERD (gastroesophageal reflux disease) On beta jody at home Restrictive lung disease Obesity (BMI 30-39.9) GOPAL on CPAP Anemia B12 deficiency Vitamin D deficiency Breast pain, left Chronic kidney disease, stage 3 Decreased pedal pulses Diabetes mellitus with complication Retinopathy Celiac disease Right rotator cuff tear Osteoarthritis Seizures Gout Neuropathy Gitelman disease Essential hypertension Age-related osteoporosis without current pathological fracture Type 2 diabetes mellitus with other diabetic kidney complication Proteinuria Dyslipidemia Type 2 diabetes mellitus with chronic kidney disease Adult BMI 30.0-30.9 kg/sq m Family History Family History Father No problems noted. Mother Cancer Diabetes Daughter Substance use disorder Mental health disorder Surgical History Surgical History History of esophagogastroduodenoscopy (EGD) S/P cardiac catheterization History of carpal tunnel surgery of right wrist History of back surgery Hx of colonoscopy History of total left knee replacement History of left shoulder replacement History of revision of total replacement of right hip joint Hx of fracture of fibula Social History Social History Household Members: Spouse and Children Household Members Other:: 2 daughter and their children Housing: House Are you a primary manager career to a significant other at home: No Do you presently have visiting nurse or other home services: Yes (1 x week [employer]) Alcohol intake: unknown Patient Tobacco Use Status: Former Tobacco user Tobacco use type: Cigarette Years Smoked: 1963 e-Cigarette/Vaping Use: Never Used Second Hand Smoke Exposure: Yes Advance Directives: No Advance Directives Information Provided: Yes Advance Directives Date on File: 08/26/22 Patient : No service: No Current occupational status: retired Cognitive needs: No Hearing needs: No Vision needs: Yes Travel History Ebola Risk: Travel/Contact With Anyone From Affected Area/s: No Has Patient Experienced Ebola Symptoms: No Meds Allergies Allergy/AdvReac Type Severity Reaction Status Date / Time adhesive tape Allergy Severe Blister Verified 01/23/25 23:42 from adhesive bandages and rash from plastic tape phenytoin (From Dilantin) Allergy Severe Rash Verified 01/23/25 23:42 sulfamethoxazole (From Allergy Unknown UNKNOWN Verified 01/23/25 23:42 BACTRIM) trimethoprim (From BACTRIM) Allergy Unknown UNKNOWN Verified 01/23/25 23:42 Active Medications: Current Medications Acetaminophen (Acetaminophen 325 Mg Tablet) 650 mg PO Q6H PRN PRN Reason: Pain, Mild 1-3,fever,headache Albuterol/Ipratropium (Albuterol/Iprat 2.5/0.5mg 3 Ml Ampul.Neb) 3 ml INHALE Q4H PRN PRN Reason: Shortness of Breath/Wheezing Calcium Carbonate (Calcium Carbonate 750 Mg Tab.Chew) 750 mg PO Q4H PRN PRN Reason: Heartburn Ceftriaxone Sodium (Ceftriaxone Sodium 1 Gm Vial) 1 gm IVPUSH BEDTIME [facility] Dextrose (Dextrose 50 % 25 Gm/50 Ml Syringe) 25 gm IVPUSH Q15M PRN; Protocol PRN Reason: per Hypoglycemia Standing Ord. Glucose (Glucose Gel 15 Gm Gel..Gram.) 15 gm PO Q15M PRN; Protocol PRN Reason: per Hypoglycemia Standing Ord. Heparin Sodium (Porcine) (Heparin Sodium,Porcine 5,000 Unit/Ml Vial) 5,000 unit SUBCUT Q12H [facility] Last Admin: 01/24/25 08:44 Dose: 5,000 unit Azithromycin 500 mg/ Sodium (Chloride) 250 mls @ 125 mls/hr IV BEDTIME [facility] Insulin Human Lispro (Insulin Lispro 100 Unit/Ml 3 Ml Vial) 0 unit SUBCUT QIDACHS [facility], [facility]; Protocol Last Admin: 01/24/25 12:52 Dose: Not Given Magnesium Hydroxide (Milk Of Magnesia 30 Ml Oral.Susp) 30 ml PO DAILY PRN PRN Reason: Constipation Melatonin (Melatonin 3 Mg Tablet) 6 mg PO BEDTIME PRN PRN Reason: Insomnia Omeprazole (Omeprazole 20 Mg Capsule.Dr) 20 mg PO DAILY@0630 [facility] Last Admin: 01/24/25 06:49 Dose: 20 mg Ondansetron HCl (Ondansetron Hcl 4 Mg/2 Ml Vial) 4 mg IVPUSH Q8H PRN PRN Reason: Nausea and Vomiting Polyethylene Glycol (Polyethylene Glycol 3350 17 Gm Powd.Pack) 17 gm PO DAILY PRN PRN Reason: Constipation Senna (Sennosides 8.6 Mg Tablet) 17.2 mg PO BEDTIME [facility] Sodium Chloride (0.9 % Sodium Chloride Flush 3 Ml Syringe) 3 ml IVFLUSH QSHIFT [facility] Last Admin: 01/24/25 08:44 Dose: 3 ml Home Medications ?Medication ?Instructions ?Recorded ?Confirmed ?Last Taken ?Type blood sugar diagnostic #10 ea 05/17/20 10/04/24 Unk nown History magnesium L-lactate 84 mg 336 mg PO BID 01/01/2401/23/25 09:00 History tablet,extended release tramadol 50 mg tablet 50 mg PO BID PRN Pain 01/24/25 01/23/25 09:00 History diphenoxylate-atropine 2.5 1 tab PO QID 02/25/2401/2401/23/25 09:00 History mg-0.025 mg tablet srnpvz-qnmurfic-lgnhznd 2 cap PO TIDAC 03/23/2403/1301/23/25 09:00 History 24,000-76,000-120,000 unit capsule,delayed rel (Creon) dulaglutide 3 mg/0.5 mL 3 mg subcut WE 01/24/2503/1301/23/25 09:00 History subcutaneous pen injector paroxetine HCl 40 mg tablet 40 mg PO DAILY 01/24/2501/23/25 09:00 History Physical Exam Vital Signs: Last Vital Signs Temp 97.6 F 01/24/25 10:33 Pulse 57 01/24/25 13:05 Resp 13 01/24/25 13:05 BP 134/40 L 01/24/25 13:05 Pulse Ox 99 01/24/25 13:05 O2 Del Method Nasal Cannula 01/24/25 13:05 O2 Flow Rate 2 01/24/25 13:05 Oxygen Flow Rate 2 01/23/25 23:32 BMI result Body Mass Index 31.2 Const General: no acute distress, alert and awake Resp Effort & Inspection: normal respiratory effort and able to speak in complete sentences Auscultation: crackles Cardio Rate: regular rate Rhythm: regular rhythm Heart sounds: S1 normal heart sound present and S2 normal heart sound present GI Palpation (GI): Soft to palpation and nontender Skin Rashes: no rashes Extrem General: No edema Results Lab Results 01/24/25 06:00 01/24/25 10:05 Lab results: Chemistry 01/24/25 01/24/25 01/24/25 00:23 06:00 10:05 Sodium 124 L 128 L 126 L Potassium 3.5 3.0 L 3.2 L Carbon Dioxide 25 27 30 H BUN 53 H 50 H 49 H Creatinine 2.82 H 2.45 H 2.39 H Calcium 12.1 H 11.1 H D 11.3 H Hematology 01/24/25 01/24/25 00:15 06:00 WBC 15.9 H 12.2 H Hgb 11.2 L 9.9 L Plt Count 413 H 391 Urinalysis 01/24/25 01:04 Urine Color Yellow Urine Appearance Clear Urine pH 6.0 Ur Specific [place] 1.010 Urine Protein 30 (1+) H Urine Glucose (UA) Negative Urine Ketones Negative Urine Blood Negative Urine Nitrite Negative Ur Leukocyte Esterase Negative Urine RBC 0-2 Urine WBC 0-5 Ur Squamous Epith Cells 0-2 Hyaline Casts 0-2 Assessment and Plan (1) Acute kidney injury superimposed on CKD: Status: Acute (2) Hyponatremia: Status: Acute Plan MAGALY on CKD- likely pre-renal secondary to hypoperfusion from poor PO intake in combination with diuretic use prior to presentation, given fairly rapid improvement in creatinine recommend IV fluids to address hypovolemia hyponatremia- will get urine sodium and urine osmolality- may be SIADH secondary to pulmonary process, however, hypovolemia may also be contributing recommend daily electrolyte and renal function studies avoid nephrotoxins continue supportive care Discussed with Dr Berg. Procedures Date of Service Date of Service: 01/24/25
[2025-01-24 12:49] LABS: Glucose, Whole Blood 122 mg/dL (60-115)
--- NOTE | 2025-01-24 12:59 | PC.NURSE ---
Pt's daughter Ashley spoke to me on the phone after authorization from the patient. Ashley stated the family will be going away this weekend and the patient's has mobility issues and would not be able to care for the patient on their own. She was notified that the patient may require rehab after the hospital and she requested that she does NOT go to the rehab on [facility] in [place] d/t a bad previous experience there.
--- NOTE | 2025-01-24 13:02 | MHC.CM.PN ---
PATIENT LIVES WITH SPOUSE. USES A [facility] FOR AMBULATION ASSIST. HCP ON FILE AND VERIFIED. NO [facility] SERVICES. SHE DOES HAVE PRIVATE PAY CLEANING SERVICES 3X/WEEK. DR LYNN GUTIÉRREZ IS PCP. IMM 01/24 IN CHART.
--- NOTE | 2025-01-24 13:23 | P.CONCA_ITS ---
History of Present Illness History of Present Illness Date of Service: 01/24/25 Requesting physician: Ramon Hale Chief complaint: Hypoxic respiratory failure, hyponatremia Narrative: [age] year female with background history of takotsubo cardiomyopathy with recovery on subsequent echocardiography, stage IIIB chronic kidney disease secondary to diabetic nephropathy, Gitelman syndrome, diabetes, GOPAL on CPAP, anemia, GERD, irritable bowel syndrome and peripheral neuropathy. She is coming with progressive weakness and shortness of breath. Apparently she was started on furosemide (unclear currently who started her) and she was concerned about her magnesium and potassium levels. When Gitelman syndrome she gets electrolyte issues. She was feeling very weak and decided to go to urgent care where she was noticed to be hypoxic and sent to the emergency department. Her initial saturations were documented as 89%. Chest x-ray also showed cephalization and some bilateral effusions as well as left lower lobe opacity. She was admitted for potential heart failure and electrolyte abnormalities. She is laying flat in bed and is denying any shortness of breath currently. She is on supplemental oxygen. No chest discomfort. Her BNP 65. She has CKD and creatinine currently is 2.39. Last potassium was 3.2, sodium 126, chloride 87 and bicarb 30. [facility] Past Medical History Medical History Hyperhidrosis Cataract AVN (avascular necrosis of bone) Type 2 diabetes mellitus with diabetic polyneuropathy Hiatal hernia IBS (irritable bowel syndrome) GERD (gastroesophageal reflux disease) On beta jody at home Restrictive lung disease Obesity (BMI 30-39.9) GOPAL on CPAP Anemia B12 deficiency Vitamin D deficiency Breast pain, left Chronic kidney disease, stage 3 Decreased pedal pulses Diabetes mellitus with complication Retinopathy Celiac disease Right rotator cuff tear Osteoarthritis Seizures Gout Neuropathy Gitelman disease Essential hypertension Age-related osteoporosis without current pathological fracture Type 2 diabetes mellitus with other diabetic kidney complication Proteinuria Dyslipidemia Type 2 diabetes mellitus with chronic kidney disease Adult BMI 30.0-30.9 kg/sq m Family History Family History Father No problems noted. Mother Cancer Diabetes Daughter Substance use disorder Mental health disorder Surgical History Surgical History History of esophagogastroduodenoscopy (EGD) S/P cardiac catheterization History of carpal tunnel surgery of right wrist History of back surgery Hx of colonoscopy History of total left knee replacement History of left shoulder replacement History of revision of total replacement of right hip joint Hx of fracture of fibula Social History Social History Household Members: Spouse and Children Household Members Other:: 2 daughter and their children Housing: House Are you a primary urgent care physician to a significant other at home: No Do you presently have visiting nurse or other home services: Yes (1 x week [employer]) Alcohol intake: unknown Patient Tobacco Use Status: Former Tobacco user Tobacco use type: Cigarette Years Smoked: 1963 e-Cigarette/Vaping Use: Never Used Second Hand Smoke Exposure: Yes Advance Directives: No Advance Directives Information Provided: Yes Advance Directives Date on File: 08/26/22 Patient : No service: No Current occupational status: retired Cognitive needs: No Hearing needs: No Vision needs: Yes Travel History Ebola Risk: Travel/Contact With Anyone From Affected Area/s: No Has Patient Experienced Ebola Symptoms: No Meds Allergies Allergy/AdvReac Type Severity Reaction Status Date / Time adhesive tape Allergy Severe Blister Verified 01/23/25 23:42 from adhesive bandages and rash from plastic tape phenytoin (From Dilantin) Allergy Severe Rash Verified 01/23/25 23:42 sulfamethoxazole (From Allergy Unknown UNKNOWN Verified 01/23/25 23:42 BACTRIM) trimethoprim (From BACTRIM) Allergy Unknown UNKNOWN Verified 01/23/25 23:42 Active Medications: Current Medications Acetaminophen (Acetaminophen 325 Mg Tablet) 650 mg PO Q6H PRN PRN Reason: Pain, Mild 1-3,fever,headache Albuterol/Ipratropium (Albuterol/Iprat 2.5/0.5mg 3 Ml Ampul.Neb) 3 ml INHALE Q4H PRN PRN Reason: Shortness of Breath/Wheezing Calcium Carbonate (Calcium Carbonate 750 Mg Tab.Chew) 750 mg PO Q4H PRN PRN Reason: Heartburn Ceftriaxone Sodium (Ceftriaxone Sodium 1 Gm Vial) 1 gm IVPUSH BEDTIME TAYLOR Dextrose (Dextrose 50 % 25 Gm/50 Ml Syringe) 25 gm IVPUSH Q15M PRN; Protocol PRN Reason: per Hypoglycemia Standing Ord. Glucose (Glucose Gel 15 Gm Gel..Gram.) 15 gm PO Q15M PRN; Protocol PRN Reason: per Hypoglycemia Standing Ord. Heparin Sodium (Porcine) (Heparin Sodium,Porcine 5,000 Unit/Ml Vial) 5,000 unit SUBCUT Q12H [facility] Last Admin: 01/24/25 08:44 Dose: 5,000 unit Azithromycin 500 mg/ Sodium (Chloride) 250 mls @ 125 mls/hr IV BEDTIME [facility] Insulin Human Lispro (Insulin Lispro 100 Unit/Ml 3 Ml Vial) 0 unit SUBCUT QIDACHS [facility]; Protocol Last Admin: 01/24/25 12:52 Dose: Not Given Magnesium Hydroxide (Milk Of Magnesia 30 Ml Oral.Susp) 30 ml PO DAILY PRN PRN Reason: Constipation Melatonin (Melatonin 3 Mg Tablet) 6 mg PO BEDTIME PRN PRN Reason: Insomnia Omeprazole (Omeprazole 20 Mg Capsule.Dr) 20 mg PO DAILY@0630 [facility] Last Admin: 01/24/25 06:49 Dose: 20 mg Ondansetron HCl (Ondansetron Hcl 4 Mg/2 Ml Vial) 4 mg IVPUSH Q8H PRN PRN Reason: Nausea and Vomiting Polyethylene Glycol (Polyethylene Glycol 3350 17 Gm Powd.Pack) 17 gm PO DAILY PRN PRN Reason: Constipation Senna (Sennosides 8.6 Mg Tablet) 17.2 mg PO BEDTIME [facility] Sodium Chloride (0.9 % Sodium Chloride Flush 3 Ml Syringe) 3 ml IVFLUSH QSHIFT [facility] Last Admin: 01/24/25 08:44 Dose: 3 ml Home Medications ?Medication ?Instructions ?Recorded ?Confirmed ?Last Taken ?Type blood sugar diagnostic #10 ea 05/17/20 10/04/24 Unk nown History magnesium L-lactate 84 mg 336 mg PO BID 08/19/2201/2401/23/25 09:00 History tablet,extended release tramadol 50 mg tablet 50 mg PO BID PRN Pain 01/24/25 01/23/25 09:00 History diphenoxylate-atropine 2.5 1 tab PO QID 02/25/2401/2401/23/25 09:00 History mg-0.025 mg tablet [id number] 2 cap PO TIDAC 03/23/24 0703/1301/23/25 09:00 History 24,000-76,000-120,000 unit capsule,delayed rel (Creon) dulaglutide 3 mg/0.5 mL 3 mg subcut WE 01/24/2503/1301/23/25 09:00 History subcutaneous pen injector paroxetine HCl 40 mg tablet 40 mg PO DAILY 01/24/2501/23/25 09:00 History Physical Exam 2 Vital Signs: Vital Signs: Last Vital Signs Temp 97.6 F 01/24/25 10:33 Pulse 57 01/24/25 13:05 Resp 13 01/24/25 13:05 BP 134/40 L 01/24/25 13:05 Pulse Ox 99 01/24/25 13:05 O2 Del Method Nasal Cannula 01/24/25 13:05 O2 Flow Rate 2 01/24/25 13:05 Oxygen Flow Rate 2 01/23/25 23:32 BMI result Body Mass Index 31.2 GENERAL APPEARANCE: in no acute distress, obese. On supplemental oxygen. NECK: no carotid bruit, no obvious jugular venous distention. SKIN: no suspicious lesions, warm and dry. HEART: no murmurs, regular rate and rhythm. LUNGS: Bilateral inspiratory crackles. ABDOMEN: soft, nontender. EXTREMITIES: Mild edema. PERIPHERAL PULSES: equal. NEUROLOGIC: No gross deficits, AAO X 3 Objective Labs and Meds 01/24/25 06:00 01/24/25 10:05 Lab results: Laboratory Results - last 24 hr 01/24/25 01/24/25 01/24/25 00:14 00:15 00:23 WBC 15.9 H RBC 3.82 L Hgb 11.2 L Hct 30.8 L MCV 80.6 MCH 29.3 MCHC 36.4 H RDW 12.8 Plt Count 413 H MPV 10.8 Immature Gran % (Auto) 1.1 H Neut % (Auto) 79.0 H Lymph % (Auto) 9.1 L Schuyler % (Auto) 8.6 Eos % (Auto) 1.8 Baso % (Auto) 0.4 Lymph # (Auto) 1.4 Schuyler # (Auto) 1.4 H Eos # (Auto) 0.3 Baso # (Auto) 0.1 Abs Immat Gran (auto) 0.17 H Absolute Neuts (auto) 12.5 H Absolute Nucleated RBC 0.000 Nucleated RBC % (auto) 0.0 Sodium 124 L Potassium 3.5 Chloride 84 L Carbon Dioxide 25 Anion Gap 19 BUN 53 H Creatinine 2.82 H Estim Creat Clear Calc 14.7 Estimated GFR 16 POC Glucose Random Glucose 153 H Osmolality Lactic Acid 2.0 Calcium 12.1 H Magnesium 1.7 Total Bilirubin 0.2 AST 26 ALT 6 Alkaline Phosphatase 48 Troponin I High Sens 20.5 H D B-Natriuretic Peptide 65 Total Protein 7.3 Albumin 3.9 TSH Urine Color Urine Appearance Urine pH Ur Specific [place] Urine Protein Urine Glucose (UA) Urine Ketones Urine Blood Urine Nitrite Ur Leukocyte Esterase Urine RBC Urine WBC Ur Squamous Epith Cells Urine Bacteria Hyaline Casts Influenza Type A (PCR) NEGATIVE Influenza Type B (PCR) NEGATIVE RSV RNA Qual (PCR) NEGATIVE SARS-CoV-2 RNA (RT-PCR) NEGATIVE 01/24/25 01/24/25 01/24/25 01:04 06:00 07:37 WBC 12.2 H RBC 3.38 L Hgb 9.9 L Hct 27.6 L MCV 81.7 MCH 29.3 MCHC 35.9 H RDW 12.8 Plt Count 391 MPV 11.1 Immature Gran % (Auto) 1.2 H Neut % (Auto) 71.3 Lymph % (Auto) 13.9 L Sch[place]yler % (Auto) 10.7 Eos % (Auto) 2.5 Baso % (Auto) 0.4 Lymph # (Auto) 1.7 Schuyler # (Auto) 1.3 H Eos # (Auto) 0.3 Baso # (Auto) 0.1 Abs Immat Gran (auto) 0.15 H Absolute Neuts (auto) 8.7 H Absolute Nucleated RBC 0.000 Nucleated RBC % (auto) 0.0 Sodium 128 L Potassium 3.0 L Chloride 88 L Carbon Dioxide 27 Anion Gap 16 BUN 50 H Creatinine 2.45 H Estim Creat Clear Calc 16.9 Estimated GFR 19 POC Glucose 146 H Random Glucose 130 H Osmolality 281 Lactic Acid Calcium 11.1 H D Magnesium 2.5 Total Bilirubin 0.2 AST 22 ALT < 6 Alkaline Phosphatase 44 Troponin I High Sens 19.8 H B-Natriuretic Peptide Total Protein 6.5 Albumin 3.5 TSH 0.89 Urine Color Yellow Urine Appearance Clear Urine pH 6.0 Ur Specific [place] 1.010 Urine Protein 30 (1+) H Urine Glucose (UA) Negative Urine Ketones Negative Urine Blood Negative Urine Nitrite Negative Ur Leukocyte Esterase Negative Urine RBC 0-2 Urine WBC 0-5 Ur Squamous Epith Cells 0-2 Urine Bacteria None Seen Hyaline Casts 0-2 Influenza Type A (PCR) Influenza Type B (PCR) RSV RNA Qual (PCR) SARS-CoV-2 RNA (RT-PCR) 01/24/25 01/24/25 10:05 12:44 WBC RBC Hgb Hct MCV MCH MCHC RDW Plt Count MPV Immature Gran % (Auto) Neut % (Auto) Lymph % (Auto) Sch[place] % (Auto) Eos % (Auto) Baso % (Auto) Lymph # (Auto) [place] # (Auto) Eos # (Auto) Baso # (Auto) Abs Immat Gran (auto) Absolute Neuts (auto) Absolute Nucleated RBC Nucleated RBC % (auto) Sodium 126 L Potassium 3.2 L Chloride 87 L Carbon Dioxide 30 H Anion Gap 12 BUN 49 H Creatinine 2.39 H Estim Creat Clear Calc 17.3 Estimated GFR 20 POC Glucose 122 H Random Glucose 146 H Osmolality Lactic Acid Calcium 11.3 H Magnesium Total Bilirubin AST ALT Alkaline Phosphatase Troponin I High Sens B-Natriuretic Peptide Total Protein Albumin TSH Urine Color Urine Appearance Urine pH Ur Specific [place] Urine Protein Urine Glucose (UA) Urine Ketones Urine Blood Urine Nitrite Ur Leukocyte Esterase Urine RBC Urine WBC Ur Squamous Epith Cells Urine Bacteria Hyaline Casts Influenza Type A (PCR) Influenza Type B (PCR) RSV RNA Qual (PCR) SARS-CoV-2 RNA (RT-PCR) Assessment and Plan (1) Essential hypertension: Status: Acute (2) Weakness: Status: Acute (3) Electrolyte abnormality: Status: Acute Plan 79-year-old female who is presenting with significant electrolyte imbalance in the setting of diuretic use on background of Gitelman syndrome. She was also noticed to be hypoxic and chest x-ray has raise concern for mild CHF. There is also reported 10s opacity in the left base. Clinically she does not appear to be in florid heart failure. Also with electrolyte issues I think we should hold diuretics for now. We will discuss with Nephrology about diuretic strategy. Blood pressure is reasonably controlled. She has no coronary disease and has background of takotsubo cardiomyopathy. We will repeat echocardiography on this admission. Thank you for allowing me to participate in the care of your patient. Please feel free to contact me if you have any questions. Procedures Date of Service Date of Service: 01/24/25
[2025-01-24 16:47] LABS: Glucose, Whole Blood 172 mg/dL (60-115)
[2025-01-24 18:17] LABS: Glucose, Whole Blood 161 mg/dL (60-115)
--- NOTE | 2025-01-24 18:30 | PC.NURSE ---
Reached out to provider regarding [id number] request of patient. Pt sts she normally takes tablets with meals.
--- NOTE | 2025-01-24 19:15 | PM.EVENT ---
Event Note Date of Service: 01/24/25 Event Note: Patient seen and examined at bedside,already seen and examined by hospitalist team this morning. Physical exam and assessment plan as per H&P: Hyponatremia: seen by nephro-workup added added fluids @nd @75 ml/hr moniter bmp acute hypokalemia: added potassium Time Spent With Patient Time: Total time managing care of this patient today ____ minutes.
[2025-01-24] MEDS: PARoxetine HCL 40 MG TABLET PO (20:48)
[2025-01-24] MEDS: Potassium Chloride ER 20 MEQ TAB.ER.PRT PO (20:48)
[2025-01-24] MEDS: Lipase/Prot/Amylase 24/76/120K 1 CAP CAPSULE.DR 2 CAP PO (20:58)
[2025-01-24] MEDS: Mirabegron 50 MG TAB.ER.24H PO (20:59)
[2025-01-24] MEDS: Metoprolol Succinate ER 25 MG TAB.ER.24H PO (21:48)
[2025-01-24] MEDS: Calcium Oyster Shell Elemental 500 MG TABLET PO (21:49)
[2025-01-24 22:06] LABS: Glucose, Whole Blood 144 mg/dL (60-115)
[2025-01-25] VITALS (11 sets, daily range): BP systolic 103–135; BP diastolic 39–63; PULSE 56–71; RESP 15–18; TEMP 36.3–36.6; O2SAT 95–100; BMI 35.7
--- NOTE | 2025-01-25 00:17 | PC.NURSE ---
IV fluids delayed, IV line infiltrated. new line placed
[2025-01-25 01:37] LABS: Anion Gap 14 (12-20); Blood Urea Nitrogen 44 mg/dL (9-16); Calcium 10.5 mg/dL (8.4-10.2); Carbon Dioxide 26 mmol/L (22-29); Chloride 93 mmol/L (96-108); Creatinine Clr Calc Pharmacy 19.0; Estimated Glomerular Filt Rate 22; Potassium 4.5 mmol/L (3.3-5.1); Sodium 128 mmol/L (135-145)
[2025-01-25 07:19] LABS: Glucose, Whole Blood 128 mg/dL (60-115)
[2025-01-25] MEDS: Calcium Oyster Shell Elemental 500 MG TABLET PO ×2 (08:46→21:43)
[2025-01-25] MEDS: Lipase/Prot/Amylase 24/76/120K 1 CAP CAPSULE.DR 2 CAP PO ×3 (08:46→17:03)
[2025-01-25] MEDS: Mirabegron 50 MG TAB.ER.24H PO (08:46)
[2025-01-25] MEDS: PARoxetine HCL 40 MG TABLET PO (08:47)
[2025-01-25] MEDS: Metoprolol Succinate ER 25 MG TAB.ER.24H PO ×2 (08:47→21:42)
--- NOTE | 2025-01-25 10:45 | P.PNNP_ITS ---
Subjective Subjective Date of Service: 01/25/25 Interval history: following for hyponatremia, MAGALY. She is on antibiotics for PNA. patient reports she is feeling ok today. Denies new symptoms/concerns. Physical Exam 2 Vital Signs: Vital Signs: Last Vital Signs Temp 97.4 F 01/25/25 11:07 Pulse 56 01/25/25 11:07 Resp 18 01/25/25 11:07 BP 135/63 01/25/25 11:07 Pulse Ox 99 01/25/25 11:07 O2 Del Method Nasal Cannula 01/25/25 11:07 O2 Flow Rate 3 01/25/25 11:07 Oxygen Flow Rate 2 01/23/25 23:32 BMI result Body Mass Index 35.7 Const: General: no acute distress, alert and awake Resp: Effort & Inspection: normal respiratory effort and able to speak in complete sentences Auscultation: crackles Cardio: Rate: regular rate Rhythm: regular rhythm Heart sounds: S1 normal heart sound present and S2 normal heart sound present GI: Palpation (GI): Soft to palpation and nontender Skin: Rashes: no rashes Extrem: General: No edema Objective Data Labs 01/24/25 06:00 01/25/25 01:12 Labs: Laboratory Results - last 24 hr 01/24/25 01/24/25 01/24/25 16:42 18:14 22:02 Sodium Potassium Chloride Carbon Dioxide Anion Gap BUN Creatinine Estim Creat Clear Calc Estimated GFR POC Glucose 172 H 161 H 144 H Random Glucose Calcium 01/25/25 01/25/25 01/25/25 01:12 07:15 11:19 Sodium 128 L Potassium 4.5 D Chloride 93 L Carbon Dioxide 26 Anion Gap 14 BUN 44 H Creatinine 2.18 H Estim Creat Clear Calc 19.0 Estimated GFR 22 POC Glucose 128 H 140 H Random Glucose 168 H Calcium 10.5 H D Microbiology Microbiology Results: Microbiology 01/24/25 00:16 Blood - Venous Blood Culture - Preliminary No growth after 24 hours. 01/24/25 00:23 Blood - Venous Blood Culture - Preliminary No growth after 24 hours. Procedures Date of Service Date of Service: 01/25/25 Assessment & Plan Assessment and plan (1) Acute kidney injury superimposed on CKD: Status: Acute (2) Acute hyponatremia: Status: Acute Plan AMGALY on CKD- likely pre-renal secondary to hypoperfusion from poor PO intake in combination with diuretic use prior to presentation. Improving- patient is close to baseline creatinine. hyponatremia- may be SIADH secondary to pulmonary process, however, hypovolemia may also be contributing. urine studies are still pending, on bedside echo was volume depleted, should continue with fluids as ordered. recommend daily electrolyte and renal function studies avoid nephrotoxins continue supportive care Discussed with Dr Berg. Time Spent With Patient Time: Total time managing care of this patient today ____ minutes. Progress Note: Quality Stroke Does the patient have a stroke diagnosis?: No Reason for No Anti-thrombotic by Day Two: N/A - Med Ordered
[2025-01-25 11:23] LABS: Glucose, Whole Blood 140 mg/dL (60-115)
[2025-01-25 13:47] LABS: Anion Gap 13 (12-20); Blood Urea Nitrogen 41 mg/dL (9-16); Calcium 10.1 mg/dL (8.4-10.2); Carbon Dioxide 28 mmol/L (22-29); Chloride 93 mmol/L (96-108); Creatinine Clr Calc Pharmacy 25.2; Estimated Glomerular Filt Rate 28; Potassium 4.7 mmol/L (3.3-5.1); Sodium 129 mmol/L (135-145)
[2025-01-25 13:54] LABS: Calcium, Ionized 6.2 mg/dL (4.7-5.5)
[2025-01-25] MEDS: 0.9 % Sodium Chloride Flush 3 ML SYRINGE IVFLUSH (14:35)
--- NOTE | 2025-01-25 14:55 | PM.PNCARD ---
Subjective Subjective Date of Service: 01/25/25 Interval history: Seen examined at bedside. She has been coughing up phlegm. She is on antibiotics since admission for pneumonia. Physical Exam Vital Signs: Last Vital Signs Temp 97.4 F 01/25/25 11:07 Pulse 56 01/25/25 11:07 Resp 18 01/25/25 11:07 BP 135/63 01/25/25 11:07 Pulse Ox 99 01/25/25 11:07 O2 Del Method Nasal Cannula 01/25/25 11:07 O2 Flow Rate 3 01/25/25 11:07 Oxygen Flow Rate 2 01/23/25 23:32 BMI result Body Mass Index 35.7 GENERAL APPEARANCE: in no acute distress, obese. On supplemental oxygen. NECK: no carotid bruit, no obvious jugular venous distention. SKIN: no suspicious lesions, warm and dry. HEART: no murmurs, regular rate and rhythm. LUNGS: Left-sided basilar crackles. ABDOMEN: soft, nontender. EXTREMITIES: Mild edema. PERIPHERAL PULSES: equal. NEUROLOGIC: No gross deficits, AAO X 3 Objective Labs and Meds 01/24/25 06:00 01/25/25 13:21 Lab results: Laboratory Results - last 24 hr 01/24/25 01/24/25 01/24/25 06:00 16:42 18:14 Sodium Potassium Chloride Carbon Dioxide Anion Gap BUN Creatinine Estim Creat Clear Calc Estimated GFR POC Glucose 172 H 161 H Random Glucose Calcium Ionized Calcium 6.2 H 01/24/25 01/25/25 01/25/25 22:02 01:12 07:15 Sodium 128 L Potassium 4.5 D Chloride 93 L Carbon Dioxide 26 Anion Gap 14 BUN 44 H Creatinine 2.18 H Estim Creat Clear Calc 19.0 Estimated GFR 22 POC Glucose 144 H 128 H Random Glucose 168 H Calcium 10.5 H D Ionized Calcium 01/25/25 01/25/25 11:19 13:21 Sodium 129 L Potassium 4.7 Chloride 93 L Carbon Dioxide 28 Anion Gap 13 BUN 41 H Creatinine 1.76 H Estim Creat Clear Calc 25.2 Estimated GFR 28 POC Glucose 140 H Random Glucose 163 H Calcium 10.1 Ionized Calcium Progress Note: A&P Assessment and plan (1) Essential hypertension: Status: Acute Plan 79-year-old female presenting for shortness of breath. She has been diagnosed with pneumonia. There was some concern about congestive heart failure on admission. She also has significant electrolyte abnormalities after starting Lasix as outpatient. Currently her diuretics are on hold. We are repleting the electrolytes. She has known Gitelman syndrome and Nephrology is following her closely. Overall clinically stable at this point from cardiovascular point of view. Continue treatment for pneumonia. We will follow along with you. Thank you for allowing me to participate in the care of your patient. Please feel free to contact me if you have any questions. Time Spent With Patient Time: Total time managing care of this patient today ____ minutes. Progress Note: Quality Stroke Does the patient have a stroke diagnosis?: No Reason for No Anti-thrombotic by Day Two: N/A - Med Ordered Procedures Date of Service Date of Service: 01/25/25
--- NOTE | 2025-01-25 15:00 | CA_ITS ---
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 There is mildly increased left ventricular wall thickness. The visually estimated ejection fraction is between 60-65%. - Elevated filling pressures. - Mildly increased right ventricular cavity size. There is normal right ventricular systolic function. Findings Procedure Information Contrast agent, definity, is being given per protocol without apparent complications. Left Ventricle Normal left ventricular size and systolic function. There is mildly increased left ventricular wall thickness. The visually estimated ejection fraction is between 60-65%. There is no evidence of regional wall motion abnormalities. Abnormal diastolic function is noted. Spectral Doppler is indicative of a pseudonormal filling pattern. Elevated filling pressures. Right Ventricle Mildly increased right ventricular cavity size. There is normal right ventricular systolic function. Atria The left atrium is mildly dilated. The right atrium is mildly dilated. Aortic Valve There is a normal trileaflet aortic valve. There is mild calcification of the aortic valve. There is mild aortic valve stenosis. There is no aortic valve regurgitation. Mitral Valve Normal mitral valve structure and function. There is no mitral valve regurgitation. There is no mitral valve stenosis. Pulmonic Valve The pulmonic valve is normal. There is trace pulmonic valve regurgitation. Tricuspid Valve Normal tricuspid valve structure and function. There is trace tricuspid valve regurgitation. Tricuspid regurgitation envelope is inadequate for calculation of right ventricular systolic pressure. Normal right atrial pressure. Great Vessels All visible segments of the aorta are normal in size. The visualized portions of the pulmonary artery and branches are normal. Venous The inferior vena cava is normal in size and collapses greater than 50% with inspiration. Pericardium/Pleural There is no evidence of pericardial effusion. Prior Study Comparison No significant change compared to prior study dated: 03/30/2024. Measurements 2D Linear Measurements IVSd: 1.14 0.6-0.9/0.6-1.0 cm LVIDd: 3.13 3.9-5.3/4.2-5.9 cm LVIDd Index: 1.80 2.4-3.2/2.2-3.1 cm/m2 LVIDs: 2.26 2.0-3.6 cm LVPWd: 1.08 0.7-1.1 cm LA Diam: 3.20 2.7-3.8/3.0-4.0 cm LAIDs Index: 1.84 1.5-2.3 cm/m2 LV Mass: 127.36 67-162/88-224 g LV Mass Index: 73.20 43-95/49-115 g/m2 LVOT Diam: 2.20 3.0+(-)1.3 cm 2D Systolic Function EF 4C: 74.70 >55% EF 2C: 70.50 >55% EF BiP: 72.70 >55% Mitral Valve MV Pk E: 1.25 MV PK A: 1.11 MV Decel Time: 297.00 E/A: 1.10 E'Lateral: 7.07 E'Medial: 4.13 E/E' Med: 30.30 E/E' Lat: 17.70 PHT: 87.00 MVA PHT: 2.53 Decel [place]: 4.20 Aortic Valve AoV Pk Felix: 2.19 AoV Mn Felix: 1.43 AoV VTI: 0.45 AoV Pk Grad: 19.00 Aov Mn Grad: 10.00 SHIREEN Cont.VTI: 2.17 LVOT LVOT Pk Felix: 1.13 LVOT Mn Felix: 0.81 LVOT VTI: 0.26 LVOT Pk Grad: 5.00 LVOT Mn Grad: 3.00 LVOT Diam: 2.20 LVOT Area: 3.80 Diastolic Function MV Pk E: 1.25 MV Pk A: 1.11 E/A: 1.10 E'Medial: 4.13 E/E' Med: 30.30 E' Laterial: 7.07 E/E' Lat: 17.70 Right Ventricle TAPSE (mm): 19.30 TVS' Felix: 12.30 Tricuspid Valve RA Press: 3.00 Great Vessels Aorta Sinus of Valsalva: 2.80 2.0-3.5 cm Ao Asc: 3.10 2.1-3.4 cm Pulmonary Valve PV Pk Felix: 0.92 Peak PV Grad: 3.00 Updated in Other Vendor System with Status of Final Michael Ledesma MD electronically signed on 01/26/2025 3:42:47 PM with status of Final
--- NOTE | 2025-01-25 15:28 | HO.PM.IMPN ---
Subjective Subjective Date of Service: 01/25/25 Interval History: pneumonia Review of Systems sob seems imporving has productive cough no fevers Physical Exam Vital Signs: Vital Signs: Last Vital Signs Temp 97.4 F 01/25/25 11:07 Pulse 56 01/25/25 11:07 Resp 18 01/25/25 11:07 BP 135/63 01/25/25 11:07 Pulse Ox 99 01/25/25 11:07 O2 Del Method Nasal Cannula 01/25/25 11:07 O2 Flow Rate 3 01/25/25 11:07 Oxygen Flow Rate 2 01/23/25 23:32 BMI result Body Mass Index 35.7 Appearance: Alert.? Oriented X3.? cvs: [id number], [id number] . res: florencia entry diminshed left >right. abd: no rebound or guarding ,nt, bs present. ext pulses present , no cyanosis . neuro: axo3 , nonfocal. Objective Data Active Medications Acetaminophen (Acetaminophen 325 Mg Tablet) 650 mg PO Q6H PRN PRN Reason: Pain, Mild 1-3,fever,headache Last Admin: 01/25/25 00:54 Dose: 650 mg Documented By: ACE Albuterol Sulfate (Albuterol Sulfate 90 Mcg 8 Gm Inhaler) 2 puff INHALE Q6H PRN PRN Reason: bronchospasm/ sob Albuterol/Ipratropium (Albuterol/Iprat 2.5/0.5mg 3 Ml Ampul.Neb) 3 ml INHALE Q4H PRN PRN Reason: Shortness of Breath/Wheezing Lipase/Protease/Amylase (Lipase/Prot/Amylase 24/76/120k 1 Cap Capsule.) 2 cap PO TIDAC [facility] Last Admin: 01/25/25 12:19 Dose: 2 cap Documented By: JOY Ascorbic Acid (Ascorbic Acid 500 Mg Tablet) 1,000 mg PO DAILY [facility] Last Admin: 01/25/25 08:47 Dose: 1,000 mg Documented By: GUS Calcium Carbonate (Calcium Carbonate 750 Mg Tab.Chew) 750 mg PO Q4H PRN PRN Reason: Heartburn Calcium Carbonate (Calcium Oyster Shell Elemental 500 Mg Tablet) 500 mg PO BID [facility] Last Admin: 01/25/25 08:46 Dose: 500 mg Documented By: GUS Ceftriaxone Sodium (Ceftriaxone Sodium 1 Gm Vial) 1 gm IVPUSH BEDTIME [facility] Last Admin: 01/24/25 21:50 Dose: 1 gm Documented By: TORRIE Cyanocobalamin (Cyanocobalamin (Vitamin B-12) 1,000 Mcg Tablet) 1,000 mcg PO DAILY [facility] Last Admin: 01/25/25 08:47 Dose: 1,000 mcg Documented By: GUS Dextrose (Dextrose 50 % 25 Gm/50 Ml Syringe) 25 gm IVPUSH Q15M PRN; Protocol PRN Reason: per Hypoglycemia Standing Ord. Diphenoxylate HCl/Atropine (Diphenoxylate/Atrop 2.5/0.025 Tablet) 1 tab PO QID [facility] Last Admin: 01/25/25 12:19 Dose: 1 tab Documented By: JOY Duloxetine HCl (Duloxetine Hcl 20 Mg Capsule.Dr) 20 mg PO DAILY [facility] Last Admin: 01/25/25 08:46 Dose: 20 mg Documented By: GUS Glucose (Glucose Gel 15 Gm Gel..Gram.) 15 gm PO Q15M PRN; Protocol PRN Reason: per Hypoglycemia Standing Ord. Heparin Sodium (Porcine) (Heparin Sodium,Porcine 5,000 Unit/Ml Vial) 5,000 unit SUBCUT Q12H [facility] Last Admin: 01/25/25 08:48 Dose: 5,000 unit Documented By: GUS Azithromycin 500 mg/ Sodium (Chloride) 250 mls @ 125 mls/hr IV BEDTIME [facility] Last Infusion: 01/25/25 02:06 Dose: Infused Documented By: MANJULA Sodium Chloride (Ns) 1,000 mls @ 75 mls/hr IVCONT .[id number] [facility] Last Admin: 01/25/25 08:48 Dose: 75 mls/hr Documented By: GUS Insulin Human Lispro (Insulin Lispro 100 Unit/Ml 3 Ml Vial) 0 unit SUBCUT QIDACHS [facility]; Protocol Last Admin: 01/25/25 11:24 Dose: Not Given Documented By: JOY Non-Admin Reason: No Insulin Coverage Lactic Acid (Ammonium Lactate 12 % Cream 140 Gm Tube) 1 appl TOPICAL BID [facility]; Protocol Last Admin: 01/25/25 10:46 Dose: Not Given Documented By: JOY Non-Admin Reason: Med Not Available Loperamide HCl (Loperamide Hcl 2 Mg Capsule) 2 mg PO Q6H PRN PRN Reason: Loose Stool Magnesium Hydroxide (Milk Of Magnesia 30 Ml Oral.Susp) 30 ml PO DAILY PRN PRN Reason: Constipation Melatonin (Melatonin 3 Mg Tablet) 6 mg PO BEDTIME PRN PRN Reason: Insomnia Methenamine Hippurate (Methenamine Hippurate 1 Gm Tablet) 1 gm PO DAILY [facility] Last Admin: 01/25/25 08:47 Dose: 1 gm Documented By: GUS Metoprolol Succinate (Metoprolol Succinate Er 25 Mg Tab.Er.24h) 25 mg PO BID [facility]; Protocol Last Admin: 01/25/25 08:47 Dose: 25 mg Documented By: GUS Mirabegron (Mirabegron 50 Mg Tab.Er.24h) 50 mg PO DAILY [facility] Last Admin: 01/25/25 08:46 Dose: 50 mg Documented By: GUS Pt Owned Med ( Dulaglutide [ Trulicity] 3 Mg/0.5 Ml) 1 each SUBCUT We [facility] Omeprazole (Omeprazole 40 Mg Capsule.Dr) 40 mg PO BID@0630,1630 [facility] Last Admin: 01/25/25 08:46 Dose: 40 mg Documented By: GUS Ondansetron HCl (Ondansetron Hcl 4 Mg/2 Ml Vial) 4 mg IVPUSH Q8H PRN PRN Reason: Nausea and Vomiting Paroxetine HCl (Paroxetine Hcl 40 Mg Tablet) 40 mg PO DAILY [facility] Last Admin: 01/25/25 08:47 Dose: 40 mg Documented By: GUS Polyethylene Glycol (Polyethylene Glycol 3350 17 Gm Powd.Pack) 17 gm PO DAILY PRN PRN Reason: Constipation Pravastatin Sodium (Pravastatin Sodium 20 Mg Tablet) 20 mg PO DAILY [facility] Last Admin: 01/25/25 12:19 Dose: 20 mg Documented By: JOY Pregabalin (Pregabalin 100 Mg Capsule) 100 mg PO TID [facility] Last Admin: 01/25/25 14:32 Dose: 100 mg Documented By: JOY Senna (Sennosides 8.6 Mg Tablet) 17.2 mg PO BEDTIME [facility] Last Admin: 01/24/25 21:49 Dose: 17.2 mg Documented By: TSAVIL Sodium Chloride (0.9 % Sodium Chloride Flush 3 Ml Syringe) 3 ml IVFLUSH QSHIFT [facility] Last Admin: 01/25/25 14:35 Dose: 3 ml Documented By: JOY Vitamin D (Cholecalciferol (Vitamin D3) 25 Mcg Tablet) 50 mcg PO DAILY [facility] Last Admin: 01/25/25 08:46 Dose: 50 mcg Documented By: GUS Labs 01/24/25 06:00 01/25/25 13:21 Labs: Laboratory Results - last 24 hr 01/24/25 01/24/25 01/24/25 06:00 16:42 18:14 Anion Gap Estim Creat Clear Calc Estimated GFR POC Glucose 172 H 161 H Random Glucose Calcium Ionized Calcium 6.2 H 01/24/25 01/25/25 01/25/25 22:02 01:12 07:15 Anion Gap 14 Estim Creat Clear Calc 19.0 Estimated GFR 22 POC Glucose 144 H 128 H Random Glucose 168 H Calcium 10.5 H D Ionized Calcium 01/25/25 01/25/25 11:19 13:21 Anion Gap 13 Estim Creat Clear Calc 25.2 Estimated GFR 28 POC Glucose 140 H Random Glucose 163 H Calcium 10.1 Ionized Calcium Microbiology Microbiology Results: Microbiology 01/24/25 00:16 Blood Culture - Preliminary Blood - Venous No growth after 24 hours. 01/24/25 00:23 Blood Culture - Preliminary Blood - Venous No growth after 24 hours. Assessment and Plan (1) Acute kidney injury superimposed on CKD: Status: Acute Plan 79 yo female with PMH diabetes, GOPAL on CPAP, anemia, GERD, IBS, peripheral neuropathy, chronic kidney disease stage 3, gout, , Gitelman syndrome, NSTEMI, hypertension, dyslipidemia, large hiatal hernia, diverticulosis, fatty liver and UTI being admitted for pneumonia. Patient has had issues with recent UTI and was also started on diuretic this past Thursday. Acute hypoxic respiratory failure sce to penumonia Continue oxygen, antibiotics, cultures pending. Pleural effusion: Does not seem to be in CHF Telemetry cardiology eval noted- hold diruetics MAGALY on chronic kidney disease stage 3,hyponatremia repleting the electrolytes. She has known Gitelman syndrome and Nephrology is following her closely. given iv ns -sodium imprvoing to 124-129 Hypercalcemia -Albumin level is normal -Add ionized calcium level -Recent workup for parathyroid issues, recent labs pending -Hold calcium citrate Hypercalcemia improved with the hydration. Nephrology following Insulin-dependent diabetes -Sliding scale insulin -Diabetic diet DVT prophylaxis: Heparin subQ PPI prophylaxis: Omeprazole Ongoing need: Acute hypoxemic respiratory failure /pneumonia, multiple electrolytic abnormalities and MAGALY: Need IV antibiotic, renal function electrolyte monitoring. Quality Stroke Does the patient have a stroke diagnosis?: No Reason for No Anti-thrombotic by Day Two: N/A - Med Ordered VTE Prior VTE?: No VTE Risk Level:: Medical - moderate - high VTE Device Contraindication: N/A - Device Ordered VTE Drug Contraindication: N/A - Med Ordered
[2025-01-25] MEDS: DULAGLUTIDE 3 MG/0.5 ML 1 EACH SUBCUT (15:50)
[2025-01-25 16:08] LABS: Glucose, Whole Blood 179 mg/dL (60-115)
[2025-01-25 19:35] LABS: Anion Gap 12 (12-20); Blood Urea Nitrogen 42 mg/dL (9-16); Calcium 10.1 mg/dL (8.4-10.2); Carbon Dioxide 26 mmol/L (22-29); Chloride 96 mmol/L (96-108); Creatinine Clr Calc Pharmacy 24.1; Estimated Glomerular Filt Rate 26; Potassium 4.6 mmol/L (3.3-5.1); Sodium 129 mmol/L (135-145)
[2025-01-25 21:31] LABS: Glucose, Whole Blood 171 mg/dL (60-115)
[2025-01-26] VITALS (7 sets, daily range): BP systolic 107–125; BP diastolic 48–58; PULSE 56–66; RESP 16–20; TEMP 36.2–36.9; O2SAT 93–99; BMI 35.8
[2025-01-26] MEDS: 0.9 % Sodium Chloride Flush 3 ML SYRINGE IVFLUSH ×2 (05:39→20:13)
[2025-01-26 07:25] LABS: Glucose, Whole Blood 117 mg/dL (60-115)
[2025-01-26] MEDS: Metoprolol Succinate ER 25 MG TAB.ER.24H PO ×2 (09:25→20:12)
[2025-01-26] MEDS: PARoxetine HCL 40 MG TABLET PO (09:27)
[2025-01-26] MEDS: Lipase/Prot/Amylase 24/76/120K 1 CAP CAPSULE.DR 2 CAP PO ×3 (09:27→17:10)
[2025-01-26] MEDS: Mirabegron 50 MG TAB.ER.24H PO (09:27)
[2025-01-26] MEDS: Calcium Oyster Shell Elemental 500 MG TABLET PO ×2 (09:28→20:12)
[2025-01-26 10:58] LABS: Anion Gap 10 (12-20); Blood Urea Nitrogen 37 mg/dL (9-16); Calcium 9.6 mg/dL (8.4-10.2); Carbon Dioxide 28 mmol/L (22-29); Chloride 99 mmol/L (96-108); Creatinine Clr Calc Pharmacy 25.3; Estimated Glomerular Filt Rate 28; Potassium 4.5 mmol/L (3.3-5.1); Sodium 132 mmol/L (135-145)
[2025-01-26 11:06] LABS: Glucose, Whole Blood 133 mg/dL (60-115)
--- NOTE | 2025-01-26 13:16 | HO.WOUND ---
Wound Consult: Initial 79yr old?female admitted to [facility] on 01/24/25 - See progress notes and H&P for detailed history.? Wound consult placed for sacrum.? Patient agreeable to assessment and photo documentation.? Patient reports she suffers from incontinence at baseline - urinary. She reports she wears briefs at home. She reports she has had a injury to the area of concerns at various times she reports sometimes it open and she treats with over the counter bacitracin and then it closes again. She has good insight that friction is from scooting to get out of her chair and wet brief play a role in wound development. She was agreeable to using barrier cream to aid in protection from friction and moisture. she currently has a purewick in use that she reports is working. She reports not being strong enough to ambulate to bathroom at this time. Sacral foam dressing in place and dry will allow for protection from moisture and friction and aid in pressure redistribution. Sacrum Etiology: ?MASD with friction ?Present on Admission Wound Bed: pink red blanchable tissue - darker noted along base of gluteal fold remains blanchable and intact left side with puckering and evidence of prior skin injury scar tissue noted - evidence of friction noted Drainage / Odor: None noted at this time as tissue remains intact at this is Edges: ? irregular Sara wound: pink intact tissue ? No Induration, Fluctuance or Warmth noted Pain: denies Goals of Treatment: ? Off load pressure and barrier cream or foam to protect from friction and moisture Recommendations: 1. Turn and Reposition every 2 hours and as needed for patient comfort.? Use pillows or wedges to support off loading positions. 2. Off Load all bony prominences with use of pillows and heel boots if needed.? Apply Preventative foams where needed. ? 3. Monitor for incontinence and moisture control, use barrier creams when needed for prevention and treatment. 4. Provide adequate and supplemental nutrition.? 5. Order low air loss mattress. 6. When applicable maintain blood glucose levels per Providers order. Sacrum? - Off Load Pressure with Q2 hr turns and use of pillows - Routine cleansing.? Apply skin prep allow to dry.? Cover with foam dressing to aid in off loading and protection from friction. Change every 3 days and PRN. Alternative: Off Load Pressure with Q2 hr turns and use of pillows - Cleanse with PH balance spray or wipes, pat dry. ?Apply thin layer of barrier cream to affected area.? Apply twice daily and Reapply thin layer PRN after each episode of incontinence. Re-consult wound care Nurse for wound deterioration or wound changes.
[2025-01-26 16:36] LABS: Glucose, Whole Blood 107 mg/dL (60-115)
--- NOTE | 2025-01-26 17:38 | P.PNIM_ITS ---
Subjective Subjective Date of Service: 01/26/25 Interval History: pneumonia Review of Systems sob improving has cough Review of Systems: Yes all other systems are reviewed and are negative Physical Exam 2 Vital Signs: Vital Signs: Last Vital Signs Temp 97.4 F 01/26/25 15:33 Pulse 61 01/26/25 15:33 Resp 18 01/26/25 15:33 BP 125/56 L 01/26/25 15:33 Pulse Ox 95 01/26/25 15:33 O2 Del Method Room Air 01/26/25 15:33 O2 Flow Rate 3 01/26/25 07: Oxygen Flow Rate 2 01/23/25 23:32 BMI result Body Mass Index 35.8 Appearance: Alert.? Oriented X3.? cvs: [id number], [id number] . res: florencia entry diminshed left >right. abd: no rebound or guarding ,nt, bs present. ext pulses present , no cyanosis . neuro: axo3 , nonfocal. Objective Data Active Medications Acetaminophen (Acetaminophen 325 Mg Tablet) 650 mg PO Q6H PRN PRN Reason: Pain, Mild 1-3,fever,headache Last Admin: 01/25/25 21:42 Dose: 650 mg Documented By: HOLLY Albuterol Sulfate (Albuterol Sulfate 90 Mcg 8 Gm Inhaler) 2 puff INHALE Q6H PRN PRN Reason: bronchospasm/ sob Albuterol/Ipratropium (Albuterol/Iprat 2.5/0.5mg 3 Ml Ampul.Neb) 3 ml INHALE Q4H PRN PRN Reason: Shortness of Breath/Wheezing Lipase/Protease/Amylase (Lipase/Prot/Amylase 24/76/120k 1 Cap Capsule.) 2 cap PO TIDAC [facility] Last Admin: 01/26/25 17:10 Dose: 2 cap Documented By: JOY Ascorbic Acid (Ascorbic Acid 500 Mg Tablet) 1,000 mg PO DAILY [facility] Last Admin: 01/26/25 09:26 Dose: 1,000 mg Documented By: JOY Calcium Carbonate (Calcium Carbonate 750 Mg Tab.Chew) 750 mg PO Q4H PRN PRN Reason: Heartburn Calcium Carbonate (Calcium Oyster Shell Elemental 500 Mg Tablet) 500 mg PO BID [facility] Last Admin: 01/26/25 09:28 Dose: 500 mg Documented By: JOY Ceftriaxone Sodium (Ceftriaxone Sodium 1 Gm Vial) 1 gm IVPUSH BEDTIME [facility] Last Admin: 01/25/25 21:41 Dose: 1 gm Documented By: HOLLY Cyanocobalamin (Cyanocobalamin (Vitamin B-12) 1,000 Mcg Tablet) 1,000 mcg PO DAILY [facility] Last Admin: 01/26/25 09:25 Dose: 1,000 mcg Documented By: JOY Dextrose (Dextrose 50 % 25 Gm/50 Ml Syringe) 25 gm IVPUSH Q15M PRN; Protocol PRN Reason: per Hypoglycemia Standing Ord. Diphenoxylate HCl/Atropine (Diphenoxylate/Atrop 2.5/0.025 Tablet) 1 tab PO QID [facility] Last Admin: 01/26/25 17:12 Dose: 1 tab Documented By: JOY Duloxetine HCl (Duloxetine Hcl 20 Mg Capsule.Dr) 20 mg PO DAILY [facility] Last Admin: 01/26/25 09:26 Dose: 20 mg Documented By: JOY Glucose (Glucose Gel 15 Gm Gel..Gram.) 15 gm PO Q15M PRN; Protocol PRN Reason: per Hypoglycemia Standing Ord. Heparin Sodium (Porcine) (Heparin Sodium,Porcine 5,000 Unit/Ml Vial) 5,000 unit SUBCUT Q12H [facility] Last Admin: 01/26/25 09:28 Dose: 5,000 unit Documented By: JOY Azithromycin 500 mg/ Sodium (Chloride) 250 mls @ 125 mls/hr IV BEDTIME [facility] Last Infusion: 01/25/25 23:41 Dose: Infused Documented By: HOLLY Sodium Chloride (Ns) 1,000 mls @ 75 mls/hr IVCONT .[id number] [facility] Last Admin: 01/26/25 14:58 Dose: 75 mls/hr Documented By: JOY Insulin Human Lispro (Insulin Lispro 100 Unit/Ml 3 Ml Vial) 0 unit SUBCUT QIDACHS [facility]; Protocol Last Admin: 01/26/25 16:42 Dose: Not Given Documented By: JOY Non-Admin Reason: No Insulin Coverage Lactic Acid (Ammonium Lactate 12 % Cream 140 Gm Tube) 1 appl TOPICAL BID [facility]; Protocol Last Admin: 01/26/25 09:38 Dose: Not Given Documented By: JOY Non-Admin Reason: Med Not Available Loperamide HCl (Loperamide Hcl 2 Mg Capsule) 2 mg PO Q6H PRN PRN Reason: Loose Stool Magnesium Hydroxide (Milk Of Magnesia 30 Ml Oral.Susp) 30 ml PO DAILY PRN PRN Reason: Constipation Melatonin (Melatonin 3 Mg Tablet) 6 mg PO BEDTIME PRN PRN Reason: Insomnia Last Admin: 01/25/25 21:42 Dose: 6 mg Documented By: HOLLY Methenamine Hippurate (Methenamine Hippurate 1 Gm Tablet) 1 gm PO DAILY [facility] Last Admin: 01/26/25 09:27 Dose: 1 gm Documented By: JOY Metoprolol Succinate (Metoprolol Succinate Er 25 Mg Tab.Er.24h) 25 mg PO BID [facility]; Protocol Last Admin: 01/26/25 09:25 Dose: 25 mg Documented By: JOY Mirabegron (Mirabegron 50 Mg Tab.Er.24h) 50 mg PO DAILY [facility] Last Admin: 01/26/25 09:27 Dose: 50 mg Documented By: JOY Pt Owned Med ( Dulaglutide [ Trulicity] 3 Mg/0.5 Ml) 1 each SUBCUT We [facility] Last Admin: 01/25/25 15:50 Dose: 1 each Documented By: JOY Omeprazole (Omeprazole 40 Mg Capsule.Dr) 40 mg PO BID@0630,1630 [facility] Last Admin: 01/26/25 17:10 Dose: 40 mg Documented By: JOY Ondansetron HCl (Ondansetron Hcl 4 Mg/2 Ml Vial) 4 mg IVPUSH Q8H PRN PRN Reason: Nausea and Vomiting Paroxetine HCl (Paroxetine Hcl 40 Mg Tablet) 40 mg PO DAILY [facility] Last Admin: 01/26/25 09:27 Dose: 40 mg Documented By: JOY Polyethylene Glycol (Polyethylene Glycol 3350 17 Gm Powd.Pack) 17 gm PO DAILY PRN PRN Reason: Constipation Pravastatin Sodium (Pravastatin Sodium 20 Mg Tablet) 20 mg PO DAILY [facility] Last Admin: 01/26/25 09:25 Dose: 20 mg Documented By: JOY Pregabalin (Pregabalin 100 Mg Capsule) 100 mg PO TID [facility] Last Admin: 01/26/25 14:57 Dose: 100 mg Documented By: JOY Senna (Sennosides 8.6 Mg Tablet) 17.2 mg PO BEDTIME [facility] Last Admin: 01/25/25 21:42 Dose: 17.2 mg Documented By: HOLLY Sodium Chloride (0.9 % Sodium Chloride Flush 3 Ml Syringe) 3 ml IVFLUSH QSHIFT [facility] Last Admin: 01/26/25 14:59 Dose: Not Given Documented By: JOY Non-Admin Reason: IV Running Vitamin D (Cholecalciferol (Vitamin D3) 25 Mcg Tablet) 50 mcg PO DAILY [facility] Last Admin: 01/26/25 09:26 Dose: 50 mcg Documented By: JOY Labs 01/24/25 06:00 01/26/25 10:16 Labs: Laboratory Results - last 24 hr 01/25/25 01/25/25 01/26/25 19:14 20:24 05:41 Anion Gap 12 Estim Creat Clear Calc 24.1 Estimated GFR 26 POC Glucose 171 H Random Glucose 164 H Calcium 10.1 Urine Osmolality 208 L Ur Random Sodium 25.0 Urine Creatinine 31.01 01/26/25 01/26/25 01/26/25 07:04 10:16 11:01 Anion Gap 10 L Estim Creat Clear Calc 25.3 Estimated GFR 28 POC Glucose 117 H 133 H Random Glucose 143 H Calcium 9.6 Urine Osmolality Ur Random Sodium Urine Creatinine 01/26/25 16:28 Anion Gap Estim Creat Clear Calc Estimated GFR POC Glucose 107 Random Glucose Calcium Urine Osmolality Ur Random Sodium Urine Creatinine Microbiology Microbiology Results: Microbiology 01/24/25 00:16 Blood Culture - Preliminary Blood - Venous No growth after 48 hours. 01/24/25 00:23 Blood Culture - Preliminary Blood - Venous No growth after 48 hours. Assessment and Plan (1) SOB (shortness of breath): Status: Acute Assessment and Plan: 79 yo female with PMH diabetes, GOPAL on CPAP, anemia, GERD, IBS, peripheral neuropathy, chronic kidney disease stage 3, gout, , Gitelman syndrome, NSTEMI, hypertension, dyslipidemia, large hiatal hernia, diverticulosis, fatty liver and UTI being admitted for pneumonia. Patient has had issues with recent UTI and was also started on diuretic this past Thursday. Acute hypoxic respiratory failure sce to penumonia Continue oxygen, antibiotics, cultures pending. Pleural effusion: Does not seem to be in CHF Telemetry cardiology eval noted- hold diruetics MAGALY on chronic kidney disease stage 3,hyponatremia repleting the electrolytes. She has known Gitelman syndrome and Nephrology is following her closely. given iv ns -sodium imprvoing to 132 Hypercalcemia -Albumin level is normal -Add ionized calcium level -Recent workup for parathyroid issues, recent labs pending -Hold calcium citrate Hypercalcemia improved with the hydration. Nephrology following Insulin-dependent diabetes -Sliding scale insulin -Diabetic diet DVT prophylaxis: Heparin subQ PPI prophylaxis: Omeprazole Ongoing need: Acute hypoxemic respiratory failure /pneumonia, multiple electrolytic abnormalities and MAGALY: Need IV antibiotic, renal function electrolyte monitoring Quality Stroke Does the patient have a stroke diagnosis?: No Reason for No Anti-thrombotic by Day Two: N/A - Med Ordered VTE Prior VTE?: No VTE Risk Level:: Medical - moderate - high VTE Device Contraindication: N/A - Device Ordered VTE Drug Contraindication: N/A - Med Ordered
--- NOTE | 2025-01-26 17:52 | P.CDIM_ITS ---
PROVIDER RESPONSE TEXT: To clarify, the appropriate diagnosis supported by the clinical indicators: Other (explain): possible aspirational pneumonitis QUERY TEXT: PHYSICIAN'S DOCUMENTATION REQUEST Date of Query: 01/26/2025 09:57 AM EDT Patient Name: Wanda Blum Admit Date: 01/24/2025 Dear Ramon Hale MD, A review of the medical record indicates additional documentation may be needed. Please review below and update the documentation accordingly. Clinical Indicators: H&P 01/24/25 - Pulmonary Edema - Unable to provide NS IV fluids due to pulmonary edema and bilateral pleural effusions. Chest Xray - Impression - Possible pulmonary edema. Short of breath, No CHF, acute hypoxic respiratory failure and pneumonia. Diuretics, antibiotics, Duo nebs Based on the above, could you please provide, in the Progress Notes, further specificity regarding the acuity and etiology of the pulmonary edema? Acute non-cardiac pulmonary edema due to fluid overload Acute non-cardiac pulmonary edema due to other cause Please specify other cause Acute pulmonary edema due to heart failure Please further specify the type and acuity Chronic pulmonary edema due to non-cardiac etiology Please specify cause Chronic pulmonary edema due to heart failure Please further specify the type and acuity Other (explain) Clinically unable to determine (explain) Thank you, Najma Mohan, CCS, CDIS Use of terms such as suspected, likely, concern for, or probable (associated with a specific diagnosis that is being evaluated, monitored, or treated as if it exists) are acceptable and can be coded in the inpatient setting, when documented at the time of discharge. Please use your independent medical judgment in providing your response. THIS QUERY IS PART OF THE PERMANENT MEDICAL RECORD
[2025-01-26 20:23] LABS: Glucose, Whole Blood 187 mg/dL (60-115)
[2025-01-26] MEDS: Albuterol/Iprat 2.5/0.5MG 3 ML AMPUL.NEB INHALE (20:23)
[2025-01-27 01:19] VITALS: RESP 18
[2025-01-27 03:27] VITALS: BP 142/65; PULSE 59; RESP 18; TEMP 36.4; O2SAT 94
[2025-01-27 05:50] VITALS: BMI 35.7
[2025-01-27 07:28] LABS: Glucose, Whole Blood 111 mg/dL (60-115)
[2025-01-27 07:39] VITALS: BP 137/64; PULSE 62; RESP 18; TEMP 36.2; O2SAT 99
[2025-01-27] MEDS: Calcium Oyster Shell Elemental 500 MG TABLET PO (08:11)
[2025-01-27] MEDS: Lipase/Prot/Amylase 24/76/120K 1 CAP CAPSULE.DR 2 CAP PO ×2 (08:11→12:07)
[2025-01-27] MEDS: Metoprolol Succinate ER 25 MG TAB.ER.24H PO (08:11)
[2025-01-27] MEDS: Mirabegron 50 MG TAB.ER.24H PO (08:11)
[2025-01-27] MEDS: PARoxetine HCL 40 MG TABLET PO (08:11)
[2025-01-27] MEDS: 0.9 % Sodium Chloride Flush 3 ML SYRINGE IVFLUSH (08:15)
--- NOTE | 2025-01-27 08:35 | MHC.CM.PN ---
CM MET W/PT TO DISCUSS DISPO P.T. RECOMMENDING STR, PT AGREEABLE AND PREFERRED SN[facility]'S ARE [facility], REFERRAL PLACED AND IMM 01/27/25 DELIVERED TO BEDSIDE.
--- NOTE | 2025-01-27 10:45 | PM.PNNEP ---
Subjective Subjective Date of Service: 01/27/25 Interval history: Following for hyponatremia and MAGALY patient denies new concerns/symptoms today. Physical Exam Vital Signs: Vital Signs: Last Vital Signs Temp 98.2 F 01/27/25 11:34 Pulse 66 01/27/25 11:34 Resp 17 01/27/25 11:34 BP 119/60 01/27/25 11:34 Pulse Ox 96 01/27/25 11:34 O2 Del Method Room Air 01/27/25 11:34 O2 Flow Rate 2 01/26/25 23:05 Oxygen Flow Rate 2 01/23/25 23:32 BMI result Body Mass Index 35.7 Const: General: no acute distress, alert and awake Resp: Effort & Inspection: normal respiratory effort and able to speak in complete sentences Auscultation: crackles Cardio: Rate: regular rate Rhythm: regular rhythm Heart sounds: S1 normal heart sound present and S2 normal heart sound present GI: Palpation (GI): Soft to palpation and nontender Skin: Rashes: no rashes Extrem: General: No edema Objective Data Labs 01/24/25 06:00 01/26/25 10:16 Labs: Laboratory Results - last 24 hr 01/26/25 01/26/25 01/27/25 16:28 20:20 07:20 POC Glucose 107 187 H 111 01/27/25 11:28 POC Glucose 144 H Microbiology Microbiology Results: Microbiology 01/24/25 00:16 Blood - Venous Blood Culture - Preliminary No growth after 48 hours. 01/24/25 00:23 Blood - Venous Blood Culture - Preliminary No growth after 48 hours. Procedures Date of Service Date of Service: 01/27/25 Assessment & Plan Assessment and plan (1) Acute kidney injury superimposed on CKD: Status: Acute (2) Acute hyponatremia: Status: Acute Plan MAGALY on CKD- likely pre-renal secondary to hypoperfusion from poor PO intake in combination with diuretic use prior to presentation. MAGALY resolved. Patient now at baseline renal function. hyponatremia- improving. May be SIADH secondary to pulmonary process, however, hypovolemia may also be contributing. urine studies are still pending, on bedside echo was volume depleted. Recommend keeping patient's fluid balance net even. May discharge from a renal standpoint. Recommend patient follow up with her outpatient orthotist/prosthetist at [facility] upon discharge. Discussed with Dr Berg. Time Spent With Patient Time: Total time managing care of this patient today ____ minutes. Progress Note: Quality Stroke Does the patient have a stroke diagnosis?: No Reason for No Anti-thrombotic by Day Two: N/A - Med Ordered
--- NOTE | 2025-01-27 11:31 | MHC.CM.PN ---
IMM 01/27/25, PT MEDICALLY CLEARED FOR DC TO STR AT [facility] AT 2PM, [facility] FOR BLS TRANSPORT
[2025-01-27 11:34] VITALS: BP 119/60; PULSE 66; RESP 17; TEMP 36.8; O2SAT 96
[2025-01-27 11:34] LABS: Glucose, Whole Blood 144 mg/dL (60-115)
--- NOTE | 2025-01-27 12:09 | PM.DS ---
DS: Providers Provider Date of Service: 01/27/25 Date of admission: 01/24/25 02:28 Date of discharge: 01/27/25 Primary care physician: BENOIT Ballesteros Consults: 01/24/25 04:33 Consult to Nephrology Routine Consulting Provider: [facility] Reason for consultation: Hyponatremia, MAGALY 01/24/25 04:34 Consult to Cardiology Routine Consulting Provider: [facility] Reason for consultation: murmur on exam, pulm edema Attending physician on discharge: Ramon Hale Discharging clinician: Ramon Hale DS: Diagnosis Discharge Diagnosis (1) Acute kidney injury superimposed on CKD: Status: Acute (2) Acute hyponatremia: Status: Acute DS: Summary Hospital Course Hospital Course: HPI:79 yo female with PMH diabetes, GOPAL on CPAP, anemia, GERD, IBS, peripheral neuropathy, chronic kidney disease stage 3, gout, , Gitelman syndrome, hypertension, large hiatal hernia, diverticulosis, dyslipidemia and UTI presents to ED via EMS with complaints of progressive weakness and then today new onset shortness of breath. Patient does not use oxygen at home. Patient states she she was recently started on antibiotics for UTI and also was started on a diuretic this past Thursday and after starting the diuretic felt weaker. Patient states due to her Gitelman's syndrome, per sales support advisor has told her not to start a diuretic as this will impair her magnesium levels even further. Magnesium level currently pending. Patient does have chronic kidney disease but there is evidence of MAGALY on admission. UA negative for UTI. Patient currently has a leukocytosis of 15.9 and is afebrile. Lactic acid is 2.0. Patient currently denies any abdominal pain, chest pain or shortness of breath at rest. Incidentally patient has murmur on exam and patient states she has never been told she had a murmur. Last echo was in 2023, and this was a limited technical study with EF of 55-60% but cardiac valves at the time were poorly visualized. Echo has been ordered. BNP is normal limits. Patient does have history of cardiac catheterization and was told her arteries were clear. Sodium 124, chloride 84 and this may be 2 to recent use of diuretic. Patient believes she was prescribed furosemide this past Thursday and patient has stopped the medication on her own after few days of use due to concerns over her magnesium level and renal function.. Calcium elevated at 12.1. Patient states she may have a problem with her parathyroid hormone. She has gone through recent testing and is waiting results. Patient also has evidence of MAGALY noting chronic kidney disease history. Blood pressure currently stable and patient will avoid nephrotoxic medications. Nephrology has been consulted. Hospital course: 79 yo female with PMH diabetes, GOPAL on CPAP, anemia, GERD, IBS, peripheral neuropathy, chronic kidney disease stage 3, gout, , Gitelman syndrome, NSTEMI, hypertension, dyslipidemia, large hiatal hernia, diverticulosis, fatty liver and UTI being admitted for pneumonia. Patient has had issues with recent UTI and was also started on diuretic this past Thursday (before this admission). Acute hypoxic respiratory failure sce to penumonia: Chest x-ray shows possible left lower lobe pneumonia: Patient was started on oxygen, antibiotics, blood culture sent. With the above supportive care patient seems to be improved significantly: Leukocytosis improved, hypoxia resolved, blood culture negative at 48 hours. Patient with a switched to p.o. antibiotics upon discharge-Ceftin and azithromycin. Checks x-ray: Incidental finding also question of pulmonary edema, trace Pleural effusion: Patient was seen by Cardiology and echo was done-EF 60-65%, patient is euvolemic, improved significantly with pneumonia treatment. Less likely pulmonary edema, stopped diuretics. Patient is to follow-up out patiently with her cardiology outpatient. MAGALY on chronic kidney disease stage 3,hyponatremia , She has known Gitelman syndrome and Nephrology is following her closely. recieved ivf and hyponatremia and magaly as well as hypercalcemia improved significantly. Nephrology recommended continue to hold diuretic until seen outpatient with Nephrology, repeat BMP in 1 week outpatient. Hypercalcemia Albumin level is normal, ionized calcium level as well as per h&P (Recent workup for parathyroid issues, recent labs pending) Hypercalcemia as above improved, further workup outpatient with Nephrology upon follow-up. seen by PT recomended rehab. plan: as above -in addition: ceftin 250 mg bid (7 days) , azithromycin 500 mg qd for 4 more days, please repeat chest imaging in 3-4 weeks to see resolution pneumonia. If any further symptoms go to nearest emergency room for evaluation. stop diuretics and moniter renal function electrolytes in 1 week, follow up outpatient with Nephrology further workup for electrolyte abnormalities. Further calcium use will be decided out patiently with Nephrology also. Considering underlying Gitelman syndrome-currently nephrology recommended to stop diuretics, discussed with the Cardiology suspicion of CHF low so avoid diuretics for now. Patient is to follow up outpatient with the Cardiology . Above management discussed with the patient in detail length she understand and in agreement with the above plan, time spent 40 minute. All questions answered, staff was present during conversation. Time Attestation Total time managing care of this patient today: 40 mintues. Discharge Coordination Time (in mins): 40 min Quality: Safe Use of Opioids Does Pt have an Active Cancer Diagnosis on the Problem List?: No Quality: Stroke Does the patient have a stroke diagnosis?: No Physical Exam Vital Signs: Vital Signs: Last Vital Signs Temp 98.2 F 01/27/25 11:34 Pulse 66 01/27/25 11:34 Resp 17 01/27/25 11:34 BP 119/60 01/27/25 11:34 Pulse Ox 96 01/27/25 11:34 O2 Del Method Room Air 01/27/25 11:34 O2 Flow Rate 2 01/26/25 23:05 Oxygen Flow Rate 2 01/23/25 23:32 BMI result Body Mass Index 35.7 Appearance: Alert.? Oriented X3.? cvs: rrr, [id number] . res: florencia entry improved, no rales or wheezing abd: no rebound or guarding ,nt, bs present. ext pulses present , no cyanosis . neuro: axo3 , nonfocal. DS: Data Data Completed and Pending Completed studies during hospitalization [Text1]: Procedures Insertion of Infusion Device into Right Basilic Vein, Percutaneous Approach (08/19/22) Labs on day of discharge: Laboratory Results - last 24 hr 01/26/25 01/26/25 01/27/25 16:28 20:20 07:20 POC Glucose 107 187 H 111 01/27/25 11:28 POC Glucose 144 H Preliminary micro results at discharge 01/24/25 00:16 Blood Culture - Preliminary Blood - Venous No growth after 48 hours. 01/24/25 00:23 Blood Culture - Preliminary Blood - Venous No growth after 48 hours. Imaging Chest x-ray: My impression: cxr: 1. Possible pulmonary edema. 2. Dense left lower lobe opacity with trace bilateral effusion Discharge Plan Discharge Anticipated Discharge Date/Time: 01/27/25 11:46 Patient Disposition: Xfer SNF Discharge Diagnosis: pneumonia , electrolytic abnormalities Referrals: [facility] [Outside] - 1 Week Referral Note: SHORT TERM REHAB Rosalino Vanegas MD [Physician, Nephrology] - 1 Week Mitul Garcia FNP- [Primary Care Provider, Internal Medicine] - 1 Week Discharge Medications: New cefuroxime axetil 250 mg Tablet 250 mg PO Q12H Qty: 13 0RF azithromycin 500 mg tablet 500 mg PO BEDTIME 1 Days Qty: 1 0RF Continued (DME) afo right foot See Rx Instructions .Route .MEDSUPPLY Qty: 1 0RF Rx Instructions: wear daily (DME) walker Misc See Rx Instructions .Route Qty: 1 1RF Rx Instructions: front with wheels only duloxetine 20 mg capsule,delayed release(DR/EC) 20 mg PO DAILY 90 Days Qty: 270 0RF Myrbetriq 50 mg tablet extended release 24 hr 50 mg PO DAILY 90 Days Qty: 90 3RF (DME) Briefs, Adult-Extra Large Misc See Rx Instructions .Route Qty: 100 5RF Rx Instructions: Overnight pull up briefs (extra absorbant), size XL, uses 3 per day Creon 24,000-76,000 -120,000 unit capsule,delayed release(DR/EC) 2 cap PO TIDAC Patient Comments: Prescribed by Dr. Rc Kathleen Rx Instructions: administer 2 caps with meals and/or 1 cap snacks (DME) incontinence pad, liner, disp Pad See Rx Instructions .Route Qty: 120 11RF Rx Instructions: large, superabsorbant, uses 4 per day (DME) blood-glucose meter [Accu-Chek Guide Glucose Meter] [facility] See Rx Instructions .Route Qty: 1 0RF Rx Instructions: check blood sugar three times daily (DME) disposable bedpads See Rx Instructions .Route .MEDSUPPLY Qty: 60 11RF Rx Instructions: Uses 2 daily (DME) Accu-Chek Guide test strips Strip See Rx Instructions .Route Qty: 100 11RF Rx Instructions: three times a day (DME) lancets [Unistik 2 Normal Lancet] 21 gauge misc See Rx Instructions .Route Qty: 200 1RF Rx Instructions: Test blood sugar twice a day metoprolol succinate 25 mg tablet extended release 24 hr 25 mg PO BID 90 Days Qty: 180 1RF cholecalciferol (vitamin D3) 50 mcg (2,000 unit) capsule 50 mcg PO DAILY Qty: 90 1RF (DME) lancets [Safety Lancets] 28 gauge misc See Rx Instructions .Route Qty: 200 1RF Rx Instructions: Test blood sugar twice a day-requires safety lancets mecobalamin (vitamin B12) 1,000 mcg tablet,disintegrating 1,000 mcg sublingual DAILY Qty: 90 1RF Rx Instructions: place tablet under tongue and allow to dissolve for at least30 secs before swallowing pravastatin 20 mg tablet 20 mg PO DAILY Qty: 90 1RF omeprazole 40 mg capsule,delayed release(DR/EC) 40 mg PO BID Qty: 180 1RF (DME) diaper,brief,adult,disposable Misc See Rx Instructions .Route Qty: 100 11RF Rx Instructions: Uses 3 per day pregabalin 100 mg capsule 100 mg PO TID 30 Days Qty: 90 3RF loperamide [Imodium A-D] 2 mg capsule 2 mg PO Q6H PRN (Reason: loose stool) 30 Days Qty: 120 3RF zhbgityanc-lqczomkizoibp-qprv 50-325-40 mg tablet 1 tab PO ONCE PRN (Reason: headache) 30 Days Qty: 30 0RF Rx Instructions: NOTE: can be addictive and can cause rebound Headaches. magnesium L-lactate 84 mg Tablet Extended Release 336 mg PO BID paroxetine HCl 40 mg tablet 40 mg PO DAILY dulaglutide 3 mg/0.5 mL pen injector 3 mg subcut WE Rx Instructions: Wednesdays (DME) blood sugar diagnostic Strip See Rx Instructions Not Applicable .MEDSUPPLY Qty: 10 Rx Instructions: As directed tramadol 50 mg tablet 50 mg PO BID PRN (Reason: Pain) diclofenac sodium [Voltaren Arthritis Pain] 1 % gel 4 g topical QID PRN (Reason: pain) Qty: 100 0RF Rx Instructions: apply to single knee, ankle, foot; for foot includes sole/toes/top of foot (DME) Diabetic shoes & 3 pair inserts Diabetic shoes & 3 pair insert kit See Rx Instructions .ROUTE .MEDSUPPLY Qty: 1 0RF Rx Instructions: as directed diphenoxylate-atropine 2.5-0.025 mg tablet 1 tab PO QID ascorbic acid (vitamin C) 1,000 mg tablet 1 g PO DAILY 90 Days Qty: 90 3RF methenamine hippurate 1 gram tablet 1 g PO DAILY 90 Days Qty: 90 3RF ammonium lactate 12 % cream 1 appl topical BID Qty: 140 1RF albuterol sulfate 90 mcg/actuation HFA aerosol inhaler 2 puff inhalation Q6H PRN (Reason: bronchospasm/ sob ) 30 Days Qty: 8.5 4RF Held calcium citrate 250 mg calcium tablet 500 mg PO BID Qty: 360 1RF Hold Instructions: Resume on 02/22/25. Discontinued spironolactone 50 mg tablet 50 mg PO BID Qty: 60 2RF Discharge Orders: Discharge Order (Routine); Ordered 01/27/25 Ordered By: Ramon Hale Diet: Advance to usual diet Activity on Discharge: As tolerated Stand Alone Forms: Patient Portal Discharge page Print Language: Belarusian Care Plan Goals: ceftin 250 mg bid (7 days) , azithromycin 500 mg qd for 4 more days, please repeat chest imaging in 3-4 weeks to see resolution pneumonia. If any further symptoms go to nearest emergency room for evaluation. stop diuretics and moniter renal function electrolytes in 1 week, follow up outpatient with Nephrology further workup for electrolyte abnormalities. Further calcium use will be decided out patiently with Nephrology also. Considering underlying Gitelman syndrome-currently nephrology recommended to stop diuretics, discussed with the Cardiology suspicion of CHF low so avoid diuretics for now. Patient is to follow up outpatient with the Cardiology . Health Concerns: As above. Plan of Treatment: As above. Assessment: As above. Patient Instructions: Pneumonia (DC)
== END 2025-01-27 14:29 | disposition skilled nursing facility (03) | DRG 193 ==
LOC: HO.ED 01-24 02:29 → HO.EDOVER 01-24 03:11 → HO.IMC 01-25 07:51
PROVIDERS: Nurse Practitioner Family; Physician Assistant Medical; Admitting Provider Internal Medicine; Emergency Provider Emergency Medicine; PCP Nurse Practitioner Family; Visit Provider Internal Medicine
DX: J18.9 Pneumonia, unspecified organism (principal); J96.01 Acute respiratory failure with hypoxia; J44.0 Chronic obstructive pulmonary disease with (acute) lower respiratory infection; N17.9 Acute kidney failure, unspecified; J91.8 Pleural effusion in other conditions classified elsewhere; E87.1 Hypo-osmolality and hyponatremia; E11.42 Type 2 diabetes mellitus with diabetic polyneuropathy; N18.32 Chronic kidney disease, stage 3b; E87.6 Hypokalemia; E11.22 Type 2 diabetes mellitus with diabetic chronic kidney disease; I12.9 Hypertensive chronic kidney disease with stage 1 through stage 4 chronic kidney disease, or unspecified chronic kidney disease; J69.0 Pneumonitis due to inhalation of food and vomit; N15.8 Other specified renal tubulo-interstitial diseases; E83.52 Hypercalcemia; G47.33 Obstructive sleep apnea (adult) (pediatric); E86.1 Hypovolemia; Z20.822 Contact with and (suspected) exposure to COVID-19; Z79.85 Long-term (current) use of injectable non-insulin antidiabetic drugs; Z79.899 Other long term (current) drug therapy
CPT/HCPCS: 36415; 71045; 80048; 80053; 81001; 82330; 82570; 82947; 83605; 83735; 83880; 83930; 83935; 84300; 84443; 84484; 85025; 87040; 87637; 93005; 93306; 94660; 97162; 97530; 99285; J0456; J0696; J1644; J3475; Q9957

== ENCOUNTER → 2025-01-23 23:40 | Outpatient (BNV) | payer MEDICARE, BC, OTHER, MEDICAID, SELFPAY | PROVIDERS: Emergency Provider Emergency Medicine; Visit Provider Radiology Diagnostic Radiology | DX: R91.8 Other nonspecific abnormal finding of lung field (principal) | CPT/HCPCS: 71045 ==

== ENCOUNTER 2025-01-24 02:28 | Outpatient (BNV) | payer MEDICARE, BC, OTHER, MEDICAID, SELFPAY | END 2025-01-25 15:00 | PROVIDERS: Admitting Provider Internal Medicine; Emergency Provider Emergency Medicine; PCP Nurse Practitioner Family; Visit Provider Internal Medicine Cardiovascular Disease | DX: I35.0 Nonrheumatic aortic (valve) stenosis (principal); I35.8 Other nonrheumatic aortic valve disorders; I51.7 Cardiomegaly | CPT/HCPCS: 93306 ==

== ENCOUNTER → 2025-01-24 02:28 | Outpatient (BNV) | payer MEDICARE, BC, OTHER, MEDICAID, SELFPAY | PROVIDERS: Admitting Provider Internal Medicine; Emergency Provider Emergency Medicine; Visit Provider Nurse Practitioner Family | DX: N17.9 Acute kidney failure, unspecified (principal); N18.9 Chronic kidney disease, unspecified; E87.1 Hypo-osmolality and hyponatremia | CPT/HCPCS: 99222; 99231 ==

== ENCOUNTER → 2025-01-24 02:28 | Outpatient (BNV) | payer MEDICARE, BC, OTHER, MEDICAID, SELFPAY | PROVIDERS: Admitting Provider Internal Medicine; Emergency Provider Emergency Medicine; Visit Provider Nurse Practitioner Family | DX: N17.9 Acute kidney failure, unspecified (principal); N18.9 Chronic kidney disease, unspecified; E87.1 Hypo-osmolality and hyponatremia | CPT/HCPCS: 99223; 99231; 99232; 99239; 99499 ==

== ENCOUNTER → 2025-01-24 02:28 | Outpatient (BNV) | payer MEDICARE, BC, OTHER, MEDICAID, SELFPAY | PROVIDERS: Admitting Provider Internal Medicine; Emergency Provider Emergency Medicine; Visit Provider Internal Medicine Cardiovascular Disease | DX: I10 Essential (primary) hypertension (principal) | CPT/HCPCS: 93010; 99223; 99233 ==

== ENCOUNTER 2025-02-23 13:41 | Outpatient (AMB) | payer MEDICARE, BC, OTHER, MEDICAID, SELFPAY ==
--- OUTSIDE RECORDS SUMMARY | 2024-11-28 11:30 | XMS_ITS ---
Author Organization [facility] Address [address] [place] [address] Care Team Providers Care Package Line Relief Operator Name Role Phone Mitul Mccrary Primary Care Provider Unav Quyen Hayden [phone] Encounters Encounter Location Date Provider Diagnosis [address] [address] 11/28/2024 Quyen De Leon Plan Of Treatment No Information Progress Notes * Wanda THOMPSON MDOB: (79 yo F)Acc No.[id number]:11/28/2024 Progress Note Patient: Ashwin CAROLYNDARWIN Wanda Pacheco Provider: Tito De Leon DPM :1945 A ge:79 Y S ex:Female Date:11/28/2024 Address:[address] [place], [place] [phone] Pcp:MARQUISE Morin Subjective: * Chief Complaints: * [...] Date: 11/28/2024 Generated for Danyi ng/Fasilviag/eTransmitting on: 02/23/2025 01:44 PM EDT
--- OUTSIDE RECORDS SUMMARY | 2025-02-23 13:45 | XMS_ITS | Patient Health Record ---
Author Organization [facility] Address [address] [place] [address] Care Team Providers Care News Camera Operator Name Role Phone MODESTAEDUARDO LYNN Primary Care Provider Giorgio Kathleen Jr Rc Unavailable Allergies Allergen (clinical drug ingredient) Drug/Non Drug Allergy documented on EMR Reaction Allergy Type Onset Date Status phenytoin Dilantin Unknown Drug Allergy Active sulfamethoxazole / trimethoprim Bactrim Unknown Drug Allergy Active plastic tape (uncoded) Unknown Allergy Active Results Component Value Reference Range Notes Pancreatic Elastase-1 Reviewed date:03/17/2024 08:54:42 AM Interpretation: Performing Lab:[facility], [address] [place] [id number] Notes/Report: Pancreatic Elastase-1 124 Adult and Pediatric Reference Ranges for Pancreatic Elastase-1: Normal: >200 mcg/g Moderate Pancreatic Insufficiency: 100-200 mcg/g Severe Pancreatic Insufficiency: <100 mcg/g Elastase-1 (E-1) assay results are expressed in mcg/g, which represent mcg E1/g feces. It is not necessary to interrupt enzyme substitution therapy. THIS TEST WAS PERFORMED AT: [employer] [facility] [place] [address] [place] [address] RUSLAN GRAY MD,PHD,CELSA Fecal Fat Qualitative Reviewed date:03/17/2024 08:54:34 AM Interpretation: Performing Lab:[facility], [address] [place] [phone] Notes/Report: Fecal Fat Qualitative ABNORMAL NORMAL THIS TEST WAS PERFORMED AT: [employer] [facility] [place] [address] [place] [address] RUSLAN GRAY MD,PHD,CELSA FL upper GI w air Reviewed date:01/06/2025 03:54:32 PM Interpretation: Performing Lab: Notes/Report: [address] [address] Fluoroscopy Report Signed Patient: Ranjan Thompson MR#: [id number] 58 : 1945 Acct:[id number] Age/Sex: 79 / F ADM Date: 01/06/25 Loc: HO.XRAY Attending Dr: Rc Kathleen MD Ordering Physician: Rc Kathleen MD Date of Service: 01/06/25 Procedure(s): FL upper GI w air Accession Number(s): [id number] cc: Rc Kathleen MD; Lynn Garcia [employer]- EXAMINATION: XR FLUOROSCOPY UPPER GI WITH AIR CLINICAL INFORMATION: Hiatal hernia, GERD COMPARISON: None available. TECHNIQUE: Upper GI air single contrast study was performed however limited as patient is unable to balance and move on her own. FINDINGS: Following oral administration of thin barium there is normal propagation bolus from the oral cavity through the pharynx, esophagus into a large hiatal hernia. There is no esophageal obstruction or narrowing seen. Delayed 15 minute KUB obtained reveals contrast within the remaining stomach duodenal bulb and the proximal jejunum. No obstruction seen. Incidental finding of L4-L5 posterior hardware for fusion and a right hip prosthesis. FLUOROSCOPY TIME: 1 minute 27 seconds DOSE AREA PRODUCT: 1928 uGy-m2 (microgray-meter squared) FL/FL upper GI w air IMPRESSION: Large nonreducible hiatal hernia. No obstruction, narrowing or mucosal abnormality seen, however limited.. Electronically signed by: John Romo MD 01/06/2025 10:02 AM EDT Dictated By: John Romo MD Signed By: <Electronically signed by John Romo MD in OV> 01/06/25 1002 DD/ 0830 TD/TT: 01/06/25 0843 Outreach Liaison: SAVAGE Reason For Referral No Information Medications Medication SIG (Take, Route, Frequency, Duration) Notes Start Date End Date Status Lfllxbzivb-ILDL-Wleaxojp Active Creon 46[address]39[address] UNIT 2 capsules with m eals and 1 capsule with snacks Orally for 30 days 03/17/2024 Active Magnesium Oxide 400 MG 4-5 tablet Orally daily Active DULoxetine HCl 20 MG Oral for 16 Active PARoxetine HCl 40 MG 1 tablet in the mor maria luisa Orally Once a day Active traMADol HCl Active Omeprazole 20 MG 1 capsule Orally Onc e a day Active Colyte with Flavor Packs 240 GM As directed Orally Over the specified time. for 1 day(s) 05/13/2023 Active Lyrica 50 MG 1 capsule Orally Thr ee times a day Active Pregabalin 100 MG Oral for 90 Active Pravastatin Sodium A ctive Myrbetriq Active Diphenoxylate-Atropine 2.5-0.025 MG TAKE 1 TABLET BY MOUTH EVERY 6 HOURSNEEDED for 30 days 11/16/2024 Active Spironolactone 50 MG 1 tablet Orally Twi ce a day Active Calcium Citrate Acti ve Vitamin D3 Active Trulicity 1.5 MG/0.5ML as directed Subcu taneous once a week Active Metoprolol Succinate ER 25 MG 1 tablet Orally Once a day Active Immunizations Vaccine Route Administration Date Status Comme nts Flu vaccine no Preserv 3 and > Unknown 04/04/2014 Admin istered Flu vaccine no Preserv 3 and > Unknown 06/05/2015 Admin istered Influenza Unknown 03/30/2018 Administered Influenza Unknown 04/19/2019 Administered Influenza Unknown 04/25/2020 Administered Influenza Unknown 03/20/2021 Administered Influenza Unknown 04/01/2022 Administered Influenza Unknown 05/10/2024 Administered Problems Problem Type SNOMED Code ICD Code Onset Dates Problem Status W/U Status Risk Notes Problem 82901597 Hypertension (I10) Active confirmed Problem 549704273 Abnormal celiac antibody panel (R89.4) Active confirmed Problem GERD (gastroesophageal reflux disease) (K21.9) Active confirmed Problem 57135972 Diarrhea, unspecified type (R19.7) Active confirmed Problem 42511505 Irritable bowel syndrome, unspecified type (K58.9) Active confirmed Problem 26757171 Exocrine pancreatic insufficiency (K86.81) Active confirmed Problem 44289625 Irritable bowel syndrome with both constipation and diarrhea (K58.2) Active confirmed Problem 46059569236855 Colon cancer screening declined (Z53.20) Active confirmed Problem 721975514 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 Vital Signs Temperature 97.1 degrees Fahrenheit 11/16/2024 Blood pressure diastolic 01 mm Hg 11/16/2024 Height 63 in 11/16/2024 Blood pressure systolic 001 mm Hg 11/16/2024 Weight 188 lbs 11/16/2024 BMI 33.3 kg/m2 11/16/2024 Encounters Encounter Location Date Provider Diagnosis [facility] [address] [place] [phone] 08/11/2024 Rc Kathleen Jr Gastroesophageal reflux disease K21.9 ; Exocrine pancreatic insufficiency K86.81 and Irritable bowel syndrome, unspecified type K58.9 [facility] [address] [place] [address] [address] [place] [phone] 11/16/2024 Rc Kathleen Jr Hiatal hernia K44.9 ; GERD (gastroesophageal reflux disease) K21.9 and Exocrine pancreatic insufficiency K86.81 [facility] [address] [place] [phone] 03/17/2024 Rc Kathleen Jr [facility] [address] [place] [phone] 01/06/2025 Rc Kathleen Jr Assessments Encounter Date Diagnosis [...] zero temperatures. Today's visit was 35 minutes. 11/16/2024 Hiatal hernia (ICD-10 - K44.9) We discussed he r symptoms today. At this time she currently appears to be doing well. She is concerned regarding her hiatal hernia and would like to have an upper GI series. This will be arranged. We discussed evaluation of hiatal hernias today. She will continue Lomotil for her diarrheal symptoms. Follow-up will be in 6 to 12 months pending the results of her upper GI series. 11/16/2024 GERD (gastroesophageal reflux disease) (ICD-10 - K21.9) We discussed he r symptoms today. At this time she currently appears to be doing well. She is concerned regarding her hiatal hernia and would like to have an upper GI series. This will be arranged. We discussed evaluation of hiatal hernias today. She will continue Lomotil for her diarrheal symptoms. Follow-up will be in 6 to 12 months pending the results of her upper GI series. 08/11/2024 Irritable bowel syndrome, unspecified type (ICD-10 - K58.9) She appears sta ble at this time. We discussed her issues in detail today including exocrine pancreas insufficiency, gastroesophageal reflux disease, and year-old bowel syndrome. She will continue her present regimen. She will followup in 2025 later in the year to avoid coming out in sub zero temperatures. Today's visit was 35 minutes. 11/16/2024 Exocrine pancreatic insufficiency (ICD-10 - K86.81) We discussed h er symptoms today. At this time she currently appears to be doing well. She is concerned regarding her hiatal hernia and would like to have an upper GI series. This will be arranged. We discussed evaluation of hiatal hernias today. She will continue Lomotil for her diarrheal symptoms. Follow-up will be in 6 to 12 months pending the results of her upper GI series. Plan Of Treatment Pending Test Test Name Order Date STOOL WBC 07/23/2020 OVA & PARASITES (O&P) 04/10/2022 OVA & PARASITES (O&P) 07/23/2020 PANCREATIC ELASTASE 02/18/2024 FECAL FAT QUAL 02/18/2024 CT PELVIS NO CONTRAST 04/20/2013 XR GI SERIES 11/16/2024 STOOL WBC 04/10/2022 C DIFFICILE RFLX PCR 04/10/2022 C DIFFICILE RFLX PCR 07/23/2020 Stool Culture 07/23/2020 GI PANEL 04/10/2022 Future Test Test Name Order Date UPPER GI ENDOSCOPY 06/20/2021 COLONOSCOPY 10/29/2022 Insurance Providers Payer Name Payer Address Payer Phone Subscriber Number Group Number Insured Name Patient Relationship to Insured Coverage Start Date Coverage End Date MEDICARE OF [place] [address] [id number] [address] [id number] PRECHTL, RANJAN Self - patient is the insured [facility] [address] [place], [place] [id number] PRECHTL, RANJAN Self - patient is the insured [employer] [address] [place] [address] [phone] [id number] PRECHTL, RANJAN Self - patient is the [...] Irritable bowel syndrome Surgical History Surgery Date(Month/Year) Spinal surgery femur right side finger surgery carpal tunnel release-both hands left knee replacement 03/17/2013 shoulder surgery right hip replacement X4 Hospitalization History Reason Date(Month/Year) uti and pneumonia with sepsis 08/18/22
--- OUTSIDE RECORDS SUMMARY | 2025-02-23 13:45 | XMS_ITS | Clinical Summary ---
Author Organization [address] [facility] Address [address] [place] [address] Phone Care Team Providers Care Distribution Clerk Name Role Phone Fawad Ortega MD Primary Care Provider [phone] Encounters Date Type Department Care Team Description 02/17/2025 Lab Requisition [facility] [address] [place] [phone] Fawad Ortega MD Type 2 diabetes mellitus without complications ([facility] V24, [facility] V28); Magnesium deficiency 02/12/2025 Lab Requisition [facility] [address] [place] [phone] Fawad Ortega MD Type 2 diabetes mellitus without complications ([facility] V24, [facility] V28); Magnesium deficiency 02/04/2025 Lab Requisition [facility] [address] [place] [phone] Fawad Ortega MD Type 2 diabetes mellitus without complications ([facility] V24, [facility] V28); Magnesium deficiency 01/30/2025 Lab Requisition [facility] [address] [place] [phone] Fawad Ortega MD Type 2 diabetes mellitus with hyperosmolarity without nonketotic hyperglycemic-hyperosmol ar coma ([facility]) ([facility] V24, [facility] V28); Magnesium deficiency from Last 3 Months Social History Tobacco Use Types Packs/Day Years Used Date Smoking Tobacco: Never Assessed Comments Unknown Sex and Gender Information Value Date Recorded Sex Assigned at Not on file Legal Sex Female 3:38 AM EST Gender Identity Not on file Sexual Orientation Not on file Plan of Treatment Health Maintenance Due Date Last Done Comments Diabetes: Annual Foot Exam 1955 Diabetes: Annual Retina Eye Exam 1955 DTaP,Tdap,and Td Vaccines (1 - Tdap) 10/25/1963 Zoster Vaccines (1 of 2) 1994 RSV Immunization Adult Patients (1 - 1-dose 75+ series) 10/25/2019 COVID-19 Vaccine (1 - 2023-2 5 season) 2024 Depression Screening 07/20/2024 Cholesterol Screening (Lipid Panel) 01/30/2025 Diabetes: Annual Urine Albumin-Creatinine Ratio (uACR) 01/30/2025 Diabetes: Blood Sugar Contro l Test (HGBA1C) 01/30/2025 05/12/2023 Falls Risk Assessment 01/30/2025 Medicare Annual Wellness Visit 01/30/2025 Osteoporosis Screening (Bone Density Screening) 01/30/2025 Social Influencers of Health Screening 01/30/2025 Influenza Vaccine (#1) 2025 9, 07/04/2018, 03/20/2017 Diabetes: Annual GFR (Glomerular Filtration Rate) 02/13/2026 02/13/2025, 02/06/2025, 01/30/2025 Hypertension/CHF/CAD Annual BMP Blood Test 02/13/2026 02/13/2025, 02/06/2025, 01/30/2025 Pneumococcal Vaccine: 50+ Years Completed 07/04/2018, 04/05/2014 HIB Vaccines Aged Out No longer eligi ble based on patient's age to complete this topic HPV Vaccines Aged Out No longer eligi ble based on patient's age to complete this topic Hepatitis A Vaccines Aged Out No long er eligible based on patient's age to complete this topic Hepatitis B Vaccines Aged Out No long er eligible based on patient's age to complete this topic IPV Vaccines Aged Out No longer eligi ble based on patient's age to complete this topic MMR Vaccines Aged Out No longer eligi ble based on patient's age to complete this topic Meningococcal ACWY Vaccine Aged Out N o longer eligible based on patient's age to complete this topic Meningococcal B Vaccine Aged Out No l onger eligible based on patient's age to complete this topic RSV Immunization Patients Under 20 months Aged Out No longer eligible b ased on patient's age to complete this topic Varicella Vaccines Aged Out No longer eligible based on patient's age to complete this topic Procedures Procedure Name Priority Date/Time Associated Diagnosis Comments MAGNESIUM Routine 02/13/2025 8:31 AM EDT Type 2 diabetes mellitus without complications (CMS/HCC V24, CMS/HCC V28) Magnesium deficiency COMPLETE BLOOD COUNT Routine 02/13/2025 8:31 AM EDT Type 2 diabetes mellitus without complications (CMS/HCC V24, CMS/HCC V28) Magnesium deficiency COMPREHENSIVE METABOLIC PANEL Routine 02/13/2025 8:31 AM EDT Type 2 diabetes mellitus without complications (CMS/HCC V24, CMS/HCC V28) Magnesium deficiency COMPLETE BLOOD COUNT Routine 02/06/2025 5:27 AM EDT Type 2 diabetes mellitus without complications (CMS/HCC V24, CMS/HCC V28) Magnesium deficiency MAGNESIUM Routine 02/06/2025 5:24 AM EDT Type 2 diabetes mellitus without complications (CMS/HCC V24, CMS/HCC V28) Magnesium deficiency COMPREHENSIVE METABOLIC PANEL Routine 02/06/2025 5:24 AM EDT Type 2 diabetes mellitus without complications (CMS/HCC V24, CMS/HCC V28) Magnesium deficiency MAGNESIUM Routine 01/30/2025 5:57 AM EDT Type 2 diabetes mellitus with hyperosmolarity without nonketotic hyperglycemic-hyperosm olar coma ([facility]) (CMS/HCC V24, CMS/HCC V28) Magnesium deficiency COMPREHENSIVE METABOLIC PANEL Routine 01/30/2025 5:57 AM EDT Type 2 diabetes mellitus with hyperosmolarity without nonketotic hyperglycemic-hyperosm olar coma ([facility]) (CMS/HCC V24, CMS/HCC V28) Magnesium deficiency COMPLETE BLOOD COUNT Routine 01/30/2025 5:57 AM EDT Type 2 diabetes mellitus with hyperosmolarity without nonketotic hyperglycemic-hyperosm olar coma ([facility]) ([facility] V24, [facility] V28) Magnesium deficiency from Last 3 Months Results * (ABNORMAL) Complete blood count (02/13/2025 8:31 AM EDT) Only the most recent of3 resultswithin the time period is included. WBC 9.6 4.8 - 10.8 K/mcL LAB HEMETOLOGY METHOD 02/13/2025 10:45 AM [facility] RBC 3.90 3.80 - 4.80 M/mcL LAB HEMETOLOGY METHOD 02/13/2025 10:45 AM [facility] Hemoglobin 10.8(L) 11.5 - 16.0 g/dL LAB HEMETOLOGY METHOD 02/13/2025 10:45 AM [facility] Hematocrit 34.3(L) 35.0 - 47.0 % LAB HEMETOLOGY METHOD 02/13/2025 10:45 AM [facility] MCV 88.9 79.0 - 98.0 FL LAB HEMETOLOGY METHOD 02/13/2025 10:45 AM [facility] MCH 28.0 27.0 - 32.0 pcg LAB HEMETOLOGY METHOD 02/13/2025 10:45 AM [facility] MCHC 31.5(L) 32.0 - 37.0 g/dL LAB HEMETOLOGY METHOD 02/13/2025 10:45 AM [facility] RDW 13.5 11.0 - 15.0 % LAB HEMETOLOGY METHOD 02/13/2025 10:45 AM [facility] Platelets 406(H) 130 - 400 K/mcL LAB HEMETOLOGY METHOD 02/13/2025 10:45 AM [facility] MPV 10.7 7.0 - 11.0 FL LAB HEMETOLOGY METHOD 02/13/2025 10:45 AM EDT [facility] NRBC 0.0 <1.0 % LAB HEMETOLOGY METHOD 02/13/2025 10:45 AM EDT [facility] NRBC Absolute 0.00 <0.10 K/mcL LAB HEMETOLOGY METHOD 02/13/2025 10:45 AM EDT [facility] Blood Venous blood specimen / Unknown Venipuncture / Unknown 02/13/2025 8:31 AM EDT 02/13/2025 10:20 AM EDT us Fawad Ortega MD LAB BLOOD ORDERABLES Final Resu lt Performing Organization Address [facility]/ZIP Co de Phone Number [facility] [address] [place] [address], [place] [phone] * (ABNORMAL) Magnesium (02/13/2025 8:31 AM EDT) Only the most recent of3 resultswithin the time period is included. Magnesium 1.7(L) 1.9 - 2.6 mg/dL LAB CHEMISTRY METHOD 02/13/2025 11:10 AM EDT [facility] Blood Venous blood specimen / Unknown Venipuncture / Unknown 02/13/2025 8:31 AM EDT 02/13/2025 10:15 AM EDT us Fawad Ortega MD LAB BLOOD ORDERABLES Final Resu lt Performing Organization Address City/[facility]/ZIP Co de Phone Number [facility] [address] [place] [address], [place] [phone] * (ABNORMAL) Comprehensive metabolic panel (02/13/2025 8:31 AM EDT) Only the most recent of3 resultswithin the time period is included. Sodium 136 133 - 145 mmol/L LAB CHEMISTRY METHOD 02/13/2025 11:10 AM [facility] Potassium 4.1 3.5 - 5.5 mmol/L LAB CHEMISTRY METHOD 02/13/2025 11:10 AM [facility] Chloride 102 96 - 110 mmol/L LAB CHEMISTRY METHOD 02/13/2025 11:10 AM [facility] CO2 26 21 - 32 mmol/L LAB CHEMISTRY METHOD 02/13/2025 11:10 AM [facility] Anion Gap 8 3 - 11 LAB CHEMISTRY METHOD 02/13/2025 11:10 AM [facility] Glucose 128(H) 70 - 100 mg/dL LAB CHEMISTRY METHOD 02/13/2025 11:10 AM [facility] BUN 23 5 - 25 mg/dL LAB CHEMISTRY METHOD 02/13/2025 11:10 AM [facility] Creatinine 1.56(H) 0.50 - 1.10 mg/dL LAB CHEMISTRY METHOD 02/13/2025 11:10 AM [facility] eGFR 33(L) >=60 mL/min/1. 73m2 LAB CHEMISTRY METHOD 02/13/2025 11:10 AM [facility] Comment:Calculation based on the Chronic Kidney Disease Epidemiology Collaboration (CKD-EPI) equation refit without adjustment for race. BUN/Creatinine Ratio 14.7 LAB CHEMISTRY METHOD 02/13/2025 11:10 AM [facility] Calcium 9.3 8.5 - 10.5 mg/dL LAB CHEMISTRY METHOD 02/13/2025 11:10 AM [facility] AST (SGOT) 21 10 - 42 unit/L LAB CHEMISTRY METHOD 02/13/2025 11:10 AM [facility] ALT (SGPT) 14 10 - 60 unit/L LAB CHEMISTRY METHOD 02/13/2025 11:10 AM [facility] Alkaline Phosphatase 60 42 - 121 unit/L LAB CHEMISTRY METHOD 02/13/2025 11:10 AM EDT [facility] Total Protein 7.3 6.0 - 8.0 g/dL LAB CHEMISTRY METHOD 02/13/2025 11:10 AM EDT [facility] Albumin 3.4 3.2 - 5.0 g/dL LAB CHEMISTRY METHOD 02/13/2025 11:10 AM EDT [facility] Total Bilirubin 0.3 0.0 - 1.4 mg/dL LAB CHEMISTRY METHOD 02/13/2025 11:10 AM EDT [facility] Blood Venous blood specimen / Unknown Venipuncture / Unknown 02/13/2025 8:31 AM EDT 02/13/2025 10:15 AM EDT us Fawad Ortega MD LAB BLOOD ORDERABLES Final Resu lt [facility] [address] [place] [address], from Last 3 Months Insurance [facility] [place] [id number] MEDICAID - [place] [facility] Care Teams Distribution Clerk Relationship Specialty Start Date End Date Fawad Ortega MD [address] [place] [address] PCP - General Internal Medicine 01/30/25
--- OUTSIDE RECORDS SUMMARY | 2025-02-23 13:45 | XMS_ITS | Encounter Summary ---
Author Organization [facility] Address [address] [place] [address] Phone Care Team Providers Care Airframe Technical Officer Name Role Phone Mitul Garcia BAR HOST Primary Care Provider Reason for Visit * Reason Comments Med Refill Encounter Details Date Type Department Care Team (Late st Contact Info) Description 07/01/2022 Refill [facility] [address] [place] [phone] Balaji Nascimento MD Social History Tobacco Use [...] Upcoming Encounters Date Type Department Care Team ([facility] Contact Info) Description 04/04/2025 2:10 PM EDT Office Visit [facility] [address] [place] [address] Sarbjit Palumbo MD [address] [place] [address] [address] [place] [place] [address] documented as of this encounter Visit Diagnoses Not on filedocumented in this encounter Care Teams Airframe Technical Officer Relationship Specialty Start Date End Date Mitul Garcia NP [address] [place] [address] PCP - General 05/24/19 documented as of this encounter
--- NOTE | 2025-02-23 13:48 | MHC.PC.OV ---
Vital Signs 02/23/25 13:53 Height 5 ft 1 in Weight 184 lb BMI 34.8 BP 112/62 Blood Pressure Location Lt brachial Position Sitting Respiration 18 Pulse 70 Pulse Source Pulse Oximeter Temp 98.2 F Temp Source Oral Pulse Oximetry (%) 95 Oxygen Delivery Method Room Air Intake Visit Reasons: HDF ~ Post hospital discharge FU Intake Note: Pt is here today for HDF. Pt needs a refill on Trulicity and nystatin powder. Allergies adhesive tape Allergy (Severe, Verified 02/23/25 13:54) Blister from adhesive bandages and rash from plastic tape phenytoin (From Dilantin) Allergy (Severe, Verified 02/23/25 13:54) Rash sulfamethoxazole (From BACTRIM) Allergy (Unknown, Verified 02/23/25 13:54) UNKNOWN trimethoprim (From BACTRIM) Allergy (Unknown, Verified 02/23/25 13:54) UNKNOWN Tobacco use date assessed: 02/23/25 Fall risk assessment: No Falls in past year Last assessed Fall Risk: 02/23/25 Dental Screening Dental Screen Date: 02/23/25 Did you have a dental visit in the last 12 months?: Yes Did you have a dental problem in the last 6 months where you did not have access to dental care?: No Was dental information given to patient?: Patient has dentist HPI HPI Comments History of Present Illness Details Patient is an 79-year-old female with a past medical history of T2DM, CKD stage 3, HLD, GOPAL on CPAP, COPD, PAD, anemia, IBS, hyperparathyroidism, cardiomyopathy, NSTEMI peripheral neuropathy, Gitelman syndrome and osteoporosis who was admitted to [facility] with weakness and shortness of breath. She was recently started on antibiotics for UTI and also was started on furosemide a few days prior and after starting the diuretic, she felt weaker. Patient states due to her Gitelman's syndrome, per product management analyst has told her not to start a diuretic as this will impair her magnesium levels even further. While in the ED, her labs were notable for leukocytosis of 15.9 and is afebrile, sodium 124, chloride 84 likely due to recent use of diuretic, calcium 12.1. Lactic acid is 2.0. UA negative for UTI. Calcium elevated at 12.1. Chest x-ray showed possible LLL PNA, pulmonary edema and trace plural effusion. She was admitted for acute hypoxic respiratory failure 2/2 PNA and was started on antibiotics. Nephrology was consulted, they monitored her and recommended repeat BMP in 1 week as outpt. Cards was consulted, and echo was done-EF 60-65%. She was seen by PT who recommended rehab. PNA improved, labs improved and she was discharged on 01/27/25 with PO ceftin and azithromycin, recommendation to repeat CXR in 3-4 weeks for resolution, BMP in one week. She was admitted to [facility] on 01/27/2025 where she received PT and OT, finish her antibiotics and was discharged on 02/16/2025. She did not have repeat labs or CXR while there. Today, she tells me she has a little more of shortness of breath than her baseline, some mucus production, her fatigue has improved and she is feeling better overall. She has home PT/OT at home, OT once weekly and PT twice weekly and nursing visits. She has a 1 year follow up with Jacquelyn on 03/17. She see a [employer] Psychologist, Dr. Nix, she does not have a follow up appt with him yet. Patient is asking for an A1c today as she has not had one tested in almost 6 months. [facility] Medical History (Updated 02/23/25 @ 14:11 by Sarah Llamas PA-C) Acute kidney injury Sepsis Weakness SOB (shortness of breath) Hyperhidrosis Cataract AVN (avascular necrosis of bone) Type 2 diabetes mellitus with diabetic polyneuropathy Hiatal hernia IBS (irritable bowel syndrome) GERD (gastroesophageal reflux disease) On beta jody at home Restrictive lung disease Obesity (BMI 30-39.9) GOPAL on CPAP Anemia B12 deficiency Vitamin D deficiency Breast pain, left Chronic kidney disease, stage 3 Decreased pedal pulses Diabetes mellitus with complication Retinopathy Celiac disease Right rotator cuff tear Osteoarthritis Seizures Gout Neuropathy Gitelman disease Essential hypertension Age-related osteoporosis without current pathological fracture Type 2 diabetes mellitus with other diabetic kidney complication Proteinuria Dyslipidemia Type 2 diabetes mellitus with chronic kidney disease Adult BMI 30.0-30.9 kg/sq m Surgical History (Updated 02/04/25 @ 00:02 by Chico Pandey) History of esophagogastroduodenoscopy (EGD) S/P cardiac catheterization History of carpal tunnel surgery of right wrist History of back surgery Hx of colonoscopy History of total left knee replacement History of left shoulder replacement History of revision of total replacement of right hip joint Hx of fracture of fibula Family History Father No problems noted. Mother Cancer Diabetes Daughter Substance use disorder Mental health disorder Social History Household Members: Spouse and Children Household Members Other:: 2 daughter and their children Housing: House Are you a primary healthcare administrative assistant to a significant other at home: No Do you presently have visiting nurse or other home services: No Alcohol intake: unknown Patient Tobacco Use Status: Never used Tobacco Tobacco use type: Cigarette Years Smoked: 1963 e-Cigarette/Vaping Use: Never Used Second Hand Smoke Exposure: Yes Advance Directives Date on File: 08/26/22 service: No Current occupational status: retired Cognitive needs: No Hearing needs: No Vision needs: Yes Questionnaire Thrive Questionnaire Date Thrive assessed: 01/24/25 AUDIT C Alcohol Use Questionnaire (AUDIT-C) 1. How often do you have a drink containing alcohol?: Never 3. How often do you have six or more drinks on one occasion?: Never Total Score: 0 GUY-7 AMB Questionnaire GUY-7 Date GUY - 7 assessed: 02/02/24 Source: Developed by Drs. Stephen Porter, Susi Franco, Fredi Hewitt and colleagues, with an educational salina from [employer]. Review of Systems Const All systems reviewed & are unremarkable except as noted in HPI and below Physical exam (Primary Care) Vital Signs: Last Vital Signs Temp 98.2 F 02/23/25 13:53 Pulse 70 02/23/25 13:53 Resp 18 02/23/25 13:53 BP 112/62 02/23/25 13:53 Pulse Ox 95 02/23/25 13:53 Oxygen Delivery Method Room Air 02/23/25 13:53 BMI result Body Mass Index 34.8 Tobacco/Smoking Status: Tobacco use Status Tobacco use date assessed 02/23/25 02/23/25 13:59 Patient Tobacco Use Status Never used Tobacco 02/23/25 13:52 Tobacco use type Cigarette 02/23/25 13:52 e-Cigarette/Vaping Use Never Used 02/23/25 13:52 Thrive Assessment: Date of Thrive Assessment Date Thrive assessed 01/24/25 02/23/25 13:52 Results AMB Hemoglobin A1c AMB Hemoglobin A1c 7.0 % Last Edit by RADHIKA Tyler on 02/23/25 14:28 Coding Level of Care Code Est Pt Level 5 (71230) Diagnoses Hospital discharge follow-up Z09 Gitelman disease E83.42; E87.6 COPD (chronic obstructive pulmonary disease) J44.9 Type 2 diabetes mellitus with chronic kidney disease E11.22 Assessment & Plan Assessment & Plan (1) Hospital discharge follow-up: Code(s): Z09 - Encounter for follow-up examination after completed treatment for conditions other than malignant neoplasm Category: Medical Plan: - repeat chest x-ray - repeat CMP - please schedule an appointment to follow-up with your product management analyst. - please attend your cardiology appointment as scheduled on March 17 at 1pm. (2) Gitelman disease: Code(s): E83.42 - Hypomagnesemia; E87.6 - Hypokalemia Category: Medical Plan: as above (3) COPD (chronic obstructive pulmonary disease): Code(s): J44.9 - Chronic obstructive pulmonary disease, unspecified Category: Medical Plan: VSS though O2 sat 95%, slightly worse than normal SOB, will repeat CXR to ensure resolution of PNA. (4) Type 2 diabetes mellitus with chronic kidney disease: Code(s): E11.22 - Type 2 diabetes mellitus with diabetic chronic kidney disease Category: Medical Plan: A1c today is 7% Orders: Orders XR chest 2V Today Z87.01 - Personal history of pneumonia (recurrent) Comprehensive Met. Panel Today E83.42 - Hypomagnesemia, E87.6 - Hypokalemia AMB Hemoglobin A1c Today E11.22 - Type 2 diabetes mellitus with diabetic chronic kidney disease, Z13.9 - Encounter for screening, unspecified Medications: New nystatin 1 appl topical BID 60 grams 0RF 30 days
[2025-02-23 13:53] VITALS: BP 112/62; PULSE 70; RESP 18; TEMP 36.8; O2SAT 95; BMI 34.8
== END 2025-02-23 14:54 | disposition home or self-care (01) ==
LOC: HO.HMCC 13:42
PROVIDERS: PCP Nurse Practitioner Family; Visit Provider Physician Assistant
DX: E83.42 Hypomagnesemia (principal); E87.6 Hypokalemia; J44.9 Chronic obstructive pulmonary disease, unspecified; E11.22 Type 2 diabetes mellitus with diabetic chronic kidney disease; Z13.9 Encounter for screening, unspecified

== ENCOUNTER 2025-02-23 13:41 | Outpatient (REF) | payer MEDICARE, BC, OTHER, MEDICAID, SELFPAY ==
--- NOTE | ~2025-02-23 | XR_ITS ---
EXAMINATION: XR CHEST 2 VIEWS HISTORY: Z87.01 - Personal history of pneumonia (recurrent) COMPARISON: Comparison is made with the prior examination dated 01/23/2025. FINDINGS: PA and lateral views of the chest are submitted. The lungs are expanded and clear. There is no pleural effusion, pneumothorax, or pulmonary vascular congestion. The heart is normal in size. There is a large hiatal hernia. The aorta is calcified. There is degenerative disc disease of the spine. There is a severe compression deformity of a lower thoracic vertebral body without change. The patient is status post left shoulder arthroplasty. There is severe degenerative change of the right shoulder. XR/XR chest 2V IMPRESSION: Large hiatal hernia. No acute cardiopulmonary abnormality. Electronically signed by: Stephen Madden MD 02/23/2025 03:13 PM EDT
[2025-02-23 16:38] LABS: Alanine Aminotransferase 10 U/L (0-31); Albumin Level 3.9 g/dL (3.5-5.0); Alkaline Phosphatase 59 U/L (39-117); Anion Gap 15 (12-20); Aspartate Amino Transferase 28 U/L (5-31); Blood Urea Nitrogen 32 mg/dL (9-16); Calcium 9.6 mg/dL (8.4-10.2); Carbon Dioxide 25 mmol/L (22-29); Chloride 99 mmol/L (96-108); Estimated Glomerular Filt Rate 28; Potassium 3.9 mmol/L (3.3-5.1); Sodium 135 mmol/L (135-145); Total Protein 7.4 g/dL (6.5-8.0)
== END 2025-02-23 13:42 | disposition home or self-care (01) ==
LOC: HO.HMGCX 13:41
PROVIDERS: PCP Nurse Practitioner Family; Visit Provider Physician Assistant
DX: Z09 Encounter for follow-up examination after completed treatment for conditions other than malignant neoplasm (principal); E83.42 Hypomagnesemia; E87.6 Hypokalemia; J44.9 Chronic obstructive pulmonary disease, unspecified; E11.22 Type 2 diabetes mellitus with diabetic chronic kidney disease; N18.9 Chronic kidney disease, unspecified; Z87.01 Personal history of pneumonia (recurrent)
CPT/HCPCS: 36415; 71046; 80053; 83036; 99211; 99212

== ENCOUNTER → 2025-02-23 14:40 | Outpatient (BNV) | payer MEDICARE, BC, OTHER, MEDICAID, SELFPAY | PROVIDERS: PCP Nurse Practitioner Family; Visit Provider Radiology Diagnostic Radiology | DX: Z87.01 Personal history of pneumonia (recurrent) (principal); K44.9 Diaphragmatic hernia without obstruction or gangrene | CPT/HCPCS: 71046 ==

== ENCOUNTER 2025-03-15 15:14 | Outpatient (AMB) | payer MEDICARE, BC, OTHER, MEDICAID, SELFPAY ==
--- OUTSIDE RECORDS SUMMARY | 2024-11-28 11:30 | XMS_ITS ---
Author Organization [facility] Address [address] [place] [address] Care Team Providers Care Wire Frame Lampshade Maker Name Role Phone Mitul Mccrary Primary Care Provider Unav Quyen Hayden [phone] Encounters Encounter Location Date Provider Diagnosis [address] [address] 11/28/2024 Quyen De Leon Plan Of Treatment No Information Progress Notes * Wanda THOMPSON MDOB: (79 yo F)Acc No.[id number]:11/28/2024 Progress Note Patient: Ashwin CAROLYNDARWIN Wanda Pacheco Provider: Tito De Leon DPM :1945 A ge:79 Y S ex:Female Date:11/28/2024 Address:[address] [place], [place] [id number] Pcp:MARQUISE Morin Subjective: * Chief Complaints: * [...] Date: 11/28/2024 Generated for Danyi ng/Fasilviag/eTransmitting on: 03/15/2025 04:29 PM EDT
[2025-03-15 15:28] VITALS: BP 128/60; PULSE 77; O2SAT 92; BMI 34.8
--- NOTE | 2025-03-15 15:28 | MHC.OFFVIS ---
Vital Signs 03/15/25 15:28 Height 5 ft 1 in Weight 184 lb BMI 34.8 BP 128/60 Blood Pressure Location Lt brachial Position Sitting Pulse 77 Pulse Source Pulse Oximeter Pulse Oximetry (%) 92 Oxygen Delivery Method Room Air Intake Visit Reasons: COPD, SOB Intake Note: pt is here for follow up from rehab for pneumonia, and is now having short of breath with moving from room to room within her home, and also she has a lot of mucous she cannot get up and out. [place] Required: No Allergies adhesive tape Allergy (Severe, Verified 03/15/25 15:36) Blister from adhesive bandages and rash from plastic tape phenytoin (From Dilantin) Allergy (Severe, Verified 03/15/25 15:36) Rash sulfamethoxazole (From BACTRIM) Allergy (Unknown, Verified 03/15/25 15:36) UNKNOWN trimethoprim (From BACTRIM) Allergy (Unknown, Verified 03/15/25 15:36) UNKNOWN Medication List - Last Reconciled 03/15/25 by Unruly Siu MD [afo right foot wear daily] albuterol sulfate 90 mcg/actuation 2 puffs inhalation Q6H PRN 30 days ammonium lactate 12% 1 appl topical BID ascorbic acid (vitamin C) 1 g PO DAILY 90 days blood sugar diagnostic As directed blood sugar diagnostic (Accu-Chek Guide test strips) three times a day blood-glucose meter (Accu-Chek Guide Glucose Meter) check blood sugar three times daily cpjaytpffp-dlvkvpngixzox-kpwa 50-325-40 mg 1 tab PO ONCE PRN 30 days calcium citrate 500 mg (2 x 250 mg calcium) PO BID Held on 01/27/25. Instructions: Resume on 02/22/25. cholecalciferol (vitamin D3) 50 mcg PO DAILY [Diabetic shoes & 3 pair inserts as directed] diaper,brief,adult,disposable Uses 3 per day diaper,brief,adult,disposable (Briefs, Adult-Extra Large) Overnight pull up briefs (extra absorbant), size Large, uses 3 per day diclofenac sodium 1% (Voltaren Arthritis Pain) 4 grams topical QID PRN diphenoxylate-atropine 2.5-0.025 mg 1 tab PO QID [disposable bedpads Uses 2 daily] dulaglutide (Trulicity) 3 mg (0.5 mL) subcut QWEEK duloxetine 20 mg PO DAILY 90 days incontinence pad, liner, disp large, superabsorbant, uses 4 per day lancets (Unistik 2 Normal Lancet) Test blood sugar twice a day lancets (Safety Lancets) Test blood sugar twice a day-requires safety lancets hzvuyc-dawspwut-gmnifaz 24,000-76,000 -120,000 unit (Creon) 2 caps PO TIDAC loperamide (Imodium A-D) 2 mg PO Q6H PRN 30 days magnesium L-lactate ER 336 mg PO BID mecobalamin (vitamin B12) 1,000 mcg sublingual DAILY methenamine hippurate 1 g PO DAILY 90 days Myrbetriq ER (mirabegron) 50 mg PO DAILY 30 days NS nystatin 1 appl topical BID 30 days omeprazole 40 mg PO BID paroxetine HCl 40 mg PO DAILY pravastatin 20 mg PO DAILY pregabalin 100 mg PO TID 30 days tramadol 50 mg PO BID PRN walker front with wheels only Do you need a note to return to daycare/school/sports/work: No HPI HPI COPD, SOB: Details: THIS 79 YEARS OLD FEMALE, VERY PLEASANT , PREVIOUSLY KNOWN TO HAVE OBSTRUCTIVE SLEEP APNEA FOR PAST MANY YEARS AND HAS BEEN USING CPAP FAITHFULLY. SHE HAS MULTIPLE COMORBIDITIES. THIS TIME SHE WAS ADMITTED TO [facility] ON 01/24 AND DISCHARGED ON 01/27, 2 RE[facility]ILITY. MAIN REASON FOR ADMISSION WAS HYPONATREMIA. BUT SHE WAS ALSO TREATED FOR UTI AND POSSIBLE PNEUMONIA LEFT LOWER LOBE THE CHEST X-RAY SHOWED A DENSITY. REPEAT CHEST X-RAY ON 01/27, DID NOT SHOW ANY RESIDUAL DENSITY, HE COMPLETED THE COURSE OF ANTIBIOTICS. SHE NEEDED OXYGEN BUT AT THE REHAB FACILITY WAS TAKEN OFF THE OXYGEN. HER BREATHING GOT BETTER AFTER THE DISCHARGE HOME SHE CONTINUES TO HAVE SOME RESIDUAL COUGH AND HAS DIFFICULTY IN EXPECTORATING THE PHLEGM. SHE CONTINUES TO USE THE CPAP REGULARLY EVERY NIGHT. [facility] Medical History Acute kidney injury Sepsis Weakness SOB (shortness of breath) Hyperhidrosis Cataract AVN (avascular necrosis of bone) Type 2 diabetes mellitus with diabetic polyneuropathy Hiatal hernia IBS (irritable bowel syndrome) GERD (gastroesophageal reflux disease) On beta jody at home Restrictive lung disease Obesity (BMI 30-39.9) GOPAL on CPAP Anemia B12 deficiency Vitamin D deficiency Breast pain, left Chronic kidney disease, stage 3 Decreased pedal pulses Diabetes mellitus with complication Retinopathy Celiac disease Right rotator cuff tear Osteoarthritis Seizures Gout Neuropathy Gitelman disease Essential hypertension Age-related osteoporosis without current pathological fracture Type 2 diabetes mellitus with other diabetic kidney complication Proteinuria Dyslipidemia Type 2 diabetes mellitus with chronic kidney disease Adult BMI 30.0-30.9 kg/sq m Surgical History History of esophagogastroduodenoscopy (EGD) S/P cardiac catheterization History of carpal tunnel surgery of right wrist History of back surgery Hx of colonoscopy History of total left knee replacement History of left shoulder replacement History of revision of total replacement of right hip joint Hx of fracture of fibula Family History Father No problems noted. Mother Cancer Diabetes Daughter Substance use disorder Mental health disorder Social History Household Members: Spouse and Children Household Members Other:: 2 daughter and their children Housing: House Are you a primary resident care manager rn to a significant other at home: No Do you presently have visiting nurse or other home services: No Alcohol intake: unknown Patient Tobacco Use Status: Never used Tobacco Tobacco use type: Cigarette Years Smoked: 1963 e-Cigarette/Vaping Use: Never Used Second Hand Smoke Exposure: Yes Advance Directives Date on File: 08/26/22 service: No Current occupational status: retired Cognitive needs: No Hearing needs: No Vision needs: Yes Review of Systems Const All systems reviewed & are unremarkable except as noted in HPI and below Reports fatigue and Reports weight gain Eyes Reports no additional complaints ENT Reports no additional complaints Card Denies chest pain, Reports leg edema (MILD ) and Reports dyspnea on exertion Resp Reports as per HPI and Reports dyspnea on exertion GI Reports heartburn (CONTROLLED WITH MED) Musc Reports abnormal gait (PATIENT USING WHEELCHAIR FOR OUTDOORS), Reports back pain and Reports arthralgias Skin/Breast Reports system reviewed and no additional complaints, except as documented Neuro Reports abnormal gait (PATIENT USING WHEELCHAIR FOR OUTDOORS) Psych Reports no additional complaints Endo Reports fatigue Physical Exam Vital Signs: Last Vital Signs Pulse 77 03/15/25 15:28 BP 128/60 03/15/25 15:28 Pulse Ox 92 03/15/25 15:28 Oxygen Delivery Method Room Air 03/15/25 15:28 BMI result Body Mass Index 34.8 COULD NOT BE WEIGHED, SHE WAS IN THE WHEELCHAIR. Const General: comfortable, no acute distress, alert and awake Orientation/consciousness: patient oriented x3 HEENT Head: Yes normal to inspection General nose exam: No nasal polyps present and No nasal discharge present Face and sinus: Yes sinuses nontender Mouth: oropharynx normal Throat: Yes posterior oropharynx normal Eyes General: appearance normal, both eyes and all related structures Neck Neck: Yes normal visual inspection, Yes no lymphadenopathy, Yes trachea midline and Yes no JVD Thyroid: Thyroid normal Chest Chest palpation & inspection: normal inspection of the chest, normal palpation of entire chest wall and no tenderness Resp Other: PERCUSSION NOTE IS RESONANT. BREATH SOUNDS ARE QUITE DISTANT ESPECIALLY OVER THE BASILAR AREAS. THERE ARE A FEW FINE INSPIRATORY CREPITATIONS OVER THE BASES. Cardio Palpation: normal PMI Rate: regular rate Rhythm: regular rhythm Heart sounds: no gallops and no murmurs GI Palpation (GI): Soft to palpation, nontender, No hepatosplenomegaly present and no masses Auscultation: normal bowel sounds Back/Spine/Pelvis Thoracic/Lumbar Spine: thoracic and lumbar spine normal to inspection and thoraco-lumbar ROM limited Skin General skin exam: no rashes or lesions noted Neuro General: patient oriented x3, No gait normal (BEEN SHUNT IS NON AMBULATORY, AT HOME CAN WALK WITH A WALKER ) and no focal motor deficits Cranial nerves: Yes CN's II-XII intact bilaterally Extrem General: Yes normal to inspection, Yes no clubbing, cyanosis or edema and Yes no calf tenderness Psych Appearance: grossly normal Speech and movement: Normal speech and movement present Results Reviewed Results Reviewed: THE COMPLIANCE REPORT TO FOR THE LAST 30 NIGHTS SHOWS THAT SHE USES CPAP VERY REGULARLY EVERY NIGHT AND AVERAGE USE IT PER NIGHT IS 8 HOURS 36 MINUTES; SHE HAS CPAP OF 15 CM USING FULLFACE MASK. THERE IS SOME AIR LEAK BUT RESIDUAL AHI IS 2.9 Assessment & Plan Assessment & Plan (1) GOPAL on CPAP: Comment: SHE IS A CONFIRMED CASE OF SEVERE OBSTRUCTIVE SLEEP APNEA PER STUDY IN 2018. SHE HAS BEEN TREATED VERY WELL WITH THE USE OF CPAP, FULLFACE MASK OF SMALL SIZE AND PRESSURE. OF 15 CM. SHE LOVES HER CPAP AND IN FACT WITHOUT IT CAN NOT SLEEP. HER CPAP DEVICE WAS ALMOST 6 YEARS OLD , IT HAS BEEN REPLACED WITH A NEW CPAP DEVICE. SHE HAS DIFFICULTY IN USING THE FULLFACE MASK (DREAMWEAR THAT WAS PROVIDED TO HER. SHE HAS LOOKING FOR THE OLD STYLE OF FULLFACE MASK TO GO OVER HER NOSE. SHE LIKES TO HAVE A FULLFACE MASK WITH A SINGLE ELASTIC STRAPS THAT SHE CAN EASILY PUT ON, BECAUSE OF ROTATOR COUGH PROBLEM OF BOTH SHOULDERS SHE HAS DIFFICULTY TO PUT ON A MASK WITH MULTIPLE STRAP Code(s): G47.33 - Obstructive sleep apnea (adult) (pediatric); Z99.89 - Dependence on other enabling machines and devices Category: Medical Plan: COMMENDED FOR GOOD COMPLIANCE, AND WE WILL TALK TO THE [employer] AND SEE IF THEY CAN PROVIDE OR A SIMPLE FULLFACE TYPE OF MASK (2) Restrictive lung disease: Comment: HER PREVIOUS PULMONARY FUNCTION TESTING HAS SHOWN THAT SHE DOES NOT HAVE ANY OBSTRUCTIVE AIRWAY DISORDER. SHE DOES HAVE RESTRICTIVE LUNG DISEASE MAINLY DUE TO GROSS OBESITY. SHE DOES HAVE DIFFICULTY IN EXPECTORATING THE MUCUS SOMETIMES, AND MAY BE DUE TO BASILAR HYPOVENTILATION. THIS SYMPTOM IS SOMEWHAT MORE PRONOUNCED SINCE HER RECENT PNEUMONIA AND POST HOSPITAL DISCHARGE. Code(s): J98.4 - Other disorders of lung Category: Medical Plan: I THINK SHE WILL BE BETTER OF USING A NEBULIZER WITH BRONCHODILATOR SOLUTION, AT LEAST TWICE A DAY. AND I HAVE ORDERED A NEBULIZER UNIT. ALSO WILL SEND PRESCRIPTION FOR IPRATROPIUM-ALBUTEROL SOLUTION TO BE USED IN THE NEBULIZER Q 6 HOURS P.R.N. BUT AT LEAST TWICE A DAY. (3) COPD (chronic obstructive pulmonary disease): Comment: NOTED ABOVE THE PULMONARY FUNCTION TEST DID NOT SHOW ANY SIGNIFICANT OBSTRUCTIVE DISORDER. BUT CLINICALLY SHE DOES SEEM TO HAVE CHRONIC OBSTRUCTIVE PROBLEM, WHICH HAS BECOME SOMEWHAT MORE SYMPTOMATIC OFF TO RECENT ADMISSION. Code(s): J44.9 - Chronic obstructive pulmonary disease, unspecified Category: Medical Plan: NOTED UNDER THE RESTRICTIVE LUNG DISEASE, SHE WILL BE TREATED WITH IPRATROPIUM-ALBUTEROL SOLUTION TO BE USED IN THE NEBULIZER AT LEAST B.I.D.. (4) History of recent pneumonia: Comment: HER RECENT ADMISSION [facility] IN THE HOSPITAL 4 WEEKS AGO WAS DUE TO HYPONATREMIA BUT SHE WAS ALSO FOUND TO HAVE A DENSITY IN THE LEFT LOWER LOBE CONSIDERED PNEUMONIA AND TREATED WITH A COURSE OF CEFUROXIME AND AZITHROMYCIN. AT PRESENT SHE JUST HAS A FEW RESIDUAL CREPITATIONS OVER THE BASES. Code(s): Z87.01 - Personal history of pneumonia (recurrent) Category: Medical Plan: THE RESIDUAL COUGH WITH THICK MUCUS THAT SHE HAS WILL BE TREATED WITH THE USE OF NEBULIZED BRONCHODILATOR SOLUTION Medications: New ipratropium-albuterol 0.5 mg-3 mg(2.5 mg base)/3 mL 3 mL inhalation Q6H PRN 180 mL 4RF shortness of breath or wheezing AND COUGH 30 days Coding Level of Care Code Est Pt Level 4 (43983) Diagnoses GOPAL on CPAP G47.33; Z99.89 Restrictive lung disease J98.4 COPD (chronic obstructive pulmonary disease) J44.9 History of recent pneumonia Z87.01
--- OUTSIDE RECORDS SUMMARY | 2025-03-15 16:28 | XMS_ITS | Encounter Summary ---
Author Organization [facility] Address [id number] [place] [address] Care Team Providers Care Director Of Cardiac Rehabilitation Name Role Phone Fawad Ortega MD Primary Care Provider [phone] Encounter Details Date Type Department Care Team (Latest Contact Info) Description 02/24/2025 Lab Requisition [facility] - Main Lab [address] [facility] [place] [address] aFwad Ortega MD [address] [place] [address] Type 2 diabetes mellitus without complications (CMS/HCC V24, CMS/HCC V28); Magnesium deficiency Social History Tobacco Use Types Packs/Day Years Used Date Smoking Tobacco: Never Assessed Comments Unknown Sex and Gender Information Value Date Recorded Sex Assigned at Not on file Legal Sex Female 3:38 AM EST Gender Identity Not on file Sexual Orientation Not on file documented as of this encounter Plan of Treatment Not on file documented as of this encounter Visit Diagnoses Diagnosis Type 2 diabetes mellitus without complications (CMS/HCC V24, CMS/HCC V28) Magnesium deficiency Disorders of magnesium metabolism documented in this encounter Care Teams Director Of Cardiac Rehabilitation Relationship Specialty Start Date End Date Fawad Ortega MD [address] [place] [address] PCP - General Internal Medicine 01/30/25 documented as of this encounter
--- OUTSIDE RECORDS SUMMARY | 2025-03-15 16:29 | XMS_ITS | Encounter Summary ---
Author Organization [facility] Address [address] [place] [address] Phone Care Team Providers Care Podiatric Technician Name Role Phone Mitul Garcia REGULAR SENIOR CARE PROVIDER Primary Care Provider [phone] Reason for Visit * Reason Comments Med Refill Encounter Details Date Type Department Care Team (Late Contact Info) Description 11/02/2019 Refill [facility] [address] [place] [phone] Balaji Nascimento MD Social History Tobacco Use [...] Upcoming Encounters Date Type Department Care Team ([facility] Contact Info) Description 04/04/2025 2:10 PM EDT Office Visit [facility] [place], [address] [place] [address] Sarbjit Palumbo MD [address] [place] [address] [place] [place] [place] [address] documented as of this encounter Visit Diagnoses Not on filedocumented in this encounter Care Teams Podiatric Technician Relationship Specialty Start Date End Date Mitul Garcia NP [address] [place] [address] PCP - General 05/24/19 documented as of this encounter
--- OUTSIDE RECORDS SUMMARY | 2025-03-15 16:29 | XMS_ITS | Encounter Summary ---
Author Organization [facility] Address [address] [place] [address] Phone Care Team Providers Care Director Medical Name Role Phone Mitul Garcia CONCRETE BLOCK PLANT SUPERVISOR Primary Care Provider [phone] Reason for Visit * Reason Comments Med Refill Encounter Details Date Type Department Care Team (Late Contact Info) Description 10/17/2019 Refill [facility] [address] [place] [phone] Balaji Nascimento MD Social History Tobacco Use [...] Care Team ([facility] Contact Info) Description 04/04/2025 2:10 PM EDT Office Visit [facility] [place], [address] [place] [address] Sarbjit Palumbo MD [address] [place] [address] [address] [place] [address] documented as of this encounter Visit Diagnoses Not on filedocumented in this encounter Care Teams Director Medical Relationship Specialty Start Date End Date Mitul Garcia NP [address] [place] [address] PCP - General 05/24/19 documented as of this encounter
--- OUTSIDE RECORDS SUMMARY | 2025-03-15 16:29 | XMS_ITS | Encounter Summary ---
Author Organization [facility] Address [address] [place] [address] Phone Care Team Providers Care Vendor Quality Supervisor Name Role Phone Mitul Garcia SPEECH LANGUAGE SPECIALIST Primary Care Provider [phone] Reason for Visit * Reason Comments Med Refill Encounter Details Date Type Department Care Team (Late Contact Info) Description 10/20/2019 [facility]ill [facility] [address] [place] [address] Balaji Nascimento MD Social History Tobacco Use [...] Date Type Department Care Team ([facility] Contact Info) Description 04/04/2025 2:10 PM EDT Office Visit [facility] [place], [address] [place] [address] Sarbjit Palumbo MD [address] [place] [address] [place] [place] [place] [address] documented as of this encounter Visit Diagnoses Not on filedocumented in this encounter Care Teams Vendor Quality Supervisor Relationship Specialty Start Date End Date Mitul Garcia NP [address] [place] [address] PCP - General 05/24/19 documented as of this encounter
--- OUTSIDE RECORDS SUMMARY | 2025-03-15 16:29 | XMS_ITS | Patient Health Record ---
Author Organization [facility] Address [address] [place] [address] Care Team Providers Care Cook Restaurant Name Role Phone LYNN GARCIA Primary Care Provider Rc Galindo Jr [phone] Allergies Allergen (clinical drug ingredient) Drug/Non Drug Allergy documented on EMR Reaction Allergy Type Onset Date Status phenytoin Dilantin Unknown Drug Allergy Active sulfamethoxazole / trimethoprim Bactrim Unknown Drug Allergy Active plastic tape (uncoded) Unknown Allergy Active Results Component Value Reference Range Notes FL upper GI w air Reviewed date:01/06/2025 03:54:32 PM Interpretation: Performing Lab: Notes/Report: [facility] [address] [place] [address] Fluoroscopy Report Signed Patient: Ranjan Thompson MR#: [id number] 57 : 1945 Acct:[id number] Age/Sex: 79 / F ADM Date: 01/06/25 Loc: [facility] Attending Dr: Rc Kathleen MD Ordering Physician: Rc Kathleen MD Date of Service: 01/06/25 Procedure(s): FL upper GI w air Accession Number(s): [id number] cc: Rc Kathleen MD; Lynn Garcia [facility] EXAMINATION: XR FLUOROSCOPY UPPER GI WITH AIR [...] John Romo MD 01/06/2025 10:02 AM EDT RP Dictated By: John Romo MD Signed By: <Electronically signed by John Romo MD in OV> 01/06/25 1002 DD/ TD/TT: 01/06/25 0843 Clinical Reimbursement Specialist: SAVAGE Reason For Referral No Information Medications Medication SIG (Take, Route, Frequency, Duration) Notes Start Date End Date Status Cgahvubegh-XGDV-Oemvyhrv Active Creon [id number] UNIT 2 capsules with m eals and [...] Problem Status W/U Status Risk Notes Problem [id number] Hypertension (I10) Active confirmed Problem 830009742 Abnormal celiac antibody panel (R89.4) Active confirmed Problem Gastroesophageal reflux disease (600419913) GERD (gastroesophageal reflux disease) (K21.9) Active confirmed Problem 87675446 Diarrhea, unspecified type (R19.7) Active confirmed Problem 35721658 Irritable bowel syndrome, unspecified type (K58.9) Active confirmed Problem 95740764 Exocrine pancreatic insufficiency (K86.81) Active confirmed Problem 15762810 Irritable bowel syndrome with both constipation and diarrhea (K58.2) Active confirmed Problem [id number] Colon cancer screening declined (Z53.20) Active confirmed Problem 029469364 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 Vital Signs Temperature 97.1 degrees Fahrenheit 11/16/2024 Blood pressure diastolic 01 mm Hg 11/16/2024 Height 63 in 11/16/2024 Blood pressure systolic 001 mm Hg 11/16/2024 Weight 188 lbs 11/16/2024 BMI 33.3 kg/m2 11/16/2024 Encounters Encounter Location Date Provider Diagnosis [facility] [address] [place] [phone] 08/11/2024 Rc Kathleen Jr Gastroesophageal reflux disease K21.9 ; Exocrine pancreatic insufficiency K86.81 and Irritable bowel syndrome, unspecified type K58.9 [facility] [address] [place] [phone] 11/16/2024 Rc Kathleen Jr Hiatal hernia K44.9 ; GERD (gastroesophageal reflux disease) K21.9 and Exocrine pancreatic insufficiency K86.81 [facility] [address] [place] [phone] 03/17/2024 Rc Kathleen Jr [facility] [address] [place] [phone] 01/06/2025 Rc Cottrellelio Adorno Assessments Encounter Date Diagnosis (ICD Code) Assessment [...] Date MEDICARE OF [place] [address] [facility] [place] [address] [phone] [id number] PRECHTL, RANJAN Self - patient is the insured [facility] [address] [place], [place] [phone] [id number] PRECHTL, RANJAN Self - patient is the insured [employer] [address] [place] [id number] PRECHTL, RANJAN Self - patient is the [...]
--- OUTSIDE RECORDS SUMMARY | 2025-03-15 16:29 | XMS_ITS | Encounter Summary ---
Author Organization [facility] [place], Address [address] [place] [address] Phone Care Team Providers Care Motor Racer Name Role Phone Mitul Garcia PAPER PRODUCTS SUPERVISOR Primary Care Provider [phone] Encounter Details Date Type Department Care Team ([facility] Contact Info) Description 08/05/2024 Orders Only [facility] [address] [place] [address] Sarbjit Palumbo MD [address] [place] [address] [place] [place] [address] Gitelman syndrome Social History Tobacco [...] Encounters Date Type Department Care Team ([facility] Contact Info) Description 04/04/2025 2:10 PM EDT Office Visit [facility] [address] [place] [address] Sarbjit Palumbo MD [address] [place] [address] [place] [address] documented as of this encounter Visit Diagnoses Diagnosis Gitelman syndrome documented in this encounter Care Teams Motor Racer Relationship Specialty Start Date End Date Mitul Garcia NP [address] [place] [address] PCP - General 05/24/19 documented as of this encounter
--- OUTSIDE RECORDS SUMMARY | 2025-03-15 16:29 | XMS_ITS | Clinical Summary ---
Author Organization [facility], Address [address] [place] [address] [place] [address] Phone Care Team Providers Care Wash Driller Name Role Phone Lynn Garcia NP Primary Care Provider Allergies Active Allergy Reactions Criticality Noted Date Comments Adhesive Tape 10/27/2019 Sulfamethoxazole-Trimethoprim 2019 Latex 10/27/2019 Phenytoin 10/27/2019 Medications TRULICITY 0.75 MG/0.5ML solution pen-injector INJECT 1 PEN EVERY WEEK 6 mL 1 10/18/2019 Active Dulaglutide 0.75 MG/0.5ML solution pen-injector Inject [...] by mouth every 6 (six) hours Active Mirabegron ER (Myrbetriq) 25 MG tablet sustained-relea se 24 hour Take 25 mg by mouth 2 (two) times a day 180 tablet 3 09/05/2020 Active DULoxetine (CYMBALTA) [address] capsule TAKE 1 CAPSULE(20 MG) BY MOUTH EVERY DAY. DO NOT CRUSH OR CHEW 30 capsule 5 04/01/2022 Active Myrbetriq 50 MG tablet sustained-relea se 24 hour TAKE 1 TABLET BY MOUTH EVERY DAY 30 MINUTES AFTER THE SAME MEAL FOR 90 DOSES 90 tablet 3 04/06/2023 Active traMADol (ULTRAM) 50 MG tablet Take 1.5 tablets (75 mg total) by mouth every 6 (six) hours 180 tablet 3 09/18/2023 Active Creon 69854-04864 units capsule 2 capsules with meals and 1 capsule with snacks Orally for 30 days 03/17/2024 Active furosemide (LASIX) 80 MG tablet Take 1 tablet (80 mg total) by mouth in the morning and 1 tablet (80 mg total) in the evening. 60 tablet 11 01/17/2025 01/18/20 26 Active Hospital, Clinic, or Other Facility Administered [...] Encounters Date Type Department Care Team Description 01/17/2025 3:00 PM EDT Office Visit [facility], [address] [place] [address] Sarbjit Palumbo MD Stage 3b chronic kidney disease (HCC) (Primary Dx) from Last 3 Months Immunizations Immunization Administration Dates Next Due Influenza Split High [...] Care Team (Late st Contact Info) Description 04/04/2025 2:10 PM EDT Office Visit [facility], [address] [place] [address] Sarbjit Palumbo MD [address] [place] [phone] Health Maintenance Due Date Last Done Comments Diabetes: Ophthalmology Exam 10/10/2019 Diabetes: Pedal Pulse Checked 10/10/2019 Diabetes: Sensory Foot Exam 10/10/2019 Diabetes: Visual Foot Exam 10/10/2019 Diabetes: Hemoglobin A1C 08/12/2023 023, 12/23/2022, 06/17/2022, Additional history exists Influenza Vaccine (#1) 2025 2, 05/11/2020, 04/23/2019, Additional history exists Pneumococcal Vaccine: 50+ Years Completed 05/19/2020, 07/04/2018, 05/19/2016, Additional history exists Pneumococcal Vaccine: Peds (0 to 5 Years) and At-Risk Patients (6 to 49 Years) Discontinued 05/19/2020, 07/04/2018, 05/19/2016, Additional history exists Hepatitis [...] PM EDT) Hemoglobin A1C 6.3(H) (4.0-5.6) % [facility] Comment: MONITORING: In known diabetic patients, hemoglobin A1c targets should be discussed with health care provider. DIAGNOSTIC USE: The [place] Diabetes Association (ADA) and the World Health [...] Supplement 1 Testing performed or reported by [facility], a Service of [facility], [address] [place] [address] Zach Engle MD, Applications Intern [facility]# [id number] Blood specimen (specimen) Venous blood / Unknown 05/12/2023 12:23 PM EDT 05/12/2023 12:26 PM EDT us Balaji Nascimento MD LAB BLOOD ORDERABLES Final Res ult [facility] from Last 3 Months or Most Recently Relevant to Health Maintenance Insurance Medicare [facility] Medicare [facility] Medicaid [place] Care Teams Wash Driller Relationship Specialty Start Date End Date Lynn Garcia NP [address] [place], [place] [phone] PCP - General 05/24/19
--- OUTSIDE RECORDS SUMMARY | 2025-03-15 16:29 | XMS_ITS | Encounter Summary ---
Author Organization [facility] Address [address] [place] [address] Phone Care Team Providers Care Automatic Winder Operator Name Role Phone Mitul Garcia COAL CRUSHER OPERATOR Primary Care Provider [phone] Reason for Visit * Reason Comments Med Refill Encounter Details Date Type Department Care Team (Late st Contact Info) Description 07/01/2022 Refill [facility] [address] [place] [phone] Balaji Nascimento MD Social History Tobacco Use [...] Upcoming Encounters Date Type Department Care Team ([facility] Contact Info) Description 04/04/2025 2:10 PM EDT Office [facility] [address] [place] [address] Sarbjit Palumbo MD [address] [place] [address] [place] [place] [address] documented as of this encounter Visit Diagnoses Not on filedocumented in this encounter Care Teams Automatic Winder Operator Relationship Specialty Start Date End Date Mitul Garcia NP [address] [place] [address] PCP - General 05/24/19 documented as of this encounter
--- OUTSIDE RECORDS SUMMARY | 2025-03-15 16:29 | XMS_ITS | Encounter Summary ---
Author Organization [facility] Address [address] [place] [address] Phone Care Team Providers Care System Sales Consultant Name Role Phone Mitul Garcia BOOSTER ASSEMBLER Primary Care Provider [phone] Reason for Visit * Reason Comments Med Refill Encounter Details Date Type Department Care Team (Late Contact Info) Description 06/24/2022 Refill [facility] [address] [place] [phone] Balaji Nascimento MD Social History Tobacco Use [...] Upcoming Encounters Date Type Department Care Team ([facility] Contact Info) Description 04/04/2025 2:10 PM EDT Office Visit [facility] [address] [place] [address] Sarbjit Palumbo MD [address] [place] [address] [address] [place] [place] [address] documented as of this encounter Visit Diagnoses Not on filedocumented in this encounter Care Teams System Sales Consultant Relationship Specialty Start Date End Date Mitul Garcia NP [address] [place] [address] PCP - General 05/24/19 documented as of this encounter
--- OUTSIDE RECORDS SUMMARY | 2025-03-15 16:30 | XMS_ITS | Encounter Summary ---
Author Organization [facility] Address [address] [place] [address] Phone Care Team Providers Care Internal Corrosion Specialist Name Role Phone Mitul Garcia ENGINEERING SCIENTIST Primary Care Provider [phone] Encounter Details Date Type Department Care Team ([facility] Contact Info) Description 07/29/2021 Documentation Only [facility] [address] [place] [address] Italia Rivers [address] [place] [phone] Social History Tobacco Use Types Packs/Day [...] Care Team ([facility] Contact Info) Description 04/04/2025 2:10 PM EDT Office Visit [facility] [address] [place] [address] Sarbjit Palumbo MD [address] [place] [address] [place] [place] [phone] documented as of this encounter Visit Diagnoses Not on filedocumented in this encounter Care Teams Internal Corrosion Specialist Relationship Specialty Start Date End Date Mitul Garcia NP [address] [place] [address] PCP - General 05/24/19 documented as of this encounter
--- OUTSIDE RECORDS SUMMARY | 2025-03-15 16:30 | XMS_ITS | Encounter Summary ---
Author Organization [facility] Address [address] [place] [phone] Care Team Providers Care Import Export Coordinator Name Role Phone Fawad Ortega MD Primary Care Provider Encounter Details Date Type Department Care Team (Latest Contact Info) Description 02/12/2025 Lab Requisition [facility] [address] [facility] [place] [address] Fawad Ortega MD [address] [place] [address] Type 2 diabetes mellitus without [...] on file documented as of this encounter Procedures Procedure Name Priority Date/Time Associated Diagnosis Comments COMPLETE BLOOD COUNT Routine 02/13/2025 8:31 AM EDT Type 2 diabetes mellitus without complications (CMS/HCC V24, CMS/HCC V28) Magnesium deficiency MAGNESIUM Routine 02/13/2025 8:31 AM EDT Type 2 diabetes mellitus without complications (CMS/HCC V24, CMS/HCC V28) Magnesium deficiency COMPREHENSIVE METABOLIC PANEL Routine 02/13/2025 8:31 AM EDT Type 2 diabetes mellitus without complications (CMS/HCC V24, CMS/HCC V28) Magnesium deficiency documented in this encounter Results * (ABNORMAL) Magnesium (02/13/2025 8:31 AM EDT) Pathologist [facility] Magnesium 1.7(L) 1.9 - 2.6 mg/dL LAB CHEMISTRY METHOD 02/13/2025 11:10 AM EDT [facility] Blood Venous blood specimen / Unknown Venipuncture / Unknown 02/13/2025 8:31 AM EDT 02/13/2025 10:15 AM EDT us Fawad Ortega MD LAB BLOOD ORDERABLES Final Resu lt [facility] [address] [place] [address], * (ABNORMAL) Complete blood count (02/13/2025 8:31 AM EDT) [facility] WBC 9.6 4.8 - 10.8 K/mcL LAB HEMETOLOGY METHOD 02/13/2025 10:[address] [facility] RBC 3.90 3.80 - 4.80 M/[facility] LAB HEMETOLOGY METHOD 02/13/2025 10:45 AM T [facility] Hemoglobin 10.8(L) 11.5 - 16.0 g/dL LAB HEMETOLOGY METHOD 02/13/2025 10:[address] [facility] Hematocrit 34.3(L) 35.0 - 47.0 % LAB HEMETOLOGY METHOD 02/13/2025 10:45 AM EDT [facility] MCV 88.9 79.0 - 98.0 FL LAB HEMETOLOGY METHOD 02/13/2025 10:45 AM T [facility] MCH 28.0 27.0 - 32.0 pcg LAB HEMETOLOGY METHOD 02/13/2025 10:[address] [facility] MCHC 31.5(L) 32.0 - 37.0 g/dL LAB HEMETOLOGY METHOD 02/13/2025 10:45 AM EDT [facility] RDW 13.5 11.0 - 15.0 % LAB HEMETOLOGY METHOD 02/13/2025 10:45 AM EDT [facility] Platelets 406(H) 130 - 400 K/mcL LAB HEMETOLOGY METHOD 02/13/2025 10:45 AM EDT [facility] MPV 10.7 7.0 - 11.0 FL LAB HEMETOLOGY METHOD 02/13/2025 10:45 AM EDT [facility] NRBC 0.0 <1.0 % LAB HEMETOLOGY METHOD 02/13/2025 10:45 AM EDT [facility] NRBC Absolute 0.00 <0.10 K/mcL LAB HEMETOLOGY METHOD 02/13/2025 10:45 AM EDT [facility] Blood Venous blood specimen / Unknown Venipuncture / Unknown 02/13/2025 8:31 AM EDT 02/13/2025 10:20 AM EDT us Fawad Ortega MD LAB BLOOD ORDERABLES Final Resu lt [facility] [address] [place] [address], * (ABNORMAL) Comprehensive metabolic panel (02/13/2025 8:31 AM EDT) Sodium 136 133 - 145 mmol/L LAB CHEMISTRY METHOD 02/13/2025 11:10 AM EDT [facility] Potassium 4.1 3.5 - 5.5 mmol/L LAB CHEMISTRY METHOD 02/13/2025 11:10 AM EDT [facility] Chloride 102 96 - 110 mmol/L LAB CHEMISTRY METHOD 02/13/2025 11:10 AM EDT [facility] CO2 26 21 - 32 mmol/L LAB CHEMISTRY METHOD 02/13/2025 11:[address] [facility] Anion Gap 8 3 - 11 LAB CHEMISTRY METHOD 02/13/2025 11:[address] [facility] Glucose 128(H) 70 - 100 mg/dL LAB CHEMISTRY METHOD 02/13/2025 11:[address] [facility] BUN 23 5 - 25 mg/dL LAB CHEMISTRY METHOD 02/13/2025 11:[address] [facility] Creatinine 1.56(H) 0.50 - 1.10 mg/dL LAB CHEMISTRY METHOD 02/13/2025 11:[address] [facility] eGFR 33(L) >=60 mL/min/1. 73m2 LAB CHEMISTRY METHOD 02/13/2025 11:[address] [facility] Comment:Calculation based on the Chronic Kidney Disease Epidemiology Collaboration (CKD-EPI) equation refit without adjustment for race. BUN/Creatinine Ratio 14.7 LAB CHEMISTRY METHOD 02/13/2025 11:[address] [facility] Calcium 9.3 8.5 - 10.5 mg/dL LAB CHEMISTRY METHOD 02/13/2025 11:[address] [facility] AST (SGOT) 21 10 - 42 unit/L LAB CHEMISTRY METHOD 02/13/2025 11:[address] [facility] ALT (SGPT) 14 10 - 60 unit/L LAB CHEMISTRY METHOD 02/13/2025 11:[address] [facility] Alkaline Phosphatase 60 42 - 121 unit/L LAB CHEMISTRY METHOD 02/13/2025 11:[address] [facility] Total Protein 7.3 6.0 - 8.0 g/dL LAB CHEMISTRY METHOD 02/13/2025 11:[address] [facility] Albumin 3.4 3.2 - 5.0 g/dL LAB CHEMISTRY METHOD 02/13/2025 11:[address] [facility] Total Bilirubin 0.3 0.0 - 1.4 mg/dL LAB CHEMISTRY METHOD 02/13/2025 11:10 AM EDT [facility] Blood Venous blood specimen / Unknown Venipuncture / Unknown 02/13/2025 8:31 AM EDT 02/13/2025 10:15 AM EDT us Fawad Ortega MD LAB BLOOD ORDERABLES Final Resu lt [facility] [address] [place] [address], documented in this encounter Visit Diagnoses Diagnosis Type 2 diabetes mellitus without complications (CMS/HCC V24, CMS/HCC V28) Magnesium deficiency Disorders of magnesium metabolism documented in this encounter Care Teams Import Export Coordinator Relationship Specialty Start Date End Date Fawad Ortega MD [address] [place] [address] PCP - General Internal Medicine 01/30/25 documented as of this encounter
--- OUTSIDE RECORDS SUMMARY | 2025-03-15 16:30 | XMS_ITS | Clinical Summary ---
Author Organization [address] Address [address] [place] [address] Phone Care Team Providers Care Photostat Operator Name Role Phone Fawad Ortega MD Primary Care Provider Encounters Date Type Department Care Team Description 02/24/2025 Lab Requisition [facility] [address] [place] [phone] Fawad Ortega MD Type 2 diabetes mellitus without complications ([facility] V24, [facility] V28); Magnesium deficiency 02/17/2025 Lab Requisition [facility] [address] [place] [phone] Fawad Ortega MD Type 2 diabetes mellitus without complications ([facility] V24, [facility] V28); Magnesium deficiency 02/12/2025 Lab Requisition [facility] [address] [place] [phone] Fawad Ortega MD Type 2 diabetes mellitus without complications ([facility] V24, [facility] V28); Magnesium deficiency 02/04/2025 Lab Requisition [facility] [address] [place] [phone] Fawad Ortega MD Type 2 diabetes mellitus without complications ([facility] V24, [facility] V28); Magnesium deficiency 01/30/2025 Lab Requisition [facility] [address] [place] [phone] Fawad Ortega MD Type 2 diabetes mellitus with hyperosmolarity without nonketotic hyperglycemic-hyperosmol ar coma ([facility]) ([facility] V24, [facility] V28); Magnesium deficiency from Last 3 Months [...] - 1-dose 75+ series) 10/25/2019 COVID-19 Vaccine (2023-2 5 season) 2024 Depression Screening 07/20/2024 Cholesterol [...] hyperosmolarity without nonketotic hyperglycemic-hyperosm olar coma ([facility]) ([facility]/HCC V24, CMS/HCC V28) Magnesium deficiency COMPLETE BLOOD COUNT Routine 01/30/2025 5:57 AM EDT Type 2 diabetes mellitus with hyperosmolarity without nonketotic hyperglycemic-hyperosm olar coma ([facility]) (CMS/HCC V24, CMS/HCC V28) Magnesium deficiency from Last 3 Months Results * (ABNORMAL) Complete blood count (02/13/2025 8:31 AM EDT) Only the most recent of3 resultswithin the time period is included. WBC 9.6 4.8 - 10.8 K/mcL LAB HEMETOLOGY METHOD 02/13/2025 10:45 AM [facility] RBC 3.90 3.80 - 4.80 M/mcL LAB HEMETOLOGY METHOD 02/13/2025 10:45 AM [facility] Hemoglobin 10.8(L) 11.5 - 16.0 g/dL LAB HEMETOLOGY METHOD 02/13/2025 10:45 AM [facility] Hematocrit 34.3(L) 35.0 - 47.0 % LAB HEMETOLOGY METHOD 02/13/2025 10:45 AM [facility] MCV 88.9 79.0 - 98.0 FL LAB HEMETOLOGY METHOD 02/13/2025 10:45 AM [facility] MCH 28.0 27.0 - 32.0 pcg LAB HEMETOLOGY METHOD 02/13/2025 10:45 AM [facility] MCHC 31.5(L) 32.0 - 37.0 g/dL LAB HEMETOLOGY METHOD 02/13/2025 10:45 AM [facility] RDW 13.5 11.0 - 15.0 % LAB HEMETOLOGY METHOD 02/13/2025 10:45 AM EDT [facility] Platelets 406(H) 130 - 400 K/mcL LAB HEMETOLOGY METHOD 02/13/2025 10:45 AM EDT [facility] MPV 10.7 7.0 - 11.0 FL LAB HEMETOLOGY METHOD 02/13/2025 10:45 AM EDT [facility] NRBC 0.0 <1.0 % LAB HEMETOLOGY METHOD 02/13/2025 10:45 AM EDT [facility] NRBC Absolute 0.00 <0.10 K/mcL LAB HEMETOLOGY METHOD 02/13/2025 10:45 AM EDT [facility] Blood Venous blood specimen / Unknown Venipuncture / Unknown 02/13/2025 8:31 AM EDT 02/13/2025 10:20 AM EDT us Fawad Ortega MD LAB BLOOD ORDERABLES Final Resu lt Performing Organization Address [facility]/ZIP Co de Phone Number [facility] [address] [place] [address], [place] [phone] * (ABNORMAL) Magnesium (02/13/2025 8:31 AM EDT) Only the most recent of3 resultswithin the time period is included. Magnesium 1.7(L) 1.9 - 2.6 mg/dL LAB CHEMISTRY METHOD 02/13/2025 11:10 AM EDT [facility] Blood Venous blood specimen / Unknown Venipuncture / Unknown 02/13/2025 8:31 AM EDT 02/13/2025 10:15 AM EDT us Fawad Ortega MD LAB BLOOD ORDERABLES Final Resu lt Performing Organization Address City/[facility]/ZIP Co de Phone Number [facility] [address] [place] [address], [place] [phone] * (ABNORMAL) Comprehensive metabolic panel (02/13/2025 8:31 AM EDT) Only the most recent of3 resultswithin the time period is included. Sodium 136 133 - 145 mmol/L LAB CHEMISTRY METHOD 02/13/2025 11:10 AM [facility] Potassium 4.1 3.5 - 5.5 mmol/L LAB CHEMISTRY METHOD 02/13/2025 11:10 AM [facility] Chloride 102 96 - 110 mmol/L LAB CHEMISTRY METHOD 02/13/2025 11:10 AM [facility] CO2 26 21 - 32 mmol/L LAB CHEMISTRY METHOD 02/13/2025 11:10 AM [facility] Anion Gap 8 3 - 11 LAB CHEMISTRY METHOD 02/13/2025 11:10 AM [facility] Glucose 128(H) 70 - 100 mg/dL LAB CHEMISTRY METHOD 02/13/2025 11:10 AM [facility] BUN 23 5 - 25 mg/dL LAB CHEMISTRY METHOD 02/13/2025 11:10 AM [facility] Creatinine 1.56(H) 0.50 - 1.10 mg/dL LAB CHEMISTRY METHOD 02/13/2025 11:10 AM [facility] eGFR 33(L) >=60 mL/min/1. 73m2 LAB CHEMISTRY METHOD 02/13/2025 11:10 AM [facility] Comment:Calculation based on the Chronic Kidney Disease Epidemiology Collaboration (CKD-EPI) equation refit without adjustment for race. BUN/Creatinine Ratio 14.7 LAB CHEMISTRY METHOD 02/13/2025 11:10 AM [facility] Calcium 9.3 8.5 - 10.5 mg/dL LAB CHEMISTRY METHOD 02/13/2025 11:10 AM [facility] AST (SGOT) 21 10 - 42 unit/L LAB CHEMISTRY METHOD 02/13/2025 11:10 AM [facility] ALT (SGPT) 14 10 - 60 unit/L LAB CHEMISTRY METHOD 02/13/2025 11:10 AM [facility] Alkaline Phosphatase 60 42 - 121 unit/L LAB CHEMISTRY METHOD 02/13/2025 11:10 AM [facility] Total Protein 7.3 6.0 - 8.0 g/dL LAB CHEMISTRY METHOD 02/13/2025 11:10 AM [facility] Albumin 3.4 3.2 - 5.0 g/dL LAB CHEMISTRY METHOD 02/13/2025 11:10 AM [facility] Total Bilirubin 0.3 0.0 - 1.4 mg/dL LAB CHEMISTRY METHOD 02/13/2025 11:10 AM [facility] Blood Venous blood specimen / Unknown Venipuncture / Unknown 02/13/2025 8:31 AM EDT 02/13/2025 10:15 AM EDT us Fawad Ortega MD LAB BLOOD ORDERABLES Final Resu lt [facility] [address] [place] [address], from Last 3 Months Insurance [facility] MEDICARE MEDICAID - [place] [facility] Care Teams Photostat Operator Relationship Specialty Start Date End Date Fawad Ortega MD [address] [place] [address] PCP - General Internal Medicine 01/30/25
--- OUTSIDE RECORDS SUMMARY | 2025-03-15 16:30 | XMS_ITS | Encounter Summary ---
Author Organization [facility] Address [address] [place] [address] Phone Care Team Providers Care Emissions Repair Technician Name Role Phone Mitul Garcia FABRICS AND MATERIAL CUTTER Primary Care Provider [phone] Encounter Details Date Type Department Care Team ([facility] Contact Info) Description 12/25/2022 Documentation Only [facility] [address] [place] [address] Italia Rivers [address] [place] [phone] Social History Tobacco Use Types Packs/Day Years Used Date Smoking Tobacco: Former Cigarettes Q uit: 07/20/1963 Comments Unknown Sex and Gender Information Value Date Recorded Sex Assigned at Not on file Legal Sex Female 4:34 PM EST Gender Identity Not on file Sexual Orientation Not on file documented as of this encounter Plan of Treatment Upcoming Encounters Date Type Department Care Team ([facility] Contact Info) Description 04/04/2025 2:10 PM EDT Office Visit [facility] [address] [place] [address] Sarbjit Palumbo MD [address] [place] [address] [place] [place] [phone] documented as of this encounter Visit Diagnoses Not on filedocumented in this encounter Care Teams Emissions Repair Technician Relationship Specialty Start Date End Date Mitul Garcia NP [address] [place] [address] PCP - General 05/24/19 documented as of this encounter
--- OUTSIDE RECORDS SUMMARY | 2025-03-15 16:30 | XMS_ITS | Encounter Summary ---
Author Organization [facility] Address [address] [place] [address] Phone Care Team Providers Care Lead Software Development Engineer Name Role Phone Mitul Garcia SUPERVISOR CONTACT AND SERVICE CLERKS Primary Care Provider Encounter Details Date Type Department Care Team ([facility] Contact Info) Description 12/25/2022 Documentation Only [facility] [address] [place] [address] Italia Rivers [address] [place] [phone] Social History Tobacco Use Types Packs/Day [...] Team ([facility] Contact Info) Description 04/04/2025 2:10 PM EDT Office Visit [facility] [address] [place] [address] Sarbjit Palumbo MD [address] [place] [address] [place] [place] [phone] documented as of this encounter Visit Diagnoses Not on filedocumented in this encounter Care Teams Lead Software Development Engineer Relationship Specialty Start Date End Date Mitul Garcia NP [address] [place] [address] PCP - General 05/24/19 documented as of this encounter
--- OUTSIDE RECORDS SUMMARY | 2025-03-15 16:30 | XMS_ITS | Encounter Summary ---
Author Organization [facility] Address [address] [place] [address] Care Team Providers Care Video Production Intern Name Role Phone Fawad Ortega MD Primary Care Provider [phone] Encounter Details Date Type Department Care Team (Latest Contact Info) Description 01/30/2025 Lab Requisition [facility] - Main Lab [address] [facility] [place] [address] Fawad Ortega MD [address] [place] [address] Type 2 diabetes mellitus with hyperosmolarity without nonketotic hyperglycemic-hyperosmo lar coma (NKHHC) (CMS/HCC V24, CMS/HCC V28); Magnesium deficiency Social [...] Associated Diagnosis Comments COMPLETE BLOOD COUNT Routine 01/30/2025 5:57 AM EDT Type 2 diabetes mellitus with hyperosmolarity without nonketotic hyperglycemic-hyperosm olar coma (NKHHC) (CMS/HCC V24, CMS/HCC V28) Magnesium deficiency MAGNESIUM Routine 01/30/2025 5:57 AM EDT Type 2 diabetes mellitus with hyperosmolarity without nonketotic hyperglycemic-hyperosm olar coma (NKHHC) (CMS/HCC V24, CMS/HCC V28) Magnesium deficiency COMPREHENSIVE METABOLIC PANEL Routine 01/30/2025 5:57 AM EDT Type 2 diabetes mellitus with hyperosmolarity without nonketotic hyperglycemic-hyperosm olar coma (NKHHC) ([facility] V24, [facility] V28) Magnesium deficiency documented in this encounter Results * (ABNORMAL) Magnesium (01/30/2025 5:57 AM EDT) Pathologist [facility] Magnesium 1.4(L) 1.9 - 2.6 mg/dL LAB CHEMISTRY METHOD 01/30/2025 5:00 PM EDT [facility] Blood Venous blood specimen / Unknown Venipuncture / Unknown 01/30/2025 5:57 AM EDT 01/30/2025 12:26 PM EDT us Fawad Ortega MD LAB BLOOD ORDERABLES Final Resu lt [facility] [address] [place] [address], * (ABNORMAL) Comprehensive metabolic panel (01/30/2025 5:57 AM EDT) [facility] Sodium 138 133 - 145 mmol/L LAB CHEMISTRY METHOD 01/30/2025 5:02 PM [facility] Potassium 4.2 3.5 - 5.5 mmol/L LAB CHEMISTRY METHOD 01/30/2025 5:02 PM [facility] Chloride 103 96 - 110 mmol/L LAB CHEMISTRY METHOD 01/30/2025 5:02 PM [facility] CO2 26 21 - 32 mmol/L LAB CHEMISTRY METHOD 01/30/2025 5:02 PM [facility] Anion Gap 9 3 - 11 LAB CHEMISTRY METHOD 01/30/2025 5:02 PM [facility] Glucose 86 70 - 100 mg/dL LAB CHEMISTRY METHOD 01/30/2025 5:02 PM [facility] BUN 30(H) 5 - 25 mg/dL LAB CHEMISTRY METHOD 01/30/2025 5:02 PM [facility] Creatinine 1.68(H) 0.50 - 1.10 mg/dL LAB CHEMISTRY METHOD 01/30/2025 5:02 PM [facility] eGFR 31(L) >=60 mL/min/1. 73m2 LAB CHEMISTRY METHOD 01/30/2025 5:02 PM [facility] Comment:Calculation based on the Chronic Kidney Disease Epidemiology Collaboration (CKD-EPI) equation refit without adjustment for race. BUN/Creatinine Ratio 17.9 LAB CHEMISTRY METHOD 01/30/2025 5:02 PM [facility] Calcium 8.9 8.5 - 10.5 mg/dL LAB CHEMISTRY METHOD 01/30/2025 5:02 PM [facility] AST (SGOT) 18 10 - 42 unit/L LAB CHEMISTRY METHOD 01/30/2025 5:02 PM [facility] ALT (SGPT) 15 10 - 60 unit/L LAB CHEMISTRY METHOD 01/30/2025 5:02 PM [facility] Alkaline Phosphatase 50 42 - 121 unit/L LAB CHEMISTRY METHOD 01/30/2025 5:02 PM [facility] Total Protein 6.3 6.0 - 8.0 g/dL LAB CHEMISTRY METHOD 01/30/2025 5:02 PM [facility] Albumin 3.0(L) 3.2 - 5.0 g/dL LAB CHEMISTRY METHOD 01/30/2025 5:02 PM [facility] Total Bilirubin 0.2 0.0 - 1.4 mg/dL LAB CHEMISTRY METHOD 01/30/2025 5:02 PM [facility] Blood Venous blood specimen / Unknown Venipuncture / Unknown 01/30/2025 5:57 AM EDT 01/30/2025 12:26 PM EDT us Fawad Ortega MD LAB BLOOD ORDERABLES Final Resu lt [facility] [address] [place] [address], * (ABNORMAL) Complete blood count (01/30/2025 5:57 AM EDT) WBC 9.1 4.8 - 10.8 K/mcL LAB HEMETOLOGY METHOD 01/30/2025 1:53 PM EDT [facility] RBC 3.20(L) 3.80 - 4.80 M/mcL LAB HEMETOLOGY METHOD 01/30/2025 1:53 PM EDT [facility] Hemoglobin 9.1(L) 11.5 - 16.0 g/dL LAB HEMETOLOGY METHOD 01/30/2025 1:53 PM EDT [facility] Hematocrit 28.7(L) 35.0 - 47.0 % LAB HEMETOLOGY METHOD 01/30/2025 1:53 PM EDT [facility] MCV 89.7 79.0 - 98.0 FL LAB HEMETOLOGY METHOD 01/30/2025 1:53 PM EDT [facility] MCH 28.4 27.0 - 32.0 pcg LAB HEMETOLOGY METHOD 01/30/2025 1:53 PM EDT [facility] MCHC 31.7(L) 32.0 - 37.0 g/dL LAB HEMETOLOGY METHOD 01/30/2025 1:53 PM EDT [facility] RDW 13.4 11.0 - 15.0 % LAB HEMETOLOGY METHOD 01/30/2025 1:53 PM EDT [facility] Platelets 376 130 - 400 K/mcL LAB HEMETOLOGY METHOD 01/30/2025 1:53 PM EDT [facility] MPV 10.8 7.0 - 11.0 FL LAB HEMETOLOGY METHOD 01/30/2025 1:53 PM EDT [facility] NRBC 0.0 <1.0 % LAB HEMETOLOGY METHOD 01/30/2025 1:53 PM EDT [facility] NRBC Absolute 0.00 <0.10 K/mcL LAB HEMETOLOGY METHOD 01/30/2025 1:53 PM EDT [facility] Blood Venous blood specimen / Unknown Venipuncture / Unknown 01/30/2025 5:57 AM EDT 01/30/2025 12:26 PM EDT us Fawad Ortega MD LAB BLOOD ORDERABLES Final Resu lt [facility] [address] [place] [address], documented in this encounter Visit Diagnoses Diagnosis Type 2 diabetes mellitus with hyperosmolarity without nonketotic hyperglycemic-hyperosmolar coma (NKHHC) (CMS/HCC V24, CMS/HCC V28) Magnesium deficiency Disorders of magnesium metabolism documented in this encounter Care Teams Video Production Intern Relationship Specialty Start Date End Date Fawad Ortega MD [address] [place] [address] PCP - General Internal Medicine 01/30/25 documented as of this encounter
--- OUTSIDE RECORDS SUMMARY | 2025-03-15 16:30 | XMS_ITS | Encounter Summary ---
Author Organization [facility] Address [address] [place] [phone] Care Team Providers Care Marketing Intern Name Role Phone Fawad Ortega MD Primary Care Provider [phone] Encounter Details Date Type Department Care Team (Latest Contact Info) Description 02/04/2025 Lab Requisition [facility] - Main Lab [address] [facility] [place] [address] Fawad Ortega MD [address] [place] [address] Type 2 diabetes mellitus without [...] Associated Diagnosis Comments COMPLETE BLOOD COUNT Routine 02/06/2025 5:27 AM [...] documented in this encounter Results * (ABNORMAL) Complete blood count (02/06/2025 5:27 AM EDT) [facility] WBC 8.2 4.8 - 10.8 K/mcL LAB HEMETOLOGY METHOD 02/06/2025 10:23 AM [facility] RBC 3.10(L) 3.80 - 4.80 M/mcL LAB HEMETOLOGY METHOD 02/06/2025 10:23 AM [facility] Hemoglobin 9.3(L) 11.5 - 16.0 g/dL LAB HEMETOLOGY METHOD 02/06/2025 10:23 AM [facility] Hematocrit 28.0(L) 35.0 - 47.0 % LAB HEMETOLOGY METHOD 02/06/2025 10:23 AM [facility] MCV 89.2 79.0 - 98.0 FL LAB HEMETOLOGY METHOD 02/06/2025 10:23 AM [facility] MCH 29.6 27.0 - 32.0 pcg LAB HEMETOLOGY METHOD 02/06/2025 10:23 AM [facility] MCHC 33.2 32.0 - 37.0 g/dL LAB HEMETOLOGY METHOD 02/06/2025 10:23 AM [facility] RDW 13.6 11.0 - 15.0 % LAB HEMETOLOGY METHOD 02/06/2025 10:23 AM [facility] Platelets 398 130 - 400 K/mcL LAB HEMETOLOGY METHOD 02/06/2025 10:23 AM [facility] MPV 10.6 7.0 - 11.0 FL LAB HEMETOLOGY METHOD 02/06/2025 10:23 AM [facility] NRBC 0.0 <1.0 % LAB HEMETOLOGY METHOD 02/06/2025 10:23 AM [facility] NRBC Absolute 0.00 <0.10 K/mcL LAB HEMETOLOGY METHOD 02/06/2025 10:23 AM EDT [facility] Blood Venous blood specimen / Unknown Venipuncture / Unknown 02/06/2025 5:27 AM EDT 02/06/2025 9:53 AM EDT us Fawad Ortega MD LAB BLOOD ORDERABLES Final Resu lt Performing Organization Address [facility]/ZIP Co de Phone Number [facility] [address] [place] [address], [place] [phone] * Magnesium (02/06/2025 5:24 AM EDT) [facility] Magnesium 1.9 1.9 - 2.6 mg/dL LAB CHEMISTRY METHOD 02/06/2025 10:46 AM EDT [facility] Blood Venous blood specimen / Unknown Venipuncture / Unknown 02/06/2025 5:24 AM EDT 02/06/2025 10:03 AM EDT us Fawad Ortega MD LAB BLOOD ORDERABLES Final Resu lt Performing Organization Address [facility] Co de Phone Number [facility] [address] [place] [address], [place] [phone] * (ABNORMAL) Comprehensive metabolic panel (02/06/2025 5:24 AM EDT) [facility] Sodium 140 133 - 145 mmol/L LAB CHEMISTRY METHOD 02/06/2025 10:46 AM EDT [facility] Potassium 4.4 3.5 - 5.5 mmol/L LAB CHEMISTRY METHOD 02/06/2025 10:46 AM EDT [facility] Chloride 107 96 - 110 mmol/L LAB CHEMISTRY METHOD 02/06/2025 10:46 AM EDT [facility] CO2 25 21 - 32 mmol/L LAB CHEMISTRY METHOD 02/06/2025 10:46 AM EDT [facility] Anion Gap 8 3 - 11 LAB CHEMISTRY METHOD 02/06/2025 10:46 AM [facility] Glucose 90 70 - 100 mg/dL LAB CHEMISTRY METHOD 02/06/2025 10:46 AM [facility] BUN 18 5 - 25 mg/dL LAB CHEMISTRY METHOD 02/06/2025 10:46 AM [facility] Creatinine 1.44(H) 0.50 - 1.10 mg/dL LAB CHEMISTRY METHOD 02/06/2025 10:46 AM [facility] eGFR 37(L) >=60 mL/min/1. 73m2 LAB CHEMISTRY METHOD 02/06/2025 10:46 AM [facility] Comment:Calculation based on the Chronic Kidney Disease Epidemiology Collaboration (CKD-EPI) equation refit without adjustment for race. BUN/Creatinine Ratio 12.5 LAB CHEMISTRY METHOD 02/06/2025 10:46 AM [facility] Calcium 8.3(L) 8.5 - 10.5 mg/dL LAB CHEMISTRY METHOD 02/06/2025 10:46 AM [facility] AST (SGOT) 13 10 - 42 unit/L LAB CHEMISTRY METHOD 02/06/2025 10:46 AM [facility] ALT (SGPT) 11 10 - 60 unit/L LAB CHEMISTRY METHOD 02/06/2025 10:46 AM [facility] Alkaline Phosphatase 46 42 - 121 unit/L LAB CHEMISTRY METHOD 02/06/2025 10:46 AM [facility] Total Protein 6.2 6.0 - 8.0 g/dL LAB CHEMISTRY METHOD 02/06/2025 10:46 AM [facility] Albumin 3.0(L) 3.2 - 5.0 g/dL LAB CHEMISTRY METHOD 02/06/2025 10:46 AM [facility] Total Bilirubin 0.2 0.0 - 1.4 mg/dL LAB CHEMISTRY METHOD 02/06/2025 10:46 AM EDT [facility] Blood Venous blood specimen / Unknown Venipuncture / Unknown 02/06/2025 5:24 AM EDT 02/06/2025 10:03 AM EDT Fawad Ortega MD LAB BLOOD ORDERABLES Final Resu lt [facility] [address] [place] [address], documented in this encounter Visit Diagnoses Diagnosis Type 2 diabetes mellitus without complications (CMS/HCC V24, CMS/HCC V28) Magnesium deficiency Disorders of magnesium metabolism documented in this encounter Care Teams Marketing Intern Relationship Specialty Start Date End Date Fawad Ortega MD [address] [place] [address] PCP - General Internal Medicine 01/30/25 documented as of this encounter
--- OUTSIDE RECORDS SUMMARY | 2025-03-15 16:30 | XMS_ITS | Encounter Summary ---
Author Organization [facility] Address [address] [place] [address] Phone Care Team Providers Care Bridge Maintainer Name Role Phone Mitul Garcia HOURLY SALES STAFF Primary Care Provider [phone] Encounter Details Date Type Department Care Team ([facility] Contact Info) Description 01/08/2023 Documentation Only [facility] [address] [place] [address] Italia Rivers [address] [place] [address] Social History Tobacco Use Types Packs/Day Years Used Date Smoking Tobacco: Former Cigarettes Q uit: 07/20/1963 Comments Unknown Sex and Gender Information Value Date Recorded Sex Assigned at Not on file Legal Sex Female 4:34 PM EST Gender Identity Not on file Sexual Orientation Not on file documented as of this encounter Plan of Treatment Upcoming Encounters Date Type Department Care Team ([facility] Contact Info) Description 04/04/2025 2:10 PM EDT Office Visit [facility] [address] [place] [address] Sarbjit Palumbo MD [address] [place] [address] [place] [place]ías [place] [phone] documented as of this encounter Visit Diagnoses Not on filedocumented in this encounter Care Teams Bridge Maintainer Relationship Specialty Start Date End Date Mitul Garcia NP [address] [place] [address] PCP - General 05/24/19 documented as of this encounter
--- OUTSIDE RECORDS SUMMARY | 2025-03-15 16:30 | XMS_ITS | Encounter Summary ---
Author Organization [facility] [place], Address [address] [place] [address] Phone Care Team Providers Care Church Communications Administrator Name Role Phone Mitul Garcia PACK WORKER Primary Care Provider [phone] Encounter Details Date Type Department Care Team ([facility] Contact Info) Description 05/13/2024 Orders Only [facility] [address] [place] [address] Sarbjit Palumbo MD [address] [place] [address] [place] [place] [address] Gitelman syndrome Social History Tobacco [...] Upcoming Encounters Date Type Department Care Team ([facility] Contact Info) Description 04/04/2025 2:10 PM EDT Office Visit [facility] [address] [place] [address] Sarbjit Palumbo MD [address] [place] [address] [place] [address] documented as of this encounter Visit Diagnoses Diagnosis Gitelman syndrome documented in this encounter Care Teams Church Communications Administrator Relationship Specialty Start Date End Date Mitul Garcia NP [address] [place] [address] PCP - General 05/24/19 documented as of this encounter
--- OUTSIDE RECORDS SUMMARY | 2025-03-15 16:30 | XMS_ITS | Encounter Summary ---
Author Organization [facility] [place], Address [address] [place] [address] Phone Care Team Providers Care Conference Assistant Name Role Phone Mitul Garcia ASSEMBLER DIELECTRIC HEATER Primary Care Provider [phone] Encounter Details Date Type Department Care Team ([facility] Contact Info) Description 11/27/2023 Orders Only [facility] [address] [place] [address] Sarbjit Palumbo MD [address] [place] [address] [place] [place] [address] Gitelman syndrome Social History Tobacco [...] Upcoming Encounters Date Type Department Care Team ([facility] Contact Info) Description 04/04/2025 2:10 PM EDT Office Visit [facility] [address] [address] Sarbjit Palumbo MD [address] [place] [address] [place] [address] documented as of this encounter Visit Diagnoses Diagnosis Gitelman syndrome documented in this encounter Care Teams Conference Assistant Relationship Specialty Start Date End Date Mitul Garcia NP [address] [place] [address] PCP - General 05/24/19 documented as of this encounter
--- OUTSIDE RECORDS SUMMARY | 2025-03-15 16:30 | XMS_ITS | Encounter Summary ---
Author Organization [facility] [place], Address [address] [place] [address] Phone Care Team Providers Care [place]e Name Role Phone Mitul Garcia NP Primary Care Provider [phone] Encounter Details Date Type Department Care Team (Late Contact Info) Description 09/16/2023 Documentation Only [facility] [address] [place] [address] [place], [place] [address] [place] [address] Social History Tobacco Use Types [...] Upcoming Encounters Date Type Department Care Team ([facility] Contact Info) Description 04/04/2025 2:10 PM EDT Office Visit [facility] [address] [place] [address] Sarbjit Palumbo MD [address] [facility] [address] [place] [place] [phone] documented as of this encounter Visit Diagnoses Not on filedocumented in this encounter Care Teams [place]okee Relationship Specialty Start Date End Date Mitul Garcia NP [address] [place] [address] PCP - General 05/24/19 documented as of this encounter
--- OUTSIDE RECORDS SUMMARY | 2025-03-15 16:30 | XMS_ITS | Patient Health Record ---
Author Organization [facility] morris KaplanCallahan Address [address] [facility] [place] [address] Care Team Providers Care Sleeve Machine Tender Name Role Phone Mitul Mccrary Primary Care Provider Rob bueno Quyen De Leon Unavailable [phone] Allergies Allergen (clinical drug ingredient) Drug/Non Drug [...] 100 MG TAKE 1 CAPSULE TWICE DAILY Oral; Duration: 30 Active Extra Depth Diabetic Shoes with [...] as nee ded Externally Three times a day; Duration: 30 days 06/13/2024 Active AFO-fixed . 1 . Wear daily; Duration: . 10/15/2021 Active Doxycycline Hyclate 100 MG 1 capsule Orally Twice a day; Duration: 10 day(s) 01/18/2019 Not-Taking Tradjenta Not-Taking Walking Boot/Pneumatic As directed Wear Daily; Duration: Until further notice 02/27/2020 Active Gabapentin 300 MG TK 1 C PO BID Oral; Duration: 90 Not-Taking AFO-fixed . 1 . Wear daily; Duration: . 05/11/2020 Active Ammonium Lactate 12 % ASHUTOSH QAM AND QPM TO DRY SKIN ON FEET AND LEGS External; Duration: 30 Not-Takin g Mupirocin 2 % 1 application Externally Once a day; Duration: 30 days Active Dicyclomine HCl 20 MG TK 1 T PO QID Oral ; Duration: 30 Not-Taking Extra Depth Orthopedic Shoes (1 [...] 1 T PO D FOR 4 DAYS Oral; Duration: 5 Not-Takin g Estrogel 0.75 MG/1.25 GM (0.06%) ASHUTOSH 1 PUMP AA UTD Transdermal; Duration: 69 Not-Taking Trulicity 1.5 MG/0.5ML as directed Subcutaneous Active Ibandronate Sodium 150 MG TK 1 T PO ONCE A MONTH Oral; Duration: 90 Not-Taking vitamin D Not-Taking Lyrica 50 MG Orally Active PARoxetine HCl 40 MG TK 1 T PO QD Oral; Duration: 30 Active Magnesium Active Calcitonin ([place]) 200 UNIT/ACT USE 1 SPRAY NASALLY QD. ALTERNATE NOSTRILS EACH DAY Nasal; Duration: 90 Not-Taki ng tiZANidine HCl Activ e Magnesium Oxide 400 MG 1 capsule as need ed Orally Once a day Not-Taking Metoprolol Succinate Active Diphenoxylate-Atropine 2.5-0.025 MG (Schedule V Drug) Oral; Duration: 30 Not-Taking oxyBUTYnin Chloride ER 15 MG TK 1 T PO BID Oral; Duration: 90 Active Amoxicillin 500 MG TK 4 CS PO 1 HOUR BEFORE DENTAL APPOINTMENT Oral; Duration: 3 Not-Taking Omeprazole 40 MG TK 1 C PO BID Oral; Duration: 30 Active Loperamide HCl 2 MG 1 tablet Orally 8 time(s) a day Not-Taking Spironolactone 50 MG TK 1 T PO BID Oral; Duration: 90 Active Vitamin D (Ergocalciferol) 02075 UNIT TK 1 C PO ONCE A WEEK Oral; Duration: 90 Not-Taking traMADol HCl 50 MG (Schedule IV Drug) T K 2 TS PO TID Oral; Duration: 30 Active Wbgzvqyroa-JKQI-Hzlfytqj 50-325-40 MG 1 capsule as needed Orally every 4 hrs Not-Taking Walking Boot/Pneumatic As directed Wear Daily; Duration: Until further notice 10/14/2016 Active Lotrimin AF 1 % 1 application to affected area Externally Twice a day Not-Takin g Colcrys 0.6 MG 1 tablet Orally Once a day; Duration: 10 days 08/30/2018 Not-Takin g Ibuprofen 800 MG 1 tablet with food o r milk as needed Orally Three times a day; Duration: 10 days 08/30/2018 Not-Taking Immunizations Vaccine Route [...] Problem Acquired hammer toe of right foot (8268853340152330 ) Other hammer toe(s) (acquired), right foot (M20.41) Active confirmed Problem Acquired hammer toe of left foot (9050868879495586 ) Other hammer toe(s) (acquired), left foot (M20.42) Active confirmed Problem Non-pressure chronic ulcer of other part of left foot limited to breakdown of skin (L97.521) Active confirmed Problem Chronic ulcer of foot (268214336) Non-pressure chronic ulcer of left heel and midfoot with fat layer exposed (L97.422) Active confirmed Problem Polyneuropathy due to type 2 diabetes mellitus (368529527) Type 2 diabetes mellitus with diabetic polyneuropathy (E11.42) Active confirmed Problem 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) Idiopathic gout, right ankle and foot (M10.071) Active confirmed Problem Foot ulcer due to type 2 diabetes mellitus (9630013204442) Type 2 diabetes mellitus with foot ulcer (E11.621) Active confirmed Problem Acquired hammer toe of left foot (5620864198090754 ) Hammertoe of left foot (M20.42) Active confirmed Problem Acquired hammer toe of right foot (8004220788728016 ) Hammertoe of right foot (M20.41) Active confirmed Problem Bilateral atherosclerosis of arteries of lower limbs (disorder) (1438659804212143 7) Atherosclerosis of artery of both lower extremities (I70.203) Active confirmed Problem 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) Active confirmed Problem Gouty arthritis of left foot (0357762516833258 ) Gouty arthritis of left foot (M10.9) Active confirmed Problem Arthritis of left ankle (2376007585768390 ) Arthritis of left ankle (M19.072) Active confirmed Problem Neuropathic ulce r of left heel, limited to breakdown of skin (L97.421) Active confirmed Response to treatment Vital Signs Blood pressure diastolic 75 mm Hg 06/13/2024 Height 5 ft 3 in in 06/13/2024 Blood pressure systolic 130 mm Hg 06/13/2024 Weight 198 lbs 06/13/2024 BMI 35.07 kg/m2 06/13/2024 Encounters Encounter Location Date Provider Diagnosis [address] [address] 05/25/2024 Quyen De Leon Non-pressure chronic ulcer of left heel and midfoot with fat layer exposed L97.422 ; Type 2 diabetes mellitus with foot ulcer E11.621 and Atherosclerosis of artery of both lower extremities I70.[address] [address] 06/13/2024 Quyen De Leon Non-pressure chronic ulcer of left heel and midfoot with fat layer exposed L97.422 ; Atherosclerosis of artery of both lower extremities I70.203 and Ingrown nail L60.[address] [address] 08/04/2024 Quyen De Leon Arthritis of left ankle M19.072 and Lower extremity edema R60.[address] [place] [address] 06/09/2024 Quyen Pintoaker [facility] [address] [address] 06/15/2024 Quyen De Leon [facility] [address] [address] 06/22/2024 Quyen De Leon Ingrown nail L60.[address] [facility] [address] 08/15/2024 Quyen De Leon [facility] [address] 11/28/2024 Quyen De Leon Assessments Encounter Date Diagnosis (ICD Code) Assessment [...] X ray : Foot, right 3V 08/30/2018 47267- Removal of Foreign Body, Subcut 0 11/25/2016 X ray : Ankle, right 3V 02/27/2020 Insurance Providers Payer Name Payer Address Payer Phone Subscriber Number Group Number Insured Name Patient Relationship to Insured Coverage Start Date Coverage End Date Medicare National [employer] [address] [place] [address] [id number] Wanda Blum Self - patient is the insured 1 [facility] [address] [place] [address] [id number] Mitul Blum Spouse - patient is the spouse of the insured [facility] [address] [place] [id number] Wanda Blum Self - patient is the insured Medical [...] Back sx 03/10/2016 Hospitalization History Reason Date(Month/Year) [facility] [place] 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
--- OUTSIDE RECORDS SUMMARY | 2025-03-15 16:30 | XMS_ITS | Encounter Summary ---
Author Organization [facility], Address [address] [place] [address] Phone Care Team Providers Care Government Professor Name Role Phone Mitul Garcia NP Primary Care Provider [phone] Encounter Details Date Type Department Care Team (Late Contact Info) Description 01/08/2024 Documentation Only [facility] [address] [place] [address] [place] [address] [place] [address] Social History Tobacco Use Types Packs/Day [...] Encounters Date Type Department Care Team ([facility] Contact Info) Description 04/04/2025 2:10 PM EDT Office Visit [facility] [address] [place] [address] Sarbjit Palumbo MD [address] [place] [phone] documented as of this encounter Visit Diagnoses Not on filedocumented in this encounter Care Teams Government Professor Relationship Specialty Start Date End Date Mitul Garcia NP [address] [place] [address] PCP - General 05/24/19 documented as of this encounter
--- OUTSIDE RECORDS SUMMARY | 2025-03-15 16:30 | XMS_ITS | Encounter Summary ---
Author Organization [facility] [place], Address [address] [place] [address] Phone Care Team Providers Care Voice Pathologist Name Role Phone Mitul Garcia STRAIGHT RULING MACHINE OPERATOR Primary Care Provider [phone] Encounter Details Date Type Department Care Team ([facility] Contact Info) Description 02/19/2024 Orders Only [facility] [address] [place] [address] Sarbjit Palumbo MD [address] [place] [address] [place] [place] [place] [address] Gitelman syndrome Social History Tobacco [...] Type Department Care Team ([facility] Contact Info) Description 04/04/2025 2:10 PM EDT Office Visit [facility] [address] [place] [address] Sarbjit Palumbo MD [address] [place] [address] [place] [place] [address] documented as of this encounter Visit Diagnoses Diagnosis Gitelman syndrome documented in this encounter Care Teams Voice Pathologist Relationship Specialty Start Date End Date Mitul Garcia NP [address] [place] [address] PCP - General 05/24/19 documented as of this encounter
--- OUTSIDE RECORDS SUMMARY | 2025-03-15 16:30 | XMS_ITS | Encounter Summary ---
Author Organization [facility] Address [address] [place] [address] Care Team Providers Care Water Service Dispatcher Name Role Phone Fawad Ortega MD Primary Care Provider [phone] Encounter Details Date Type Department Care Team (Latest Contact Info) Description 02/17/2025 Lab Requisition [facility] [address] [facility] [place] [address] aFwad Ortega MD [address] [place] [address] Type 2 diabetes mellitus without [...] metabolism documented in this encounter Care Teams Water Service Dispatcher Relationship Specialty Start Date End Date Fawad Ortega MD [address] [place] [address] PCP - General Internal Medicine 01/30/25 documented as of this encounter
--- OUTSIDE RECORDS SUMMARY | 2025-03-15 16:30 | XMS_ITS | Encounter Summary ---
Author Organization [facility] Address [address] [place] [address] Phone Care Team Providers Care Senior Software Qa Analyst Name Role Phone Mitul Garcia DINKEY DISPATCHER Primary Care Provider [phone] Encounter Details Date Type Department Care Team ([facility] Contact Info) Description 11/27/2022 Documentation Only [facility] [address] [place] [address] [place]alia Rivers [address] [place] [address] Social History Tobacco Use Types Packs/Day [...] Date Type Department Care Team ([facility] Contact Info) Description 04/04/2025 2:10 PM EDT Office Visit [facility] [address] [place] [address] Sarbjit Palumbo MD [address] [place] [address] [place] [place] [phone] documented as of this encounter Visit Diagnoses Not on filedocumented in this encounter Care Teams Senior Software Qa Analyst Relationship Specialty Start Date End Date Mitul Garcia NP [address] [place] [address] PCP - General 05/24/19 documented as of this encounter
== END 2025-03-15 16:28 | disposition home or self-care (01) ==
LOC: HO.HPS 15:14
PROVIDERS: PCP Nurse Practitioner Family; Visit Provider Internal Medicine
DX: G47.33 Obstructive sleep apnea (adult) (pediatric) (principal); Z99.89 Dependence on other enabling machines and devices; J98.4 Other disorders of lung; J44.9 Chronic obstructive pulmonary disease, unspecified; Z87.01 Personal history of pneumonia (recurrent)
CPT/HCPCS: 99214

== ENCOUNTER → 2025-03-15 15:14 | Outpatient (BNVA) | payer MEDICARE, BC, OTHER, MEDICAID, SELFPAY | PROVIDERS: PCP Nurse Practitioner Family; Visit Provider Internal Medicine | DX: J44.9 Chronic obstructive pulmonary disease, unspecified (principal); J98.4 Other disorders of lung; G47.33 Obstructive sleep apnea (adult) (pediatric); Z99.89 Dependence on other enabling machines and devices; Z87.01 Personal history of pneumonia (recurrent) | CPT/HCPCS: 99212 ==

== ENCOUNTER 2025-03-17 13:00 | Outpatient (AMB) | payer MEDICARE, BC, OTHER, MEDICAID, SELFPAY ==
--- OUTSIDE RECORDS SUMMARY | 2024-06-10 07:15 | XMS_ITS ---
Author Organization [facility] Address [address] [place] [address] Care Team Providers Care Systems Programmer Name Role Phone Mitul Mccrary Primary Care Provider Unav Quyen Hayden [phone] Encounters Encounter Location Date Provider Diagnosis [address] [address] 06/10/2024 Quyen De Leon Plan Of Treatment No Information Progress Notes * Wanda THOMPSON MDOB: (79 yo F)Acc No.[id number]:06/10/2024 Progress Notes Patient: Wanda SIM Provider: Tito De Leon DPM :1945 A ge:78 Y S ex:Female Date:06/10/2024 Address:[address] [place], [place] [address] Pcp:MARQUISE Morin Subjective: * Chief Complaints: * [...] Leon DPM Date: 08/10/2023 Generated for Wilfredo serrato/Fasilviag/eTransmitting on: 0 03/17/2025 01:23 PM EDT
--- OUTSIDE RECORDS SUMMARY | 2024-11-28 11:30 | XMS_ITS ---
Author Organization [facility] Address [address] [place] [address] Care Team Providers Care Server Systems Administrator Name Role Phone Mitul Mccrary Primary Care Provider Unav Quyen Hayden [phone] Encounters Encounter Location Date Provider Diagnosis [address] [address] 11/28/2024 Quyen De Leon Plan Of Treatment No Information Progress Notes * Wanda THOMPSON MDOB: (79 yo F)Acc No.[id number]:11/28/2024 Progress Note Patient: Ashwin JORGE LUIS Wanda Pacheco Provider: Tito De Leon DPM :1945 A ge:79 Y S ex:Female Date:11/28/2024 Address:[address] [place], [place] [address] Pcp:MARQUISE Morin Subjective: * Chief Complaints: * * Medical History: Objective: * Vitals: Assessment: Plan: * Treatment: * Images: * The named appointment provid er may or may not be the originator of this progress note, and it is not deemed complete until electronically signed by the appointment provider. Sign off status: Pending * Provider: Tito De Leon DPM Date: 11/28/2024 Generated for Danyi ng/Fasilviag/eTransmitting on: 03/17/2025 01:22 PM EDT
[2025-03-17 13:10] VITALS: BP 124/60; PULSE 75
--- NOTE | 2025-03-17 13:10 | A.OFFVIS_ITS ---
Vital Signs 03/17/25 13:10 Height 5 ft 1 in BP 124/60 Blood Pressure Location Lt brachial Position Sitting Pulse 75 Pulse Source Monitor Intake Visit Reasons: 1 yr follow up Accounts Receivable Assistant Required: No Allergies adhesive tape Allergy (Severe, Verified 03/17/25 13:12) Blister from adhesive bandages and rash from plastic tape phenytoin (From Dilantin) Allergy (Severe, Verified 03/17/25 13:12) Rash sulfamethoxazole (From BACTRIM) Allergy (Unknown, Verified 03/17/25 13:12) UNKNOWN trimethoprim (From BACTRIM) Allergy (Unknown, Verified 03/17/25 13:12) UNKNOWN Medication List - Last Reconciled 03/17/25 by ERICA Shay [afo right foot wear daily] albuterol sulfate 90 mcg/actuation 2 puffs inhalation Q6H PRN 30 days ammonium lactate 12% 1 appl topical BID ascorbic acid (vitamin C) 1 g PO DAILY 90 days blood sugar diagnostic As directed blood sugar diagnostic (Accu-Chek Guide test strips) three times a day blood-glucose meter (Accu-Chek Guide Glucose Meter) check blood sugar three times daily wkjzcnhasr-zbawbllbyseto-udhy 50-325-40 mg 1 tab PO ONCE PRN 30 days calcium citrate 500 mg (2 x 250 mg calcium) PO BID Held on 01/27/25. Instructions: Resume on 02/22/25. cholecalciferol (vitamin D3) 50 mcg PO DAILY [Diabetic shoes & 3 pair inserts as directed] diaper,brief,adult,disposable Uses 3 per day diaper,brief,adult,disposable (Briefs, Adult-Extra Large) Overnight pull up briefs (extra absorbant), size Large, uses 3 per day diclofenac sodium 1% (Voltaren Arthritis Pain) 4 grams topical QID PRN diphenoxylate-atropine 2.5-0.025 mg 1 tab PO QID [disposable bedpads Uses 2 daily] dulaglutide (Trulicity) 3 mg (0.5 mL) subcut QWEEK duloxetine 20 mg PO DAILY 90 days incontinence pad, liner, disp large, superabsorbant, uses 4 per day ipratropium-albuterol 0.5 mg-3 mg(2.5 mg base)/3 mL 3 mL inhalation Q6H PRN 30 days lancets (Unistik 2 Normal Lancet) Test blood sugar twice a day lancets (Safety Lancets) Test blood sugar twice a day-requires safety lancets vdfldh-nzitykji-kfzrcon 24,000-76,000 -120,000 unit (Creon) 2 caps PO TIDAC loperamide (Imodium A-D) 2 mg PO Q6H PRN 30 days magnesium L-lactate ER 336 mg PO BID mecobalamin (vitamin B12) 1,000 mcg sublingual DAILY methenamine hippurate 1 g PO DAILY 90 days Myrbetriq ER (mirabegron) 50 mg PO DAILY 30 days NS nystatin 1 appl topical BID 30 days omeprazole 40 mg PO BID paroxetine HCl 40 mg PO DAILY pravastatin 20 mg PO DAILY pregabalin 100 mg PO TID 30 days tramadol 50 mg PO BID PRN walker front with wheels only HPI HPI 1 yr follow up: Details: Wanda is a 79-year-old female past medical history hypertension, hyperlipidemia, diabetes, chronic kidney disease, obstructive sleep apnea with CPAP use, obesity, Gitelmans syndrome with chronically low magnesium, takotsubo cardiomyopathy 07/2022 followed by cardiac catheterization showing normal coronary arteries who now presents for follow-up. Today she reports she was admitted to the hospital in January and treated for pneumonia. She does not recall having any cardiac issues this past year. She feels she has recovered from her recent illness. She has an occasional intermittent cough. She does have shortness of breath with exertion which is not new. No PND, orthopnea or edema. She denies any chest discomfort at rest or with activity. No heart palpitations, lightheadedness, presyncope, syncope, falls. She uses a wheelchair when she is out of house. She ambulates only short distances using a walker. Taking all meds as directed. Spent most of the visit talking about her daughter who has stage IV cancer but is currently responding to treatment. [facility] Medical History Acute kidney injury Sepsis Weakness SOB (shortness of breath) Hyperhidrosis Cataract AVN (avascular necrosis of bone) Type 2 diabetes mellitus with diabetic polyneuropathy Hiatal hernia IBS (irritable bowel syndrome) GERD (gastroesophageal reflux disease) On beta jody at home Restrictive lung disease Obesity (BMI 30-39.9) GOPAL on CPAP Anemia B12 deficiency Vitamin D deficiency Breast pain, left Chronic kidney disease, stage 3 Decreased pedal pulses Diabetes mellitus with complication Retinopathy Celiac disease Right rotator cuff tear Osteoarthritis Seizures Gout Neuropathy Gitelman disease Essential hypertension Age-related osteoporosis without current pathological fracture Type 2 diabetes mellitus with other diabetic kidney complication Proteinuria Dyslipidemia Type 2 diabetes mellitus with chronic kidney disease Adult BMI 30.0-30.9 kg/sq m Surgical History History of esophagogastroduodenoscopy (EGD) S/P cardiac catheterization History of carpal tunnel surgery of right wrist History of back surgery Hx of colonoscopy History of total left knee replacement History of left shoulder replacement History of revision of total replacement of right hip joint Hx of fracture of fibula Family History Father No problems noted. Mother Cancer Diabetes Daughter Substance use disorder Mental health disorder Social History Household Members: Spouse and Children Household Members Other:: 2 daughter and their children Housing: House Are you a primary intensive care unit nurse to a significant other at home: No Do you presently have visiting nurse or other home services: No Alcohol intake: unknown Patient Tobacco Use Status: Never used Tobacco Tobacco use type: Cigarette Years Smoked: 1963 e-Cigarette/Vaping Use: Never Used Second Hand Smoke Exposure: Yes Advance Directives Date on File: 08/26/22 service: No Current occupational status: retired Cognitive needs: No Hearing needs: No Vision needs: Yes Review of Systems Const All systems reviewed & are unremarkable except as noted in HPI and below ENT Denies dizziness Card Denies chest pain, Denies chest pain at rest, Denies chest pain with activity, Denies rapid heart rate, Denies pedal edema, Denies edema, Denies leg edema, Denies lightheadedness, Denies palpitations, Denies dyspnea, Denies dyspnea on exertion and Denies orthopnea Resp Denies cough, Denies dyspnea and Denies dyspnea on exertion GI Denies hematochezia and Denies change in stool character Musc Reports abnormal gait (using wheelchair), Denies limited range of motion, Denies muscle cramps, Reports muscle weakness, Denies numbness, Denies radiating pain into limb, Denies stiffness and Denies tingling Neuro Reports abnormal gait (using wheelchair), Denies dizziness, Denies numbness and Denies tingling Endo Denies palpitations Physical Exam Vital Signs: Last Vital Signs Pulse 75 03/17/25 13:10 BP 124/60 03/17/25 13:10 Const Other: Obese, sitting in wheelchair General: cooperative, comfortable and no acute distress Orientation/consciousness: patient oriented x3 Neck Neck: Yes normal visual inspection Resp Effort & Inspection: normal respiratory effort Auscultation: clear to auscultation bilaterally, rales (Each base), no rhonchi and no wheezes Cardio Jugular venous distension: no JVD Rate: regular rate Rhythm: regular rhythm Heart sounds: S1 normal heart sound present, S2 normal heart sound present, no murmurs and no rubs Neuro General: patient oriented x3 Extrem General: Yes normal to inspection, No no pedal edema and No calf tenderness Psych Appearance: grossly normal Mental Status: mental status grossly normal Speech and movement: Normal speech and movement present Office Procedures EKG Details: Today, read by me, sinus rhythm with first-degree AV block, right bundle branch block, left anterior fascicular block, rate 75, QTC 464 millisecond [id number], Complete Assessment & Plan Assessment & Plan (1) Takotsubo cardiomyopathy: Code(s): I51.81 - Takotsubo syndrome Category: Medical Plan: Abnormal echocardiogram with akinetic apex 07/2022 in the setting of UTI, sepsis and pneumonia. She was initially thought to have had NSTEMI and was initially managed medically. A repeat echocardiogram 11/27/2022 showed EF 68% and no regional wall motion abnormalities. Cardiac catheterization 01/27/2023 showing completely normal coronary arteries. She was recently admitted with pneumonia again and echocardiogram remains normal. She had been on metoprolol in the past however she states that her PCP stopped it. She was having some low blood pressure readings. Currently asymptomatic and blood pressure controlled at 124/68. She refuses use of any type of diuretic, due to her chronic issues with low magnesium. Will avoid the use of Kemal/Arb for this reason. Will follow clinically and plan to reinitiate beta-jody if needed for any recurrent cardiomyopathy. (2) Cardiomyopathy: Comment: Takotsubo cardiomyopathy 07/2022 Code(s): I42.9 - Cardiomyopathy, unspecified Category: Medical Qualifiers: Cardiomyopathy type: stress-induced Qualified Code(s): I51.81 - Takotsubo syndrome Plan: As above (3) SOB (shortness of breath): Comment: DYSPNEA ON EXERTION IS DUE TO COMBINATION OF, OBESITY, RESTRICTIVE LUNG DISEASE, ANEMIA (HB. 10 GM ) AND SOME DECONDITIONING IT IS HOLDING STABLE. Code(s): R06.02 - Shortness of breath Category: Medical Plan: As above. Multifactorial. Symptom is not changing. (4) Essential hypertension: Code(s): I10 - Essential (primary) hypertension Category: Medical Plan: Blood pressure goal less than 130/80. Well controlled at present time. No med changes made (5) S/P cardiac catheterization: Comment: 01/27/2023, normal coronary arteries Code(s): Z98.890 - Other specified postprocedural states Category: Surgical Plan: As above Plan During the visit, we discussed the patient's cardiovascular health and management of her chronic conditions, including COPD and stress cardiomyopathy. We reviewed her medications and I suggested the use Metoprolol to help prevent recurrent cardiomyopathy and she declines at present. We discuss the signs and symptoms of heart failure, stress cardiomyopathy. The patient was advised to stay physically active, avoid added salt, and elevate her legs to prevent fluid buildup. Patient Instructions: - Stay physically active and avoid added salt to prevent fluid buildup. - Elevate legs when sitting for extended periods. - Continue using nebulizer as prescribed for COPD management. - Monitor for any new symptoms such as chest pain, difficulty breathing, leg swelling and report them promptly. - Follow up with cardiology in one year or sooner if symptoms change. Patient was informed and verbally consented to the use of an ambient scribe for clinic note documentation during this visit. Visit time spent on chart review, interview, assessment, orders, documentation. Coding Level of Care Code Est Pt Level 4 (58433) Complex EM visit Add On G2211 Diagnoses Takotsubo cardiomyopathy I51.81 Stress-induced cardiomyopathy I51.81 Cardiomyopathy type: stress-induced SOB (shortness of breath) R06.02 Essential hypertension I10 S/P cardiac catheterization Z98.890 CPT Codes EKG - CPT: 02543-Ioppbgmgmgptllbts, Complete ([id number]) Time Spent (min) 32
--- OUTSIDE RECORDS SUMMARY | 2025-03-17 13:22 | XMS_ITS | Encounter Summary ---
Author Organization [facility] Address [address] [place] [address] Phone Care Team Providers Care Ore Fielder Name Role Phone Mitul Garcia MILL OPERATOR HEAD Primary Care Provider [phone] Reason for Visit * Reason Comments Med Refill Encounter Details Date Type Department Care Team (Late st Contact Info) Description 07/01/2022 Refill [facility] [address] [place] [phone] Balaji Nascimento MD Social History Tobacco Use [...] ([facility] Contact Info) Description 04/04/2025 2:10 PM EDT Office Visit [facility] [address] [place] [address] Sarbjit Palumbo MD [address] [place] [address] [place] [address] documented as of this encounter Visit Diagnoses Not on filedocumented in this encounter Care Teams Ore Fielder Relationship Specialty Start Date End Date Mitul Garcia NP [address] [place] [address] PCP - General 05/24/19 documented as of this encounter
--- OUTSIDE RECORDS SUMMARY | 2025-03-17 13:22 | XMS_ITS | Encounter Summary ---
Author Organization [facility] Address [address] [place] [address] Phone Care Team Providers Care Cultured Marble Products Maker Name Role Phone Mitul Garcia FORKLIFT WHEEL LOADER Primary Care Provider [phone] Encounter Details Date Type Department Care Team ([facility] Contact Info) Description 07/29/2021 Documentation Only [facility] [address] [place] [address] Italia Rivers [address] [place] [address] Social History Tobacco Use Types Packs/Day [...] Care Team ([facility] Contact Info) Description 04/04/2025 2:10 PM EDT Office Visit [facility] [address] [place] [address] Sarbjit Palumbo MD [address] [place] [address] [place] [place] [phone] documented as of this encounter Visit Diagnoses Not on filedocumented in this encounter Care Teams Cultured Marble Products Maker Relationship Specialty Start Date End Date Mitul Garcia NP [address] [place] [address] PCP - General 05/24/19 documented as of this encounter
--- OUTSIDE RECORDS SUMMARY | 2025-03-17 13:22 | XMS_ITS | Patient Health Record ---
Author Organization [facility] Kaplan[facility] Address [address] [place] [address] Care Team Providers Care Orthodontic Technician Name Role Phone Mitul Mccrary Primary Care Provider Rob bueno Quyen De Leon Unavailable [phone] Allergies Allergen (clinical drug ingredient) Drug/Non Drug [...] Oral; Duration: 30 Active Magnesium Active Calcitonin ([place]) 200 UNIT/ACT USE 1 SPRAY NASALLY QD. [...] Oral; Duration: 90 Active Vitamin D (Ergocalciferol) 14892 UNIT TK 1 C PO ONCE A WEEK Oral; Duration: 90 Not-Taking traMADol HCl 50 MG (Schedule IV Drug) T K 2 TS PO TID Oral; Duration: 30 Active Ecykdtoulp-HMPG-Enmloaol 50-325-40 MG 1 capsule as needed Orally [...] Problem Acquired hammer toe of right foot (5405459194135155 ) Other hammer toe(s) (acquired), right foot (M20.41) Active confirmed Problem Acquired hammer toe of left foot (3671152810510079 ) Other hammer toe(s) (acquired), left foot (M20.42) Active confirmed Problem Non-pressure chronic ulcer of other part of left foot limited to breakdown of skin (L97.521) Active confirmed Problem Chronic ulcer of foot (760537657) Non-pressure chronic ulcer of left heel and midfoot with fat layer exposed (L97.422) Active confirmed Problem Polyneuropathy due to type 2 diabetes mellitus (345812409) Type 2 diabetes mellitus with diabetic polyneuropathy (E11.42) Active confirmed Problem Primary gout (49357319) Idiopathic gout, right ankle and foot (M10.071) Active confirmed Problem Foot ulcer due to type 2 diabetes mellitus (2710050829413) Type 2 diabetes mellitus with foot ulcer (E11.621) Active confirmed Problem Acquired hammer toe of left foot (6020311876690335 ) Hammertoe of left foot (M20.42) Active confirmed Problem Acquired hammer toe of right foot (0494362156976094 ) Hammertoe of right foot (M20.41) Active confirmed Problem Bilateral atherosclerosis of arteries of lower limbs (disorder) (7681705523177788 7) Atherosclerosis of artery of both lower extremities (I70.203) Active confirmed Problem 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) Active confirmed Problem Gouty arthritis of left foot (5602535089358449 ) Gouty arthritis of left foot (M10.9) Active confirmed Problem Arthritis of left ankle (6803951054256155 ) Arthritis of left ankle (M19.072) Active confirmed Problem Neuropathic ulce r of left heel, limited to breakdown of skin (L97.421) Active confirmed Response to treatment Vital Signs Blood pressure diastolic 75 mm Hg 06/13/2024 Height 5 ft 3 in in 06/13/2024 Blood pressure systolic 130 mm Hg 06/13/2024 Weight 198 lbs 06/13/2024 BMI 35.07 kg/m2 06/13/2024 Encounters Encounter Location Date Provider Diagnosis [address] [address] 05/25/2024 Quyen De Leon Non-pressure chronic ulcer of left heel and midfoot with fat layer exposed L97.422 ; Type 2 diabetes mellitus with foot ulcer E11.621 and Atherosclerosis of artery of both lower extremities I70.[address] [address] 06/13/2024 Quyen De Leon Non-pressure chronic ulcer of left heel and midfoot with fat layer exposed L97.422 ; Atherosclerosis of artery of both lower extremities I70.203 and Ingrown nail L60.[address] [address] 08/04/2024 Quyen De Leon Arthritis of left ankle M19.072 and Lower extremity edema R60.[address] [place] [place] [address] 06/09/2024 Quyen Pintoaker [facility] [address] [address] 06/15/2024 Quyen De Leon [facility] [address] [address] 06/22/2024 Quyen De Leon Ingrown nail L60.[address] [facility] [address] 08/15/2024 Quyen De Leon [facility] [address] 11/28/2024 Quyen De Leon Assessments Encounter Date [...] X ray : Foot, right 3V 08/30/2018 59632- Removal of Foreign Body, Subcut 0 11/25/2016 X ray : Ankle, right 3V 02/27/2020 Insurance Providers Payer Name Payer Address Payer Phone Subscriber Number Group Number Insured Name Patient Relationship to Insured Coverage Start Date Coverage End Date Medicare National [employer] [address] [place] [address] [id number] Wanda Blum Self - patient is the insured [facility] [address] [place] [address] [id number] Mitul Blum Spouse - patient is the spouse of the insured [facility] [address] [place] [address] [id number] Wanda Blum Self - patient is the [...] Back sx 03/10/2016 Hospitalization History Reason Date(Month/Year) [facility] [place] Bladder infection medication 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
--- OUTSIDE RECORDS SUMMARY | 2025-03-17 13:22 | XMS_ITS | Encounter Summary ---
Author Organization [facility] Address [address] [place] [address] Phone Care Team Providers Care Kerfer Machine Operator Name Role Phone Mitul Garcia BLENDING LINE ATTENDANT Primary Care Provider [phone] Reason for Visit * Reason Comments Med Refill Encounter Details Date Type Department Care Team (Late Contact Info) Description 06/24/2022 Refill [facility] [address] [place] [phone] Balaji Nascimento MD Social History Tobacco Use [...] Upcoming Encounters Date Type Department Care Team ([facility] Contact Info) Description 04/04/2025 2:10 PM EDT Office Visit [facility] [address] [place] [address] Sarbjit Palumbo MD [address] [place] [address] Dr. [place]ías [place] [address] documented as of this encounter Visit Diagnoses Not on filedocumented in this encounter Care Teams Kerfer Machine Operator Relationship Specialty Start Date End Date Mitul Garcia NP [address] [place] [address] PCP - General 05/24/19 documented as of this encounter
--- OUTSIDE RECORDS SUMMARY | 2025-03-17 13:22 | XMS_ITS | Encounter Summary ---
Author Organization [facility] Address [address] [place] [address] Care Team Providers Care Inspector And Hand Packager Name Role Phone Fawad Ortega MD Primary Care Provider [phone] Encounter Details Date Type Department Care Team (Latest Contact Info) Description 02/24/2025 Lab Requisition [facility] [address] [facility] [place] [address] Fawad Ortega MD [address] [place] [address] Type 2 diabetes mellitus without [...] metabolism documented in this encounter Care Teams Inspector And Hand Packager Relationship Specialty Start Date End Date Fawad Ortega MD [address] [place] [address] PCP - General Internal Medicine 01/30/25 documented as of this encounter
--- OUTSIDE RECORDS SUMMARY | 2025-03-17 13:22 | XMS_ITS | Clinical Summary ---
Author Organization [address] Address [address] [place] [address] Phone Care Team Providers Care Chief Revenue Officer Name Role Phone Fawad Ortega MD Primary Care Provider Encounters Date Type Department Care Team Description 02/24/2025 Lab Requisition [facility] Lab [address] [place] [phone] Fawad Ortega MD Type 2 diabetes mellitus without complications ([facility] V24, [facility] V28); Magnesium deficiency 02/17/2025 Lab Requisition [facility] Lab [address] [place] [phone] Fawad Ortega MD Type 2 diabetes mellitus without complications ([facility] V24, [facility] V28); Magnesium deficiency 02/12/2025 Lab Requisition [facility] Lab [address] [place] [phone] Fawad Ortega MD Type 2 diabetes mellitus without complications ([facility] V24, [facility] V28); Magnesium deficiency 02/04/2025 Lab Requisition [facility] Lab [address] [place] [phone] Fawad Ortega MD Type 2 diabetes mellitus without complications ([facility] V24, [facility] V28); Magnesium deficiency 01/30/2025 Lab Requisition [facility] Lab [address] [place] [phone] Fawad Ortega MD Type 2 diabetes mellitus with hyperosmolarity without nonketotic hyperglycemic-hyperosmol ar coma ([facility]) ([facility] V24, [facility] V28); Magnesium deficiency from Last 3 Months [...] hyperosmolarity without nonketotic hyperglycemic-hyperosm olar coma ([facility]) ([facility]/HCC V24, CMS/HCC V28) Magnesium deficiency COMPLETE BLOOD [...] K/mcL LAB HEMETOLOGY METHOD 02/13/2025 10:45 AM [facility] RBC 3.90 3.80 - 4.80 M/mcL LAB HEMETOLOGY METHOD 02/13/2025 10:45 AM [facility] Hemoglobin 10.8(L) 11.5 - 16.0 g/dL LAB HEMETOLOGY METHOD 02/13/2025 10:45 AM [facility] Hematocrit 34.3(L) 35.0 - 47.0 % LAB HEMETOLOGY METHOD 02/13/2025 10:45 AM [facility] MCV 88.9 79.0 - 98.0 FL LAB HEMETOLOGY METHOD 02/13/2025 10:45 AM [facility] MCH 28.0 27.0 - 32.0 pcg LAB HEMETOLOGY METHOD 02/13/2025 10:45 AM [facility] MCHC 31.5(L) 32.0 - 37.0 g/dL LAB HEMETOLOGY METHOD 02/13/2025 10:45 AM [facility] RDW 13.5 11.0 - 15.0 % LAB HEMETOLOGY METHOD 02/13/2025 10:45 AM EDT [facility] Platelets 406(H) 130 - 400 K/mcL LAB HEMETOLOGY METHOD 02/13/2025 10:45 AM EDT [facility] MPV 10.7 7.0 - 11.0 FL LAB HEMETOLOGY METHOD 02/13/2025 10:45 AM EDT [facility] NRBC 0.0 <1.0 % LAB HEMETOLOGY METHOD 02/13/2025 10:45 AM EDT [facility] NRBC Absolute 0.00 <0.10 K/mcL LAB HEMETOLOGY METHOD 02/13/2025 10:45 AM EDT [facility] Blood Venous blood specimen / Unknown Venipuncture / Unknown 02/13/2025 8:31 AM EDT 02/13/2025 10:20 AM EDT us Fawad Ortega MD LAB BLOOD ORDERABLES Final Resu lt Performing Organization Address [facility]/ZIP Co de Phone Number [facility] [address] [place] [address], [place] [phone] * (ABNORMAL) Magnesium (02/13/2025 8:31 AM EDT) Only the most recent of3 resultswithin the time period is included. Magnesium 1.7(L) 1.9 - 2.6 mg/dL LAB CHEMISTRY METHOD 02/13/2025 11:10 AM EDT [facility] Blood Venous blood specimen / Unknown Venipuncture / Unknown 02/13/2025 8:31 AM EDT 02/13/2025 10:15 AM EDT us Fawad Ortega MD LAB BLOOD ORDERABLES Final Resu lt Performing Organization Address City/[facility]/ZIP Co de Phone Number [facility] [address] [place] [address], [place] [phone] * (ABNORMAL) Comprehensive metabolic panel (02/13/2025 8:31 AM EDT) Only the most recent of3 resultswithin the time period is included. Sodium 136 133 - 145 mmol/L LAB CHEMISTRY METHOD 02/13/2025 11:10 AM [facility] Potassium 4.1 3.5 - 5.5 mmol/L LAB CHEMISTRY METHOD 02/13/2025 11:10 AM [facility] Chloride 102 96 - 110 mmol/L LAB CHEMISTRY METHOD 02/13/2025 11:10 AM [facility] CO2 26 21 - 32 mmol/L LAB CHEMISTRY METHOD 02/13/2025 11:10 AM [facility] Anion Gap 8 3 - 11 LAB CHEMISTRY METHOD 02/13/2025 11:10 AM [facility] Glucose 128(H) 70 - 100 mg/dL LAB CHEMISTRY METHOD 02/13/2025 11:10 AM [facility] BUN 23 5 - 25 mg/dL LAB CHEMISTRY METHOD 02/13/2025 11:10 AM [facility] Creatinine 1.56(H) 0.50 - 1.10 mg/dL LAB CHEMISTRY METHOD 02/13/2025 11:10 AM [facility] eGFR 33(L) >=60 mL/min/1. 73m2 LAB CHEMISTRY METHOD 02/13/2025 11:10 AM [facility] Comment:Calculation based on the Chronic Kidney Disease Epidemiology Collaboration (CKD-EPI) equation refit without adjustment for race. BUN/Creatinine Ratio 14.7 LAB CHEMISTRY METHOD 02/13/2025 11:10 AM [facility] Calcium 9.3 8.5 - 10.5 mg/dL LAB CHEMISTRY METHOD 02/13/2025 11:10 AM [facility] AST (SGOT) 21 10 - 42 unit/L LAB CHEMISTRY METHOD 02/13/2025 11:10 AM [facility] ALT (SGPT) 14 10 - 60 unit/L LAB CHEMISTRY METHOD 02/13/2025 11:10 AM [facility] Alkaline Phosphatase 60 42 - 121 unit/L LAB CHEMISTRY METHOD 02/13/2025 11:10 AM [facility] Total Protein 7.3 6.0 - 8.0 g/dL LAB CHEMISTRY METHOD 02/13/2025 11:10 AM [facility] Albumin 3.4 3.2 - 5.0 g/dL LAB CHEMISTRY METHOD 02/13/2025 11:10 AM [facility] Total Bilirubin 0.3 0.0 - 1.4 mg/dL LAB CHEMISTRY METHOD 02/13/2025 11:10 AM [facility] Blood Venous blood specimen / Unknown Venipuncture / Unknown 02/13/2025 8:31 AM EDT 02/13/2025 10:15 AM EDT us Fawad Ortega MD LAB BLOOD ORDERABLES Final Resu lt [facility] [address] [place] [address], from Last 3 Months Insurance [facility] MEDICARE MEDICAID - [place] [facility] Care Teams Chief Revenue Officer Relationship Specialty Start Date End Date Fawad Ortega MD [address] [place] [address] PCP - General Internal Medicine 01/30/25
--- OUTSIDE RECORDS SUMMARY | 2025-03-17 13:23 | XMS_ITS | Encounter Summary ---
Author Organization [facility] [place], Address [address] [place] [address] Phone Care Team Providers Care Move Coordinator Name Role Phone Mitul Garcia MACHINE WIPER Primary Care Provider [phone] Encounter Details Date Type Department Care Team ([facility] Contact Info) Description 02/19/2024 Orders Only [facility] [address] [place] [address] Sarbjit Palumbo MD [address] [place] [address] [place] [place] [address] Gitelman syndrome Social History Tobacco [...] Upcoming Encounters Date Type Department Care Team ([facility] Contact Info) Description 04/04/2025 2:10 PM EDT Office Visit [facility] [address] [place] [address] Sarbjit Palumbo MD [address] [place] [address] [place] [address] documented as of this encounter Visit Diagnoses Diagnosis Gitelman syndrome documented in this encounter Care Teams Move Coordinator Relationship Specialty Start Date End Date Mitul Garcia NP [address] [place] [address] PCP - General 05/24/19 documented as of this encounter
--- OUTSIDE RECORDS SUMMARY | 2025-03-17 13:23 | XMS_ITS | Patient Health Record ---
Author Organization [facility] Address [address] [place] [address] Care Team Providers Care Outcomes Manager Name Role Phone LYNN GARCIA Primary Care Provider Rc Galindo Jr Allergies Allergen (clinical drug ingredient) Drug/Non Drug Allergy documented on EMR Reaction Allergy Type Onset Date Status phenytoin Dilantin Unknown Drug Allergy Active sulfamethoxazole / trimethoprim Bactrim Unknown Drug Allergy Active plastic tape (uncoded) Unknown Allergy Active Results Component Value Reference Range Notes FL upper GI w air Reviewed date:01/06/2025 03:54:32 PM Interpretation: Performing Lab: Notes/Report: [facility] [address] [place] [address] Fluoroscopy Report Signed Patient: Ranjan Thompson MR#: [id number] 57 : 1945 Acct:[id number] Age/Sex: 79 / F ADM Date: 01/06/25 Loc: [facility] Attending Dr: Rc Kathleen MD Ordering Physician: Rc Kathleen MD Date of Service: 01/06/25 Procedure(s): FL upper GI w air Accession Number(s): [id number] cc: Rc Kathleen MD; Lynn Garcia [facility] EXAMINATION: XR FLUOROSCOPY UPPER GI WITH [...] OV> 01/06/25 1002 DD/ TD/TT: 01/06/25 0843 Hydraulic Press Operator: SAVAGE Reason For Referral No Information Medications Medication SIG (Take, Route, Frequency, Duration) Notes Start Date End Date Status Wjklevkfdf-VSSQ-Hrqoxkjv Active Creon 98509-[address]60 UNIT 2 capsules with m eals and [...] Problem Status W/U Status Risk Notes Problem 87075019 Hypertension (I10) Active confirmed Problem 832561375 Abnormal celiac antibody panel (R89.4) Active confirmed Problem GERD (gastroesophageal reflux disease) (K21.9) Active confirmed Problem 80734354 Diarrhea, unspecified type (R19.7) Active confirmed Problem 33634247 Irritable bowel syndrome, unspecified type (K58.9) Active confirmed Problem 26523536 Exocrine pancreatic insufficiency (K86.81) Active confirmed Problem 88434873 Irritable bowel syndrome with both constipation and diarrhea (K58.2) Active confirmed Problem 78469157949113 Colon cancer screening declined (Z53.20) Active confirmed Problem 881965764 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 Vital Signs Temperature 97.1 degrees Fahrenheit 11/16/2024 Blood pressure diastolic 01 mm Hg 11/16/2024 Height 63 in 11/16/2024 Blood pressure systolic 001 mm Hg 11/16/2024 Weight 188 lbs 11/16/2024 BMI 33.3 kg/m2 11/16/2024 Encounters Encounter Location Date Provider Diagnosis [facility] [address] [place] [phone] 08/11/2024 Rc Kathleen Jr Gastroesophageal reflux disease K21.9 ; Exocrine pancreatic insufficiency K86.81 and Irritable bowel syndrome, unspecified type K58.9 [facility] [address] [place] [phone] 11/16/2024 Rc Kathleen Jr Hiatal hernia K44.9 ; GERD (gastroesophageal reflux disease) K21.9 and Exocrine pancreatic insufficiency K86.81 [facility] [address] [place] [phone] 03/17/2024 Rc Kathleen Jr [facility] [address] [place] [phone] 01/06/2025 Rc Kathleen Assessments Encounter Date Diagnosis (ICD Code) Assessment [...] Date MEDICARE OF [place] [address] [place] [address] [id number] PRECHTL, RANJAN Self - patient is the insured [facility] [address] [place], [place] [id number] PRECHTL, RANJAN Self - patient is the insured [email or web address] [address] [place] [address] [phone] [id number] PRECHTL, RANJAN Self - patient is the [...]
--- OUTSIDE RECORDS SUMMARY | 2025-03-17 13:23 | XMS_ITS | Encounter Summary ---
Author Organization [facility] [place], Address [address] [place] [address] Phone Care Team Providers Care Rehabilitation Case Coordinator Name Role Phone Mitul Garcia ANTIQUE JEWELRY REPAIRER Primary Care Provider [phone] Encounter Details Date Type Department Care Team ([facility] Contact Info) Description 08/05/2024 Orders Only [facility] [address] [place] [address] Sarbjit Palumbo MD [address] [place] [address] [place] [address] Gitelman syndrome Social History Tobacco [...] Upcoming Encounters Date Type Department Care Team ([facility] Contact Info) Description 04/04/2025 2:10 PM EDT Office Visit [facility] [address] [place] [address] Sarbjit Palumbo MD [address] [place] [address] [place] [address] documented as of this encounter Visit Diagnoses Diagnosis Gitelman syndrome documented in this encounter Care Teams Rehabilitation Case Coordinator Relationship Specialty Start Date End Date Mitul Garcia NP [address] [place] [address] PCP - General 05/24/19 documented as of this encounter
--- OUTSIDE RECORDS SUMMARY | 2025-03-17 13:23 | XMS_ITS | Encounter Summary ---
Author Organization [facility] Address [address] [place] [address] Phone Care Team Providers Care Supervisor Publications Name Role Phone Mitul Garcia DIRECTOR MISSION Primary Care Provider [phone] Reason for Visit * Reason Comments Med Refill Encounter Details Date Type Department Care Team (Late Contact Info) Description 10/20/2019 Refill [facility] [address] [place] [address] Balaji Nascimento MD Social History [...] Upcoming Encounters Date Type Department Care Team ([facility] Contact Info) Description 04/04/2025 2:10 PM EDT Office Visit [facility] [place], [address] [place] [address] Sarbjit Palumbo MD [address] [place] [address] [place]ías [place] [address] documented as of this encounter Visit Diagnoses Not on filedocumented in this encounter Care Teams Supervisor Publications Relationship Specialty Start Date End Date Mitul Garcia NP [address] [place] [address] PCP - General 05/24/19 documented as of this encounter
--- OUTSIDE RECORDS SUMMARY | 2025-03-17 13:23 | XMS_ITS | Encounter Summary ---
Author Organization [facility] Address [id number] [place] [address] Care Team Providers Care Deskidding Machine Operator Name Role Phone Fawad Ortega MD Primary Care Provider [phone] Encounter Details Date Type Department Care Team (Latest Contact Info) Description 02/04/2025 Lab Requisition [facility] - Main Lab [address] [facility] [employer] [place] [address] Fawad Ortega MD [address] [place] [address] Type 2 diabetes mellitus without [...] Complete blood count (02/06/2025 5:27 AM EDT) [facility] WBC 8.2 4.8 - 10.8 K/mcL LAB HEMETOLOGY METHOD 02/06/2025 10:23 AM [facility] RBC 3.10(L) 3.80 - 4.80 M/mcL LAB HEMETOLOGY METHOD 02/06/2025 10:23 AM [facility] Hemoglobin 9.3(L) 11.5 - 16.0 g/dL LAB HEMETOLOGY METHOD 02/06/2025 10:23 AM [facility] Hematocrit 28.0(L) 35.0 - 47.0 % LAB HEMETOLOGY METHOD 02/06/2025 10:23 AM [facility] MCV 89.2 79.0 - 98.0 FL LAB HEMETOLOGY METHOD 02/06/2025 10:23 AM [facility] MCH 29.6 27.0 - 32.0 pcg LAB HEMETOLOGY METHOD 02/06/2025 10:23 AM [facility] MCHC 33.2 32.0 - 37.0 g/dL LAB HEMETOLOGY METHOD 02/06/2025 10:23 AM [facility] RDW 13.6 11.0 - 15.0 % LAB HEMETOLOGY METHOD 02/06/2025 10:23 AM [facility] Platelets 398 130 - 400 K/mcL LAB HEMETOLOGY METHOD 02/06/2025 10:23 AM [facility] MPV 10.6 7.0 - 11.0 FL LAB HEMETOLOGY METHOD 02/06/2025 10:23 AM [facility] NRBC 0.0 <1.0 % LAB HEMETOLOGY METHOD 02/06/2025 10:23 AM [facility] NRBC Absolute 0.00 <0.10 K/mcL LAB HEMETOLOGY METHOD 02/06/2025 10:23 AM EDT [facility] Blood Venous blood specimen / Unknown Venipuncture / Unknown 02/06/2025 5:27 AM EDT 02/06/2025 9:53 AM EDT us Fawad Ortega MD LAB BLOOD ORDERABLES Final Resu lt Performing Organization Address [facility]/ZIP Co de Phone Number [facility] [address] [place] [address], [place] [phone] * Magnesium (02/06/2025 5:24 AM EDT) [facility] Magnesium 1.9 1.9 - 2.6 mg/dL LAB CHEMISTRY METHOD 02/06/2025 10:46 AM EDT [facility] Blood Venous blood specimen / Unknown Venipuncture / Unknown 02/06/2025 5:24 AM EDT 02/06/2025 10:03 AM EDT us Fawad Ortega MD LAB BLOOD ORDERABLES Final Resu lt Performing Organization Address [facility] Co de Phone Number [facility] [address] [place] [address], [place] [phone] * (ABNORMAL) Comprehensive metabolic panel (02/06/2025 5:24 AM EDT) [facility] Sodium 140 133 - 145 mmol/L LAB CHEMISTRY METHOD 02/06/2025 10:46 AM EDT [facility] Potassium 4.4 3.5 - 5.5 mmol/L LAB CHEMISTRY METHOD 02/06/2025 10:46 AM EDT [facility] Chloride 107 96 - 110 mmol/L LAB CHEMISTRY METHOD 02/06/2025 10:46 AM EDT [facility] CO2 25 21 - 32 mmol/L LAB CHEMISTRY METHOD 02/06/2025 10:46 AM EDT [facility] Anion Gap 8 3 - 11 LAB CHEMISTRY METHOD 02/06/2025 10:46 AM [facility] Glucose 90 70 - 100 mg/dL LAB CHEMISTRY METHOD 02/06/2025 10:46 AM [facility] BUN 18 5 - 25 mg/dL LAB CHEMISTRY METHOD 02/06/2025 10:46 AM [facility] Creatinine 1.44(H) 0.50 - 1.10 mg/dL LAB CHEMISTRY METHOD 02/06/2025 10:46 AM [facility] eGFR 37(L) >=60 mL/min/1. 73m2 LAB CHEMISTRY METHOD 02/06/2025 10:46 AM [facility] Comment:Calculation based on the Chronic Kidney Disease Epidemiology Collaboration (CKD-EPI) equation refit without adjustment for race. BUN/Creatinine Ratio 12.5 LAB CHEMISTRY METHOD 02/06/2025 10:46 AM [facility] Calcium 8.3(L) 8.5 - 10.5 mg/dL LAB CHEMISTRY METHOD 02/06/2025 10:46 AM [facility] AST (SGOT) 13 10 - 42 unit/L LAB CHEMISTRY METHOD 02/06/2025 10:46 AM [facility] ALT (SGPT) 11 10 - 60 unit/L LAB CHEMISTRY METHOD 02/06/2025 10:46 AM [facility] Alkaline Phosphatase 46 42 - 121 unit/L LAB CHEMISTRY METHOD 02/06/2025 10:46 AM [facility] Total Protein 6.2 6.0 - 8.0 g/dL LAB CHEMISTRY METHOD 02/06/2025 10:46 AM [facility] Albumin 3.0(L) 3.2 - 5.0 g/dL LAB CHEMISTRY METHOD 02/06/2025 10:46 AM [facility] Total Bilirubin 0.2 0.0 - 1.4 mg/dL LAB CHEMISTRY METHOD 02/06/2025 10:46 AM EDT [facility] Blood Venous blood specimen / Unknown Venipuncture / Unknown 02/06/2025 5:24 AM EDT 02/06/2025 10:03 AM EDT Fawad Ortega MD LAB BLOOD ORDERABLES Final Resu lt [facility] [address] [place] [address], documented in this encounter Visit Diagnoses Diagnosis Type 2 diabetes mellitus without complications (CMS/HCC V24, CMS/HCC V28) Magnesium deficiency Disorders of magnesium metabolism documented in this encounter Care Teams Deskidding Machine Operator Relationship Specialty Start Date End Date Fawad Ortega MD [address] [place] [address] PCP - General Internal Medicine 01/30/25 documented as of this encounter
--- OUTSIDE RECORDS SUMMARY | 2025-03-17 13:23 | XMS_ITS | Encounter Summary ---
Author Organization [facility] Address [address] [place] [address] Phone Care Team Providers Care Acute Specialist Name Role Phone Mitul Garcia DIRECTOR OF RETAIL OPERATIONS Primary Care Provider [phone] Encounter Details Date Type Department Care Team ([facility] Contact Info) Description 11/27/2022 Documentation Only [facility] [address] [place] [address] Italia Rivers [address] [place] [address] Social History Tobacco Use Types Packs/Day [...] Team ([facility] Contact Info) Description 04/04/2025 2:10 PM EDT Office Visit [facility] [address] [place] [address] Sarbjit Palumbo MD [address] [place] [address] [place] [place] [phone] documented as of this encounter Visit Diagnoses Not on filedocumented in this encounter Care Teams Acute Specialist Relationship Specialty Start Date End Date Mitul Garcia NP [address] [place] [address] PCP - General 05/24/19 documented as of this encounter
--- OUTSIDE RECORDS SUMMARY | 2025-03-17 13:23 | XMS_ITS | Encounter Summary ---
Author Organization [facility] Address [address] [place] [address] Care Team Providers Care Skin Diver Name Role Phone Fawad Ortega MD Primary Care Provider [phone] Encounter Details Date Type Department Care Team (Latest Contact Info) Description 01/30/[address] [facility] - Main Lab [address] [facility] [address] Fawad Ortega MD [address] [place] [address] Type 2 diabetes mellitus with [...] hyperosmolarity without nonketotic hyperglycemic-hyperosm olar coma (NKHHC) ([facility] V24, [facility] V28) Magnesium deficiency documented in this encounter Results * (ABNORMAL) Magnesium (01/30/2025 5:57 AM EDT) Pathologist [facility] Magnesium 1.4(L) 1.9 - 2.6 mg/dL LAB CHEMISTRY METHOD 01/30/2025 5:00 PM EDT [facility] Blood Venous blood specimen / Unknown Venipuncture / Unknown 01/30/2025 5:57 AM EDT 01/30/2025 12:26 PM EDT us Fawad Ortega MD LAB BLOOD ORDERABLES Final Resu lt [facility] [address] [place] [address], * (ABNORMAL) Comprehensive metabolic panel (01/30/2025 5:57 AM EDT) [facility] Sodium 138 133 - 145 mmol/L LAB CHEMISTRY METHOD 01/30/2025 5:02 PM [facility] Potassium 4.2 3.5 - 5.5 mmol/L LAB CHEMISTRY METHOD 01/30/2025 5:02 PM [facility] Chloride 103 96 - 110 mmol/L LAB CHEMISTRY METHOD 01/30/2025 5:02 PM [facility] CO2 26 21 - 32 mmol/L LAB CHEMISTRY METHOD 01/30/2025 5:02 PM [facility] Anion Gap 9 3 - 11 LAB CHEMISTRY METHOD 01/30/2025 5:02 PM [facility] Glucose 86 70 - 100 mg/dL LAB CHEMISTRY METHOD 01/30/2025 5:02 PM [facility] BUN 30(H) 5 - 25 mg/dL LAB CHEMISTRY METHOD 01/30/2025 5:02 PM [facility] Creatinine 1.68(H) 0.50 - 1.10 mg/dL LAB CHEMISTRY METHOD 01/30/2025 5:02 PM [facility] eGFR 31(L) >=60 mL/min/1. 73m2 LAB CHEMISTRY METHOD 01/30/2025 5:02 PM [facility] Comment:Calculation based on the Chronic Kidney Disease Epidemiology Collaboration (CKD-EPI) equation refit without adjustment for race. BUN/Creatinine Ratio 17.9 LAB CHEMISTRY METHOD 01/30/2025 5:02 PM [facility] Calcium 8.9 8.5 - 10.5 mg/dL LAB CHEMISTRY METHOD 01/30/2025 5:02 PM [facility] AST (SGOT) 18 10 - 42 unit/L LAB CHEMISTRY METHOD 01/30/2025 5:02 PM [facility] ALT (SGPT) 15 10 - 60 unit/L LAB CHEMISTRY METHOD 01/30/2025 5:02 PM [facility] Alkaline Phosphatase 50 42 - 121 unit/L LAB CHEMISTRY METHOD 01/30/2025 5:02 PM [facility] Total Protein 6.3 6.0 - 8.0 g/dL LAB CHEMISTRY METHOD 01/30/2025 5:02 PM [facility] Albumin 3.0(L) 3.2 - 5.0 g/dL LAB CHEMISTRY METHOD 01/30/2025 5:02 PM [facility] Total Bilirubin 0.2 0.0 - 1.4 mg/dL LAB CHEMISTRY METHOD 01/30/2025 5:02 PM [facility] Blood Venous blood specimen / Unknown Venipuncture / Unknown 01/30/2025 5:57 AM EDT 01/30/2025 12:26 PM EDT us Fawad Ortega MD LAB BLOOD ORDERABLES Final Resu lt [facility] [address] [place] [address], * (ABNORMAL) Complete blood count (01/30/2025 5:57 AM EDT) WBC 9.1 4.8 - 10.8 K/mcL LAB HEMETOLOGY METHOD 01/30/2025 1:53 PM EDT [facility] RBC 3.20(L) 3.80 - 4.80 M/mcL LAB HEMETOLOGY METHOD 01/30/2025 1:53 PM EDT [facility] Hemoglobin 9.1(L) 11.5 - 16.0 g/dL LAB HEMETOLOGY METHOD 01/30/2025 1:53 PM EDT [facility] Hematocrit 28.7(L) 35.0 - 47.0 % LAB HEMETOLOGY METHOD 01/30/2025 1:53 PM EDT [facility] MCV 89.7 79.0 - 98.0 FL LAB HEMETOLOGY METHOD 01/30/2025 1:53 PM EDT [facility] MCH 28.4 27.0 - 32.0 pcg LAB HEMETOLOGY METHOD 01/30/2025 1:53 PM EDT [facility] MCHC 31.7(L) 32.0 - 37.0 g/dL LAB HEMETOLOGY METHOD 01/30/2025 1:53 PM EDT [facility] RDW 13.4 11.0 - 15.0 % LAB HEMETOLOGY METHOD 01/30/2025 1:53 PM EDT [facility] Platelets 376 130 - 400 K/mcL LAB HEMETOLOGY METHOD 01/30/2025 1:53 PM EDT [facility] MPV 10.8 7.0 - 11.0 FL LAB HEMETOLOGY METHOD 01/30/2025 1:53 PM EDT [facility] NRBC 0.0 <1.0 % LAB HEMETOLOGY METHOD 01/30/2025 1:53 PM EDT [facility] NRBC Absolute 0.00 <0.10 K/mcL LAB HEMETOLOGY METHOD 01/30/2025 1:53 PM EDT [facility] Blood Venous blood specimen / Unknown Venipuncture / Unknown 01/30/2025 5:57 AM EDT 01/30/2025 12:26 PM EDT us Fawad Ortega MD LAB BLOOD ORDERABLES Final Resu lt [facility] [address] [place] [address], documented in this encounter Visit Diagnoses Diagnosis Type 2 diabetes mellitus with hyperosmolarity without nonketotic hyperglycemic-hyperosmolar coma (NKHHC) (CMS/HCC V24, CMS/HCC V28) Magnesium deficiency Disorders of magnesium metabolism documented in this encounter Care Teams Skin Diver Relationship Specialty Start Date End Date Fawad Ortega MD [address] [place] [address] PCP - General Internal Medicine 01/30/25 documented as of this encounter
--- OUTSIDE RECORDS SUMMARY | 2025-03-17 13:23 | XMS_ITS | Encounter Summary ---
Author Organization [facility] [place], Address [address] [place] [address] Phone Care Team Providers Care Automotive Service Advisor Name Role Phone Mitul Garcia ROUNDHOUSE WORKER Primary Care Provider [phone] Encounter Details Date Type Department Care Team ([facility] Contact Info) Description 11/27/2023 Orders Only [facility] [address] [place] [address] Sarbjit Palumbo MD [address] [place] [address] [place] [address] Gitelman syndrome Social History Tobacco [...] Encounters Date Type Department Care Team ([facility] Contact Info) Description 04/04/2025 2:10 PM EDT Office Visit [facility] [address] [place] [address] Sarbjit Palumbo MD [address] [place] [address] [place] [address] documented as of this encounter Visit Diagnoses Diagnosis Gitelman syndrome documented in this encounter Care Teams Automotive Service Advisor Relationship Specialty Start Date End Date Mitul Garcia NP [address] [place] [address] PCP - General 05/24/19 documented as of this encounter
--- OUTSIDE RECORDS SUMMARY | 2025-03-17 13:23 | XMS_ITS | Encounter Summary ---
Author Organization [facility] [place], Address [address] [place] [address] Phone Care Team Providers Care Unishear Operator Name Role Phone Mitul Garcia JOB PUTTER UP AND TICKET PREPARER Primary Care Provider [phone] Encounter Details Date Type Department Care Team ([facility] Contact Info) Description 05/13/2024 Orders Only [facility] [address] [place] [address] Sarbjit Palumbo MD [address] [place] [address] [place] [address] Gitelman syndrome Social History Tobacco [...] Visit [facility] [address] [place] [address] Sarbjit Paulmbo MD [address] [place] [address] [place] [address] documented as of this encounter Visit Diagnoses Diagnosis Gitelman syndrome documented in this encounter Care Teams Unishear Operator Relationship Specialty Start Date End Date Mitul Garcia NP [address] [place] [address] PCP - General 05/24/19 documented as of this encounter
--- OUTSIDE RECORDS SUMMARY | 2025-03-17 13:23 | XMS_ITS | Encounter Summary ---
Author Organization [facility] Address [address] [place] [address] Phone Care Team Providers Care Miller Distillery Name Role Phone Mitul Garcia DANCING MASTER Primary Care Provider [phone] Encounter Details Date Type Department Care Team ([facility] Contact Info) Description 12/25/2022 Documentation Only [facility] [address] [place] [address] Italia Rivers [address] [place] [address] Social History Tobacco Use Types Packs/Day Years Used Date Smoking Tobacco: Former Cigarettes Q uit: 07/20/1963 Comments Unknown Sex and Gender Information Value Date Recorded Sex Assigned at Not on file Legal Sex Female 4:34 PM EST Gender Identity Not on file Sexual Orientation Not on file documented as of this encounter Plan of Treatment Upcoming Encounters Date Type Department Care Team ([facility] Contact Info) Description 04/04/2025 2:10 PM EDT Office Visit [facility] [address] [place] [address] Sarbjit Palumbo MD [address] [place] [address] [place] [place]ías [place] [phone] documented as of this encounter Visit Diagnoses Not on filedocumented in this encounter Care Teams [employer]illery Relationship Specialty Start Date End Date Mitul Garcia NP [address] [place] [address] PCP - General 05/24/19 documented as of this encounter
--- OUTSIDE RECORDS SUMMARY | 2025-03-17 13:23 | XMS_ITS | Encounter Summary ---
Author Organization [facility] [place], Address [address] [place] [address] Phone Care Team Providers Care Density Control Puncher Name Role Phone Mitul Garcia NP Primary Care Provider [phone] Encounter Details Date Type Department Care Team (Late Contact Info) Description 01/08/2024 Documentation Only [facility] [address] [place] [address] [place] [address] [place] [address] Social History Tobacco Use Types Packs/Day [...] Visit [facility] [address] [place] [address] Sarbjit Palumbo MD [address] [facility] [address] [place] [place] [phone] documented as of this encounter Visit Diagnoses Not on filedocumented in this encounter Care Teams Density Control Puncher Relationship Specialty Start Date End Date Mitul Garcia NP [address] [place] [address] PCP - General 05/24/19 documented as of this encounter
--- OUTSIDE RECORDS SUMMARY | 2025-03-17 13:23 | XMS_ITS | Encounter Summary ---
Author Organization [facility] Address [address] [place] [address] Care Team Providers Care Parts Representative Name Role Phone Fawad Ortega MD Primary Care Provider [phone] Encounter Details Date Type Department Care Team (Latest Contact Info) Description 02/12/2025 Lab Requisition [facility] - Main Lab [address] [facility] [place] [address] Fawad Ortega MD [address] [place] [address] Type 2 diabetes mellitus without [...] (ABNORMAL) Magnesium (02/13/2025 8:31 AM EDT) Pathologist [facility] Magnesium 1.7(L) 1.9 - 2.6 mg/dL LAB CHEMISTRY METHOD 02/13/2025 11:10 AM EDT [facility] Blood Venous blood specimen / Unknown Venipuncture / Unknown 02/13/2025 8:31 AM EDT 02/13/2025 10:15 AM EDT us Fawad Ortega MD LAB BLOOD ORDERABLES Final Resu lt [facility] [address] [place] [address], * (ABNORMAL) Complete blood count (02/13/2025 8:31 AM EDT) [facility] WBC 9.6 4.8 - 10.8 K/mcL LAB HEMETOLOGY METHOD 02/13/2025 10:45 AM [facility] RBC 3.90 3.80 - 4.80 M/[facility] LAB HEMETOLOGY METHOD 02/13/2025 10:45 AM T [facility] Hemoglobin 10.8(L) 11.5 - 16.0 g/dL LAB HEMETOLOGY METHOD 02/13/2025 10:45 AM [facility] Hematocrit 34.3(L) 35.0 - 47.0 % LAB HEMETOLOGY METHOD 02/13/2025 10:45 AM EDT [facility] MCV 88.9 79.0 - 98.0 FL LAB HEMETOLOGY METHOD 02/13/2025 10:45 AM T [facility] MCH 28.0 27.0 - 32.0 pcg LAB HEMETOLOGY METHOD 02/13/2025 10:45 AM [facility] MCHC 31.5(L) 32.0 - 37.0 g/dL LAB HEMETOLOGY METHOD 02/13/2025 10:45 AM EDT [facility] RDW 13.5 11.0 - 15.0 % LAB HEMETOLOGY METHOD 02/13/2025 10:45 AM EDT [facility] Platelets 406(H) 130 - 400 K/mcL LAB HEMETOLOGY METHOD 02/13/2025 10:45 AM EDT [facility] MPV 10.7 7.0 - 11.0 FL LAB HEMETOLOGY METHOD 02/13/2025 10:45 AM EDT [facility] NRBC 0.0 <1.0 % LAB HEMETOLOGY METHOD 02/13/2025 10:45 AM EDT [facility] NRBC Absolute 0.00 <0.10 K/mcL LAB HEMETOLOGY METHOD 02/13/2025 10:45 AM EDT [facility] Blood Venous blood specimen / Unknown Venipuncture / Unknown 02/13/2025 8:31 AM EDT 02/13/2025 10:20 AM EDT us Fawad Ortega MD LAB BLOOD ORDERABLES Final Resu lt [facility] [address] [place] [address], * (ABNORMAL) Comprehensive metabolic panel (02/13/2025 8:31 AM EDT) Sodium 136 133 - 145 mmol/L LAB CHEMISTRY METHOD 02/13/2025 11:10 AM EDT [facility] Potassium 4.1 3.5 - 5.5 mmol/L LAB CHEMISTRY METHOD 02/13/2025 11:10 AM EDT [facility] Chloride 102 96 - 110 mmol/L LAB CHEMISTRY METHOD 02/13/2025 11:10 AM EDT [facility] CO2 26 21 - 32 mmol/L LAB CHEMISTRY METHOD 02/13/2025 11:10 AM [facility] Anion Gap 8 3 - 11 LAB CHEMISTRY METHOD 02/13/2025 11:10 AM [facility] Glucose 128(H) 70 - 100 mg/dL LAB CHEMISTRY METHOD 02/13/2025 11:10 AM [facility] BUN 23 5 - 25 mg/dL LAB CHEMISTRY METHOD 02/13/2025 11:10 AM [facility] Creatinine 1.56(H) 0.50 - 1.10 mg/dL LAB CHEMISTRY METHOD 02/13/2025 11:10 AM [facility] eGFR 33(L) >=60 mL/min/1. 73m2 LAB CHEMISTRY METHOD 02/13/2025 11:10 AM [facility] Comment:Calculation based on the Chronic Kidney Disease Epidemiology Collaboration (CKD-EPI) equation refit without adjustment for race. BUN/Creatinine Ratio 14.7 LAB CHEMISTRY METHOD 02/13/2025 11:10 AM [facility] Calcium 9.3 8.5 - 10.5 mg/dL LAB CHEMISTRY METHOD 02/13/2025 11:10 AM [facility] AST (SGOT) 21 10 - 42 unit/L LAB CHEMISTRY METHOD 02/13/2025 11:10 AM [facility] ALT (SGPT) 14 10 - 60 unit/L LAB CHEMISTRY METHOD 02/13/2025 11:10 AM [facility] Alkaline Phosphatase 60 42 - 121 unit/L LAB CHEMISTRY METHOD 02/13/2025 11:10 AM [facility] Total Protein 7.3 6.0 - 8.0 g/dL LAB CHEMISTRY METHOD 02/13/2025 11:10 AM [facility] Albumin 3.4 3.2 - 5.0 g/dL LAB CHEMISTRY METHOD 02/13/2025 11:10 AM [facility] Total Bilirubin 0.3 0.0 - 1.4 mg/dL LAB CHEMISTRY METHOD 02/13/2025 11:10 AM EDT [facility] Blood Venous blood specimen / Unknown Venipuncture / Unknown 02/13/2025 8:31 AM EDT 02/13/2025 10:15 AM EDT us Fawad Ortega MD LAB BLOOD ORDERABLES Final Resu lt [facility] [address] [place] [address], documented in this encounter Visit Diagnoses Diagnosis Type 2 diabetes mellitus without complications (CMS/HCC V24, CMS/HCC V28) Magnesium deficiency Disorders of magnesium metabolism documented in this encounter Care Teams Parts Representative Relationship Specialty Start Date End Date Fawad Ortega MD [address] [place] [address] PCP - General Internal Medicine 01/30/25 documented as of this encounter
--- OUTSIDE RECORDS SUMMARY | 2025-03-17 13:23 | XMS_ITS | Encounter Summary ---
Author Organization [facility] Address [address] [place] [address] Phone Care Team Providers Care Solar Sales Specialist Name Role Phone Mitul Garcia CITY SUPERVISOR Primary Care Provider [phone] Reason for Visit * Reason Comments Med Refill Encounter Details Date Type Department Care Team (Late Contact Info) Description 10/17/2019 Refill [facility] [address] [place] [address] Balaji Nascimento MD Social History Tobacco Use [...] Upcoming Encounters Date Type Department Care Team ([facility] Contact Info) Description 04/04/2025 2:10 PM EDT Office Visit [facility] [place], [address] [place] [address] Sarbjit Palumbo MD [address] [place] [address] [place] [place] [address] documented as of this encounter Visit Diagnoses Not on filedocumented in this encounter Care Teams Solar Sales Specialist Relationship Specialty Start Date End Date Mitul Garcia NP [address] [place] [address] PCP - General 05/24/19 documented as of this encounter
--- OUTSIDE RECORDS SUMMARY | 2025-03-17 13:23 | XMS_ITS | Clinical Summary ---
Author Organization [facility] [place], Address [address] [place] [address] [place] [address] Phone Care Team Providers Care Bean Roaster Name Role Phone Lynn Garcia NP Primary Care Provider [phone] Allergies Active Allergy Reactions Criticality Noted Date [...] hours 180 tablet 3 09/18/2023 Active Creon 10662-76608 units capsule 2 capsules with meals and [...] Visit [facility] [place], [address] [place] [address] Sarbjit Palumbo MD Stage 3b chronic kidney [...] Visit [facility] [place], [address] [place] [address] Sarbjit Palumbo MD [address] [address] [place] [place] [address] Health Maintenance Due Date Last Done Comments [...] PM EDT) Hemoglobin A1C 6.3(H) (4.0-5.6) % [facility] Comment: MONITORING: In known diabetic patients, hemoglobin A1c targets should be discussed with health care provider. DIAGNOSTIC USE: The [place] Diabetes Association (ADA) and the World Health [...] Supplement 1 Testing performed or reported by [facility], a Service of [facility], [address] [place] [address] Zach Engle MD, Security Solutions Architect [facility]# [id number] Blood specimen (specimen) Venous blood / Unknown 05/12/2023 12:23 PM EDT 05/12/2023 12:26 PM EDT us Balaji Nascimento MD LAB BLOOD ORDERABLES Final Res ult [facility] from Last 3 Months or Most Recently Relevant to Health Maintenance Insurance Medicare [facility] Medicare [facility] Medicaid [place] Care Teams Bean Roaster Relationship Specialty Start Date End Date Lynn Garcia NP [address] [place], [place] [phone] PCP - General 05/24/19
--- OUTSIDE RECORDS SUMMARY | 2025-03-17 13:23 | XMS_ITS | Encounter Summary ---
Author Organization [facility] Address [address] [place] [address] Phone Care Team Providers Care Carpenter Mate Name Role Phone Mitul Garcia FUNERAL HOME DIRECTOR Primary Care Provider [phone] Reason for Visit * Reason Comments Med Refill Encounter Details Date Type Department Care Team (Late Contact Info) Description 11/02/2019 Refill [facility] [address] [place] [phone] Balaji Nascimento MD Social History Tobacco Use [...] Visit [facility] [place], [address] [place] [address] Sarbjit Palumbo MD [address] [place] [address] [place] [place] [address] documented as of this encounter Visit Diagnoses Not on filedocumented in this encounter Care Teams Carpenter Mate Relationship Specialty Start Date End Date Mitul Garcia NP [address] [place] [address] PCP - General 05/24/19 documented as of this encounter
--- OUTSIDE RECORDS SUMMARY | 2025-03-17 13:23 | XMS_ITS | Encounter Summary ---
Author Organization [facility] Address [address] [place] [address] Phone Care Team Providers Care Sports Trainer Name Role Phone Mitul Garcia YOUTH ADVOCATE Primary Care Provider [phone] Encounter Details Date Type Department Care Team ([facility] Contact Info) Description 12/25/2022 Documentation Only [facility] [address] [place] [address] Italia Rivers [address] [place] [address] Social History Tobacco Use Types Packs/Day [...] Type Department Care Team ([facility] Contact Info) Description 04/04/2025 2:10 PM EDT Office Visit [facility] [address] [place] [address] Sarbjit Palumbo MD [address] [place] [address] [place] [place] [address] documented as of this encounter Visit Diagnoses Not on filedocumented in this encounter Care Teams Sports Trainer Relationship Specialty Start Date End Date Mitul Garcia NP [address] [place] [address] PCP - General 05/24/19 documented as of this encounter
--- OUTSIDE RECORDS SUMMARY | 2025-03-17 13:23 | XMS_ITS | Encounter Summary ---
Author Organization [facility] Address [address] [place] [address] Phone Care Team Providers Care Peanut Sheller Name Role Phone Mitul Garcia TELEGRAPH REPEATER INSTALLER Primary Care Provider [phone] Encounter Details Date Type Department Care Team ([facility] Contact Info) Description 01/08/2023 Documentation Only [facility] [address] [place] [address] Italia Rivers [address] [place] [phone] Social History Tobacco Use Types Packs/Day [...] [facility] [address] [place] [address] Sarbjit Palumbo MD [address] [place] [address] [place] [place] [address] documented as of this encounter Visit Diagnoses Not on filedocumented in this encounter Care Teams Peanut Sheller Relationship Specialty Start Date End Date Mitul Garcia NP [address] [place] [address] PCP - General 05/24/19 documented as of this encounter
--- OUTSIDE RECORDS SUMMARY | 2025-03-17 13:23 | XMS_ITS | Encounter Summary ---
Author Organization [facility] [place], Address [address] [place] [address] Phone Care Team Providers Care Sld Educational Aide Name Role Phone Mitul Garcia NP Primary Care Provider [phone] Encounter Details Date Type Department Care Team (Late Contact Info) Description 09/16/2023 Documentation Only [facility] [address] [place] [address] [place], [place] [address] [place] [address] Social History Tobacco Use Types [...] Upcoming Encounters Date Type Department Care Team ([facility] Contact Info) Description 04/04/2025 2:10 PM EDT Office Visit [facility] [address] [place] [address] Sarbjit Palumbo MD [address] [facility] [address] [place] [address] documented as of this encounter Visit Diagnoses Not on filedocumented in this encounter Care Teams Sld Educational Aide Relationship Specialty Start Date End Date Mitul Garcia NP [address] [place] [address] PCP - General 05/24/19 documented as of this encounter
--- OUTSIDE RECORDS SUMMARY | 2025-03-17 13:23 | XMS_ITS | Encounter Summary ---
Author Organization [facility] Address [address] [place] [address] Care Team Providers Care Yarn Weight And Strength Tester Name Role Phone Fawad Ortega MD Primary Care Provider [phone] Encounter Details Date Type Department Care Team (Latest Contact Info) Description 02/17/2025 Lab Requisition [facility] Lab [address] [facility] [place] [address] Fawad Ortega MD [address] [place] [address] Type 2 diabetes mellitus without [...] metabolism documented in this encounter Care Teams Yarn Weight And Strength Tester Relationship Specialty Start Date End Date Fawad Ortega MD [address] [place] [address] PCP - General Internal Medicine 01/30/25 documented as of this encounter
== END 2025-03-17 14:11 | disposition home or self-care (01) ==
LOC: HO.HCS 13:01
PROVIDERS: PCP Nurse Practitioner Family; Visit Provider Nurse Practitioner Family
DX: I51.81 Takotsubo syndrome (principal); R06.02 Shortness of breath; I10 Essential (primary) hypertension; Z98.890 Other specified postprocedural states
CPT/HCPCS: 93010; 99214; G2211

== ENCOUNTER → 2025-03-17 13:00 | Outpatient (BNVA) | payer MEDICARE, BC, OTHER, MEDICAID, SELFPAY | PROVIDERS: PCP Nurse Practitioner Family; Visit Provider Nurse Practitioner Family | DX: I51.81 Takotsubo syndrome (principal); R06.02 Shortness of breath; I10 Essential (primary) hypertension; I44.0 Atrioventricular block, first degree; I45.2 Bifascicular block; R94.31 Abnormal electrocardiogram [ECG] [EKG]; Z98.890 Other specified postprocedural states | CPT/HCPCS: 93005; 99212 ==

== ENCOUNTER 2025-03-23 12:50 | Outpatient (REF) | payer MEDICARE, BC, OTHER, MEDICAID, SELFPAY ==
--- OUTSIDE RECORDS SUMMARY | 2024-06-10 07:15 | XMS_ITS ---
Author Organization [facility] Address [address] [facility] [place] [address] Care Team Providers Care Nitroglycerin Distributor Name Role Phone Mitul Mccrary Primary Care Provider Unav Quyen Hayden [phone] Encounters Encounter Location Date Provider Diagnosis [address] [address] 06/10/2024 Quyen De Leon Plan Of Treatment No Information Progress Notes * Wanda THOMPSON MDOB: 5 (79 yo F)Acc No.[id number]:06/10/2024 Progress Notes Patient: Ashwin Wanda KANG Provider: Tito De Leon DPM :1945 A ge:78 Y S ex:Female Date:06/10/2024 Address:[address] [place], [place] [phone] Pcp:MARQUISE Morin Subjective: * Chief Complaints: * [...] Leon DPM Date: 08/10/2023 Generated for Wilfredo ng/Fasilviag/eTransmitting on: 0 03/23/2025 02:05 PM EDT
--- OUTSIDE RECORDS SUMMARY | 2024-11-28 11:30 | XMS_ITS ---
Author Organization [facility] Address [address] [place] [address] Care Team Providers Care Retort Or Condenser Press Operator Name Role Phone Mitul Mccrary Primary Care Provider Unav Quyen Hayden [phone] Encounters Encounter Location Date Provider Diagnosis [address] [address] 11/28/2024 Quyen De Leon Plan Of Treatment No Information Progress Notes * Wanda THOMPSON MDOB: (79 yo F)Acc No.[id number]:11/28/2024 Progress Note Patient: Ashwin CAROLYNDARWIN Wanda Pacheco Provider: Tito De Leon DPM :1945 A ge:79 Y S ex:Female Date:11/28/2024 Address:[address] [place], [place] [phone] Pcp:MARQUISE Morin Subjective: * Chief Complaints: * [...] Date: 11/28/2024 Generated for Danyi ng/Fasilviag/eTransmitting on: 0 03/23/2025 02:04 PM EDT
--- NOTE | ~2025-03-23 | MM_ITS ---
EXAMINATION: MM SCREENING DIGITAL BREAST TOMOSYNTHESIS, BILATERAL CLINICAL INFORMATION: Screening. Asymptomatic. COMPARISON: Mammography: Comparison is made with available priors TECHNIQUE: Digital breast mammography with tomosynthesis is performed in both the craniocaudal and mediolateral oblique views along with computer-aided detection (CAD). FINDINGS: There are scattered areas of fibroglandular density (ACR BI-RADS breast composition Category b). Bilateral benign secretory calcifications. There are no significant masses, abnormal calcifications, or other abnormalities. MM/MM tomosynthesis screening BI IMPRESSION: No mammographic evidence of malignancy. ASSESSMENT: BI-RADS BI-RADS 2 - Benign Findings RECOMMENDATION: Routine annual mammography screening. 1 year F/U This examination should not preclude the clinical evaluation of a suspicious palpable abnormality. This patient's information was entered into a reminder system with a target due date for their next mammogram. Electronically signed by: Barbie Guillen DO 03/27/2025 02:16 PM EDT
--- OUTSIDE RECORDS SUMMARY | 2025-03-23 14:05 | XMS_ITS | Encounter Summary ---
Author Organization [facility] Address [address] [place] [address] Phone Care Team Providers Care Professor Of Practice Name Role Phone Mitul Garcia CELL TENDER Primary Care Provider [phone] Reason for Visit * Reason Comments Med Refill Encounter Details Date Type Department Care Team (Late Contact Info) Description 10/17/2019 Refill [facility] [place] [address] [place] [phone] Balaji Nascimento MD Social History Tobacco Use [...] Upcoming Encounters Date Type Department Care Team ([facility] Contact Info) Description 04/04/2025 2:10 PM EDT Office Visit [facility] [place], [address] [place] [address] Sarbjit Palumbo MD [address] [place] [address] [place] [place]ías [place] [address] documented as of this encounter Visit Diagnoses Not on filedocumented in this encounter Care Teams Professor Of Practice Relationship Specialty Start Date End Date Mitul Garcia NP [address] [place] [address] PCP - General 05/24/19 documented as of this encounter
--- OUTSIDE RECORDS SUMMARY | 2025-03-23 14:05 | XMS_ITS | Clinical Summary ---
Author Organization [address] Address [address] [place] [address] Phone Care Team Providers Care Ramp Flight Attendant Name Role Phone Fawad Ortega MD Primary Care Provider Encounters Date Type Department Care Team Description 02/24/2025 Lab Requisition [facility] Lab [address] [place] [phone] Fawad Ortega MD Type 2 diabetes mellitus without complications ([facility] V24, [facility] V28); Magnesium deficiency 02/17/2025 Lab Requisition [facility] Lab [address] [place] [phone] Fawad Ortega MD Type 2 diabetes mellitus without complications ([facility] V24, [facility] V28); Magnesium deficiency 02/12/2025 Lab Requisition [facility] Lab [address] [place] [phone] Fawad Ortega MD Type 2 diabetes mellitus without complications ([facility] V24, [facility] V28); Magnesium deficiency 02/04/2025 Lab Requisition [facility] Lab [address] [place] [phone] Fawad Ortega MD Type 2 diabetes mellitus without complications ([facility] V24, [facility] V28); Magnesium deficiency 01/30/2025 Lab Requisition [facility] Lab [address] [place] [phone] Fawad Ortega MD Type 2 diabetes mellitus with hyperosmolarity without nonketotic hyperglycemic-hyperosmol ar coma ([facility]) ([facility] V24, [facility] V28); Magnesium deficiency from Last [...] Patients (1 - 1-dose 75+ series) 10/25/2019 Depression Screening 07/20/2024 Cholesterol Screening (Lipid Panel) 01/30/2025 Diabetes: Annual Urine Albumin-Creatinine Ratio (uACR) 01/30/2025 Diabetes: Blood Sugar Contro l Test (HGBA1C) 01/30/2025 05/12/2023 Falls Risk Assessment 01/30/2025 Medicare Annual Wellness Visit 01/30/2025 Osteoporosis Screening (Bone Density Screening) 01/30/2025 Social Influencers of Health Screening 01/30/2025 COVID-19 Vaccine ( - 2023-2 5 season) 2025 Influenza Vaccine (#1) 2025 9, 07/04/2018, 03/20/2017 [...] hyperosmolarity without nonketotic hyperglycemic-hyperosm olar coma (NKHHC) ([facility]/HCC V24, CMS/HCC V28) Magnesium deficiency COMPLETE BLOOD [...] K/mcL LAB HEMETOLOGY METHOD 02/13/2025 10:45 AM [facility] RBC 3.90 3.80 - 4.80 M/mcL LAB HEMETOLOGY METHOD 02/13/2025 10:45 AM [facility] Hemoglobin 10.8(L) 11.5 - 16.0 g/dL LAB HEMETOLOGY METHOD 02/13/2025 10:45 AM [facility] Hematocrit 34.3(L) 35.0 - 47.0 % LAB HEMETOLOGY METHOD 02/13/2025 10:45 AM [facility] MCV 88.9 79.0 - 98.0 FL LAB HEMETOLOGY METHOD 02/13/2025 10:45 AM [facility] MCH 28.0 27.0 - 32.0 pcg LAB HEMETOLOGY METHOD 02/13/2025 10:45 AM [facility] MCHC 31.5(L) 32.0 - 37.0 g/dL LAB HEMETOLOGY METHOD 02/13/2025 10:45 AM [facility] RDW 13.5 11.0 - 15.0 % LAB HEMETOLOGY METHOD 02/13/2025 10:45 AM EDT [facility] Platelets 406(H) 130 - 400 K/mcL LAB HEMETOLOGY METHOD 02/13/2025 10:45 AM EDT [facility] MPV 10.7 7.0 - 11.0 FL LAB HEMETOLOGY METHOD 02/13/2025 10:45 AM EDT [facility] NRBC 0.0 <1.0 % LAB HEMETOLOGY METHOD 02/13/2025 10:45 AM EDT [facility] NRBC Absolute 0.00 <0.10 K/mcL LAB HEMETOLOGY METHOD 02/13/2025 10:45 AM EDT [facility] Blood Venous blood specimen / Unknown Venipuncture / Unknown 02/13/2025 8:31 AM EDT 02/13/2025 10:20 AM EDT us Fawad Ortega MD LAB BLOOD ORDERABLES Final Resu lt Performing Organization Address [facility]/ZIP Co de Phone Number [facility] [address] [place] [address], [place] [phone] * (ABNORMAL) Magnesium (02/13/2025 8:31 AM EDT) Only the most recent of3 resultswithin the time period is included. Magnesium 1.7(L) 1.9 - 2.6 mg/dL LAB CHEMISTRY METHOD 02/13/2025 11:10 AM EDT [facility] Blood Venous blood specimen / Unknown Venipuncture / Unknown 02/13/2025 8:31 AM EDT 02/13/2025 10:15 AM EDT us Fawad Ortega MD LAB BLOOD ORDERABLES Final Resu lt Performing Organization Address City/[facility]/ZIP Co de Phone Number [facility] [address] [place] [address], [place] [phone] * (ABNORMAL) Comprehensive metabolic panel (02/13/2025 8:31 AM EDT) Only the most recent of3 resultswithin the time period is included. Sodium 136 133 - 145 mmol/L LAB CHEMISTRY METHOD 02/13/2025 11:10 AM [facility] Potassium 4.1 3.5 - 5.5 mmol/L LAB CHEMISTRY METHOD 02/13/2025 11:10 AM [facility] Chloride 102 96 - 110 mmol/L LAB CHEMISTRY METHOD 02/13/2025 11:10 AM [facility] CO2 26 21 - 32 mmol/L LAB CHEMISTRY METHOD 02/13/2025 11:10 AM [facility] Anion Gap 8 3 - 11 LAB CHEMISTRY METHOD 02/13/2025 11:10 AM [facility] Glucose 128(H) 70 - 100 mg/dL LAB CHEMISTRY METHOD 02/13/2025 11:10 AM [facility] BUN 23 5 - 25 mg/dL LAB CHEMISTRY METHOD 02/13/2025 11:10 AM [facility] Creatinine 1.56(H) 0.50 - 1.10 mg/dL LAB CHEMISTRY METHOD 02/13/2025 11:10 AM [facility] eGFR 33(L) >=60 mL/min/1. 73m2 LAB CHEMISTRY METHOD 02/13/2025 11:10 AM [facility] Comment:Calculation based on the Chronic Kidney Disease Epidemiology Collaboration (CKD-EPI) equation refit without adjustment for race. BUN/Creatinine Ratio 14.7 LAB CHEMISTRY METHOD 02/13/2025 11:10 AM [facility] Calcium 9.3 8.5 - 10.5 mg/dL LAB CHEMISTRY METHOD 02/13/2025 11:10 AM [facility] AST (SGOT) 21 10 - 42 unit/L LAB CHEMISTRY METHOD 02/13/2025 11:10 AM [facility] ALT (SGPT) 14 10 - 60 unit/L LAB CHEMISTRY METHOD 02/13/2025 11:10 AM [facility] Alkaline Phosphatase 60 42 - 121 unit/L LAB CHEMISTRY METHOD 02/13/2025 11:10 AM [facility] Total Protein 7.3 6.0 - 8.0 g/dL LAB CHEMISTRY METHOD 02/13/2025 11:10 AM [facility] Albumin 3.4 3.2 - 5.0 g/dL LAB CHEMISTRY METHOD 02/13/2025 11:10 AM [facility] Total Bilirubin 0.3 0.0 - 1.4 mg/dL LAB CHEMISTRY METHOD 02/13/2025 11:10 AM [facility] Blood Venous blood specimen / Unknown Venipuncture / Unknown 02/13/2025 8:31 AM EDT 02/13/2025 10:15 AM EDT us Fawad Ortega MD LAB BLOOD ORDERABLES Final Resu lt [facility] [address] [place] [address], from Last 3 Months Insurance [facility] MEDICARE MEDICAID - [place] [facility] Care Teams Ramp Flight Attendant Relationship Specialty Start Date End Date Fawad Ortega MD [address] [place] [address] PCP - General Internal Medicine 01/30/25
--- OUTSIDE RECORDS SUMMARY | 2025-03-23 14:05 | XMS_ITS | Patient Health Record ---
Author Organization [facility] Address [address] [place] [address] Care Team Providers Care Fur Glosser Name Role Phone Mitul Mccrary Primary Care Provider Rob bueno Quyen De Leon Unavailable [phone] Allergies Allergen (clinical drug ingredient) Drug/Non Drug [...] Oral; Duration: 30 Active Magnesium Active Calcitonin ([place]) 200 UNIT/ACT USE 1 SPRAY NASALLY QD. [...] Oral; Duration: 90 Active Vitamin D (Ergocalciferol) 37918 UNIT TK 1 C PO ONCE A WEEK Oral; Duration: 90 Not-Taking traMADol HCl 50 MG (Schedule IV Drug) T K 2 TS PO TID Oral; Duration: 30 Active Zauowwqzpa-CKAB-Ccygpbky 50-325-40 MG 1 capsule as needed Orally [...] Problem Acquired hammer toe of right foot (4893537323261046 ) Other hammer toe(s) (acquired), right foot (M20.41) Active confirmed Problem Acquired hammer toe of left foot (0983796213645982 ) Other hammer toe(s) (acquired), left foot (M20.42) Active confirmed Problem Non-pressure chronic ulcer of other part of left foot limited to breakdown of skin (L97.521) Active confirmed Problem Chronic ulcer of foot (655497437) Non-pressure chronic ulcer of left heel and midfoot with fat layer exposed (L97.422) Active confirmed Problem Polyneuropathy due to type 2 diabetes mellitus (969685192) Type 2 diabetes mellitus with diabetic polyneuropathy (E11.42) Active confirmed Problem Primary gout (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) Idiopathic gout, right ankle and foot (M10.071) Active confirmed Problem Foot ulcer due to type 2 diabetes mellitus (9149588494533) Type 2 diabetes mellitus with foot ulcer (E11.621) Active confirmed Problem Acquired hammer toe of left foot (9633937034952693 ) Hammertoe of left foot (M20.42) Active confirmed Problem Acquired hammer toe of right foot (5717427408318587 ) Hammertoe of right foot (M20.41) Active confirmed Problem Bilateral atherosclerosis of arteries of lower limbs (disorder) (4820049501240485 7) Atherosclerosis of artery of both lower extremities (I70.203) Active confirmed Problem 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) Active confirmed Problem Gouty arthritis of left foot (3704957560975110 ) Gouty arthritis of left foot (M10.9) Active confirmed Problem Arthritis of left ankle (6893224753726625 ) Arthritis of left ankle (M19.072) Active confirmed Problem Neuropathic ulce r of left heel, limited to breakdown of skin (L97.421) Active confirmed Response to treatment Vital Signs Blood pressure diastolic 75 mm Hg 06/13/2024 Height 5 ft 3 in in 06/13/2024 Blood pressure systolic 130 mm Hg 06/13/2024 Weight 198 lbs 06/13/2024 BMI 35.07 kg/m2 06/13/2024 Encounters Encounter Location Date Provider Diagnosis [address] [address] 05/25/2024 Quyen De Leon Non-pressure chronic ulcer of left heel and midfoot with fat layer exposed L97.422 ; Type 2 diabetes mellitus with foot ulcer E11.621 and Atherosclerosis of artery of both lower extremities I70.[address] [address] 06/13/2024 Quyen De Leon Non-pressure chronic ulcer of left heel and midfoot with fat layer exposed L97.422 ; Atherosclerosis of artery of both lower extremities I70.203 and Ingrown nail L60.[address] [address] 08/04/2024 Quyen De Leon Arthritis of left ankle M19.072 and Lower extremity edema R60.[address] [place] [address] 06/09/2024 Quyen Pintoaker [facility] [address] [address] 06/15/2024 Quyen De Leon [facility] [address] [address] 06/22/2024 Quyen De Leon Ingrown nail L60.[address] [facility] [address] 08/15/2024 Quyen De Leon [facility] [address] 11/28/2024 Quyen De Leon Assessments Encounter Date [...] X ray : Foot, right 3V 08/30/2018 41676- Removal of Foreign Body, Subcut 0 11/25/2016 X ray : Ankle, right 3V 02/27/2020 Insurance Providers Payer Name Payer Address Payer Phone Subscriber Number Group Number Insured Name Patient Relationship to Insured Coverage Start Date Coverage End Date Medicare National [employer] [address] [place] [address] [id number] Wanda Blum Self - patient is the insured 1 [facility] [address] [place] [address] [id number] Mitul Blum Spouse - patient is the spouse of the insured [facility] [address] [place] [id number] Wanda Blum Self - patient is the [...] Back sx 03/10/2016 Hospitalization History Reason Date(Month/Year) [facility] Bladder infection medication 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
--- OUTSIDE RECORDS SUMMARY | 2025-03-23 14:05 | XMS_ITS | Encounter Summary ---
Author Organization [facility] Address [address] [place] [address] Phone Care Team Providers Care Clinical Mental Health Counselor Name Role Phone Mitul Gracia EXECUTIVE PRODUCER PROMOS Primary Care Provider [phone] Reason for Visit * Reason Comments Med Refill Encounter Details Date Type Department Care Team (Late Contact Info) Description 11/02/2019 Refill [facility] [place] [address] [place] [address] Balaji Nascimento MD Social History Tobacco Use [...] [place] [address] Contact Info) Description 04/04/2025 2:10 PM EDT Office Visit [facility] [place], [address] [place] [address] Sarbjit Palumbo MD [address] [place] [address] [address] [place]ís [place] [address] documented as of this encounter Visit Diagnoses Not on filedocumented in this encounter Care Teams Clinical Mental Health Counselor Relationship Specialty Start Date End Date Mitul Garcia NP [address] [place] [address] PCP - General 05/24/19 documented as of this encounter
--- OUTSIDE RECORDS SUMMARY | 2025-03-23 14:05 | XMS_ITS | Encounter Summary ---
Author Organization [facility] Address [address] [place] [address] Phone Care Team Providers Care Concrete Bucket Loader Name Role Phone Mitul Garcia DRAMATIC READER Primary Care Provider [phone] Reason for Visit * Reason Comments Med Refill Encounter Details Date Type Department Care Team (Late Contact Info) Description 06/24/2022 Refill [facility] [address] [place] [phone] Balaji Nascimento MD Social History Tobacco Use [...] Office Visit [facility] [address] [place] [address] Sarbjit Palumbo MD [address] [place] [address] [place] [place] [address] documented as of this encounter Visit Diagnoses Not on filedocumented in this encounter Care Teams Concrete Bucket Loader Relationship Specialty Start Date End Date Mitul Garcia NP [address] [place] [address] PCP - General 05/24/19 documented as of this encounter
--- OUTSIDE RECORDS SUMMARY | 2025-03-23 14:05 | XMS_ITS | Patient Health Record ---
Author Organization [facility] Address [address] [place] [address] Care Team Providers Care Assistant Manager Of Operations Name Role Phone LYNN GARCIA Primary Care [...] date:01/06/2025 03:54:32 PM Interpretation: Performing Lab: Notes/Report: [facility] [address] [place] [address] Fluoroscopy Report Signed Patient: Ranjan Thompson MR#: [id number] 57 : 1945 Acct:[id number] Age/Sex: 79 / F ADM Date: 01/06/25 Loc: [facility] Attending Dr: Rc Kathleen MD Ordering Physician: Rc Kathleen MD Date of Service: 01/06/25 Procedure(s): FL upper GI w air Accession Number(s): [id number] cc: Rc Kathleen MD; Lynn Garcia [facility] EXAMINATION: XR FLUOROSCOPY UPPER GI WITH AIR [...] OV> 01/06/25 1002 DD/ TD/TT: 01/06/25 0843 Analysis Analyst: SAVAGE Reason For Referral No Information Medications Medication SIG (Take, Route, Frequency, Duration) Notes Start Date End Date Status Mtqklvguor-EEAA-Edalludb Active Creon 59141-28697 UNIT 2 capsules with m eals and [...] Problem Status W/U Status Risk Notes Problem 53119342 Hypertension (I10) Active confirmed Problem 791806948 Abnormal celiac antibody panel (R89.4) Active confirmed Problem Gastroesophageal reflux disease (107035563) GERD (gastroesophageal reflux disease) (K21.9) Active confirmed Problem 73465188 Diarrhea, unspecified type (R19.7) Active confirmed Problem 34384283 Irritable bowel syndrome, unspecified type (K58.9) Active confirmed Problem 83760333 Exocrine pancreatic insufficiency (K86.81) Active confirmed Problem 91875526 Irritable bowel syndrome with both constipation and diarrhea (K58.2) Active confirmed Problem 20217054463820 Colon cancer screening declined (Z53.20) Active confirmed Problem 104051093 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 Vital Signs Temperature 97.1 degrees Fahrenheit 11/16/2024 Blood pressure diastolic 01 mm Hg 11/16/2024 Height 63 in 11/16/2024 Blood pressure systolic 001 mm Hg 11/16/2024 Weight 188 lbs 11/16/2024 BMI 33.3 kg/m2 11/16/2024 Encounters Encounter Location Date Provider Diagnosis [facility] [address] [place] [phone] 08/11/2024 Rc Kathleen Jr Gastroesophageal reflux disease K21.9 ; Exocrine pancreatic insufficiency K86.81 and Irritable bowel syndrome, unspecified type K58.9 [facility] [address] [place] [phone] 11/16/2024 Rc Kathleen Jr Hiatal hernia K44.9 ; GERD (gastroesophageal reflux disease) K21.9 and Exocrine pancreatic insufficiency K86.81 [facility] [address] [place] [phone] 01/06/2025 Rc Kathleen Jr Assessments Encounter Date [...] Date MEDICARE OF [place] [address] [place] [address] [id number] PRECHTL, RANJAN Self - patient is the insured [facility] [address] [place], [place] [id number] [id number] PRECHTL, RANJAN Self - patient is the insured [email or web address] [address] [place] [id number] PRECL, RNAJAN Self - patient is the insured Medical [...]
--- OUTSIDE RECORDS SUMMARY | 2025-03-23 14:05 | XMS_ITS | Encounter Summary ---
Author Organization [facility] Address [address] [place] [address] Phone Care Team Providers Care Manager Property Name Role Phone Mitul Garcia CASH ROOM CLERK Primary Care Provider [phone] Reason for Visit * Reason Comments Med Refill Encounter Details Date Type Department Care Team (Late st Contact Info) Description 07/01/2022 Refill [facility] [address] [place] [address] Balaji Nascimento MD Social History Tobacco Use [...] Type Department Care Team ([facility] Contact Info) Description 04/04/2025 2:10 PM EDT Office Visit [facility] [address] [place] [address] Sarbjit Palumbo MD [address] [place] [address] [place] [place] [address] documented as of this encounter Visit Diagnoses Not on filedocumented in this encounter Care Teams Manager Property Relationship Specialty Start Date End Date Mitul Garcia NP [address] [place] [address] PCP - General 05/24/19 documented as of this encounter
--- OUTSIDE RECORDS SUMMARY | 2025-03-23 14:05 | XMS_ITS | Encounter Summary ---
Author Organization [facility] Address [address] [place] [address] Phone Care Team Providers Care Sales Order Administrator Name Role Phone Mitul Garcia HOUSE FURNISHINGS SUPERVISOR Primary Care Provider [phone] Encounter Details Date Type Department Care Team ([facility] Contact Info) Description 07/29/2021 Documentation Only [facility] [address] [place] [address] [place] [employer] [address] [place] [address] Social History Tobacco Use Types Packs/Day Years Used Date Smoking Tobacco: Former Cigarettes Q uit: 07/20/1964 Comments Unknown Sex and Gender Information Value Date Recorded Sex Assigned at Not on file Legal Sex Female 4:34 PM EST Gender Identity Not on file Sexual Orientation Not on file documented as of this encounter Plan of Treatment Upcoming Encounters Date Type Department Care Team ([facility] Contact Info) Description 04/04/2025 2:10 PM EDT Office Visit [facility] [address] [place] [address] Sarbjit Palumbo MD [address] [place] [address] [place] [place] [address] documented as of this encounter Visit Diagnoses Not on filedocumented in this encounter Care Teams Sales Order Administrator Relationship Specialty Start Date End Date Mitul Garcia NP [address] [place] [address] PCP - General 05/24/19 documented as of this encounter
--- OUTSIDE RECORDS SUMMARY | 2025-03-23 14:05 | XMS_ITS | Encounter Summary ---
Author Organization [facility] Address [address] [place] [address] Phone Care Team Providers Care Egg Smeller Name Role Phone Mitul Garcia INGREDIENT SCALER Primary Care Provider [phone] Reason for Visit * Reason Comments Med Refill Encounter Details Date Type Department Care Team (Late Contact Info) Description 10/20/2019 Refill [facility] [address] [place] [address] Balaji Nascimento MD Social History [...] Upcoming Encounters Date Type Department Care Team ([facility] Contact Info) Description 04/04/2025 2:10 PM EDT Office Visit [facility] [place], [address] [place] [address] Sarbjit Palumbo MD [address] [place] [address] [place] [place] [address] documented as of this encounter Visit Diagnoses Not on filedocumented in this encounter Care Teams Egg Smeller Relationship Specialty Start Date End Date Mitul Garcia NP [address] [place] [address] PCP - General 05/24/19 documented as of this encounter
--- OUTSIDE RECORDS SUMMARY | 2025-03-23 14:05 | XMS_ITS | Encounter Summary ---
Author Organization [facility] Address [address] [place] [address] Care Team Providers Care Product Controller Name Role Phone Fawad Ortega MD Primary Care Provider [phone] Encounter Details Date Type Department Care Team (Latest Contact Info) Description 02/24/[address] [facility] - Main Lab [address] [facility] [place] [address] Fawad Ortega MD [address] [place] [address] Type 2 diabetes mellitus without [...] metabolism documented in this encounter Care Teams Product Controller Relationship Specialty Start Date End Date Fawad Ortega MD [address] [place] [address] PCP - General Internal Medicine 01/30/25 documented as of this encounter
--- OUTSIDE RECORDS SUMMARY | 2025-03-23 14:06 | XMS_ITS | Encounter Summary ---
Author Organization [facility] Address [address] [place] [address] Care Team Providers Care Principal Java Software Engineer Name Role Phone Fawad Ortega MD Primary Care Provider [phone] Encounter Details Date Type Department Care Team (Latest Contact Info) Description 01/30/[address] [facility] - Main Lab [address] [facility] [place] [address] Fawad Ortega MD [address] [place] [address] Type 2 diabetes mellitus with [...] nonketotic hyperglycemic-hyperosm olar coma (NKHHC) ([facility] V24, [facility] V28) Magnesium deficiency documented in [...] [facility] [address] [place] [address], * (ABNORMAL) Comprehensive metabolic panel (01/30/2025 5:57 AM EDT) [facility] Sodium 138 133 - 145 mmol/L LAB CHEMISTRY METHOD 01/30/2025 5:02 PM [facility] Potassium 4.2 3.5 - 5.5 mmol/L LAB CHEMISTRY METHOD 01/30/2025 5:02 PM [facility] Chloride 103 96 - 110 mmol/L LAB CHEMISTRY METHOD 01/30/2025 5:02 PM [facility] CO2 26 21 - 32 mmol/L LAB CHEMISTRY METHOD 01/30/2025 5:02 PM [facility] Anion Gap 9 3 - 11 LAB CHEMISTRY METHOD 01/30/2025 5:02 PM [facility] Glucose 86 70 - 100 mg/dL LAB CHEMISTRY METHOD 01/30/2025 5:02 PM [facility] BUN 30(H) 5 - 25 mg/dL LAB CHEMISTRY METHOD 01/30/2025 5:02 PM [facility] Creatinine 1.68(H) 0.50 - 1.10 mg/dL LAB CHEMISTRY METHOD 01/30/2025 5:02 PM [facility] eGFR 31(L) >=60 mL/min/1. 73m2 LAB CHEMISTRY METHOD 01/30/2025 5:02 PM [facility] Comment:Calculation based on the Chronic Kidney Disease Epidemiology Collaboration (CKD-EPI) equation refit without adjustment for race. BUN/Creatinine Ratio 17.9 LAB CHEMISTRY METHOD 01/30/2025 5:02 PM [facility] Calcium 8.9 8.5 - 10.5 mg/dL LAB CHEMISTRY METHOD 01/30/2025 5:02 PM [facility] AST (SGOT) 18 10 - 42 unit/L LAB CHEMISTRY METHOD 01/30/2025 5:02 PM [facility] ALT (SGPT) 15 10 - 60 unit/L LAB CHEMISTRY METHOD 01/30/2025 5:02 PM [facility] Alkaline Phosphatase 50 42 - 121 unit/L LAB CHEMISTRY METHOD 01/30/2025 5:02 PM [facility] Total Protein 6.3 6.0 - 8.0 g/dL LAB CHEMISTRY METHOD 01/30/2025 5:02 PM [facility] Albumin 3.0(L) 3.2 - 5.0 g/dL LAB CHEMISTRY METHOD 01/30/2025 5:02 PM [facility] Total Bilirubin 0.2 0.0 - 1.4 mg/dL LAB CHEMISTRY METHOD 01/30/2025 5:02 PM [facility] Blood Venous blood specimen / Unknown Venipuncture / Unknown 01/30/2025 5:57 AM EDT 01/30/2025 12:26 PM EDT us Fawad Ortega MD LAB BLOOD ORDERABLES Final Resu lt [facility] [address] [place] [address], * (ABNORMAL) Complete blood count (01/30/2025 5:57 [...] [facility] [address] [place] [address], documented in this encounter Visit Diagnoses Diagnosis Type 2 diabetes mellitus with hyperosmolarity without nonketotic hyperglycemic-hyperosmolar coma (NKHHC) (CMS/HCC V24, CMS/HCC V28) Magnesium deficiency Disorders of magnesium metabolism documented in this encounter Care Teams Principal Java Software Engineer Relationship Specialty Start Date End Date Fawad Ortega MD [address] [place] [address] PCP - General Internal Medicine 01/30/25 documented as of this encounter
--- OUTSIDE RECORDS SUMMARY | 2025-03-23 14:06 | XMS_ITS | Encounter Summary ---
Author Organization [facility] Address [address] [place] [address] Phone Care Team Providers Care Mortgage Loan Assistant Name Role Phone Mitul Garcia ANGLE SHEAR OPERATOR Primary Care Provider [phone] Encounter Details Date Type Department Care Team ([facility] Contact Info) Description 01/08/2023 Documentation Only [facility] [address] [place] [address] [place] [address] [place] [address] Social History Tobacco Use Types Packs/Day [...] [facility] Contact Info) Description 04/04/2025 2:10 PM EDT Office Visit [facility] [address] [place] [address] Sarbjit Palumbo MD [address] [place] [address] Dr. [place]ías [place] [address] documented as of this encounter Visit Diagnoses Not on filedocumented in this encounter Care Teams Mortgage Loan Assistant Relationship Specialty Start Date End Date Mitul Garcia NP [address] [place] [address] PCP - General 05/24/19 documented as of this encounter
--- OUTSIDE RECORDS SUMMARY | 2025-03-23 14:06 | XMS_ITS | Clinical Summary ---
Author Organization [facility] [place], Address [address] [place] [address] [place] [address] Phone Care Team Providers Care Pipe Coverer And Insulator Name Role Phone Lynn Garcia NP Primary Care Provider [phone] Allergies Active Allergy Reactions Criticality Noted Date [...] hours 180 tablet 3 09/18/2023 Active Creon 00130-55703 units capsule 2 capsules with meals and [...] Visit [facility] [place], [address] [place] [address] Sarbjit Palumbo MD Stage 3b chronic kidney [...] Visit [facility] [place], [address] [place] [address] Sarbjit Palumbo MD [address] [facility] [address] [place] [address] Health Maintenance Due Date Last Done Comments [...] PM EDT) Hemoglobin A1C 6.3(H) (4.0-5.6) % [facility] Comment: MONITORING: In known diabetic patients, hemoglobin A1c targets should be discussed with health care provider. DIAGNOSTIC USE: The [place] [employer] Association (ADA) and the World Health [...] Supplement 1 Testing performed or reported by [facility], a Service of [facility], [address] [place] [address] Zach Engle MD, Flat Breakdown Processor [facility]# [id number] Blood specimen (specimen) Venous blood / Unknown 05/12/2023 12:23 PM EDT 05/12/2023 12:26 PM EDT us Balaji Nascimento MD LAB BLOOD ORDERABLES Final Res ult [facility] from Last 3 Months or Most Recently Relevant to Health Maintenance Insurance Medicare [facility] Medicare [facility] Medicaid [place] Care Teams Pipe Coverer And Insulator Relationship Specialty Start Date End Date Lynn Garcia NP [address] [place], [place] [phone] PCP - General 05/24/19
--- OUTSIDE RECORDS SUMMARY | 2025-03-23 14:06 | XMS_ITS | Encounter Summary ---
Author Organization [facility] [place], Address [address] [place] [address] Phone Care Team Providers Care Stereoptician Name Role Phone Mitul Garcia NP Primary Care Provider [phone] Encounter Details Date Type Department Care Team (Late Contact Info) Description 09/16/2023 Documentation Only [facility] [address] [place] [place] [address] [place] [address] [place] [address] Social History Tobacco Use Types Packs/Day Years Used Date Smoking Tobacco: Former Cigarettes Q uit: 07/20/1964 Comments Unknown Sex and Gender Information Value Date Recorded Sex Assigned at Not on file Legal Sex Female 4:34 PM EST Gender Identity Not on file Sexual Orientation Not on file documented as of this encounter Plan of Treatment Upcoming Encounters Date Type Department Care Team ([facility] Contact Info) Description 04/04/2025 2:10 PM EDT Office Visit [facility] [address] [place] [place] [address] Sarbjit Palumbo MD [address] [facility] [address] [place] [place] [address] documented as of this encounter Visit Diagnoses Not on filedocumented in this encounter Care Teams Stereoptician Relationship Specialty Start Date End Date Mitul Garcia NP [address] [place] [address] PCP - General 05/24/19 documented as of this encounter
--- OUTSIDE RECORDS SUMMARY | 2025-03-23 14:06 | XMS_ITS | Encounter Summary ---
Author Organization [facility] [place], Address [address] [place] [address] Phone Care Team Providers Care Fisheries Specialist Name Role Phone Mitul Garcia CLINICAL TRIAL SPECIALIST Primary Care Provider [phone] Encounter Details Date Type Department Care Team ([facility] Contact Info) Description 02/19/2024 Orders Only [facility] [address] [place] [address] Sarbjit Palumbo MD [address] [place] [address] Dr. Elías [place] [address] Gitelman syndrome Social History Tobacco [...] Upcoming Encounters Date Type Department Care Team ([facility] Contact Info) Description 04/04/2025 2:10 PM EDT Office Visit [facility] [address] [place] [address] Sarbjit Palumbo MD [address] [place] [address] 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
--- OUTSIDE RECORDS SUMMARY | 2025-03-23 14:06 | XMS_ITS | Encounter Summary ---
Author Organization [facility] Address [address] [place] [address] Care Team Providers Care Limousine Rental Clerk Name Role Phone Fawad Ortega MD Primary Care Provider [phone] Encounter Details Date Type Department Care Team (Latest Contact Info) Description 02/17/2025 Lab Requisition [facility] Lab [address] [facility] [place] [address] Fawad Ortega MD [address] [place] [address] Type 2 diabetes mellitus without [...] metabolism documented in this encounter Care Teams Limousine Rental Clerk Relationship Specialty Start Date End Date Fawad Ortega MD [address] [place] [address] PCP - General Internal Medicine 01/30/25 documented as of this encounter
--- OUTSIDE RECORDS SUMMARY | 2025-03-23 14:06 | XMS_ITS | Encounter Summary ---
Author Organization [facility] [place], Address [address] [place] [address] Phone Care Team Providers Care Venetian Blind Cleaner Name Role Phone Mitul Garcia SQL ENGINEER Primary Care Provider [phone] Encounter Details Date Type Department Care Team ([facility] Contact Info) Description 05/13/2024 Orders Only [facility] Of [address] [place] [address] Sarbjit Palumbo MD [address] [place] [address] [place] [address] Gitelman syndrome Social History Tobacco [...] Upcoming Encounters Date Type Department Care Team ([facility] Contact Info) Description 04/04/2025 2:10 PM EDT Office Visit [facility] [address] [place] [address] Sarbjit Palumbo MD [address] [place] [address] 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
--- OUTSIDE RECORDS SUMMARY | 2025-03-23 14:06 | XMS_ITS | Encounter Summary ---
Author Organization [facility] Address [address] [place] [address] Care Team Providers Care Hospice Case Manager Name Role Phone Fawad Ortega MD Primary Care Provider [phone] Encounter Details Date Type Department Care Team (Latest Contact Info) Description 02/12/2025 Lab Requisition [facility] - Main Lab [address] [facility] [address] Fawad Ortega MD [address] [place] [address] Type 2 diabetes mellitus without [...] (ABNORMAL) Magnesium (02/13/2025 8:31 AM EDT) Pathologist [facility] Magnesium 1.7(L) 1.9 - 2.6 mg/dL LAB CHEMISTRY METHOD 02/13/2025 11:10 AM EDT [facility] Blood Venous blood specimen / Unknown Venipuncture / Unknown 02/13/2025 8:31 AM EDT 02/13/2025 10:15 AM EDT us Fawad Ortega MD LAB BLOOD ORDERABLES Final Resu lt [facility] [address] [place] [address], * (ABNORMAL) Complete blood count (02/13/2025 8:31 AM EDT) [facility] WBC 9.6 4.8 - 10.8 K/mcL LAB HEMETOLOGY METHOD 02/13/2025 10:45 AM [facility] RBC 3.90 3.80 - 4.80 M/[facility] LAB HEMETOLOGY METHOD 02/13/2025 10:45 AM T [facility] Hemoglobin 10.8(L) 11.5 - 16.0 g/dL LAB HEMETOLOGY METHOD 02/13/2025 10:45 AM [facility] Hematocrit 34.3(L) 35.0 - 47.0 % LAB HEMETOLOGY METHOD 02/13/2025 10:45 AM EDT [facility] MCV 88.9 79.0 - 98.0 FL LAB HEMETOLOGY METHOD 02/13/2025 10:45 AM T [facility] MCH 28.0 27.0 - 32.0 pcg LAB HEMETOLOGY METHOD 02/13/2025 10:45 AM [facility] MCHC 31.5(L) 32.0 - 37.0 g/dL LAB HEMETOLOGY METHOD 02/13/2025 10:45 AM EDT [facility] RDW 13.5 11.0 - 15.0 % LAB HEMETOLOGY METHOD 02/13/2025 10:45 AM EDT [facility] Platelets 406(H) 130 - 400 K/mcL LAB HEMETOLOGY METHOD 02/13/2025 10:45 AM EDT [facility] MPV 10.7 7.0 - 11.0 FL LAB HEMETOLOGY METHOD 02/13/2025 10:45 AM EDT [facility] NRBC 0.0 <1.0 % LAB HEMETOLOGY METHOD 02/13/2025 10:45 AM EDT [facility] NRBC Absolute 0.00 <0.10 K/mcL LAB HEMETOLOGY METHOD 02/13/2025 10:45 AM EDT [facility] Blood Venous blood specimen / Unknown Venipuncture / Unknown 02/13/2025 8:31 AM EDT 02/13/2025 10:20 AM EDT us Fawad Ortega MD LAB BLOOD ORDERABLES Final Resu lt [facility] [address] [place] [address], * (ABNORMAL) Comprehensive metabolic panel (02/13/2025 8:31 AM EDT) Sodium 136 133 - 145 mmol/L LAB CHEMISTRY METHOD 02/13/2025 11:10 AM EDT [facility] Potassium 4.1 3.5 - 5.5 mmol/L LAB CHEMISTRY METHOD 02/13/2025 11:10 AM EDT [facility] Chloride 102 96 - 110 mmol/L LAB CHEMISTRY METHOD 02/13/2025 11:10 AM EDT [facility] CO2 26 21 - 32 mmol/L LAB CHEMISTRY METHOD 02/13/2025 11:10 AM [facility] Anion Gap 8 3 - 11 LAB CHEMISTRY METHOD 02/13/2025 11:10 AM [facility] Glucose 128(H) 70 - 100 mg/dL LAB CHEMISTRY METHOD 02/13/2025 11:10 AM [facility] BUN 23 5 - 25 mg/dL LAB CHEMISTRY METHOD 02/13/2025 11:10 AM [facility] Creatinine 1.56(H) 0.50 - 1.10 mg/dL LAB CHEMISTRY METHOD 02/13/2025 11:10 AM [facility] eGFR 33(L) >=60 mL/min/1. 73m2 LAB CHEMISTRY METHOD 02/13/2025 11:10 AM [facility] Comment:Calculation based on the Chronic Kidney Disease Epidemiology Collaboration (CKD-EPI) equation refit without adjustment for race. BUN/Creatinine Ratio 14.7 LAB CHEMISTRY METHOD 02/13/2025 11:10 AM [facility] Calcium 9.3 8.5 - 10.5 mg/dL LAB CHEMISTRY METHOD 02/13/2025 11:10 AM [facility] AST (SGOT) 21 10 - 42 unit/L LAB CHEMISTRY METHOD 02/13/2025 11:10 AM [facility] ALT (SGPT) 14 10 - 60 unit/L LAB CHEMISTRY METHOD 02/13/2025 11:10 AM [facility] Alkaline Phosphatase 60 42 - 121 unit/L LAB CHEMISTRY METHOD 02/13/2025 11:10 AM [facility] Total Protein 7.3 6.0 - 8.0 g/dL LAB CHEMISTRY METHOD 02/13/2025 11:10 AM [facility] Albumin 3.4 3.2 - 5.0 g/dL LAB CHEMISTRY METHOD 02/13/2025 11:10 AM [facility] Total Bilirubin 0.3 0.0 - 1.4 mg/dL LAB CHEMISTRY METHOD 02/13/2025 11:10 AM EDT [facility] Blood Venous blood specimen / Unknown Venipuncture / Unknown 02/13/2025 8:31 AM EDT 02/13/2025 10:15 AM EDT us Fawad Ortega MD LAB BLOOD ORDERABLES Final Resu lt [facility] [address] [place] [address], documented in this encounter Visit Diagnoses Diagnosis Type 2 diabetes mellitus without complications (CMS/HCC V24, CMS/HCC V28) Magnesium deficiency Disorders of magnesium metabolism documented in this encounter Care Teams Hospice Case Manager Relationship Specialty Start Date End Date Fawad Ortega MD [address] [place] [address] PCP - General Internal Medicine 01/30/25 documented as of this encounter
--- OUTSIDE RECORDS SUMMARY | 2025-03-23 14:06 | XMS_ITS | Encounter Summary ---
Author Organization [facility] [place], Address [address] [place] [address] Phone Care Team Providers Care Travel Clerk Name Role Phone Mitul Garcia MAITRE D Primary Care Provider [phone] Encounter Details Date Type Department Care Team ([facility] Contact Info) Description 11/27/2023 Orders Only [facility] [address] [address] Sarbjit Palumbo MD [address] [place] [address] [place] [place] [address] Gitelman syndrome Social History Tobacco [...] ([facility] Contact Info) Description 04/04/2025 2:10 PM EDT Office Visit [facility] [address] [place] [address] Sarbjit Palumbo MD [address] [place] [address] Dr. [place]ías [place] [address] documented as of this encounter Visit Diagnoses Diagnosis Gitelman syndrome documented in this encounter Care Teams Travel Clerk Relationship Specialty Start Date End Date Mitul Garcia NP [address] [place] [address] PCP - General 05/24/19 documented as of this encounter
--- OUTSIDE RECORDS SUMMARY | 2025-03-23 14:06 | XMS_ITS | Encounter Summary ---
Author Organization [facility] Address [address] [place] [address] Phone Care Team Providers Care Ld Teacher Name Role Phone Mitul Garcia DATABASE DESIGNER Primary Care Provider [phone] Encounter Details Date Type Department Care Team ([facility] Contact Info) Description 11/27/2022 Documentation Only [facility] [address] [place] [address] Italia Rivers [address] [place] [address] Social History Tobacco Use Types Packs/Day [...] Visit [facility] [address] [place] [address] Sarbjit Palumbo MD [address] [place] [address] [place] [place] [phone] documented as of this encounter Visit Diagnoses Not on filedocumented in this encounter Care Teams Ld Teacher Relationship Specialty Start Date End Date Mitul Garcia NP [address] [place] [address] PCP - General 05/24/19 documented as of this encounter
--- OUTSIDE RECORDS SUMMARY | 2025-03-23 14:06 | XMS_ITS | Encounter Summary ---
Author Organization [facility] [place], Address [address] [place] [address] Phone Care Team Providers Care Time Study Analyst Name Role Phone Mitul Garcia BYPRODUCTS OPERATOR Primary Care Provider [phone] Encounter Details Date Type Department Care Team ([facility] Contact Info) Description 08/05/2024 Orders Only [facility] [address] [place] [address] Sarbjit Palumbo MD [address] [place] [address] [place] [place]ías [place] [address] Gitelman syndrome Social History Tobacco [...] Visit [facility] [address] [place] [address] Sarbjti Palumbo MD [address] [place] [address] [place] [address] documented as of this encounter Visit Diagnoses Diagnosis Gitelman syndrome documented in this encounter Care Teams Time Study Analyst Relationship Specialty Start Date End Date Mitul Garcia NP [address] [place] [address] PCP - General 05/24/19 documented as of this encounter
--- OUTSIDE RECORDS SUMMARY | 2025-03-23 14:06 | XMS_ITS | Encounter Summary ---
Author Organization [facility] Address [address] [place] [address] Phone Care Team Providers Care Lease Administrator Name Role Phone Mitul Garcia NP Primary Care Provider [phone] Encounter Details Date Type Department Care Team ([facility] Contact Info) Description 12/25/2022 Documentation Only [facility] [address] [place] [address] Italia Rivers [address] [place] [address] Social History Tobacco Use Types Packs/Day [...] Visit [facility] [address] [place] [address] Sarbjit Palumbo MD [address] [place] [address] [place] [place] [phone] documented as of this encounter Visit Diagnoses Not on filedocumented in this encounter Care Teams Lease Administrator Relationship Specialty Start Date End Date Mitul Garcia NP [address] [place] [address] PCP - General 05/24/19 documented as of this encounter
--- OUTSIDE RECORDS SUMMARY | 2025-03-23 14:06 | XMS_ITS | Encounter Summary ---
Author Organization [facility] Address [address] [place] [address] Care Team Providers Care High School Football Coach Name Role Phone Fawad Ortega MD Primary Care Provider [phone] Encounter Details Date Type Department Care Team (Latest Contact Info) Description 02/04/2025 Lab Requisition [facility] - Main Lab [address] [facility] [place] [address] Fawad Ortega MD [address] [place] [address] Type 2 diabetes mellitus without [...] Complete blood count (02/06/2025 5:27 AM EDT) [facility] WBC 8.2 4.8 - 10.8 K/mcL LAB HEMETOLOGY METHOD 02/06/2025 10:[address] [facility] RBC 3.10(L) 3.80 - 4.80 M/mcL LAB HEMETOLOGY METHOD 02/06/2025 10:[address] [facility] Hemoglobin 9.3(L) 11.5 - 16.0 g/dL LAB HEMETOLOGY METHOD 02/06/2025 10:[address] [facility] Hematocrit 28.0(L) 35.0 - 47.0 % LAB HEMETOLOGY METHOD 02/06/2025 10:[address] [facility] MCV 89.2 79.0 - 98.0 FL LAB HEMETOLOGY METHOD 02/06/2025 10:[address] [facility] MCH 29.6 27.0 - 32.0 pcg LAB HEMETOLOGY METHOD 02/06/2025 10:[address] [facility] MCHC 33.2 32.0 - 37.0 g/dL LAB HEMETOLOGY METHOD 02/06/2025 10:[address] [facility] RDW 13.6 11.0 - 15.0 % LAB HEMETOLOGY METHOD 02/06/2025 10:[address] [facility] Platelets 398 130 - 400 K/mcL LAB HEMETOLOGY METHOD 02/06/2025 10:[address] [facility] MPV 10.6 7.0 - 11.0 FL LAB HEMETOLOGY METHOD 02/06/2025 10:[address] [facility] NRBC 0.0 <1.0 % LAB HEMETOLOGY METHOD 02/06/2025 10:[address] [facility] NRBC Absolute 0.00 <0.10 K/mcL LAB HEMETOLOGY METHOD 02/06/2025 10:23 AM EDT [facility] Blood Venous blood specimen / Unknown Venipuncture / Unknown 02/06/2025 5:27 AM EDT 02/06/2025 9:53 AM EDT us Fawad Ortega MD LAB BLOOD ORDERABLES Final Resu lt Performing Organization Address [facility]/ZIP Co de Phone Number [facility] [address] [place] [address], [place] [phone] * Magnesium (02/06/2025 5:24 AM EDT) [facility] Magnesium 1.9 1.9 - 2.6 mg/dL LAB CHEMISTRY METHOD 02/06/2025 10:46 AM EDT [facility] Blood Venous blood specimen / Unknown Venipuncture / Unknown 02/06/2025 5:24 AM EDT 02/06/2025 10:03 AM EDT us Fawad Ortega MD LAB BLOOD ORDERABLES Final Resu lt Performing Organization Address [facility] Co de Phone Number [facility] [address] [place] [address], [place] [phone] * (ABNORMAL) Comprehensive metabolic panel (02/06/2025 5:24 AM EDT) [facility] Sodium 140 133 - 145 mmol/L LAB [...] 11 LAB CHEMISTRY METHOD 02/06/2025 10:[address] [facility] Glucose 90 70 - 100 mg/dL LAB CHEMISTRY METHOD 02/06/2025 10:[address] [facility] BUN 18 5 - 25 mg/dL LAB CHEMISTRY METHOD 02/06/2025 10:[address] [facility] Creatinine 1.44(H) 0.50 - 1.10 mg/dL LAB CHEMISTRY METHOD 02/06/2025 10:[address] [facility] eGFR 37(L) >=60 mL/min/1. 73m2 LAB CHEMISTRY METHOD 02/06/2025 10:[address] [facility] Comment:Calculation based on the Chronic Kidney Disease Epidemiology Collaboration (CKD-EPI) equation refit without adjustment for race. BUN/Creatinine Ratio 12.5 LAB CHEMISTRY METHOD 02/06/2025 10:[address] [facility] Calcium 8.3(L) 8.5 - 10.5 mg/dL LAB CHEMISTRY METHOD 02/06/2025 10:[address] [facility] AST (SGOT) 13 10 - 42 unit/L LAB CHEMISTRY METHOD 02/06/2025 10:[address] [facility] ALT (SGPT) 11 10 - 60 unit/L LAB CHEMISTRY METHOD 02/06/2025 10:[address] [facility] Alkaline Phosphatase 46 42 - 121 unit/L LAB CHEMISTRY METHOD 02/06/2025 10:[address] [facility] Total Protein 6.2 6.0 - 8.0 g/dL LAB CHEMISTRY METHOD 02/06/2025 10:[address] [facility] Albumin 3.0(L) 3.2 - 5.0 g/dL LAB CHEMISTRY METHOD 02/06/2025 10:[address] [facility] Total Bilirubin 0.2 0.0 - 1.4 mg/dL LAB CHEMISTRY METHOD 02/06/2025 10:46 AM EDT [facility] Blood Venous blood specimen / Unknown Venipuncture / Unknown 02/06/2025 5:24 AM EDT 02/06/2025 10:03 AM EDT Fawad Ortega MD LAB BLOOD ORDERABLES Final Resu lt [facility] [address] [place] [address], documented in this encounter Visit Diagnoses Diagnosis Type 2 diabetes mellitus without complications (CMS/HCC V24, CMS/HCC V28) Magnesium deficiency Disorders of magnesium metabolism documented in this encounter Care Teams High School Football Coach Relationship Specialty Start Date End Date Fawad Ortega MD [address] [place] [address] PCP - General Internal Medicine 01/30/25 documented as of this encounter
--- OUTSIDE RECORDS SUMMARY | 2025-03-23 14:06 | XMS_ITS | Encounter Summary ---
Author Organization [facility] [place], Address [address] [place] [address] Phone Care Team Providers Care Roll Trucker Name Role Phone Mitul Garcia NP Primary Care Provider [phone] Encounter Details Date Type Department Care Team (Late Contact Info) Description 01/08/2024 Documentation Only [facility] [address] [place] [address] [place] [address] [place] [address] Social History Tobacco Use Types Packs/Day [...] [facility] Contact Info) Description 04/04/2025 2:10 PM EDT Office Visit [facility] [address] [place] [address] Sarbjit Palumbo MD [address] [facility] [address] [place] [place] [address] documented as of this encounter Visit Diagnoses Not on filedocumented in this encounter Care Teams Roll Trucker Relationship Specialty Start Date End Date Mitul Garcia NP [address] [place] [address] PCP - General 05/24/19 documented as of this encounter
--- OUTSIDE RECORDS SUMMARY | 2025-03-23 14:06 | XMS_ITS | Encounter Summary ---
Author Organization [facility] Address [address] [place] [address] Phone Care Team Providers Care Spray Dry Operator Name Role Phone Mitul Garcia NP Primary Care Provider [phone] Encounter Details Date Type Department Care Team ([facility] Contact Info) Description 12/25/2022 Documentation Only [facility] [address] [place] [address] Italia Rivers [address] [place] [address] Social History Tobacco Use Types Packs/Day [...] Care Team ([facility] Contact Info) Description 04/04/2025 2:10 PM EDT Office Visit [facility] [address] [place] [address] Sarbjit Palumbo MD [address] [place] [address] [place] [address] documented as of this encounter Visit Diagnoses Not on filedocumented in this encounter Care Teams Spray Dry Operator Relationship Specialty Start Date End Date Mitul Garcia NP [address] [place] [address] PCP - General 05/24/19 documented as of this encounter
== END 2025-03-23 12:51 | disposition home or self-care (01) ==
LOC: HO.MAMMO 12:50
PROVIDERS: PCP Nurse Practitioner Family; Visit Provider Nurse Practitioner Family
DX: Z12.31 Encounter for screening mammogram for malignant neoplasm of breast (principal)
CPT/HCPCS: 77063; 77067

== ENCOUNTER → 2025-03-23 13:00 | Outpatient (BNV) | payer MEDICARE, BC, OTHER, MEDICAID, SELFPAY | PROVIDERS: PCP Nurse Practitioner Family; Visit Provider Internal Medicine | DX: Z12.31 Encounter for screening mammogram for malignant neoplasm of breast (principal) | CPT/HCPCS: 77063; 77067 ==

== ENCOUNTER 2025-03-30 12:00 | Outpatient (REF) | payer MEDICARE, BC, OTHER, MEDICAID, SELFPAY ==
[2025-03-31 09:25] LABS: Appearance Urine Clear; Glucose Urine UA Negative (Negative); PH 6.0 (5.0-9.0); Specific Gravity - Urine 1.010 (1.005-1.025)
--- OUTSIDE RECORDS SUMMARY | 2025-03-31 10:01 | XMS_ITS | Encounter Summary ---
Author Organization [facility] [place], Address [address] [place] [address] Phone Care Team Providers Care Special Police Name Role Phone Mitul Garcia BARREL ASSEMBLER HELPER Primary Care Provider [phone] Encounter Details Date Type Department Care Team ([facility] Contact Info) Description 02/19/2024 Orders Only [facility] [address] [place] [address] Sarbjit Palumbo MD [address] [place] [address] [place] [place] [address] Gitelman syndrome Social History Tobacco [...] Upcoming Encounters Date Type Department Care Team ([facility] Contact Info) Description 04/04/2025 2:10 PM EDT Office Visit [facility] [address] [place] [address] Sarbjit Palumbo MD [address] [place] [address] Dr. [place] [address] documented as of this encounter Visit Diagnoses Diagnosis Gitelman syndrome documented in this encounter Care Teams Special Police Relationship Specialty Start Date End Date Mitul Garcia NP [address] [place] [address] PCP - General 05/24/19 documented as of this encounter
--- OUTSIDE RECORDS SUMMARY | 2025-03-31 10:01 | XMS_ITS | Encounter Summary ---
Author Organization [facility] Address [address] [place] [address] Phone Care Team Providers Care [facility] Name Role Phone Mitul Garcia REIMBURSEMENT CONSULTANT Primary Care Provider [phone] Reason for Visit * Reason Comments Med Refill Encounter Details Date Type Department Care Team (Late Contact Info) Description 10/20/2019 Refill [facility] [address] [place] [address] Balaji Nascimento MD Social History [...] Encounters Date Type Department Care Team ([facility] Contact Info) Description 04/04/2025 2:10 PM EDT Office Visit [facility] [place], [address] [place] [address] Sarbjit Palumbo MD [address] [place] [address] [place] [place] [address] documented as of this encounter Visit Diagnoses Not on filedocumented in this encounter Care Teams [facility] Relationship Specialty Start Date End Date Mitul Garcia NP [address] [place] [address] PCP - General 05/24/19 documented as of this encounter
--- OUTSIDE RECORDS SUMMARY | 2025-03-31 10:01 | XMS_ITS | Encounter Summary ---
Author Organization [facility] Address [address] [place] [address] Phone Care Team Providers Care Bridge Leverman Name Role Phone Mitul Garcia CREDIT COLLECTOR Primary Care Provider Encounter Details Date Type Department Care Team ([facility] Contact Info) Description 12/25/2022 Documentation Only [facility] [address] [place] [address] Italia Rivers [address] [place] [phone] Social History Tobacco Use Types Packs/Day [...] Visit [facility] [address] [place] [address] Sarbjit Palumbo MD [address] [place] [address] [place] [phone] documented as of this encounter Visit Diagnoses Not on filedocumented in this encounter Care Teams Bridge Leverman Relationship Specialty Start Date End Date Mitul Garcia NP [address] [place] [address] PCP - General 05/24/19 documented as of this encounter
--- OUTSIDE RECORDS SUMMARY | 2025-03-31 10:01 | XMS_ITS | Encounter Summary ---
Author Organization [facility] Address [address] [place] [address] Phone Care Team Providers Care Electromechanical Equipment Tester Name Role Phone Mitul Garcia FIELD SERVICE MANAGER Primary Care Provider Encounter Details Date Type Department Care Team ([facility] Contact Info) Description 07/29/2021 Documentation Only [facility] [address] [place] [address] Italia Rivers [address] [place] [phone] Social History Tobacco Use Types Packs/Day Years Used Date Smoking Tobacco: Former Cigarettes Q uit: 07/20/1963 Comments Unknown Sex and Gender Information Value Date Recorded Sex Assigned at Not on file Legal Sex Female 4:34 PM EST Gender Identity Not on file Sexual Orientation Not on file documented as of this encounter Plan of Treatment Upcoming Encounters Date Type Department Care Team ([facility] Contact Info) Description 04/04/2025 2:10 PM EDT Office Visit [facility] [address] [place] [address] Sarbjit Palumbo MD [address] [place] [address] [place] [place]ías [place] [phone] documented as of this encounter Visit Diagnoses Not on filedocumented in this encounter Care Teams Electromechanical Equipment Tester Relationship Specialty Start Date End Date Mitul Garcia NP [address] [place] [address] PCP - General 05/24/19 documented as of this encounter
--- OUTSIDE RECORDS SUMMARY | 2025-03-31 10:01 | XMS_ITS | Encounter Summary ---
Author Organization [facility] Address [address] [place] [address] Phone Care Team Providers Care Special Educator Name Role Phone Mitul Garcia DATABASES COMPUTER CONSULTANT Primary Care Provider [phone] Reason for Visit * Reason Comments Med Refill Encounter Details Date Type Department Care Team (Late Contact Info) Description 10/17/2019 Refill [facility] [address] [place] [phone] Balaji Nascimento MD Social History Tobacco Use [...] Upcoming Encounters Date Type Department Care Team ([facility] Contact Info) Description 04/04/2025 2:10 PM EDT Office Visit [facility] [place], [address] [place] [address] Sarbjit Palumbo MD [address] [place] [address] [place] [place] [address] documented as of this encounter Visit Diagnoses Not on filedocumented in this encounter Care Teams Special Educator Relationship Specialty Start Date End Date Mitul Garcia NP [address] [place] [address] PCP - General 05/24/19 documented as of this encounter
--- OUTSIDE RECORDS SUMMARY | 2025-03-31 10:01 | XMS_ITS | Clinical Summary ---
Author Organization [address] Address [address] [place] [address] Phone Care Team Providers Care Hide Dyer Name Role Phone Fawad Ortega MD Primary Care Provider Encounters Date Type Department Care Team Description 02/24/2025 Lab Requisition [facility] Lab [address] [place] [phone] Fawad Ortega MD Type 2 diabetes mellitus without complications ([facility] V24, [facility] V28); Magnesium deficiency 02/17/2025 Lab Requisition [facility] Lab [address] [place] [phone] Fawad Ortega MD Type 2 diabetes mellitus without complications ([facility] V24, [facility] V28); Magnesium deficiency 02/12/2025 Lab Requisition [facility] Lab [address] [place] [phone] Fawad Ortega MD Type 2 diabetes mellitus without complications ([facility] V24, [facility] V28); Magnesium deficiency 02/04/2025 Lab Requisition [facility] Lab [address] [place] [phone] Fawad Ortega MD Type 2 diabetes mellitus without complications ([facility] V24, [facility] V28); Magnesium deficiency 01/30/2025 Lab Requisition [facility] Lab [address] [place] [phone] Fawad Ortega MD Type 2 diabetes mellitus with hyperosmolarity without nonketotic hyperglycemic-hyperosmol ar coma ([facility]) ([facility] V24, [facility] V28); Magnesium deficiency from Last 3 [...] hyperosmolarity without nonketotic hyperglycemic-hyperosm olar coma ([facility]) ([facility]/HCC V24, CMS/HCC V28) Magnesium deficiency COMPLETE [...] K/mcL LAB HEMETOLOGY METHOD 02/13/2025 10:45 AM [facility] RBC 3.90 3.80 - 4.80 M/mcL LAB HEMETOLOGY METHOD 02/13/2025 10:45 AM [facility] Hemoglobin 10.8(L) 11.5 - 16.0 g/dL LAB HEMETOLOGY METHOD 02/13/2025 10:45 AM [facility] Hematocrit 34.3(L) 35.0 - 47.0 % LAB HEMETOLOGY METHOD 02/13/2025 10:45 AM [facility] MCV 88.9 79.0 - 98.0 FL LAB HEMETOLOGY METHOD 02/13/2025 10:45 AM [facility] MCH 28.0 27.0 - 32.0 pcg LAB HEMETOLOGY METHOD 02/13/2025 10:45 AM [facility] MCHC 31.5(L) 32.0 - 37.0 g/dL LAB HEMETOLOGY METHOD 02/13/2025 10:45 AM [facility] RDW 13.5 11.0 - 15.0 % LAB HEMETOLOGY METHOD 02/13/2025 10:45 AM EDT [facility] Platelets 406(H) 130 - 400 K/mcL LAB HEMETOLOGY METHOD 02/13/2025 10:45 AM EDT [facility] MPV 10.7 7.0 - 11.0 FL LAB HEMETOLOGY METHOD 02/13/2025 10:45 AM EDT [facility] NRBC 0.0 <1.0 % LAB HEMETOLOGY METHOD 02/13/2025 10:45 AM EDT [facility] NRBC Absolute 0.00 <0.10 K/mcL LAB HEMETOLOGY METHOD 02/13/2025 10:45 AM EDT [facility] Blood Venous blood specimen / Unknown Venipuncture / Unknown 02/13/2025 8:31 AM EDT 02/13/2025 10:20 AM EDT us Fawad Ortega MD LAB BLOOD ORDERABLES Final Resu lt Performing Organization Address [facility]/ZIP Co de Phone Number [facility] [address] [place] [address], [place] [phone] * (ABNORMAL) Magnesium (02/13/2025 8:31 AM EDT) Only the most recent of3 resultswithin the time period is included. Magnesium 1.7(L) 1.9 - 2.6 mg/dL LAB CHEMISTRY METHOD 02/13/2025 11:10 AM EDT [facility] Blood Venous blood specimen / Unknown Venipuncture / Unknown 02/13/2025 8:31 AM EDT 02/13/2025 10:15 AM EDT us Fawad Ortega MD LAB BLOOD ORDERABLES Final Resu lt Performing Organization Address City/[facility]/ZIP Co de Phone Number [facility] [address] [place] [address], [place] [phone] * (ABNORMAL) Comprehensive metabolic panel (02/13/2025 8:31 AM EDT) Only the most recent of3 resultswithin the time period is included. Sodium 136 133 - 145 mmol/L LAB CHEMISTRY METHOD 02/13/2025 11:10 AM [facility] Potassium 4.1 3.5 - 5.5 mmol/L LAB CHEMISTRY METHOD 02/13/2025 11:10 AM [facility] Chloride 102 96 - 110 mmol/L LAB CHEMISTRY METHOD 02/13/2025 11:10 AM [facility] CO2 26 21 - 32 mmol/L LAB CHEMISTRY METHOD 02/13/2025 11:10 AM [facility] Anion Gap 8 3 - 11 LAB CHEMISTRY METHOD 02/13/2025 11:10 AM [facility] Glucose 128(H) 70 - 100 mg/dL LAB CHEMISTRY METHOD 02/13/2025 11:10 AM [facility] BUN 23 5 - 25 mg/dL LAB CHEMISTRY METHOD 02/13/2025 11:10 AM [facility] Creatinine 1.56(H) 0.50 - 1.10 mg/dL LAB CHEMISTRY METHOD 02/13/2025 11:10 AM [facility] eGFR 33(L) >=60 mL/min/1. 73m2 LAB CHEMISTRY METHOD 02/13/2025 11:10 AM [facility] Comment:Calculation based on the Chronic Kidney Disease Epidemiology Collaboration (CKD-EPI) equation refit without adjustment for race. BUN/Creatinine Ratio 14.7 LAB CHEMISTRY METHOD 02/13/2025 11:10 AM [facility] Calcium 9.3 8.5 - 10.5 mg/dL LAB CHEMISTRY METHOD 02/13/2025 11:10 AM [facility] AST (SGOT) 21 10 - 42 unit/L LAB CHEMISTRY METHOD 02/13/2025 11:10 AM [facility] ALT (SGPT) 14 10 - 60 unit/L LAB CHEMISTRY METHOD 02/13/2025 11:10 AM [facility] Alkaline Phosphatase 60 42 - 121 unit/L LAB CHEMISTRY METHOD 02/13/2025 11:10 AM [facility] Total Protein 7.3 6.0 - 8.0 g/dL LAB CHEMISTRY METHOD 02/13/2025 11:10 AM [facility] Albumin 3.4 3.2 - 5.0 g/dL LAB CHEMISTRY METHOD 02/13/2025 11:10 AM [facility] Total Bilirubin 0.3 0.0 - 1.4 mg/dL LAB CHEMISTRY METHOD 02/13/2025 11:10 AM [facility] Blood Venous blood specimen / Unknown Venipuncture / Unknown 02/13/2025 8:31 AM EDT 02/13/2025 10:15 AM EDT us Fawad Ortega MD LAB BLOOD ORDERABLES Final Resu lt [facility] [address] [place] [address], from Last 3 Months Insurance [facility] MEDICARE MEDICAID - [place] [facility] Care Teams Hide Dyer Relationship Specialty Start Date End Date Fawad Ortega MD [address] [place] [address] PCP - General Internal Medicine 01/30/25
--- OUTSIDE RECORDS SUMMARY | 2025-03-31 10:01 | XMS_ITS | Encounter Summary ---
Author Organization [facility] Address [address] [place] [address] Phone Care Team Providers Care Paste Up Worker Name Role Phone Mitul Garcia COLLECTIONS DIRECTOR Primary Care Provider [phone] Encounter Details Date Type Department Care Team ([facility] Contact Info) Description 12/25/2022 Documentation Only [facility] [address] [place] [address] Italia Rivers [address] [place] [address] Social History Tobacco Use Types Packs/Day Years Used Date Smoking Tobacco: Former Cigarettes Q uit: 07/20/1963 Comments Unknown Sex and Gender Information Value Date Recorded Sex Assigned at Not on file Legal Sex Female 4:34 PM EST Gender Identity Not on file Sexual Orientation Not on file documented as of this encounter Plan of Treatment Upcoming Encounters Date Type Department Care Team ([facility] Contact Info) Description 04/04/2025 2:10 PM EDT Office Visit [facility] [address] [place] [address] Sarbjit Palumbo MD [address] [place] [address] [place] [place] [phone] documented as of this encounter Visit Diagnoses Not on filedocumented in this encounter Care Teams Paste Up Worker Relationship Specialty Start Date End Date Mitul Garcia NP [address] [place] [address] PCP - General 05/24/19 documented as of this encounter
--- OUTSIDE RECORDS SUMMARY | 2025-03-31 10:01 | XMS_ITS | Encounter Summary ---
Author Organization [facility] Address [address] [place] [address] Phone Care Team Providers Care Billiard Table Repairer Name Role Phone Mitul Garcia MOBILE QA TESTER Primary Care Provider [phone] Encounter Details Date Type Department Care Team ([facility] Contact Info) Description 01/08/2023 Documentation Only [facility] [address] [place] [address] Italia Rivers [address] [place] [address] Social History Tobacco Use Types Packs/Day [...] Team ([facility] Contact Info) Description 04/04/2025 2:10 PM EDT Office Visit [facility] [address] [place] [address] Sarbjit Palumbo MD [address] [place] [address] [place] [phone] documented as of this encounter Visit Diagnoses Not on filedocumented in this encounter Care Teams Billiard Table Repairer Relationship Specialty Start Date End Date Mitul Garcia NP [address] [place] [address] PCP - General 05/24/19 documented as of this encounter
--- OUTSIDE RECORDS SUMMARY | 2025-03-31 10:01 | XMS_ITS | Encounter Summary ---
Author Organization [facility] [place], Address [address] [place] [address] Phone Care Team Providers Care Sheet Metal Journeyman Name Role Phone Mitul Garcia NP Primary Care Provider [phone] Encounter Details Date Type Department Care Team (Late Contact Info) Description 01/08/2024 Documentation Only [facility] [employer] [address] [place] [address] [place] [address] [place] [address] Social History Tobacco Use Types Packs/Day [...] [facility] Contact Info) Description 04/04/2025 2:10 PM EDT Office Visit [facility] [employer] [address] [place] [address] Sarbjit Palumbo MD [address] [facility] [address] [place] [place] [phone] documented as of this encounter Visit Diagnoses Not on filedocumented in this encounter Care Teams Sheet Metal Journeyman Relationship Specialty Start Date End Date Mitul Garcia NP [address] [place] [address] PCP - General 05/24/19 documented as of this encounter
--- OUTSIDE RECORDS SUMMARY | 2025-03-31 10:01 | XMS_ITS | Encounter Summary ---
Author Organization [facility] Address [address] [place] [phone] Care Team Providers Care Bpm Analyst Name Role Phone Fawad Ortega MD Primary Care Provider [phone] Encounter Details Date Type Department Care Team (Latest Contact Info) Description 02/24/2025 Lab Requisition [facility] [address] [facility] [place] [address] Fawad Ortega MD [address] [place] [address] Type 2 diabetes mellitus without [...] metabolism documented in this encounter Care Teams Bpm Analyst Relationship Specialty Start Date End Date Fawad Ortega MD [address] [place] [address] PCP - General Internal Medicine 01/30/25 documented as of this encounter
--- OUTSIDE RECORDS SUMMARY | 2025-03-31 10:01 | XMS_ITS | Encounter Summary ---
Author Organization [facility] Address [address] [place] [address] Phone Care Team Providers Care Sales Representative Public Utilities Name Role Phone Mitul Garcia BRUSH HAND Primary Care Provider [phone] Reason for Visit * Reason Comments Med Refill Encounter Details Date Type Department Care Team (Late Contact Info) Description 06/24/2022 Refill [facility] [address] [place] [phone] Balaji Nascimento MD Social History Tobacco Use [...] Encounters Date Type Department Care Team ([facility] Contact Info) Description 04/04/2025 2:10 PM EDT Office Visit [facility] [address] [place] [address] Sarbjit Palumbo MD [address] [place] [address] [place] [place]ías [place] [address] documented as of this encounter Visit Diagnoses Not on filedocumented in this encounter Care Teams Sales Representative Public Utilities Relationship Specialty Start Date End Date Mitul Garcia NP [address] [place] [address] PCP - General 05/24/19 documented as of this encounter
--- OUTSIDE RECORDS SUMMARY | 2025-03-31 10:01 | XMS_ITS | Encounter Summary ---
Author Organization [facility] [place], Address [address] [place] [address] Phone Care Team Providers Care Counter Tacker Name Role Phone Mitul Garcia PAINTER ASSISTANT Primary Care Provider [phone] Encounter Details Date Type Department Care Team ([facility] Contact Info) Description 05/13/2024 Orders Only [facility] [address] [place] [address] Sarbjit Palumbo MD [address] [place] [address] [place] [place] [address] Gitelman syndrome Social History Tobacco [...] Upcoming Encounters Date Type Department Care Team ([facility] Contact Info) Description 04/04/2025 2:10 PM EDT Office Visit [facility] [address] [place] [address] Sarbjit Palumbo MD [address] [place] [address] [place] [address] documented as of this encounter Visit Diagnoses Diagnosis Gitelman syndrome documented in this encounter Care Teams Counter Tacker Relationship Specialty Start Date End Date Mitul Garcia NP [address] [place] [address] PCP - General 05/24/19 documented as of this encounter
--- OUTSIDE RECORDS SUMMARY | 2025-03-31 10:01 | XMS_ITS | Encounter Summary ---
Author Organization [facility] Address [address] [place] [address] Phone Care Team Providers Care Supply Chain Assistant Name Role Phone Mitul Garcia SOFTWARE ASSET MANAGER Primary Care Provider [phone] Reason for Visit * Reason Comments Med Refill Encounter Details Date Type Department Care Team (Late Contact Info) Description 11/02/2019 Refill [facility] [address] [place] [phone] Balaji Nascimento MD Social History Tobacco Use [...] Upcoming Encounters Date Type Department Care Team ([facility] Contact Info) Description 04/04/2025 2:10 PM EDT Office Visit [facility] [place], [address] [place] [address] Sarbjit Palumbo MD [address] [place] [address] [place] [address] documented as of this encounter Visit Diagnoses Not on filedocumented in this encounter Care Teams Supply Chain Assistant Relationship Specialty Start Date End Date Mitul Garcia NP [address] [place] [address] PCP - General 05/24/19 documented as of this encounter
--- OUTSIDE RECORDS SUMMARY | 2025-03-31 10:01 | XMS_ITS | Encounter Summary ---
Author Organization [facility] [place], Address [address] [place] [address] Phone Care Team Providers Care Boom Tender Name Role Phone Mitul Garcia ANIMAL CYTOLOGIST Primary Care Provider [phone] Encounter Details Date Type Department Care Team ([facility] Contact Info) Description 11/27/2023 Orders Only [facility] Of [address] [place] [address] Sarbjit Palumbo MD [address] [place] [address] [place] [address] Gitelman syndrome Social History Tobacco [...] Team ([facility] Contact Info) Description 04/04/2025 2:10 PM EDT Office Visit [facility] [address] [place] [address] Sarbjit Palumbo MD [address] [place] [address] [place] [address] documented as of this encounter Visit Diagnoses Diagnosis Gitelman syndrome documented in this encounter Care Teams Boom Tender Relationship Specialty Start Date End Date Mitul Garcia NP [address] [place] [address] PCP - General 05/24/19 documented as of this encounter
--- OUTSIDE RECORDS SUMMARY | 2025-03-31 10:01 | XMS_ITS | Encounter Summary ---
Author Organization [facility] Address [address] [place] [address] Phone Care Team Providers Care Curtain Cutter Name Role Phone Mitul Garcia KNIFE MACHINE OPERATOR Primary Care Provider [phone] Reason for Visit * Reason Comments Med Refill Encounter Details Date Type Department Care Team (Late st Contact Info) Description 07/01/2022 Refill [facility] [address] [place] [phone] Balaji Nascimento MD Social History Tobacco Use [...] Office Visit [facility] [address] [place] [address] Sarbjit Palumbo MD [address] [place] [address] [place] [address] documented as of this encounter Visit Diagnoses Not on filedocumented in this encounter Care Teams Curtain Cutter Relationship Specialty Start Date End Date Mitul Garcia NP [address] [place] [address] PCP - General 05/24/19 documented as of this encounter
--- OUTSIDE RECORDS SUMMARY | 2025-03-31 10:01 | XMS_ITS | Encounter Summary ---
Author Organization [facility] Address [address] [place] [address] Care Team Providers Care Automotive Fuel Injection Servicer Name Role Phone Fawad Ortega MD Primary Care Provider [phone] Encounter Details Date Type Department Care Team (Latest Contact Info) Description 02/12/2025 Lab Requisition [facility] Lab [address] [facility] [email or web address] [address] Fawad Ortega MD [address] [place] [address] Type 2 diabetes mellitus without [...] (ABNORMAL) Magnesium (02/13/2025 8:31 AM EDT) Pathologist [facility] Magnesium 1.7(L) 1.9 - 2.6 mg/dL LAB CHEMISTRY METHOD 02/13/2025 11:10 AM EDT [facility] Blood Venous blood specimen / Unknown Venipuncture / Unknown 02/13/2025 8:31 AM EDT 02/13/2025 10:15 AM EDT us Fawad Ortega MD LAB BLOOD ORDERABLES Final Resu lt [facility] [address] [place] [address], * (ABNORMAL) Complete blood count (02/13/2025 8:31 AM EDT) [facility] WBC 9.6 4.8 - 10.8 K/mcL LAB HEMETOLOGY METHOD 02/13/2025 10:45 AM [facility] RBC 3.90 3.80 - 4.80 [facility] LAB HEMETOLOGY METHOD 02/13/2025 10:45 AM T [facility] Hemoglobin 10.8(L) 11.5 - 16.0 g/dL LAB HEMETOLOGY METHOD 02/13/2025 10:45 AM [facility] Hematocrit 34.3(L) 35.0 - 47.0 % LAB HEMETOLOGY METHOD 02/13/2025 10:45 AM EDT [facility] MCV 88.9 79.0 - 98.0 FL LAB HEMETOLOGY METHOD 02/13/2025 10:45 AM T [facility] MCH 28.0 27.0 - 32.0 pcg LAB HEMETOLOGY METHOD 02/13/2025 10:45 AM [facility] MCHC 31.5(L) 32.0 - 37.0 g/dL LAB HEMETOLOGY METHOD 02/13/2025 10:45 AM EDT [facility] RDW 13.5 11.0 - 15.0 % LAB HEMETOLOGY METHOD 02/13/2025 10:45 AM EDT [facility] Platelets 406(H) 130 - 400 K/mcL LAB HEMETOLOGY METHOD 02/13/2025 10:45 AM EDT [facility] MPV 10.7 7.0 - 11.0 FL LAB HEMETOLOGY METHOD 02/13/2025 10:45 AM EDT [facility] NRBC 0.0 <1.0 % LAB HEMETOLOGY METHOD 02/13/2025 10:45 AM EDT [facility] NRBC Absolute 0.00 <0.10 K/mcL LAB HEMETOLOGY METHOD 02/13/2025 10:45 AM EDT [facility] Blood Venous blood specimen / Unknown Venipuncture / Unknown 02/13/2025 8:31 AM EDT 02/13/2025 10:20 AM EDT us Fawad Ortega MD LAB BLOOD ORDERABLES Final Resu lt [facility] [address] [place] [address], * (ABNORMAL) Comprehensive metabolic panel (02/13/2025 8:31 AM EDT) Sodium 136 133 - 145 mmol/L LAB CHEMISTRY METHOD 02/13/2025 11:10 AM EDT [facility] Potassium 4.1 3.5 - 5.5 mmol/L LAB CHEMISTRY METHOD 02/13/2025 11:10 AM EDT [facility] Chloride 102 96 - 110 mmol/L LAB CHEMISTRY METHOD 02/13/2025 11:10 AM EDT [facility] CO2 26 21 - [...] LAB CHEMISTRY METHOD 02/13/2025 11:10 AM EDT [facility] Blood Venous blood specimen / Unknown Venipuncture / Unknown 02/13/2025 8:31 AM EDT 02/13/2025 10:15 AM EDT us Fawad Ortega MD LAB BLOOD ORDERABLES Final Resu lt [facility] [address] [place] [address], documented in this encounter Visit Diagnoses Diagnosis Type 2 diabetes mellitus without complications (CMS/HCC V24, CMS/HCC V28) Magnesium deficiency Disorders of magnesium metabolism documented in this encounter Care Teams Automotive Fuel Injection Servicer Relationship Specialty Start Date End Date Fawad Ortega MD [address] [place] [address] PCP - General Internal Medicine 01/30/25 documented as of this encounter
--- OUTSIDE RECORDS SUMMARY | 2025-03-31 10:01 | XMS_ITS | Encounter Summary ---
Author Organization [facility] [place], Address [address] [place] [address] Phone Care Team Providers Care Janitor Helper Name Role Phone Mitul Garcia TERRAZZO JOURNEYMAN Primary Care Provider Encounter Details Date Type Department Care Team ([facility] Contact Info) Description 08/05/2024 Orders Only [facility] [address] [place] [address] Sarbjit Palumbo MD [address] [place] [address] [place] [address] Gitelman [...] Visit [facility] [address] [address] Sarbjit Palumbo MD [address] [place] [address] [place] [address] documented as of this encounter Visit Diagnoses Diagnosis Gitelman syndrome documented in this encounter Care Teams Janitor Helper Relationship Specialty Start Date End Date Mitul Garcia NP [address] [place] [address] PCP - General 05/24/19 documented as of this encounter
--- OUTSIDE RECORDS SUMMARY | 2025-03-31 10:01 | XMS_ITS | Clinical Summary ---
Author Organization [facility], Address [address] [place] [address] [place] [address] Phone Care Team Providers Care Weaver Hand Loom Name Role Phone Lynn Garcia NP Primary Care Provider [phone] Allergies Active Allergy Reactions Criticality Noted Date [...] hours 180 tablet 3 09/18/2023 Active Creon 23765-52735 units capsule 2 capsules with meals and [...] Visit [facility], [address] [place] [place] [address] Sarbjit Palumbo MD Stage 3b chronic kidney [...] Visit [facility] [place] [facility], [address] [place] [address] Sarbjit Palumbo MD [address] [place] [place] [phone] Health Maintenance Due Date Last Done Comments [...] PM EDT) Hemoglobin A1C 6.3(H) (4.0-5.6) % [facility] Comment: MONITORING: In known diabetic patients, hemoglobin A1c targets should be discussed with health care provider. DIAGNOSTIC USE: The [place] Diabetes Association (ADA) and the World Health [...] Supplement 1 Testing performed or reported by [facility], a Service of [facility], [address] [place] [address] Zach Engle MD, Auto Air Conditioning Apprentice [facility]# [id number] Blood specimen (specimen) Venous blood / Unknown 05/12/2023 12:23 PM EDT 05/12/2023 12:26 PM EDT us Balaji Nascimento MD LAB BLOOD ORDERABLES Final Res ult [facility] from Last 3 Months or Most Recently Relevant to Health Maintenance Insurance Medicare [facility] Medicare [facility] Medicaid [place] Care Teams Weaver Hand Loom Relationship Specialty Start Date End Date Lynn Garcia NP [address] [place], [place] [id number] PCP - General 05/24/19
--- OUTSIDE RECORDS SUMMARY | 2025-03-31 10:01 | XMS_ITS | Encounter Summary ---
Author Organization [facility] Address [address] [place] [address] Care Team Providers Care Gyroscopic Engineering Technician Name Role Phone Fawad Ortega MD Primary Care Provider [phone] Encounter Details Date Type Department Care Team (Latest Contact Info) Description 02/17/2025 Lab Requisition [facility] - Main Lab [address] [facility] [place] [address] Fawad Ortega MD [address] [place] [address] Type 2 diabetes mellitus without [...] metabolism documented in this encounter Care Teams Gyroscopic Engineering Technician Relationship Specialty Start Date End Date Fawad Ortega MD [address] [place] [address] PCP - General Internal Medicine 01/30/25 documented as of this encounter
--- OUTSIDE RECORDS SUMMARY | 2025-03-31 10:01 | XMS_ITS | Encounter Summary ---
Author Organization [facility] [place], Address [address] [place] [address] Phone Care Team Providers Care Post Tronic Machine Operator Name Role Phone Mitul Garcia NP Primary Care Provider [phone] Encounter Details Date Type Department Care Team (Late Contact Info) Description 09/16/2023 Documentation Only [facility] [address] [place] [address] [place] [address] [place] [address] Social History Tobacco Use Types Packs/Day [...] Encounters Date Type Department Care Team ([facility] Contact Info) Description 04/04/2025 2:10 PM EDT Office Visit [facility] [address] [place] [place] [address] Sarbjit Palumbo MD [address] [facility] [address] [place] [place] [phone] documented as of this encounter Visit Diagnoses Not on filedocumented in this encounter Care Teams Post Tronic Machine Operator Relationship Specialty Start Date End Date Mitul Garcia NP [address] [place] [address] PCP - General 05/24/19 documented as of this encounter
--- OUTSIDE RECORDS SUMMARY | 2025-03-31 10:02 | XMS_ITS | Encounter Summary ---
Author Organization [facility] Address [address] [place] [address] Phone Care Team Providers Care Tile Mechanic Helper Name Role Phone Mitul Garcia PIT WORKER POWER SHOVEL Primary Care Provider [phone] Encounter Details Date Type Department Care Team ([facility] Contact Info) Description 11/27/2022 Documentation Only [facility] [address] [place] [address] [place] Rivers [address] [place] [address] Social History Tobacco Use Types Packs/Day [...] Visit [facility] [address] [place] [address] Sarbjit Palumbo MD [address] [place] [address] [place] [place] [phone] documented as of this encounter Visit Diagnoses Not on filedocumented in this encounter Care Teams Tile Mechanic Helper Relationship Specialty Start Date End Date Mitul Garcia NP [address] [place] [address] PCP - General 05/24/19 documented as of this encounter
--- OUTSIDE RECORDS SUMMARY | 2025-03-31 10:02 | XMS_ITS | Encounter Summary ---
Author Organization [facility] Address [address] [place] [address] Care Team Providers Care Heel Turner Name Role Phone Fawad Ortega MD Primary Care Provider [phone] Encounter Details Date Type Department Care Team (Latest Contact Info) Description 01/30/2025 Lab Requisition [facility] - Main Lab [address] [facility] [employer] [place] [address] Fawad Ortega MD [address] [place] [address] Type 2 diabetes mellitus with [...] hyperosmolarity without nonketotic hyperglycemic-hyperosm olar coma (N[facility]HC) ([facility] V24, [facility] V28) Magnesium deficiency documented in this encounter Results * (ABNORMAL) Magnesium (01/30/2025 5:57 AM EDT) Pathologist [facility] Magnesium 1.4(L) 1.9 - 2.6 mg/dL LAB CHEMISTRY METHOD 01/30/2025 5:00 PM EDT [facility] Blood Venous blood specimen / Unknown Venipuncture / Unknown 01/30/2025 5:57 AM EDT 01/30/2025 12:26 PM EDT us Fawad Ortega MD LAB BLOOD ORDERABLES Final Resu lt [facility] [address] [place] [address], * (ABNORMAL) Comprehensive metabolic panel (01/30/2025 5:57 AM EDT) [facility] Sodium 138 133 - 145 mmol/L LAB CHEMISTRY METHOD 01/30/2025 5:02 PM [facility] Potassium 4.2 3.5 - 5.5 mmol/L LAB CHEMISTRY METHOD 01/30/2025 5:02 PM [facility] Chloride 103 96 - 110 mmol/L LAB CHEMISTRY METHOD 01/30/2025 5:02 PM [facility] CO2 26 21 - 32 mmol/L LAB CHEMISTRY METHOD 01/30/2025 5:02 PM [facility] Anion Gap 9 3 - 11 LAB CHEMISTRY METHOD 01/30/2025 5:02 PM [facility] Glucose 86 70 - 100 mg/dL LAB CHEMISTRY METHOD 01/30/2025 5:02 PM [facility] BUN 30(H) 5 - 25 mg/dL LAB CHEMISTRY METHOD 01/30/2025 5:02 PM [facility] Creatinine 1.68(H) 0.50 - 1.10 mg/dL LAB CHEMISTRY METHOD 01/30/2025 5:02 PM [facility] eGFR 31(L) >=60 mL/min/1. 73m2 LAB CHEMISTRY METHOD 01/30/2025 5:02 PM [facility] Comment:Calculation based on the Chronic Kidney Disease Epidemiology Collaboration (CKD-EPI) equation refit without adjustment for race. BUN/Creatinine Ratio 17.9 LAB CHEMISTRY METHOD 01/30/2025 5:02 PM [facility] Calcium 8.9 8.5 - 10.5 mg/dL LAB CHEMISTRY METHOD 01/30/2025 5:02 PM [facility] AST (SGOT) 18 10 - 42 unit/L LAB CHEMISTRY METHOD 01/30/2025 5:02 PM [facility] ALT (SGPT) 15 10 - 60 unit/L LAB CHEMISTRY METHOD 01/30/2025 5:02 PM [facility] Alkaline Phosphatase 50 42 - 121 unit/L LAB CHEMISTRY METHOD 01/30/2025 5:02 PM [facility] Total Protein 6.3 6.0 - 8.0 g/dL LAB CHEMISTRY METHOD 01/30/2025 5:02 PM [facility] Albumin 3.0(L) 3.2 - 5.0 g/dL LAB CHEMISTRY METHOD 01/30/2025 5:02 PM [facility] Total Bilirubin 0.2 0.0 - 1.4 mg/dL LAB CHEMISTRY METHOD 01/30/2025 5:02 PM [facility] Blood Venous blood specimen / Unknown Venipuncture / Unknown 01/30/2025 5:57 AM EDT 01/30/2025 12:26 PM EDT us Fawad Ortega MD LAB BLOOD ORDERABLES Final Resu lt [facility] [address] [place] [address], * (ABNORMAL) Complete blood count (01/30/2025 5:57 [...] Resu lt [facility] [address] [place] [address], documented in this encounter Visit Diagnoses Diagnosis Type 2 diabetes mellitus with hyperosmolarity without nonketotic hyperglycemic-hyperosmolar coma (NKHHC) (CMS/HCC V24, CMS/HCC V28) Magnesium deficiency Disorders of magnesium metabolism documented in this encounter Care Teams Heel Turner Relationship Specialty Start Date End Date Fawad Ortega MD [address] [place] [address] PCP - General Internal Medicine 01/30/25 documented as of this encounter
--- OUTSIDE RECORDS SUMMARY | 2025-03-31 10:02 | XMS_ITS | Encounter Summary ---
Author Organization [facility] Address [address] [place] [address] Care Team Providers Care Manager Sterile Name Role Phone Fawad Ortega MD Primary Care Provider [phone] Encounter Details Date Type Department Care Team (Latest Contact Info) Description 02/04/2025 Lab Requisition [facility] - Main Lab [address] [facility] [place] [address] Fawad Ortega MD [address] [place] [address] Type 2 diabetes mellitus without [...] Complete blood count (02/06/2025 5:27 AM EDT) [facility] WBC 8.2 4.8 - 10.8 K/mcL LAB HEMETOLOGY METHOD 02/06/2025 10:23 AM [facility] RBC 3.10(L) 3.80 - 4.80 M/mcL LAB HEMETOLOGY METHOD 02/06/2025 10:23 AM [facility] Hemoglobin 9.3(L) 11.5 - 16.0 g/dL LAB HEMETOLOGY METHOD 02/06/2025 10:23 AM [facility] Hematocrit 28.0(L) 35.0 - 47.0 % LAB HEMETOLOGY METHOD 02/06/2025 10:23 AM [facility] MCV 89.2 79.0 - 98.0 FL LAB HEMETOLOGY METHOD 02/06/2025 10:23 AM [facility] MCH 29.6 27.0 - 32.0 pcg LAB HEMETOLOGY METHOD 02/06/2025 10:23 AM [facility] MCHC 33.2 32.0 - 37.0 g/dL LAB HEMETOLOGY METHOD 02/06/2025 10:23 AM [facility] RDW 13.6 11.0 - 15.0 % LAB HEMETOLOGY METHOD 02/06/2025 10:23 AM [facility] Platelets 398 130 - 400 K/mcL LAB HEMETOLOGY METHOD 02/06/2025 10:23 AM [facility] MPV 10.6 7.0 - 11.0 FL LAB HEMETOLOGY METHOD 02/06/2025 10:23 AM [facility] NRBC 0.0 <1.0 % LAB HEMETOLOGY METHOD 02/06/2025 10:23 AM [facility] NRBC Absolute 0.00 <0.10 K/mcL LAB HEMETOLOGY METHOD 02/06/2025 10:23 AM EDT [facility] Blood Venous blood specimen / Unknown Venipuncture / Unknown 02/06/2025 5:27 AM EDT 02/06/2025 9:53 AM EDT us Fawad Ortega MD LAB BLOOD ORDERABLES Final Resu lt Performing Organization Address [facility]/ZIP Co de Phone Number [facility] [address] [place] [address], [place] [phone] * Magnesium (02/06/2025 5:24 AM EDT) [facility] Magnesium 1.9 1.9 - 2.6 mg/dL LAB CHEMISTRY METHOD 02/06/2025 10:46 AM EDT [facility] Blood Venous blood specimen / Unknown Venipuncture / Unknown 02/06/2025 5:24 AM EDT 02/06/2025 10:03 AM EDT us Fawad Ortega MD LAB BLOOD ORDERABLES Final Resu lt Performing Organization Address [facility] Co de Phone Number [facility] [address] [place] [address], [place] [phone] * (ABNORMAL) Comprehensive metabolic panel (02/06/2025 5:24 AM EDT) [facility] Sodium 140 133 - 145 mmol/L LAB CHEMISTRY METHOD 02/06/2025 10:46 AM EDT [facility] Potassium 4.4 3.5 - 5.5 mmol/L LAB CHEMISTRY METHOD 02/06/2025 10:46 AM EDT [facility] Chloride 107 96 - 110 mmol/L LAB CHEMISTRY METHOD 02/06/2025 10:46 AM EDT [facility] CO2 25 21 - 32 mmol/L LAB CHEMISTRY METHOD 02/06/2025 10:46 AM EDT [facility] Anion Gap 8 3 - 11 LAB CHEMISTRY METHOD 02/06/2025 10:46 AM [facility] Glucose 90 70 - 100 mg/dL LAB CHEMISTRY METHOD 02/06/2025 10:46 AM [facility] BUN 18 5 - 25 mg/dL LAB CHEMISTRY METHOD 02/06/2025 10:46 AM [facility] Creatinine 1.44(H) 0.50 - 1.10 mg/dL LAB CHEMISTRY METHOD 02/06/2025 10:46 AM [facility] eGFR 37(L) >=60 mL/min/1. 73m2 LAB CHEMISTRY METHOD 02/06/2025 10:46 AM [facility] Comment:Calculation based on the Chronic Kidney Disease Epidemiology Collaboration (CKD-EPI) equation refit without adjustment for race. BUN/Creatinine Ratio 12.5 LAB CHEMISTRY METHOD 02/06/2025 10:46 AM [facility] Calcium 8.3(L) 8.5 - 10.5 mg/dL LAB CHEMISTRY METHOD 02/06/2025 10:46 AM [facility] AST (SGOT) 13 10 - 42 unit/L LAB CHEMISTRY METHOD 02/06/2025 10:46 AM [facility] ALT (SGPT) 11 10 - 60 unit/L LAB CHEMISTRY METHOD 02/06/2025 10:46 AM [facility] Alkaline Phosphatase 46 42 - 121 unit/L LAB CHEMISTRY METHOD 02/06/2025 10:46 AM [facility] Total Protein 6.2 6.0 - 8.0 g/dL LAB CHEMISTRY METHOD 02/06/2025 10:46 AM [facility] Albumin 3.0(L) 3.2 - 5.0 g/dL LAB CHEMISTRY METHOD 02/06/2025 10:46 AM [facility] Total Bilirubin 0.2 0.0 - 1.4 mg/dL LAB CHEMISTRY METHOD 02/06/2025 10:46 AM EDT [facility] Blood Venous blood specimen / Unknown Venipuncture / Unknown 02/06/2025 5:24 AM EDT 02/06/2025 10:03 AM EDT Fawad Ortega MD LAB BLOOD ORDERABLES Final Resu lt [facility] [address] [place] [address], documented in this encounter Visit Diagnoses Diagnosis Type 2 diabetes mellitus without complications (CMS/HCC V24, CMS/HCC V28) Magnesium deficiency Disorders of magnesium metabolism documented in this encounter Care Teams Manager Sterile Relationship Specialty Start Date End Date Fawad Ortega MD [address] [place] [address] PCP - General Internal Medicine 01/30/25 documented as of this encounter
== END 2025-03-30 12:01 | disposition home or self-care (01) ==
LOC: HO.LNP 12:00
PROVIDERS: Visit Provider Nurse Practitioner Family
DX: R30.0 Dysuria (principal)
CPT/HCPCS: 81001; 87086

== ENCOUNTER 2025-04-27 11:42 | Outpatient (AMB) | payer MEDICARE, BC, OTHER, MEDICAID, SELFPAY ==
[2025-04-27 11:44] VITALS: BP 132/70; PULSE 71; O2SAT 95
--- NOTE | 2025-04-27 11:44 | A.OFFVIS_ITS ---
Vital Signs 04/27/25 11:44 Height 5 ft 1 in BMI Reason not done Patient refused/unable BP 132/70 Blood Pressure Location Rt brachial Position Sitting Pulse 71 Pulse Source Pulse Oximeter Pulse Oximetry (%) 95 Oxygen Delivery Method Room Air Intake Visit Reasons: COPD/Shortness of Breath Allergies adhesive tape Allergy (Severe, Verified 04/27/25 11:53) Blister from adhesive bandages and rash from plastic tape phenytoin (From Dilantin) Allergy (Severe, Verified 04/27/25 11:53) Rash sulfamethoxazole (From BACTRIM) Allergy (Unknown, Verified 04/27/25 11:53) UNKNOWN trimethoprim (From BACTRIM) Allergy (Unknown, Verified 04/27/25 11:53) UNKNOWN Medication List - Last Reconciled 04/27/25 by Unruly Siu MD [afo right foot wear daily] albuterol sulfate 90 mcg/actuation 2 puffs inhalation Q6H PRN 30 days ammonium lactate 12% 1 appl topical BID ascorbic acid (vitamin C) 1 g PO DAILY 90 days blood sugar diagnostic As directed blood sugar diagnostic (Accu-Chek Guide test strips) three times a day blood-glucose meter (Accu-Chek Guide Glucose Meter) check blood sugar three times daily shiijqknxq-bctirpjeehtux-whjx 50-325-40 mg 1 tab PO ONCE PRN 30 days calcium citrate 500 mg (2 x 250 mg calcium) PO BID Held on 01/27/25. Instructions: Resume on 02/22/25. cholecalciferol (vitamin D3) 50 mcg PO DAILY [Diabetic shoes & 3 pair inserts as directed] diaper,brief,adult,disposable Uses 3 per day diaper,brief,adult,disposable (Briefs, Adult-Extra Large) Overnight pull up briefs (extra absorbant), size Large, uses 3 per day diclofenac sodium 1% (Voltaren Arthritis Pain) 4 grams topical QID PRN diphenoxylate-atropine 2.5-0.025 mg 1 tab PO QID [disposable bedpads Uses 2 daily] dulaglutide (Trulicity) 3 mg (0.5 mL) subcut QWEEK duloxetine 20 mg PO DAILY 90 days incontinence pad, liner, disp large, superabsorbant, uses 4 per day ipratropium-albuterol 0.5 mg-3 mg(2.5 mg base)/3 mL 3 mL inhalation Q6H PRN 30 days lancets (Unistik 2 Normal Lancet) Test blood sugar twice a day lancets (Safety Lancets) Test blood sugar twice a day-requires safety lancets gehgbm-ynkjrtvt-wnytxde 24,000-76,000 -120,000 unit (Creon) 2 caps PO TIDAC loperamide (Imodium A-D) 2 mg PO Q6H PRN 30 days magnesium L-lactate ER 336 mg PO BID mecobalamin (vitamin B12) 1,000 mcg sublingual DAILY methenamine hippurate 1 g PO DAILY 90 days metoprolol succinate ER 25 mg PO BID Myrbetriq ER (mirabegron) 50 mg PO DAILY 30 days NS nystatin 1 appl topical BID 30 days omeprazole 40 mg PO BID paroxetine HCl 40 mg PO QAM pravastatin 20 mg PO DAILY pregabalin 100 mg PO TID 30 days spironolactone 50 mg PO BID tramadol 50 mg PO BID PRN walker front with wheels only Do you need a note to return to daycare/school/sports/work: No HPI HPI COPD/Shortness of Breath: Details: RANJAN, . IS HERE FOR SHORT-TERM FOLLOW-UP SHE IS FEELING VERY GOOD, OF COURSE HER LOCAL MOTION IS IMPAIRED AND SHE CAME IN THE WHEELCHAIR. SHE SAYS THAT SHE SLEEPS VERY GOOD WITH HER CPAP ON, AND GETS UP TO 8 HOURS SLEEP EVERY NIGHT. THERE IS SOME AIR LEAK FROM THE MASK BECAUSE SHE CAN NOT TIGHTEN THE STRAPS. BUT EVEN WITH THAT AIR LEAK SHE SLEEPS GOOD AND THERE IS NO RESIDUAL SLEEP APNEA. BREATHING HAS BEEN GOOD, WITH THE USE OF DUONEB UPDRAFTS 3 TIMES A DAY SHE HAS BEEN ABLE TO GET UP THE MUCUS AND LUNGS REMAINED CLEAR. SHE HAS NOT NEEDED TO USE OXYGEN. * we had a good and long talk about word piece and interface affairs we also talked about her daughter, who is receiving Chemotharapy for metastatic cancer and is making some progress. [facility] Medical History Acute kidney injury Sepsis Weakness SOB (shortness of breath) Hyperhidrosis Cataract AVN (avascular necrosis of bone) Type 2 diabetes mellitus with diabetic polyneuropathy Hiatal hernia IBS (irritable bowel syndrome) GERD (gastroesophageal reflux disease) On beta jody at home Restrictive lung disease Obesity (BMI 30-39.9) GOPAL on CPAP Anemia B12 deficiency Vitamin D deficiency Breast pain, left Chronic kidney disease, stage 3 Decreased pedal pulses Diabetes mellitus with complication Retinopathy Celiac disease Right rotator cuff tear Osteoarthritis Seizures Gout Neuropathy Gitelman disease Essential hypertension Age-related osteoporosis without current pathological fracture Type 2 diabetes mellitus with other diabetic kidney complication Proteinuria Dyslipidemia Type 2 diabetes mellitus with chronic kidney disease Adult BMI 30.0-30.9 kg/sq m Surgical History History of esophagogastroduodenoscopy (EGD) S/P cardiac catheterization History of carpal tunnel surgery of right wrist History of back surgery Hx of colonoscopy History of total left knee replacement History of left shoulder replacement History of revision of total replacement of right hip joint Hx of fracture of fibula Family History Father No problems noted. Mother Cancer Diabetes Daughter Substance use disorder Mental health disorder Social History Household Members: Spouse and Children Household Members Other:: 2 daughter and their children Housing: House Are you a primary medical care evaluation specialist to a significant other at home: No Do you presently have visiting nurse or other home services: No Alcohol intake: unknown Patient Tobacco Use Status: Never used Tobacco Tobacco use type: Cigarette Years Smoked: 1963 e-Cigarette/Vaping Use: Never Used Second Hand Smoke Exposure: Yes Advance Directives Date on File: 08/26/22 service: No Current occupational status: retired Cognitive needs: No Hearing needs: No Vision needs: Yes Review of Systems Const All systems reviewed & are unremarkable except as noted in HPI and below Reports fatigue and Reports weight gain Eyes Reports no additional complaints ENT Reports no additional complaints Card Denies chest pain, Reports leg edema (MILD ) and Reports dyspnea on exertion Resp Reports as per HPI and Reports dyspnea on exertion GI Reports heartburn (CONTROLLED WITH MED) Musc Reports abnormal gait (PATIENT USING WHEELCHAIR FOR OUTDOORS), Reports back pain and Reports arthralgias Skin/Breast Reports system reviewed and no additional complaints, except as documented Neuro Reports abnormal gait (PATIENT USING WHEELCHAIR FOR OUTDOORS) Psych Reports no additional complaints Endo Reports fatigue Physical Exam COULD NOT BE WEIGHED, SHE WAS IN THE WHEELCHAIR. Const General: comfortable, no acute distress, alert and awake Orientation/consciousness: patient oriented x3 HEENT Head: Yes normal to inspection General nose exam: No nasal polyps present and No nasal discharge present Face and sinus: Yes sinuses nontender Mouth: oropharynx normal Throat: Yes posterior oropharynx normal Eyes General: appearance normal, both eyes and all related structures Neck Neck: Yes normal visual inspection, Yes no lymphadenopathy, Yes trachea midline and Yes no JVD Thyroid: Thyroid normal Chest Chest palpation & inspection: normal inspection of the chest, normal palpation of entire chest wall and no tenderness Resp Other: PERCUSSION NOTE IS RESONANT. BREATH SOUNDS ARE QUITE DISTANT ESPECIALLY OVER THE BASILAR AREAS. THERE ARE NO CREPS OR WHEEZES TODAY . Cardio Palpation: normal PMI Rate: regular rate Rhythm: regular rhythm Heart sounds: no gallops and no murmurs GI Palpation (GI): Soft to palpation, nontender, No hepatosplenomegaly present and no masses Auscultation: normal bowel sounds Back/Spine/Pelvis Thoracic/Lumbar Spine: thoracic and lumbar spine normal to inspection and thoraco-lumbar ROM limited Skin General skin exam: no rashes or lesions noted Neuro General: patient oriented x3, No gait normal (BEEN SHUNT IS NON AMBULATORY, AT HOME CAN WALK WITH A WALKER ) and no focal motor deficits Cranial nerves: Yes CN's II-XII intact bilaterally Extrem General: Yes normal to inspection, Yes no clubbing, cyanosis or edema and Yes no calf tenderness Psych Appearance: grossly normal Speech and movement: Normal speech and movement present Results Reviewed Results Reviewed: COMPLIANCE REPORT FOR THE LAST 30 NIGHTS SHOWS THAT SHE HAS USED 30/30 NIGHTS WITH AVERAGE USE IT PER NIGHT 8 HOURS 48 MINUTES. THERE IS MODERATE AMOUNT OF AIR LEAK. RESIDUAL AHI ONLY 2.9 Assessment & Plan Assessment & Plan (1) COPD (chronic obstructive pulmonary disease): Comment: NOTED ABOVE THE PULMONARY FUNCTION TEST DID NOT SHOW ANY SIGNIFICANT OBSTRUCTIVE DISORDER. BUT CLINICALLY SHE DOES SEEM TO HAVE CHRONIC OBSTRUCTIVE PROBLEM, WHICH HAS BECOME SOMEWHAT MORE SYMPTOMATIC . NOW WITH THE USE OF DUONEB UPDRAFTS 3 TIMES A DAY, SHE DOES NOT HOLD MUCH OF SECRETIONS AND LUNGS REMAIN CLEAR. Code(s): J44.9 - Chronic obstructive pulmonary disease, unspecified Category: Medical Plan: ADVISED TO CONTINUE USING IPRATROPIUM-ALBUTEROL SOLUTION IN THE NEBULIZER Q 6 HOURS WHILE AWAKE ( 3 TIMES A DAY) USE ALBUTEROL HFA 2 PUFFS. Q 6 HOURS ONLY P.R.N. (2) GOPAL on CPAP: Comment: SHE IS A CONFIRMED CASE OF SEVERE OBSTRUCTIVE SLEEP APNEA PER STUDY IN 2018. SHE HAS BEEN TREATED VERY WELL WITH THE USE OF CPAP, FULLFACE MASK OF SMALL SIZE AND PRESSURE. OF 15 CM. SHE LOVES HER CPAP AND IN FACT WITHOUT IT CAN NOT SLEEP. SHE IS USING THE OLD STYLE FULLFACE MASK WHICH IS EASY FOR HER TO PUT ON. HER COMPLIANCE IS 100%. Code(s): G47.33 - Obstructive sleep apnea (adult) (pediatric); Z99.89 - Dependence on other enabling machines and devices Category: Medical Plan: COMMENDED FOR GOOD COMPLIANCE AND ADVISED TO KEEP ON USING THE CPAP EVERY NIGHT . (3) Restrictive lung disease: Comment: HER PREVIOUS PULMONARY FUNCTION TESTING HAS SHOWN THAT SHE DOES NOT HAVE ANY OBSTRUCTIVE AIRWAY DISORDER. SHE DOES HAVE RESTRICTIVE LUNG DISEASE MAINLY DUE TO GROSS OBESITY. SHE DOES HAVE DIFFICULTY IN EXPECTORATING THE MUCUS SOMETIMES, AND MAY BE DUE TO BASILAR HYPOVENTILATION. THIS IS IMPROVED WITH THE USE OF IPRATROPIUM-ALBUTEROL SOLUTION IN THE NEBULIZER 3 TIMES A DAY. Code(s): J98.4 - Other disorders of lung Category: Medical Plan: ADVISED TO CONTINUE DOING DEEP BREATHING EXERCISES AT LEAST 3 TIMES A DAY Coding Level of Care Code Est Pt Level 3 (78080) Diagnoses COPD (chronic obstructive pulmonary disease) J44.9 GOPAL on CPAP G47.33; Z99.89 Restrictive lung disease J98.4
== END 2025-04-27 16:17 | disposition home or self-care (01) ==
LOC: HO.HPS 11:42
PROVIDERS: PCP Nurse Practitioner Family; Visit Provider Internal Medicine
DX: J44.9 Chronic obstructive pulmonary disease, unspecified (principal); G47.33 Obstructive sleep apnea (adult) (pediatric); Z99.89 Dependence on other enabling machines and devices; J98.4 Other disorders of lung
CPT/HCPCS: 99213

== ENCOUNTER → 2025-04-27 11:42 | Outpatient (BNVA) | payer MEDICARE, BC, OTHER, MEDICAID, SELFPAY | PROVIDERS: PCP Nurse Practitioner Family; Visit Provider Internal Medicine | DX: J44.9 Chronic obstructive pulmonary disease, unspecified (principal); J84.9 Interstitial pulmonary disease, unspecified; G47.33 Obstructive sleep apnea (adult) (pediatric); Z99.89 Dependence on other enabling machines and devices | CPT/HCPCS: 99212 ==

== ENCOUNTER 2025-05-05 11:18 | Outpatient (AMB) | payer MEDICARE, BC, OTHER, MEDICAID, SELFPAY ==
--- OUTSIDE RECORDS SUMMARY | 2024-06-10 07:15 | XMS_ITS ---
Author Organization [facility] Address [address] [facility] [place] [address] Care Team Providers Care Financial Reserve Clerk Name Role Phone Mitul Mccrary Primary Care Provider Unav Quyen Hayden [phone] Encounters Encounter Location Date Provider Diagnosis [address] [address] 06/10/2024 Quyen De Leon Plan Of Treatment No Information Progress Notes * Wanda THOMPSON MDOB: (79 yo F)Acc No.[id number]:06/10/2024 Progress Notes Patient: Ashwin Wanda KANG Provider: Tito De Leon DPM :1945 A ge:78 Y S ex:Female Date:06/10/2024 Address:[address] [place], [place] [phone] Pcp:MARQUISE Morin Subjective: * Chief Complaints: * [...] Date: 08/10/2023 Generated for Wilfredo serrato/Taj/eTransmitting on: 02:06 PM EDT
--- OUTSIDE RECORDS SUMMARY | 2024-11-28 11:30 | XMS_ITS ---
Author Organization [facility] Address [address] [place] [address] Care Team Providers Care Shop And Alteration Tailor Name Role Phone Mitul Mccrary Primary Care Provider Unav Quyen Hayden [phone] Encounters Encounter Location Date Provider Diagnosis [address] [address] 11/28/2024 Quyen De Leon Plan Of Treatment No Information Progress Notes * Wanda THOMPSON MDOB: (79 yo F)Acc No.[id number]:11/28/2024 Progress Note Patient: Ashwin JORGE LUIS Wanda Pacheco Provider: Tito De Leon DPM :1945 A ge:79 Y S ex:Female Date:11/28/2024 Address:[address] [place], [place] [phone] Pcp:MARQUISE Morin Subjective: * Chief Complaints: * [...] Leon DPM Date: 0 11/28/2024 Generated for Danyi ng/Fasilviag/eTransmitting on: 1 02:06 PM EDT
--- NOTE | 2025-05-05 11:27 | A.OFFVIS_ITS ---
Intake Visit Reasons: 1y follow up Intake Note: patient presents today for: 1yr follow up urology medications: vitC, myrbetriq methenamine blood thinners: none White Metal Corrosion Proofer Required: No Accompanied by: Self / Same As Patient Allergies adhesive tape Allergy (Severe, Verified 05/05/25 11:29) Blister from adhesive bandages and rash from plastic tape phenytoin (From Dilantin) Allergy (Severe, Verified 05/05/25 11:29) Rash sulfamethoxazole (From BACTRIM) Allergy (Unknown, Verified 05/05/25 11:29) UNKNOWN trimethoprim (From BACTRIM) Allergy (Unknown, Verified 05/05/25 11:29) UNKNOWN HPI Comments Details: Wanda is a pleasant female. She is seen by Dr. Rosado. She is seen for the following urologic conditions - recurrent UTI - overactive bladder - microscopic hematuria Has had 1 bad UTI over the last year We will prescribe standing dose of antibiotics for her to keep at home She promised she will not initiate these without talking to nursing staff in Urology prior Overactive bladder Overactive bladder response to Myrbetriq 50 mg daily Cystitis cystica Has cystitis cystica on prior cystoscopy Has been maintained on methenamine, vitamin-C Microscopic hematuria evaluation Imaging - 09/12 mildly atrophic kidneys, no calculi. [facility] Medical History Acute kidney injury Sepsis Weakness SOB (shortness of breath) Hyperhidrosis Cataract AVN (avascular necrosis of bone) Type 2 diabetes mellitus with diabetic polyneuropathy Hiatal hernia IBS (irritable bowel syndrome) GERD (gastroesophageal reflux disease) On beta jody at home Restrictive lung disease Obesity (BMI 30-39.9) GOPAL on CPAP Anemia B12 deficiency Vitamin D deficiency Breast pain, left Chronic kidney disease, stage 3 Decreased pedal pulses Diabetes mellitus with complication Retinopathy Celiac disease Right rotator cuff tear Osteoarthritis Seizures Gout Neuropathy Gitelman disease Essential hypertension Age-related osteoporosis without current pathological fracture Type 2 diabetes mellitus with other diabetic kidney complication Proteinuria Dyslipidemia Type 2 diabetes mellitus with chronic kidney disease Adult BMI 30.0-30.9 kg/sq m Surgical History History of esophagogastroduodenoscopy (EGD) S/P cardiac catheterization History of carpal tunnel surgery of right wrist History of back surgery Hx of colonoscopy History of total left knee replacement History of left shoulder replacement History of revision of total replacement of right hip joint Hx of fracture of fibula Family History Father No problems noted. Mother Cancer Diabetes Daughter Substance use disorder Mental health disorder Social History Household Members: Spouse and Children Household Members Other:: 2 daughter and their children Housing: House Are you a primary plant care worker to a significant other at home: No Do you presently have visiting nurse or other home services: No Alcohol intake: unknown Patient Tobacco Use Status: Never used Tobacco Tobacco use type: Cigarette Years Smoked: 1963 e-Cigarette/Vaping Use: Never Used Second Hand Smoke Exposure: Yes Advance Directives Date on File: 08/26/22 service: No Current occupational status: retired Cognitive needs: No Hearing needs: No Vision needs: Yes Review of Systems Const Denies chills and Denies fever(s) Card Reports no additional complaints and Denies syncope Resp Denies cough GI Denies abdominal pain and Denies heartburn Reports as per HPI and Denies change in libido Neuro Denies syncope Psych Denies change in libido Endo Denies change in libido Physical Exam Const General: cooperative, healthy appearing, comfortable and no acute distress Orientation/consciousness: patient oriented x3 HEENT Face and sinus: Yes normal facial exam Mouth: moist mucous membranes Neck Neck: Yes normal visual inspection, Yes full ROM and Yes trachea midline Chest Chest palpation & inspection: normal inspection of the chest Resp Effort & Inspection: normal respiratory effort, able to speak in complete sentences and no respiratory distress GI Inspection: Yes normal to inspection Back/Spine/Pelvis Cervical Spine: normal cervical lordosis Thoracic/Lumbar Spine: thoracic and lumbar spine normal to inspection Skin General skin exam: no rashes or lesions noted Neuro General: patient oriented x3, gait normal, tone normal and moves all extremities Extrem General: Yes normal to inspection and Yes capillary refill normal Assessment & Plan Assessment & Plan (1) Cystitis cystica: Code(s): N30.80 - Other cystitis without hematuria Category: Medical (2) UTI (urinary tract infection): Code(s): N39.0 - Urinary tract infection, site not specified Category: Medical Plan Antibiotics provide Medications: Refilled amoxicillin-pot clavulanate 875-125 mg 1 tab PO BID 20 tabs 0RF 10 days N30.80 - Other cystitis without hematuria Patient Instructions: This note is constructed using voice recognition software. While every effort has been made to ensure accuracy pen tester errors may have been included. Imaging studies, laboratory and physical exam results were discussed and reviewed in detail. No major barriers to patient understanding were identified. An opportunity to ask questions regarding the treatment plan was provided. All questions were answered. The patient expressed understanding and agreement with the above treatment plan. The patient is aware they should contact our office by phone for worsening of their current condition or the appearance of new urologic symptoms. Compliance is encouraged with any medications and followup testing that is ordered. It is a privilege to participate in the urologic care of your patient. If you have any questions or concerns regarding treatment for the above conditions, or other urologic issues, please do not hesitate to contact me. The office telephone contact is [phone]. Sincerely, Dr Kashif Bolanos MD, [facility] - Urology Compassionate Specialist Care for the Genitourinary System Coding Level of Care Code Est Pt Level 4 (70545) Complex EM visit Add On G2211 Diagnoses Cystitis cystica N30.80 UTI (urinary tract infection) N39.0
--- OUTSIDE RECORDS SUMMARY | 2025-05-05 14:06 | XMS_ITS | Encounter Summary ---
Author Organization [facility] Address [address] [place] [address] Phone Care Team Providers Care Systems Software Manager Name Role Phone Mitul Garcia CALL CENTER DIRECTOR Primary Care Provider [phone] Reason for Visit * Reason Comments Med Refill Encounter Details Date Type Department Care Team (Late Contact Info) Description 10/17/2019 [facility]ill [facility] [address] [place] [address] Balaji Nascimento MD Social History [...] Encounters Date Type Department Care Team ([facility] Contact Info) Description 06/06/2025 3:20 PM EST Office Visit [facility], [address] [place] [address] Sarbjit Palumbo MD [address] [place] [address] [place] [place] [address] documented as of this encounter Visit Diagnoses Not on filedocumented in this encounter Care Teams Systems Software Manager Relationship Specialty Start Date End Date Mitul Garcia NP [address] [place] [address] PCP - General 05/24/19 documented as of this encounter
--- OUTSIDE RECORDS SUMMARY | 2025-05-05 14:06 | XMS_ITS | Encounter Summary ---
Author Organization [facility] Address [address] [place] [address] Phone Care Team Providers Care Test Rack Operator Name Role Phone Mitul Garcia GLASS CUTTING MACHINE FEEDER Primary Care Provider [phone] Reason for Visit * Reason Comments Med Refill Encounter Details Date Type Department Care Team (Late Contact Info) Description 06/24/2022 Refill [facility] [address] [place] [phone] Balaji Nascimento MD Social History Tobacco Use [...] Upcoming Encounters Date Type Department Care Team ([facility] Contact Info) Description 06/06/2025 3:20 PM EST Office Visit [facility] [address] [place] [address] Sarbjit Palumbo MD [address] [facility] [address] [place] [address] documented as of this encounter Visit Diagnoses Not on filedocumented in this encounter Care Teams Test Rack Operator Relationship Specialty Start Date End Date Mitul Garcia NP [address] [place], [place] [id number] PCP - General 05/24/19 documented as of this encounter
--- OUTSIDE RECORDS SUMMARY | 2025-05-05 14:06 | XMS_ITS | Encounter Summary ---
Author Organization [facility] Address [address] [place] [phone] Care Team Providers Care Station Attendant Name Role Phone Fawad Ortega MD Primary Care Provider [phone] Encounter Details Date Type Department Care Team (Latest Contact Info) Description 02/24/[address] [facility] - Main Lab [address] [facility] [place] [address] Fawad Ortega MD [address] [place] [address] Type 2 diabetes mellitus without [...] metabolism documented in this encounter Care Teams Station Attendant Relationship Specialty Start Date End Date Fawad Ortega MD [address] [place] [address] PCP - General Internal Medicine 01/30/25 documented as of this encounter
--- OUTSIDE RECORDS SUMMARY | 2025-05-05 14:06 | XMS_ITS | Patient Health Record ---
Author Organization [facility] Address [address] [place] [address] Care Team Providers Care Call Center Recruiter Name Role Phone LYNN GARCIA Primary Care Provider Rc Galindo Jr [phone] Allergies Allergen (clinical drug ingredient) Drug/Non Drug Allergy documented on EMR Reaction Allergy Type Onset Date Status phenytoin Dilantin Unknown Drug Allergy Active sulfamethoxazole / trimethoprim Bactrim Unknown Drug Allergy Active plastic tape (uncoded) Unknown Allergy Active Results Component Value Reference Range Notes FL upper GI w air Reviewed date:01/06/2025 03:54:32 PM Interpretation: Performing Lab: Notes/Report: [facility] [address] [place] [address] Fluoroscopy Report Signed Patient: Ranjan Thompson MR#: [id number] 57 : 1945 Acct:[id number] Age/Sex: 79 / F ADM Date: 01/06/25 Loc: [facility] Attending Dr: Rc Kathleen MD Ordering Physician: Rc Kathleen MD Date of Service: 01/06/25 Procedure(s): FL upper GI w air Accession Number(s): [id number] cc: Rc Kathleen MD; Lynn Garcia [facility] EXAMINATION: XR FLUOROSCOPY UPPER GI WITH [...] OV> 01/06/25 1002 DD/ TD/TT: 01/06/25 0843 Slotter Operator: SAVAGE Reason For Referral No Information Medications Medication SIG (Take, Route, Frequency, Duration) Notes Start Date End Date Status Fwxjhikgrk-MQNL-Akjjtbcp Active Creon 37973-53293 UNIT 2 capsules with m eals and 1 capsule with snacks Orally; Duration: 30 days 03/17/2024 Active Magnesium Oxide 400 MG 4-5 tablet Orally daily Active DULoxetine HCl 20 MG Oral; Duration: 16 Active PARoxetine HCl 40 MG 1 tablet in the mor maria luisa Orally Once a day Active traMADol HCl Active Omeprazole 20 MG 1 capsule Orally Onc e a day Active Colyte with Flavor Packs 240 GM As directed Orally Over the specified time.; Duration: 1 day(s) 05/13/2023 Active Lyrica 50 MG 1 capsule Orally Thr ee times a day Active Pregabalin 100 MG Oral; Duration: 90 Active Pravastatin Sodium A ctive Myrbetriq Active Diphenoxylate-Atropine 2.5-0.025 MG TAKE 1 TABLET BY MOUTH EVERY 6 HOURSNEEDED; Duration: 30 days 11/16/2024 Active Spironolactone 50 MG [...] Problem Status W/U Status Risk Notes Problem Hypertension (97294375) Hypertension (I10) Active confirmed Problem Abnormal celiac antibody panel (R89.4) Active confirmed Problem Gastroesophageal reflux disease (044986100) GERD (gastroesophageal reflux disease) (K21.9) Active confirmed Problem Diarrhea (57131125) Diarrhea, unspecified type (R19.7) Active confirmed Problem Irritable bowel syndrome (54379469) Irritable bowel syndrome, unspecified type (K58.9) Active confirmed Problem Exocrine pancreatic insufficiency (51182990) Exocrine pancreatic insufficiency (K86.81) Active confirmed Problem Irritable bowel syndrome (73446260) Irritable bowel syndrome with both constipation and diarrhea (K58.2) Active confirmed Problem Colon cancer screening declined (56373675798689) Colon cancer screening declined (Z53.20) Active confirmed Problem Clostridioides difficile infection (693935038) 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 Vital Signs Temperature 97.1 degrees Fahrenheit 11/16/2024 Blood pressure diastolic 01 mm Hg 11/16/2024 Height 63 in 11/16/2024 Blood pressure systolic 001 mm Hg 11/16/2024 Weight 188 lbs 11/16/2024 BMI 33.3 kg/m2 11/16/2024 Encounters Encounter Location Date Provider Diagnosis [facility] [address] [place] [address] 08/11/2024 Rc Kathleen Jr Gastroesophageal reflux disease K21.9 ; Exocrine pancreatic insufficiency K86.81 and Irritable bowel syndrome, unspecified type K58.9 [facility] [address] [place] [address] 11/16/2024 Rc Kathleen Jr Hiatal hernia K44.9 ; GERD (gastroesophageal reflux disease) K21.9 and Exocrine pancreatic insufficiency K86.81 [facility] [address] [place] [address] 01/06/2025 Rc Kathleen Jr Assessments Encounter Date [...] her present regimen. She will followup in 2026 later in the year to avoid coming [...] MEDICARE OF [place] [address] [place] [address] [phone] [id number] PRECL, RANJAN Self - patient is the insured [facility] [address] [place], [place] [id number] [phone] [id number] PRECL, RANJAN Self - patient is the insured [employer] [address] [place] [id number] [facility], RANJAN Self - patient is the insured [...]
--- OUTSIDE RECORDS SUMMARY | 2025-05-05 14:06 | XMS_ITS | Encounter Summary ---
Author Organization [facility] Address [address] [place] [address] Phone Care Team Providers Care Ice Cream Vault Worker Name Role Phone Mitul Garcia HAND HOSE CUTTER Primary Care Provider [phone] Encounter Details Date Type Department Care Team ([facility] Contact Info) Description 07/29/2021 Documentation Only [facility] [address] [place] [address] Italia Rivers [address] [place] [address] Social History Tobacco Use Types Packs/Day [...] Date Type Department Care Team ([facility] Contact Info) Description 06/06/2025 3:20 PM EST Office Visit [facility] [address] [place] [address] Sarbjit Palumbo MD [address] [place] [address] [place] [phone] documented as of this encounter Visit Diagnoses Not on filedocumented in this encounter Care Teams Ice Cream Vault Worker Relationship Specialty Start Date End Date Mitul Garcia NP [address] [facility] [place] [address] PCP - General 05/24/19 documented as of this encounter
--- OUTSIDE RECORDS SUMMARY | 2025-05-05 14:06 | XMS_ITS | Clinical Summary ---
Author Organization [facility] Address [address] [place] [address] Phone Care Team Providers Care Home Health Rn Name Role Phone Fawad Ortega MD Primary Care Provider Encounters Date Type Department Care Team Description 02/24/[address] [facility] [address] [place] [phone] Fawad Ortega MD Type 2 diabetes mellitus without complications ([facility] V24, CMS/[facility] V28); Magnesium deficiency 02/17/[address] [facility] [address] [place] [phone] Fawad Ortega MD Type 2 diabetes mellitus without complications ([facility] V24, CMS/[facility] V28); Magnesium deficiency 02/12/[address] [facility] [address] [place] [phone] Fawad Ortega MD Type 2 diabetes mellitus without complications ([facility] V24, CMS/[facility] V28); Magnesium deficiency 02/04/[address] [facility] [address] [place] [phone] Fawad Ortega MD Type 2 diabetes mellitus without complications ([facility] V24, [facility] V28); Magnesium deficiency from Last 3 Months [...] Influencers of Health Screening 01/30/2025 COVID-19 Vaccine (1 - 2023-2 5 season) 2025 Influenza Vaccine [...] complications (CMS/HCC V24, CMS/HCC V28) Magnesium deficiency from Last 3 Months Results * (ABNORMAL) Complete blood count (02/13/2025 8:31 AM EDT) Only the most recent of2 resultswithin the time period is included. WBC 9.6 4.8 - 10.8 K/mcL LAB HEMETOLOGY METHOD 02/13/2025 10:45 AM EDT [facility] RBC 3.90 3.80 - 4.80 M/mcL LAB HEMETOLOGY METHOD 02/13/2025 10:45 AM EDT [facility] Hemoglobin 10.8(L) 11.5 - 16.0 g/dL LAB HEMETOLOGY METHOD 02/13/2025 10:45 AM EDT [facility] Hematocrit 34.3(L) 35.0 - 47.0 % LAB HEMETOLOGY METHOD 02/13/2025 10:45 AM EDT [facility] MCV 88.9 79.0 - 98.0 FL LAB HEMETOLOGY METHOD 02/13/2025 10:45 AM EDT [facility] MCH 28.0 27.0 - 32.0 pcg LAB HEMETOLOGY METHOD 02/13/2025 10:45 AM EDT [facility] MCHC 31.5(L) 32.0 - 37.0 g/dL LAB HEMETOLOGY METHOD 02/13/2025 10:45 AM EDT [facility] RDW 13.5 11.0 - 15.0 % LAB HEMETOLOGY METHOD 02/13/2025 10:45 AM T [facility] Platelets 406(H) 130 - 400 K/mcL LAB HEMETOLOGY METHOD 02/13/2025 10:45 AM EDT [facility] MPV 10.7 7.0 - 11.0 FL LAB HEMETOLOGY METHOD 02/13/2025 10:45 AM EDT [facility] NRBC 0.0 <1.0 % LAB HEMETOLOGY METHOD 02/13/2025 10:45 AM T [facility] NRBC Absolute 0.00 <0.10 K/mcL LAB HEMETOLOGY METHOD 02/13/2025 10:45 AM T [facility] Blood Venous blood specimen / Unknown Venipuncture / Unknown 02/13/2025 8:31 AM EDT 02/13/2025 10:20 AM EDT us Fawad Ortega MD LAB BLOOD ORDERABLES Final Resu lt [facility] [address] [place] [address], * (ABNORMAL) Magnesium (02/13/2025 8:31 AM EDT) Only the most recent of2 resultswithin the time period is included. [facility] Magnesium 1.7(L) 1.9 - 2.6 mg/dL LAB CHEMISTRY METHOD 02/13/2025 11:10 AM [facility] Blood Venous blood specimen / Unknown Venipuncture / Unknown 02/13/2025 8:31 AM EDT 02/13/2025 10:15 AM EDT Fawad Ortega MD LAB BLOOD ORDERABLES Final Resu lt [facility] [address] [place] [address], [place] [phone] * (ABNORMAL) Comprehensive metabolic panel (02/13/2025 8:31 AM EDT) Only the most recent of2 resultswithin the time period is included. [facility] Sodium 136 133 - 145 mmol/L LAB CHEMISTRY METHOD 02/13/2025 11:10 AM [facility] Potassium 4.1 3.5 - 5.5 mmol/L LAB CHEMISTRY METHOD 02/13/2025 11:10 AM [facility] Chloride 102 96 - 110 mmol/L LAB CHEMISTRY METHOD 02/13/2025 11:10 AM [facility] CO2 26 21 - 32 mmol/L LAB CHEMISTRY METHOD 02/13/2025 11:10 AM [facility] Anion Gap 8 3 - 11 LAB CHEMISTRY METHOD 02/13/2025 11:10 AM [facility] Glucose 128(H) 70 - 100 mg/dL LAB CHEMISTRY METHOD 02/13/2025 11:10 AM [facility] BUN 23 5 - 25 mg/dL LAB CHEMISTRY METHOD 02/13/2025 11:10 AM [facility] Creatinine 1.56(H) 0.50 - 1.10 mg/dL LAB CHEMISTRY METHOD 02/13/2025 11:10 AM [facility] eGFR 33(L) >=60 mL/min/1. 73m2 LAB CHEMISTRY METHOD 02/13/2025 11:10 AM [facility] Comment:Calculation based on the Chronic Kidney Disease Epidemiology Collaboration (CKD-EPI) equation refit without adjustment for race. BUN/Creatinine Ratio 14.7 LAB CHEMISTRY METHOD 02/13/2025 11:10 AM [facility] Calcium 9.3 8.5 - 10.5 mg/dL LAB CHEMISTRY METHOD 02/13/2025 11:10 AM [facility] AST (SGOT) 21 10 - 42 unit/L LAB CHEMISTRY METHOD 02/13/2025 11:10 AM [facility] ALT (SGPT) 14 10 - 60 unit/L LAB CHEMISTRY METHOD 02/13/2025 11:10 AM [facility] Alkaline Phosphatase 60 42 - 121 unit/L LAB CHEMISTRY METHOD 02/13/2025 11:10 AM [facility] Total Protein 7.3 6.0 - 8.0 g/dL LAB CHEMISTRY METHOD 02/13/2025 11:10 AM [facility] Albumin 3.4 3.2 - 5.0 g/dL LAB CHEMISTRY METHOD 02/13/2025 11:10 AM [facility] Total Bilirubin 0.3 0.0 - 1.4 mg/dL LAB CHEMISTRY METHOD 02/13/2025 11:10 AM [facility] Blood Venous blood specimen / Unknown Venipuncture / Unknown 02/13/2025 8:31 AM EDT 02/13/2025 10:15 AM EDT us Fawad Ortega MD LAB BLOOD ORDERABLES Final Resu lt [facility] [address] [place] [address], from Last 3 Months Insurance [facility] MEDICARE MEDICAID - [place] [facility] Care Teams Home Health Rn Relationship Specialty Start Date End Date Fawad Ortega MD [address] [place] [address] PCP - General Internal Medicine 01/30/25
--- OUTSIDE RECORDS SUMMARY | 2025-05-05 14:06 | XMS_ITS | Encounter Summary ---
Author Organization [facility] Address [address] [place] [address] Phone Care Team Providers Care Box Folding Machine Operator Name Role Phone Mitul Garcia BACK DIGGER OPERATOR Primary Care Provider [phone] Reason for Visit * Reason Comments Med Refill Encounter Details Date Type Department Care Team (Late st Contact Info) Description 07/01/2022 Refill [facility] [address] [place] [phone] Balaji Nascimento MD Social History Tobacco Use [...] Upcoming Encounters Date Type Department Care Team ([facility] Contact Info) Description 06/06/2025 3:20 PM EST Office Visit [facility] [address] [place] [address] Sarbjit Palumbo MD [address] [facility] [address] [place] [address] documented as of this encounter Visit Diagnoses Not on filedocumented in this encounter Care Teams Box Folding Machine Operator Relationship Specialty Start Date End Date Mitul Garcia NP [address] [place] [address] PCP - General 05/24/19 documented as of this encounter
--- OUTSIDE RECORDS SUMMARY | 2025-05-05 14:06 | XMS_ITS | Encounter Summary ---
Author Organization [facility] Address [address] [place] [address] Phone Care Team Providers Care Associate Curator Name Role Phone Mitul Garcia REMOTE SENSING TECHNOLOGIST Primary Care Provider [phone] Reason for Visit * Reason Comments Med Refill Encounter Details Date Type Department Care Team (Late Contact Info) Description 10/20/2019 Refill [facility] [address] [place] [address] Balaji Nascimento MD Social History [...] Team ([facility] Contact Info) Description 06/06/2025 3:20 PM EST Office Visit [facility] [place], [address] [place] [address] Sarbjit Palumbo MD [address] [place] [address] [place] [place] [address] documented as of this encounter Visit Diagnoses Not on filedocumented in this encounter Care Teams Associate Curator Relationship Specialty Start Date End Date Mitul Garcia NP [address] [place] [address] PCP - General 05/24/19 documented as of this encounter
--- OUTSIDE RECORDS SUMMARY | 2025-05-05 14:06 | XMS_ITS | Encounter Summary ---
Author Organization [facility] Address [address] [place] [address] Phone Care Team Providers Care Roller Die Cutting Machine Operator Name Role Phone Mitul Garcia STORE STANDARDS ASSOCIATE Primary Care Provider [phone] Reason for Visit * Reason Comments Med Refill Encounter Details Date Type Department Care Team (Late Contact Info) Description 11/02/2019 Refill [facility] [address] [place] [address] Balaji Nascimento MD Social History [...] ([facility] Contact Info) Description 06/06/2025 3:20 PM EST Office Visit [facility] [place], [address] [place] [address] Sarbjit Palumbo MD [address] [place] [address] [place] [place]ías [place] [address] documented as of this encounter Visit Diagnoses Not on filedocumented in this encounter Care Teams Roller Die Cutting Machine Operator Relationship Specialty Start Date End Date Mitul Garcia NP [address] [place] [address] PCP - General 05/24/19 documented as of this encounter
--- OUTSIDE RECORDS SUMMARY | 2025-05-05 14:06 | XMS_ITS | Patient Health Record ---
Author [facility] [place] Address [address] [place] [address] Care Team Providers Care Trial Mgr Name Role Phone Mitul Mccrary Primary Care Provider Rob bueno Quyen De Leon Unavailable [phone] Allergies Allergen (clinical drug ingredient) Drug/Non Drug [...] Oral; Duration: 30 Active Magnesium Active Calcitonin ([place]) 200 UNIT/ACT USE 1 SPRAY NASALLY QD. [...] Oral; Duration: 90 Active Vitamin D (Ergocalciferol) 07180 UNIT TK 1 C PO ONCE A WEEK Oral; Duration: 90 Not-Taking traMADol HCl 50 MG (Schedule IV Drug) T K 2 TS PO TID Oral; Duration: 30 Active Xrvmocexuo-HZSH-Ctkjxdqj 50-325-40 MG 1 capsule as needed Orally [...] Problem Acquired hammer toe of right foot (8617043104945002 ) Other hammer toe(s) (acquired), right foot (M20.41) Active confirmed Problem Acquired hammer toe of left foot (0757084024552944 ) Other hammer toe(s) (acquired), left foot (M20.42) Active confirmed Problem Non-pressure chronic ulcer of other part of left foot limited to breakdown of skin (L97.521) Active confirmed Problem Chronic ulcer of foot (490839361) Non-pressure chronic ulcer of left heel and midfoot with fat layer exposed (L97.422) Active confirmed Problem Polyneuropathy due to type 2 diabetes mellitus (607433283) Type 2 diabetes mellitus with diabetic polyneuropathy (E11.42) Active confirmed Problem 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) Idiopathic gout, right ankle and foot (M10.071) Active confirmed Problem Foot ulcer due to type 2 diabetes mellitus (0191276275318) Type 2 diabetes mellitus with foot ulcer (E11.621) Active confirmed Problem Acquired hammer toe of left foot (4136746906736435 ) Hammertoe of left foot (M20.42) Active confirmed Problem Acquired hammer toe of right foot (0582242737166360 ) Hammertoe of right foot (M20.41) Active confirmed Problem Bilateral atherosclerosis of arteries of lower limbs (disorder) (2053941052485839 7) Atherosclerosis of artery of both lower extremities (I70.203) Active confirmed Problem 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) Active confirmed Problem Gouty arthritis of left foot (7037036779263553 ) Gouty arthritis of left foot (M10.9) Active confirmed Problem Arthritis of left ankle (7369609902824611 ) Arthritis of left ankle (M19.072) Active confirmed Problem Neuropathic ulce r of left heel, limited to breakdown of skin (L97.421) Active confirmed Response to treatment Vital Signs Blood pressure diastolic 75 mm Hg 06/13/2024 Height 5 ft 3 in in 06/13/2024 Blood pressure systolic 130 mm Hg 06/13/2024 Weight 198 lbs 06/13/2024 BMI 35.07 kg/m2 06/13/2024 Encounters Encounter Location Date Provider Diagnosis [address] [address] 05/25/2024 Quyen De Leon Non-pressure chronic ulcer of left heel and midfoot with fat layer exposed L97.422 ; Type 2 diabetes mellitus with foot ulcer E11.621 and Atherosclerosis of artery of both lower extremities I70.[address] [address] 06/13/2024 Quyen De Leon Non-pressure chronic ulcer of left heel and midfoot with fat layer exposed L97.422 ; Atherosclerosis of artery of both lower extremities I70.203 and Ingrown nail L60.[address] [address] 08/04/2024 Quyen De Leon Arthritis of left ankle M19.072 and Lower extremity edema R60.[address] [place] [address] 06/09/2024 [facility] [address] [address] 06/15/2024 Quyen De Leon [facility] [address] [address] 06/22/2024 Quyenbernadette De Leon Ingrown nail L60.[address] [facility] [address] 08/04/2024 Quyen De Leon [facility] [address] 08/15/2024 Quyen De Leon [facility] [address] [address] 11/28/2024 Quyen De Leon Assessments Encounter Date [...] 01/18/2019 *CBC With Differential/Platelet 01/19/20 19 *Sedimentation Rate-Miquelergren 9 C-Reactive Protein, Quant 08/30/2018 C-Reactive Protein, [...] X ray : Foot, right 3V 08/30/2018 93365- Removal of Foreign Body, Subcut 0 11/25/2016 X ray : Ankle, right 3V 02/27/2020 Insurance Providers Payer Name Payer Address Payer Phone Subscriber Number Group Number Insured Name Patient Relationship to Insured Coverage Start Date Coverage End Date Medicare [employer] [address] [place] [address] [id number] PrechtlWanda Self - patient is the insured [facility] [address] [place] [address] [id number] Mitul Blum Spouse - patient is the spouse of the insured [facility] [address] [place] [address] [id number] Wanda Blum Self - patient is the insured Medical (General) History Medical History History ICD Code Anemia Anxiety Arthritis Back,Hip,and Knee pain Broken bones Headaches Migraines Hiatal hernia High blood pressure Kidney disease Poor circulation Reflux Scarlet fever Vascular phlebitis (clots) Measles Mumps Chicken pox Joint implants/screws Transfusions Diabetes mellitus Surgical History Surgery Date(Month/Year) hip surgery 2001, 2002, 2004 knee surgery 2008 Leg sx (RT) 2000s Back sx 03/10/2016 Hospitalization History Reason Date(Month/Year) [facility] Bladder infection medication 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
--- OUTSIDE RECORDS SUMMARY | 2025-05-05 14:07 | XMS_ITS | Encounter Summary ---
Author Organization [facility] Address [address] [place] [address] Care Team Providers Care Head Still Operator Name Role Phone Fawad Ortega MD Primary Care Provider [phone] Encounter Details Date Type Department Care Team (Latest Contact Info) Description 01/30/2025 Lab Requisition [facility] - Main Lab [address] [facility] [employer]TI[employer] [place] [address] Fawad Ortega MD [address] [place] [address] Type 2 diabetes mellitus with [...] hyperosmolarity without nonketotic hyperglycemic-hyperosm olar coma (NKHHC) ([facility] V24, [facility] V28) Magnesium deficiency documented in this encounter Results * (ABNORMAL) Magnesium (01/30/2025 5:57 AM EDT) Pathologist [facility] Magnesium 1.4(L) 1.9 - 2.6 mg/dL LAB CHEMISTRY METHOD 01/30/2025 5:00 PM EDT [facility] Blood Venous blood specimen / Unknown Venipuncture / Unknown 01/30/2025 5:57 AM EDT 01/30/2025 12:26 PM EDT us Fawad Ortega MD LAB BLOOD ORDERABLES Final Resu lt [facility] [address] [place] [address], * (ABNORMAL) Comprehensive metabolic panel (01/30/2025 5:57 AM EDT) [facility] [address] Sodium 138 133 - 145 mmol/L LAB CHEMISTRY METHOD 01/30/2025 5:[address] [facility] Potassium 4.2 3.5 - 5.5 mmol/L LAB CHEMISTRY METHOD 01/30/2025 5:[address] [facility] Chloride 103 96 - 110 mmol/L LAB CHEMISTRY METHOD 01/30/2025 5:[address] [facility] CO2 26 21 - 32 mmol/L LAB CHEMISTRY METHOD 01/30/2025 5:[address] [facility] Anion Gap 9 3 - 11 LAB CHEMISTRY METHOD 01/30/2025 5:[address] [facility] Glucose 86 70 - 100 mg/dL LAB CHEMISTRY METHOD 01/30/2025 5:[address] [facility] BUN 30(H) 5 - 25 mg/dL LAB CHEMISTRY METHOD 01/30/2025 5:[address] [facility] Creatinine 1.68(H) 0.50 - 1.10 mg/dL LAB CHEMISTRY METHOD 01/30/2025 5:[address] [facility] eGFR 31(L) >=60 mL/min/1. 73m2 LAB CHEMISTRY METHOD 01/30/2025 5:[address] [facility] Comment:Calculation based on the Chronic Kidney Disease Epidemiology Collaboration (CKD-EPI) equation refit without adjustment for race. BUN/Creatinine Ratio 17.9 LAB CHEMISTRY METHOD 01/30/2025 5:[address] [facility] Calcium 8.9 8.5 - 10.5 mg/dL LAB CHEMISTRY METHOD 01/30/2025 5:[address] [facility] AST (SGOT) 18 10 - 42 unit/L LAB CHEMISTRY METHOD 01/30/2025 5:[address] [facility] ALT (SGPT) 15 10 - 60 unit/L LAB CHEMISTRY METHOD 01/30/2025 5:[address] [facility] Alkaline Phosphatase 50 42 - 121 unit/L LAB CHEMISTRY METHOD 01/30/2025 5:[address] [facility] Total Protein 6.3 6.0 - 8.0 g/dL LAB CHEMISTRY METHOD 01/30/2025 5:[address] [facility] Albumin 3.0(L) 3.2 - 5.0 g/dL LAB CHEMISTRY METHOD 01/30/2025 5:[address] [facility] Total Bilirubin 0.2 0.0 - 1.4 mg/dL LAB CHEMISTRY METHOD 01/30/2025 5:[address] [facility] Blood Venous blood specimen / Unknown Venipuncture / Unknown 01/30/2025 5:57 AM EDT 01/30/2025 12:26 PM EDT us Fawad Ortega MD LAB BLOOD ORDERABLES Final Resu lt [facility] [address] [place] [address], * (ABNORMAL) Complete blood count (01/30/2025 5:57 AM EDT) WBC 9.1 4.8 - 10.8 K/mcL LAB HEMETOLOGY METHOD 01/30/2025 1:53 PM EDT [facility] RBC 3.20(L) 3.80 - 4.80 M/mcL LAB HEMETOLOGY METHOD 01/30/2025 1:53 PM EDT [facility] Hemoglobin 9.1(L) 11.5 - 16.0 g/dL LAB HEMETOLOGY METHOD 01/30/2025 1:53 PM EDT [facility] Hematocrit 28.7(L) 35.0 - 47.0 % LAB HEMETOLOGY METHOD 01/30/2025 1:53 PM EDT [facility] MCV 89.7 79.0 - 98.0 FL LAB HEMETOLOGY METHOD 01/30/2025 1:53 PM EDT [facility] MCH 28.4 27.0 - 32.0 pcg LAB HEMETOLOGY METHOD 01/30/2025 1:53 PM EDT [facility] MCHC 31.7(L) 32.0 - 37.0 g/dL LAB HEMETOLOGY METHOD 01/30/2025 1:53 PM EDT [facility] RDW 13.4 11.0 - 15.0 % LAB HEMETOLOGY METHOD 01/30/2025 1:53 PM EDT [facility] Platelets 376 130 - 400 K/mcL LAB HEMETOLOGY METHOD 01/30/2025 1:53 PM EDT [facility] MPV 10.8 7.0 - 11.0 FL LAB HEMETOLOGY METHOD 01/30/2025 1:53 PM EDT [facility] NRBC 0.0 <1.0 % LAB HEMETOLOGY METHOD 01/30/2025 1:53 PM EDT [facility] NRBC Absolute 0.00 <0.10 K/mcL LAB HEMETOLOGY METHOD 01/30/2025 1:53 PM EDT [facility] Blood Venous blood specimen / Unknown Venipuncture / Unknown 01/30/2025 5:57 AM EDT 01/30/2025 12:26 PM EDT us Fawad Ortega MD LAB BLOOD ORDERABLES Final Resu lt [facility] [address] [place] [address], documented in this encounter Visit Diagnoses Diagnosis Type 2 diabetes mellitus with hyperosmolarity without nonketotic hyperglycemic-hyperosmolar coma (NKHHC) (CMS/HCC V24, CMS/HCC V28) Magnesium deficiency Disorders of magnesium metabolism documented in this encounter Care Teams Head Still Operator Relationship Specialty Start Date End Date Fawad Ortega MD [address] [place] [address] PCP - General Internal Medicine 01/30/25 documented as of this encounter
--- OUTSIDE RECORDS SUMMARY | 2025-05-05 14:07 | XMS_ITS | Encounter Summary ---
Author Organization [facility] Address [address] [place] [address] Phone Care Team Providers Care Medicaid Eligibility Specialist Name Role Phone Mitul Garcia RAIL MAINTENANCE WORKER Primary Care Provider [phone] Encounter Details Date Type Department Care Team ([facility] Contact Info) Description 01/08/2023 Documentation Only [facility] [address] [place] [address] Italia Rivers [address] [place] [address] Social History Tobacco Use Types Packs/Day [...] [facility] [address] [place] [address] Sarbjit Palumbo MD [address] [place] [address] [place] [place] [phone] documented as of this encounter Visit Diagnoses Not on filedocumented in this encounter Care Teams Medicaid Eligibility Specialist Relationship Specialty Start Date End Date Mitul Garcia NP [address] [facility] [place] [address] PCP - General 05/24/19 documented as of this encounter
--- OUTSIDE RECORDS SUMMARY | 2025-05-05 14:07 | XMS_ITS | Encounter Summary ---
Author Organization [facility] Address [address] [place] [address] Care Team Providers Care Attendance Officer Name Role Phone Fawad Ortega MD Primary Care Provider [phone] Encounter Details Date Type Department Care Team (Latest Contact Info) Description 02/17/2025 Lab Requisition [facility] - Main Lab 299 [facility] [place] [address] Fawad Ortega MD [address] [place] [address] Type 2 diabetes mellitus without [...] metabolism documented in this encounter Care Teams Attendance Officer Relationship Specialty Start Date End Date Fawad Ortega MD [address] [place] [address] PCP - General Internal Medicine 01/30/25 documented as of this encounter
--- OUTSIDE RECORDS SUMMARY | 2025-05-05 14:07 | XMS_ITS | Encounter Summary ---
Author Organization [facility] [place], Address [address] [place] [address] Phone Care Team Providers Care Front Clerk Name Role Phone Mitul Garcia OCULAR PATHOLOGIST Primary Care Provider [phone] Encounter Details Date Type Department Care Team ([facility] Contact Info) Description 02/19/2024 Orders Only [facility] [address] [place] [address] Sarbjit Palumbo MD [address] [place] [address] [place] [place]ías [place] [address] Gitelman syndrome Social History Tobacco [...] Upcoming Encounters Date Type Department Care Team ([facility] Contact Info) Description 06/06/2025 3:20 PM EST Office Visit [facility] [address] [place] [address] Sarbjit Palumbo MD [address] [place] [address] [place] [place] [address] documented as of this encounter Visit Diagnoses Diagnosis Gitelman syndrome documented in this encounter Care Teams Front Clerk Relationship Specialty Start Date End Date Mitul Garcia NP [address] [place] [address] PCP - General 05/24/19 documented as of this encounter
--- OUTSIDE RECORDS SUMMARY | 2025-05-05 14:07 | XMS_ITS | Encounter Summary ---
Author Organization [facility] Address [address] [place] [address] Care Team Providers Care Chief Transfer And Pumphouse Operator Name Role Phone Fawad Ortega MD Primary Care Provider [phone] Encounter Details Date Type Department Care Team (Latest Contact Info) Description 02/12/2025 Lab Requisition [facility] - Main Lab 299 [facility] [place] [address] Fawad Ortega MD [address] [place] [address] Type 2 diabetes mellitus without [...] Final Resu lt [facility] [address] [place] [address], * (ABNORMAL) Complete blood count (02/13/2025 8:31 AM EDT) [facility] WBC 9.6 4.8 - 10.8 K/mcL LAB HEMETOLOGY METHOD 02/13/2025 10:45 AM [facility] RBC 3.90 3.80 - 4.80 M/[facility] LAB HEMETOLOGY METHOD 02/13/2025 10:45 AM T [facility] Hemoglobin 10.8(L) 11.5 - 16.0 g/dL LAB HEMETOLOGY METHOD 02/13/2025 10:45 AM [facility] Hematocrit 34.3(L) 35.0 - 47.0 % LAB HEMETOLOGY METHOD 02/13/2025 10:45 AM EDT [facility] MCV 88.9 79.0 - 98.0 FL LAB HEMETOLOGY METHOD 02/13/2025 10:45 AM T [facility] MCH 28.0 27.0 - 32.0 pcg LAB HEMETOLOGY METHOD 02/13/2025 10:45 AM [facility] MCHC 31.5(L) 32.0 - 37.0 g/dL LAB HEMETOLOGY METHOD 02/13/2025 10:45 AM EDT [facility] RDW 13.5 11.0 - 15.0 [...] Final Resu lt [facility] [address] [place] [address], * (ABNORMAL) Comprehensive metabolic panel (02/13/2025 8:31 AM EDT) Sodium 136 133 - 145 mmol/L LAB CHEMISTRY METHOD 02/13/2025 11:10 AM EDT [facility] Potassium 4.1 3.5 - 5.5 mmol/L LAB CHEMISTRY METHOD 02/13/2025 11:10 AM EDT [facility] Chloride 102 96 - 110 mmol/L LAB CHEMISTRY METHOD 02/13/2025 11:10 AM EDT [facility] CO2 26 21 - 32 [...] Final Resu lt [facility] [address] [place] [address], documented in this encounter Visit Diagnoses Diagnosis Type 2 diabetes mellitus without complications (CMS/HCC V24, CMS/HCC V28) Magnesium deficiency Disorders of magnesium metabolism documented in this encounter Care Teams Chief Transfer And Pumphouse Operator Relationship Specialty Start Date End Date Fawad Ortega MD [address] [place] [address] PCP - General Internal Medicine 01/30/25 documented as of this encounter
--- OUTSIDE RECORDS SUMMARY | 2025-05-05 14:07 | XMS_ITS | Encounter Summary ---
Author Organization [facility] Address [address] [place] [address] Phone Care Team Providers Care Cherry Grower Name Role Phone Mitul Garcia MERCHANDISING MANAGER Primary Care Provider [phone] Encounter Details Date Type Department Care Team ([facility] Contact Info) Description 11/27/2022 Documentation Only [facility] [address] [place] [address] Italia Rivers [address] [place] [address] Social History Tobacco Use Types Packs/Day Years Used Date Smoking Tobacco: Former Cigarettes Q uit: 07/20/1963 Comments Unknown Sex and Gender Information Value Date Recorded Sex Assigned at Not on file Legal Sex Female 4:34 PM EST Gender Identity Not on file Sexual Orientation Not on file documented as of this encounter Plan of Treatment Upcoming Encounters Date Type Department Care Team ([facility] Contact Info) Description 06/06/2025 3:20 PM EST Office Visit [facility] [address] [place] [address] Sarbjit Palumbo MD [address] [place] [address] [place] [place]ías [place] [phone] documented as of this encounter Visit Diagnoses Not on filedocumented in this encounter Care Teams Cherry Grower Relationship Specialty Start Date End Date Mitul Garcia NP [address] [facility] [place] [address] PCP - General 05/24/19 documented as of this encounter
--- OUTSIDE RECORDS SUMMARY | 2025-05-05 14:07 | XMS_ITS | Clinical Summary ---
Author Organization [facility] [place], Address [address] [place] [address] [place] [address] Phone Care Team Providers Care Bread Slicer Machine Name Role Phone Mitul Garcia NP Primary Care Provider [phone] Allergies Active Allergy Reactions Criticality Noted Date [...] hours 180 tablet 3 09/18/2023 Active Creon 79785-[address]169 units capsule 2 capsules with meals and [...] Hypermagnesemia Hyperlipidemia Hyperkalemia Gitelman syndrome Essential hypertension Immunizations Immunization Administration Dates Next Due Influenza [...] Care Team (Late st Contact Info) Description 06/06/2025 3:20 PM EST Office Visit [facility] [place], [address] [place] [address] Sarbjit Palumbo MD [address] [facility] [place] [phone] Health Maintenance Due Date Last Done Comments [...] PM EDT) Hemoglobin A1C 6.3(H) (4.0-5.6) % [facility] Comment: MONITORING: In known diabetic patients, hemoglobin A1c targets should be discussed with health care provider. DIAGNOSTIC USE: The [place] [employer] (ADA) and the World Health [...] Supplement 1 Testing performed or reported by [facility], a Service of [facility], [address] [place] [address] Zach Engle MD, Franchise Sales Director [facility]# [id number] Blood specimen (specimen) Venous blood / Unknown 05/12/2023 12:23 PM EDT 05/12/2023 12:26 PM EDT us Balaji Nascimento MD LAB BLOOD ORDERABLES Final Res ult [facility] from Last 3 Months or Most Recently Relevant to Health Maintenance Insurance Medicare [facility] Medicare [facility] Medicaid [place] Care Teams Bread Slicer Machine Relationship Specialty Start Date End Date Mitul Garcia NP [address] [place] [address] PCP - General 05/24/19
--- OUTSIDE RECORDS SUMMARY | 2025-05-05 14:07 | XMS_ITS | Encounter Summary ---
Author Organization [facility] [place], Address [address] [place] [address] Phone Care Team Providers Care Solar Sales Energy Advisor Name Role Phone Mitul Garcia SURVEILLANCE DUAL RATE OFFICER Primary Care Provider [phone] Encounter Details Date Type Department Care Team ([facility] Contact Info) Description 11/27/2023 Orders Only [facility] [address] [place] [address] Sarbjit Palumbo MD [address] [place] [address] [place] [address] Gitelman syndrome Social History Tobacco [...] Upcoming Encounters Date Type Department Care Team ([facility] Contact Info) Description 06/06/2025 3:20 PM EST Office Visit [facility] [address] [place] [address] Sarbjit Palumbo MD [address] [place] [address] [place] [address] documented as of this encounter Visit Diagnoses Diagnosis Gitelman syndrome documented in this encounter Care Teams Solar Sales Energy Advisor Relationship Specialty Start Date End Date Mitul Garcia NP [address] [place] [address] PCP - General 05/24/19 documented as of this encounter
--- OUTSIDE RECORDS SUMMARY | 2025-05-05 14:07 | XMS_ITS | Encounter Summary ---
Author Organization [facility] Address [address] [place] [address] Phone Care Team Providers Care Type Proof Reproducer Name Role Phone Mitul Garcia CONVERTING OPERATOR Primary Care Provider [phone] Encounter Details Date Type Department Care Team ([facility] Contact Info) Description 12/25/2022 Documentation Only [facility] [address] [place] [address] Italia Rivers [address] [place] [address] Social History Tobacco Use Types Packs/Day [...] [facility] Contact Info) Description 06/06/2025 3:20 PM EST Office Visit [facility] [address] [place] [address] Sarbjit Palumbo MD [address] [place] [address] [place] [place] [phone] documented as of this encounter Visit Diagnoses Not on filedocumented in this encounter Care Teams Type Proof Reproducer Relationship Specialty Start Date End Date Mitul Garcia NP [address] [place] [address] PCP - General 05/24/19 documented as of this encounter
--- OUTSIDE RECORDS SUMMARY | 2025-05-05 14:07 | XMS_ITS | Encounter Summary ---
Author Organization [facility] [place], Address [address] [place] [address] Phone Care Team Providers Care Blender Helper Name Role Phone Mitul Garcia PRESS MACHINE OPERATOR Primary Care Provider [phone] Encounter Details Date Type Department Care Team ([facility] Contact Info) Description 08/05/2024 Orders Only [facility] [address] [place] [address] Sarbjit Palumbo MD [address] [place] [address] [place] [place] [address] Gitelman syndrome Social History Tobacco [...] Upcoming Encounters Date Type Department Care Team ([facility] Contact Info) Description 06/06/2025 3:20 PM EST Office Visit [facility] [address] [place] [address] Sarbjit Palumbo MD [address] [place] [address] [place] [address] documented as of this encounter Visit Diagnoses Diagnosis Gitelman syndrome documented in this encounter Care Teams Blender Helper Relationship Specialty Start Date End Date Mitul Garcia NP [address] [place] [address] PCP - General 05/24/19 documented as of this encounter
--- OUTSIDE RECORDS SUMMARY | 2025-05-05 14:07 | XMS_ITS | Encounter Summary ---
Author Organization [facility] [place], Address [address] [place] [address] Phone Care Team Providers Care Hand Wrapper Operator Name Role Phone Mitul Garcia NP Primary Care Provider [phone] Encounter Details Date Type Department Care Team (Late Contact Info) Description 01/08/2024 Documentation Only [facility] [address] [place] [address] [place] [address] [place] [address] Social History Tobacco Use Types Packs/Day [...] Encounters Date Type Department Care Team ([facility] Contact Info) Description 06/06/2025 3:20 PM EST Office Visit [facility] [address] [place] [address] Sarbjit Palumbo MD [address] [facility] [place] [place] [place] [phone] documented as of this encounter Visit Diagnoses Not on filedocumented in this encounter Care Teams Hand Wrapper Operator Relationship Specialty Start Date End Date Mitul Garcia NP [address] [place] [address] PCP - General 05/24/19 documented as of this encounter
--- OUTSIDE RECORDS SUMMARY | 2025-05-05 14:07 | XMS_ITS | Encounter Summary ---
Author Organization [facility] [place], Address [address] [place] [address] Phone Care Team Providers Care Interior Design Program Chair Name Role Phone Mitul Garcia CAMPAIGN MARKETING SPECIALIST Primary Care Provider [phone] Encounter Details Date Type Department Care Team ([facility] Contact Info) Description 05/13/2024 Orders Only [facility] [address] [place] [address] Sarbjit Palumbo MD [address] [place] [address] [place]ías [place] [address] Gitelman syndrome Social History Tobacco [...] ([facility] Contact Info) Description 06/06/2025 3:20 PM EST Office Visit [facility] [address] [address] Sarbjit Palumbo MD [address] [place] [address] [place]ías [place] [address] documented as of this encounter Visit Diagnoses Diagnosis Gitelman syndrome documented in this encounter Care Teams Interior Design Program Chair Relationship Specialty Start Date End Date Mitul Garcia NP [address] [place] [address] PCP - General 05/24/19 documented as of this encounter
--- OUTSIDE RECORDS SUMMARY | 2025-05-05 14:07 | XMS_ITS | Encounter Summary ---
Author Organization [facility] Address [address] [place] [address] Care Team Providers Care Fish Farmer Name Role Phone Fawad Ortega MD Primary Care Provider [phone] Encounter Details Date Type Department Care Team (Latest Contact Info) Description 02/04/2025 Lab Requisition [facility] - Main Lab [address] [facility] [place] [address] Fawad Ortega MD [address] [place] [address] Type 2 diabetes mellitus without [...] Complete blood count (02/06/2025 5:27 AM EDT) [facility] WBC 8.2 4.8 - 10.8 K/mcL LAB HEMETOLOGY METHOD 02/06/2025 10:23 AM [facility] RBC 3.10(L) 3.80 - 4.80 M/mcL LAB HEMETOLOGY METHOD 02/06/2025 10:23 AM [facility] Hemoglobin 9.3(L) 11.5 - 16.0 g/dL LAB HEMETOLOGY METHOD 02/06/2025 10:23 AM [facility] Hematocrit 28.0(L) 35.0 - 47.0 % LAB HEMETOLOGY METHOD 02/06/2025 10:23 AM [facility] MCV 89.2 79.0 - 98.0 FL LAB HEMETOLOGY METHOD 02/06/2025 10:23 AM [facility] MCH 29.6 27.0 - 32.0 pcg LAB HEMETOLOGY METHOD 02/06/2025 10:23 AM [facility] MCHC 33.2 32.0 - 37.0 g/dL LAB HEMETOLOGY METHOD 02/06/2025 10:23 AM [facility] RDW 13.6 11.0 - 15.0 % LAB HEMETOLOGY METHOD 02/06/2025 10:23 AM [facility] Platelets 398 130 - 400 K/mcL LAB HEMETOLOGY METHOD 02/06/2025 10:23 AM [facility] MPV 10.6 7.0 - 11.0 FL LAB HEMETOLOGY METHOD 02/06/2025 10:23 AM [facility] NRBC 0.0 <1.0 % LAB HEMETOLOGY METHOD 02/06/2025 10:23 AM [facility] NRBC Absolute 0.00 <0.10 K/mcL LAB HEMETOLOGY METHOD 02/06/2025 10:23 AM EDT [facility] Blood Venous blood specimen / Unknown Venipuncture / Unknown 02/06/2025 5:27 AM EDT 02/06/2025 9:53 AM EDT us Fawad Ortega MD LAB BLOOD ORDERABLES Final Resu lt Performing Organization Address [facility]/ZIP Co de Phone Number [facility] [address] [place] [address], [place] [phone] * Magnesium (02/06/2025 5:24 AM EDT) [facility] Magnesium 1.9 1.9 - 2.6 mg/dL LAB CHEMISTRY METHOD 02/06/2025 10:46 AM EDT [facility] Blood Venous blood specimen / Unknown Venipuncture / Unknown 02/06/2025 5:24 AM EDT 02/06/2025 10:03 AM EDT us Fawad Ortega MD LAB BLOOD ORDERABLES Final Resu lt Performing Organization Address [facility] Co de Phone Number [facility] [address] [place] [address], [place] [phone] * (ABNORMAL) Comprehensive metabolic panel (02/06/2025 5:24 AM EDT) [facility] Sodium 140 133 - 145 mmol/L LAB CHEMISTRY METHOD 02/06/2025 10:46 AM EDT [facility] Potassium 4.4 3.5 - 5.5 mmol/L LAB CHEMISTRY METHOD 02/06/2025 10:46 AM EDT [facility] Chloride 107 96 - 110 mmol/L LAB CHEMISTRY METHOD 02/06/2025 10:46 AM EDT [facility] CO2 25 21 - 32 mmol/L LAB CHEMISTRY METHOD 02/06/2025 10:46 AM EDT [facility] Anion Gap 8 3 - 11 LAB CHEMISTRY METHOD 02/06/2025 10:46 AM [facility] Glucose 90 70 - 100 mg/dL LAB CHEMISTRY METHOD 02/06/2025 10:46 AM [facility] BUN 18 5 - 25 mg/dL LAB CHEMISTRY METHOD 02/06/2025 10:46 AM [facility] Creatinine 1.44(H) 0.50 - 1.10 mg/dL LAB CHEMISTRY METHOD 02/06/2025 10:46 AM [facility] eGFR 37(L) >=60 mL/min/1. 73m2 LAB CHEMISTRY METHOD 02/06/2025 10:46 AM [facility] Comment:Calculation based on the Chronic Kidney Disease Epidemiology Collaboration (CKD-EPI) equation refit without adjustment for race. BUN/Creatinine Ratio 12.5 LAB CHEMISTRY METHOD 02/06/2025 10:46 AM [facility] Calcium 8.3(L) 8.5 - 10.5 mg/dL LAB CHEMISTRY METHOD 02/06/2025 10:46 AM [facility] AST (SGOT) 13 10 - 42 unit/L LAB CHEMISTRY METHOD 02/06/2025 10:46 AM [facility] ALT (SGPT) 11 10 - 60 unit/L LAB CHEMISTRY METHOD 02/06/2025 10:46 AM [facility] Alkaline Phosphatase 46 42 - 121 unit/L LAB CHEMISTRY METHOD 02/06/2025 10:46 AM [facility] Total Protein 6.2 6.0 - 8.0 g/dL LAB CHEMISTRY METHOD 02/06/2025 10:46 AM [facility] Albumin 3.0(L) 3.2 - 5.0 g/dL LAB CHEMISTRY METHOD 02/06/2025 10:46 AM [facility] Total Bilirubin 0.2 0.0 - 1.4 mg/dL LAB CHEMISTRY METHOD 02/06/2025 10:46 AM EDT [facility] Blood Venous blood specimen / Unknown Venipuncture / Unknown 02/06/2025 5:24 AM EDT 02/06/2025 10:03 AM EDT Fawad Ortega MD LAB BLOOD ORDERABLES Final Resu lt [facility] [address] [place] [address], documented in this encounter Visit Diagnoses Diagnosis Type 2 diabetes mellitus without complications (CMS/HCC V24, CMS/HCC V28) Magnesium deficiency Disorders of magnesium metabolism documented in this encounter Care Teams Fish Farmer Relationship Specialty Start Date End Date Fawad Ortega MD [address] [place] [address] PCP - General Internal Medicine 01/30/25 documented as of this encounter
--- OUTSIDE RECORDS SUMMARY | 2025-05-05 14:07 | XMS_ITS | Encounter Summary ---
Author Organization [facility], Address [address] [place] [address] Phone Care Team Providers Care Assignment Clerk Name Role Phone Mitul Garcia NP Primary Care Provider [phone] Encounter Details Date Type Department Care Team (Late Contact Info) Description 09/16/2023 Documentation Only [facility] [address] [place] [address] [place] [address] [place] [address] Social History Tobacco Use Types Packs/Day [...] Encounters Date Type Department Care Team ([facility] Contact Info) Description 06/06/2025 3:20 PM EST Office Visit [facility] [address] [place] [address] Sarbjit Palumbo MD [address] El[address] [place] [phone] documented as of this encounter Visit Diagnoses Not on filedocumented in this encounter Care Teams Assignment Clerk Relationship Specialty Start Date End Date Mitul Garcia NP [address] [place] [address] PCP - General 05/24/19 documented as of this encounter
--- OUTSIDE RECORDS SUMMARY | 2025-05-05 14:07 | XMS_ITS | Encounter Summary ---
Author Organization [facility] Address [address] [place] [address] Phone Care Team Providers Care Window Covering Sales Consultant Name Role Phone Mitul Garcia CMO & PRESIDENT Primary Care Provider [phone] Encounter Details Date Type Department Care Team ([facility] Contact Info) Description 12/25/2022 Documentation Only [facility] [address] [place] [address] [place] [address] [place] [address] Social History Tobacco Use Types Packs/Day [...] Care Team ([facility] Contact Info) Description 06/06/2025 3:20 PM EST Office Visit [facility] [address] [place] [address] Sarbjit Palumbo MD [address] [place] [address] [place] [place] [phone] documented as of this encounter Visit Diagnoses Not on filedocumented in this encounter Care Teams Window Covering Sales Consultant Relationship Specialty Start Date End Date Mitul Garcia NP [address] [facility] [place] [address] PCP - General 05/24/19 documented as of this encounter
== END 2025-05-05 12:17 | disposition home or self-care (01) ==
LOC: HO.HUSH 11:19
PROVIDERS: PCP Nurse Practitioner Family; Visit Provider Urology
DX: N30.80 Other cystitis without hematuria (principal); N39.0 Urinary tract infection, site not specified
CPT/HCPCS: 99214; G2211

== ENCOUNTER → 2025-05-05 11:18 | Outpatient (BNVA) | payer MEDICARE, BC, OTHER, MEDICAID, SELFPAY | PROVIDERS: PCP Nurse Practitioner Family; Visit Provider Urology | DX: N30.80 Other cystitis without hematuria (principal) | CPT/HCPCS: 99212 ==

== ENCOUNTER 2025-06-01 15:23 | Outpatient (AMB) | payer MEDICARE, BC, OTHER, MEDICAID, SELFPAY ==
--- OUTSIDE RECORDS SUMMARY | 2024-06-10 06:15 | XMS_ITS ---
Author Organization [facility] Address [address] [facility] [place] [address] Care Team Providers Care Patient Case Manager Name Role Phone Mitul Mccrary Primary Care Provider Unav Quyen Hayden [phone] Encounters Encounter Location Date Provider Diagnosis [address] [address] 06/10/2024 Quyen De Leon Plan Of Treatment No Information Progress Notes * Wanda THOMPSON MDOB: 5 (79 yo F)Acc No.[id number]:06/10/2024 Progress Notes Patient: Ashwin Wanda KANG Provider: Tito De Leon DPM :1945 A ge:78 Y S ex:Female Date:06/10/2024 Address:[address] [place], [place] [id number] Pcp:MARQUISE Morin Subjective: * Chief Complaints: * * Medical History: Objective: * Vitals: Assessment: Plan: * Treatment: * Images: * The named appointment provid er may or may not be the originator of this progress note, and it is not deemed complete until electronically signed by the appointment provider. Sign off status: Pending * Provider: Tito De Leon DPM Date: 08/10/2023 Generated for Wilfredo serrato/Taj/eTransmitting on: 08/01/2024 06:30 PM EST
--- OUTSIDE RECORDS SUMMARY | 2024-11-28 10:30 | XMS_ITS ---
Author Organization [facility] [place] Address [address] [place] [address] Care Team Providers Care Open Die Inspector Name Role Phone Mitul Mccrary Primary Care Provider Unav Quyen Hayden [phone] Encounters Encounter Location Date Provider Diagnosis [address] [address] 11/28/2024 Quyen De Leon Plan Of Treatment No Information Progress Notes * Wanda THOMPSON MDOB: (79 yo F)Acc No.[id number]:11/28/2024 Progress Note Patient: Ashwin CAROLYNDARWIN Wanda Pacheco Provider: Tito De Leon DPM :1945 A ge:79 Y S ex:Female Date:11/28/2024 Address:[address] [place], [place] [address] Pcp:MARQUISE Morin Subjective: * Chief Complaints: * * Medical History: Objective: * Vitals: Assessment: Plan: * Treatment: * Images: * The named appointment provid er may or may not be the originator of this progress note, and it is not deemed complete until electronically signed by the appointment provider. Sign off status: Pending * Provider: Tito De Leon DPM Date: 0 11/28/2024 Generated for Wilfredo ng/Fasilviag/eTransmitting on: 08/01/2024 06:30 PM EST
[2025-06-01 15:45] VITALS: BP 128/74; PULSE 92; RESP 16; O2SAT 95
--- NOTE | 2025-06-01 15:45 | A.OFFPC_ITS ---
Vital Signs 06/01/25 15:45 Height 5 ft 1 in BMI Reason not done Patient refused/unable BP 128/74 Blood Pressure Location Lt brachial Position Sitting Respiration 16 Pulse 92 Pulse Source Pulse Oximeter Pulse Oximetry (%) 95 Oxygen Delivery Method Room Air Intake Visit Reasons: 4 months f/up - see comments Consumer Insights Specialist Required: No Accompanied by: Self / Same As Patient Allergies adhesive tape Allergy (Severe, Verified 06/01/25 15:47) Blister from adhesive bandages and rash from plastic tape phenytoin (From Dilantin) Allergy (Severe, Verified 06/01/25 15:47) Rash sulfamethoxazole (From BACTRIM) Allergy (Unknown, Verified 06/01/25 15:47) UNKNOWN trimethoprim (From BACTRIM) Allergy (Unknown, Verified 06/01/25 15:47) UNKNOWN Tobacco use date assessed: 06/01/25 Fall risk assessment: No Falls in past year Last assessed Fall Risk: 06/01/25 Dental Screening Dental Screen Date: 06/01/25 Did you have a dental visit in the last 12 months?: Yes Did you have a dental problem in the last 6 months where you did not have access to dental care?: No Was dental information given to patient?: Patient has dentist HPI 4 months f/up - see comments HPI Details Chief Complaint The patient is here for a follow-up visit for diabetes management. History of Present Illness The patient is an 79-year-old female presenting for a follow-up visit for diabetes. She reports that her diet has been off recently. The patient's medical history is significant for morbid obesity. She is also followed by a timber spotter on a regular basis. Social History - Diet: The patient reports that her t has recently been off. Health Maintenance - The patient sees a timber spotter on a r egular basis. - Fasting labs have been ordered for fut ure evaluation. Review of Systems - General: Reports doing well overall. - Nutritional: Reports her diet has been off. -denies any fevers, chills, does have n europathy Physical Exam General: Cooperative, healthy appearing, comfortable, no acute distress and well developed, morbidly obese, in a wheelchair Orientation: Patient oriented x3 Limitations: No limitations Head: Normal to inspection Ears: Hearing grossly normal bilaterally Nose: Normal external nose present Face and sinus: Normal facial exam Eyes: Appearance normal, both eyes and all related structures Neck: Normal visual inspection and Yes full ROM Respiratory: Normal respiratory effort and able to speak in complete sentences. Clear to auscultation bilaterally except very faint crackles to bilaterally bases Cardiovascular: Regular rate and rhythm. Normal S1 and S2 GI: Normal to inspection. Soft to palpation and nontender Skin: No rashes or lesions noted Neuro: Patient oriented x3 Extremities: Hammer toes present. Slight lack of sensation , specifically the plantar aspect of the feet with the monofilament test. Normal to inspection Results - Labs: Hemoglobin A1c is 7.4. Plan 1. Diabetes Mellitus The patient's hemoglobin A1c is 7.4. She reports that her diet has been off, and in light of this, no changes to her current medication regimen will be made at this time. Fasting labs have been ordered for further monitoring. 2. Morbid Obesity The patient is morbidly obese but is reported to be doing well overall. Given her report of recent dietary indiscretion, counseling on diet was implicitly provided. 3. Nephrology Management The patient will continue to see her timber spotter on a regular basis for ongoing management. Discussion Notes I discussed with the patient her recent hemoglobin A1c result of 7.4. We reviewed that her diet has been off, and I informed her that no changes will be made to her diabetes medication at this time. I have ordered fasting labs for her to complete in the near future. Patient Instructions - Continue taking your current medicatio ns as prescribed. We are not making any changes today. - Please go to the lab to have the fasti ng blood tests done. - Continue your regular follow-up appoin tments with your kidney specialist (timber spotter). [facility] Medical History Acute kidney injury Sepsis Weakness SOB (shortness of breath) Hyperhidrosis Cataract AVN (avascular necrosis of bone) Type 2 diabetes mellitus with diabetic polyneuropathy Hiatal hernia IBS (irritable bowel syndrome) GERD (gastroesophageal reflux disease) On beta jody at home Restrictive lung disease Obesity (BMI 30-39.9) GOPAL on CPAP Anemia B12 deficiency Vitamin D deficiency Breast pain, left Chronic kidney disease, stage 3 Decreased pedal pulses Diabetes mellitus with complication Retinopathy Celiac disease Right rotator cuff tear Osteoarthritis Seizures Gout Neuropathy Gitelman disease Essential hypertension Age-related osteoporosis without current pathological fracture Type 2 diabetes mellitus with other diabetic kidney complication Proteinuria Dyslipidemia Type 2 diabetes mellitus with chronic kidney disease Adult BMI 30.0-30.9 kg/sq m Surgical History History of esophagogastroduodenoscopy (EGD) S/P cardiac catheterization History of carpal tunnel surgery of right wrist History of back surgery Hx of colonoscopy History of total left knee replacement History of left shoulder replacement History of revision of total replacement of right hip joint Hx of fracture of fibula Family History Father No problems noted. Mother Cancer Diabetes Daughter Substance use disorder Mental health disorder Social History Household Members: Spouse and Children Household Members Other:: 2 daughter and their children Housing: House Are you a primary lawn care professional to a significant other at home: No Do you presently have visiting nurse or other home services: No Alcohol intake: unknown Patient Tobacco Use Status: Never used Tobacco Tobacco use type: Cigarette Years Smoked: 1963 e-Cigarette/Vaping Use: Never Used Second Hand Smoke Exposure: Yes Advance Directives Date on File: 08/26/22 service: No Current occupational status: retired Cognitive needs: No Hearing needs: No Vision needs: Yes Questionnaire PHQ-9 Over the last 2 weeks, how often have you been bothered by any of the following problems? 89608 - PHQ-9 Billing: Patient declined-do not bill Source: Developed by Drs. Stephen Porter, Susi Franco, Fredi Hewitt and colleagues, with an educational salina from [employer]. Thrive Questionnaire Date Thrive assessed: 01/24/25 GUY-7 AMB Questionnaire GUY-7 Date GUY - 7 assessed: 06/01/25 Feeling nervous, anxious, or on edge: 0 = Not at all Not being able to stop or control worryin = Not at all Worrying too much about different things: 0 = Not at all Trouble relaxin = Not at all Being so restless that it is hard to sit still: 0 = Not at all Becoming easily annoyed or irritable: 0 = Not at all Feeling afraid as if something awful might happen: 0 = Not at all Total GUY-7 score (0-4 normal; 5-9 mild; 10-14 moderate; 15-21 severe): 0 Source: Developed by Drs. Stephen Porter, Susi Franco, Fredi Hewitt and colleagues, with an educational salina from [employer]. GUY-7 Assessment Billing GUY-7 Assessment Tool: GUY-7 Assessment 28830 Physical exam (Primary Care) Vital Signs: Last Vital Signs Pulse 92 06/01/25 15:45 Resp 16 06/01/25 15:45 BP 128/74 06/01/25 15:45 Pulse Ox 95 06/01/25 15:45 Oxygen Delivery Method Room Air 06/01/25 15:45 Tobacco/Smoking Status: Tobacco use Status Tobacco use date assessed 06/01/25 06/01/25 15:49 Patient Tobacco Use Status Never used Tobacco 06/01/25 15:46 Tobacco use type Cigarette 06/01/25 15:46 e-Cigarette/Vaping Use Never Used 06/01/25 15:46 Thrive Assessment: Date of Thrive Assessment Date Thrive assessed 01/24/25 06/01/25 15:46 Results AMB Hemoglobin A1c AMB Hemoglobin A1c 7.4 % Last Edit by Eleonora Bertrand MA on 06/01/25 16:03 Results Reviewed Results Reviewed: Laboratory Last Values Hgb A1c (Clinic) 7.4 % (4.0-6.0) H 06/01/25 15:57 Coding Level of Care Code Est Pt Level 3 (12301) Diagnoses Type 2 diabetes mellitus with chronic kidney disease E11. Additional Codes GUY-7 Assessment Billing - GUY-7 Assessment Tool: GUY-7 Assessment 41457 ([id number]) Assessment & Plan Assessment & Plan (1) Type 2 diabetes mellitus with chronic kidney disease: Code(s): E11.22 - Type 2 diabetes mellitus with diabetic chronic kidney disease Category: Medical Plan . Orders: Orders AMB Hemoglobin A1c Today E11.22 - Type 2 diabetes mellitus with diabetic chronic kidney disease Complete Blood Count Auto Diff Today E11.22 - Type 2 diabetes mellitus with diabetic chronic kidney disease Comprehensive [place]. Panel Fast Today E11.22 - Type 2 diabetes mellitus with diabetic chronic kidney disease TSH reflex Free T4 Today E11.22 - Type 2 diabetes mellitus with diabetic chronic kidney disease UA CC w/rflx Micro + Cult Today E11.22 - Type 2 diabetes mellitus with diabetic chronic kidney disease Lipid Panel Today E11.22 - Type 2 diabetes mellitus with diabetic chronic kidney disease
--- OUTSIDE RECORDS SUMMARY | 2025-06-01 18:30 | XMS_ITS | Encounter Summary ---
Author Organization [facility] Address [address] [place] [address] Care Team Providers Care Public Relations Account Supervisor Name Role Phone Fawad Ortega MD Primary Care Provider [phone] Encounter Details Date Type Department Care Team (Latest Contact Info) Description 02/24/2025 Lab Requisition [facility] - Main Lab [address] [facility] [place] [address] Fawad Ortega MD [address] [place] [address] Type 2 diabetes mellitus without [...] metabolism documented in this encounter Care Teams Public Relations Account Supervisor Relationship Specialty Start Date End Date Fawad Ortega MD [address] [place] [address] PCP - General Internal Medicine 01/30/25 documented as of this encounter
--- OUTSIDE RECORDS SUMMARY | 2025-06-01 18:30 | XMS_ITS | Patient Health Record ---
Author Organization [facility] Address [address] [place] [address] Care Team Providers Care Hospital Director Name Role Phone LYNN GARCIA Primary Care [...] date:01/06/2025 03:54:32 PM Interpretation: Performing Lab: Notes/Report: [facility] [address] [place] [address] Fluoroscopy Report Signed Patient: Ranjan Thompson MR#: [id number] 57 : 1945 Acct:[id number] Age/Sex: 79 / F ADM Date: 01/06/25 Loc: [facility] Attending Dr: Rc Kathleen MD Ordering Physician: Rc Kathleen MD Date of Service: 01/06/25 Procedure(s): FL upper GI w air Accession Number(s): [id number] cc: Rc Kathleen MD; Lynn Garcia [facility] EXAMINATION: XR FLUOROSCOPY UPPER GI WITH [...] OV> 01/06/25 1002 DD/ TD/TT: 01/06/25 0843 Blister Packing Machine Tender: SAVAGE Reason For Referral No Information Medications Medication SIG (Take, Route, Frequency, Duration) Notes Start Date End Date Status [id number] Active Creon 25647-22098 UNIT 2 capsules with m eals and [...] Status W/U Status Risk Notes Problem Hypertension (91170477) Hypertension (I10) Active confirmed Problem Abnormal celiac antibody panel (R89.4) Active confirmed Problem Gastroesophageal reflux disease (789226490) GERD (gastroesophageal reflux disease) (K21.9) Active confirmed Problem Diarrhea (01173642) Diarrhea, unspecified type (R19.7) Active confirmed Problem Irritable bowel syndrome (22102045) Irritable bowel syndrome, unspecified type (K58.9) Active confirmed Problem Exocrine pancreatic insufficiency (29355282) Exocrine pancreatic insufficiency (K86.81) Active confirmed Problem Irritable bowel syndrome (92605312) Irritable bowel syndrome with both constipation and diarrhea (K58.2) Active confirmed Problem Colon cancer screening declined (08348972836712) Colon cancer screening declined (Z53.20) Active confirmed Problem Clostridioides difficile infection (724788352) 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 Vital Signs Temperature 97.1 degrees Fahrenheit 11/16/2024 Blood pressure diastolic 01 mm Hg 11/16/2024 Height 63 in 11/16/2024 Blood pressure systolic 001 mm Hg 11/16/2024 Weight 188 lbs 11/16/2024 BMI 33.3 kg/m2 11/16/2024 Encounters Encounter Location Date Provider Diagnosis [facility] [address] [place] [phone] 08/11/2024 Rc Kathleen Jr Gastroesophageal reflux disease K21.9 ; Exocrine pancreatic insufficiency K86.81 and Irritable bowel syndrome, unspecified type K58.9 [facility] [address] [place] [phone] 11/16/2024 Rc Kathleen Jr Hiatal hernia K44.9 ; GERD (gastroesophageal reflux disease) K21.9 and Exocrine pancreatic insufficiency K86.81 [facility] [address] [place] [address] 01/06/2025 Rc Kathleen Jr Assessments Encounter Date [...] Date MEDICARE OF [place] [address] [place] [address] [phone] [id number] PRECL, RANJAN Self - patient is the insured [facility] [address] [place], [place] [id number] [phone] [id number] PRECL, RANJAN Self - patient is the insured [employer] [address] [place] [address] [phone] [id number] [facility], RANJAN Self - patient is the insured [...]
--- OUTSIDE RECORDS SUMMARY | 2025-06-01 18:31 | XMS_ITS | Encounter Summary ---
Author Organization [facility] Address [address] [place] [address] Care Team Providers Care Grocery Associate Name Role Phone Fawad Ortega MD Primary Care Provider [phone] Encounter Details Date Type Department Care Team (Latest Contact Info) Description 02/12/2025 Lab Requisition [facility] - Main Lab [address] [facility] [place] [address] Fawad Ortega MD [address] [place] [address] Type 2 diabetes mellitus without [...] (ABNORMAL) Magnesium (02/13/2025 8:31 AM EDT) Pathologist [facility] Magnesium 1.7(L) 1.9 - 2.6 mg/dL LAB CHEMISTRY METHOD 02/13/2025 11:10 AM EDT [facility] Blood Venous blood specimen / Unknown Venipuncture / Unknown 02/13/2025 8:31 AM EDT 02/13/2025 10:15 AM EDT us Fawad Ortega MD LAB BLOOD ORDERABLES Final Resu lt [facility] [address] [place] [address], * (ABNORMAL) Complete blood count (02/13/2025 8:31 AM EDT) [facility] WBC 9.6 4.8 - 10.8 K/mcL LAB HEMETOLOGY METHOD 02/13/2025 10:45 AM [facility] RBC 3.90 3.80 - 4.80 M/[facility] LAB HEMETOLOGY METHOD 02/13/2025 10:45 AM T [facility] Hemoglobin 10.8(L) 11.5 - 16.0 g/dL LAB HEMETOLOGY METHOD 02/13/2025 10:45 AM [facility] Hematocrit 34.3(L) 35.0 - 47.0 % LAB HEMETOLOGY METHOD 02/13/2025 10:45 AM EDT [facility] MCV 88.9 79.0 - 98.0 FL LAB HEMETOLOGY METHOD 02/13/2025 10:45 AM T [facility] MCH 28.0 27.0 - 32.0 pcg LAB HEMETOLOGY METHOD 02/13/2025 10:45 AM [facility] MCHC 31.5(L) 32.0 - 37.0 g/dL LAB HEMETOLOGY METHOD 02/13/2025 10:45 AM EDT [facility] RDW 13.5 11.0 - 15.0 % LAB HEMETOLOGY METHOD 02/13/2025 10:45 AM EDT [facility] Platelets 406(H) 130 - 400 K/mcL LAB HEMETOLOGY METHOD 02/13/2025 10:45 AM EDT [facility] MPV 10.7 7.0 - 11.0 FL LAB HEMETOLOGY METHOD 02/13/2025 10:45 AM EDT [facility] NRBC 0.0 <1.0 % LAB HEMETOLOGY METHOD 02/13/2025 10:45 AM EDT [facility] NRBC Absolute 0.00 <0.10 K/mcL LAB HEMETOLOGY METHOD 02/13/2025 10:45 AM EDT [facility] Blood Venous blood specimen / Unknown Venipuncture / Unknown 02/13/2025 8:31 AM EDT 02/13/2025 10:20 AM EDT us Fawad Ortega MD LAB BLOOD ORDERABLES Final Resu lt [facility] [address] [place] [address], * (ABNORMAL) Comprehensive metabolic panel (02/13/2025 8:31 AM EDT) Sodium 136 133 - 145 mmol/L LAB CHEMISTRY METHOD 02/13/2025 11:10 AM EDT [facility] Potassium 4.1 3.5 - 5.5 mmol/L LAB CHEMISTRY METHOD 02/13/2025 11:10 AM EDT [facility] Chloride 102 96 - 110 mmol/L LAB CHEMISTRY METHOD 02/13/2025 11:10 AM EDT [facility] CO2 26 21 - 32 mmol/L LAB CHEMISTRY METHOD 02/13/2025 11:10 AM [facility] Anion Gap 8 3 - 11 LAB CHEMISTRY METHOD 02/13/2025 11:10 AM [facility] Glucose 128(H) 70 - 100 mg/dL LAB CHEMISTRY METHOD 02/13/2025 11:10 AM [facility] BUN 23 5 - 25 mg/dL LAB CHEMISTRY METHOD 02/13/2025 11:10 AM [facility] Creatinine 1.56(H) 0.50 - 1.10 mg/dL LAB CHEMISTRY METHOD 02/13/2025 11:10 AM [facility] eGFR 33(L) >=60 mL/min/1. 73m2 LAB CHEMISTRY METHOD 02/13/2025 11:10 AM [facility] Comment:Calculation based on the Chronic Kidney Disease Epidemiology Collaboration (CKD-EPI) equation refit without adjustment for race. BUN/Creatinine Ratio 14.7 LAB CHEMISTRY METHOD 02/13/2025 11:10 AM [facility] Calcium 9.3 8.5 - 10.5 mg/dL LAB CHEMISTRY METHOD 02/13/2025 11:10 AM [facility] AST (SGOT) 21 10 - 42 unit/L LAB CHEMISTRY METHOD 02/13/2025 11:10 AM [facility] ALT (SGPT) 14 10 - 60 unit/L LAB CHEMISTRY METHOD 02/13/2025 11:10 AM [facility] Alkaline Phosphatase 60 42 - 121 unit/L LAB CHEMISTRY METHOD 02/13/2025 11:10 AM [facility] Total Protein 7.3 6.0 - 8.0 g/dL LAB CHEMISTRY METHOD 02/13/2025 11:10 AM [facility] Albumin 3.4 3.2 - 5.0 g/dL LAB CHEMISTRY METHOD 02/13/2025 11:10 AM [facility] Total Bilirubin 0.3 0.0 - 1.4 mg/dL LAB CHEMISTRY METHOD 02/13/2025 11:10 AM EDT [facility] Blood Venous blood specimen / Unknown Venipuncture / Unknown 02/13/2025 8:31 AM EDT 02/13/2025 10:15 AM EDT us Fawad Ortega MD LAB BLOOD ORDERABLES Final Resu lt [facility] [address] [place] [address], documented in this encounter Visit Diagnoses Diagnosis Type 2 diabetes mellitus without complications (CMS/HCC V24, CMS/HCC V28) Magnesium deficiency Disorders of magnesium metabolism documented in this encounter Care Teams Grocery Associate Relationship Specialty Start Date End Date Fawad Ortega MD [address] [place] [address] PCP - General Internal Medicine 01/30/25 documented as of this encounter
--- OUTSIDE RECORDS SUMMARY | 2025-06-01 18:31 | XMS_ITS | Encounter Summary ---
Author Organization [facility] Address [address] [place] [address] Care Team Providers Care Income Auditor Name Role Phone Fawad Ortega MD Primary Care Provider [phone] Encounter Details Date Type Department Care Team (Latest Contact Info) Description 02/04/[address] [facility] - Main Lab [address] [facility] [place] [address] Fawad Ortega MD [address] [place] [address] Type 2 diabetes mellitus without [...] Complete blood count (02/06/2025 5:27 AM EDT) [facility] WBC 8.2 4.8 - 10.8 K/mcL LAB HEMETOLOGY METHOD 02/06/2025 10:23 AM [facility] RBC 3.10(L) 3.80 - 4.80 M/mcL LAB HEMETOLOGY METHOD 02/06/2025 10:23 AM [facility] Hemoglobin 9.3(L) 11.5 - 16.0 g/dL LAB HEMETOLOGY METHOD 02/06/2025 10:23 AM [facility] Hematocrit 28.0(L) 35.0 - 47.0 % LAB HEMETOLOGY METHOD 02/06/2025 10:23 AM [facility] MCV 89.2 79.0 - 98.0 FL LAB HEMETOLOGY METHOD 02/06/2025 10:23 AM [facility] MCH 29.6 27.0 - 32.0 pcg LAB HEMETOLOGY METHOD 02/06/2025 10:23 AM [facility] MCHC 33.2 32.0 - 37.0 g/dL LAB HEMETOLOGY METHOD 02/06/2025 10:23 AM [facility] RDW 13.6 11.0 - 15.0 % LAB HEMETOLOGY METHOD 02/06/2025 10:23 AM [facility] Platelets 398 130 - 400 K/mcL LAB HEMETOLOGY METHOD 02/06/2025 10:23 AM [facility] MPV 10.6 7.0 - 11.0 FL LAB HEMETOLOGY METHOD 02/06/2025 10:23 AM [facility] NRBC 0.0 <1.0 % LAB HEMETOLOGY METHOD 02/06/2025 10:23 AM [facility] NRBC Absolute 0.00 <0.10 K/mcL LAB HEMETOLOGY METHOD 02/06/2025 10:[address] [facility] Blood Venous blood specimen / Unknown Venipuncture / Unknown 02/06/2025 5:27 AM EDT 02/06/2025 9:53 AM EDT us Fawad Ortega MD LAB BLOOD ORDERABLES Final Resu lt Performing Organization Address [facility]/ZIP Co de Phone Number [facility] [address] [place] [address], [place] [phone] * Magnesium (02/06/2025 5:24 AM EDT) [facility] Magnesium 1.9 1.9 - 2.6 mg/dL LAB CHEMISTRY METHOD 02/06/2025 10:[address] [facility] Blood Venous blood specimen / Unknown Venipuncture / Unknown 02/06/2025 5:24 AM EDT 02/06/2025 10:03 AM EDT us Fawad Ortega MD LAB BLOOD ORDERABLES Final Resu lt Performing Organization Address [facility] Co de Phone Number [facility] [address] [place] [address], [place] [phone] * (ABNORMAL) Comprehensive metabolic panel (02/06/2025 5:24 AM EDT) [facility] Sodium 140 133 - 145 mmol/L LAB CHEMISTRY METHOD 02/06/2025 10:[address] [facility] Potassium 4.4 3.5 - 5.5 mmol/L LAB CHEMISTRY METHOD 02/06/2025 10:[address] [facility] Chloride 107 96 - 110 mmol/L LAB CHEMISTRY METHOD 02/06/2025 10:[address] [facility] CO2 25 21 - 32 mmol/L LAB CHEMISTRY METHOD 02/06/2025 10:[address] [facility] Anion Gap 8 3 - 11 LAB CHEMISTRY METHOD 02/06/2025 10:46 AM [facility] Glucose 90 70 - 100 mg/dL LAB CHEMISTRY METHOD 02/06/2025 10:46 AM [facility] BUN 18 5 - 25 mg/dL LAB CHEMISTRY METHOD 02/06/2025 10:46 AM [facility] Creatinine 1.44(H) 0.50 - 1.10 mg/dL LAB CHEMISTRY METHOD 02/06/2025 10:46 AM [facility] eGFR 37(L) >=60 mL/min/1. 73m2 LAB CHEMISTRY METHOD 02/06/2025 10:46 AM [facility] Comment:Calculation based on the Chronic Kidney Disease Epidemiology Collaboration (CKD-EPI) equation refit without adjustment for race. BUN/Creatinine Ratio 12.5 LAB CHEMISTRY METHOD 02/06/2025 10:46 AM [facility] Calcium 8.3(L) 8.5 - 10.5 mg/dL LAB CHEMISTRY METHOD 02/06/2025 10:46 AM [facility] AST (SGOT) 13 10 - 42 unit/L LAB CHEMISTRY METHOD 02/06/2025 10:46 AM [facility] ALT (SGPT) 11 10 - 60 unit/L LAB CHEMISTRY METHOD 02/06/2025 10:46 AM [facility] Alkaline Phosphatase 46 42 - 121 unit/L LAB CHEMISTRY METHOD 02/06/2025 10:46 AM [facility] Total Protein 6.2 6.0 - 8.0 g/dL LAB CHEMISTRY METHOD 02/06/2025 10:46 AM [facility] Albumin 3.0(L) 3.2 - 5.0 g/dL LAB CHEMISTRY METHOD 02/06/2025 10:46 AM [facility] Total Bilirubin 0.2 0.0 - 1.4 mg/dL LAB CHEMISTRY METHOD 02/06/2025 10:[address] [facility] Blood Venous blood specimen / Unknown Venipuncture / Unknown 02/06/2025 5:24 AM EDT 02/06/2025 10:03 AM EDT Fawad Ortega MD LAB BLOOD ORDERABLES Final Resu lt [facility] [address] [place] [address], documented in this encounter Visit Diagnoses Diagnosis Type 2 diabetes mellitus without complications (CMS/HCC V24, CMS/HCC V28) Magnesium deficiency Disorders of magnesium metabolism documented in this encounter Care Teams Income Auditor Relationship Specialty Start Date End Date Fawad Ortega MD [address] [place] [address] PCP - General Internal Medicine 01/30/25 documented as of this encounter
--- OUTSIDE RECORDS SUMMARY | 2025-06-01 18:31 | XMS_ITS | Encounter Summary ---
Author Organization [facility] Address [address] [place] [address] Care Team Providers Care Barrel Burner Name Role Phone Fawad Ortega MD Primary Care Provider [phone] Encounter Details Date Type Department Care Team (Latest Contact Info) Description 02/17/[address] [facility] - Main Lab [address] [facility] [place] [address] Fawad Ortega MD [address] [place] [address] Type 2 diabetes mellitus without [...] metabolism documented in this encounter Care Teams Barrel Burner Relationship Specialty Start Date End Date Fawad Ortega MD [address] [place] [address] PCP - General Internal Medicine 01/30/25 documented as of this encounter
--- OUTSIDE RECORDS SUMMARY | 2025-06-01 18:31 | XMS_ITS | Clinical Summary ---
Author Organization [address] Address [address] [place] [address] Phone Care Team Providers Care Help Desk Operator Name Role Phone Fawad Ortega MD Primary Care Provider [phone] Social History Tobacco Use Types Packs/Day Years [...] Health Screening 01/30/2025 COVID-19 Vaccine ( - 2024-2 6 season) 2025 Influenza Vaccine (#1) 2025 9, [...] Procedure Name Priority Date/Time Associated Diagnosis Comments COMPREHENSIVE METABOLIC PANEL Routine 02/13/2025 8:31 AM EDT Type 2 diabetes mellitus without complications ([facility] V24, [facility] V28) Magnesium deficiency from Last 3 Months or Most Recently Relevant to Health Maintenance Results * (ABNORMAL) Comprehensive metabolic panel (02/13/2025 8:31 AM EDT) Sodium 136 133 - 145 mmol/L LAB CHEMISTRY METHOD 02/13/2025 11:10 AM [facility] Potassium 4.1 3.5 - 5.5 mmol/L LAB CHEMISTRY METHOD 02/13/2025 11:10 AM [facility] Chloride 102 96 - 110 mmol/L LAB CHEMISTRY METHOD 02/13/2025 11:10 AM [facility] CO2 26 21 - 32 mmol/L LAB CHEMISTRY METHOD 02/13/2025 11:10 AM [facility] Anion Gap 8 3 - 11 LAB CHEMISTRY METHOD 02/13/2025 11:10 AM [facility] Glucose 128(H) 70 - 100 mg/dL LAB CHEMISTRY METHOD 02/13/2025 11:10 AM [facility] BUN 23 5 - 25 mg/dL LAB CHEMISTRY METHOD 02/13/2025 11:10 AM [facility] Creatinine 1.56(H) 0.50 - 1.10 mg/dL LAB CHEMISTRY METHOD 02/13/2025 11:10 AM [facility] eGFR 33(L) >=60 mL/min/1. 73m2 LAB CHEMISTRY METHOD 02/13/2025 11:10 AM [facility] Comment:Calculation based on the Chronic Kidney Disease Epidemiology Collaboration (CKD-EPI) equation refit without adjustment for race. BUN/Creatinine Ratio 14.7 LAB CHEMISTRY METHOD 02/13/2025 11:10 AM [facility] Calcium 9.3 8.5 - 10.5 mg/dL LAB CHEMISTRY METHOD 02/13/2025 11:10 AM [facility] AST (SGOT) 21 10 - 42 unit/L LAB CHEMISTRY METHOD 02/13/2025 11:10 AM [facility] ALT (SGPT) 14 10 - 60 unit/L LAB CHEMISTRY METHOD 02/13/2025 11:10 AM [facility] Alkaline Phosphatase 60 42 - 121 unit/L LAB CHEMISTRY METHOD 02/13/2025 11:10 AM [facility] Total Protein 7.3 6.0 - 8.0 g/dL LAB CHEMISTRY METHOD 02/13/2025 11:10 AM [facility] Albumin 3.4 3.2 - 5.0 g/dL LAB CHEMISTRY METHOD 02/13/2025 11:10 AM [facility] Total Bilirubin 0.3 0.0 - 1.4 mg/dL LAB CHEMISTRY METHOD 02/13/2025 11:10 AM [facility] Blood Venous blood specimen / Unknown Venipuncture / Unknown 02/13/2025 8:31 AM EDT 02/13/2025 10:15 AM EDT Fawad Ortega MD LAB BLOOD ORDERABLES Final Resu lt [facility] [address] [place] [address], from Last 3 Months or Most Recently Relevant to Health Maintenance Insurance [facility] MEDICARE [place]ICAID - [place] [facility] Care Teams Help Desk Operator Relationship Specialty Start Date End Date Fawad Ortega MD [address] [place] [address] PCP - General Internal Medicine 01/30/25
--- OUTSIDE RECORDS SUMMARY | 2025-06-01 18:31 | XMS_ITS | Encounter Summary ---
Author Organization [facility] Address [address] [place] [address] Care Team Providers Care Timekeeper Name Role Phone Fawad Ortega MD Primary Care Provider [phone] Encounter Details Date Type Department Care Team (Latest Contact Info) Description 01/30/2025 Lab Requisition [facility] - Main Lab [address] [facility] [place] [address] Fawad Ortega MD [address] [place] [address] Type 2 diabetes mellitus with [...] nonketotic hyperglycemic-hyperosm olar coma ([facility]) ([facility] V24, [facility] V28) Magnesium deficiency documented in this encounter Results * (ABNORMAL) Magnesium (01/30/2025 5:57 AM EDT) Pathologist [facility] Magnesium 1.4(L) 1.9 - 2.6 mg/dL LAB CHEMISTRY METHOD 01/30/2025 5:00 PM EDT [facility] Blood Venous blood specimen / Unknown Venipuncture / Unknown 01/30/2025 5:57 AM EDT 01/30/2025 12:26 PM EDT us Fawad Ortega MD LAB BLOOD ORDERABLES Final Resu lt [facility] [address] [place] [address], * (ABNORMAL) Comprehensive metabolic panel (01/30/2025 5:57 AM EDT) [facility] Sodium 138 133 - 145 mmol/L LAB CHEMISTRY METHOD 01/30/2025 5:02 PM [facility] Potassium 4.2 3.5 - 5.5 mmol/L LAB CHEMISTRY METHOD 01/30/2025 5:02 PM [facility] Chloride 103 96 - 110 mmol/L LAB CHEMISTRY METHOD 01/30/2025 5:02 PM [facility] CO2 26 21 - 32 mmol/L LAB CHEMISTRY METHOD 01/30/2025 5:02 PM [facility] Anion Gap 9 3 - 11 LAB CHEMISTRY METHOD 01/30/2025 5:02 PM [facility] Glucose 86 70 - 100 mg/dL LAB CHEMISTRY METHOD 01/30/2025 5:02 PM [facility] BUN 30(H) 5 - 25 mg/dL LAB CHEMISTRY METHOD 01/30/2025 5:02 PM [facility] Creatinine 1.68(H) 0.50 - 1.10 mg/dL LAB CHEMISTRY METHOD 01/30/2025 5:02 PM [facility] eGFR 31(L) >=60 mL/min/1. 73m2 LAB CHEMISTRY METHOD 01/30/2025 5:02 PM [facility] Comment:Calculation based on the Chronic Kidney Disease Epidemiology Collaboration (CKD-EPI) equation refit without adjustment for race. BUN/Creatinine Ratio 17.9 LAB CHEMISTRY METHOD 01/30/2025 5:02 PM [facility] Calcium 8.9 8.5 - 10.5 mg/dL LAB CHEMISTRY METHOD 01/30/2025 5:02 PM [facility] AST (SGOT) 18 10 - 42 unit/L LAB CHEMISTRY METHOD 01/30/2025 5:02 PM [facility] ALT (SGPT) 15 10 - 60 unit/L LAB CHEMISTRY METHOD 01/30/2025 5:02 PM [facility] Alkaline Phosphatase 50 42 - 121 unit/L LAB CHEMISTRY METHOD 01/30/2025 5:02 PM [facility] Total Protein 6.3 6.0 - 8.0 g/dL LAB CHEMISTRY METHOD 01/30/2025 5:02 PM [facility] Albumin 3.0(L) 3.2 - 5.0 g/dL LAB CHEMISTRY METHOD 01/30/2025 5:02 PM [facility] Total Bilirubin 0.2 0.0 - 1.4 mg/dL LAB CHEMISTRY METHOD 01/30/2025 5:02 PM [facility] Blood Venous blood specimen / Unknown Venipuncture / Unknown 01/30/2025 5:57 AM EDT 01/30/2025 12:26 PM EDT us Fawad Ortega MD LAB BLOOD ORDERABLES Final Resu lt [facility] [address] [place] [address], * (ABNORMAL) Complete blood count (01/30/2025 5:57 [...] Final Resu lt [facility] [address] [place] [address], documented in this encounter Visit Diagnoses Diagnosis Type 2 diabetes mellitus with hyperosmolarity without nonketotic hyperglycemic-hyperosmolar coma (NKHHC) (CMS/HCC V24, CMS/HCC V28) Magnesium deficiency Disorders of magnesium metabolism documented in this encounter Care Teams Timekeeper Relationship Specialty Start Date End Date Fawad Ortega MD [address] [place] [address] PCP - General Internal Medicine 01/30/25 documented as of this encounter
--- OUTSIDE RECORDS SUMMARY | 2025-06-01 18:31 | XMS_ITS | Patient Health Record ---
Author Organization [facility] morris KaplanEdwin Address [address] [facility] [place] [address] Care Team Providers Care Loom Changer Name Role Phone Mitul Mccrary Primary Care Provider Rob bueno Quyen De Leon Unavailable [phone] Allergies Allergen (clinical drug ingredient) Drug/Non Drug [...] Oral; Duration: 30 Active Magnesium Active Calcitonin ([place]) 200 UNIT/ACT USE 1 SPRAY NASALLY QD. [...] Oral; Duration: 90 Active Vitamin D (Ergocalciferol) 72159 UNIT TK 1 C PO ONCE A WEEK Oral; Duration: 90 Not-Taking traMADol HCl 50 MG (Schedule IV Drug) T K 2 TS PO TID Oral; Duration: 30 Active Jmcpddaybt-GZBR-Hjwysnjd 50-325-40 MG 1 capsule as needed Orally [...] Problem Acquired hammer toe of right foot (0008777686559887 ) Other hammer toe(s) (acquired), right foot (M20.41) Active confirmed Problem Acquired hammer toe of left foot (5401021632907581 ) Other hammer toe(s) (acquired), left foot (M20.42) Active confirmed Problem Non-pressure chronic ulcer of other part of left foot limited to breakdown of skin (L97.521) Active confirmed Problem Chronic ulcer of foot (546976676) Non-pressure chronic ulcer of left heel and midfoot with fat layer exposed (L97.422) Active confirmed Problem Polyneuropathy due to type 2 diabetes mellitus (334194100) Type 2 diabetes mellitus with diabetic polyneuropathy (E11.42) Active confirmed Problem Primary gout (97945499) Idiopathic gout, right ankle and foot (M10.071) Active confirmed Problem Foot ulcer due to type 2 diabetes mellitus (0094252304163) Type 2 diabetes mellitus with foot ulcer (E11.621) Active confirmed Problem Acquired hammer toe of left foot (5791349236085817 ) Hammertoe of left foot (M20.42) Active confirmed Problem Acquired hammer toe of right foot (4167096300811615 ) Hammertoe of right foot (M20.41) Active confirmed Problem Bilateral atherosclerosis of arteries of lower limbs (disorder) (0247176732166499 7) Atherosclerosis of artery of both lower extremities (I70.203) Active confirmed Problem 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) Active confirmed Problem Gouty arthritis of left foot (4809371126106292 ) Gouty arthritis of left foot (M10.9) Active confirmed Problem Arthritis of left ankle (8286749434141225 ) Arthritis of left ankle (M19.072) Active confirmed Problem Neuropathic ulce r of left heel, limited to breakdown of skin (L97.421) Active confirmed Response to treatment Vital Signs Blood pressure diastolic 75 mm Hg 06/13/2024 Height 5 ft 3 in in 06/13/2024 Blood pressure systolic 130 mm Hg 06/13/2024 Weight 198 lbs 06/13/2024 BMI 35.07 kg/m2 06/13/2024 Encounters Encounter Location Date Provider Diagnosis [address] [address] 06/13/2024 Quyen De Leon Non-pressure chronic ulcer of left heel and midfoot with fat layer exposed L97.422 ; Atherosclerosis of artery of both lower extremities I70.203 and Ingrown nail L60.[address] [address] 08/04/2024 Quyen De Leon Arthritis of left ankle M19.072 and Lower extremity edema R60.[address] [address] 06/09/2024 Quyen De Leon [address] [address] 06/15/2024 Quyen De Leon [address] [address] 06/22/2024 Quyen De Leon Ingrown nail L60.[address] [facility] [address] 08/04/2024 [facility] De [facility] [address] 08/15/2024 Quyen De Leon [facility] [address] 11/28/2024 Quyen Pintoaker Assessments Encounter Date Diagnosis (ICD Code) Assessment Notes Treatment Notes Treatment Clinical Notes Section Notes 06/13/2024 Atherosclerosis of artery of both lower extremities (ICD-10 - I70.203) 06/22/2024 Ingrown nail (ICD-10 - L60.0) 08/04/2024 Arthritis of left ankle (ICD-10 - M19.072) 08/04/2024 Lower extremity edema (ICD-10 - R60.0) 06/13/2024 Non-pressure chronic ulcer of left heel and midfoot with fat layer exposed (ICD-10 - L97.422) 06/13/2024 Ingrown nail (ICD-10 - L60.0) 06/13/2024 Other Plan Of Treatment Pending Test [...] X ray : Foot, right 3V 08/30/2018 83638- Removal of Foreign Body, Subcut 0 11/25/2016 X ray : Ankle, right 3V 02/27/2020 Insurance Providers Payer Name Payer Address Payer Phone Subscriber Number Group Number Insured Name Patient Relationship to Insured Coverage Start Date Coverage End Date Medicare [employer] [address] [place] [address] [id number] PrecWanda kyle Self - patient is the insured 1 [facility] [address] [place] [address] [id number] PrecMitul kyle Spouse - patient is the spouse of the insured Standard [address] [place] [address] [id number] Wanda Blum Self - patient is the [...] Back sx 03/10/2016 Hospitalization History Reason Date(Month/Year[place] [facility] [place] 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
== END 2025-06-01 17:25 | disposition home or self-care (01) ==
LOC: HO.HMCC 15:24
PROVIDERS: PCP Nurse Practitioner Family; Visit Provider Nurse Practitioner Family
DX: E11.22 Type 2 diabetes mellitus with diabetic chronic kidney disease (principal)

== ENCOUNTER → 2025-06-01 15:23 | Outpatient (BNVA) | payer MEDICARE, BC, OTHER, MEDICAID, SELFPAY | PROVIDERS: PCP Nurse Practitioner Family; Visit Provider Nurse Practitioner Family | DX: E11.22 Type 2 diabetes mellitus with diabetic chronic kidney disease (principal); N18.9 Chronic kidney disease, unspecified | CPT/HCPCS: 83036; 96127; 99211; 99212 ==